=== PATIENT | male | born 1945 | race Caucasian/White ===

== ENCOUNTER → 2020-03-28 10:08 | Outpatient (BNVA) | payer MEDICARE, BC, SELFPAY | PROVIDERS: Family Provider Family Medicine; PCP Family Medicine; Visit Provider Registered Nurse | DX: E11.9 Type 2 diabetes mellitus without complications (principal); Z79.4 Long term (current) use of insulin | CPT/HCPCS: 80053; 80061; 83036; 85025 ==

== ENCOUNTER 2020-03-29 09:39 | Outpatient (CLI) | payer MEDICARE, BC, SELFPAY ==
--- NOTE | 2020-03-29 10:15 | USCV_ITS ---
Ashvin Hickey Age: 74 Gender: M : 1945 Exam Date: 03/29/2020 10:34 Ordering Phys: Luis Mast MD ([email or web address]) Technologist: Sedrick Irving Exam Location: [facility] [place] Indication: CHECK AO STENT HISTORY: check stent Diameter (cm) AP x Transverse x Length Velocity (cm/s) Waveform Prox Aorta: x x 33.70 Mid Aorta: x x Distal Aorta: x x Right Iliac Prox: x x Left Iliac Prox: x x Stent Prox Landing 1.71 x 1.35 x 69.00 Aneurysmal Sac Max 3.64 x 2.99 x 63.60 Lt Lat Sac Dim 1.36 Rt Lat Sac Dim 1.38 Stent Dist Landing 2.56 2.88 x 59.30 x Right Iliac Stent 1.53 x 1.61 x 44.70 Left Iliac Stent 1.49 x 1.68 x 51.00 Right Renal Art 125.70 Left Renal Art 132.90 FINDINGS: normal aortic stent Technically difficult study. Aneurysmal sac measuring 3.64 x 2.99 cm The proximal stent landing zone measured 1.71 x 1.35 cm. The distal stent landing zone measured 2.56 x 2.88 cm? Normal Doppler flow velocities CONCLUSIONS 1. Patent aortic stent graft 2. Aneurysm sac measured 3.64 x 2.99 cm. 3. Patent landing zones 4. Patent iliac stent grafts measuring 1.53 x 1.61on the right side and 1. 49 x 1. 68 on the left side 5. No evidence of endoleak Technically difficult study because of the poor ultrasonic window. Comparison with the previous study is difficult because of the difference in the technical quality Dr Gloria Lucas MD [facility] (Electronically Signed) Final Date: 29 March 2020 18:43 S
--- NOTE | 2020-03-29 11:00 | USCV_ITS ---
Ashvin Hickey Age: 74 Gender: M : 1945 Exam Date: 03/29/2020 10:40 Ordering Phys: Luis Mast MD ([email or web address]) Technologist: Lamonte Guadarrama Exam Location: [facility] [place] Indication: CHECK STENT Risk Factors: Previous Vascular Surgery: Right Brachial BP: / Left Brachial BP: / Right Left Velocity (cm/s) Spectral Plaque Velocity (cm/s) Spectral Plaque Syst/Diast Broadening Syst/Diast Broadening 63.70/ 16.30 Prox CCA 39.30 / 10.10 94.00/ 21.80 Mid CCA 93.20 / 20.20 93.20/ 11.70 Distal CCA 67.60 / 21.00 66.70/ 14.80 Prox ICA 174.10/ 60.70 105.10/35.00 Mid ICA 151.70/ 44.80 84.10/ 25.40 Distal ICA 64.40 / 21.10 174.40 ECA 143.30 1.12 ICA/CCA 1.63 Antegrade Vertebral Antegrade 87.10/ 20.90 cm/s 70.70/ 17.10 cm/s Bi Subclavian Bi 169.6 133.4 0 0 CONCLUSIONS Right ICA stenosis <50%. Moderate atheromatous plaque right carotid bulb/ICA. Left ICA stenosis 50-69%. Moderate atheromatous plaque left carotid bulb/ICA. Normal antegrade Doppler flow noted in the right vertebral artery. Normal antegrade Doppler flow noted in the left vertebral artery. Ayan Calabrese MD (Electronically Signed) Final Date: 30 March 2020 11:12 S
== END 2020-03-29 09:40 | disposition home or self-care (01) ==
LOC: RAD 09:45
PROVIDERS: PCP Family Medicine; Visit Provider Internal Medicine Cardiovascular Disease
DX: I65.23 Occlusion and stenosis of bilateral carotid arteries (principal); I71.4 Abdominal aortic aneurysm, without rupture
CPT/HCPCS: 93880; 93978

== ENCOUNTER → 2020-09-24 10:08 | Outpatient (BNVA) | payer MEDICARE, BC, SELFPAY | PROVIDERS: PCP Family Medicine; Visit Provider Internal Medicine | DX: R06.02 Shortness of breath (principal); R07.9 Chest pain, unspecified; R55 Syncope and collapse | CPT/HCPCS: 87635 ==

== ENCOUNTER 2020-09-26 10:25 | Outpatient (CLI) | payer MEDICARE, BC, SELFPAY ==
[2020-09-26 10:58] LABS: Basophils # 0.1 10^3/uL (0.0-0.1); Basophils % 0.8 %; Eosinophils # 0.4 10^3/uL (0.0-0.8); Eosinophils % 3.2 %; Hematocrit 40.6 % (42.0-52.0); Hemoglobin 13.2 g/dL (11.7-16.6); Lymphocytes # 3.1 10^3/uL (0.8-4.8); Lymphocytes % 25.2 %; Mean Corpuscular HGB Conc 32.5 g/dL (30.0-36.0); Mean Corpuscular Hemoglobin 28.6 pg (28.0-34.0); Mean Corpuscular Volume 87.9 fL (80-94); Mean Platelet Volume 9.3 fL (7.4-10.4); Monocytes # 1.2 10^3/uL (0.2-0.9); Monocytes % 9.5 %; Neutrophils # 7.54 10^3/uL (1.8-7.7); Neutrophils % 61.1 %; Nucleated Red Blood Cells % 0 %; Platelet Count 354 10^3/cmm (130-400); Red Blood Count 4.62 10^6/uL (4.1-5.3); Red Cell Distribution Width 14.3 % (12.1-15.1); White Blood Count 12.4 10^3/uL (4.0-10.0)
[2020-09-26 11:13] LABS: INR 1.02 (0.8-1.2)
[2020-09-26 11:19] LABS: Anion Gap 13.1 (5-19); Blood Urea Nitrogen 11 mg/dL (8-23); Calcium 8.8 mg/dL (8.5-10.5); Carbon Dioxide 28 mmol/L (22-29); Chloride 101 mmol/L (98-107); Glucose 145 mg/dL (65-115); Osmolality Calculated 288 mOsm/kg (285-295); Potassium 4.1 mmol/L (3.5-5.1); Sodium 138 mmol/L (136-145)
== END 2020-09-26 10:26 | disposition home or self-care (01) ==
PROVIDERS: PCP Family Medicine; Visit Provider Internal Medicine
DX: R06.02 Shortness of breath (principal); R07.9 Chest pain, unspecified; R55 Syncope and collapse
CPT/HCPCS: 36415; 80048; 85025; 85610

== ENCOUNTER 2020-09-28 07:26 | Day surgery (SDC) | payer MEDICARE, BC, SELFPAY ==
[2020-09-28] VITALS (23 sets, daily range): BP systolic 137–170; BP diastolic 54–76; PULSE 56–68; RESP 8–23; TEMP 36.8; O2SAT 91–99; BMI 26.9
[2020-09-28] MEDS: diphenhydrAMINE 50 mg Capsule PO (07:30)
--- NOTE | 2020-09-28 07:30 | XACV_ITS ---
Exam Room: 1 Ht: 173 cm Wt: 80 kg BSA: 1.98 m2 Gender: Male : 1945 Any Known Allergies: No known allergies Exam Priority: Routine Procedure(s): Procedure Description: Diagnostic procedure Procedure Description: PCI procedure Procedure Description: Left Heart Catheterization Procedure Description: Right Heart Catheterization Procedure Description: O2 saturation Procedure Description: Drug Eluting Coronary Stent Procedure Description: PTCA Procedure Description: Coronary Angiography Procedure Description: Percutaneous coronary intervention Diagnostic Cath Status: Elective Diagnostic Findings * LAD has no significant stenosis. It gives rise to a medium sized diagonal branch which does not have severe stenosis.. * CX is a medium sized vessel. It has diffuse moderate disease. It gives rise to OM branch that also has diffuse disease.. * RCA arises from right coronary cusp. * It has a long stent from proximal to distal vessel. * In the distal portion of the stent there is severe 95% in-stent restenosis. Proximally there is 20 to 30% in-stent restenosis. * D * istal Right Coronary Artery: Severe 95% stenosis, LANCE: 3 flow. * Right heart cath findings: RA pressure: 14/11(9) mmHg RV pressure: 41/6(13) millimeters of mercury PA pressure: 38/17(24) mmHg PCW: 17/24(17) mmHg PA sat: 59.2% Ao sat 94.1% Cardiac output by Aaron 3.5 L/min. * LM has 0% stenosis. * Coronary angiography shows right dominance. PCI Status: Elective PCI Indication: New Onset Angina <= 2 months Interventional Findings * We engaged the right coronary artery with a JR4 guide catheter. A 0.014 run-through guidewire was used to cross the distal RCA in-stent restenosis and was put in the large PLV branch. We used a 2.5 x 15 mm semicompliant balloon to predilate the stenosis. This was followed by placement of a 3.0x15 mm resolute Tyson drug-eluting stent. We used the stent balloon to dilate the proximal end of the prior stent as well. At this time final angiogram was performed that showed excellent stent expansion, LANCE-3 flow and no residual stenosis. Guidewire and guide catheter were removed. TR band was applied to achieve hemostasis. Patient left the Honing Machine Set Up Operator in a stable condition.. * Distal Right Coronary Artery: 95% stenosis treated with AB TREK 2.50X15 RX BALLOON and MDT R TYSON 3.0X15 JAMSHID. 0% residual stenosis, LANCE: 3 flow. Conclusions 1. Mildly elevated left-sided pressures. 2. There is severe coronary artery disease with one vessel disease. 3. Distal Right Coronary Artery was treated with Balloon and Drug Eluting Stent. Recommendations * Continue aspirin, Plavix and Xarelto for * 2 weeks. After 2 weeks * we will stop aspirin and continue on Plavix and Xarelto.. * High intensity statin therapy. * Aggressive risk factor control. * Follow-up with cardiology clinic. Interventional RX Recommendation: PCI w/o planned CABG Diagnostic RX Recommendation: PCI w/o planned CABG Anticoagulation: Heparin Pressures Phase:Rest AO : 139 / 40 ( 74 ) @ 3:06:00 AM 140 / 38 ( 76 ) @ 3:07:00 AM 131 / 42 ( 73 ) @ 3:08:00 AM 149 / 47 ( 84 ) @ 3:16:00 AM 125 / 42 ( 73 ) @ 3:22:00 AM 146 / 48 ( 83 ) @ 3:23:00 AM 163 / 50 ( 88 ) @ 3:26:00 AM 131 / 37 ( 58 ) @ 3:26:00 AM LV : 167 / -6 / @ 3:26:00 AM 166 / -5 / @ 3:26:00 AM RV : 41 / 6 / @ 2:51:00 AM PA : 38 / 17 ( 24 ) @ 2:52:00 AM RA : a wave = v wave = mean = 9 @ 2:50:00 AM O2 Content Phase:Rest PA : O2 Content O2: 59.2 @ 3:06:00 AM Saturations Phase:Rest AO : 94 @ 3:07:00 AM PA : 59 @ 3:06:00 AM Cardiac Output Phase:Rest Aaron : 3 @ 3:06:00 AM Aaron Cardiac Index: 2 @ 3:06:00 AM Valves Phase:DefaultPhase AV : 2.0 @ 9:32:58 AM 2.0 @ 9:32:58 AM AV Mean Gradient: 11.0 @ 9:32:58 AM Clinical Evaluation EBL: 5mL-10mL Procedural Details Procedure Consent Obtained. Pre-Procedure Time Out. Identified patient by full name and date of as verbalized by the patient/guarantor. Does the consent match the physician's order: Yes. Accurate & Complete Informed Consent: Yes. Inpatient/Outpatient History & Physical on Chart: Yes. If H&P is completed, is and addenduem needed: Yes; If yes, is the addendum complete: N/A. Visualize and Verify Site with Patient/Guarantor: N/A. Relevant Radiology Images available: Yes. Pre-op teaching completed and patient verbalized understanding. The risks, benefits, and alternatives of sedation and/or procedure were discussed by physician. The patient agrees to continue. Procedure started. [facility] Clinical Fraility Score: 3: Managing Well. Honing Machine Set Up Operator Indications: Suspected CAD. Chest Pain Symptom Assessment: Typical Angina Symptoms. Correct patient, site and procedure confirmed by cath team. Current diagnosis: Chest Pain. PERRLA. Strong, equal hand flotation tender bilaterally. Lungs clear x 5 lobes. IV Site on Arrival: 22 gauge in the left anticubital. IV Fluids: 0.9% NaCl at KVO. 0 mL infused prior to systems testing laboratory technician. Pre Procedural Pulses: bilateral dorsalis pedis was Doppled. Pre Procedural Pulses: bilateral posterior tibial was Doppled. Pre Procedural Pulses: bilateral radial was 2+. right radial was prepped with chloroprep then draped in the usual sterile fashion. right brachial was prepped with chloroprep then draped in the usual sterile fashion. Physician notified. Baseline sample Acquired. HR: 53 BPM. Physician arrived. Patient's family unavailable. Physician scrubbed in. Immediate Pre-Procedure Time Out. Correct Patient: Yes; Correct Procedure: Yes; Correct Site: Yes; Correct Patient Position: Yes; Correct Supplies: Yes; Dried Flammable Prep: Yes; Blood Products Available: N/A;. Lidocaine 1% infiltrated to the right brachial. sheath wire inserted through the IV catheter. IV catheter removed OTW. [place]Sand[place] MON catheter inserted. Oximetry samples were obtained. Normal venous range: 60-85%. Normal arterial range: 95-100%. Pressure measurements obtained. [place]Sandie out. Lidocaine 1% infiltrated to the right radial. Oxygen started at 2liters/min via nasal canula. Arterial access obtained. A 5 thai TIG catheter in over wire. wire out. contrast hand injected through the catheter. glidewire inserted through the catheter. Inventory is TR Glidewire Angled .038 260cm. Multiple views taken of left coronary artery. Catheter redirected to the RCA. Multiple views taken of right coronary artery. Catheter removed over the exchange wire. 6 thai JR 4 guide catheter was inserted over the wire. Runthrough guidewire was advanced through the guide catheter to lesion in the distal RCA. Inflation number : 1 A AB TREK 2.50X15 RX BALLOON was prepped and advanced across the Dist RCA , then inflated to 12 [place] for 0:33 seconds. Balloon out. Results checked. Inflation Number : 2 A YUE Garcia TYSON 3.0X15 JAMSHID -Lot Number# [id number] EXP: 06/15/2022 was prepped and advanced across the Dist RCA. The stent was deployed at 14 [place]IN[place]O for 0:31 seconds. Inflation number: 3 The stent balloon was then re-inflated across the Dist RCA to 14 [place]O for 0:15 seconds. Inflation number: 4 The stent balloon was then re-inflated across the Dist RCA to 18 [place]IN[place]O for 0:23 seconds. Stent balloon out over wire. Wire out. EDP Sample taken: LV 167/-7,21; HR: 61 BPM; SpO2: 94%. Pullback taken: LV 166/-6,21; AO 163/50(88); Mean: 11mmHg, Peak to Peak: 2mmHg, SEP: 19sec/min; HR: 62 BPM; SpO2: 92%. Guide catheter out. A Manual Compression was successful obtaining hemostatsis at the Right Brachial Vein insertion site. A TR Band was successful obtaining hemostatsis at the Right Radial artery insertion site. Post Procedure: Pulses reassessed and unchanged. PERRLA. Strong, equal hand flotation tender bilaterally. No VTE prophylaxis required. Contrast type used: Omnipaque 300 mgI/mL, 500 mL bottle. Post-op diagnosis: CAD. Complications: None. Estimated blood loss: 5mL-10mL. Procedure completed. Total IV fluids: 75 mL. Medication's Wasted: Lidocaine 1% = 15 mL. Medication's Wasted: Heparin = 2000 units. Medication's Wasted: Nitro = 49.8 mcg. Patient transferred by wheelchair to ICU. Vital chart was stopped. Access Site Site: Right Brachial Vein Sheath Size: 6 Fr Hemostasis Method: Manual Compression Hemostasis Success: Successful Site: Right Radial artery Sheath Size: 6 Fr Hemostasis Method: TR Band Hemostasis Success: Successful Procedure Medications Start: 8:46 AM Stop: 8:46 AM Medication: Versed Amount: 1 mg Route: I.V. Start: 8:46 AM Stop: 8:46 AM Medication: Fentanyl Amount: 50 mcg Route: I.V. Start: 8:59 AM Stop: 8:59 AM Medication: Nitrogylcerin Amount: 200 mcg Route: I.A. Start: 9:02 AM Stop: 9:02 AM Medication: Heparin Amount: 5000 units Route: I.V. Start: 9:13 AM Stop: 9:13 AM Medication: Heparin Amount: 4000 units Route: I.V. Start: 9:20 AM Stop: 9:20 AM Medication: Versed Amount: 1 mg Route: I.V. Start: 9:20 AM Stop: 9:20 AM Medication: Fentanyl Amount: 50 mcg Route: I.V. Start: 9:24 AM Stop: 9:24 AM Medication: Aspirin Amount: 325 mg Route: P.O. Start: 9:24 AM Stop: 9:24 AM Medication: Plavix Amount: 300 mg Route: P.O. I, the attending physician, have reviewed and verified all procedure medications. Yes, all medications given per verbal order History/Risk Factors Hypertension: Yes Dyslipidemia: Yes Peripheral Arterial Disease (PAD): Yes Myocardial Infarction (NH): No Obesity: No Renal Disease: No Prior 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 PCI: Yes CABG: No Valve Surgery: No Date of PCI: 11/04/2017 Report Signatures Finalized by Art Mays MD on 10/09/2020 06:45 PM
--- NOTE | 2020-09-28 08:25 | W.PM.OPSUD ---
Surgery/Procedure H&P Update DATE OF PROCEDURE: September 28, 2020 DATE H&P PERFORMED: 09/05/20 H&P UPDATE INFORMATION: I have reviewed H&P completed within last 30 days, I have examined patient prior to procedure and No changes to prior documentation PREOP DIAGNOSIS: Worsening angina PRIMARY INDICATION FOR PROCEDURE: Worsening angina PLANNED PROCEDURE: Operation Date: 09/28/20 08:30 Proposed Procedures p left and right Cardiac Catheterization 70588 R06.02(Bilateral) - Art Mays M.D Possible percutaneous coronary intervention PATIENT REASSESSED PRIOR TO SEDATION, WITH NO CHANGE NOTED: Yes PHYSICAL EXAM: alert, oriented x 3 and clear to auscultation bilaterally AIRWAY EVAL/ANESTHESIA PLAN: ASA III, Risks, benefits & alternatives of sedation and/or procedure discussed and Patient agrees to continue as planned
--- NOTE | 2020-09-28 09:37 | PC.CHAP ---
Pastoral Care Encounter/Spiritual Assessment Type of Contact [] Declined dock boss visit [] Patient/Family/Request visit [] Outpatient visit [] Follow-up visit [] Physician referral [] Code/Alert [] Routine visit [] Staff referral [] Actively dying [] Patient sleeping [] Family support [] [] Out of room [] Palliative care [] [] Receiving care in room [] Pre-surgical visit [] Trauma [] Long length of stay [x] ICU visit [] Other: Relational/Emotional Strength [] Patient feels connected with others/family/visitors/staff [] Distress [] Loneliness/isolation [] Abandonment Spirituality of Patient [] Person of Jewell [] Attends Nondenominational of their Jewell [] Believes in Prayer [] Reads Bible or Baptism materials [] There are Spiritual issues to be addressed 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 [x] Prayer [] Active listening [] Non-anxious presence [] Spiritual/emotional support [] Crisis/trauma care [] Spiritual counseling [] Bereavement support [] Provided bereavement packet [] Provided Bible/devotional materials [] Provided toy/stuffed animal, coloring book to patient or family member [] Provided Communion [] Anointing/Dahlgren [] Salvation [x] Completed spiritual assessment [] Other: Impact on Illness or Injury [] Angry [] Fearful [] Anxious [] Often cries [] Exhaustion [] Unable to work [] Unable to attend baptist [] Unable to walk/stand [] Unable to read [] Unable to drive [] Unable to eat/drink [] Unable to sleep [] Unable to be with family [] Patient intubated [] Other: Summary Time spent with patient
--- NOTE | 2020-09-28 09:40 | PC.NURSE ---
Pt to ICU from [facility]. Pressure dressing on right elbow and TR band on right wrist. Radial pulse faint, hand and lower arm dusky in color. Pt denies any pain. Sinus bradycardia noted on monitor.
--- NOTE | 2020-09-28 11:30 | PC.NURSE ---
Release of TR band started
--- NOTE | 2020-09-28 11:47 | PC.NURSE ---
1145: 2ML RELEASED FROM TR BAND. CAP REFIL ABT 4 SEC.
--- NOTE | 2020-09-28 12:00 | PC.NURSE ---
Pressure dressing right elbow removed Bioclusive and gauze dressing applied. Pt tolerated well.
[2020-09-28 12:19] LABS: Glucose Point of Care 121 mg/dL (70-110)
--- NOTE | 2020-09-28 14:15 | PC.NURSE ---
TR band removed. NO bleeding noted. NO hematoma noted. Pt tolerated well. Bioccluisve dressing applied.
[2020-09-28 17:25] LABS: Glucose Point of Care 179 mg/dL (70-110)
[2020-09-28] MEDS: ferrous sulfate EC 325 mg Tablet PO (17:36)
--- NOTE | 2020-09-28 19:00 | PC.NURSE ---
Report given to Sophia Roque
--- NOTE | 2020-09-28 19:18 | PC.NURSE ---
Shift summary: VSS. no hematoma or bleeding noted form left or right heart cath sites : RIght AC and right wrist. Pt's heart rhythm stable no ectopy sinus bradycardia to sinus rhythm. No pain per pt. Pt able to get out of bed this evening without difficulty. Pt uses urinal, clear pale yellow urine. IV fluids remain infusing into left AC. Pt received 10 unit Aspart insulin at lunch and again at dinner. Dosage discussed with Dr Mays, as not pt's usual home dose, pt's on consistent carb diet. He stated he normally eats about 60 carbs each meal.
[2020-09-28] MEDS: insulin glargine 100 units/1 mL 40 UNIT SUBCUT (20:17)
[2020-09-28] MEDS: sotalol 80 mg Tablet 120 MG PO (20:18)
[2020-09-28 20:24] LABS: Glucose Point of Care 316 mg/dL (70-110)
[2020-09-29] VITALS (9 sets, daily range): BP systolic 163–176; BP diastolic 68–76; PULSE 60–62; RESP 12–22; TEMP 36.6; O2SAT 92–94
[2020-09-29 05:26] LABS: Basophils # 0.1 10^3/uL (0.0-0.1); Basophils % 0.6 %; Eosinophils # 0.4 10^3/uL (0.0-0.8); Eosinophils % 3.1 %; Hematocrit 38.4 % (42.0-52.0); Hemoglobin 12.6 g/dL (11.7-16.6); Lymphocytes % 23.7 %; Mean Corpuscular HGB Conc 32.8 g/dL (30.0-36.0); Mean Corpuscular Volume 88.3 fL (80-94); Mean Platelet Volume 9.6 fL (7.4-10.4); Monocytes # 1.2 10^3/uL (0.2-0.9); Neutrophils # 7.76 10^3/uL (1.8-7.7); Neutrophils % 62.3 %; Nucleated Red Blood Cells % 0 %; Platelet Count 339 10^3/cmm (130-400); Red Blood Count 4.35 10^6/uL (4.1-5.3); Red Cell Distribution Width 14.3 % (12.1-15.1); White Blood Count 12.5 10^3/uL (4.0-10.0)
[2020-09-29 05:44] LABS: Blood Urea Nitrogen 13 mg/dL (8-23); Calcium 8.8 mg/dL (8.5-10.5); Carbon Dioxide 23 mmol/L (22-29); Chloride 104 mmol/L (98-107); Glucose 145 mg/dL (65-115); Osmolality Calculated 289 mOsm/kg (285-295); Sodium 138 mmol/L (136-145)
[2020-09-29 05:57] LABS: Anion Gap 14.7 (5-19); Potassium 3.7 mmol/L (3.5-5.1)
[2020-09-29 07:40] LABS: Glucose Point of Care 139 mg/dL (70-110)
[2020-09-29] MEDS: sotalol 80 mg Tablet 120 MG PO (08:06)
--- NOTE | 2020-09-29 08:38 | PC.NURSE ---
at bedside talking with patient.
[2020-09-29] MEDS: amlodipine 10 mg Tablet PO (09:19)
[2020-09-29] MEDS: atorvastatin 40 mg Tablet 20 MG PO (09:19)
[2020-09-29] MEDS: hydroCHLOROthiazide 25 mg Tablet 12.5 MG PO (09:19)
[2020-09-29] MEDS: clopidogrel 75 mg Tablet PO (09:19)
[2020-09-29] MEDS: rivaroxaban 10 mg Tablet 20 MG PO (09:19)
[2020-09-29] MEDS: pantoprazole DR 40 mg Tablet PO (09:20)
[2020-09-29] MEDS: ferrous sulfate EC 325 mg Tablet PO (09:20)
[2020-09-29] MEDS: losartan 50 mg Tablet 100 MG PO (09:20)
--- NOTE | 2020-09-29 10:17 | P.SS_ITS ---
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 He was experiencing these symptoms with minimal exertion. Plan was for right and left heart cath with possible percutaneous coronary intervention. Review of Systems 2 General: Reports: 10 or more systems reviewed and unremarkable except in HPI and below Const: Reports: fatigue; Denies: fever(s), chills or body aches Eyes: Denies: change in vision ENMT: Denies: throat pain or odynophagia Card: Reports: chest pain, palpitations, swelling of feet/ankles, pre-syncope, dyspnea on exertion and orthopnea; Denies: lightheadedness Resp: Reports: dyspnea and productive cough; Denies: non-productive cough or wheezing GI: Denies: nausea, vomiting or heartburn : Reports: difficulty urinating Musc: Denies: back pain Skin/Breast: Denies: rash or pruritus Neuro: Denies: headache(s), numbness in extremities, weakness in extremities or dizziness Psych: Denies: anxiety or depression Stanislav/Lymph: Reports: easy bruising and easy bleeding Home Meds/Allergies Home Medications and Allergies Home Medications Medication Instructions Recorded Confirmed Type ferrous sulfate 325 mg (65 mg 325 mg PO BID 02/10/20 09/27/20 History iron) tablet pantoprazole 40 mg tablet,delayed 40 mg PO DAILY 07/05/20 09/28/20 History release Allergies Allergy/AdvReac Type Severity Reaction Status Date / Time No Known Allergies Allergy Verified 09/27/20 13:03 PFSH Acute PFSH: Medical History Abdominal aortic aneurysm (AAA) Afib Anticoagulation adequate with anticoagulant therapy Carotid stenosis COPD (chronic obstructive pulmonary disease) Diabetes mellitus Diabetic neuropathy Erectile dysfunction HTN (hypertension), benign Hypertriglyceridemia Peripheral arterial disease Tobacco abuse Surgical History H/O heart artery stent S/P femoral-popliteal bypass surgery S/P right coronary artery (RCA) stent placement hx of Distal RCA and Prox RCA Social History Smoking and tobacco status: current every day smoker cigarettes Packs smoked per day: 1 Household members: spouse Marital status: service: Yes branch: [employer] Current occupational status: retired Vitals/I&O/Wt Last Vital Signs Temp 98.2 F 09/28/20 10:15 Pulse 62 09/29/20 06:00 Resp 16 09/29/20 06:00 BP 176/76 09/29/20 09:20 Pulse Ox 92 09/29/20 06:00 09/28/20 09/29/20 09/29/20 22:59 06:59 14:59 Intake Total 2000 / 2000 100 / 2100 240 / 240 Output Total 500 / 1000 1200 / 2200 400 / 400 Balance 1500 / 1000 -1100 / -100 -160 / -160 Weight last 48 hrs Weight 177 lb Weight 172 lb Physical Exam Narrative: EXAM NARRATIVE: GENERAL: Patient is alert, awake and oriented x3. [] NECK: No jugular vein distension. [] HEENT: No cyanosis. No icterus. No pallor. [] HEART: Regular S1 and S2. No murmur, rub or gallop. [] LUNGS: Clear to auscultate bilaterally. [] ABDOMEN: Soft, nontender and nondistended. Positive bowel sounds. No guarding, rebound or tenderness. [] CENTRAL NERVOUS SYSTEM: Grossly nonfocal. [] EXTREMITIES: Lower extremities with no edema bilaterally. Pulses palpable in the lower extremities, both dorsalis pedis and posterior tibial. [] Hospital Course Admission Diagnoses Unstable angina/worsening angina Hospital Course We proceeded with right and left heart cath. This demonstrated severe 95% instent restenosis of the distal RCA stent. He underwent successful revascularization with JAMSHID x 1. Patient is on Xarelto and Plavix at home. We will add aspirin. Patient will need to be on triple therapy for 2 weeks and then can continue with plavix and Xarelto, discontinuing the aspirin. He did well overnight. His radial artery access site is normal without evidence of hematoma. Labs remained stable. SSS Data Data Completed and Pending: Pending at discharge Category Date Time Status LUMBER SALVAGER request for service Routin e Exams 09/28/20 07:30 Taken Discharge Plan Discharge Patient Disposition: Home Condition: Stable Prescriptions: New aspirin 81 mg tablet,delayed release (DR/EC) 81 mg PO DAILY Qty: 14 RF: 0 Continued ferrous sulfate 325 mg (65 mg iron) tablet 325 mg PO BID RF: 0 pantoprazole 40 mg tablet,delayed release (DR/EC) 40 mg PO DAILY RF: 0 Xarelto 20 mg tablet 20 mg PO DAILY Qty: 90 RF: 1 clopidogrel 75 mg tablet 75 mg PO DAILY Qty: 90 RF: 1 losartan 100 mg tablet 100 mg PO DAILY Qty: 90 RF: 1 sucralfate 1 gram tablet See Rx Instructions .ROUTE .COMPLEX Qty: 360 RF: 0 insulin glargine [Lantus Solostar U-100 Insulin] 100 unit/mL (3 mL) insulin pen See Rx Instructions .ROUTE .COMPLEX Qty: 15 RF: 0 simvastatin 20 mg tablet See Rx Instructions .ROUTE .COMPLEX Qty: 90 RF: 0 hydrochlorothiazide 12.5 mg tablet See Rx Instructions .ROUTE .COMPLEX Qty: 90 RF: 0 amlodipine 10 mg tablet See Rx Instructions .ROUTE .COMPLEX Qty: 90 RF: 0 insulin aspart U-100 [Novolog Flexpen U-100 Insulin] 100 unit/mL (3 mL) insulin pen 20 unit SUBCUT TID 90 Days Qty: 54 RF: 1 sotalol 80 mg tablet See Rx Instructions .ROUTE .COMPLEX Qty: 60 RF: 0 Held metformin 500 mg tablet 500 mg PO BID Qty: 180 RF: 0 Hold Instructions: Resume on 10/02/20. Discharge Orders: Discharge Order (Routine); Ordered 09/29/20 Ordered By: Art Mays Referrals: Art Mays M.D [Physician] - 1 month Ginna Barnes FNP [Nurse Practitioner] - 7-10 days Discharge Diet: Cardiac and Diabetic Discharge Activity: Increase activity as tolerated Patient Instructions: Left Heart Catheterization (DC), Coronary Angioplasty (DC) Activity Restrictions/Additional Instructions: Please do not lift more than 5 pounds of weight for the next 5 days. Continue aspirin, plavix and Xarelto for 14 days and then continue on Xarelto an d Plavix. Can stop aspirin after 14 days. Attestations Medical Necessity Statement*: Care not expected to cross 2 midnights. Time Spent in Patient Care*: greater than 30 min Quality Metrics Clinical Quality Measures: During this hospital stay, did patient experience: None Coding Level of Care Code Acute Cash Accountant for Sarah Terrazas
[2020-09-29] MEDS: aspirin 81 mg EC Tablet PO (11:05)
--- NOTE | 2020-09-29 12:04 | PC.NURSE ---
Patient IV removed and patient tolerated well. Reviewed patient discharge with patient and spouse. Patient and educated to continue on all home medications including his Plavix and Xarelto add aspirin for 14 days 81 mg then stop aspirin but continue his the Plavix and Xarelto. No lifting more than 5 pounds in the right arm for 5 days. Patient is A&Ox4. Respirations even and non-labored on room air. Patient wheel chaired to private car.
== END 2020-09-29 11:30 | disposition home or self-care (01) ==
LOC: CCL 07:28 → ICU 09-29 07:42
PROVIDERS: PCP Family Medicine; Visit Provider Internal Medicine
DX: I25.10 Atherosclerotic heart disease of native coronary artery without angina pectoris (principal); F17.210 Nicotine dependence, cigarettes, uncomplicated; Z95.5 Presence of coronary angioplasty implant and graft; J44.9 Chronic obstructive pulmonary disease, unspecified; E11.40 Type 2 diabetes mellitus with diabetic neuropathy, unspecified; I10 Essential (primary) hypertension; I48.91 Unspecified atrial fibrillation
CPT/HCPCS: 12345; 36415; 36416; 80048; 82962; 85025; 93460; 96372; C1725; C1751; C1769; C1874; C1887; C1894; C9600; J1644; J1815 ×2; J2250; J3010; J3490; J7030; Q0163; Q9967

== ENCOUNTER → 2020-10-07 09:46 | Outpatient (BNVA) | payer MEDICARE, BC, SELFPAY | PROVIDERS: PCP Family Medicine; Visit Provider Nurse Practitioner Family | DX: I25.119 Atherosclerotic heart disease of native coronary artery with unspecified angina pectoris (principal) | CPT/HCPCS: 80048 ==

== ENCOUNTER 2020-11-25 11:28 | Outpatient (CLI) | payer MEDICARE, BC, SELFPAY ==
--- NOTE | 2020-11-25 11:49 | CT_ITS ---
WS: [id number] CT ABDOMEN AND PELVIS NONCONTRAST HISTORY: CHRONIC KIDNEY DISEASE TECHNIQUE: Imaging performed through the abdomen and pelvis. Coronal and sagittal reformats are submi tted. All CT scans at [facility] use at least one of these dose optimization techniques: automated exposure control; mA and/or kV adjustment per patient size (includes targeted exams where d ose is matched to clinical indication); or iterative reconstruction. DLP: 990.1 mGycm COMPARISON: 12/17/2016 and 11/23/2016 Lower thorax: Chronic emphysematous changes with mild mosaic attenuation at the lung bases. No mass o r pulmonary nodule. Heart size is slightly enlarged. Small hiatal hernia. Liver: Normal size liver with granulomata. No bile duct dilatation. Low-attenuation 5 mm cyst in the posterior RIGHT lobe. Gallbladder: Normal gallbladder. Pancreas: Normal size and attenuation. Normal pancreatic duct. No pancreatitis or mass. Spleen: Normal size spleen with granulomata. Adrenal glands: Nodular hyperplastic LEFT adrenal gland is similar to the prior study from 2017. Smal l adenomas are likely. RIGHT adrenal gland is negative. Right kidney: Normal size RIGHT kidney. There are numerous calcifications within the renal pelvis whi ch are nonobstructing. Vascular calcifications are also present. Low-attenuation cortical mass upper pole measures 11 mm. Noted to be a cyst on a prior CT. Left kidney: Multiple cysts associated with the LEFT kidney. The largest is lobulated and extends fro m the cortex into the pelvis measuring 3.6 x 5.7 cm. The cyst were present on the prior study. There are additional vascular calcifications and nonobstructing calcifications. No solid mass identified. Aorta: Extensive atherosclerosis aorta. Prior endovascular grafting. Maximum diameter of 2.9 cm with no increase in size since the prestenting. Graft extends into the iliac arteries. No free fluid, intraperitoneal air or significant lymphadenopathy. GI tract: Prior appendectomy. There are numerous diverticula throughout the colon. Greatest distribut ion in the descending and sigmoid colon. No obstruction or free air. No acute diverticulitis or absce ss. Abdominal wall: Negative. No hernia. Pelvis: Well-distended urinary bladder. Lobulated soft tissue mass along the RIGHT posterior lateral urinary bladder measures 2.7 x 2.7 cm. There is additional mild lobulation posteriorly which is proba adalgisa the prostate gland. Osseous structures: Degenerative disc disease at L4-5. Otherwise mild changes of spondylosis. Bilater al foraminal central stenosis is significant at L4-5 and L5-S1. CT/CT abdomen pelvis wo con [id number] IMPRESSION: 1. Solid lobulated mass in the posterior lateral RIGHT urinary bladder suspici ous for transitional neoplasm until proven otherwise. Recommend urologic consul t. 2. Bilateral low-attenuation renal masses noted to be be cysts on a prior CT f rom 2017. Nonobstructing calcifications. 3. Splenic and hepatic granulomata. 4. Status post endovascular grafting of abdominal aortic aneurysm. 5. Very heavy calcification at the origin of the SMA which could very well be occluded. Also similar to the prior study from 2017. 6. Moderate diffuse diverticulosis without diverticulitis.
== END 2020-11-25 11:29 | disposition home or self-care (01) ==
LOC: RADWPI 11:30
PROVIDERS: PCP Family Medicine; Visit Provider Nurse Practitioner
DX: N18.9 Chronic kidney disease, unspecified (principal); K57.90 Diverticulosis of intestine, part unspecified, without perforation or abscess without bleeding; I70.8 Atherosclerosis of other arteries; I71.4 Abdominal aortic aneurysm, without rupture; K75.3 Granulomatous hepatitis, not elsewhere classified; N28.89 Other specified disorders of kidney and ureter; N32.9 Bladder disorder, unspecified
CPT/HCPCS: 74176

== ENCOUNTER → 2020-11-29 10:20 | Outpatient (BNVA) | payer MEDICARE, BC, SELFPAY | PROVIDERS: PCP Family Medicine; Visit Provider Urology | DX: R31.9 Hematuria, unspecified (principal); N39.9 Disorder of urinary system, unspecified; Z95.5 Presence of coronary angioplasty implant and graft; C67.9 Malignant neoplasm of bladder, unspecified; N32.89 Other specified disorders of bladder; R31.0 Gross hematuria | CPT/HCPCS: 81003 ==

== ENCOUNTER → 2020-12-06 06:00 | Day surgery (SDC) | payer MEDICARE, BC, SELFPAY ==
[2020-12-06 11:09] VITALS: BMI 25.8
--- NOTE | 2020-12-06 11:47 | ANES.PREANE2 ---
Pre-Anesthetic Assessment Pre-Anesthetic Assessment: Height/Weight: Height 1.73 m Weight 77.111 kg Preop Diagnosis: Newly diagnosed bladder cancer Proposed Procedure: Operation Date: 12/12/20 15:15 Proposed Procedures p Cystoscopy 18679 C67.9(Not Applicable) - Alli Corral MD s Transurethral Resection Bladder Tumor(Not Applicable) - Alli Corral MD Familial anesthetic complications: None Social: Social History: Tobacco and No alcohol Exam: Pre-Anes Outpt Exam: alert, oriented x 3, clear to auscultation bilaterally and regular rate & rhythm Airway: Cervical ROM: WNL Dentition: Partials Pulmonary: Pulmonary: COPD CV/HEM: CV/HEM: Afib, CAD (stents (one placed in october) - Ellis and Davon have consulted - he will stay on plavix for surgery), HTN and PVD Metabolic: Metabolic: DM and Hyperlipidemia Neuropsych: Comments: carotid stenosis Anesthetic Plan: ASA status: 4 Anesthesia: General Risk of > 500 ml blood loss (7ml/kg in children): No PFSH Anesthesia PFSH: Medical History Abdominal aortic aneurysm (AAA) Afib Anticoagulation adequate with anticoagulant therapy Bladder cancer Papillary lesion appears well differentiated diagnosed 11/29/2020 Carotid stenosis COPD (chronic obstructive pulmonary disease) Coronary artery disease Diabetes mellitus Diabetic neuropathy Erectile dysfunction HTN (hypertension), benign Hypertriglyceridemia Peripheral arterial disease Proteinuria Tobacco abuse Surgical History H/O heart artery stent History of abdominal aortic aneurysm (AAA) repair History of carotid endarterectomy Hx of appendectomy Previous back surgery S/P femoral-popliteal bypass surgery S/P right coronary artery (RCA) stent placement hx of Distal RCA and Prox RCA Social History Smoking and tobacco status: current every day smoker cigarettes Packs smoked per day: 1 Household members: spouse Marital status: service: Yes branch: [employer] Current occupational status: retired Data Anesthesia Cardiac Studies: No Data to Display
[2020-12-06 12:12] LABS: Basophils # 0.1 10^3/uL (0.0-0.1); Basophils % 0.9 %; Eosinophils # 0.8 10^3/uL (0.0-0.8); Eosinophils % 6.6 %; Hemoglobin 11.4 g/dL (11.7-16.6); Lymphocytes # 2.5 10^3/uL (0.8-4.8); Lymphocytes % 20.7 %; Mean Corpuscular HGB Conc 32.6 g/dL (30.0-36.0); Mean Corpuscular Volume 89.1 fL (80-94); Mean Platelet Volume 9.3 fL (7.4-10.4); Monocytes # 1.2 10^3/uL (0.2-0.9); Monocytes % 9.7 %; Neutrophils # 7.48 10^3/uL (1.8-7.7); Neutrophils % 61.8 %; Nucleated Red Blood Cells % 0 %; Platelet Count 405 10^3/cmm (130-400); Red Blood Count 3.93 10^6/uL (4.1-5.3); White Blood Count 12.1 10^3/uL (4.0-10.0)
[2020-12-06 12:40] LABS: Alanine Aminotransferase 10 U/L (0-41); Albumin Level 3.4 g/dL (3.5-5.2); Alkaline Phosphatase 71 IU/L (40-130); Aspartate Amino Transferase 13 U/L (0-40); Blood Urea Nitrogen 18 mg/dL (8-23); Calcium 8.4 mg/dL (8.5-10.5); Carbon Dioxide 24 mmol/L (22-29); Chloride 99 mmol/L (98-107); Globulin 3.6 g/dL (1.3-4.6); Glucose 223 mg/dL (65-115); Osmolality Calculated 283 mOsm/kg (285-295); Sodium 132 mmol/L (136-145); Total Bilirubin 0.3 mg/dL (0.15-1.2)
== END ==
PROVIDERS: PCP Family Medicine; Visit Provider Urology
DX: Z01.818 Encounter for other preprocedural examination (principal); J44.9 Chronic obstructive pulmonary disease, unspecified; I48.91 Unspecified atrial fibrillation; I25.10 Atherosclerotic heart disease of native coronary artery without angina pectoris; Z95.5 Presence of coronary angioplasty implant and graft; Z79.02 Long term (current) use of antithrombotics/antiplatelets; I10 Essential (primary) hypertension; F17.210 Nicotine dependence, cigarettes, uncomplicated
CPT/HCPCS: 36415; 80053; 85025

== ENCOUNTER → 2020-12-06 10:22 | Outpatient (BNVA) | payer MEDICARE, BC, SELFPAY | PROVIDERS: PCP Family Medicine; Visit Provider Urology | DX: C67.9 Malignant neoplasm of bladder, unspecified (principal); Z20.822 Contact with and (suspected) exposure to COVID-19 | CPT/HCPCS: 87635 ==

== ENCOUNTER → 2020-12-23 09:29 | Outpatient (BNVA) | payer MEDICARE, BC, SELFPAY | PROVIDERS: PCP Family Medicine; Visit Provider Urology | DX: C67.4 Malignant neoplasm of posterior wall of bladder (principal); R31.0 Gross hematuria | CPT/HCPCS: 81003 ==

== ENCOUNTER → 2020-12-29 09:18 | Outpatient (BNVA) | payer MEDICARE, BC, SELFPAY | PROVIDERS: PCP Family Medicine; Visit Provider Urology | DX: Z20.822 Contact with and (suspected) exposure to COVID-19 (principal); C67.9 Malignant neoplasm of bladder, unspecified | CPT/HCPCS: 87635 ==

== ENCOUNTER 2021-01-02 15:46 | Observation (INO) | payer MEDICARE, BC, SELFPAY ==
[2020-12-30 10:48] VITALS: BMI 25.8
--- NOTE | 2020-12-30 10:56 | ECG_ITS ---
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 Measurements Intervals [place] Rate: 56 P: 60 MI: 176 QRS: -35 QRSD: 101 T: 121 QT: 445 QTc: 433 Interpretive Statements SINUS BRADYCARDIA INFERIOR MYOCARDIAL INFARCTION [40+ ms Q WAVE AND/OR ST/T ABNORMALITY IN II/aVF], OF INDETERMINATE AGE MODERATE T-WAVE ABNORMALITY, CONSIDER LATERAL ISCHEMIA [-0.1+ mV T WAVE IN I/aVL/V5/V6] Compared to ECG 09/20/2018 09:53:15 Myocardial infarct finding now present T-wave abnormality now present Possible ischemia now present Sinus rhythm no longer present Ventricular premature complex(es) no longer present Left ventricular hypertrophy no longer present ST (T wave) deviation no longer present Electronically Signed On 12-30-2020 21:10:00 CDT by Gloria Lucas M.D. [id number]
[2020-12-30 11:22] LABS: Basophils # 0.1 10^3/uL (0.0-0.1); Basophils % 0.9 %; Eosinophils # 0.5 10^3/uL (0.0-0.8); Eosinophils % 4.6 %; Hematocrit 35.2 % (42.0-52.0); Hemoglobin 11.3 g/dL (11.7-16.6); Lymphocytes # 2.8 10^3/uL (0.8-4.8); Lymphocytes % 26.8 %; Mean Corpuscular HGB Conc 32.1 g/dL (30.0-36.0); Mean Corpuscular Volume 90.3 fL (80-94); Mean Platelet Volume 9.1 fL (7.4-10.4); Monocytes # 1.2 10^3/uL (0.2-0.9); Monocytes % 11.2 %; Neutrophils # 5.84 10^3/uL (1.8-7.7); Neutrophils % 56.1 %; Nucleated Red Blood Cells % 0 %; Platelet Count 338 10^3/cmm (130-400); Red Cell Distribution Width 14.4 % (12.1-15.1); White Blood Count 10.4 10^3/uL (4.0-10.0)
--- NOTE | 2020-12-30 11:32 | ANES.PREANE2 ---
Pre-Anesthetic Assessment Pre-Anesthetic Assessment: Height/Weight: Height 1.73 m Weight 77.111 kg Preop Diagnosis: Newly diagnosed bladder cancer Proposed Procedure: Operation Date: 01/02/21 16:25 Proposed Procedures p Cystoscopy 05781 C67.9(Not Applicable) - Alli Corral MD s Transurethral Resection Bladder Tumor(Not Applicable) - Alli Corral MD Was Beta Alissa taken within 24 hours: Yes Was Clonidine taken within 24 hours: N/A Social: Social History: Tobacco and No alcohol Exam: Pre-Anes Outpt Exam: alert, oriented x 3 and regular rate & rhythm Airway: Submandibular: WNL Cervical ROM: Other (Poor extension) MP: 3 Dentition: Full Pulmonary: Pulmonary: COPD CV/HEM: CV/HEM: Afib (h/o afib), Anemia, CAD (Stents), HTN and PVD (AAA) Comments: EKG sinus ranulfo Metabolic: Metabolic: DM (Poorly controlled) Anesthetic Plan: ASA status: 3 Anesthesia: General Risk of > 500 ml blood loss (7ml/kg in children): No PFSH Anesthesia PFSH: Medical History Abdominal aortic aneurysm (AAA) Afib Anticoagulation adequate with anticoagulant therapy Bladder cancer Papillary lesion appears well differentiated diagnosed 11/29/2020 Carotid stenosis COPD (chronic obstructive pulmonary disease) Coronary artery disease Diabetes mellitus Diabetic neuropathy Erectile dysfunction HTN (hypertension), benign Hypertriglyceridemia Peripheral arterial disease Proteinuria Tobacco abuse Surgical History H/O heart artery stent History of abdominal aortic aneurysm (AAA) repair History of carotid endarterectomy Hx of appendectomy Previous back surgery S/P femoral-popliteal bypass surgery S/P right coronary artery (RCA) stent placement hx of Distal RCA and Prox RCA Social History Smoking and tobacco status: current every day smoker cigarettes Packs smoked per day: 1 Household members: spouse Marital status: service: Yes branch: [employer] Current occupational status: retired Data Anesthesia CBC & Chem 7: 12/30/20 11:14 12/30/20 11:14 Other Labs: Laboratory Results - last 48 hr 12/30/20 11:14 WBC 10.4 H RBC 3.90 L Hgb 11.3 L Hct 35.2 L MCV 90.3 MCH 29.0 MCHC 32.1 RDW 14.4 Plt Count 338 MPV 9.1 Neut % (Auto) 56.1 Lymph % (Auto) 26.8 [place] % (Auto) 11.2 Eos % (Auto) 4.6 Baso % (Auto) 0.9 Neut # (Auto) 5.84 Lymph # (Auto) 2.8 [place] # (Auto) 1.2 H Eos # (Auto) 0.5 Baso # (Auto) 0.1 Nucleated RBC % (auto) 0 Nucleated RBCs # 0.0 Cardiac Studies: No Data to Display
[2020-12-30 11:40] LABS: Alanine Aminotransferase 9 U/L (0-41); Albumin Level 3.9 g/dL (3.5-5.2); Alkaline Phosphatase 71 IU/L (40-130); Anion Gap 14.1 (5-19); Aspartate Amino Transferase 13 U/L (0-40); Blood Urea Nitrogen 20 mg/dL (8-23); Calcium 8.3 mg/dL (8.5-10.5); Carbon Dioxide 25 mmol/L (22-29); Chloride 103 mmol/L (98-107); Globulin 3.2 g/dL (1.3-4.6); Glucose 118 mg/dL (65-115); Osmolality Calculated 290 mOsm/kg (285-295); Potassium 4.1 mmol/L (3.5-5.1); Sodium 138 mmol/L (136-145); Total Bilirubin 0.3 mg/dL (0.15-1.2); Total Protein 7.1 g/dL (6.6-8.7)
[2021-01-02] VITALS (13 sets, daily range): BP systolic 133–163; BP diastolic 53–88; PULSE 61–70; RESP 12–19; TEMP 36.4–36.9; O2SAT 92–100
--- NOTE | 2021-01-02 14:09 | P.ANESUD_ITS ---
Pre-Anesthetic Update Pre-Anesthetic Assessment: Date of Surgery/Procedure: 01/02/21 Preop Svetlana gnosis: Newly diagnosed bladder cancer Proposed Procedure: Operation Date: 01/02/21 16:25 Proposed Procedures p Cystoscopy 48113 C67.9(Not Applicable) - Alli Corral MD s Transurethral Resection Bladder Tumor(Not Applicable) - Alli Corral MD Any changes to Pre-Anesthetic Assessment?: No Exam: Pre-Anes Outpt Exam: alert, oriented x 3, clear to auscultation bilaterally and regular rate & rhythm Cardiac Studies: No Data to Display
[2021-01-02] MEDS: levofloxacin-dextrose 5 % 500 MG/100 ML PREMIX 100 MG IV (14:35)
[2021-01-02] MEDS: sodium chloride 0.9% 1,000 ML 30 ML IV (14:36)
--- NOTE | 2021-01-02 14:42 | W.PM.OPSUD ---
Surgery/Procedure H&P Update DATE OF PROCEDURE: January 02, 2021 DATE H&P PERFORMED: 12/23/20 H&P UPDATE INFORMATION: I have reviewed H&P completed within last 30 days, I have examined patient prior to procedure, No changes to prior documentation and H&P is in [facility] on date indicated CHANGES TO PREVIOUS DOCUMENTATION: Stable hemoglobin hematocrit. No severe bleeding since office visit. PREOP DIAGNOSIS: Newly diagnosed bladder cancer PLANNED PROCEDURE: Operation Date: 01/02/21 16:25 Proposed Procedures p Cystoscopy 84218 C67.9(Not Applicable) - Alli Corral MD s Transurethral Resection Bladder Tumor(Not Applicable) - Alli Corral MD
[2021-01-02 14:46] LABS: Glucose Point of Care 132 mg/dL (70-110)
--- NOTE | 2021-01-02 15:21 | P.OP_ITS ---
Operative Report Date of procedure: January 02, 2021 Pre-op Diagnosis: Newly diagnosed bladder cancer Post-op diagnosis: same Procedure Done: Cystoscopy, transurethral section of bladder tumor medium Specimens removed/disposition: Bladder tumor specimens Pathology: Bladder tumor chips Surgeon: Ellis Anesthesia: General Estimated blood loss: <10 cc Urine output: Not measured Complications: None Findings: Papillary tumor involving the right lateral wall completely resected with deep sampling of the base. Muscle visualized at the base of the resection. Tumor was approximately 3 to 3.5 cm in diameter. Disposition: PACU Brief History: Mr. 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 He had recently undergone coronary artery stenting and was on a minimum of 3 months of multiple anticoagulants which required a delay in the surgical procedure. He had no severe bleeding during that time. He was able to make it to the full 3 months timeframe required for safety regarding the stenting. Has been off of his Plavix now for about 5 days. Continues aspirin. Procedure: After routine preoperative evaluation examination and obtaining of informed consent he was taken to the operating suite on 01/02/2021 where general anesthesia was administered without difficulty after appropriate timeout was performed, SCDs confirmed to be functioning, preoperative antibiotics administered, beta-reji protocol confirmed. Prepped and draped in the usual sterile fashion in dorsolithotomy position paying careful attention to avoiding pressure points. 21 Haitian cystoscope with 30 degree lens was introduced into the urethral meatus and advanced into the bladder under videoscopy. The bladder neck was high and somewhat difficult to traverse but it was doable without trauma. The bladder was systematically examined. The papillary lesion on the right lateral wall was the only lesion identified. It was oozing somewhat. The urethra was then calibrated with Woodward sounds and easily accommodated 28 Haitian. 2% lidocaine jelly was instilled into the urethra and then a 25 Haitian continuous-flow resectoscope sheath with visual obturator in place was advanced into the bladder. Again the bladder neck was high and somewhat obstructive the passage of the scope but it was manipulated into the bladder without extreme difficulty or trauma. The gyrus bipolar system was utilized for resection. The super loop was the initial probe the tumor was resected down to the base were deep sampling was conducted down to visualize muscle fiber. All visible tumor was resected with no obvious residual grossly identified. The button probe was then utilized for fulguration of the base with meticulous hemostasis. The bladder was watched for couple minutes to make sure that there was no active bleeding given his higher risk of complications related to bleeding because of continued ASPIRIN. The bladder was then drained with a 20 Haitian three-way Meléndez catheter with 30 cc placed in the balloon. E flux was clear. Light CBI was initiated for prophylaxis against clot formation. He tolerated the procedure well without complications and was awakened in the operating room and returned to the recovery in stable condition. PLANS: 1. Admit to observation status. Continue home medications. 2. Can wean off CBI overnight if capable. 3. Mitomycin instillation in the morning before consideration for catheter removal.
--- NOTE | 2021-01-02 15:41 | P.PCN_ITS ---
PACU note PACU note: VSS, Good respiratory effort, report to GAS OPERATIONS ANALYST Post-Anesthesia Exam: awake
--- NOTE | 2021-01-02 15:41 | PM.PACU ---
PACU note PACU note: VSS, Good respiratory effort, report to EMERGENCY MEDICAL DISPATCHER Post-Anesthesia Exam: awake
[2021-01-02 15:57] LABS: Glucose Point of Care 133 mg/dL (70-110)
--- NOTE | 2021-01-02 16:27 | ANE.PACU2 ---
Inpatient post-anesthesia follow up: Airway intact: Yes Vital signs: Temperature 97.6 F Pulse Rate 61 Respiratory Rate 19 Blood Pressure 134/53 Pulse Oximetry 96 Oxygen Delivery Me thod Room Air Oxygen Flow Rate Fraction of Inspir ed Oxygen Hydration adequate: Yes Nausea and vomiting: No Pain level: 2 Mental status: Baseline
--- NOTE | 2021-01-02 16:55 | SUR.PHASEI ---
1556 REPORT CALLED TO FLOOR PT AWAKE ALERT, CBI INFUSING TO OGLESBY AT MOD RATE, YELLOW URINE NOTED, IV PATENT GENE STRAP TO THIGH TO SECURE OGLESBY. PT TO FLOOR WITH RN.
[2021-01-02] MEDS: sotalol 80 mg Tablet PO (17:36)
[2021-01-02] MEDS: ferrous sulfate EC 325 mg Tablet PO (17:36)
[2021-01-02] MEDS: metformin 500 mg Tablet PO (17:36)
--- NOTE | 2021-01-02 18:53 | PC.NURSE ---
SHIFT SUMMARY Patient received from PACU with approximately 1300ml of CBI fluid in one bag and 1400ml in the other. There has been a total of 2700mL irrigated into pt's 3 way herr with a total of 3300 out. equalling 600 in urine output. urine is clear and yellow, no clots noted. CBI was turned off around 1700, no discomfort noted from patient. no manual irrigation needed. report given to Vielka JOHNSTON
[2021-01-02 20:23] LABS: Glucose Point of Care 247 mg/dL (70-110)
[2021-01-02] MEDS: hyDRALAzine 50 mg Tablet PO (21:17)
[2021-01-02] MEDS: insulin glargine 100 units/1 mL 40 UNIT SUBCUT (21:18)
--- NOTE | 2021-01-03 01:25 | PC.NURSE ---
CBI Upon assessment of patient's urine output this nurse noted patient's urine output has changed from yellow straw to pink, and has now changed to a darker pink. Patient's CBI was restarted at a slow continuous drip.
[2021-01-03 04:13] VITALS: BP 165/63; PULSE 71; RESP 18; TEMP 36.7; O2SAT 92
--- NOTE | 2021-01-03 05:43 | PC.NURSE ---
CBI CBI stopped at 0540. Total output was 850mL; with 700mL being the irrigant and 150mL being urine output.
[2021-01-03 06:39] LABS: Glucose Point of Care 113 mg/dL (70-110)
--- NOTE | 2021-01-03 07:21 | P.DS_ITS ---
Discharge Providers Date of Admission: 01/02/21 15:46 Date of Discharge: January 03, 2021 Attending Provider at Admission: Alli Corral MD Attending Provider at Discharge: Alli Corral MD Primary Care Provider: Bree Perkins MD Diagnoses at Discharge Discharge Diagnosis (1) Bladder cancer: Status: Acute Permanent problem details: Papillary lesion appears well differentiated diagnosed 11/29/2020 Qualifiers: Bladder location: posterior wall Qualified Code(s): 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 (2) Coronary artery disease: Status: Acute Qualifiers: Associated angina: with unspecified angina Coronary Disease-Associated Artery/Lesion type: [place] artery [place] vs. transplanted heart: [place] heart Qualified Code(s): I25.119 - Atherosclerotic heart disease of [place] coronary artery with unspecified angina pectoris Reason for Visit Reason for Visit: Newly diagnosed bladder cancer Hospital Course Hospital Course He was admitted on the day of the procedure (01/02/2021) which went very well. Findings intraoperatively showed a roughly 3-3.5 centimeter papillary tumor right lateral bladder wall which was completely resected and deep bladder wall base sampling was conducted. He tolerated the procedure well without complications. He was observed overnight and on the morning of postoperative day #1 mitomycin was instilled into the bladder which she held for 1 hour per protocol. Informed consent was obtained. The mitomycin was drained, the catheter removed, and a 6 bottle void was conducted. It was confirmed that he was emptying well with no severe bleeding. He was discharged on postoperative day #1 in stable condition. We reviewed holding the Plavix for 3 more days to reduce the risk of postoperative bleeding. The benefits and risks of this were thoroughly discussed. We had reviewed this preoperatively as well. PLANS: 1. We will speak early next week regarding the pathology report 2. We will schedule the first surveillance in approximately 2 months. 3. He has been encouraged to call if he has recurrent significant bleeding. Is to stop the Plavix first if that occurs. Physical Exam Const: COMMON NORMALS: no acute distress, alert and well nourished GENERAL APPEARANCE: well kempt and well developed ORIENTATION/CONSCIOUSNESS: not confused Neck/C-Spine: COMMON NORMALS: full ROM Resp: COMMON NORMALS: normal respiratory effort EFFORT & INSPECTION: No labored and No Actively coughing GI: COMMON NORMALS: Soft to palpation, non-tender and no masses PALPATION: Yes Soft to palpation : OTHER: Urine is clear. He does have a small amount of old blood around the catheter at the meatus. Expected given the procedure. Not actively bleeding. Mitomycin instillation went well. Neuro: SENSORIUM/ORIENTATION: Yes alert Psych: COMMON NORMALS: mental status grossly normal APPEARANCE: Yes grossly normal and Yes well kempt ATTITUDE: Yes calm and Yes engaged Skin: COMMON NORMALS: no rashes or lesions noted and no jaundice GENERAL SKIN EXAM: no rashes or lesions noted Urinary Catheter Management^: 3-way Urethral CBI: Cath Placed During This Visit: yes Reason for Continuing Indwelling Catheter: Perioperative Use in Selected Surgeries Urinary Catheter Date of Insertion: 01/02/21 Urinary Catheter Time of Insertion: 16:06 Discharge Data Data Completed and Pending: Pending at discharge Category Date Time Status Pathology: Surgic al [PTH] Routine Pth 01/02/21 15:44 Ordered Labs from last 24 hours 01/03/21 01/02/21 01/02/21 06:30 20:04 15:53 POC Glucose 113 H 247 H 133 H 01/02/21 14:41 POC Glucose 132 H Vitals: Last Vital Signs Temp 98.0 F 01/03/21 04:13 Pulse 71 01/03/21 04:13 Resp 18 01/03/21 04:13 BP 165/63 01/03/21 04:13 Pulse Ox 92 01/03/21 04:13 Discharge Plan Discharge Patient Disposition: Home Condition: Stable Prescriptions: Continued duloxetine [Cymbalta] 20 mg capsule,delayed release(DR/EC) 20 mg PO DAILY RF: 0 sucralfate 1 gram tablet 1 g PO DAILY PRN (Reason: constapation) RF: 0 amlodipine 10 mg tablet 20 mg PO DAILY RF: 0 ferrous sulfate 325 mg (65 mg iron) tablet 325 mg PO BID RF: 0 pantoprazole 40 mg tablet,delayed release (DR/EC) 40 mg PO DAILY RF: 0 metformin 500 mg tablet 500 mg PO BID Qty: 180 RF: 0 Hold Instructions: Resume on 10/02/20. simvastatin 20 mg tablet See Rx Instructions .ROUTE .COMPLEX Qty: 90 RF: 0 insulin aspart U-100 [Novolog Flexpen U-100 Insulin] 100 unit/mL (3 mL) insulin pen 20 unit SUBCUT TID 90 Days Qty: 54 RF: 1 aspirin [Adult Low Dose Aspirin] 81 mg tablet,delayed release (DR/EC) 81 mg PO DAILY Qty: 90 RF: 0 hydralazine 50 mg tablet 50 mg PO TID Qty: 90 RF: 5 losartan 100 mg tablet 100 mg PO DAILY Qty: 90 RF: 0 hydrochlorothiazide 25 mg tablet 25 mg PO BID RF: 0 Lantus Solostar U-100 Insulin 100 unit/mL (3 mL) insulin pen 40 unit SUBCUT QPM RF: 0 sotalol 80 mg tablet 80 mg PO BID RF: 0 Held clopidogrel 75 mg tablet 75 mg PO DAILY Qty: 90 RF: 1 Hold Instructions: Resume on 01/08/21. Discontinued Xarelto 20 mg tablet 20 mg PO DAILY Qty: 30 RF: 0 Discharge Orders: Discharge Order (Routine); Ordered 01/03/21 Ordered By: Alli Corral Referrals: Alli Corral MD [Physician] - 03/07/21 9:00 am (1. Phone call early next week to confirm pathology report 2. Surveillance cystoscopy, first 1, approximately 2 months) Discharge Diet: Usual diet Discharge Activity: Limit activity as instructed Patient Instructions: Meléndez Catheter Care, Transurethral Resection of Bladder Tumors (DC), Urinary Leg Bag (GEN), Opioid Safety Activity Restrictions/Additional Instructions: 1. Restart Plavix on 01/08/2021. 2. Continue holding XARELTO. Will need to follow-up with cardiology to confirm plans for this medication. 3. Avoid lifting anything >10 pounds for the next month. This is especially important due to the resumption of blood thinners which will make your risk of bleeding much higher. 4. Please call if you have any concerns or questions regarding bleeding or other symptoms. 5. If you have not heard from my office by early next week please call so we can review your pathology report together. 6. The first surveillance cystoscopy will be planned for approximately 2 months and we will do this in my office. Discharge Attestations Time Spent in Discharge Care*: greater than 30 min Time Spent in Smoking Cessation: 3 to 10 minutes Quality Metrics Clinical Quality Measures During this hospital stay, did patient experience: None Coding Level of Care Code Acute Chg FW DC note Exam Detailed Diagnoses Bladder cancer C67.4 Bladder location: posterior wall Coronary artery disease I25.119 Associated angina: with unspecified angina Coronary Disease-Associated Artery/Lesion type: [place] artery [place] vs. transplanted heart: [place] heart
[2021-01-03 07:43] VITALS: BP 159/63; PULSE 77; RESP 17; TEMP 37.2; O2SAT 91
[2021-01-03] MEDS: ferrous sulfate EC 325 mg Tablet PO (08:53)
[2021-01-03] MEDS: duloxetine 20 mg Capsule PO (08:53)
[2021-01-03] MEDS: metformin 500 mg Tablet PO (08:54)
[2021-01-03] MEDS: sotalol 80 mg Tablet PO (08:54)
[2021-01-03 08:55] VITALS: BP 159/63
[2021-01-03] MEDS: atorvastatin 40 mg Tablet 20 MG PO (08:55)
[2021-01-03] MEDS: aspirin 81 mg EC Tablet PO (08:55)
[2021-01-03] MEDS: sucralfate 1 gm Tablet PO (08:55)
[2021-01-03] MEDS: hydroCHLOROthiazide 25 mg Tablet PO (08:55)
[2021-01-03] MEDS: hyDRALAzine 50 mg Tablet PO (08:55)
[2021-01-03] MEDS: pantoprazole DR 40 mg Tablet PO (08:55)
[2021-01-03] MEDS: losartan 50 mg Tablet 100 MG PO (08:55)
[2021-01-03] MEDS: amlodipine 10 mg Tablet 20 MG PO (08:56)
--- NOTE | 2021-01-03 10:14 | PC.CHAP ---
Pastoral Care Encounter/Spiritual Assessment Type of Contact [] Declined strategic alliances manager visit [] Patient/Family/Request visit [] Outpatient visit [] Follow-up visit [] Physician referral [] Code/Alert [x] Routine visit [] Staff referral [] Actively dying [] Patient sleeping [] Family support [] [] Out of room [] Palliative care [] [] Receiving care in room [] Pre-surgical visit [] Trauma [] Long length of stay [] ICU visit [] Other: Relational/Emotional Strength [x] Patient feels connected with others/family/visitors/staff [] Distress [] Loneliness/isolation [] Abandonment Spirituality of Patient [x] Person of Jewell [x] Attends Pres[employer]beterian of their Jewell [x] Believes in Prayer [] Reads Bible or Restoration materials [] There are Spiritual issues to be addressed [employer] 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 [x] Prayer [x]x Active listening [x] Non-anxious presence [x] Spiritual/emotional support [] Crisis/trauma care [] Spiritual counseling [] Bereavement support [] Provided bereavement packet [] Provided Bible/devotional materials [] Provided toy/stuffed animal, coloring book to patient or family member [] Provided Communion [] Anointing/[place] [] Salvation [] Completed spiritual assessment [] Other: Impact on Illness or Injury [] Angry [] Fearful [] Anxious [] Often cries [] Exhaustion [] Unable to work [] Unable to attend yazidism [] Unable to walk/stand [] Unable to read [] Unable to drive [] Unable to eat/drink [] Unable to sleep [] Unable to be with family [] Patient intubated [] Other: Summary doing very well Time spent with patient 15 min
[2021-01-03 11:26] VITALS: BP 160/68; PULSE 69; RESP 17; TEMP 36.7; O2SAT 95
[2021-01-03 11:27] LABS: Glucose Point of Care 256 mg/dL (70-110)
--- NOTE | 2021-01-03 12:46 | PM.MISC ---
Miscellaneous Note Note: MITOMYCIN INTRAVESICAL INSTILLATION: 40 mg of mitomycin instilled into the bladder this morning. Patient held for 1 hour without difficulty. Drained completely. Catheter removed. Tolerated well.
[2021-01-03 13:17] VITALS: BP 160/68; PULSE 69; RESP 17; TEMP 36.7; O2SAT 95
--- NOTE | 2021-01-03 13:19 | PC.NURSE ---
pt discharge instructions explained and questions answered. pt iv taken out and intact. pt taken to exit via wheelchair.
--- NOTE | 2021-01-06 18:00 | PC.RESP ---
Smoking Cessation and Pulmonary Rehab information sent to patient.
== END 2021-01-03 13:22 | disposition home or self-care (01) ==
LOC: MEDSURG 15:46
PROVIDERS: Admitting Provider Urology; PCP Family Medicine; Visit Provider Urology
PROC: 0TJB8ZZ Inspection of Bladder, Via Natural or Artificial Opening Endoscopic (ICD-10-PCS; CPT 52000; principal; 2021-01-02 16:15)
PROC: 0TBB8ZZ Excision of Bladder, Via Natural or Artificial Opening Endoscopic (ICD-10-PCS; CPT 52235; 2021-01-02 16:15)
DX: C67.4 Malignant neoplasm of posterior wall of bladder (principal); I25.119 Atherosclerotic heart disease of native coronary artery with unspecified angina pectoris; J44.9 Chronic obstructive pulmonary disease, unspecified; I48.91 Unspecified atrial fibrillation; I25.10 Atherosclerotic heart disease of native coronary artery without angina pectoris; Z95.5 Presence of coronary angioplasty implant and graft; I10 Essential (primary) hypertension; E11.40 Type 2 diabetes mellitus with diabetic neuropathy, unspecified; F17.210 Nicotine dependence, cigarettes, uncomplicated
CPT/HCPCS: 52235; 36416; 80053; 82962; 85025; 88305; 93005; 96372; G0378; J0330; J1815 ×2; J1956; J2405; J2704; J2710; J3010; J3490; J7030; J9280

== ENCOUNTER 2021-02-02 12:47 | Outpatient (CLI) | payer MEDICARE, BC, SELFPAY ==
--- NOTE | 2021-02-02 13:11 | XR_ITS ---
WS: [id number] Right hip, AP and frog leg views, 02/02/2021 Clinical Data: PAIN IN RIGHT HIP Comparison: None. Findings: No fractures or dislocations are seen. The right hip joint is intact. The soft tissues are not remark able. The adjacent pelvis is normal. There is a right common iliac artery stent. There are surgical clips in the right inguinal area and a lso overlying the scrotum. XR/XR hip RT 2-3V wo/w pel* [id number] Impression: Negative right hip. Tonnis classification: grade 0: normal radiographs
== END 2021-02-02 12:48 | disposition home or self-care (01) ==
LOC: RADWPI 13:09
PROVIDERS: PCP Family Medicine; Visit Provider Nurse Practitioner Family
DX: M25.551 Pain in right hip (principal)
CPT/HCPCS: 73502

== ENCOUNTER 2021-02-16 13:03 | Outpatient (CLI) | payer MEDICARE, BC, SELFPAY ==
--- NOTE | 2021-02-16 | XR_ITS ---
WS: [id number] LUMBAR SPINE: 3 VIEWS TECHNIQUE: AP, lateral and L5-S1 spot. HISTORY: SCIATICA, LOW BACK PAIN COMPARISON: None available. Lumbar vertebra are normally aligned. Severe degenerative disc disease at L4-5 and L5-S1 with corresponding facet joint arthritis. There do es appear to be significant foraminal stenosis at the L5-S1 level. No fractures. Moderate-sized bridg ing osteophytes bilaterally but greatest on the LEFT. SI joints are symmetric bilaterally. No soft tissue abnormalities. Aorta iliac arterial stent is noted. There is been a additional arterial stent extending into the RIG HT external iliac artery. XR/XR lumbar spine 2-3V* [id number] IMPRESSION: 1. Advanced degenerative disc disease and facet arthritis at L4-5 and L5-S1. 2. No acute fractures. 3. Mild to moderate diffuse spondylosis at the remaining levels.
== END 2021-02-16 13:04 | disposition home or self-care (01) ==
PROVIDERS: PCP Registered Nurse; Visit Provider Nurse Practitioner Family
DX: M54.5 Low back pain (principal); M54.30 Sciatica, unspecified side; M51.36 Other intervertebral disc degeneration, lumbar region; M47.816 Spondylosis without myelopathy or radiculopathy, lumbar region; M47.817 Spondylosis without myelopathy or radiculopathy, lumbosacral region
CPT/HCPCS: 72100

== ENCOUNTER 2021-03-02 10:19 | Outpatient (CLI) | payer MEDICARE, BC, SELFPAY ==
--- NOTE | 2021-03-02 10:26 | CT_ITS ---
WS: [id number] CT LUMBAR SPINE, noncontrast. HISTORY: SCIATICA, OTHER INTERVERTEBRAL DISC DEGENERATION, LUMBAR region. TECHNIQUE: Contiguous 2.5 mm axial imaging are performed. Sagittal and coronal reformats are submitte d and reviewed. All CT scans at [facility] use at least one of these dose optimization te chniques: automated exposure control; mA and/or kV adjustment per patient size (includes targeted exa ms where dose is matched to clinical indication); or iterative reconstruction. IV contrast: None DLP: 1898.0 mGycm COMPARISON: None available. Posterior lumbar alignment is normal. Moderate to severe disc space narrowing at L4-5 and L5-S1. No f ractures. L1-2: Normal. L2-3: Mild annular disc bulging with osteophytic ridging. Bony foraminal narrowing is mild bilaterall y. L3-4: Mild annular disc bulging with osteophytic ridging. Broad-based focal disc protrusion in the RI GHT foramen does abut and slightly displace the RIGHT L3 nerve root. There is also mild encroachment into the lateral recess and subarticular foramen encroaching upon the L4 nerve root. Mild LEFT forami nal narrowing with mild central stenosis. L4-5: Moderate annular disc bulging with osteophytic ridging. Osteophytes encroach upon the ventral t hecal sac and into the lateral recesses and subarticular foramina. Largest osteophyte encroaches into the RIGHT lateral recess. Moderate to severe bilateral lateral recess, subarticular recess and [place] inal stenosis. Predominantly due to osteophyte disease. Mild central canal narrowing. Laminectomy def ect posteriorly posterior bone fusion at the laminectomy site. L5-S1: Mild osteophytic ridging. There is significant bony foraminal stenosis involving the subarticu lar recesses and foramina. There is also an osteophyte encroaching upon the ventral thecal sac. There is disc and osteophyte encroachment upon S1 and L5 nerve roots bilaterally. Extensive calcification within the [place] abdominal aorta. There is heavy calcification in the SMA or igin. Prior endovascular stent grafting of the infrarenal aorta extending into the iliac arteries. Ma ximum diameter of the [place] aneurysm is 3.0 cm with no change. Partially visualized cystic masses in the LEFT kidney. These have been previously described. CT/CT lumbar spine wo con* [id number] IMPRESSION: 1. Moderate to severe bilateral lateral recess, subarticular recess and forami nal stenosis at L4-5 with mild central stenosis. Stenosis predominantly due to osteophyte disease but there is also disc disease. Encroachment upon the L4 and L5 nerve roots. Most significant encroachment on the RIGHT due to an osteophyt e contacting the L5 nerve root. 2. Significant bony foraminal stenosis involving the subarticular recesses and foramina bilaterally with encroachment upon the L5 and S1 nerve roots in the c entral thecal sac. 3. RIGHT foraminal disc protrusion encroaching upon the RIGHT L3 and also the L4 nerve root. 4. Mild LEFT foraminal stenosis at L3-4 and mild central stenosis.
== END 2021-03-02 10:20 | disposition home or self-care (01) ==
PROVIDERS: PCP Family Medicine; Visit Provider Family Medicine
DX: M51.36 Other intervertebral disc degeneration, lumbar region (principal); M54.30 Sciatica, unspecified side; M48.061 Spinal stenosis, lumbar region without neurogenic claudication; M51.26 Other intervertebral disc displacement, lumbar region; M25.78 Osteophyte, vertebrae
CPT/HCPCS: 72131

== ENCOUNTER 2021-03-09 12:30 | Outpatient (CLI) | payer MEDICARE, BC, SELFPAY ==
--- NOTE | 2021-03-09 12:22 | ECG_ITS ---
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 Measurements Intervals [place] Rate: 126 P: [place]: QRS: -24 QRSD: 102 T: 82 QT: 320 QTc: 465 Interpretive Statements POSSIBLE ATRIAL FLUTTER WITH RAPID VENTRICULAR RESPONSE BORDERLINE LEFT AXIS DEVIATION [QRS AXIS < -20] NONSPECIFIC ST & T-WAVE ABNORMALITY ABNORMAL RHYTHM ECG Compared to ECG 12/30/2020 11:19:17 Sinus bradycardia no longer present Myocardial infarct finding no longer present Possible ischemia no longer present T-wave abnormality still present Electronically Signed On 03-11-2021 7:34:55 CDT by Inge Dacosta M.D. [id number]
[2021-03-09 12:23] VITALS: BMI 25.8
--- NOTE | 2021-03-09 12:52 | ANES.PREANE2 ---
Pre-Anesthetic Assessment Pre-Anesthetic Assessment: Height/Weight: Height 1.73 m Weight 77.111 kg Preop Diagnosis: Recurrent bladder cancer Proposed Procedure: Operation Date: 03/13/21 14:05 Proposed Procedures p Transurethral Resection Bladder Tumor 49383 c67.9(Not Applicable) - Alli Corral MD s Cystoscopy(Not Applicable) - Alli Corral MD Familial anesthetic complications: None Social: Social History: Tobacco and No alcohol Exam: Pre-Anes Outpt Exam: alert, oriented x 3 and clear to auscultation bilaterally Airway: Cervical ROM: WNL MP: 3 Dentition: Partials Pulmonary: Pulmonary: COPD CV/HEM: CV/HEM: Afib, CAD (stent placed in september 2020 on plavix), HTN and PVD Comments: AAA Metabolic: Metabolic: DM and Hyperlipidemia Anesthetic Plan: ASA status: 4 Anesthesia: General Risk of > 500 ml blood loss (7ml/kg in children): No Other Pertinent Information: Patient's EKG has changed now showing A fib w/ RVR at rate of 126 and patient is stating he woke up this morning with chest pain despite taking sotalol and he is still having some chest pain at present. Told patient he will need to go to ER. Patient and elected to drive over to ER rather than be taken from pre-op. PFSH Anesthesia PFSH: Medical History Abdominal aortic aneurysm (AAA) Afib Anticoagulation adequate with anticoagulant therapy Bladder cancer Papillary lesion appears well differentiated diagnosed 11/29/2020 Carotid stenosis COPD (chronic obstructive pulmonary disease) Coronary artery disease Diabetes mellitus Diabetic neuropathy Erectile dysfunction HTN (hypertension), benign Hypertriglyceridemia Peripheral arterial disease Proteinuria Tobacco abuse Surgical History H/O heart artery stent History of abdominal aortic aneurysm (AAA) repair History of carotid endarterectomy Hx of appendectomy Previous back surgery S/P femoral-popliteal bypass surgery S/P right coronary artery (RCA) stent placement hx of Distal RCA and Prox RCA Social History Smoking and tobacco status: current every day smoker cigarettes Packs smoked per day: 1 Household members: spouse Marital status: service: Yes branch: [employer] Current occupational status: retired Data Anesthesia CBC & Chem 7: 03/09/21 12:37 03/09/21 12:37 Cardiac Studies: No Data to Display
[2021-03-09 12:59] LABS: Basophils # 0.1 10^3/uL (0.0-0.1); Basophils % 0.8 %; Eosinophils # 0.3 10^3/uL (0.0-0.8); Hematocrit 34.1 % (42.0-52.0); Hemoglobin 10.6 g/dL (11.7-16.6); Lymphocytes # 2.7 10^3/uL (0.8-4.8); Lymphocytes % 18.9 %; Mean Corpuscular HGB Conc 31.1 g/dL (30.0-36.0); Mean Corpuscular Hemoglobin 27.4 pg (28.0-34.0); Mean Corpuscular Volume 88.1 fL (80-94); Mean Platelet Volume 9.3 fL (7.4-10.4); Monocytes # 1.1 10^3/uL (0.2-0.9); Monocytes % 7.8 %; Neutrophils # 9.86 10^3/uL (1.8-7.7); Neutrophils % 69.7 %; Nucleated Red Blood Cells % 0 %; Platelet Count 516 10^3/cmm (130-400); Red Blood Count 3.87 10^6/uL (4.1-5.3); Red Cell Distribution Width 15.5 % (12.1-15.1); White Blood Count 14.2 10^3/uL (4.0-10.0)
--- NOTE | 2021-03-09 13:02 | SUR.PREOP ---
patient came in today for pre op for surgery scheduled on 03/13. patient had ekg done per anesthesia protocol due to recent chest pain. ekg showed a-fib with rvr and still has current chest pain. anesthesia advised him to go to the ER to be checked out. patient stated he wanted to go get his scheduled covid test done first then would be going to the ER, per . patient left ambulatory to Urgent Care clinic for Covid test.
[2021-03-09 13:22] LABS: Alanine Aminotransferase 11 U/L (0-41); Albumin Level 3.6 g/dL (3.5-5.2); Alkaline Phosphatase 82 IU/L (40-130); Anion Gap 14.2 (5-19); Aspartate Amino Transferase 12 U/L (0-40); Blood Urea Nitrogen 17 mg/dL (8-23); Calcium 9.4 mg/dL (8.5-10.5); Carbon Dioxide 25 mmol/L (22-29); Chloride 100 mmol/L (98-107); Creatinine Clr Calc Pharmacy 59.9037; Globulin 3.2 g/dL (1.3-4.6); Glucose 319 mg/dL (65-115); Osmolality Calculated 294 mOsm/kg (285-295); Potassium 4.2 mmol/L (3.5-5.1); Sodium 135 mmol/L (136-145); Total Bilirubin 0.2 mg/dL (0.15-1.2); Total Protein 6.8 g/dL (6.6-8.7)
== END 2021-03-09 16:00 | disposition home or self-care (01) ==
LOC: OPS 07-17 15:54
PROVIDERS: Anesthesiology; PCP Family Medicine; Visit Provider Urology
DX: R94.31 Abnormal electrocardiogram [ECG] [EKG] (principal); C67.9 Malignant neoplasm of bladder, unspecified; I48.91 Unspecified atrial fibrillation; R07.9 Chest pain, unspecified; Z20.822 Contact with and (suspected) exposure to COVID-19
CPT/HCPCS: 80053; 85025; 87635; 93005

== ENCOUNTER 2021-03-09 13:31 | Inpatient (IN) | payer MEDICARE, BC, SELFPAY ==
--- NOTE | 2021-03-09 13:35 | XR_ITS ---
WS: [id number] Portable AP upright chest, 03/09/2021 Clinical Data: cp Comparison: Portable chest 09/16/2018. Findings: No nodules, masses or effusions are seen. There is bibasilar interstitial infiltrate which is probably chronic fibrosis. No acute pneumonia is noted. There is no pneumothorax. The heart is nor mal. The pulmonary vascularity is not increased. The aortic arch shows minimal calcification. Monitor leads are on the chest wall. XR/XR chest 1V portable [id number] Impression: Bibasilar interstitial infiltrate unchanged.
--- NOTE | 2021-03-09 13:38 | ECG_ITS ---
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 Measurements Intervals [place] Rate: 113 P: [place]: QRS: -32 QRSD: 99 T: 91 QT: 345 QTc: 473 Interpretive Statements ATRIAL FIBRILLATION WITH RAPID VENTRICULAR RESPONSE MINIMAL VOLTAGE CRITERIA FOR LVH, CONSIDER NORMAL VARIANT INFERIOR MYOCARDIAL INFARCTION,PROBABLY OLD ST DEPRESSION, CONSIDER SUBENDOCARDIAL INJURY [0.1+ mV ST DEPRESSION] Compared to ECG 03/09/2021 12:27:05 Myocardial infarct finding now present ST (T wave) deviation now present T-wave abnormality no longer present Electronically Signed On 03-10-2021 14:17:00 CDT by Inge Dacosta M.D. [id number]
[2021-03-09 13:41] VITALS: BP 128/68; PULSE 134; RESP 16; TEMP 36.6; O2SAT 99; BMI 25.8
--- NOTE | 2021-03-09 14:20 | W.ED.ARRPALP ---
HPI - Arrhythmia/Palpitations General: Chief Complaint: Arrhythmia/Palpitations Stated Complaint: Chest pain, AFIB Time Seen by Provider: 03/09/21 13:34 History of Present Illness: HPI narrative: The patient is a 75-year-old male who comes to the ER complaining of left-sided chest pain. He went to an outpatient anesthesia appointment related to a bladder cancer that he has scheduled surgery on and they did an EKG and noted him to be in A. fib RVR. He has chronic A. fib and has had episodes of RVR before. He has been off of his Plavix and Xarelto preparing for the procedure. He comes to the ER complaining of left-sided chest pain. He has coronary artery disease with multiple stents placed as early as earlier this year. MD complaint: rapid heart beat, irregular heart beat and atrial fibrillation Duration: constant Severity: moderate Context: occurred during rest Arrhythmia history: atrial fibrillation Associated symptoms: Reports no associated symptoms; Deny anxiety Review of Systems General: Reports: 10 or more systems reviewed and unremarkable except in HPI and below Const: Denies: fatigue Eyes: Denies: change in vision, blurry vision or eye redness ENMT: Denies: throat pain, swelling of lips/tongue, ear or mastoid pain or nasal congestion Card: Reports: chest pain and palpitations; Denies: irregular heart rhythm, edema, dyspnea on exertion or orthopnea Resp: Denies: dyspnea, productive cough or non-productive cough GI: Denies: abdominal pain, diarrhea or GI cramping : Denies: flank pain, urinary frequency or urinary urgency Musc: Denies: neck pain, back pain, extremity pain, joint pain, joint redness, limited range of motion or muscle weakness Skin/Breast: Denies: rash, pruritus, erythema, skin pain or skin tenderness Neuro: Denies: headache(s), numbness in extremities, weakness in extremities, sensory changes, difficulty walking, dizziness, confusion or Slurred speech present Psych: Denies: anxiety or depression Endo: Denies: polyuria All/Imm: Denies: urticaria, throat swelling or tongue swelling PFSH ED PFSH: Medical History Abdominal aortic aneurysm (AAA) Afib Anticoagulation adequate with anticoagulant therapy Bladder cancer Papillary lesion appears well differentiated diagnosed 11/29/2020 Carotid stenosis COPD (chronic obstructive pulmonary disease) Coronary artery disease Diabetes mellitus Diabetic neuropathy Erectile dysfunction HTN (hypertension), benign Hypertriglyceridemia Peripheral arterial disease Proteinuria Tobacco abuse Surgical History H/O heart artery stent History of abdominal aortic aneurysm (AAA) repair History of carotid endarterectomy Hx of appendectomy Previous back surgery S/P femoral-popliteal bypass surgery S/P right coronary artery (RCA) stent placement hx of Distal RCA and Prox RCA Social History Smoking and tobacco status: current every day smoker cigarettes Packs smoked per day: 1 Household members: spouse Marital status: service: Yes branch: [employer] Current occupational status: retired Physical Exam Const: COMMON NORMALS: no acute distress, average body habitus, patient oriented x3, no limitations, healthy appearing, alert and well nourished GENERAL APPEARANCE: cooperative, comfortable, well kempt and well developed ORIENTATION/CONSCIOUSNESS: Yes awake, Yes oriented to person, Yes oriented to place and Yes oriented to time HENMT: COMMON NORMALS: normocephalic, external ears normal and Normal external nose present HEAD & SCALP: normal to inspection and normocephalic NOSE: Normal external nose present EXTERNAL EAR: Yes external ears normal MOUTH: Normal oral and palatal mucosa present THROAT: posterior oropharynx normal Eye: COMMON NORMALS: Equal, round and reactive pupils present and EOMs intact bilaterally GENERAL EYE: appearance normal, both eyes and all related structures PUPIL: Yes Equal, round and reactive pupils present Neck/C-Spine: COMMON NORMALS: full ROM, no lymphadenopathy, no meningeal signs and no JVD GENERAL: Yes normal visual inspection Lymph: LYMPHATIC: no lymphadenopathy noted Chest: COMMONS NORMALS: normal inspection of the chest and normal palpation of entire chest wall Resp: COMMON NORMALS: normal respiratory effort, No retractions, No use of accessory muscles, clear to auscultation bilaterally and percussion normal EFFORT & INSPECTION: Yes able to speak in complete sentences AUSCULTATION: clear to auscultation bilaterally PERCUSSION: percussion normal Cardio: COMMON NORMALS: no JVD, S1 normal heart sound present, S2 normal heart sound present and Peripheral pulses 2+ throughout RATE: tachycardic RHYTHM: abnormal rhythm (a fib rvr rate 125) irregularly irregular HEART SOUNDS: S1 normal heart sound present and S2 normal heart sound present PERIPHERAL PULSES: Peripheral pulses 2+ throughout GI: COMMON NORMALS: Normal to inspection, nondistended, normoactive bowel sounds present, Soft to palpation, non-tender and no masses INSPECTION: Yes normal to inspection PALPATION: Yes Soft to palpation : COMMON NORMALS: Yes no CVA tenderness BLADDER/KIDNEY EXAM: Yes no CVA tenderness Back/Pelvis: COMMON NORMALS: no CVA tenderness, thoracic and lumbar spine normal to inspection, no thoracic nor lumbar tenderness and thoraco-lumbar ROM normal Extremity: COMMON NORMALS: normal to inspection, full ROM, capillary refill normal, no joint enlargement and no pedal edema GENERAL: Yes normal exam except as noted Neuro: COMMON NORMALS: patient oriented x3, CN's II-XII intact bilaterally, moves all extremities, no focal motor deficits, no sensory deficits noted and gait normal SENSORIUM/ORIENTATION: Yes alert, Yes oriented to person, Yes oriented to place and Yes oriented to time MENINGEAL SIGNS: Yes no meningeal signs Psych: COMMON NORMALS: mental status grossly normal, Normal thought process present, cooperative, normal affect and speech normal APPEARANCE: Yes well kempt ATTITUDE: Yes calm SPEECH: Yes normal speech THOUGHT PROCESS: Normal thought process present Skin: COMMON NORMALS: no rashes or lesions noted GENERAL SKIN EXAM: no rashes or lesions noted Course Vital Signs: Vital signs: Vital Signs Temperature 98 F 03/09/21 13:41 Pulse Rate 104 H 03/09/21 14:57 Respiratory Rate 16 03/09/21 14:57 Blood Pressure 117/74 03/09/21 14:57 Pulse Oximetry 97 03/09/21 14:57 MDM - Arrhythmia/Palpitations MDM Narrative: Medical decision making narrative: The patient came to the ER complaining of palpitations and left-sided chest pain. He arrived from anesthesia appointment and he was sent to the ER because EKG showed A. fib with RVR rate in the upper 120s. He arrives in the same condition and takes sotalol for his A. fib. He has been off his Plavix and Xarelto related to a procedure on 8 but tumor in his bladder that he is about to undergo. He was given aspirin, and Cardizem with improvement of his heart rate some and started on a drip. Discussed with Dr. Patel who accepts for observation to [facility]. Lab Data: Labs: Lab Results 03/09/21 03/09/21 03/09/21 Range/Units 14:20 14:20 14:20 WBC 13.2 H (4.0-10.0) 10^3/ uL RBC 3.86 L (4.1-5.3) 10^6/u L Hgb 10.8 L (11.7-16.6) g/dL Hct 34.2 L (42.0-52.0) % MCV 88.6 (80-94) fL MCH 28.0 (28.0-34.0) pg MCHC 31.6 (30.0-36.0) g/dL RDW 15.4 H (12.1-15.1) % Plt Count 472 H (130-400) 10^3/c mm MPV 9.1 (7.4-10.4) fL Neut % (Auto) 65.1 % Lymph % (Auto) 22.4 % [place] % (Auto) 8.9 % Eos % (Auto) 1.9 % Baso % (Auto) 0.8 % Neut # (Auto) 8.59 H (1.8-7.7) 10^3/u L Lymph # (Auto) 3.0 (0.8-4.8) 10^3/u L [place] # (Auto) 1.2 H (0.2-0.9) 10^3/u L Eos # (Auto) 0.3 (0.0-0.8) 10^3/u L Baso # (Auto) 0.1 (0.0-0.1) 10^3/u L Nucleated RBC % (a uto) 0 % Nucleated RBCs # 0.0 /100WBC Sodium 134 L (136-145) mmol/L Potassium 4.2 (3.5-5.1) mmol/L Chloride 98 (98-107) mmol/L Carbon Dioxide 23 (22-29) mmol/L Anion Gap 17.2 (5-19) BUN 18 (8-23) mg/dL Creatinine 1.3 H (0.7-1.2) mg/dL GFR Calculation Not Reportable Glucose 305 H (65-115) mg/dL Calculated Osmolal ity 291 (285-295) mOsm/k g Lactate 2.2 (0.5-2.2) mmol/L Calcium 9.8 (8.5-10.5) mg/dL Total Bilirubin 0.2 (0.15-1.2) mg/dL AST 11 (0-40) U/L ALT 11 (0-41) U/L Alkaline Phosphata se 83 (40-130) IU/L Troponin T Baselin e (0-15) ng/L NT-Pro-B Natriuret Pep 2860 H (0-125) pg/mL Total Protein 6.6 (6.6-8.7) g/dL Albumin 3.8 (3.5-5.2) g/dL Globulin 2.8 (1.3-4.6) g/dL TSH 2.26 (0.27-4.20) uIU/ mL Urine Color (Yellow) Urine Appearance (CLEAR) Urine pH (5-7) Ur Specific Gravit y (1.005-1.030) Urine Protein (Negative) Urine Glucose (UA) (Normal) Urine Ketones (Negative) Urine Blood (Negative) Urine Nitrate (Negative) Urine Bilirubin (Negative) Urine Urobilinogen (Negative) mg/dL Ur Leukocyte Gabby ase (Negative) Urine RBC (0-2) /hpf Urine WBC (0-5) /hpf Ur Squamous Epith Cells (0-5) /hpf Amorphous Sediment Urine Bacteria (NONE) /hpf 03/09/21 03/09/21 Range/Units 14:20 14:27 WBC (4.0-10.0) 10^3/ uL RBC (4.1-5.3) 10^6/u L Hgb (11.7-16.6) g/dL Hct (42.0-52.0) % MCV (80-94) fL MCH (28.0-34.0) pg MCHC (30.0-36.0) g/dL RDW (12.1-15.1) % Plt Count (130-400) 10^3/c mm MPV (7.4-10.4) fL Neut % (Auto) % Lymph % (Auto) % [place] % (Auto) % Eos % (Auto) % Baso % (Auto) % Neut # (Auto) (1.8-7.7) 10^3/u L Lymph # (Auto) (0.8-4.8) 10^3/u L [place] # (Auto) (0.2-0.9) 10^3/u L Eos # (Auto) (0.0-0.8) 10^3/u L Baso # (Auto) (0.0-0.1) 10^3/u L Nucleated RBC % (a uto) % Nucleated RBCs # /100WBC Sodium (136-145) mmol/L Potassium (3.5-5.1) mmol/L Chloride (98-107) mmol/L Carbon Dioxide (22-29) mmol/L Anion Gap (5-19) BUN (8-23) mg/dL Creatinine (0.7-1.2) mg/dL GFR Calculation Glucose (65-115) mg/dL Calculated Osmolal ity (285-295) mOsm/k g Lactate (0.5-2.2) mmol/L Calcium (8.5-10.5) mg/dL Total Bilirubin (0.15-1.2) mg/dL AST (0-40) U/L ALT (0-41) U/L Alkaline Phosphata se (40-130) IU/L Troponin T Baselin e 31 H (0-15) ng/L NT-Pro-B Natriuret Pep (0-125) pg/mL Total Protein (6.6-8.7) g/dL Albumin (3.5-5.2) g/dL Globulin (1.3-4.6) g/dL TSH (0.27-4.20) uIU/ mL Urine Color Yellow (Yellow) Urine Appearance Hazy A (CLEAR) Urine pH 6 (5-7) Ur Specific Gravit y 1.020 (1.005-1.030) Urine Protein 3+ H (Negative) Urine Glucose (UA) Trace H (Normal) Urine Ketones Negative (Negative) Urine Blood Neg (Negative) Urine Nitrate Negative (Negative) Urine Bilirubin Neg (Negative) Urine Urobilinogen Norm (Negative) mg/dL Ur Leukocyte Gabby ase Negative (Negative) Urine RBC Rare (0-2) /hpf Urine WBC Rare (0-5) /hpf Ur Squamous Epith Cells None (0-5) /hpf Amorphous Sediment Not Reportable Urine Bacteria None (NONE) /hpf Discharge Plan Discharge Patient Disposition: Placed in Observation Clinical Impression: Atrial fibrillation with RVR Coding Level of Care Code ED [employer] Practitioner for Chg Fwd Exam Comprehensive
[2021-03-09 14:31] LABS: Basophils # 0.1 10^3/uL (0.0-0.1); Basophils % 0.8 %; Eosinophils # 0.3 10^3/uL (0.0-0.8); Eosinophils % 1.9 %; Hematocrit 34.2 % (42.0-52.0); Hemoglobin 10.8 g/dL (11.7-16.6); Lymphocytes % 22.4 %; Mean Corpuscular HGB Conc 31.6 g/dL (30.0-36.0); Mean Corpuscular Volume 88.6 fL (80-94); Mean Platelet Volume 9.1 fL (7.4-10.4); Monocytes # 1.2 10^3/uL (0.2-0.9); Monocytes % 8.9 %; Neutrophils # 8.59 10^3/uL (1.8-7.7); Neutrophils % 65.1 %; Nucleated Red Blood Cells % 0 %; Platelet Count 472 10^3/cmm (130-400); Red Blood Count 3.86 10^6/uL (4.1-5.3); Red Cell Distribution Width 15.4 % (12.1-15.1); White Blood Count 13.2 10^3/uL (4.0-10.0)
[2021-03-09 14:39] LABS: Bilirubin Urine Neg (Negative); Blood Urine Neg (Negative); Glucose Urine UA Trace (Normal); Ketones Urine Negative (Negative); Nitrate Urine Negative (Negative); Protein Urine 3+ (Negative); Urine Appearance Hazy (CLEAR); Urine Color Yellow (Yellow); pH Urine 6 (5-7)
[2021-03-09 14:40] LABS: Add Urine Microscopic? YES; Leukocyte Esterase Urine Negative (Negative); Urobilinogen Urine Norm (Negative)
[2021-03-09 14:45] LABS: RBC Urine RARE /hpf (0-2); WBC Urine RARE /hpf (0-5)
[2021-03-09] MEDS: aspirin 81 mg Chew Tablet 324 MG PO (14:47)
[2021-03-09 14:53] LABS: Lactate (Lactic Acid level) 2.2 mmol/L (0.5-2.2)
[2021-03-09 14:57] VITALS: BP 117/74; PULSE 104; RESP 16; O2SAT 97
[2021-03-09 15:02] LABS: Troponin(5th) Baseline 31 ng/L (0-15)
[2021-03-09 15:13] LABS: Alanine Aminotransferase 11 U/L (0-41); Albumin Level 3.8 g/dL (3.5-5.2); Alkaline Phosphatase 83 IU/L (40-130); Anion Gap 17.2 (5-19); Aspartate Amino Transferase 11 U/L (0-40); Blood Urea Nitrogen 18 mg/dL (8-23); Calcium 9.8 mg/dL (8.5-10.5); Carbon Dioxide 23 mmol/L (22-29); Chloride 98 mmol/L (98-107); Globulin 2.8 g/dL (1.3-4.6); Glucose 305 mg/dL (65-115); NT Pro B Type Natriuretic Pept 2860 pg/mL (0-125); Osmolality Calculated 291 mOsm/kg (285-295); Potassium 4.2 mmol/L (3.5-5.1); Sodium 134 mmol/L (136-145); Thyroid Stimulating Hormone 2.26 uIU/mL (0.27-4.20); Total Bilirubin 0.2 mg/dL (0.15-1.2); Total Protein 6.6 g/dL (6.6-8.7)
--- NOTE | 2021-03-09 15:38 | ECG_ITS ---
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 Measurements Intervals [place] Rate: 102 P: [place]: QRS: -32 QRSD: 105 T: 93 QT: 306 QTc: 399 Interpretive Statements ATRIAL FIBRILLATION WITH RAPID VENTRICULAR RESPONSE INFERIOR MYOCARDIAL INFARCTION [40+ ms Q WAVE AND/OR ST/T ABNORMALITY IN II/aVF], PROBABLY OLD ST DEPRESSION, CONSIDER SUBENDOCARDIAL INJURY [0.1+ mV ST DEPRESSION] Compared to ECG 03/09/2021 14:00:55 No significant changes Electronically Signed On 03-10-2021 14:26:11 CDT by Inge Dacosta M.D. [id number]
--- NOTE | 2021-03-09 16:05 | PC.PHAR ---
PT STATES HIS TAKES CARE OF HIS MEDICATIONS-PTS STATES THE PTS PLAVIX LAST FILLED ON 12/30/20 90D/S IS ON HOLD AND XARELTO 20MG LAST FILLED 10/04/20 90D/S IS ON HOLD STATES HE IS HAVING SURGERY ON Saturday03/13/21-PTS STATES THE PT HAD A BUILD UP OF THE XARELTO AND THATS WHY IT HASNT BEEN FILLED IN A WHILE
[2021-03-09 16:57] LABS: Troponin 5 2HR 30.71 ng/L (0-15); Troponin 5 2HR Delta -0.29 ABS# (0-10)
--- NOTE | 2021-03-09 17:05 | PM.HP ---
Providers/Chief Complaint Admitting Physician: Jason Patel MD Primary Care Provider: Bree Perkins MD Chief Complaint: Chest pain, AFIB History of Present Illness Ashvin Hickey is a 75 year old male with past medical history of coronary artery disease status post (distal and proximal RCA , 10/06) PAD S/P femoral-popliteal bypass surgery, status post abdominal aortic aneurysm repair, History of carotid endarterectomy, Afib on Xarelto, COPD (chronic obstructive pulmonary disease), HTN, diabetes. Was here today for preop clearance.He went to an outpatient anesthesia appointment related to a bladder cancer that he has scheduled surgery on coming Saturday and they did an EKG and noted him to be in A. fib RVR. He was sent to the ER, upon arrival in the ER he was worked up for above complaint.Patient did report that he had left-sided chest pain along with some sweating this morning, he had similar chest pain in the past also. Troponin trend; failed to show any significant delta. X-ray chest showed bilateral interstitial infiltrate. Patient was started on Cardizem drip, in the ER, he also received aspirin 325 mg po in the ER. Review of Systems Const: Denies: fever(s), chills, body aches, change in appetite or diaphoresis Card: Denies: edema, swelling of feet/ankles, orthopnea or leg pain with exertion Resp: Denies: productive cough, wheezing or pain on inspiration GI: Denies: abdominal pain, nausea, vomiting, diarrhea or constipation : Denies: flank pain or difficulty urinating Musc: Denies: back pain, extremity pain or extremity swelling Neuro: Denies: headache(s), difficulty walking or confusion Medications/Allergies Home Medications Medication Instructions Recorded Confirmed Last Taken Type ferrous sulfate 325 mg (65 mg 325 mg PO QAM 02/10/20 03/09/21 03/09/21 10:30 History iron) tablet pantoprazole 40 mg tablet,delayed 40 mg PO BID 07/05/20 03/09/21 03/09/21 10:30 History release metformin 500 mg tablet 500 mg PO BID #180 tab 08/08/20 03/09/21 03/09/21 10:30 Rx duloxetine 20 mg capsule,delayed 20 mg PO QAM cap 11/29/20 03/09/21 03/09/21 10:30 History release sucralfate 1 gram tablet 1 g PO QID PRN tab 11/29/20 03/09/21 03/09/21 10:30 History sotalol 120 mg PO BID 12/06/20 03/09/21 03/09/21 10:30 History amlodipine 10 mg tablet 10 mg PO QAM tab 12/23/20 03/09/21 03/09/21 10:30 History chlorthalidone 25 mg tablet 25 mg PO QAM 02/09/21 03/09/21 03/09/21 10:30 History insulin aspart U-100 100 unit/mL See Rx Instructions SUBCUT TID 90 02/09/21 03/09/21 03/09/21 10:30 Rx (3 mL) subcutaneous pen Days #15 ml 10 UNITS insulin glargine 100 unit/mL (3 40 unit SUBCUT QPM #15 ml 02/09/21 03/09/21 03/08/21 Rx mL) subcutaneous pen rivaroxaban 20 mg tablet 20 mg PO DAILY 02/09/21 03/09/21 03/06/21 History clopidogrel 75 mg PO DAILY 03/09/21 03/09/21 03/06/21 History hydralazine 50 mg PO TID 03/09/21 03/09/21 03/09/21 10:30 History losartan 100 mg PO QAM 03/09/21 03/09/21 03/09/21 10:30 History simvastatin 20 mg PO QPM 03/09/21 03/09/21 03/08/21 History tizanidine 4 mg PO Q8H PRN 03/09/21 03/09/21 03/08/21 History tramadol 50 mg PO QID PRN 03/09/21 03/09/21 Unknown History Allergies Allergy/AdvReac Type Severity Reaction Status Date / Time No Known Allergies Allergy Verified 03/09/21 16:08 PFSH Acute PFSH: Medical History Abdominal aortic aneurysm (AAA) Afib Anticoagulation adequate with anticoagulant therapy Bladder cancer Papillary lesion appears well differentiated diagnosed 11/29/2020 Carotid stenosis COPD (chronic obstructive pulmonary disease) Coronary artery disease Diabetes mellitus Diabetic neuropathy Erectile dysfunction HTN (hypertension), benign Hypertriglyceridemia Peripheral arterial disease Proteinuria Tobacco abuse Surgical History H/O heart artery stent History of abdominal aortic aneurysm (AAA) repair History of carotid endarterectomy Hx of appendectomy Previous back surgery S/P femoral-popliteal bypass surgery S/P right coronary artery (RCA) stent placement hx of Distal RCA and Prox RCA Social History Smoking and tobacco status: current every day smoker cigarettes Packs smoked per day: 1 Household members: spouse Marital status: service: Yes branch: [employer] Current occupational status: retired Vitals/I&O/Wt Last Vital Signs Temp 98 F 03/09/21 13:41 Pulse 104 H 03/09/21 14:57 Resp 16 03/09/21 14:57 BP 117/74 03/09/21 14:57 Pulse Ox 97 03/09/21 14:57 Weight last 48 hrs Weight 77.111 kg Physical Exam Const: COMMON NORMALS: patient oriented x3 HENMT: COMMON NORMALS: normocephalic and atraumatic HEAD & SCALP: normocephalic and atraumatic Chest: CHEST: Yes Symmetrical chest wall rise Resp: COMMON NORMALS: clear to auscultation bilaterally AUSCULTATION: clear to auscultation bilaterally Cardio: OTHER: Irregularly irregular rhythm, S1-S2 variable intensity GI: COMMON NORMALS: Soft to palpation, non-tender, No hepatosplenomegaly present and no masses AUSCULTATION: Yes normoactive bowel sounds RECTAL EXAM: Yes deferred Extremity: COMMON NORMALS: no clubbing, cyanosis or edema and no pedal edema Neuro: COMMON NORMALS: patient oriented x3 Data : 03/10/21 03:47 03/10/21 03:47 A&P Assessment and plan (1) Atrial fibrillation with RVR: Transient chest pain is likely secondary to A. fib with RVR. Continue on Cardizem drip. Continue sotalol 125 mg p.o. twice daily. Telemetry monitoring 2D echo TSH Status: Acute (2) Coronary artery disease: History of coronary artery disease status post stent: Currently Xarelto and Plavix on hold for urological procedure. Status: Acute Qualifiers: Associated angina: with unspecified angina Coronary Disease-Associated Artery/Lesion type: [place] artery [place] vs. transplanted heart: [place] heart Qualified Code(s): I25.119 - Atherosclerotic heart disease of [place] coronary artery with unspecified angina pectoris (3) Bladder cancer: Status: Acute Qualifiers: Bladder location: posterior wall Qualified Code(s): 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 (4) Diabetes mellitus: Status: Acute Qualifiers: Diabetes mellitus complication status: with hyperglycemia Diabetes mellitus nursing home insulin use: with bed bug exterminator use Diabetes mellitus type: type 2 Qualified Code(s): E11.65 - Type 2 diabetes mellitus with hyperglycemia; Z79.4 - custodial (current) use of insulin (5) COPD (chronic obstructive pulmonary disease): Status: Acute (6) Abdominal aortic aneurysm (AAA): Status: Acute (7) S/P femoral-popliteal bypass surgery: Status: Acute (8) Peripheral arterial disease: Status: Acute (9) HTN (hypertension), benign: Status: Acute Additional A&P Information CODE STATUS: Full code DVT prophylaxis: Lovenox 40 subcu daily Attestations Medical Necessity Statement*: Patient needs to be in hospital for management of A. fib with RVR. Anticipated length of stay greater than 2 midnights. Coding Level of Care Code Acute Sheet Metal Insulator for Chg Fwd Exam Detailed Diagnoses Atrial fibrillation with RVR I48.91 Coronary artery disease I25.119 Associated angina: with unspecified angina Coronary Disease-Associated Artery/Lesion type: [place] artery [place] vs. transplanted heart: [place] heart Bladder cancer C67.4 Bladder location: posterior wall Diabetes mellitus E11.65; Z79.4 Diabetes mellitus complication status: with hyperglycemia Diabetes mellitus nursing home insulin use: with nursing home use Diabetes mellitus type: type 2 COPD (chronic obstructive pulmonary disease) J44.9 Abdominal aortic aneurysm (AAA) I71.4 S/P femoral-popliteal bypass surgery Z95.828 Peripheral arterial disease I73.9 HTN (hypertension), benign I10
[2021-03-09 19:16] VITALS: BP 129/78; PULSE 111; RESP 21; TEMP 37; O2SAT 96
--- NOTE | 2021-03-09 19:38 | ECG_ITS ---
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 Measurements Intervals [place] Rate: 70 P: 50 [place]: 187 QRS: -16 QRSD: 105 T: 134 QT: 389 QTc: 422 Interpretive Statements SINUS RHYTHM LEFT VENTRICULAR HYPERTROPHY AND ST-T CHANGE [VOLTAGE CRITERIA PLUS ST/T ABNORMALITY] INTERPRETATION BASED ON A DEFAULT AGE OF 40 YEARS Compared to ECG 03/09/2021 22:11:04 Atrial fibrillation no longer present Myocardial infarct finding no longer present ST (T wave) deviation still present Electronically Signed On 03-11-2021 7:32:13 CDT by Inge Dacosta M.D. [email or web address] [id number]
[2021-03-09 20:18] LABS: Glucose Point of Care 326 mg/dL (70-110)
[2021-03-09] MEDS: pantoprazole DR 40 mg Tablet PO (20:42)
[2021-03-09] MEDS: atorvastatin 40 mg Tablet 20 MG PO (20:42)
[2021-03-09] MEDS: insulin glargine 100 units/1 mL 40 UNIT SUBCUT (20:42)
[2021-03-09 20:51] LABS: Troponin 5 6HR 35.94 ng/L (0-15); Troponin 5 6HR Delta 4.94 ng/L (0-12)
--- NOTE | 2021-03-09 21:54 | PC.NURSE ---
Shift report received from Kala GALAN. Patient is sitting on the side of bed eating dinner. He voices no C/O of pain or needs at this time. Nurse will continue to monitor.
--- NOTE | 2021-03-09 22:05 | ECG_ITS ---
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 Measurements Intervals [place] Rate: 97 P: [place]: QRS: -27 QRSD: 103 T: 79 QT: 358 QTc: 456 Interpretive Statements ATRIAL FIBRILLATION MINIMAL VOLTAGE CRITERIA FOR LVH, CONSIDER NORMAL VARIANT [MEETS CRITERIA IN ONE OF: R(aVL), S(V1), R(V5), R(V5/V6)+S(V1)] INFERIOR MYOCARDIAL INFARCTION [40+ ms Q WAVE AND/OR ST/T ABNORMALITY IN II/aVF], PROBABLY OLD ST DEPRESSION, CONSIDER SUBENDOCARDIAL INJURY [0.1+ mV ST DEPRESSION] Compared to ECG 03/09/2021 15:24:47 No significant changes Electronically Signed On 03-11-2021 7:32:28 CDT by Inge Dacosta M.D. [id number]
[2021-03-09] MEDS: sotalol 80 mg Tablet 120 MG PO (22:28)
[2021-03-09 23:38] VITALS: BP 148/58; PULSE 70; RESP 22; O2SAT 91
--- NOTE | 2021-03-09 23:39 | PC.NURSE ---
Around 2330 patient had 5 second pause. EKG performed per protocol, vital signs stable. Notified Dr. Locke.
--- NOTE | 2021-03-10 01:30 | ECG_ITS ---
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 Measurements Intervals [place] Rate: 61 P: 63 [place]: 190 QRS: -17 QRSD: 100 T: 141 QT: 438 QTc: 442 Interpretive Statements SINUS RHYTHM INFERIOR MYOCARDIAL INFARCTION [40+ ms Q WAVE AND/OR ST/T ABNORMALITY IN II/aVF], PROBABLY OLD ST DEVIATION AND MODERATE T-WAVE ABNORMALITY, CONSIDER ANTEROLATERAL ISCHEMIA [-0.1+ mV T WAVE IN V3-V6] Compared to ECG 03/09/2021 23:29:25 Myocardial infarct finding now present T-wave abnormality now present Possible ischemia now present Left ventricular hypertrophy no longer present ST (T wave) deviation no longer present Electronically Signed On 03-10-2021 14:24:36 CDT by Inge Dacosta M.D. [id number]
[2021-03-10 03:42] VITALS: BP 139/57; PULSE 69; RESP 20; TEMP 36.7; O2SAT 96
[2021-03-10 04:07] LABS: Basophils # 0.1 10^3/uL (0.0-0.1); Eosinophils # 0.4 10^3/uL (0.0-0.8); Eosinophils % 3.2 %; Hematocrit 28.5 % (42.0-52.0); Lymphocytes # 3.1 10^3/uL (0.8-4.8); Lymphocytes % 28.2 %; Mean Corpuscular HGB Conc 31.6 g/dL (30.0-36.0); Mean Corpuscular Hemoglobin 28.4 pg (28.0-34.0); Mean Corpuscular Volume 89.9 fL (80-94); Mean Platelet Volume 9.2 fL (7.4-10.4); Monocytes # 1.2 10^3/uL (0.2-0.9); Neutrophils # 6.23 10^3/uL (1.8-7.7); Neutrophils % 56.1 %; Nucleated Red Blood Cells % 0 %; Platelet Count 400 10^3/cmm (130-400); Red Blood Count 3.17 10^6/uL (4.1-5.3); Red Cell Distribution Width 15.5 % (12.1-15.1); White Blood Count 11.1 10^3/uL (4.0-10.0)
[2021-03-10 04:27] LABS: Alanine Aminotransferase 9 U/L (0-41); Alkaline Phosphatase 68 IU/L (40-130); Anion Gap 16.8 (5-19); Aspartate Amino Transferase 14 U/L (0-40); Blood Urea Nitrogen 23 mg/dL (8-23); Calcium 8.7 mg/dL (8.5-10.5); Carbon Dioxide 23 mmol/L (22-29); Chloride 103 mmol/L (98-107); Globulin 2.7 g/dL (1.3-4.6); Glucose 191 mg/dL (65-115); Magnesium 1.8 mg/dL (1.7-2.3); Osmolality Calculated 297 mOsm/kg (285-295); Potassium 3.8 mmol/L (3.5-5.1); Sodium 139 mmol/L (136-145); Total Bilirubin 0.2 mg/dL (0.15-1.2); Total Protein 5.7 g/dL (6.6-8.7)
[2021-03-10 04:29] LABS: Slide Review Slide Review Perform
[2021-03-10] MEDS: duloxetine 20 mg Capsule PO (06:02)
[2021-03-10] MEDS: ferrous sulfate EC 325 mg Tablet PO (06:02)
[2021-03-10 06:03] VITALS: BP 134/73
[2021-03-10] MEDS: chlorthalidone 25 mg Tablet PO (06:03)
[2021-03-10] MEDS: losartan 50 mg Tablet 100 MG PO (06:03)
[2021-03-10] MEDS: amlodipine 10 mg Tablet PO (06:03)
[2021-03-10] MEDS: hyDRALAzine 50 mg Tablet PO ×2 (06:05→09:28)
[2021-03-10 06:42] LABS: Glucose Point of Care 163 mg/dL (70-110)
[2021-03-10 08:00] VITALS: BP 153/55; PULSE 71; RESP 14; TEMP 36.7; O2SAT 94
--- NOTE | 2021-03-10 08:32 | PM.MISC ---
Miscellaneous Note Purpose of Documentation: Change of UROLOGIC surgical plans for 03/13/2021 Note: Patient was admitted to the hospital since last outpatient visit with atrial fibrillation with rapid ventricular response. Has been placed on aspirin I recommended holding on his surgery scheduled for 03/13/2021 with rescheduling as able to do when safe to stop ASA. Explained to him the rationale for that and also to give him an opportunity to be optimized from a cardiac perspective.
[2021-03-10] MEDS: pantoprazole DR 40 mg Tablet PO (09:28)
[2021-03-10] MEDS: sotalol 80 mg Tablet 120 MG PO (09:29)
[2021-03-10 09:30] VITALS: BP 132/73
[2021-03-10 11:08] LABS: Glucose Point of Care 317 mg/dL (70-110)
--- NOTE | 2021-03-10 11:43 | PC.CHAP ---
Pastoral Care Encounter/Spiritual Assessment Type of Contact [] Declined quality technician visit [] Patient/Family/Request visit [] Outpatient visit [] Follow-up visit [] Physician referral [] Code/Alert xx] Routine visit [] Staff referral [] Actively dying [] Patient sleeping [] Family support [] [] Out of room [] Palliative care [] [] Receiving care in room [] Pre-surgical visit [] Trauma [] Long length of stay [] ICU visit [] Other: Relational/Emotional Strength [xx] Patient feels connected with others/family/visitors/staff [] Distress [] Loneliness/isolation [] Abandonment Spirituality of Patient [xx] Person of Jewell [] Attends Congregational of their Jewell [xx] Believes in Prayer [] Reads Bible or Amish materials [] There are Spiritual issues to be addressed Roller Printing Supervisor 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 [xx] Prayer [xx] Active listening [xx] Non-anxious presence [] Spiritual/emotional support [] Crisis/trauma care [] Spiritual counseling [] Bereavement support [] Provided bereavement packet [] Provided Bible/devotional materials [] Provided toy/stuffed animal, coloring book to patient or family member [] Provided Communion [] Anointing/[place] [] Salvation [xx] Completed spiritual assessment [] Other: Impact on Illness or Injury [] Angry [] Fearful [] Anxious [] Often cries [] Exhaustion [] Unable to work [] Unable to attend jehovah's witness [] Unable to walk/stand [] Unable to read [] Unable to drive [] Unable to eat/drink [] Unable to sleep [] Unable to be with family [] Patient intubated [] Other: Summary Patient not too talkative but wanted prayer. Time spent with patient 5 minutes
[2021-03-10 12:00] VITALS: BP 129/57; PULSE 62; RESP 14; TEMP 36.6; O2SAT 96
--- NOTE | 2021-03-10 12:43 | PM.PN ---
Vitals/I&O/Wt Last Vital Signs Temp 98.1 F 03/10/21 08:00 Pulse 71 03/10/21 08:00 Resp 14 03/10/21 08:00 BP 132/73 03/10/21 09:30 Pulse Ox 94 03/10/21 08:00 03/09/21 03/10/21 03/10/21 22:59 06:59 14:59 Intake Total 120 / 120 Output Total 200 / 200 400 / 600 620 / 620 Balance -200 / -200 -400 / -600 -500 / -500 Weight last 48 hrs Weight 77.111 kg Data : 03/10/21 03:47 03/10/21 03:47 Coding Level of Care Code Acute Bottle Capping Machine Operator for Maryg Nini
--- NOTE | 2021-03-10 15:07 | P.DS_ITS ---
Discharge Providers Date of Admission: 03/09/21 15:29 Date of Discharge: March 10, 2021 Attending Provider at Admission: Jason Patel MD Attending Provider at Discharge: Jason Patel MD Primary Care Provider: Bree Perkins MD Diagnoses at Discharge Discharge Diagnosis (1) Atrial fibrillation with RVR: Status: Resolved Permanent problem details: Patient converted to normal sinus rhythm with home dose of sotalol. (2) Coronary artery disease: Status: Acute Qualifiers: Associated angina: with unspecified angina Coronary Disease-Associated Artery/Lesion type: [place] artery [place] vs. 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: with petroleum terminal plant operator use Diabetes mellitus type: type 2 Qualified Code(s): E11.65 - Type 2 diabetes mellitus with hyperglycemia; Z79.4 - intermediate project manager (current) use of insulin (5) COPD (chronic obstructive pulmonary disease): Status: Acute (6) Abdominal aortic aneurysm (AAA): Status: Acute (7) S/P femoral-popliteal bypass surgery: Status: Acute (8) Peripheral arterial disease: Status: Acute (9) HTN (hypertension), benign: Status: Acute Reason for Visit Reason for Visit: Chest pain, AFIB Hospital Course Hospital Course Ashvin Hickey is a 75 year old male with past medical history of coronary artery disease status post (distal and proximal RCA , 10/06) PAD S/P femoral-popliteal bypass surgery, status post abdominal aortic aneurysm repair, History of carotid endarterectomy, Afib on Xarelto, COPD (chronic obstructive pulmonary disease), HTN, diabetes. Was here today for preop clearance.He went to an outpatient anesthesia appointment related to a bladder cancer that he has scheduled surgery on coming Saturday and they did an EKG and noted him to be in A. fib RVR. He was sent to the ER, upon arrival in the ER he was worked up for above complaint.Patient did report that he had left-sided chest pain along with some sweating this morning, he had similar chest pain in the past also. Troponin trend; failed to show any significant delta. X-ray chest showed bilateral interstitial infiltrate. Patient was started on Cardizem drip, in the ER, he also received aspirin 325 mg po in the ER. Patient's home sotalol dose was continued he converted back to normal sinus rhythm.Diltiazem drip was stopped. 2D echo done during the hospital stay: Showed: Normal left ventricular size and systolic function, EF 55 %. Mild left ventricular hypertrophy. Grade 2 left ventricular diastolic dysfunction.Mild hypokinesia of the basal inferior wall segment.No gross valvular abnormality.No Pericardial effusion, no intracardiac mass. Chest pain is possibly related to A. fib with RVR. Patient was also briefly seen by Dr. Corral, he recommended holding the surgery scheduled for 03/13 as the patient has received aspirin in the ER, and he will wait for optimization of the patient from cardiac perspective.Patient was offered in house cardiology consult, to have their input, family as of now wants to, follow-up with Dr. Corral and cardiology as an outpatient. His Plavix and Xarelto was on hold prior to the admission, since Saturday, Patient wants to continue to hold both in preparation for possible upcoming surgery. Patient responded well to the above medical management and was discharged in stable condition to home. Physical Exam Const: COMMON NORMALS: patient oriented x3 HENMT: COMMON NORMALS: normocephalic and atraumatic HEAD & SCALP: normocephalic and atraumatic Chest: CHEST: Yes Symmetrical chest wall rise Resp: COMMON NORMALS: clear to auscultation bilaterally AUSCULTATION: clear to auscultation bilaterally Cardio: COMMON NORMALS: regular rate, regular rhythm, S1 normal heart sound present, S2 normal heart sound present, No gallops present (Cardio) and No murmurs present (Cardio) RATE: regular rate RHYTHM: regular rhythm HEART SOUNDS: S1 normal heart sound present and S2 normal heart sound present GI: COMMON NORMALS: Soft to palpation, non-tender, No hepatosplenomegaly present and no masses AUSCULTATION: Yes normoactive bowel sounds PALPATION: Yes Soft to palpation and Yes No hepatosplenomegaly present RECTAL EXAM: Yes deferred Extremity: COMMON NORMALS: no clubbing, cyanosis or edema and no pedal edema Neuro: COMMON NORMALS: patient oriented x3 Discharge Data Data Completed and Pending: Completed Studies During Hospitalization Category Date Time Status XR chest 1V kristal ble 24068 Urgent Exams 03/09/21 13:35 Completed CV echo complete* [id number] Routine Ultrasound 03/10/21 17:09 Completed Pending at discharge Category Date Time Status Complete Blood Co unt w/Auto AM LABS Lab 03/11/21 04:00 Ordered Complete Blood Co unt w/Auto AM LABS Lab 03/12/21 04:00 Ordered Comprehensive Met abolic Panel AM LA BS Lab 03/11/21 04:00 Ordered Comprehensive Met abolic Panel AM LA BS Lab 03/12/21 04:00 Ordered Magnesium AM LABS Lab 03/11/21 04:00 Ordered Magnesium AM LABS Lab 03/12/21 04:00 Ordered Labs from last 24 hours 03/10/21 03/10/21 03/10/21 11:03 06:37 03:47 WBC RBC Hgb Hct MCV MCH MCHC RDW Plt Count MPV Neut % (Auto) Lymph % (Auto) [place] % (Auto) Eos % (Auto) Baso % (Auto) Neut # (Auto) Lymph # (Auto) [place] # (Auto) Eos # (Auto) Baso # (Auto) Nucleated RBC % (a uto) Nucleated RBCs # Sodium 139 Potassium 3.8 Chloride 103 Carbon Dioxide 23 Anion Gap 16.8 BUN 23 Creatinine 1.2 GFR Calculation Not Reportable Glucose 191 H POC Glucose 317 H 163 H Calculated Osmolal ity 297 H Calcium 8.7 Magnesium 1.8 Total Bilirubin 0.2 AST 14 ALT 9 Alkaline Phosphata se 68 Troponin T 120 Min [place] Delta Troponin T Troponin T Hi Sens 6Hr Troponin T Hi Sens 6Hr Delta NT-Pro-B Natriuret Pep Total Protein 5.7 L Albumin 3.0 L Globulin 2.7 TSH 03/10/21 03/09/21 03/09/21 03:47 20:27 20:14 WBC 11.1 H RBC 3.17 L Hgb 9.0 L Hct 28.5 L MCV 89.9 MCH 28.4 MCHC 31.6 RDW 15.5 H Plt Count 400 MPV 9.2 Neut % (Auto) 56.1 Lymph % (Auto) 28.2 [place] % (Auto) 11.0 Eos % (Auto) 3.2 Baso % (Auto) 1.0 Neut # (Auto) 6.23 Lymph # (Auto) 3.1 [place] # (Auto) 1.2 H Eos # (Auto) 0.4 Baso # (Auto) 0.1 Nucleated RBC % (a uto) 0 Nucleated RBCs # 0.0 Sodium Potassium Chloride Carbon Dioxide Anion Gap BUN Creatinine GFR Calculation Glucose POC Glucose 326 H Calculated Osmolal ity Calcium Magnesium Total Bilirubin AST ALT Alkaline Phosphata se Troponin T 120 Min [place] Delta Troponin T Troponin T Hi Sens 6Hr 35.94 H Troponin T Hi Sens 6Hr Delta 4.94 NT-Pro-B Natriuret Pep Total Protein Albumin Globulin TSH 03/09/21 03/09/21 16:25 14:20 WBC RBC Hgb Hct MCV MCH MCHC RDW Plt Count MPV Neut % (Auto) Lymph % (Auto) [place] % (Auto) Eos % (Auto) Baso % (Auto) Neut # (Auto) Lymph # (Auto) [place] # (Auto) Eos # (Auto) Baso # (Auto) Nucleated RBC % (a uto) Nucleated RBCs # Sodium 134 L Potassium 4.2 Chloride 98 Carbon Dioxide 23 Anion Gap 17.2 BUN 18 Creatinine 1.3 H GFR Calculation Not Reportable Glucose 305 H POC Glucose Calculated Osmolal ity 291 Calcium 9.8 Magnesium Total Bilirubin 0.2 AST 11 ALT 11 Alkaline Phosphata se 83 Troponin T 120 Min [place] 30.71 H Delta Troponin T -0.29 L Troponin T Hi Sens 6Hr Troponin T Hi Sens 6Hr Delta NT-Pro-B Natriuret Pep 2860 H Total Protein 6.6 Albumin 3.8 Globulin 2.8 TSH 2.26 Vitals: Last Vital Signs Temp 98.1 F 03/10/21 08:00 Pulse 71 03/10/21 08:00 Resp 14 03/10/21 08:00 BP 132/73 03/10/21 09:30 Pulse Ox 94 03/10/21 08:00 Discharge Plan Discharge Patient Disposition: Home Condition: Stable Prescriptions: Continued duloxetine [Cymbalta] 20 mg capsule,delayed release(DR/EC) 20 mg PO QAM RF: 0 sucralfate 1 gram tablet 1 g PO QID PRN (Reason: UNKNOWN) RF: 0 amlodipine 10 mg tablet 10 mg PO QAM RF: 0 ferrous sulfate 325 mg (65 mg iron) tablet 325 mg PO QAM RF: 0 pantoprazole 40 mg tablet,delayed release (DR/EC) 40 mg PO BID RF: 0 chlorthalidone 25 mg tablet 25 mg PO QAM RF: 0 insulin aspart U-100 [Novolog Flexpen U-100 Insulin] 100 unit/mL (3 mL) insulin pen See Rx Instructions SUBCUT TID 90 Days Qty: 15 RF: 2 Lantus Solostar U-100 Insulin 100 unit/mL (3 mL) insulin pen 40 unit SUBCUT QPM Qty: 15 RF: 1 metformin 500 mg tablet 500 mg PO BID Qty: 180 RF: 0 Hold Instructions: Resume on 10/02/20. hydralazine 50 mg tablet 50 mg PO TID RF: 0 tizanidine 4 mg tablet 4 mg PO Q8H PRN (Reason: Muscle Spasm) RF: 0 tramadol 50 mg tablet 50 mg PO QID PRN (Reason: Pain) RF: 0 simvastatin 20 mg tablet 20 mg PO QPM RF: 0 losartan 100 mg tablet 100 mg PO QAM RF: 0 sotalol 80 mg tablet 120 mg PO BID RF: 0 Held Xarelto 20 mg tablet 20 mg PO DAILY RF: 0 Hold Instructions: Resume on 03/16/21. clopidogrel 75 mg tablet 75 mg PO DAILY RF: 0 Hold Instructions: Resume on 03/16/21. Discharge Orders: Discharge Order (Routine); Ordered 03/10/21 Ordered By: Jason Patel Referrals: Bree Perkins MD [Primary Care Provider] - 03/17/21 10:00 am (You have a hospital followup with Dr. Perkins at [facility] on March 17 at 10:00am) Discharge Diet: Diabetic Discharge Activity: Resume usual activity Patient Instructions: Atrial Fibrillation (DC), Chest Pain Stoplight, Opioid Safety Discharge Attestations Time Spent in Discharge Care*: less than 30 min Specific Discharge Activities: educating patient, educating and/or supporting family/caregiver, discussing with pcp/other providers, discussing with case finishing machine adjuster/social workers/dc planners, documenting/other paperwork and evaluating patient/reviewing data Status at Discharge: Cognitive status at discharge: cognitively intact , Behavioral status at discharge: cooperative , Functional status at discharge: independent ambulation Overall status at discharge: patient is back to baseline Quality Metrics Clinical Quality Measures During this hospital stay, did patient experience: None Coding Level of Care Code Acute Chg FW DC note Exam Detailed Diagnoses Atrial fibrillation with RVR I48.91 Coronary artery disease I25.119 Associated angina: with unspecified angina Coronary Disease-Associated Artery/Lesion type: [place] artery [place] vs. 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
[2021-03-10 15:13] VITALS: BP 148/57; PULSE 64; RESP 14; TEMP 36.6; O2SAT 96
--- NOTE | 2021-03-10 17:09 | USCV_ITS ---
Ashvin Hickey Age: 75 Gender: M : 1945 Exam Date: 03/10/2021 08:01 Ordering Phys: Jason Patel MD Technologist: Nikole Domingo [place] [facility] [place]ication: CHEST PAIN BP: 139 / 57 HR: 66 Rhythm: Sinus Technical Quality: Adequate MEASUREMENTS (Male / Female) Normal Values 2D ECHO LV Diastolic Diameter PLAX 3.6 cm 4.2 - 5.9 / 3.9 - 5.3 cm LV Systolic Diameter PLAX 2.4 cm LV Chamber Size 4.7 cm IVS Diastolic Thickness 2.1 cm 0.6 - 1.0 / 0.6 - 0.9 cm IVS Systolic Thickness 2.0 cm LVPW Diastolic Thickness 1.8 cm 0.6 - 1.0 / 0.6 - 0.9 cm LVPW Systolic Thickness 2.1 cm RV Chamber Size 3.0 cm LVOT Diameter 2.1 cm LV Ejection Fraction 2D Teich 63.6 % LV Ejection Fraction MOD 2C 3.5 % LV Ejection Fraction 2C AL 7.2 % LA Diameter 3.5 cm LA Width 4.0 cm LA Height 4.3 cm RA Width 3.0 cm RA Height 3.2 cm Aorta at Sinotubular Diameter 3.0 cm M-MODE LV Diastolic Diameter MM 5.0 cm 4.2 - 5.9 / 3.9 - 5.3 cm LV Systolic Diameter MM 3.1 cm LV Ejection Fraction MM Teich 68.8 % IVS Diastolic Thickness MM 1.2 cm 0.6 - 1.0 / 0.6 - 0.9 cm IVS Systolic Thickness MM 1.8 cm LVPW Diastolic Thickness MM 1.3 cm 0.6 - 1.0 / 0.6 - 0.9 cm LVPW Systolic Thickness MM 2.1 cm Aortic Annulus Diameter 3.6 cm LA Ao Ratio MM 1.1 MV E Point Septal Separation 0.8 cm DOPPLER AV Peak Velocity 153.0 cm/s LVOT Peak Velocity 123.0 cm/s AV Area Cont Eq vti 3.2 cm squared AV Area Cont Eq pk 2.7 cm squared MV Area PHT 3.5 cm squared Mitral E to A Ratio 1.1 MV E' Velocity 62.5 cm/s Mitral E to MV E' Ratio 16.8 Mitral E to LV E' Lateral Ratio 13.3 Mitral E to LV E' Septal Ratio 23.2 TR Peak Velocity 114.2 cm/s TR Peak Gradient 5.2 mmHg TR Mean Velocity 79.3 cm/s TR Mean Gradient 2.8 mmHg TR Velocity Time Integral 27.0 cm TV Peak E Velocity 61.0 cm/s Right Atrial Pressure 3.0 mmHg Pulmonary Artery Systolic Pressu 8.2 mmHg PV Peak Velocity 91.0 cm/s RV Acceleration Time 0.2 s RV Ejection Time 0.3 s RV AcT/ET 0.4 FINDINGS Left Ventricle Normal left ventricular size and systolic function, EF 55 %. Mild left ventricular hypertrophy. Mild hypokinesia of the basal inferior wall segment.Grade II/IV diastolic dysfunction, moderately elevated filling pressures. Right Ventricle The right ventricle is normal in size and function. Right Atrium The right atrium is normal in size. Left Atrium Mildly increased left atrial size. Mitral Valve No gross abnormalities noted Aortic Valve Thickened aortic valve. Tricuspid Valve No gross abnormalities noted Pulmonic Valve Pulmonic valve not well visualized. Pericardium Normal pericardium without effusion. Aorta Normal ascending aorta dimension. CONCLUSIONS Normal left ventricular size and systolic function, EF 55 %. Mild left ventricular hypertrophy. Grade 2 left ventricular diastolic dysfunction Wall motion abnormality as mentioned above Thickened aortic valve. No significant stenotic or regurgitant lesions There is no pericardial effusion. There are no intracardiac masses. Compared to the study from 02/08/2018, there may not be a significant change Dr Gloria Lucas MD [facility] (Electronically Signed) Final Date: 10 March 2021 10:59 S
== END 2021-03-10 15:40 | disposition home or self-care (01) | DRG 310 ==
LOC: ER 15:33 → CSU 16:18
PROVIDERS: Admitting Provider Internal Medicine; Emergency Provider Family Medicine; PCP Family Medicine; Visit Provider Internal Medicine
DX: I48.20 Chronic atrial fibrillation, unspecified (principal); I25.119 Atherosclerotic heart disease of native coronary artery with unspecified angina pectoris; C67.4 Malignant neoplasm of posterior wall of bladder; E11.51 Type 2 diabetes mellitus with diabetic peripheral angiopathy without gangrene; E11.65 Type 2 diabetes mellitus with hyperglycemia; E11.40 Type 2 diabetes mellitus with diabetic neuropathy, unspecified; I71.4 Abdominal aortic aneurysm, without rupture; J44.9 Chronic obstructive pulmonary disease, unspecified; I10 Essential (primary) hypertension; F17.210 Nicotine dependence, cigarettes, uncomplicated; E78.1 Pure hyperglyceridemia; Z79.4 Long term (current) use of insulin; Z95.828 Presence of other vascular implants and grafts; Z79.02 Long term (current) use of antithrombotics/antiplatelets; Z79.01 Long term (current) use of anticoagulants; Z95.5 Presence of coronary angioplasty implant and graft
CPT/HCPCS: 36415; 36416; 71045; 80053; 81001; 82962; 83605; 83735; 83880; 84443; 84484; 85025; 87635; 93005; 93306; 96365; 96372; 96375; 99285; J1815 ×2; J3490

== ENCOUNTER 2021-03-16 13:40 | Observation (INO) | payer MEDICARE, BC, SELFPAY ==
--- NOTE | 2021-03-13 15:33 | PC.RESP ---
SMOKING CESSATION AND PULMONARY REHAB INFORMATION SENT TO PATIENT.
[2021-03-15 08:50] VITALS: BMI 25.8
[2021-03-16] VITALS (9 sets, daily range): BP systolic 129–180; BP diastolic 52–70; PULSE 52–64; RESP 17–20; TEMP 36.2–36.8; O2SAT 92–100
--- NOTE | 2021-03-16 11:03 | ECG_ITS ---
[facility] Test Date: 2021-03-16 Pat Name: Ashvin Hickey Department: Room: Gender: Male Online Editor: TALHA : 1945 Requested By: Faisal Briceno Order Number: [id number] Arvind MD: Art Mays M.D. Measurements Intervals [place] Rate: 58 P: 38 [place]: 191 QRS: -28 QRSD: 100 T: 124 QT: 431 QTc: 424 Interpretive Statements SINUS BRADYCARDIA LEFT VENTRICULAR HYPERTROPHY AND ST-T CHANGE [VOLTAGE CRITERIA PLUS ST/T ABNORMALITY] INFERIOR MYOCARDIAL INFARCTION [40+ ms Q WAVE AND/OR ST/T ABNORMALITY IN II/aVF], OF INDETERMINATE AGE Compared to ECG 03/10/2021 02:26:01 Left ventricular hypertrophy now present ST (T wave) deviation now present Sinus rhythm no longer present T-wave abnormality no longer present Possible ischemia no longer present Myocardial infarct finding still present Electronically Signed On 03-16-2021 20:38:03 CDT by Art Mays M.D. [id number]
--- NOTE | 2021-03-16 11:34 | ANES.PREANE2 ---
Pre-Anesthetic Assessment Pre-Anesthetic Assessment: Height/Weight: Height 1.73 m Weight 77.111 kg Temp Pulse Resp BP Pulse Ox 97.1 F L 64 18 180/62 99 03/16/21 10:49 03/16/21 10:49 03/16/21 10:49 03/16/21 10:49 03/16/21 10:49 Preop Diagnosis: Recurrent bladder cancer Proposed Procedure: Operation Date: 03/16/21 12:00 Proposed Procedures p Cystoscopy 85114 c67.9(Not Applicable) - Alli Corral MD s Transurethral Resection Bladder Tumor(Not Applicable) - Alli Corral MD Was Beta Alissa taken within 24 hours: Yes Was Clonidine taken within 24 hours: N/A Last intake: Intake Last Liquid Date 03/16/21 Last Liquid Time 07:30 Last Solid Date 03/15/21 Last Solid Time 19:00 Social: Social History: Tobacco and No alcohol Exam: Pre-Anes Outpt Exam: alert, oriented x 3 and regular rate & rhythm Additional Exam Findings (including area of procedure): EKG improved rate Airway: Submandibular: WNL Cervical ROM: WNL MP: 2 Dentition: Partials Pulmonary: Pulmonary: COPD CV/HEM: CV/HEM: Afib, CAD (stents) and PVD Comments: stable angina GI: GI: GERD Metabolic: Metabolic: DM Anesthetic Plan: ASA status: 3 Anesthesia: General Risk of > 500 ml blood loss (7ml/kg in children): No PFSH Anesthesia PFSH: Medical History Abdominal aortic aneurysm (AAA) Afib Anticoagulation adequate with anticoagulant therapy Bladder cancer Papillary lesion appears well differentiated diagnosed 11/29/2020 Carotid stenosis COPD (chronic obstructive pulmonary disease) Coronary artery disease Diabetes mellitus Diabetic neuropathy Erectile dysfunction HTN (hypertension), benign Hypertriglyceridemia Peripheral arterial disease Proteinuria Tobacco abuse Surgical History H/O heart artery stent History of abdominal aortic aneurysm (AAA) repair History of carotid endarterectomy Hx of appendectomy Previous back surgery S/P femoral-popliteal bypass surgery S/P right coronary artery (RCA) stent placement hx of Distal RCA and Prox RCA Social History Smoking and tobacco status: current every day smoker cigarettes Packs smoked per day: 1 Household members: spouse Marital status: service: Yes branch: [employer] Current occupational status: retired Data Anesthesia Cardiac Studies: No Data to Display
[2021-03-16 11:37] LABS: Glucose Point of Care 148 mg/dL (70-110)
[2021-03-16] MEDS: sodium chloride 0.9% 1,000 ML 30 ML IV ×2 (11:43→15:28)
--- NOTE | 2021-03-16 12:13 | W.PM.OPSUD ---
Surgery/Procedure H&P Update DATE OF PROCEDURE: March 16, 2021 DATE H&P PERFORMED: 03/07/21 H&P UPDATE INFORMATION: I have reviewed H&P completed within last 30 days, Changes to prior documentation as noted here and H&P is in [facility] on date indicated CHANGES TO PREVIOUS DOCUMENTATION: He was hospitalized for transient atrial fibrillation that resolved back to sinus. He has been off of his blood thinners. No contraindications to proceeding with TURBT. PREOP DIAGNOSIS: Recurrent bladder cancer PLANNED PROCEDURE: Operation Date: 03/16/21 12:00 Proposed Procedures p Cystoscopy 29495 c67.9(Not Applicable) - Alli Corral MD s Transurethral Resection Bladder Tumor(Not Applicable) - Alli Corral MD
[2021-03-16] MEDS: levofloxacin-dextrose 5 % 500 MG/100 ML PREMIX 100 MG IV (12:18)
[2021-03-16] MEDS: lidocaine 2% Urojet 20 mL (12:48)
--- NOTE | 2021-03-16 13:31 | P.OP_ITS ---
Operative Report Date of procedure: March 16, 2021 Pre-op Diagnosis: Recurrent TCCA bladder neck Post-op diagnosis: same Procedure Done: 1. Transurethral resection/fulguration bladder tumor medium Pathology: Sampled multiple areas on the bladder neck. The remainder of the lesions were fulgurated Surgeon: Ellis Anesthesia: General Estimated blood loss: <10 cc. 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 These were adequately sampled and then the area areas involved were completely fulgurated with the button probe. There was also a small papillary tumor on the posterior floor near the bladder neck that was completely fulgurated. No other lesions were seen. Total area fulgurated approximately 3.5 cm. Condition: stable Disposition: PACU Brief History: Mr. Hickey is a very pleasant 75-year-old white male with history of TCC of the bladder and on surveillance cystoscopy recently discovered to have multiple papillary changes at the bladder neck posteriorly anteriorly suspicious for recurrent TCCA. Possible CIS consideration. Admitted now for TURBT. Procedure: After routine preoperative evaluation examination and obtaining of informed consent he was taken to the operating suite on 03/16/21 where general anesthesia was administered without difficulty after appropriate timeout was performed, SCDs confirmed to be functioning, preoperative antibiotics administered, beta- reji protocol confirmed. Prepped and draped in usual sterile fashion in dorsolithotomy position paying careful attention to avoiding pressure points. 21 [place] cystoscope with 30 degree lens was introduced into the urethra meatus and advanced into the bladder under videoscopy. The bladder was examined with both 30 and 70 degree lenses. The clinic findings were confirmed. His bladder neck was rather stiff which made visualization of the anterior bladder neck somewhat difficult with a 30 degree lens. Urethra was then calibrated with Waterproof sounds and easily accommodated 30 Mosotho. 30 [place] scope with the visual obturator and a 25 [place] continuous-flow resectoscope sheath was advanced into the bladder without difficulty after 2% lidocaine jelly was instilled into the urethra. The super loop with the gyrus bipolar system was utilized to sample the areas at the bladder neck anteriorly and posteriorly. These small segments were sent for pathologic evaluation. The button probe was then utilized for fulguration of all of these areas completely. This involved area >3.5 cm. A small papillary lesion was noted just inside the bladder neck well away from the orifice more to the left than the right and it was completely fulgurated as well. No other lesions were identified on careful evaluation. Flexible cystoscope was then utilized to retroflex the scope and no residual lesions were identified. Final inspection with the resectoscope sheath and button probe was performed with some fulguration for meticulous hemostasis. All chips were confirmed to be out of the bladder. Hemostasis was confirmed. Scope was removed and a 20 [place] three-way Meléndez catheter with 30 cc in the balloon was left indwelling. Light continuous bladder irrigation was initiated. He tolerated procedure well without complication. Awakened in the operating room and returned to PACU in stable condition. PLANS: 1. Placed on observation status overnight. 2. Mitomycin bladder instillation prior to discharge 3. Anticipate discharge tomorrow morning
--- NOTE | 2021-03-16 14:05 | ANE.PACU2 ---
Inpatient post-anesthesia follow up: Airway intact: Yes Vital signs: Temperature 97.7 F Pulse Rate 54 Respiratory Rate 18 Blood Pressure 137/60 Pulse Oximetry 94 Oxygen Delivery Me thod Room Air Oxygen Flow Rate 8 Fraction of Inspir ed Oxygen Hydration adequate: Yes Nausea and vomiting: No Pain level: 1 Mental status: Baseline
[2021-03-16 17:13] LABS: Glucose Point of Care 129 mg/dL (70-110)
[2021-03-16] MEDS: atorvastatin 40 mg Tablet 20 MG PO (17:51)
[2021-03-16] MEDS: pantoprazole DR 40 mg Tablet PO (17:52)
[2021-03-16] MEDS: sotalol 80 mg Tablet 120 MG PO (17:52)
[2021-03-16] MEDS: metformin 500 mg Tablet PO (17:52)
[2021-03-16 20:54] LABS: Glucose Point of Care 253 mg/dL (70-110)
[2021-03-16] MEDS: insulin glargine 100 units/1 mL 40 UNIT SUBCUT (21:24)
[2021-03-17 00:45] VITALS: BP 121/61; PULSE 65; RESP 20; TEMP 36.9; O2SAT 92
--- NOTE | 2021-03-17 02:54 | PC.NURSE ---
HAND OFF PATIENT RESTING QUIETLY - PT HANDED OFF TO Carla MTZ RN
[2021-03-17 04:25] VITALS: BP 140/60; PULSE 67; RESP 18; TEMP 37.1; O2SAT 95
[2021-03-17] MEDS: chlorthalidone 25 mg Tablet PO (05:32)
[2021-03-17] MEDS: amlodipine 10 mg Tablet PO (05:33)
[2021-03-17] MEDS: ferrous sulfate EC 325 mg Tablet PO (05:33)
[2021-03-17] MEDS: duloxetine 20 mg Capsule PO (05:33)
[2021-03-17 05:34] VITALS: BP 140/60
[2021-03-17] MEDS: losartan 50 mg Tablet 100 MG PO (05:34)
[2021-03-17 06:45] LABS: Glucose Point of Care 134 mg/dL (70-110)
--- NOTE | 2021-03-17 07:38 | PM.MISC ---
Miscellaneous Note Note: Intravesical chemotherapy instillation (03/16/2024: Delayed entry) On afternoon of transurethral section of bladder tumor he underwent mitomycin instillation into the bladder for 1 hour. Instilled atraumatically Tolerated the medication well. Drained at 1 hour. Catheter placed to dependent drainage.
--- NOTE | 2021-03-17 07:39 | P.DS_ITS ---
Discharge Providers Date of Admission: 03/16/21 13:40 Date of Discharge: March 17, 2021 Attending Provider at Admission: Alli Corral MD Attending Provider at Discharge: Alli Corral MD Primary Care Provider: Bree Perkins MD Reason for Visit Reason for Visit: Recurrent transitional cell carcinoma bladder Hospital Course Hospital Course He was admitted on 03/16/2021 on the day of the procedure which went well. He had multiple small areas of recurrent transitional cell looking lesions at the bladder neck anterior and posteriorly and a small area just cephalad to the trigone. Adequate sampling was obtained and then fulguration of all identified lesions was conducted. Total of about 3.5 to 4 cm complete fulgurated area. On the afternoon of the surgery he underwent mitomycin instillation without complication. Held for 1 hour without difficulty. It was drained and the catheter was placed back to dependent drainage until postop day #1 where it was removed and he underwent a voiding trial. While he did void he only voided very small amounts with incomplete emptying. For that reason a catheter was replaced. He was discharged with catheter in place. He did have a history of somewhat progressive lower urinary tract symptoms likely consistent with BPH/obstruction. He had never been treated for that previously. Because of the postop urinary retention, preceding symptoms including decreased force of stream, nocturia, occasional urgency and near urgency incontinence it was decided to place him on TAMSULOSIN 0.4 mg p.o. nightly at discharge. Discharged on postop day #1 in stable condition with Meléndez catheter in place and plan for voiding trial early next week. Physical Exam Const: COMMON NORMALS: no acute distress, alert and well nourished GENERAL APPEARANCE: well kempt and well developed ORIENTATION/CONSCIOUSNESS: not confused HENMT: COMMON NORMALS: normocephalic and atraumatic HEAD & SCALP: normocephalic and atraumatic Resp: COMMON NORMALS: normal respiratory effort EFFORT & INSPECTION: No labored and No Actively coughing : OTHER: Urine clear with no CBI Neuro: SENSORIUM/ORIENTATION: Yes alert Psych: COMMON NORMALS: mental status grossly normal APPEARANCE: Yes grossly normal and Yes well kempt ATTITUDE: Yes calm and Yes engaged Urinary Catheter Management^: Meléndez: Cath Placed During This Visit: yes Reason for Continuing Indwelling Catheter: Perioperative Use in Selected Surgeries Urinary Catheter Date of Insertion: 03/16/21 Urinary Catheter Time of Insertion: 13:15 3-way Urethral CBI: Cath Placed During This Visit: no Reason for Continuing Indwelling Catheter: Perioperative Use in Selected Surgeries Discharge Data Data Completed and Pending: Pending at discharge Category Date Time Status Pathology: Surgic al [PTH] Routine Pth 03/16/21 13:38 Ordered Labs from last 24 hours 03/17/21 03/16/21 03/16/21 06:34 20:24 17:00 POC Glucose 134 H 253 H 129 H 03/16/21 11:32 POC Glucose 148 H Vitals: Last Vital Signs Temp 98.7 F 03/17/21 04:25 Pulse 67 03/17/21 04:25 Resp 18 03/17/21 04:25 BP 140/60 03/17/21 05:34 Pulse Ox 95 03/17/21 04:25 Discharge Plan Discharge Patient Disposition: Home Condition: Stable Prescriptions: New tamsulosin 0.4 mg capsule 0.4 mg PO DAILY Qty: 90 RF: 3 Continued duloxetine [Cymbalta] 20 mg capsule,delayed release(DR/EC) 20 mg PO QAM RF: 0 sucralfate 1 gram tablet 1 g PO QID PRN (Reason: UNKNOWN) RF: 0 amlodipine 10 mg tablet 10 mg PO QAM RF: 0 ferrous sulfate 325 mg (65 mg iron) tablet 325 mg PO QAM RF: 0 pantoprazole 40 mg tablet,delayed release (DR/EC) 40 mg PO BID RF: 0 chlorthalidone 25 mg tablet 25 mg PO QAM RF: 0 insulin aspart U-100 [Novolog Flexpen U-100 Insulin] 100 unit/mL (3 mL) insulin pen See Rx Instructions SUBCUT TID 90 Days Qty: 15 RF: 2 Lantus Solostar U-100 Insulin 100 unit/mL (3 mL) insulin pen 40 unit SUBCUT QPM Qty: 15 RF: 1 metformin 500 mg tablet 500 mg PO BID Qty: 180 RF: 0 Hold Instructions: Resume on 10/02/20. hydralazine 50 mg tablet 50 mg PO TID Qty: 270 RF: 3 tizanidine 4 mg tablet 4 mg PO Q8H PRN (Reason: Muscle Spasm) RF: 0 tramadol 50 mg tablet 50 mg PO QID PRN (Reason: Pain) RF: 0 simvastatin 20 mg tablet 20 mg PO QPM RF: 0 losartan 100 mg tablet 100 mg PO QAM RF: 0 sotalol 80 mg tablet 120 mg PO BID RF: 0 Held Xarelto 20 mg tablet 20 mg PO DAILY RF: 0 Hold Instructions: Resume on 03/27/21. clopidogrel 75 mg tablet 75 mg PO DAILY RF: 0 Hold Instructions: Resume on 03/27/21. Discharge Orders: Discharge Order (Routine); Ordered 03/17/21 Ordered By: Alli Corral Referrals: Alli Corral MD [Physician] - 05/18/21 8:15 am (You have an appointment with Dr. Corral on May 18 at 8:15 for a cystoscopy with possible fulguration.) Discharge Diet: Usual diet Discharge Activity: Increase activity as tolerated Patient Instructions: Transurethral Resection of Bladder Tumors (DC), Opioid Safety Activity Restrictions/Additional Instructions: 1. Please avoid any lifting >10 pounds. 2. Hold Xarelto and Plavix until 03/27/2021. Can start aspirin it next week 3. We will repeat cystoscopy in the office in about 2 months. 4. Please call my office in 1 week to check pathology report. Discharge Attestations Time Spent in Discharge Care*: greater than 30 min Status at Discharge: Cognitive status at discharge: cognitively intact , Behavioral status at discharge: cooperative , Quality Metrics Clinical Quality Measures During this hospital stay, did patient experience: None Coding Level of Care Code Acute Chg FW DC note Exam Expanded Problem Focused
[2021-03-17 08:06] VITALS: BP 150/62; PULSE 66; RESP 14; TEMP 36.8; O2SAT 92
[2021-03-17] MEDS: pantoprazole DR 40 mg Tablet PO (08:28)
[2021-03-17] MEDS: metformin 500 mg Tablet PO (08:28)
[2021-03-17] MEDS: sotalol 80 mg Tablet 120 MG PO (08:29)
[2021-03-17 12:07] VITALS: BP 150/52; PULSE 43; RESP 16; TEMP 36.8; O2SAT 100
--- NOTE | 2021-03-17 12:26 | PC.CHAP ---
Pastoral Care Encounter/Spiritual Assessment Type of Contact [] Declined sanitor visit [] Patient/Family/Request visit [] Outpatient visit [] Follow-up visit [] Physician referral [] Code/Alert [xx] Routine visit [] Staff referral [] Actively dying [] Patient sleeping [] Family support [] [] Out of room [] Palliative care [] [] Receiving care in room [] Pre-surgical visit [] Trauma [] Long length of stay [] ICU visit [] Other: Relational/Emotional Strength [xx] Patient feels connected with others/family/visitors/staff [] Distress [] Loneliness/isolation [] Abandonment Spirituality of Patient [xx] Person of Jewell [xx] Attends Mandaeism of their Jewell [xx] Believes in Prayer [xx] Reads Bible or Methodist materials [] There are Spiritual issues to be addressed Respite Care Provider 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 [xx] Prayer [xx] Active listening [xx] Non-anxious presence [] Spiritual/emotional support [] Crisis/trauma care [] Spiritual counseling [] Bereavement support [] Provided bereavement packet [] Provided Bible/devotional materials [] Provided toy/stuffed animal, coloring book to patient or family member [] Provided Communion [] Anointing/Sparks [] Salvation [xx] Completed spiritual assessment [] Other: Impact on Illness or Injury [] Angry [] Fearful [] Anxious [] Often cries [] Exhaustion [] Unable to work [] Unable to attend jewish [] Unable to walk/stand [] Unable to read [] Unable to drive [] Unable to eat/drink [] Unable to sleep [] Unable to be with family [] Patient intubated [] Other: Summary Patient pleasant and wanted to talk. This sanitor was on duty last time he was patient at [facility] so he wanted to reminisce and bring me up to date on his health issues. Time spent with patient 10 minutes
[2021-03-17 12:45] LABS: Glucose Point of Care 246 mg/dL (70-110)
--- NOTE | 2021-03-17 13:38 | PC.NURSE ---
Herr cath removed at 7:30. At 9am pt voided 60mls, bladder scan 30ml in bladder. At 1045 pt voided 30ml, bladder scan 80ml in the bladder. at 1330 pt voided 15mls with balder scan of 70ml in the bladder. pt states he feels like the tip of his penis is blocked encouraged oral fluids. editorial writer called Dr. Corral with orders to place an 18F herr cath.
[2021-03-17 17:40] VITALS: BP 150/52; PULSE 43; RESP 16; TEMP 36.8; O2SAT 100
== END 2021-03-17 17:00 | disposition home or self-care (01) ==
LOC: MEDSURG 13:41
PROVIDERS: Admitting Provider Urology; PCP Family Medicine; Visit Provider Urology
PROC: 0TJB8ZZ Inspection of Bladder, Via Natural or Artificial Opening Endoscopic (ICD-10-PCS; CPT 52000; principal; 2021-03-16 12:00)
PROC: 0TBB8ZZ Excision of Bladder, Via Natural or Artificial Opening Endoscopic (ICD-10-PCS; CPT 51720; 2021-03-16 12:00)
DX: D30.3 Benign neoplasm of bladder (principal); J44.9 Chronic obstructive pulmonary disease, unspecified; I48.91 Unspecified atrial fibrillation; I25.10 Atherosclerotic heart disease of native coronary artery without angina pectoris; Z95.5 Presence of coronary angioplasty implant and graft; K21.9 Gastro-esophageal reflux disease without esophagitis; Z85.51 Personal history of malignant neoplasm of bladder; E11.40 Type 2 diabetes mellitus with diabetic neuropathy, unspecified; F17.210 Nicotine dependence, cigarettes, uncomplicated
CPT/HCPCS: 51720; 52235; 36416; 82962; 88305; 93005; 96372; G0378; J1815; J1956; J2704; J3010; J7030; J9280

== ENCOUNTER 2021-03-26 11:02 | Inpatient (IN) | payer MEDICARE, BC, SELFPAY ==
[2021-03-26] VITALS (10 sets, daily range): BP systolic 108–142; BP diastolic 53–60; PULSE 66–110; RESP 18–24; TEMP 36.6–36.8; O2SAT 90–96; BMI 25.8
--- NOTE | 2021-03-26 11:35 | ECG_ITS ---
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 Measurements Intervals Walker Rate: 104 P: ME: QRS: -35 QRSD: 104 T: 87 QT: 371 QTc: 489 Interpretive Statements ATRIAL FIBRILLATION WITH RAPID VENTRICULAR RESPONSE MINIMAL VOLTAGE CRITERIA FOR LVH, CONSIDER NORMAL VARIANT [MEETS CRITERIA IN ONE OF: R(aVL), S(V1), R(V5), R(V5/V6)+S(V1)] INFERIOR MYOCARDIAL INFARCTION [40+ ms Q WAVE AND/OR ST/T ABNORMALITY IN II/aVF], PROBABLY OLD Compared to ECG 03/16/2021 11:15:58 Sinus bradycardia no longer present ST (T wave) deviation no longer present Myocardial infarct finding still present Electronically Signed On 03-26-2021 17:04:24 CDT by Art Mays M.D. [id number]
--- NOTE | 2021-03-26 11:39 | XRR_ITS ---
PROCEDURE INFORMATION: Exam: XR Chest Exam date and time: 03/26/2021 11:39 AM Age: 75 years old Clinical indication: Shortness of breath; Additional info: MELODY Watson TECHNIQUE: Imaging protocol: XR of the chest. Views: 1 view. COMPARISON: CR XR chest 1V portable [id number] 03/09/2021 1:38 PM FINDINGS: Lungs: There are pulmonary parenchymal calcifications consistent with remote granulomatous organism exposure. Pleural spaces: Unremarkable. No pleural effusion. No pneumothorax. Heart/Mediastinum: Unremarkable. No cardiomegaly. Vasculature: There is calcified plaque in the aortic knob. Bones/joints: There are degenerative changes in the thoracic spine and across the acromioclavicular joints. XR/XR chest 1V portable [id number] IMPRESSION: No evidence for acute cardiopulmonary disease.
--- NOTE | 2021-03-26 11:55 | W.ED.CHESTPA ---
HPI - Chest Pain General: Chief Complaint: Chest Pain Stated Complaint: CP SOB Time Seen by Provider: 03/26/21 11:33 Source: patient Mode of arrival: ambulatory Limitations: no limitations History of Present Illness: HPI narrative: Patient is a 75-year-old male with a history of atrial fibrillation, coronary artery disease status post stent placement x3, peripheral artery disease status post aortofemoral bypass. He recently had bladder tumor surgery and has been off his anticoagulants for about 2 weeks. He is due to resume his anticoagulants tomorrow. Patient has been having intermittent chest pain for about a month but this current episode started last night. He took 2 sublingual nitroglycerin tablets yesterday and one this morning. Nitroglycerin seemed to help the pain. He still has some residual pain now. Pain radiates to his left and left side of his neck. He did have some dizziness but no nausea and no diaphoresis. 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 Onset (ago): day(s) (1) Timing of current episode: constant Prior episodes: Yes Onset: during rest Pain location: left chest Pain radiation: left arm and neck Severity: moderate Quality: heaviness Relieving factors: nitroglycerin Exacerbating factors: exertion Context: recent surgery Associated symptoms: Deny abdominal pain, diaphoresis, dyspnea, fever(s), leg edema, nausea, palpitations, sense of impending doom, syncope or vomiting Treatment prior to arrival: aspirin and nitroglycerin Review of Systems General: Reports: 10 or more systems reviewed and unremarkable except in HPI and below Const: Denies: fever(s) or diaphoresis Card: Denies: palpitations or syncope Resp: Denies: dyspnea GI: Denies: abdominal pain, nausea or vomiting PFSH ED PFSH: Medical History Abdominal aortic aneurysm (AAA) Afib Anticoagulation adequate with anticoagulant therapy Atrial fibrillation with RVR Patient converted to normal sinus rhythm with home dose of sotalol. Bladder cancer Papillary lesion appears well differentiated diagnosed 11/29/2020. Recurrence February 2021 BPH loc w urin obs/LUTS Started on TAMSULOSIN March 2021 for chronic BPH symptoms Carotid stenosis COPD (chronic obstructive pulmonary disease) Coronary artery disease Diabetes mellitus Diabetic neuropathy Erectile dysfunction HTN (hypertension), benign Hypertriglyceridemia Peripheral arterial disease Proteinuria Tobacco abuse Surgical History H/O heart artery stent History of abdominal aortic aneurysm (AAA) repair History of carotid endarterectomy Hx of appendectomy Previous back surgery S/P femoral-popliteal bypass surgery S/P right coronary artery (RCA) stent placement hx of Distal RCA and Prox RCA Social History Household members: spouse Marital status: service: Yes branch: [employer] Current occupational status: retired Physical Exam Const: COMMON NORMALS: no acute distress, average body habitus, patient oriented x3, no limitations, healthy appearing, alert and well nourished HENMT: COMMON NORMALS: normocephalic, atraumatic and moist oral mucous membranes HEAD & SCALP: normocephalic and atraumatic Neck/C-Spine: COMMON NORMALS: no meningeal signs and no JVD Chest: COMMONS NORMALS: normal inspection of the chest and normal palpation of entire chest wall Resp: COMMON NORMALS: normal respiratory effort, No retractions, No use of accessory muscles, clear to auscultation bilaterally and percussion normal AUSCULTATION: clear to auscultation bilaterally PERCUSSION: percussion normal Cardio: COMMON NORMALS: no JVD, S1 normal heart sound present, S2 normal heart sound present, No gallops present (Cardio), No clicks present (Cardio), No murmurs present (Cardio), No rub (Cardio) and Peripheral pulses 2+ throughout RATE: tachycardic RHYTHM: abnormal rhythm regularly irregular HEART SOUNDS: S1 normal heart sound present and S2 normal heart sound present PERIPHERAL PULSES: Peripheral pulses 2+ throughout GI: COMMON NORMALS: Normal to inspection, nondistended, normoactive bowel sounds present, Soft to palpation, non-tender, No hepatosplenomegaly present, no masses and no bruits PALPATION: Yes Soft to palpation and Yes No hepatosplenomegaly present Extremity: COMMON NORMALS: normal to inspection, full ROM, capillary refill normal and no calf tenderness GENERAL: Yes edema (3+ pitting bilateral) Neuro: COMMON NORMALS: patient oriented x3 SENSORIUM/ORIENTATION: Yes alert MENINGEAL SIGNS: Yes no meningeal signs Course Consultations: Consultation #1: Discussed the patient with Dr. Mays. Since he has a significant cardiac history and is still with chest pain, it will be prudent to admit him for a stress test Time: 15:55 Consultation #2: Discussed the patient with Dr. Marin, hospitalist and he kindly accepted the patient to his service. Time: 15:58 Vital Signs: Vital signs: Vital Signs Temperature 97.9 F 03/28/21 08:55 Pulse Rate 74 03/28/21 08:55 Respiratory Rate 15 03/28/21 08:55 Blood Pressure 140/60 03/28/21 08:55 Pulse Oximetry 95 03/28/21 08:55 MDM - Chest Pain MDM Narrative: Medical decision making narrative: This 75 year old male who presents to the ED with chest pain. He has a significant cardiac history with CAD s/p stent x 3. His baseline troponin was elevated at 49, but his 2 hour delta is flat. However because of his risk factors and since he is still having some chest pain, he is being admitted to the [facility] for further evaluation and management. Medical Records: Attestation: I reviewed the patient's medical records. Lab Data: Attestation: I reviewed the patient's lab results. Labs: Lab Results 03/26/21 03/26/21 03/26/21 Range/Units 11:50 11:50 11:50 WBC 11.0 H (4.0-10.0) 10^3/ uL RBC 3.68 L (4.1-5.3) 10^6/u L Hgb 10.1 L (11.7-16.6) g/dL Hct 32.2 L (42.0-52.0) % MCV 87.5 (80-94) fL MCH 27.4 L (28.0-34.0) pg MCHC 31.4 (30.0-36.0) g/dL RDW 15.5 H (12.1-15.1) % Plt Count 387 (130-400) 10^3/c mm MPV 9.4 (7.4-10.4) fL Neut % (Auto) 70.8 % Lymph % (Auto) 15.8 % [place] % (Auto) 10.1 % Eos % (Auto) 2.2 % Baso % (Auto) 0.6 % Neut # (Auto) 7.82 H (1.8-7.7) 10^3/u L Lymph # (Auto) 1.7 (0.8-4.8) 10^3/u L [place] # (Auto) 1.1 H (0.2-0.9) 10^3/u L Eos # (Auto) 0.2 (0.0-0.8) 10^3/u L Baso # (Auto) 0.1 (0.0-0.1) 10^3/u L Nucleated RBC % (a uto) 0 % Nucleated RBCs # 0.0 /100WBC PT 14.40 (12.1-14.9) SECO NDS INR 1.08 (0.8-1.2) D-Dimer 1.68 H (0-0.59) ug/mIFE U Sodium 137 (136-145) mmol/L Potassium 3.5 (3.5-5.1) mmol/L Chloride 104 (98-107) mmol/L Carbon Dioxide 22 (22-29) mmol/L Anion Gap 14.5 (5-19) BUN 19 (8-23) mg/dL Creatinine 1.0 (0.7-1.2) mg/dL GFR Calculation Not Reportable Glucose 271 H (65-115) mg/dL Calculated Osmolal ity 296 H (285-295) mOsm/k g Calcium 6.9 L (8.5-10.5) mg/dL Total Bilirubin 0.2 (0.15-1.2) mg/dL AST 8 (0-40) U/L ALT 6 (0-41) U/L Alkaline Phosphata se 63 (40-130) IU/L Troponin T Baselin e (0-15) ng/L Troponin T 120 Min marianne (0-15) ng/L Delta Troponin T (0-10) ABS# NT-Pro-B Natriuret Pep 2138 H (0-125) pg/mL Total Protein 5.7 L (6.6-8.7) g/dL Albumin 3.1 L (3.5-5.2) g/dL Globulin 2.6 (1.3-4.6) g/dL Lipase 15 (13-60) U/L 03/26/21 03/26/21 Range/Units 11:50 14:02 WBC (4.0-10.0) 10^3/ uL RBC (4.1-5.3) 10^6/u L Hgb (11.7-16.6) g/dL Hct (42.0-52.0) % MCV (80-94) fL MCH (28.0-34.0) pg MCHC (30.0-36.0) g/dL RDW (12.1-15.1) % Plt Count (130-400) 10^3/c mm MPV (7.4-10.4) fL Neut % (Auto) % Lymph % (Auto) % [place] % (Auto) % Eos % (Auto) % Baso % (Auto) % Neut # (Auto) (1.8-7.7) 10^3/u L Lymph # (Auto) (0.8-4.8) 10^3/u L [place] # (Auto) (0.2-0.9) 10^3/u L Eos # (Auto) (0.0-0.8) 10^3/u L Baso # (Auto) (0.0-0.1) 10^3/u L Nucleated RBC % (a uto) % Nucleated RBCs # /100WBC PT (12.1-14.9) SECO NDS INR (0.8-1.2) D-Dimer (0-0.59) ug/mIFE U Sodium (136-145) mmol/L Potassium (3.5-5.1) mmol/L Chloride (98-107) mmol/L Carbon Dioxide (22-29) mmol/L Anion Gap (5-19) BUN (8-23) mg/dL Creatinine (0.7-1.2) mg/dL GFR Calculation Glucose (65-115) mg/dL Calculated Osmolal ity (285-295) mOsm/k g Calcium (8.5-10.5) mg/dL Total Bilirubin (0.15-1.2) mg/dL AST (0-40) U/L ALT (0-41) U/L Alkaline Phosphata se (40-130) IU/L Troponin T Baselin e 49 H (0-15) ng/L Troponin T 120 Min marianne 54.50 H (0-15) ng/L Delta Troponin T 5.50 (0-10) ABS# NT-Pro-B Natriuret Pep (0-125) pg/mL Total Protein (6.6-8.7) g/dL Albumin (3.5-5.2) g/dL Globulin (1.3-4.6) g/dL Lipase (13-60) U/L Imaging Data^: CXR: Attestation: I personally reviewed and interpreted this imaging study as follows: Radiologist's impression: [facility] [place], [place] [address]FLoi ReportSigned Patient: Memo Hickey #: [id number]: [id number]#:[id number]/Sex: 75 / MADM Date: 03/26/21Loc: ERRoom/Bed:Attending Dr: Ordering Provider/Ordering MD: Alex Huitron [place] [facility] [place] of Service: 03/26/21 Procedure(s): XR chest 1V portable [id number] Accession Number(s): [id number] Report Number: [id number] PROCEDURE INFORMATION: Exam: XR Chest Exam date and time: 03/26/2021 11:39 AM Age: 75 years old Clinical indication: Shortness of breath; Additional info: Walter, MELODY TECHNIQUE: Imaging protocol: XR of the chest. Views: 1 view. COMPARISON: CR XR chest 1V portable [id number] 03/09/2021 1:38 PM FINDINGS: Lungs: There are pulmonary parenchymal calcifications consistent with remote granulomatous organism exposure. Pleural spaces: Unremarkable. No pleural effusion. No pneumothorax. Heart/Mediastinum: Unremarkable. No cardiomegaly. Vasculature: There is calcified plaque in the aortic knob. Bones/joints: There are degenerative changes in the thoracic spine and across the acromioclavicular joints. XR/XR chest 1V portable [id number] IMPRESSION: No evidence for acute cardiopulmonary disease. Dictated By:Sultana Cornell MDSigned By:Sultana Cornell MDSigned Date/Time:03/26/21 1528DD/ 1527 CTA Chest: Attestation: I personally reviewed and interpreted this imaging study as follows: Radiologist's impression: [facility], [place] [address]JZ Scan ReportSigned Patient: Memo Hickey #: [id number]: [id number]#:[id number]/Sex: 75 / MADM Date: 03/26/21Loc: ERRoom/Bed:Attending Dr: Ordering Provider/Ordering MD: Alex Huitron [place] [facility] [place] of Service: 03/26/21 Procedure(s): CT angio chest PE protcl [id number] Accession Number(s): [id number] Report Number: [id number] PROCEDURE INFORMATION: Exam: CTA Chest With Contrast Exam date and time: 03/26/2021 1:56 PM Age: 75 years old Clinical indication: Shortness of breath; Prior surgery; Surgery date: 6+ months; Surgery type: Stents; Patient HX: Recent bladder surgery of blood thinners now w SOB and elev d-dimer; Additional info: Cp, MELODY TECHNIQUE: Imaging protocol: Computed tomographic angiography of the chest with contrast. 3D rendering (Not supervised by radiologist): MIP and/or 3D reconstructed images were created by the technologist. Radiation optimization: All CT scans at this facility use at least one of these dose optimization techniques: automated exposure control; mA and/or kV adjustment per patient size (includes targeted exams where dose is matched to clinical indication); or iterative reconstruction. Contrast material: OMNI 350; Contrast volume: 72 ml; Contrast route: INTRAVENOUS (IV); COMPARISON: CR (CHEST, ) 03/26/2021 12:26 PM RADIATION DOSE METRICS: Total DLP (mGy-cm): 595.76 FINDINGS: Pulmonary arteries: Normal. No pulmonary emboli. Aorta: Unremarkable. No aortic aneurysm. No aortic dissection. Lungs: There are emphysematous changes in the lungs. There are pulmonary parenchymal calcifications consistent with remote granulomatous organism exposure. There is scarring and/or atelectasis at the lung bases. Pleural spaces: Unremarkable. No pneumothorax. No pleural effusion. Heart: Multivessel atherosclerotic disease which involves the coronary arteries. Lymph nodes: There are calcified mediastinal and perihilar lymph nodes consistent with prior granulomatous exposure. There are multiple perihilar and mediastinal lymph nodes some of which appear enlarged and or rounded. There is a conglomeration of lymph nodes in the subcarinal space measuring 3.0 x 2.0 cm. There is a 2.0 x 2.2 cm right perihilar lymph node. Kidneys and ureters: Partially visualized left renal cysts. Bones/joints: There are degenerative changes in the visualized spine. Soft tissues: Unremarkable. CT/CT angio chest PE protcl [id number] IMPRESSION: 1. There are emphysematous changes in the lungs as described above. 2. No evidence for pulmonary embolus. 3. Multivessel atherosclerotic disease which involves the coronary arteries. COMMENTS: Consistent with the [employer] [employer]'s Incidental Findings Committee white paper (J Am Evelyne Radiol 2018): Any incidental renal lesion less than 1 cm or classified as too small to characterize, or any incidental cystic renal lesion characterized as simple-appearing, is likely benign. No follow-up imaging is recommended for these lesions per consensus recommendations based on imaging criteria. Radiation Dose CTDIVOL = (mGy): DLP = 595.76 (mGy-cm) Dictated By:Sultana Cornell MDSigned By:Sultana Cornell MDSigned Date/Time:03/26/21 1538DD/ 1537 EKG Data^: EKG 1: Attestation: I personally reviewed and interpreted this EKG as follows: EKG interpretation date: 03/26/21 EKG interpretation time: 11:40 Prior EKG tracings: available for review Interpretation: Atrial fibrillation with rapid ventricular response. Heart rate [address] changes. EKG 2: Attestation: I personally reviewed and interpreted this EKG as follows: EKG interpretation date: 03/26/21 EKG interpretation time: 13:29 Prior EKG tracings: available for review Interpretation: atrial fibrillation. HR [address] changes Discharge Plan Discharge Patient Disposition: Admitted As Inpatient Admit Provider: Casey Marin Clinical Impression: Chest pain, H/O heart artery stent Condition: Stable Discharge Diet: Cardiac Discharge Activity: Increase activity as tolerated Coding Level of Care Code ED Laboratory Scientist for Chg Fwd Exam Comprehensive
[2021-03-26 11:56] LABS: Basophils # 0.1 10^3/uL (0.0-0.1); Basophils % 0.6 %; Eosinophils # 0.2 10^3/uL (0.0-0.8); Eosinophils % 2.2 %; Hematocrit 32.2 % (42.0-52.0); Hemoglobin 10.1 g/dL (11.7-16.6); Lymphocytes # 1.7 10^3/uL (0.8-4.8); Lymphocytes % 15.8 %; Mean Corpuscular HGB Conc 31.4 g/dL (30.0-36.0); Mean Corpuscular Hemoglobin 27.4 pg (28.0-34.0); Mean Corpuscular Volume 87.5 fL (80-94); Mean Platelet Volume 9.4 fL (7.4-10.4); Monocytes # 1.1 10^3/uL (0.2-0.9); Monocytes % 10.1 %; Neutrophils # 7.82 10^3/uL (1.8-7.7); Neutrophils % 70.8 %; Nucleated Red Blood Cells % 0 %; Platelet Count 387 10^3/cmm (130-400); Red Blood Count 3.68 10^6/uL (4.1-5.3); Red Cell Distribution Width 15.5 % (12.1-15.1)
[2021-03-26 12:14] LABS: INR 1.08 (0.8-1.2)
[2021-03-26 12:17] LABS: D Dimer 1.68 ug/mIFEU (0-0.59)
[2021-03-26 12:27] LABS: Troponin(5th) Baseline 49 ng/L (0-15)
[2021-03-26 12:34] LABS: Alanine Aminotransferase 6 U/L (0-41); Albumin Level 3.1 g/dL (3.5-5.2); Alkaline Phosphatase 63 IU/L (40-130); Anion Gap 14.5 (5-19); Aspartate Amino Transferase 8 U/L (0-40); Blood Urea Nitrogen 19 mg/dL (8-23); Calcium 6.9 mg/dL (8.5-10.5); Carbon Dioxide 22 mmol/L (22-29); Chloride 104 mmol/L (98-107); Globulin 2.6 g/dL (1.3-4.6); Glucose 271 mg/dL (65-115); Lipase 15 U/L (13-60); NT Pro B Type Natriuretic Pept 2138 pg/mL (0-125); Osmolality Calculated 296 mOsm/kg (285-295); Potassium 3.5 mmol/L (3.5-5.1); Sodium 137 mmol/L (136-145); Total Bilirubin 0.2 mg/dL (0.15-1.2); Total Protein 5.7 g/dL (6.6-8.7)
[2021-03-26] MEDS: morphine 4 mg/mL SDV 1 mL IVP (13:25)
[2021-03-26] MEDS: ondansetron 2 mg/ML SDV 2 mL 4 MG IVP (13:26)
[2021-03-26] MEDS: nitroglycerin 1 gm/inch oint Pkt 0.5 INCH TOPICAL (13:27)
--- NOTE | 2021-03-26 13:39 | ECG_ITS ---
[facility] Test Date: 2021-03-26 Pat Name: Ashvin Hickey Department: Room: Gender: Male Epic Cupid Analyst: : 1945 Requested By: Alex Huitron I Order Number: [id number] Arvind MD: Art Mays M.D. Measurements Intervals [place] Rate: 99 P: NV: QRS: -37 QRSD: 106 T: 127 QT: 381 QTc: 489 Interpretive Statements ATRIAL FIBRILLATION MARKED LEFT AXIS DEVIATION [QRS AXIS < -30] MINIMAL VOLTAGE CRITERIA FOR LVH, CONSIDER NORMAL VARIANT [MEETS CRITERIA IN ONE OF: R(aVL), S(V1), R(V5), R(V5/V6)+S(V1)] ST DEVIATION AND MODERATE T-WAVE ABNORMALITY, CONSIDER LATERAL ISCHEMIA [-0.1+ mV T WAVE IN I/aVL/V5/V6] Compared to ECG 03/26/2021 11:40:08 Left-axis deviation now present T-wave abnormality now present Possible ischemia now present Myocardial infarct finding no longer present Electronically Signed On 03-26-2021 17:18:01 CDT by Art Mays M.D. [id number]
--- NOTE | 2021-03-26 13:56 | CTR_ITS ---
PROCEDURE INFORMATION: Exam: CTA Chest With Contrast Exam date and time: 03/26/2021 1:56 PM Age: 75 years old Clinical indication: Shortness of breath; Prior surgery; Surgery date: 6+ months; Surgery type: Stents; Patient HX: Recent bladder surgery of blood thinners now w SOB and elev d-dimer; Additional info: Cp, SOB TECHNIQUE: Imaging protocol: Computed tomographic angiography of the chest with contrast. 3D rendering (Not supervised by radiologist): MIP and/or 3D reconstructed images were created by the technologist. Radiation optimization: All CT scans at this facility use at least one of these dose optimization techniques: automated exposure control; mA and/or kV adjustment per patient size (includes targeted exams where dose is matched to clinical indication); or iterative reconstruction. Contrast material: OMNI 350; Contrast volume: 72 ml; Contrast route: INTRAVENOUS (IV); COMPARISON: CR (CHEST, ) 03/26/2021 12:26 PM RADIATION DOSE METRICS: Total DLP (mGy-cm): 595.76 FINDINGS: Pulmonary arteries: Normal. No pulmonary emboli. Aorta: Unremarkable. No aortic aneurysm. No aortic dissection. Lungs: There are emphysematous changes in the lungs. There are pulmonary parenchymal calcifications consistent with remote granulomatous organism exposure. There is scarring and/or atelectasis at the lung bases. Pleural spaces: Unremarkable. No pneumothorax. No pleural effusion. Heart: Multivessel atherosclerotic disease which involves the coronary arteries. Lymph nodes: There are calcified mediastinal and perihilar lymph nodes consistent with prior granulomatous exposure. There are multiple perihilar and mediastinal lymph nodes some of which appear enlarged and or rounded. There is a conglomeration of lymph nodes in the subcarinal space measuring 3.0 x 2.0 cm. There is a 2.0 x 2.2 cm right perihilar lymph node. Kidneys and ureters: Partially visualized left renal cysts. Bones/joints: There are degenerative changes in the visualized spine. Soft tissues: Unremarkable. CT/CT angio chest PE protcl [id number] IMPRESSION: 1. There are emphysematous changes in the lungs as described above. 2. No evidence for pulmonary embolus. 3. Multivessel atherosclerotic disease which involves the coronary arteries. COMMENTS: Consistent with the [employer]'s Incidental Findings Committee white paper (J Am Evelyne Radiol 2018): Any incidental renal lesion less than 1 cm or classified as too small to characterize, or any incidental cystic renal lesion characterized as simple-appearing, is likely benign. No follow-up imaging is recommended for these lesions per consensus recommendations based on imaging criteria. Radiation Dose CTDIVOL = (mGy): DLP = 595.76 (mGy-cm)
[2021-03-26] MEDS: iohexol 350 mg/mL 100 mL Btl IV (15:00)
--- NOTE | 2021-03-26 17:29 | P.HP_ITS ---
Providers/Chief Complaint Admitting Physician: Casey Marin Primary Care Provider: Bree Perkins MD Chief Complaint: CP, SOB History of Present Illness 75-year-old gentleman with history of CAD, status post banding x3, PAD, status post femoropopliteal bypass, abdominal aortic aneurysm, carotid stenosis, current smoker of 1 pack/day, atrial fibrillation previously on chronic anticoagulation with Xarelto, but Xarelto and Plavix both recently on hold for urologic procedure of bladder tumor removal as per discussion of urologist with cardiology due to most recent stent being placed in September, with other history including COPD noted in the chart, although he denied having COPD when asked, also with history of diabetes, HTN, HLD, is brought in for evaluation to ER by his due to on and off episodes of chest pressure, and most recently episode which started yesterday which persists in the left side of his chest, radiating to his left shoulder. Currently it is almost resolved, with decreased to 2/10 intensity with treatment in ER. He and his state that previously due to 2 similar presentations he had always ended up with a stent after work-up. In ER he is not hypoxic, 89-90% on room air, not tachycardic, afebrile, with mild leukocytosis 11,000, denies any significant cough. No phlegm production. Denies hemoptysis. Has had bilateral lower extremity swelling ever since his bypass surgery. Has had quite significant orthopnea for about a month. Denies formal diagnosis of CHF. In ER noted positive D-dimer 1.68. Additionally assessed by CT angiogram of the chest which did not show PE, no evidence of pneumonia. Noted multivessel atherosclerotic disease. First troponin 49, 2-hour troponin 54.5. EKG with known atrial fibrillation. NT proBNP 2138. Creatinine 1. 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 He has not thought about quitting smoking. Review of Systems Const: Denies: fever(s), chills, body aches or malaise Eyes: Denies: change in vision or eye redness ENMT: Denies: throat pain, oral sores or ear or mastoid pain Card: Reports: chest pain (pressure), edema, dyspnea on exertion and orthopnea; Denies: pre-syncope Resp: Denies: dyspnea, productive cough, change in phlegm color or hemoptysis GI: Denies: abdominal pain, nausea, vomiting, diarrhea, constipation, hematochezia or melena : Denies: flank pain, difficulty urinating, urinary frequency or hematuria Musc: Denies: back pain, joint swelling or joint redness Skin/Breast: Denies: rash, sores or new lesions Neuro: Denies: headache(s), numbness in extremities, weakness in extremities, dizziness, confusion or seizure-like activity Endo: Denies: polyuria or polydipsia Stanislav/Lymph: Denies: easy bleeding or purpura All/Imm: Denies: urticaria, throat swelling or tongue swelling Medications/Allergies Home Medications Medication Instructions Recorded Confirmed Last Taken Type ferrous sulfate 325 mg (65 mg 325 mg PO QAM 02/10/20 03/26/21 03/26/21 09:00 History iron) tablet pantoprazole 40 mg tablet,delayed 40 mg PO BID 07/05/20 03/26/21 03/26/21 09:00 History release metformin 500 mg tablet 500 mg PO BID #180 tab 08/08/20 03/26/21 03/26/21 09:00 Rx duloxetine 20 mg capsule,delayed 20 mg PO QAM cap 11/29/20 03/26/21 03/26/21 09:00 History release sucralfate 1 gram tablet 1 g PO QID PRN tab 11/29/20 03/26/21 03/26/21 09:00 History sotalol 120 mg PO BID 12/06/20 03/26/21 03/26/21 09:00 History amlodipine 10 mg tablet 10 mg PO QAM tab 12/23/20 03/26/21 03/26/21 09:00 History chlorthalidone 25 mg tablet 25 mg PO QAM 02/09/21 03/26/21 03/26/21 09:00 History insulin aspart U-100 100 unit/mL See Rx Instructions SUBCUT TID 90 02/09/21 03/26/21 03/25/21 Rx (3 mL) subcutaneous pen Days #15 ml insulin glargine 100 unit/mL (3 40 unit SUBCUT QPM #15 ml 02/09/21 03/26/21 03/25/21 Rx mL) subcutaneous pen rivaroxaban 20 mg tablet 20 mg PO DAILY 02/09/21 03/26/21 03/06/21 History clopidogrel 75 mg PO DAILY 03/09/21 03/26/21 03/06/21 History losartan 100 mg PO QPM 03/09/21 03/26/21 03/25/21 History simvastatin 20 mg PO QPM 03/09/21 03/26/21 03/25/21 History tizanidine 4 mg PO Q8H PRN 03/09/21 03/26/21 03/15/21 History tramadol 50 mg PO QID PRN 03/09/21 03/26/21 03/15/21 History hydralazine 50 mg tablet 50 mg PO TID #270 tab 03/15/21 03/26/21 03/26/21 09:00 Rx aspirin [Aspir-81] 81 mg PO QPM 03/26/21 03/26/21 03/25/21 History nitroglycerin [Nitrostat] 0.4 mg SUBLINGUAL Q5M PRN 03/26/21 03/26/21 03/26/21 10:00 History tamsulosin 0.4 mg PO QPM 03/26/21 03/26/21 03/25/21 History Allergies Allergy/AdvReac Type Severity Reaction Status Date / Time No Known Allergies Allergy Verified 03/26/21 13:36 PFSH Acute PFSH: Medical History (Updated 03/26/21 @ 17:39 by Casey Marin MD) Abdominal aortic aneurysm (AAA) Afib Anticoagulation adequate with anticoagulant therapy Atrial fibrillation with RVR Patient converted to normal sinus rhythm with home dose of sotalol. Bladder cancer Papillary lesion appears well differentiated diagnosed 11/29/2020. Recurrence February 2021 BPH loc w urin obs/LUTS Started on TAMSULOSIN March 2021 for chronic BPH symptoms Carotid stenosis COPD (chronic obstructive pulmonary disease) Coronary artery disease Diabetes mellitus Diabetic neuropathy Erectile dysfunction HTN (hypertension), benign Hypertriglyceridemia Peripheral arterial disease Proteinuria Tobacco abuse Surgical History H/O heart artery stent History of abdominal aortic aneurysm (AAA) repair History of carotid endarterectomy Hx of appendectomy Previous back surgery S/P femoral-popliteal bypass surgery S/P right coronary artery (RCA) stent placement hx of Distal RCA and Prox RCA Social History Household members: spouse Marital status: service: Yes branch: [employer] Current occupational status: retired Vitals/I&O/Wt Last Vital Signs Temp 98.2 F 03/26/21 11:24 Pulse 71 03/26/21 16:34 Resp 21 H 03/26/21 16:34 BP 142/58 03/26/21 16:34 Pulse Ox 90 03/26/21 16:34 Weight last 48 hrs Weight 77.111 kg Physical Exam Narrative: EXAM NARRATIVE: at bedside Const: COMMON NORMALS: no acute distress and patient oriented x3 GENERAL APPEARANCE: frail appearing NUTRITIONAL APPEARANCE: overweight HENMT: COMMON NORMALS: oropharynx normal Neck/C-Spine: OTHER: Cannot appreciate JVD but short, thick neck Resp: COMMON NORMALS: normal respiratory effort AUSCULTATION: crackles Laterality: bilateral (bases) Cardio: COMMON NORMALS: no JVD, S1 normal heart sound present, S2 normal heart sound present and No murmurs present (Cardio) RHYTHM: abnormal rhythm irregularly irregular HEART SOUNDS: S1 normal heart sound present and S2 normal heart sound present GI: COMMON NORMALS: Normal to inspection, nondistended, normoactive bowel sounds present, Soft to palpation and non-tender PALPATION: Yes Soft to palpation Extremity: COMMON NORMALS: no joint enlargement GENERAL: Yes edema (2+ below knees) Neuro: COMMON NORMALS: patient oriented x3 and moves all extremities Skin: COMMON NORMALS: no rashes or lesions noted GENERAL SKIN EXAM: no rashes or lesions noted Data : 03/26/21 11:50 03/26/21 11:50 A&P Assessment and plan (1) Chest pain: Complete troponin EKG series. Continue aspirin. Plavix has been on hold alongside anticoagulation due to risk of bleeding with removal of bladder cancer tumors. It was deemed safe to resume Plavix tomorrow, however, please confirm with cardiology prior to resuming the medication. Telemetry monitoring. Assess TTE due to acute CHF. Appreciate cardiology recommendations. Tentative plan for additional assessment starting with stress testing tomorrow morning. Discussed with patient and his , they are agreeable with plan. Status: Acute (2) Acute diastolic CHF (congestive heart failure): He reports severe orthopnea, dyspnea on exertion. Lower extremity edema. Start Lasix 40 mg IV twice daily for treatment of acute diastolic CHF exacerbation. Last echo grade 2 diastolic dysfunction. Normal EF. Assess TTE. Complete assessment additionally with troponin and EKG series as above. Stress testing tomorrow. Status: Acute (3) Bladder cancer: Status post tumor removal for bladder cancer, following with urology. Status: Acute Qualifiers: Bladder location: posterior wall Qualified Code(s): 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 (4) Coronary artery disease: Please note Plavix has been on hold as per urology discussion with cardiology due to risk of bleeding from removal of recent bladder cancer tumors. He is due to resume Plavix tomorrow. Please discuss with cardiology prior to resumption as multivessel coronary artery atherosclerosis is seen on CT angiogram chest. Please continue to revisit and encourage him to quit smoking. Status: Acute Qualifiers: Coronary Disease-Associated Artery/Lesion type: [place] artery [place] vs. transplanted heart: [place] heart Associated angina: with unspecified angina Qualified Code(s): I25.119 - Atherosclerotic heart disease of [place] coronary artery with unspecified angina pectoris (5) Afib: Anticoagulation has been on hold for removal of bladder cancer tumors. As per urology recommendations he is to resume anticoagulation tomorrow. Please resume if there are no issues with bleeding. Status: Acute Qualifiers: Atrial fibrillation type: unspecified chronic Qualified Code(s): I48.20 - Chronic atrial fibrillation, unspecified (6) Tobacco abuse: We discussed smoking cessation for just about 4 minutes. With history of CAD, stenting x3, peripheral arterial disease, status post femoropopliteal bypass, carotid artery stenosis, aortic aneurysm, urinary bladder cancer, possible COPD, he states he has not thought of quitting smoking. Encouraged him to quit smoking as smoking might contribute to these conditions and will lead to continued progression. Please revisit with him again. Continue to encourage cessation although it does not sound like he is ready to quit at this time just yet. Status: Acute (7) Elevated d-dimer: Lower extremity edema, abnormal D-dimer. CT angiogram chest negative for PE. Assess lower extremity duplex ultrasound. Status: Acute Additional A&P Information DM2 HTN HLD PAD, history of femoropopliteal bypass Carotid stenosis AAA Other chronic problems noted Attestations Medical Necessity Statement*: Admission of over 2 midnights is anticipated in a gentleman with acute diastolic congestive heart failure, additional assessment of chest pain, progression of coronary disease, with prior stenting, currently with antiplatelet agent and anticoagulation on hold due to removal of bladder cancer, monitoring for any bleeding, additional assessment for DVT in the setting of metabolic syndrome, active smoking and multiple other comorbidities. Coding Level of Care Code Acute Crime Analyst for Sarah Terrazas Diagnoses Chest pain R07.9 Acute diastolic CHF (congestive heart failure) I50.31 Bladder cancer C67.4 Bladder location: posterior wall Coronary artery disease I25.119 Coronary Disease-Associated Artery/Lesion type: [place] artery [place] vs. transplanted heart: [place] heart Associated angina: with unspecified angina Afib I48.20 Atrial fibrillation type: unspecified chronic Tobacco abuse Z72.0 Elevated d-dimer R79.89
[2021-03-26 18:02] LABS: Troponin 5 6HR 93.68 ng/L (0-15)
[2021-03-26 18:04] LABS: Troponin 5 6HR Delta 44.68 ng/L (0-12)
[2021-03-26] MEDS: FUROsemide 10 mg/mL SDV 4mL 40 MG IVP (18:53)
--- NOTE | 2021-03-26 18:57 | PM.CONSULT ---
Providers/Reason For Consult Consulting Physician/Specialty*: Art Mays MD/ Cardiology Reason for Consult*: Chest pain Requesting Physician: Dr Huitron Attending Physician: Casey Marin Primary Care Provider: Bree Perkins MD History of Present Illness History of Present Illness Ashvin Hickey is a 75 year old male with history of CAD,s/p multiple PCIs, PAD, status post femoropopliteal bypass, abdominal aortic aneurysm, carotid stenosis, current smoker of 1 pack/day, atrial fibrillation previously on chronic anticoagulation with Xarelto, but Xarelto and Plavix both recently held for urologic procedure of bladder tumor removal, diabetes, HTN, HLD, presented to the ER with on and off chest discomfort episodes for 1 day. According to patient's , he was complaining of chest discomfort since being off of Plavix over the last month. Describes substernal chest pain that radiates to the left arm. This morning the chest pain got worse and he came to the ER. EKG did not show significant ischemic changes. Initial troponin was 49 with a 2-hour delta of 5. Review of Systems General: Reports: 10 or more systems reviewed and unremarkable except in HPI and below Narrative: Const Denies: fever(s), chills, body aches, change in appetite or diaphoresis Card Has chest pain and shortness of breath Resp Denies: productive cough, wheezing or pain on inspiration GI Denies: abdominal pain, nausea, vomiting, diarrhea or constipation Denies: flank pain or difficulty urinating Musc Denies: back pain, extremity pain or extremity swelling Neuro Denies: headache(s), difficulty walking or confusion Meds/Allergies Home Medications and Allergies Home Medications Medication Instructions Recorded Confirmed Last Taken Type ferrous sulfate 325 mg (65 mg 325 mg PO QAM 02/10/20 03/26/21 03/26/21 09:00 History iron) tablet pantoprazole 40 mg tablet,delayed 40 mg PO BID 07/05/20 03/26/21 03/26/21 09:00 History release metformin 500 mg tablet 500 mg PO BID #180 tab 08/08/20 03/26/21 03/26/21 09:00 Rx duloxetine 20 mg capsule,delayed 20 mg PO QAM cap 11/29/20 03/26/21 03/26/21 09:00 History release sucralfate 1 gram tablet 1 g PO QID PRN tab 11/29/20 03/26/21 03/26/21 09:00 History sotalol 120 mg PO BID 12/06/20 03/26/21 03/26/21 09:00 History amlodipine 10 mg tablet 10 mg PO QAM tab 12/23/20 03/26/21 03/26/21 09:00 History chlorthalidone 25 mg tablet 25 mg PO QAM 02/09/21 03/26/21 03/26/21 09:00 History insulin aspart U-100 100 unit/mL See Rx Instructions SUBCUT TID 90 02/09/21 03/26/21 03/25/21 Rx (3 mL) subcutaneous pen Days #15 ml insulin glargine 100 unit/mL (3 40 unit SUBCUT QPM #15 ml 02/09/21 03/26/21 03/25/21 Rx mL) subcutaneous pen rivaroxaban 20 mg tablet 20 mg PO DAILY 02/09/21 03/26/21 03/06/21 History clopidogrel 75 mg PO DAILY 03/09/21 03/26/21 03/06/21 History losartan 100 mg PO QPM 03/09/21 03/26/21 03/25/21 History simvastatin 20 mg PO QPM 03/09/21 03/26/21 03/25/21 History tizanidine 4 mg PO Q8H PRN 03/09/21 03/26/21 03/15/21 History tramadol 50 mg PO QID PRN 03/09/21 03/26/21 03/15/21 History hydralazine 50 mg tablet 50 mg PO TID #270 tab 03/15/21 03/26/21 03/26/21 09:00 Rx aspirin [Aspir-81] 81 mg PO QPM 03/26/21 03/26/21 03/25/21 History nitroglycerin [Nitrostat] 0.4 mg SUBLINGUAL Q5M PRN 03/26/21 03/26/21 03/26/21 10:00 History tamsulosin 0.4 mg PO QPM 03/26/21 03/26/21 03/25/21 History Allergies Allergy/AdvReac Type Severity Reaction Status Date / Time No Known Allergies Allergy Verified 03/26/21 13:36 Current Medications Current Medications Generic Name Dose Route Start Last Admin Trade Name Freq PRN Reason Stop Dose Admin Furosemide 40 mg 03/26/21 17:45 03/26/21 18:53 Furosemide 10 Mg/Ml Sdv 4ml IVP 40 mg Q12H LISSA Administration PFSH Acute PFSH: Medical History Abdominal aortic aneurysm (AAA) Afib Anticoagulation adequate with anticoagulant therapy Atrial fibrillation with RVR Patient converted to normal sinus rhythm with home dose of sotalol. Bladder cancer Papillary lesion appears well differentiated diagnosed 11/29/2020. Recurrence February 2021 BPH loc w urin obs/LUTS Started on TAMSULOSIN March 2021 for chronic BPH symptoms Carotid stenosis COPD (chronic obstructive pulmonary disease) Coronary artery disease Diabetes mellitus Diabetic neuropathy Erectile dysfunction HTN (hypertension), benign Hypertriglyceridemia Peripheral arterial disease Proteinuria Tobacco abuse Surgical History H/O heart artery stent History of abdominal aortic aneurysm (AAA) repair History of carotid endarterectomy Hx of appendectomy Previous back surgery S/P femoral-popliteal bypass surgery S/P right coronary artery (RCA) stent placement hx of Distal RCA and Prox RCA Social History Household members: spouse Marital status: service: Yes branch: [employer] Current occupational status: retired Vitals/I&O/Wt Last Vital Signs Temp 98.2 F 03/26/21 11:24 Pulse 71 03/26/21 18:14 Resp 21 H 03/26/21 18:14 BP 142/58 03/26/21 18:14 Pulse Ox 90 03/26/21 18:14 Weight last 48 hrs Weight 170 lb Physical Exam Narrative: EXAM NARRATIVE: GENERAL: Patient is alert, awake and oriented x3. [] NECK: No jugular vein distension. [] HEENT: No cyanosis. No icterus. No pallor. [] HEART: Regular S1 and S2. No murmur, rub or gallop. [] LUNGS: Clear to auscultate bilaterally. [] ABDOMEN: Soft, nontender and nondistended. Positive bowel sounds. No guarding, rebound or tenderness. [] CENTRAL NERVOUS SYSTEM: Grossly nonfocal. [] EXTREMITIES: Lower extremities with 1+ edema bilaterally. Pulses palpable in the lower extremities, both dorsalis pedis and posterior tibial. [] A&P Assessment and plan (1) Coronary artery disease: Status: Acute Qualifiers: Coronary Disease-Associated Artery/Lesion type: [place] artery [place] vs. transplanted heart: [place] heart Associated angina: with unspecified angina Qualified Code(s): I25.119 - Atherosclerotic heart disease of [place] coronary artery with unspecified angina pectoris (2) Chest pain: Status: Acute (3) Carotid stenosis: Status: Acute (4) Tobacco abuse: Status: Acute (5) Unstable angina: Status: Acute Patient has presented with chest pain symptoms consistent with unstable angina. 2-hour delta is borderline. If troponins go up significantly at 6 hours, initiate heparin drip. Continue aspirin. Urology was okay to restart Plavix tomorrow according to patient and his 's history. If he needs a stent, we will reload him with Plavix 600. We will keep him off of Eliquis for now. Risks associated with no anticoagulation in setting of A. fib discussed with the patient. He is in agreement with the plan. Given patient's history of multiple coronary stents and him being off of antiplatelet and anticoagulation for urologic procedure, the likelihood of in-stent restenosis/stent thrombosis is high. We will proceed with coronary angiogram with possible percutaneous coronary intervention in the morning. N.p.o. after midnight. Smoking cessation strongly recommended. Patient says he is considering it. Order echocardiogram. Thank you for involving us with the care of this patient. We will continue to follow. Please call with questions. Coding Level of Care Code Acute Cooperative Education Director for Sarah Terrazas Diagnoses Coronary artery disease I25.119 Coronary Disease-Associated Artery/Lesion type: [place] artery [place] vs. transplanted heart: [place] heart Associated angina: with unspecified angina Chest pain R07.9 Carotid stenosis I65.29 Tobacco abuse Z72.0 Unstable angina I20.0
--- NOTE | 2021-03-26 19:01 | PC.NURSE ---
received from er via w/c at 1994.report received.pt is alert and awake and oriented x 4.sr on monitor.vss.denies any chest pain at present.oriented to room environment.instructed to notify staff for any cp,sob,or for any concerns at all.pt verb understanding of instructions.
[2021-03-26] MEDS: sotalol 80 mg Tablet 120 MG PO (20:09)
[2021-03-26] MEDS: hyDRALAzine 50 mg Tablet PO (20:09)
[2021-03-26] MEDS: pantoprazole DR 40 mg Tablet PO (20:10)
[2021-03-26] MEDS: aspirin 81 mg EC Tablet PO (20:10)
[2021-03-26] MEDS: losartan 50 mg Tablet 100 MG PO (20:10)
[2021-03-26] MEDS: atorvastatin 40 mg Tablet 20 MG PO (20:10)
[2021-03-26] MEDS: tamsulosin 0.4 mg Capsule PO (20:11)
[2021-03-26] MEDS: insulin glargine 100 units/1 mL 20 UNIT SUBCUT (21:18)
[2021-03-26 22:22] LABS: Glucose Point of Care 322 mg/dL (70-110)
[2021-03-27] VITALS (19 sets, daily range): BP systolic 117–149; BP diastolic 52–65; PULSE 60–73; RESP 12–40; TEMP 36.5–36.8; O2SAT 91–98
[2021-03-27 04:21] LABS: Basophils # 0.1 10^3/uL (0.0-0.1); Basophils % 0.8 %; Eosinophils # 0.4 10^3/uL (0.0-0.8); Eosinophils % 3.4 %; Hematocrit 28.4 % (42.0-52.0); Hemoglobin 8.7 g/dL (11.7-16.6); Lymphocytes % 19.9 %; Mean Corpuscular HGB Conc 30.6 g/dL (30.0-36.0); Mean Corpuscular Hemoglobin 27.3 pg (28.0-34.0); Mean Platelet Volume 9.7 fL (7.4-10.4); Monocytes # 1.3 10^3/uL (0.2-0.9); Monocytes % 12.7 %; Neutrophils # 6.41 10^3/uL (1.8-7.7); Neutrophils % 62.9 %; Nucleated Red Blood Cells % 0 %; Platelet Count 354 10^3/cmm (130-400); Red Blood Count 3.19 10^6/uL (4.1-5.3); Red Cell Distribution Width 15.6 % (12.1-15.1); White Blood Count 10.2 10^3/uL (4.0-10.0)
[2021-03-27 04:38] LABS: Alanine Aminotransferase 6 U/L (0-41); Alkaline Phosphatase 65 IU/L (40-130); Anion Gap 14.7 (5-19); Aspartate Amino Transferase 18 U/L (0-40); Blood Urea Nitrogen 20 mg/dL (8-23); Calcium 7.6 mg/dL (8.5-10.5); Carbon Dioxide 24 mmol/L (22-29); Chloride 104 mmol/L (98-107); Creatinine Clr Calc Pharmacy 59.9037; Globulin 3.1 g/dL (1.3-4.6); Glucose 100 mg/dL (65-115); Osmolality Calculated 291 mOsm/kg (285-295); Potassium 3.7 mmol/L (3.5-5.1); Sodium 139 mmol/L (136-145); Total Bilirubin 0.2 mg/dL (0.15-1.2); Total Protein 6.1 g/dL (6.6-8.7)
[2021-03-27] MEDS: ferrous sulfate EC 325 mg Tablet PO (05:12)
[2021-03-27] MEDS: duloxetine 20 mg Capsule PO (05:12)
[2021-03-27] MEDS: diphenhydrAMINE 50 mg Capsule PO (05:12)
[2021-03-27] MEDS: amlodipine 10 mg Tablet PO (05:12)
[2021-03-27] MEDS: FUROsemide 10 mg/mL SDV 4mL 40 MG IVP (05:12)
[2021-03-27 06:55] LABS: Glucose Point of Care 117 mg/dL (70-110)
--- NOTE | 2021-03-27 07:18 | XACV_ITS ---
Exam Room: [facility] Ht: 173 cm Wt: 77 kg BSA: 1.94 m2 Gender: Male : 1945 Any Known Allergies: No known allergies Exam Priority: Routine Procedure(s): Procedure Description: Diagnostic procedure Procedure Description: PCI procedure Procedure Description: Left Heart Catheterization Procedure Description: Left ventriculography Procedure Description: Drug Eluting Coronary Stent Procedure Description: PTCA Diagnostic Cath Status: Urgent Diagnostic Findings * Mid left circumflex artery has * 50-60% stenosis. * OM branch has diffuse severe disease.. * Left Main has minor luminal irregularities. * Left Anterior Descending has mild luminal irregularities. * Proximal to Mid Right Coronary Artery: critical 95% instent restenosis, LANCE: 3 flow. * Coronary angiography shows right dominance. PCI Status: Urgent PCI Indication: NSTE - ACS Interventional Findings * Procedure details: We engaged RCA with a JR4 guide catheter. IV heparin was administered to maintain an ACT above 250 seconds. A 0.014 run-through guidewire was used to cross the stenosis and was placed in PLV branch. Using a guide liner we predilated the proximal to mid severe in-stent restenosis with a 3.5 x 8 mm NC balloon. This was followed by placement of 3.5 x 22 mm resolute Tyson drug-eluting stent. Postdilated the stent with a 3.75 x 8 mm NC balloon. At this time final angiogram was performed that showed excellent stent expansion, LANCE-3 flow and no residual stenosis. Guidewire and guide catheter were removed and TR band applied to achieve hemostasis.. * Mid Right Coronary Artery: 95% stenosis treated with a MDT NC EUPHORA RX [id number] BALLOON, MDT R TYSON 3.5X22 JAMSHID, and MDT NC EUPHORA RX [id number] BALLOON. 0% residual stenosis, LANCE: 3 flow. Conclusions 1. Critical instent restenosis of the proximal to mid RCA s/p successful revascularization with JAMSHID x 1. 2. Mid Right Coronary Artery was treated with a Balloon, Drug Eluting Stent, and Balloon. Recommendations * Transfer to [facility]. * Aspirin and Plavix for atleast 1 year. * High intensity statin therapy. * Smoking cessation strongly recommended. * Outpatient cardiology follow up in 4 weeks. Interventional RX Recommendation: PCI w/o planned CABG Diagnostic RX Recommendation: PCI w/o planned CABG Anticoagulation: Heparin Pressures Phase:Rest AO : 156 / 32 ( 63 ) @ 7:11:00 AM 151 / 50 ( 91 ) @ 7:11:00 AM LV : 155 / -5 / 26 @ 7:11:00 AM Clinical Evaluation EBL: 5mL-10mL Procedural Details Procedure Consent Obtained. Admit Source: In Patient. Pre-Procedure Time Out. Identified patient by full name and date of as verbalized by the patient/guarantor. Does the consent match the physician's order: Yes. Accurate & Complete Informed Consent: Yes. Inpatient/Outpatient History & Physical on Chart: Yes. If H&P is completed, is and addenduem needed: Yes; If yes, is the addendum complete: N/A. Visualize and Verify Site with Patient/Guarantor: N/A. Relevant Radiology Images available: N/A. Pre-op teaching completed and patient verbalized understanding. The risks, benefits, and alternatives of sedation and/or procedure were discussed by physician. The patient agrees to continue. Procedure started. [facility] Clinical Fraility Score: 4: Vulnerable. Grit Blaster Indications: ACS <= 24 hours. Chest Pain Symptom Assessment: NSTEMI. Cardiovascular Instability: No. Correct patient, site and procedure confirmed by cath team. PERRLA. Strong, equal hand talent associate bilaterally. Lungs clear x 5 lobes. IV Site on Arrival: 18 gauge in the right anticubital. Oxygen started at 2liters/min via nasal canula. bilateral groins was prepped with chloroprep then draped in the usual sterile fashion. right radial was prepped with chloroprep then draped in the usual sterile fashion. Baseline sample Acquired. HR: 76 BPM. Physician notified. Physician arrived. Physician scrubbed in. Immediate Pre-Procedure Time Out. Correct Patient: Yes; Correct Procedure: Yes; Correct Site: Yes; Correct Patient Position: Yes; Correct Supplies: Yes; Dried Flammable Prep: Yes; Blood Products Available: N/A;. Lidocaine 1% infiltrated to the right radial. Arterial access obtained. A 5 romanian TIG catheter in over wire. wire out. handinjection performed. wire out. handinjection performed. runthrough wire inserted. advancing TIG. Multiple views taken of left coronary artery. Catheter redirected to the RCA. Multiple views taken of right coronary artery. Catheter out. 6 romanian JR 4 guide catheter was inserted over the wire. EDP Sample taken: LV 155/-6,26; HR: 70 BPM; SpO2: 92%. Runthrough guidewire was advanced through the guide catheter to lesion in the mid RCA. Inflation number : 1 A MDT NC EUPHORA RX [id number] BALLOON was prepped and advanced across the Mid RCA , then inflated to 12 [place] for 0:09 seconds. Inflation number: 2 The MDT NC EUPHORA RX [id number] BALLOON was reinflated across the Mid RCA, to 12 [place] for 0:07 seconds. Inflation number: 3 The MDT NC EUPHORA RX [id number] BALLOON was reinflated across the Mid RCA, to 16 [place] for 0:32 seconds. Inflation number: 4 The MDT NC EUPHORA RX [id number] BALLOON was reinflated across the Mid RCA, to 12 [place] for 0:09 seconds. Balloon out. 6F guideliner inserted. Inflation number: 5 The MDT NC EUPHORA RX [id number] BALLOON was reinflated across the Mid RCA, to 16 [place] for 0:21 seconds. Inflation number: 6 The MDT NC EUPHORA RX [id number] BALLOON was reinflated across the Mid RCA, to 12 [place] for 0:11 seconds. Balloon out. Inflation Number : 7 A YUE R TYSON 3.5X22 JAMSHID -Lot Number# [id number] exp date: 08-30-2022 was prepped and advanced across the Mid RCA. The stent was deployed at 12 [place] for 0:31 seconds. Stent balloon out over wire. Inflation number : 8 A MDT NC EUPHORA RX [id number] BALLOON was prepped and advanced across the Mid RCA , then inflated to 16 [place] for 0:22 seconds. Inflation number: 9 The MDT NC EUPHORA RX [id number] BALLOON was reinflated across the Mid RCA, to 16 [place] for 0:20 seconds. Inflation number: 10 The MDT NC EUPHORA RX [id number] BALLOON was reinflated across the Mid RCA, to 18 [place] for 0:25 seconds. Inflation number: 11 The MDT NC EUPHORA RX [id number] BALLOON was reinflated across the Mid RCA, to 18 [place] for 0:23 seconds. Balloon out. 6F guidliner out. checking results. wire out. Guide catheter out. Wire out. TR band placed. Hemostasis obtained. Post Procedure: Pulses reassessed and unchanged. PERRLA. Strong, equal hand talent associate bilaterally. No VTE prophylaxis required. Medication's Wasted: Lidocaine 1% = 18 mL. Medication's Wasted: Heparin = 2000 units. Medication's Wasted: Nitro = 49.6 mg. Medication's Wasted: Other = fentanyl 50 mg. Total IV fluids: 90 mL. Contrast type used: Omnipaque 300 mgI/mL, 500 mL bottle. Contrast Material : Omnipaque 175 ml. A TR Band was successful obtaining hemostatsis at the Right Radial artery insertion site. Complications: none. Estimated blood loss: 5mL-10mL. Procedure completed. Post-op diagnosis: severe mid RCA stenosis. PCI Indication: NSTE. Patient transferred by wheelchair to 1st floor. Vital chart was stopped. Access Site Site: Right Radial artery Sheath Size: 6 Fr Hemostasis Method: TR Band Hemostasis Success: Successful Procedure Medications Start: 7:27 AM Stop: 7:27 AM Medication: Versed Amount: 1 mg Route: I.V. Start: 7:34 AM Stop: 7:34 AM Medication: Fentanyl Amount: 25 mcg Route: I.V. Start: 7:49 AM Stop: 7:49 AM Medication: Verapamil Amount: 2.5 mg Route: I.A. Start: 7:59 AM Stop: 7:59 AM Medication: Heparin Amount: 5000 units Route: I.V. Start: 8:06 AM Stop: 8:06 AM Medication: Versed Amount: 0.5 mg Route: I.V. Start: 8:08 AM Stop: 8:08 AM Medication: Heparin Amount: 4000 units Route: I.V. Start: 8:10 AM Stop: 8:10 AM Medication: Fentanyl Amount: 25 mcg Route: I.V. Start: 8:25 AM Stop: 8:25 AM Medication: Versed Amount: 0.5 mg Route: I.V. Start: 8:35 AM Stop: 8:35 AM Medication: Nitrogylcerin Amount: 200 mcg Route: I.C. Start: 8:41 AM Stop: 8:41 AM Medication: Plavix Amount: 600 mg Route: P.O. Start: 8:41 AM Stop: 8:41 AM Medication: Aspirin Amount: 325 mg Route: P.O. I, the attending physician, have reviewed and verified all procedure medications. Yes, all medications given per verbal order History/Risk Factors Hypertension: Yes Dyslipidemia: Yes Tobacco Use: Current/Recent(w/in 1 year) Prior 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 PCI: Yes Date of PCI: 09/18/2018 Report Signatures Finalized by Art Mays MD on 04/10/2021 06:23 PM
--- NOTE | 2021-03-27 07:23 | P.HPUD_ITS ---
Surgery/Procedure H&P Update DATE OF PROCEDURE: March 27, 2021 DATE H&P PERFORMED: 03/26/21 H&P UPDATE INFORMATION: I have reviewed H&P completed within last 30 days, I have examined patient prior to procedure and Changes to prior documentation as noted here CHANGES TO PREVIOUS DOCUMENTATION: Patient's troponin levels went up significantly overnight consistent with NSTEMI PREOP DIAGNOSIS: NSTEMI PRIMARY INDICATION FOR PROCEDURE: NSTEMI PLANNED PROCEDURE: Left heart cath with possible percutaneous coronary intervention PATIENT REASSESSED PRIOR TO SEDATION, WITH NO CHANGE NOTED: Yes PHYSICAL EXAM: alert, oriented x 3, clear to auscultation bilaterally and r egular rate & rhythm AIRWAY EVAL/ANESTHESIA PLAN: ASA III, Monitored Anesthesia, Local Anesthesia, Risks, benefits & alternatives of sedation and/or procedure discussed and Pat ient agrees to continue as planned
--- NOTE | 2021-03-27 09:13 | PM.PN ---
Subjective Subjective: Interval history: Patient underwent coronary angiogram this AM. He had severe proximal to mid RCA instent restenosis. Underwent successful revascularization with JAMSHID x1 to proximal to mid RCA. Vitals/I&O/Wt Last Vital Signs Temp 98 F 03/27/21 03:10 Pulse 71 03/27/21 06:00 Resp 24 H 03/27/21 03:10 BP 135/56 03/27/21 03:10 Pulse Ox 92 03/27/21 03:10 03/26/21 03/27/21 03/27/21 22:59 06:59 14:59 Intake Total 200 / 200 Output Total 450 / 450 400 / 850 Balance -450 / -450 -200 / -650 Weight last 48 hrs Weight 170 lb Physical Exam Narrative: EXAM NARRATIVE: GENERAL: Patient is alert, awake and oriented x3. [] NECK: No jugular vein distension. [] HEENT: No cyanosis. No icterus. No pallor. [] HEART: Regular S1 and S2. No murmur, rub or gallop. [] LUNGS: Clear to auscultate bilaterally. [] ABDOMEN: Soft, nontender and nondistended. Positive bowel sounds. No guarding, rebound or tenderness. [] CENTRAL NERVOUS SYSTEM: Grossly nonfocal. [] EXTREMITIES: Lower extremities with 1+ edema bilaterally. Pulses palpable in the lower extremities, both dorsalis pedis and posterior tibial. [] Data : 03/27/21 03:49 03/27/21 03:49 A&P Assessment and plan (1) Coronary artery disease: Status: Acute Qualifiers: Coronary Disease-Associated Artery/Lesion type: [place] artery [place] vs. transplanted heart: [place] heart Associated angina: with unspecified angina Qualified Code(s): I25.119 - Atherosclerotic heart disease of [place] coronary artery with unspecified angina pectoris (2) Chest pain: Status: Acute (3) Carotid stenosis: Status: Acute (4) Tobacco abuse: Status: Acute (5) Unstable angina: Status: Acute (6) NSTEMI (non-ST elevated myocardial infarction): Status: Acute Patient's her troponin went up significantly last night consistent with NSTEMI. Underwent angiogram this morning that showed severe proximal to mid RCA in-stent restenosis. He underwent successful revascularization with JAMSHID x1 through right radial access. Loaded with Plavix 600 mg. Continue aspirin and Plavix for now. We will hold anticoagulation at this time Echocardiogram shows normal LV systolic function with hypokinesis of inferior wall. Smoking cessation strongly recommended. Patient says he is considering it. Thank you for involving us with the care of this patient. We will continue to follow. Please call with questions. Attestations Medical Necessity Statement*: Care expected to cross 2 midnights. Coding Level of Care Code Acute Automotive Electrician for Sarah Terrazas Diagnoses Coronary artery disease I25.119 Coronary Disease-Associated Artery/Lesion type: [place] artery [place] vs. transplanted heart: [place] heart Associated angina: with unspecified angina Chest pain R07.9 Carotid stenosis I65.29 Tobacco abuse Z72.0 Unstable angina I20.0 NSTEMI (non-ST elevated myocardial infarction) I21.4
[2021-03-27] MEDS: sotalol 80 mg Tablet 120 MG PO ×2 (09:35→18:41)
[2021-03-27] MEDS: pantoprazole DR 40 mg Tablet PO ×2 (09:35→18:38)
[2021-03-27] MEDS: hyDRALAzine 50 mg Tablet PO ×3 (09:35→21:31)
[2021-03-27 10:58] LABS: Glucose Point of Care 113 mg/dL (70-110)
[2021-03-27] MEDS: TRAMadol 50 mg Tablet PO (13:03)
--- NOTE | 2021-03-27 13:05 | PC.CHAP ---
Pastoral Care Encounter/Spiritual Assessment Type of Contact [] Declined senior applications analyst visit [] Patient/Family/Request visit [] Outpatient visit [] Follow-up visit [] Physician referral [] Code/Alert [] Routine visit [] Staff referral [] Actively dying [] Patient sleeping [] Family support [] [] Out of room [] Palliative care [] [] Receiving care in room [] Pre-surgical visit [] Trauma [] Long length of stay [] ICU visit [] Other: Relational/Emotional Strength [] Patient feels connected with others/family/visitors/staff [] Distress [] Loneliness/isolation [] Abandonment Spirituality of Patient [x] Person of Jewell [x] Attends Anabaptism of their Jewell [x] Believes in Prayer [] Reads Bible or Yazdanism materials [] There are Spiritual issues to be addressed Psychologist Private Practice 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 [x] Prayer [] Active listening [] Non-anxious presence [] Spiritual/emotional support [] Crisis/trauma care [] Spiritual counseling [] Bereavement support [] Provided bereavement packet [] Provided Bible/devotional materials [] Provided toy/stuffed animal, coloring book to patient or family member [] Provided Communion [] Anointing/[place] [] Salvation [] Completed spiritual assessment [] Other: Impact on Illness or Injury [] Angry [] Fearful [] Anxious [] Often cries [] Exhaustion [] Unable to work [] Unable to attend evangelical [] Unable to walk/stand [] Unable to read [] Unable to drive [] Unable to eat/drink [] Unable to sleep [] Unable to be with family [] Patient intubated [] Other: Summary Time spent with patient
--- NOTE | 2021-03-27 14:49 | PM.PN ---
Subjective Subjective: Interval history: Reports some mild chest pain Status post coronary angiogram this morning had drug-eluting stent placed to proximal and mid RCA Right wrist incision site stable no active sites of bleeding Vitals/I&O/Wt Last Vital Signs Temp 97.7 F 03/27/21 14:36 Pulse 67 03/27/21 14:36 Resp 26 H 03/27/21 14:36 BP 135/54 03/27/21 14:36 Pulse Ox 96 03/27/21 14:36 03/26/21 03/27/21 03/27/21 22:59 06:59 14:59 Intake Total 200 / 200 Output Total 450 / 450 400 / 850 Balance -450 / -450 -200 / -650 Weight last 48 hrs Weight 170 lb Physical Exam Const: COMMON NORMALS: no acute distress and no limitations Eye: COMMON NORMALS: Equal, round and reactive pupils present PUPIL: Yes Equal, round and reactive pupils present Neck/C-Spine: COMMON NORMALS: no JVD Resp: COMMON NORMALS: normal respiratory effort and No retractions Cardio: COMMON NORMALS: no JVD and regular rate RATE: regular rate GI: COMMON NORMALS: Soft to palpation and non-tender PALPATION: Yes Soft to palpation Extremity: COMMON NORMALS: normal to inspection and full ROM OTHER: right wrist no bleeding Data : 03/27/21 03:49 03/27/21 03:49 A&P Assessment and plan (1) NSTEMI (non-ST elevated myocardial infarction): Status: Acute (2) Afib: Status: Acute Qualifiers: Atrial fibrillation type: unspecified chronic Qualified Code(s): I48.20 - Chronic atrial fibrillation, unspecified (3) Bladder cancer: Status: Acute Qualifiers: Bladder location: posterior wall Qualified Code(s): 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 (4) Tobacco abuse: Status: Acute Additional A&P Information #NSTEMI --s/p cardiac cath with JAMSHID to RCA --continue lipitor, plavix, asa #tobacco abuse --counseled #AFIB --rate controlled --sotalol #HTN -stable -norvasc, sotalol Attestations Medical Necessity Statement*: Ashvin Hickey's hospital stay will require greater than 2 midnights for chest pain Coding Level of Care Code Acute Training Assistant for [facility] Fwd Diagnoses NSTEMI (non-ST elevated myocardial infarction) I21.4 Afib I48.20 Atrial fibrillation type: unspecified chronic Bladder cancer C67.4 Bladder location: posterior wall Tobacco abuse Z72.0
[2021-03-27 17:08] LABS: Glucose Point of Care 216 mg/dL (70-110)
--- NOTE | 2021-03-27 18:34 | USCV_ITS ---
Edelmira Ashvin Age: 75 Gender: M : 1945 Exam Date: 03/27/2021 06:23 Ordering Phys: Casey Marin MD Technologist: Nikole Domingo Exam Location: [facility] [place] Indication: SWELLING OF LEGS HISTORY: Swelling of legs PROCEDURES: The venous duplex Doppler examination of both lower extremities was performed in the standard fashion. The following venous structures were evaluated: common femoral vein, profunda vein, proximal portion of the greater saphenous vein, superficial femoral vein, and the popliteal vein. In addition, the posterior tibial and peroneal trunk were evaluated. Serial compression, augmentation maneuvers, and spectral Doppler flow evaluation were performed. FINDINGS: Normal 2-D Doppler and augmentation and compressibility throughout the lower extremity venous structures. Additional imaging through the proximal calf veins also reveals no thrombus. Limited evaluation of the greater saphenous vein is patent with no thrombus.. CONCLUSIONS No evidence of DVT in the above-mentioned identifiable veins. Dr Gloria Lucas MD [facility] (Electronically Signed) Final Date: 27 March 2021 09:32 S
--- NOTE | 2021-03-27 18:34 | USCV_ITS ---
Ashvin Hickey Age: 75 Gender: M : 1945 Exam Date: 03/27/2021 06:08 Ordering Phys: Casey Marin MD Technologist: Nikole Domingo [place] [facility] [place]: CHEST PAIN WITH RECENT STENT PLACEMENT BP: 135 / 56 HR: 72 Rhythm: Sinus Technical Quality: Adequate MEASUREMENTS (Male / Female) Normal Values 2D ECHO LV Diastolic Diameter PLAX 4.5 cm 4.2 - 5.9 / 3.9 - 5.3 cm LV Systolic Diameter PLAX 2.8 cm LV Chamber Size 4.2 cm IVS Diastolic Thickness 1.3 cm 0.6 - 1.0 / 0.6 - 0.9 cm IVS Systolic Thickness 1.9 cm LVPW Diastolic Thickness 1.8 cm 0.6 - 1.0 / 0.6 - 0.9 cm LVPW Systolic Thickness 2.4 cm RV Chamber Size 3.8 cm LVOT Diameter 2.0 cm LV Ejection Fraction 2D Teich 67.1 % LV Ejection Fraction MOD 2C 58.6 % LV Ejection Fraction 2C AL 59.8 % LA Diameter 3.9 cm LA Width 3.2 cm LA Height 4.4 cm RA Width 4.1 cm RA Height 4.8 cm Aorta at Sinotubular Diameter 3.1 cm M-MODE LV Diastolic Diameter MM 5.3 cm 4.2 - 5.9 / 3.9 - 5.3 cm LV Systolic Diameter MM 3.4 cm LV Ejection Fraction MM Teich 63.9 % IVS Diastolic Thickness MM 1.0 cm 0.6 - 1.0 / 0.6 - 0.9 cm IVS Systolic Thickness MM 1.4 cm LVPW Diastolic Thickness MM 1.0 cm 0.6 - 1.0 / 0.6 - 0.9 cm LVPW Systolic Thickness MM 1.6 cm Aortic Annulus Diameter 4.2 cm LA Ao Ratio MM 1.1 MV E Point Septal Separation 0.4 cm FINDINGS Left Ventricle Normal left ventricular size and systolic function, EF 60 %. Moderate left ventricular hypertrophy. Hypokinetic basal inferior wall segment Right Ventricle The right ventricle is normal in size and function. Right Atrium The right atrium is normal in size. Left Atrium Mildly increased left atrial size. Mitral Valve No gross abnormalities noted Aortic Valve Thickened aortic valve. Tricuspid Valve No gross abnormalities noted Pulmonic Valve Pulmonic valve not well visualized. Pericardium Normal pericardium without effusion. Aorta Normal ascending aorta dimension. CONCLUSIONS Limited 2D echo Normal left ventricular size and systolic function, EF 60 %. Mild to Moderate left ventricular hypertrophy. Hypokinetic basal inferior wall segment. Mildly increased left atrial size. Thickened aortic valve. There is no pericardial effusion. There are no intracardiac masses. Compared to the study from 02/08/2018, the wall motion abnormality appears to be new Dr Gloria Lucas MD [facility] (Electronically Signed) Final Date: 27 March 2021 09:29 S
[2021-03-27] MEDS: atorvastatin 40 mg Tablet 20 MG PO (18:38)
[2021-03-27] MEDS: tamsulosin 0.4 mg Capsule PO (18:38)
[2021-03-27] MEDS: losartan 50 mg Tablet 100 MG PO (18:39)
[2021-03-27] MEDS: aspirin 81 mg EC Tablet PO (18:39)
[2021-03-27] MEDS: insulin glargine 100 units/1 mL 20 UNIT SUBCUT (18:53)
[2021-03-27 20:58] LABS: Glucose Point of Care 264 mg/dL (70-110)
[2021-03-28 03:31] VITALS: BP 126/51; PULSE 66; RESP 14; TEMP 36.6; O2SAT 92
[2021-03-28] MEDS: alum-mag-hydroxide-sime 30 mL UDC PO (03:41)
[2021-03-28] MEDS: amlodipine 10 mg Tablet PO (05:15)
[2021-03-28] MEDS: ferrous sulfate EC 325 mg Tablet PO (05:15)
[2021-03-28] MEDS: duloxetine 20 mg Capsule PO (05:15)
[2021-03-28 05:18] LABS: Basophils # 0.1 10^3/uL (0.0-0.1); Basophils % 0.6 %; Eosinophils # 0.4 10^3/uL (0.0-0.8); Eosinophils % 3.4 %; Hemoglobin 8.4 g/dL (11.7-16.6); Lymphocytes # 1.7 10^3/uL (0.8-4.8); Lymphocytes % 13.7 %; Mean Corpuscular HGB Conc 31.1 g/dL (30.0-36.0); Mean Corpuscular Hemoglobin 27.2 pg (28.0-34.0); Mean Corpuscular Volume 87.4 fL (80-94); Mean Platelet Volume 9.5 fL (7.4-10.4); Monocytes # 1.3 10^3/uL (0.2-0.9); Neutrophils # 8.61 10^3/uL (1.8-7.7); Neutrophils % 70.9 %; Nucleated Red Blood Cells % 0 %; Platelet Count 384 10^3/cmm (130-400); Red Blood Count 3.09 10^6/uL (4.1-5.3); Red Cell Distribution Width 15.6 % (12.1-15.1); White Blood Count 12.2 10^3/uL (4.0-10.0)
[2021-03-28 05:37] LABS: Alanine Aminotransferase < 5 U/L (0-41); Alkaline Phosphatase 63 IU/L (40-130); Anion Gap 13.2 (5-19); Aspartate Amino Transferase 8 U/L (0-40); Blood Urea Nitrogen 22 mg/dL (8-23); Calcium 7.9 mg/dL (8.5-10.5); Carbon Dioxide 24 mmol/L (22-29); Chloride 106 mmol/L (98-107); Globulin 2.9 g/dL (1.3-4.6); Glucose 69 mg/dL (65-115); Osmolality Calculated 292 mOsm/kg (285-295); Potassium 3.2 mmol/L (3.5-5.1); Sodium 140 mmol/L (136-145); Total Bilirubin 0.3 mg/dL (0.15-1.2); Total Protein 5.9 g/dL (6.6-8.7)
[2021-03-28 05:56] VITALS: PULSE 61
[2021-03-28 06:34] LABS: Glucose Point of Care 103 mg/dL (70-110)
[2021-03-28 07:16] VITALS: BP 140/60; PULSE 71; RESP 15; TEMP 36.6; O2SAT 95
[2021-03-28 08:55] VITALS: BP 140/60; PULSE 74; RESP 15; TEMP 36.6; O2SAT 95
--- NOTE | 2021-03-28 09:38 | P.PN_ITS ---
Subjective Subjective: Interval history: Patient is doing well. Underwent successful revascularization of the RCA yesterday. No chest pain, shortness of breath or palpitations. Vitals/I&O/Wt Last Vital Signs Temp 97.9 F 03/28/21 08:55 Pulse 74 03/28/21 08:55 Resp 15 03/28/21 08:55 BP 140/60 03/28/21 08:55 Pulse Ox 95 03/28/21 08:55 03/27/21 03/28/21 03/28/21 22:59 06:59 14:59 Intake Total 977 / 1217 220 / 1437 240 / 240 Output Total 420 / 420 250 / 670 200 / 200 Balance 557 / 797 -30 / 767 40 / 40 Weight last 48 hrs Weight 186 lb Weight 187 lb 6.4 oz Weight 170 lb Physical Exam Narrative: EXAM NARRATIVE: GENERAL: Patient is alert, awake and oriented x3. [] NECK: No jugular vein distension. [] HEENT: No cyanosis. No icterus. No pallor. [] HEART: Regular S1 and S2. No murmur, rub or gallop. [] LUNGS: Clear to auscultate bilaterally. [] ABDOMEN: Soft, nontender and nondistended. Positive bowel sounds. No guarding, rebound or tenderness. [] CENTRAL NERVOUS SYSTEM: Grossly nonfocal. [] EXTREMITIES: Lower extremities with 1+ edema bilaterally. Pulses palpable in the lower extremities, both dorsalis pedis and posterior tibial. [] Data : 03/28/21 04:12 03/28/21 04:12 A&P Assessment and plan (1) Coronary artery disease: Status: Acute Qualifiers: Coronary Disease-Associated Artery/Lesion type: [place] artery [place] vs. transplanted heart: [place] heart Associated angina: with unspecified angina Qualified Code(s): I25.119 - Atherosclerotic heart disease of [place] coronary artery with unspecified angina pectoris (2) Chest pain: Status: Resolved (3) Carotid stenosis: (4) Tobacco abuse: (5) Unstable angina: Status: Resolved (6) NSTEMI (non-ST elevated myocardial infarction): Status: Resolved Patient underwent angiogram yesterday that showed severe proximal to mid RCA in-stent restenosis. He underwent successful revascularization with JAMSHID x1 through right radial access. Continue aspirin and Plavix for now. We will hold anticoagulation at this time. May restart as outpatient. Echocardiogram shows normal LV systolic function with hypokinesis of inferior wall. Smoking cessation strongly recommended. Patient says he is considering it. Thank you for involving us with the care of this patient. Patient is stable to be discharged from cardiology standpoint. Can follow-up with us in 7 to 10 days. Please call with questions. Attestations Medical Necessity Statement*: Care expected to cross 2 midnights. Coding Level of Care Code Acute Sales Expert Home Theater for Sarah Terrazas Diagnoses Coronary artery disease I25.119 Coronary Disease-Associated Artery/Lesion type: [place] artery [place] vs. transplanted heart: [place] heart Associated angina: with unspecified angina Chest pain R07.9 Carotid stenosis I65.29 Tobacco abuse Z72.0 Unstable angina I20.0 NSTEMI (non-ST elevated myocardial infarction) I21.4
[2021-03-28] MEDS: clopidogrel 75 mg Tablet PO (09:44)
[2021-03-28] MEDS: hyDRALAzine 50 mg Tablet PO (09:44)
[2021-03-28] MEDS: sotalol 80 mg Tablet 120 MG PO (09:44)
[2021-03-28] MEDS: pantoprazole DR 40 mg Tablet PO (09:44)
--- NOTE | 2021-03-28 10:00 | PC.NURSE ---
Patient waiting on to arrive for transport home.
--- NOTE | 2021-03-28 11:15 | PM.DCS ---
Discharge Providers Date of Admission: 03/26/21 16:21 Date of Discharge: 03/28/21 Attending Provider at Admission: Casey Marin Attending Provider at Discharge: Arash Espinoza MD Primary Care Provider: Bree Perkins MD Diagnoses at Discharge Discharge Diagnosis (1) Coronary artery disease: Status: Acute Qualifiers: Coronary Disease-Associated Artery/Lesion type: [place] artery [place] vs. transplanted heart: [place] heart Associated angina: with unspecified angina Qualified Code(s): I25.119 - Atherosclerotic heart disease of [place] coronary artery with unspecified angina pectoris (2) Chest pain: Status: Resolved (3) Carotid stenosis: (4) Tobacco abuse: (5) Unstable angina: Status: Resolved (6) NSTEMI (non-ST elevated myocardial infarction): Status: Resolved Reason for Visit Reason for Visit: MELODY HANEY Hospital Course Hospital Course Is a 75-year-old male with history of coronary disease, status post banding x3, peripheral arterial disease status post femoral-popliteal bypass, abdominal aortic aneurysm, cardiac stenosis, tobacco use, atrial fibrillation, who presented with chest discomfort. He was noted to have elevated troponins. He was admitted for chest pain rule out. Also concern for acute diastolic heart failure and is noted also he had history of bladder cancer following with urology. Patient underwent coronary angiogram this AM. He had severe proximal to mid RCA instent restenosis. Underwent successful revascularization with JAMSHID x1 to proximal to mid RCA. He was observed in the hospital. Chronic conditions including A. fib, hypertension were treated. He was discharged stable condition see discharge med rec. recommend follow-up with PCP and cardiology Physical Exam Const: COMMON NORMALS: no acute distress and patient oriented x3 GENERAL APPEARANCE: well kempt Neck/C-Spine: COMMON NORMALS: no JVD Resp: COMMON NORMALS: normal respiratory effort and No retractions Cardio: COMMON NORMALS: no JVD and regular rate RATE: regular rate GI: COMMON NORMALS: Normal to inspection, nondistended, normoactive bowel sounds present and Soft to palpation PALPATION: Yes Soft to palpation Neuro: COMMON NORMALS: patient oriented x3 and CN's II-XII intact bilaterally Psych: APPEARANCE: Yes grossly normal and Yes well kempt Discharge Data Data Completed and Pending: Completed Studies During Hospitalization Category Date Time Status CT angio chest PE protcl [id number] Stat Cat Scan 03/26/21 13:56 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 echo limited [id number] Routine Ultrasound 03/27/21 18:34 Completed Vitals: Last Vital Signs Temp 97.9 F 03/28/21 08:55 Pulse 74 03/28/21 08:55 Resp 15 03/28/21 08:55 BP 140/60 03/28/21 08:55 Pulse Ox 95 03/28/21 08:55 Discharge Plan Discharge Patient Disposition: Home Condition: Stable Prescriptions: Continued duloxetine [Cymbalta] 20 mg capsule,delayed release(DR/EC) 20 mg PO QAM RF: 0 sucralfate 1 gram tablet 1 g PO QID PRN (Reason: UNKNOWN) RF: 0 amlodipine 10 mg tablet 10 mg PO QAM RF: 0 ferrous sulfate 325 mg (65 mg iron) tablet 325 mg PO QAM RF: 0 pantoprazole 40 mg tablet,delayed release (DR/EC) 40 mg PO BID RF: 0 chlorthalidone 25 mg tablet 25 mg PO QAM RF: 0 insulin aspart U-100 [Novolog Flexpen U-100 Insulin] 100 unit/mL (3 mL) insulin pen See Rx Instructions SUBCUT TID 90 Days Qty: 15 RF: 2 Lantus Solostar U-100 Insulin 100 unit/mL (3 mL) insulin pen 40 unit SUBCUT QPM Qty: 15 RF: 1 hydralazine 50 mg tablet 50 mg PO TID Qty: 270 RF: 3 tizanidine 4 mg tablet 4 mg PO Q8H PRN (Reason: Muscle Spasm) RF: 0 tramadol 50 mg tablet 50 mg PO QID PRN (Reason: Pain) RF: 0 clopidogrel 75 mg tablet 75 mg PO DAILY RF: 0 Hold Instructions: Resume on 03/16/21. simvastatin 20 mg tablet 20 mg PO QPM RF: 0 losartan 100 mg tablet 100 mg PO QPM RF: 0 aspirin 81 mg Tablet,Delayed Release (Dr/Ec) 81 mg PO QPM RF: 0 tamsulosin 0.4 mg capsule 0.4 mg PO QPM RF: 0 Nitrostat 0.4 mg Tablet, Sublingual 0.4 mg SUBLINGUAL Q5M PRN (Reason: Chest Pain) RF: 0 sotalol 80 mg tablet 120 mg PO BID RF: 0 Held Xarelto 20 mg tablet 20 mg PO DAILY RF: 0 Hold Instructions: Resume on 03/16/21. metformin 500 mg tablet 500 mg PO BID Qty: 180 RF: 0 Hold Instructions: Resume on 03/30/21. Discharge Orders: Discharge Order (Routine); Ordered 03/28/21 Ordered By: Arash Espinoza Referrals: Art Mays M.D [Physician] - 2 weeks (You have an appointment with Dr. Mays on April 24, 2021 at 12:30pm.) Ginna Barnes FNP [Nurse Practitioner] - 1 week (You have an appointment with Ginna NICOLAS on April 03 at 11:00 am.) Discharge Diet: Cardiac Discharge Activity: Increase activity as tolerated Patient Instructions: Left Heart Catheterization (DC), Coronary Intravascular Stent Placement (DC), Opioid Safety Discharge Attestations Time Spent in Discharge Care*: less than 30 min Status at Discharge: Cognitive status at discharge: cognitively intact, Behavioral status at discharge: cooperative, Quality Metrics Clinical Quality Measures During this hospital stay, did patient experience: AMI Clinical Trial Participant: No Contraindication to aspirin (AMI): Other Contraindication to statin: Other Coding Level of Care Code Acute g FW DC note Diagnoses Coronary artery disease I25.119 Coronary Disease-Associated Artery/Lesion type: [place] artery [place] vs. transplanted heart: [place] heart Associated angina: with unspecified angina Chest pain R07.9 Carotid stenosis I65.29 Tobacco abuse Z72.0 Unstable angina I20.0 NSTEMI (non-ST elevated myocardial infarction) I21.4
== END 2021-03-28 10:00 | disposition home or self-care (01) | DRG 246 ==
LOC: ER 16:37 → CSU 16:51
PROVIDERS: Internal Medicine; Admitting Provider Internal Medicine; Emergency Provider Family Medicine; PCP Family Medicine; Visit Provider Internal Medicine
PROC: 027034Z Dilation of Coronary Artery, One Artery with Drug-eluting Intraluminal Device, Percutaneous Approach (ICD-10-PCS; principal; 2021-03-27 07:00)
PROC: 027034Z Dilation of Coronary Artery, One Artery with Drug-eluting Intraluminal Device, Percutaneous Approach (ICD-10-PCS; 2021-03-27 07:00)
DX: T82.855A Stenosis of coronary artery stent, initial encounter (principal); I21.4 Non-ST elevation (NSTEMI) myocardial infarction; I50.31 Acute diastolic (congestive) heart failure; I48.20 Chronic atrial fibrillation, unspecified; I25.110 Atherosclerotic heart disease of native coronary artery with unstable angina pectoris; Y71.1 Therapeutic (nonsurgical) and rehabilitative cardiovascular devices associated with adverse incidents; Z98.890 Other specified postprocedural states; F17.210 Nicotine dependence, cigarettes, uncomplicated; J44.9 Chronic obstructive pulmonary disease, unspecified; E11.42 Type 2 diabetes mellitus with diabetic polyneuropathy; E11.51 Type 2 diabetes mellitus with diabetic peripheral angiopathy without gangrene; I11.0 Hypertensive heart disease with heart failure; E78.5 Hyperlipidemia, unspecified; C67.4 Malignant neoplasm of posterior wall of bladder; N52.9 Male erectile dysfunction, unspecified; E78.1 Pure hyperglyceridemia; E88.81 Metabolic syndrome and other insulin resistance
CPT/HCPCS: 36415; 36416; 71045; 71275; 80053; 82962; 83690; 83880; 84484; 85025; 85378; 85610; 93005; 93308; 93452; 93970; 94664; 96372; 96374; 96375; 99285; C1725; C1769; C1874; C1887; C1894; C9600; J1644; J1815 ×2; J1940; J2250; J2270; J2405; J3010; J3490; J7030; Q0163; Q9967

== ENCOUNTER → 2021-04-03 11:57 | Outpatient (BNVA) | payer MEDICARE, SELFPAY | PROVIDERS: PCP Family Medicine; Visit Provider Nurse Practitioner Family | DX: I25.119 Atherosclerotic heart disease of native coronary artery with unspecified angina pectoris (principal) | CPT/HCPCS: 80048 ==

== ENCOUNTER → 2021-06-19 09:21 | Outpatient (BNVA) | payer MEDICARE, BC, SELFPAY | PROVIDERS: PCP Family Medicine; Visit Provider Urology | DX: N40.1 Benign prostatic hyperplasia with lower urinary tract symptoms (principal); C67.9 Malignant neoplasm of bladder, unspecified; C67.4 Malignant neoplasm of posterior wall of bladder; Z79.01 Long term (current) use of anticoagulants; Z98.890 Other specified postprocedural states | CPT/HCPCS: 81003 ==

== ENCOUNTER → 2021-07-12 15:26 | Outpatient (BNVA) | payer MEDICARE, BC, SELFPAY | PROVIDERS: PCP Family Medicine; Visit Provider Urology | DX: N40.1 Benign prostatic hyperplasia with lower urinary tract symptoms (principal); C67.4 Malignant neoplasm of posterior wall of bladder; Z20.822 Contact with and (suspected) exposure to COVID-19 | CPT/HCPCS: 81003; 87635 ==

== ENCOUNTER 2021-07-17 16:30 | Observation (INO) | payer MEDICARE, BC, SELFPAY ==
[2021-07-14 13:17] VITALS: BMI 27.0
[2021-07-17] VITALS (18 sets, daily range): BP systolic 82–138; BP diastolic 36–74; PULSE 50–67; RESP 13–23; TEMP 36.1–36.5; O2SAT 90–100
--- NOTE | 2021-07-17 12:00 | ANES.PREANE2 ---
Pre-Anesthetic Assessment Pre-Anesthetic Assessment: Height/Weight: Height 1.73 m Weight 80.739 kg Temp Pulse Resp BP Pulse Ox 97.7 F 62 18 138/74 99 07/17/21 11:35 07/17/21 11:35 07/17/21 11:35 07/17/21 11:35 07/17/21 11:35 Preop Diagnosis: Recurrent bladder cancer Proposed Procedure: Operation Date: 07/17/21 12:00 Proposed Procedures p Transurethral Resection Bladder Tumor 42193 C67.9(Not Applicable) - Alli Corral MD s Cystoscopy(Not Applicable) - Alli Corral MD Was Beta Alissa taken within 24 hours: N/A Was Clonidine taken within 24 hours: N/A Last intake: Intake Last Liquid Date 07/17/21 Last Liquid Time 08:00 Last Solid Date 07/16/21 Last Solid Time 17:00 Social: Social History: Tobacco and No alcohol Packs per day: 1 Exam: Pre-Anes Outpt Exam: alert and oriented x 3 Airway: Submandibular: WNL Cervical ROM: WNL MP: 3 Dentition: Partials History/ROS: No significant history except as noted CV/HEM: CV/HEM: Arrythmia (afib) and HTN : : None reported Hepatic: Hepatic: None reported GI: GI: GERD (controlled) Metabolic: Metabolic: DM Musc/skel: Musc/skel: None reported Neuropsych: Neuropsych: None reported Anesthetic Plan: ASA status: 3 Anesthesia: Anesthesia Evaluation and General Risk of > 500 ml blood loss (7ml/kg in children): No PFSH Anesthesia PFSH: Medical History (Updated 07/16/21 @ 07:44 by Alli Corral MD) Abdominal aortic aneurysm (AAA) Afib Anticoagulation adequate with anticoagulant therapy Atrial fibrillation with RVR Patient converted to normal sinus rhythm with home dose of sotalol. Bladder cancer Papillary lesion appears well differentiated diagnosed 11/29/2020. Recurrence , BPH loc w urin obs/LUTS Started on TAMSULOSIN March 2021 for chronic BPH symptoms Carotid stenosis COPD (chronic obstructive pulmonary disease) Coronary artery disease Diabetes mellitus Diabetic neuropathy Erectile dysfunction HTN (hypertension), benign Hypertriglyceridemia Peripheral arterial disease Proteinuria Tobacco abuse Surgical History H/O heart artery stent History of abdominal aortic aneurysm (AAA) repair History of bladder surgery History of carotid endarterectomy Hx of appendectomy Previous back surgery S/P femoral-popliteal bypass surgery S/P right coronary artery (RCA) stent placement hx of Distal RCA and Prox RCA Family History (Updated 07/12/21 @ 14:26 by Ginna Flores LPN) Father , in his 80's Stroke Mother , at age 83 Diabetes Social History (Updated 07/12/21 @ 14:27 by Ginna Flores LPN) Alcohol intake: never Household members: spouse Marital status: service: Yes branch: [employer] Current occupational status: retired History of recent travel: No Data Anesthesia Cardiac Studies: No Data to Display
--- NOTE | 2021-07-17 12:02 | P.HPUD_ITS ---
Surgery/Procedure H&P Update DATE OF PROCEDURE: July 17, 2021 DATE H&P PERFORMED: 07/12/21 H&P UPDATE INFORMATION: I have reviewed H&P completed within last 30 days, I have examined patient prior to procedure, No changes to prior documentation and H&P is in [facility] EMR on date indicated PREOP DIAGNOSIS: Recurrent bladder cancer PLANNED PROCEDURE: Operation Date: 07/17/21 12:00 Proposed Procedures p Transurethral Resection Bladder Tumor 02246 C67.9(Not Applicable) - Alli Corral MD s Cystoscopy(Not Applicable) - Alli Corral MD
[2021-07-17 12:27] LABS: Glucose Point of Care 141 mg/dL (70-110)
[2021-07-17] MEDS: sodium chloride 0.9% 1,000 ML 30 ML IV ×2 (12:30→19:07)
[2021-07-17] MEDS: levofloxacin-dextrose 5 % 500 MG/100 ML PREMIX 100 MG IV (12:35)
[2021-07-17] MEDS: lidocaine 2% Urojet 20 mL TOPICAL (13:05)
--- NOTE | 2021-07-17 13:45 | P.OP_ITS ---
Operative Report Date of procedure: July 17, 2021 Pre-op Diagnosis: Recurrent bladder cancer Post-op Diagnosis: Recurrent bladder cancer Post-op Findings: Multiple papillary tumors that appear to be well differentiated on all surfaces of the bladder wall lateral bilaterally, posterior floor, anterior bladder wall and dome. One by one these were resected/fulgurated and at completion of the procedure no residual tumors were identified. Procedure Done: Cystoscopy, transurethral resection/fulguration of bladder tumor large Specimens removed/disposition: Posterior floor and left lateral wall bladder tumors Pathology: Posterior floor left lateral wall bladder tumor Surgeon: Ellis Anesthesia: General Estimated blood loss: Less than 10 cc Urine output: None not measured Complications: None Findings: See above Condition: stable Disposition: PACU Brief History: Mr. Hickey is a very pleasant 76-year-old white male with a history of bladder cancer, papillary noninvasive with prolific recurrence. Recent surveillance cystoscopy showed Multiple small recurrences in the bladder 2 months after his cystoscopy transurethral resection of bladder tumor in March 2021 Procedure: After routine preoperative evaluation examination and obtaining of informed consent he was taken to the operating suite on 07/17/2021 where general anesthesia was administered without difficulty after appropriate timeout was performed, SCDs confirmed to be functioning, preoperative notes administered, beta-reji protocol confirmed. Prepped and draped in usual sterile fashion in dorsolithotomy position paying careful attention to avoiding pressure points. 21 [place] cystoscope with 30 degree lens was introduced to the well-lubricated urethra advanced into the bladder to videoscopy. The bladder was systematically examined in both 70 and 30 degree lenses. There were multiple areas of small papillary tumors involving essentially all the surface locations of the bladder including anterior bilateral lateral posterior floor and bladder neck. The cold cup biopsy forceps were used to resect multiple of these areas probably greater than 15 and then the Bugbee cautery probe was utilized to fulgurate the remaining of them. Multiple exchange of 30 and 70 degree lens scopes were utilized to carefully identify all of the tumors. On the final inspection with the 30 and 70 degree lens no residual tumors were identified. Both orifices were uninvolved in the resection/fulguration. The bladder was flushed with several rounds of sterile water and the procedure was completed with drainage of the bladder via a 20 [place] catheter, three-way with plug placed in the irrigation port. Tolerated the procedure well without complications and was awakened in the operating room and returned to the recovery room in stable condition. PLANS: 1. Anticipate discharge tomorrow after observation status tonight. 2. We will plan on restarting his anticoagulation very soon given his high risk coronary artery disease.
--- NOTE | 2021-07-17 14:11 | PC.NURSE ---
3 way catheter flushed with 100 mL of sterile saline. Return after flushing catheter was clear in color and 100 mLs returned.
--- NOTE | 2021-07-17 14:17 | PC.NURSE ---
Patient came out of the OR with [address] at the right hand. IV was not documented by OR staff. IV patent.
[2021-07-17 15:36] LABS: Glucose Point of Care 175 mg/dL (70-110)
--- NOTE | 2021-07-17 15:46 | PC.NURSE ---
Catheter had no drainage after being emptied at 1450. Catheter flushed with 100 mL of sterile saline solution. Catheter then emptied and a total of 150 mL of urine output.
[2021-07-17 18:02] LABS: Glucose Point of Care 354 mg/dL (70-110)
[2021-07-17] MEDS: metformin 500 mg Tablet PO (18:34)
[2021-07-17] MEDS: hyDRALAzine 50 mg Tablet PO (18:35)
[2021-07-17] MEDS: losartan 50 mg Tablet 100 MG PO (18:35)
[2021-07-17] MEDS: pantoprazole DR 40 mg Tablet PO (18:36)
[2021-07-17] MEDS: atorvastatin 40 mg Tablet 20 MG PO (18:36)
[2021-07-17] MEDS: insulin glargine 100 units/1 mL 40 UNIT SUBCUT (19:45)
--- NOTE | 2021-07-17 20:17 | PC.NURSE ---
i reported low temp 97.5 to nurse
[2021-07-17 20:34] LABS: Glucose Point of Care 382 mg/dL (70-110)
--- NOTE | 2021-07-18 05:08 | PC.NURSE ---
SHIFT SUMMARY Has had a good night without c/ pain. Denies any lower abd/suprapubic tenderness. Meléndez has drained clear urine with occ very light pink tinge. Has not required any manual irrigation. IV fluids infusing at 30ml/hr rate and is taking po fluids well. Did not sleep much. Awake until late watching TV
[2021-07-18] MEDS: chlorthalidone 25 mg Tablet PO (05:39)
[2021-07-18] MEDS: amlodipine 10 mg Tablet PO (05:39)
[2021-07-18] MEDS: ferrous sulfate EC 325 mg Tablet PO (05:39)
[2021-07-18] MEDS: duloxetine 20 mg Capsule PO (05:39)
[2021-07-18 06:35] LABS: Glucose Point of Care 321 mg/dL (70-110)
--- NOTE | 2021-07-18 07:49 | PC.NURSE ---
DR RACHNA BRISCOE AT SIDE INJECTING MITOMYCIN INTO CATHETER - TIFFANY WELL - CLAMPED PER
--- NOTE | 2021-07-18 07:54 | P.DS_ITS ---
Discharge Providers Date of Admission: 07/17/21 16:30 Date of Discharge: July 18, 2021 Attending Provider at Admission: Alli Corral MD Attending Provider at Discharge: Alli Corral MD Primary Care Provider: Bree Perkins MD Diagnoses at Discharge Discharge Diagnosis (1) Bladder cancer: Status: Acute Permanent problem details: Low-grade noninvasive TCCA with prolific recurrence. Qualifiers: Bladder location: overlapping sites Qualified Code(s): C67.8 - Malignant neoplasm of overlapping sites of bladder (2) Coronary artery disease: Status: Acute Qualifiers: Coronary Disease-Associated Artery/Lesion type: [place] artery [place] vs. 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 Was found to have greater than 30 recurrences within the bladder. About half were resected and the other half fulgurated. All of them appear to be well differentiated and noninvasive. At the completion of the procedure hemostasis was excellent and no remaining tumors were identified. Postoperatively he did well. Had some indigestion and was treated with Carafate which he uses at home. Underwent mitomycin installation without difficulty. It was held for an hour and then drained. After confirmation of maintenance of clear urine he was discharged with Meléndez catheter in place for plan of voiding trial on 07/21/2021. We will review reinitiation of his anticoagulants at that visit. He is at high risk of bleeding on anticoagulants given that multiple sites resected. He also has a fairly brittle history of coronary artery disease. Discharged in stable condition. PROCEDURE NOTE MITOMYCIN intravesical instillation. 40 mg of mitomycin instilled atraumatically into the bladder without difficulty. Catheter was occluded for 1 hour and then drained. Urine remained clear. Tolerated the procedure well. Physical Exam Const: COMMON NORMALS: no acute distress, alert and well nourished GENERAL APPEARANCE: well kempt and well developed ORIENTATION/CONSCIOUSNESS: not confused Eye: COMMON NORMALS: conjunctivae normal and no scleral icterus CONJUNCTIVA: Yes conjunctivae normal Neck/C-Spine: COMMON NORMALS: full ROM Resp: COMMON NORMALS: normal respiratory effort EFFORT & INSPECTION: No labored and No Actively coughing GI: COMMON NORMALS: Soft to palpation PALPATION: Yes Soft to palpation and No Tenderness to palpation present (GI) : MALE GROIN/PERINEUM EXAM: No ecchymosis PENIS: normal penis MEATUS: meatus normal, no meatla discharge and No Blood at meatus present SCROTUM: Yes testes descended bilaterally, No edematous and No scrotal swelling Neuro: COMMON NORMALS: no focal motor deficits SENSORIUM/ORIENTATION: Yes alert Psych: COMMON NORMALS: mental status grossly normal APPEARANCE: Yes grossly normal and Yes well kempt ATTITUDE: Yes calm and Yes engaged Skin: COMMON NORMALS: no rashes or lesions noted and no jaundice GENERAL SKIN EXAM: no rashes or lesions noted Urinary Catheter Management^: 3-way Urethral CBI: Cath Placed During This Visit: yes Reason for Continuing Indwelling Catheter: Other Urinary Catheter Date of Insertion: 07/17/21 Urinary Catheter Time of Insertion: 13:43 Discharge Data Data Completed and Pending: Pending at discharge Category Date Time Status Pathology: Surgic al [PTH] Routine Pth 07/17/21 13:47 Received Labs from last 24 hours 07/18/21 07/17/21 07/17/21 06:33 20:28 17:58 POC Glucose 321 H 382 H 354 H 07/17/21 07/17/21 15:31 12:12 POC Glucose 175 H 141 H Vitals: Last Vital Signs Temp 97.5 F L 07/17/21 20:17 Pulse 67 07/17/21 20:17 Resp 16 07/17/21 20:17 BP 130/51 07/17/21 20:17 Pulse Ox 90 07/17/21 20:17 Discharge Plan Discharge Patient Disposition: Home Condition: Stable Prescriptions: Continued duloxetine [Cymbalta] 20 mg capsule,delayed release(DR/EC) 20 mg PO QAM RF: 0 sucralfate 1 gram tablet 1 g PO QID PRN (Reason: UNKNOWN) RF: 0 amlodipine 10 mg tablet 10 mg PO QAM RF: 0 ferrous sulfate 325 mg (65 mg iron) tablet 325 mg PO QAM RF: 0 pantoprazole 40 mg tablet,delayed release (DR/EC) 40 mg PO BID RF: 0 chlorthalidone 25 mg tablet 25 mg PO QAM RF: 0 insulin aspart U-100 [Novolog Flexpen U-100 Insulin] 100 unit/mL (3 mL) insulin pen See Rx Instructions SUBCUT TID 90 Days Qty: 15 RF: 2 Lantus Solostar U-100 Insulin 100 unit/mL (3 mL) insulin pen 40 unit SUBCUT QPM Qty: 15 RF: 1 metformin 500 mg tablet 500 mg PO BID Qty: 180 RF: 0 Hold Instructions: Resume on 03/30/21. hydralazine 50 mg tablet 50 mg PO TID Qty: 270 RF: 3 (DME) pen needle, diabetic [TechLITE Pen Needle] 32 gauge x 5/32 needle See Rx Instructions .Route Qty: 400 RF: 0 tizanidine 4 mg tablet 4 mg PO Q8H PRN (Reason: Muscle Spasm) RF: 0 tramadol 50 mg tablet 50 mg PO QID PRN (Reason: Pain) RF: 0 simvastatin 20 mg tablet 20 mg PO QPM RF: 0 losartan 100 mg tablet 100 mg PO QPM RF: 0 tamsulosin 0.4 mg capsule 0.4 mg PO QPM RF: 0 nitroglycerin [Nitrostat] 0.4 mg Tablet, Sublingual 0.4 mg SUBLINGUAL Q5M PRN (Reason: Chest Pain) RF: 0 sotalol 80 mg tablet 120 mg PO BID RF: 0 Held Xarelto 20 mg tablet See Rx Instructions .ROUTE .COMPLEX Qty: 30 RF: 0 Hold Instructions: Resume on 07/28/21. clopidogrel 75 mg tablet 75 mg PO DAILY RF: 0 Hold Instructions: Resume on 07/22/21. Discharge Orders: Discharge Order (Routine); Ordered 07/18/21 Ordered By: Alli Corral Referrals: Alli Corral MD [Physician] - 07/21/21 (Voiding trial) Discharge Diet: Usual diet Discharge Activity: Limit activity as instructed Patient Instructions: Opioid Safety Activity Restrictions/Additional Instructions: 1. We will conduct a voiding trial in my office this Saturday. 2. Hold Plavix and Xarelto until then. We will review those medications at that visit. 3. You can use a leg bag or night bag per preference. 4. Avoid lifting anything >10 pounds for 3 to 4 weeks. 5. Consuming water and increasing urine output should help avoid clot formation. Discharge Attestations Time Spent in Discharge Care*: greater than 30 min Status at Discharge: Cognitive status at discharge: cognitively intact , Behavioral status at discharge: cooperative , Quality Metrics Clinical Quality Measures During this hospital stay, did patient experience: None Coding Level of Care Code Acute Chg FW DC note Diagnoses Bladder cancer C67.8 Bladder location: overlapping sites Coronary artery disease I25.119 Coronary Disease-Associated Artery/Lesion type: [place] artery [place] vs. 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
[2021-07-18 08:00] VITALS: BP 150/55; PULSE 85; RESP 16; TEMP 36.7; O2SAT 90
[2021-07-18] MEDS: pantoprazole DR 40 mg Tablet PO (08:48)
[2021-07-18] MEDS: hyDRALAzine 50 mg Tablet PO (08:48)
--- NOTE | 2021-07-18 08:52 | PC.NURSE ---
MITOMYCIN MITOMYCIN DRAINED FROM BLADDER WITH DIFFICULTY - FLUSHED TWICE CHEMO PRECAUTIONS FOLLOWED
[2021-07-18] MEDS: sucralfate 1 gm Tablet PO (09:48)
--- NOTE | 2021-07-18 10:34 | PC.NURSE ---
OGLESBY OGLESBY CATHETER CARE, LEG BAG, DRAINAGE BAG AND DISCHARGE EDUCATION GIVEN PER THIS NURSE TO PATIENT AND SPOUSE - BOTH VERBALIZES UNDERSTANDING
[2021-07-18 10:35] VITALS: BP 150/55; PULSE 85; RESP 16; TEMP 36.7; O2SAT 90
== END 2021-07-18 11:08 | disposition home or self-care (01) ==
LOC: MEDSURG 16:31
PROVIDERS: Admitting Provider Urology; PCP Family Medicine; Visit Provider Urology
PROC: 0TBB8ZZ Excision of Bladder, Via Natural or Artificial Opening Endoscopic (ICD-10-PCS; CPT 52240; principal; 2021-07-17 12:00)
PROC: 0TJB8ZZ Inspection of Bladder, Via Natural or Artificial Opening Endoscopic (ICD-10-PCS; CPT 52000; 2021-07-17 12:00)
DX: C67.4 Malignant neoplasm of posterior wall of bladder (principal); C67.2 Malignant neoplasm of lateral wall of bladder; I48.91 Unspecified atrial fibrillation; I10 Essential (primary) hypertension; K21.9 Gastro-esophageal reflux disease without esophagitis; J44.9 Chronic obstructive pulmonary disease, unspecified; I25.110 Atherosclerotic heart disease of native coronary artery with unstable angina pectoris; E11.40 Type 2 diabetes mellitus with diabetic neuropathy, unspecified; E11.65 Type 2 diabetes mellitus with hyperglycemia; E78.1 Pure hyperglyceridemia; N40.1 Benign prostatic hyperplasia with lower urinary tract symptoms; F17.210 Nicotine dependence, cigarettes, uncomplicated; Z79.01 Long term (current) use of anticoagulants; Z79.4 Long term (current) use of insulin; Z79.84 Long term (current) use of oral hypoglycemic drugs
CPT/HCPCS: 52240; 36416; 51720; 82962; 88305; 96372; G0378; J1100; J1815; J1956; J2405; J2704; J2710; J3010; J3490; J7030; J9280

== ENCOUNTER → 2021-08-18 10:59 | Outpatient (BNVA) | payer MEDICARE, BC, SELFPAY | PROVIDERS: PCP Family Medicine; Visit Provider Urology | DX: N40.1 Benign prostatic hyperplasia with lower urinary tract symptoms (principal); C67.8 Malignant neoplasm of overlapping sites of bladder | CPT/HCPCS: 81003 ==

== ENCOUNTER → 2021-08-25 11:02 | Outpatient (BNVA) | payer MEDICARE, BC, SELFPAY | PROVIDERS: PCP Family Medicine; Visit Provider Urology | DX: C67.8 Malignant neoplasm of overlapping sites of bladder (principal); D09.0 Carcinoma in situ of bladder; N40.1 Benign prostatic hyperplasia with lower urinary tract symptoms | CPT/HCPCS: 81003 ==

== ENCOUNTER → 2021-09-01 10:19 | Outpatient (BNVA) | payer MEDICARE, BC, SELFPAY | PROVIDERS: PCP Family Medicine; Visit Provider Urology | DX: N40.1 Benign prostatic hyperplasia with lower urinary tract symptoms (principal) | CPT/HCPCS: 81003 ==

== ENCOUNTER → 2021-09-06 15:28 | Outpatient (BNVA) | payer MEDICARE, BC, SELFPAY | PROVIDERS: PCP Family Medicine; Visit Provider Urology | DX: C67.8 Malignant neoplasm of overlapping sites of bladder (principal) | CPT/HCPCS: 81003 ==

== ENCOUNTER → 2021-09-13 16:01 | Outpatient (BNVA) | payer MEDICARE, BC, SELFPAY | PROVIDERS: PCP Family Medicine; Visit Provider Urology | DX: C67.8 Malignant neoplasm of overlapping sites of bladder (principal) | CPT/HCPCS: 81003 ==

== ENCOUNTER → 2021-09-22 10:23 | Outpatient (BNVA) | payer MEDICARE, BC, SELFPAY | PROVIDERS: PCP Family Medicine; Visit Provider Urology | DX: C67.8 Malignant neoplasm of overlapping sites of bladder (principal) | CPT/HCPCS: 81003 ==

== ENCOUNTER → 2021-11-03 10:16 | Outpatient (BNVA) | payer MEDICARE, BC, SELFPAY | PROVIDERS: PCP Family Medicine; Visit Provider Urology | DX: C67.8 Malignant neoplasm of overlapping sites of bladder (principal); N40.1 Benign prostatic hyperplasia with lower urinary tract symptoms | CPT/HCPCS: 81003 ==

== ENCOUNTER → 2021-11-08 10:29 | Outpatient (BNVA) | payer MEDICARE, BC, SELFPAY | PROVIDERS: PCP Family Medicine; Visit Provider Nurse Practitioner Family | DX: N40.1 Benign prostatic hyperplasia with lower urinary tract symptoms (principal) | CPT/HCPCS: 87635 ==

== ENCOUNTER 2021-11-13 10:24 | Observation (INO) | payer MEDICARE, BC, SELFPAY ==
[2021-11-10 13:16] VITALS: BMI 26.1
[2021-11-13] VITALS (17 sets, daily range): BP systolic 100–164; BP diastolic 42–71; PULSE 52–69; RESP 17–20; TEMP 36.4–37.1; O2SAT 91–100
--- NOTE | 2021-11-13 07:10 | ECG_ITS ---
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 Measurements Intervals [place] Rate: 52 P: 53 OR: 188 QRS: -31 QRSD: 99 T: 100 QT: 436 QTc: 409 Interpretive Statements SINUS BRADYCARDIA INFERIOR MYOCARDIAL INFARCTION , OF INDETERMINATE AGE [40+ ms Q WAVE AND/OR ST/T ABNORMALITY IN II/aVF] MODERATE T-WAVE ABNORMALITY, CONSIDER LATERAL ISCHEMIA [-0.1+ mV T-WAVE IN I/aVL/V5/V6] Compared to ECG 03/26/2021 13:29:10 Myocardial infarct finding now present Atrial fibrillation no longer present Left-axis deviation no longer present T-wave abnormality still present Possible ischemia still present Electronically Signed On 11-13-2021 17:19:40 IT SYSTEMS ANALYST by Gloria Lucas M.D. [email or web address]
[2021-11-13 07:51] LABS: Glucose Point of Care 144 mg/dL (70-110)
[2021-11-13] MEDS: sodium chloride 0.9% 1,000 ML 30 ML IV ×2 (07:52→10:53)
--- NOTE | 2021-11-13 08:03 | W.PM.OPSUD ---
Surgery/Procedure H&P Update DATE OF PROCEDURE: November 13, 2021 DATE H&P PERFORMED: 11/03/21 H&P UPDATE INFORMATION: I have reviewed H&P completed within last 30 days, I have examined patient prior to procedure, No changes to prior documentation and H&P is in [facility] EMR on date indicated CHANGES TO PREVIOUS DOCUMENTATION: Xarelto and Plavix held appropriate times. Still on aspirin PREOP DIAGNOSIS: Recurrent bladder cancer PLANNED PROCEDURE: Operation Date: 11/13/21 08:00 Proposed Procedures p Cystoscopy 14588/c67.9(Not Applicable) - Alli Corral MD s Transurethral Resection Bladder Tumor(Not Applicable) - Alli Corral MD
[2021-11-13] MEDS: levofloxacin-dextrose 5 % 500 MG/100 ML PREMIX 100 MG IV (08:15)
--- NOTE | 2021-11-13 08:23 | ANES.PREANE2 ---
Pre-Anesthetic Assessment Height/Weight: Height 1.73 m Weight 78.018 kg Temp Pulse Resp BP Pulse Ox 98.5 F 57 L 18 154/51 100 11/13/21 07:30 11/13/21 07:30 11/13/21 07:30 11/13/21 07:30 11/13/21 07:30 Preop Diagnosis: Recurrent bladder cancer Operation Date: 11/13/21 08:00 Proposed Procedures p Cystoscopy 13240/c67.9(Not Applicable) - Alli Corral MD s Transurethral Resection Bladder Tumor(Not Applicable) - Alli Corral MD Familial anesthetic complications: None Was Beta Alissa taken within 24 hours: Yes Was Clonidine taken within 24 hours: N/A Last intake: Intake Last Liquid Date 11/12/21 Last Liquid Time 18:00 Last Solid Date 11/12/21 Last Solid Time 18:00 Social No alcohol and No tobacco Exam alert, oriented x 3, clear to auscultation bilaterally and regular rate & rhythm Airway Submandibular: within normal limits Cervical ROM: within normal limits Mallampati: Class III Dentition: chipped CV/HEM Atrial Fibrillation, Coronary Artery Disease (stents) and Hypertension GI Gastroesophageal Reflux Disease Metabolic Diabetes Mellitus and Hyperlipidemia Neuropsych Neuropathy Anesthetic Plan ASA status: 3 Anesthesia: General Medications/Allergies Home Medications Medication Instructions Recorded Confirmed Last Taken Type ferrous sulfate 325 mg (65 mg 325 mg PO QAM 02/10/20 11/13/21 11/13/21 History iron) tablet pantoprazole 40 mg tablet,delayed 40 mg PO BID 07/05/20 11/13/21 11/13/21 History release duloxetine 20 mg capsule,delayed 20 mg PO QAM cap 11/29/20 11/13/21 11/13/21 History release (Cymbalta) sucralfate 1 gram tablet 1 g PO QID PRN tab 11/29/20 11/13/21 11/13/21 History sotalol 80 mg tablet 120 mg PO BID 12/06/20 11/13/21 11/13/21 06:15 History amlodipine 10 mg tablet 10 mg PO QAM tab 12/23/20 11/13/21 11/13/21 History chlorthalidone 25 mg tablet 25 mg PO QAM 02/09/21 11/13/21 11/13/21 History insulin glargine 100 unit/mL (3 40 unit (0.4 mL) SUBCUT QPM #15 ml 02/09/21 11/13/21 11/12/21 Rx mL) subcutaneous pen (Lantus Solostar U-100 Insulin) clopidogrel 75 mg tablet (Plavix) 75 mg PO DAILY 03/09/21 11/10/21 11/06/21 History losartan 100 mg tablet 100 mg PO QPM 03/09/21 11/10/21 07/16/21 History simvastatin 20 mg tablet 20 mg PO QPM 03/09/21 11/10/21 07/16/21 History tramadol 50 mg tablet 50 mg PO QID PRN 03/09/21 11/13/21 11/12/21 History nitroglycerin 0.4 mg sublingual 0.4 mg SUBLINGUAL Q5M PRN 03/26/21 11/10/21 03/26/21 10:00 History tablet (Nitrostat) tamsulosin 0.4 mg capsule 0.4 mg PO QPM 03/26/21 11/13/21 11/12/21 History pen needle, diabetic 32 gauge x #400 ea 05/24/21 11/03/21 Unknown Rx (TechLITE Pen Needle) hydralazine 50 mg tablet 50 mg PO TID #270 tab 07/26/21 11/13/21 11/13/21 Rx insulin aspart U-100 100 unit/mL See Rx Instructions .ROUTE 10/17/21 11/13/21 11/12/21 Rx (3 mL) subcutaneous pen (Novolog .COMPLEX #54 ml Flexpen U-100 Insulin aspart) rivaroxaban 20 mg tablet (Xarelto) See Rx Instructions .ROUTE 10/26/21 11/10/21 11/09/21 Rx .COMPLEX #90 tab Allergies Allergy/AdvReac Type Severity Reaction Status Date / Time No Known Allergies Allergy Verified 11/10/21 13:08 Current Medications Generic Name Dose Route Start Last Admin Trade Name Freq PRN Reason Stop Dose Admin Sodium Chloride 1,000 mls @ 30 mls/hr 11/13/21 07:15 11/13/21 07:52 Sodium Chloride 0.9% IV 11/14/21 07:14 30 mls/hr .Q24H LISSA Administration PFSH Anesthesia Medical History Abdominal aortic aneurysm (AAA) Afib Anticoagulation adequate with anticoagulant therapy Atrial fibrillation with RVR Patient converted to normal sinus rhythm with home dose of sotalol. Bladder cancer Low-grade noninvasive TCCA with prolific recurrence. BPH loc w urin obs/LUTS Started on TAMSULOSIN March 2021 for chronic BPH symptoms Carotid stenosis COPD (chronic obstructive pulmonary disease) Coronary artery disease Diabetes mellitus Diabetic neuropathy Erectile dysfunction HTN (hypertension), benign Hypertriglyceridemia Peripheral arterial disease Proteinuria Tobacco abuse Surgical History H/O heart artery stent History of abdominal aortic aneurysm (AAA) repair History of bladder surgery History of carotid endarterectomy Hx of appendectomy Previous back surgery S/P femoral-popliteal bypass surgery S/P right coronary artery (RCA) stent placement hx of Distal RCA and Prox RCA Family History Father , in his 80's Stroke Mother , at age 83 Diabetes Social History Smoking and tobacco status: current every day smoker cigarettes Packs smoked per day: 1 Alcohol intake: never Household members: spouse Marital status: service: Yes branch: [employer] Current occupational status: retired History of recent travel: No Data Anesthesia Cardiac Studies: Echocardiogram Limited Views 03/27/21 Echocardiogram Ultrasound 03/10/21
[2021-11-13] MEDS: lidocaine 2% Urojet 20 mL TOPICAL (08:59)
--- NOTE | 2021-11-13 09:32 | PM.OP ---
Operative Report Date of procedure: November 13, 2021 Pre-op diagnosis: Preop Diagnosis Recurrent bladder cancer Post-op diagnosis: Recurrent bladder cancer Post-op findings: Procedure done: Transurethral resection/fulguration of bladder tumor large Pathology: Sample of bladder neck tumor Surgeon: Ellis Estimated blood loss: Minimal Urine output: Not measured Complications: None Findings: Approximately 15 bladder tumors located on the dome, anterior bladder wall, posterior bladder wall, and bladder neck. A small asset protection representative sample of the bladder neck tumor was sent remaining of the tumors were fulgurated Brief History: Mr. Hickey is a very pleasant 76-year-old white male with a prolific history of bladder tumor recurrence. Tumors have been low-grade. He has been on BCG which has not really affected the prolific recurrence rate. Recent cystoscopy revealed multiple recurrences with the largest at the bladder neck. All bulk volume was felt to be too large to fulgurate in the clinic. Procedure: After routine preoperative evaluation examination and obtaining of informed consent he was taken to the operating suite on 11/13/2021 where general anesthesia was administered without difficulty after appropriate timeout was performed, SCDs confirmed to be functioning, preoperative antibiotics administered, beta-reji protocol confirmed. Prepped and draped in the usual sterile fashion in dorsolithotomy position. 21 [place] cystoscope with 30 degree lens was introduced into the urethra meatus and advanced into the bladder under videoscopy. The urethra did show some large bypassable caliber strictures. The bladder was carefully inspected with 30 and 70 degree lenses. The bladder had multiple recurrences as described above. The urethra was then calibrated [place] sounds and easily accommodated 30 [place]. The first passage of the 22 created a small false passage but this was easily bypassed with manipulating the tip of the [place] sounds for the remainder of the dilation. 2% lidocaine jelly was instilled into the urethra then a 25 [place] continuous-flow resectoscope sheath with visual obturator in place was advanced into the bladder without difficulty. The bladder neck was noted to be very tight. This prevented good visualization of the anterior bladder wall and anterior bladder neck. The remainder of the tumors along the dome and the posterior bladder wall were easily identified and accessible and therefore the button probe was utilized in the working element for complete fulguration of this multiple tumors. The super loop was utilized to resect the anterior bladder neck tumor in its entirety. Hemostasis was visually confirmed. There was a small sample that had not been destroyed in the resection of the anterior bladder neck tumor. In order to completely evaluate the bladder wall it was decided to use a digital flexible cystoscope. It was passed without difficulty into the bladder. Irrigation was changed to water which helped to facilitate visualization and there were several anterior bladder wall tumors that had not been visualized with the resectoscope. These were then completely fulgurated with a [place] cautery pros. The all had is all the other tumors a very well differentiated appearance consistent with his previous noninvasive well-differentiated bladder cancer. Final inspection revealed no residual tumors. A flexible tip guidewire was passed through the scope to help facilitate catheter passage through the area where there was a small false passage. A 20 [place] three-way Meléndez catheter was converted to a [place] tip catheter passed easily over the guidewire into the bladder with clear efflux. CBI was initiated at a very low rate. He tolerated procedure well without complications and was awakened in the operating room and returned to PACU in stable condition. PLANS: 1. Admit to observation status with anticipated discharge tomorrow with Meléndez catheter 2. Mitomycin instillation tomorrow a.m.
[2021-11-13] MEDS: famotidine 20 mg/2 mL INJ IVP ×2 (10:51→22:33)
[2021-11-13] MEDS: cetylpyridinium Lozenge 1 EACH MUCOUS MEM (10:52)
[2021-11-13 13:01] LABS: Glucose Point of Care 149 mg/dL (70-110)
--- NOTE | 2021-11-13 14:34 | ANE.PACU2 ---
Inpatient post-anesthesia follow up: Airway intact: Yes Vital signs: Temperature 98.7 F Pulse Rate 54 Respiratory Rate 18 Blood Pressure 148/67 Pulse Oximetry 92 Oxygen Delivery Me thod [ Room Air Current Rate & Del agrth] Oxygen Delivery Me thod Room Air Oxygen Flow Rate 6 Fraction of Inspir ed Oxygen Hydration adequate: Yes Nausea and vomiting: No Pain level: 2 Mental status: Baseline
[2021-11-13] MEDS: hyDRALAzine 50 mg Tablet PO ×2 (15:35→20:56)
[2021-11-13] MEDS: atorvastatin 40 mg Tablet 20 MG PO (17:29)
[2021-11-13] MEDS: insulin glargine 100 units/1 mL 40 UNIT SUBCUT (17:30)
[2021-11-13] MEDS: docusate sodium 100 mg Capsule PO (17:30)
[2021-11-13] MEDS: losartan 50 mg Tablet 100 MG PO (17:30)
[2021-11-13] MEDS: pantoprazole DR 40 mg Tablet PO (17:31)
[2021-11-13] MEDS: sotalol 80 mg Tablet 120 MG PO (17:31)
[2021-11-13] MEDS: tamsulosin 0.4 mg Capsule PO (17:32)
[2021-11-13] MEDS: insulin lispro 100 unit/1 mL SUBCUT (17:42)
[2021-11-13 20:35] LABS: Glucose Point of Care 327 mg/dL (70-110)
[2021-11-13 20:35] LABS: Glucose Point of Care 432 mg/dL (70-110)
[2021-11-14] MEDS: insulin lispro 100 unit/1 mL SUBCUT (00:43)
[2021-11-14 04:00] VITALS: BP 152/58; PULSE 75; RESP 18; TEMP 36.9; O2SAT 92
[2021-11-14 06:00] VITALS: PULSE 68
[2021-11-14] MEDS: ferrous sulfate EC 325 mg Tablet PO (06:31)
[2021-11-14] MEDS: chlorthalidone 25 mg Tablet PO (06:31)
[2021-11-14] MEDS: amlodipine 10 mg Tablet PO (06:32)
[2021-11-14] MEDS: duloxetine 20 mg Capsule PO (06:32)
[2021-11-14 07:19] VITALS: BP 155/58; PULSE 76; RESP 18; TEMP 36.7; O2SAT 91
--- NOTE | 2021-11-14 07:40 | PM.MISC ---
Miscellaneous Note Note: MITOMYCIN intravesical instillation Irrigation port was plugged. 40 mg of mitomycin was instilled into the drainage port under low pressure. Tolerated well. Drainage port plugged. Post installation instructions: Hold fluid intake, drain in no greater than 1 hour (8 AM), and if doing well discharged shortly thereafter with Meléndez catheter in place.
--- NOTE | 2021-11-14 07:45 | P.DS_ITS ---
Discharge Providers Date of Admission: 11/13/21 10:24 Date of Discharge: November 14, 2021 Attending Provider at Admission: Alli Corral MD Attending Provider at Discharge: Alli Corral MD Primary Care Provider: Bree Perkins MD Reason for Visit Reason for Visit: bladder tumor Brief History: Recurrent bladder cancer Prolific low-grade noninvasive bladder cancer former. Still smoking. Recent surveillance cystoscopy revealed multiple recurrences and is admitted this hospital stay for TURBT/fulguration. Hospital Course Hospital Course He was admitted on 11/13/2021 and the procedure of TURBT was performed without difficulty. All tumors were either completely fulgurated or resected. Postoperative course was unremarkable. On postop day #1 mitomycin was instilled in the bladder for 1 hour. Catheter was left indwelling at discharge due to dilation of the urethra required due to some multiple levels of urethral narrowing/stricture. These were not severe but did require dilation based on the size of the resectoscope sheath. He did well and was discharged on postop day #1 after mitomycin instillation was left indwelling for 1 hour and then completely drained. Physical Exam Narrative: Alert and oriented no acute distress No labored respiration no wheezes Abdomen is soft nontender No change in genitourinary exam Urine is clear. Meléndez catheter functioning well. Urinary Catheter Management: 3-way Urethral CBI: Cath Placed During This Visit: yes Reason for Continuing Indwelling Catheter: Other Urinary Catheter Date of Insertion: 11/13/21 Urinary Catheter Time of Insertion: 09:22 Discharge Data Studies Completed and Pending Pending at discharge Category Date Time Status Pathology: Surgical [PTH] Routine Pth 11/13/21 09:37 Received Laboratory Results POC Glucose 432 mg/dL (70-110) H 11/13/21 20:31 Procedures Performed 1. Cystoscopy, TURBT large 2. MITOMYCIN bladder instillation on postop day #1, held for 1 hour Vitals Last Vital Signs Temp 98.0 F 11/14/21 07:19 Pulse 76 11/14/21 07:19 Resp 18 11/14/21 07:19 BP 155/58 11/14/21 07:19 Pulse Ox 91 11/14/21 07:19 Discharge Plan Discharge Patient Disposition: Home Condition: Stable Prescriptions: Continued duloxetine [Cymbalta] 20 mg capsule,delayed release(DR/EC) 20 mg PO QAM 0RF sucralfate 1 gram tablet 1 g PO QID PRN (Reason: UNKNOWN) 0RF amlodipine 10 mg tablet 10 mg PO QAM 0RF ferrous sulfate 325 mg (65 mg iron) tablet 325 mg PO QAM 0RF pantoprazole 40 mg tablet,delayed release (DR/EC) 40 mg PO BID 0RF chlorthalidone 25 mg tablet 25 mg PO QAM 0RF Lantus Solostar U-100 Insulin 100 unit/mL (3 mL) insulin pen 40 unit SUBCUT QPM Qty: 15 1RF (DME) pen needle, diabetic [TechLITE Pen Needle] 32 gauge x 5/32 needle See Rx Instructions .Route Qty: 400 0RF Rx Instructions: test 4 times daily hydralazine 50 mg tablet 50 mg PO TID Qty: 270 3RF insulin aspart U-100 [Novolog Flexpen U-100 Insulin] 100 unit/mL (3 mL) insulin pen See Rx Instructions .ROUTE .COMPLEX Qty: 54 0RF Dose Instruction: INJECT UP TO 20 UNITS UNDER THE SKIN THREE TIMES DAILY BEFORE MEALS. Rx Instructions: INJECT UP TO 20 UNITS UNDER THE SKIN THREE TIMES DAILY BEFORE MEALS. tramadol 50 mg tablet 50 mg PO QID PRN (Reason: Pain) 0RF simvastatin 20 mg tablet 20 mg PO QPM 0RF losartan 100 mg tablet 100 mg PO QPM 0RF tamsulosin 0.4 mg capsule 0.4 mg PO QPM 0RF nitroglycerin [Nitrostat] 0.4 mg Tablet, Sublingual 0.4 mg SUBLINGUAL Q5M PRN (Reason: Chest Pain) 0RF sotalol 80 mg tablet 120 mg PO BID 0RF Held Xarelto 20 mg tablet See Rx Instructions .ROUTE .COMPLEX Qty: 90 3RF Hold Instructions: Resume on 03/16/21. Dose Instruction: TAKE 1 TABLET BY MOUTH DAILY Rx Instructions: TAKE 1 TABLET BY MOUTH DAILY clopidogrel [Plavix] 75 mg tablet 75 mg PO DAILY 0RF Hold Instructions: Resume on 03/16/21. Discharge Orders: Discharge Order (Routine); Ordered 11/14/21 Ordered By: Alli Corral Referrals: Alli Corral MD [Physician] - 11/21/21 10:15 am Discharge Diet: Usual diet Discharge Activity: Limit activity as instructed Patient Instructions: Meléndez Catheter Care, Urinary Leg Bag (GEN), Transurethral Resection of Bladder Tumors (GEN), How to Change a Catheter Drainage Bag (GEN), Opioid Safety Activity Restrictions/Additional Instructions: 1. We will remove the catheter in about a week with voiding trial and self cath reconstruction. 2. We will review the pathology report on the follow-up visit. 3. Regarding the recurrent bladder cancer we will plan on doing a cystoscopy in about 1 month. This will represent acceleration of reevaluation given your prolific recurrence rate. We will discuss BCG continuation at that time. Can restart the Xarelto on 11/17/2021. Continue holding the Plavix until 11/20/2021. If you notice increasing bloody urine increase her fluid intake to avoid clotting in the bladder Discharge Attestations Time Spent in Discharge Care*: less than 30 min Status at Discharge: Cognitive status at discharge: cognitively intact , Behavioral status at discharge: cooperative , Quality Metrics Clinical Quality Measures [ No reported AMI, CVA or VTE this stay] Coding Level of Care Code Acute Chg ZE LEONG note
[2021-11-14] MEDS: docusate sodium 100 mg Capsule PO (07:57)
[2021-11-14] MEDS: hyDRALAzine 50 mg Tablet PO (07:57)
[2021-11-14] MEDS: pantoprazole DR 40 mg Tablet PO (07:58)
[2021-11-14] MEDS: sotalol 80 mg Tablet 120 MG PO (08:00)
--- NOTE | 2021-11-14 08:00 | PC.NURSE ---
Bladder drained at this time. Patient tolerated medication well.
[2021-11-14 08:02] VITALS: PULSE 70; RESP 16; O2SAT 92
[2021-11-14 10:53] VITALS: BP 150/60; PULSE 70; RESP 16; TEMP 36.7; O2SAT 94
--- NOTE | 2021-11-14 10:59 | PC.NURSE ---
IV removed intact at this time. Patient tolerated well. Leg bag placed on patient at this time. Patient is A&Ox3. Respirations even and non-labored on room air. Reviewed discharge instructions with patient and . Patient and verbalized understanding of discharge including holding his Xarelto until 11/17/21 and Plavix until 11/20/21 and follow up appointments. Patient assisted into the wheel chair and pushed to private car.
[2021-11-14 12:14] LABS: Glucose Point of Care 217 mg/dL (70-110)
== END 2021-11-14 10:54 | disposition home or self-care (01) ==
LOC: MEDSURG 10:24
PROVIDERS: Admitting Provider Urology; PCP Family Medicine; Visit Provider Urology
PROC: 0TJB8ZZ Inspection of Bladder, Via Natural or Artificial Opening Endoscopic (ICD-10-PCS; CPT 52000; principal; 2021-11-13 08:00)
PROC: 0TBB8ZZ Excision of Bladder, Via Natural or Artificial Opening Endoscopic (ICD-10-PCS; CPT 52240; 2021-11-13 08:00)
DX: C67.8 Malignant neoplasm of overlapping sites of bladder (principal); F17.210 Nicotine dependence, cigarettes, uncomplicated; I48.91 Unspecified atrial fibrillation; I25.10 Atherosclerotic heart disease of native coronary artery without angina pectoris; Z95.5 Presence of coronary angioplasty implant and graft; I10 Essential (primary) hypertension; K21.9 Gastro-esophageal reflux disease without esophagitis; E78.5 Hyperlipidemia, unspecified; E11.40 Type 2 diabetes mellitus with diabetic neuropathy, unspecified; Z79.4 Long term (current) use of insulin; N40.1 Benign prostatic hyperplasia with lower urinary tract symptoms; N13.8 Other obstructive and reflux uropathy; J44.9 Chronic obstructive pulmonary disease, unspecified
CPT/HCPCS: 52240; 36416; 82962; 88305; 93005; 96372; G0378; J1100; J1815 ×2; J1956; J2405; J2704; J3010; J3490; J7030; J9280

== ENCOUNTER 2021-11-27 13:28 | Outpatient (CLI) | payer MEDICARE, BC, SELFPAY ==
[2021-11-27 14:07] LABS: Basophils % 0.3 %; Eosinophils # 0.2 10^3/uL (0.0-0.8); Eosinophils % 1.9 %; Hematocrit 33.6 % (42.0-52.0); Hemoglobin 10.4 g/dL (11.7-16.6); Lymphocytes # 2.2 10^3/uL (0.8-4.8); Lymphocytes % 22.2 %; Mean Corpuscular Hemoglobin 27.2 pg (28.0-34.0); Mean Platelet Volume 8.9 fL (7.4-10.4); Monocytes # 0.8 10^3/uL (0.2-0.9); Monocytes % 8.3 %; Neutrophils # 6.71 10^3/uL (1.8-7.7); Neutrophils % 66.9 %; Nucleated Red Blood Cells % 0 %; Platelet Count 439 10^3/cmm (130-400); Red Blood Count 3.82 10^6/uL (4.1-5.3); Red Cell Distribution Width 14.6 % (12.1-15.1)
[2021-11-27 14:28] LABS: Alanine Aminotransferase 13 U/L (0-41); Albumin Level 3.2 g/dL (3.5-5.2); Alkaline Phosphatase 79 IU/L (40-130); Anion Gap 15.3 (5-19); Aspartate Amino Transferase 14 U/L (0-40); Blood Urea Nitrogen 32 mg/dL (8-23); Carbon Dioxide 22 mmol/L (22-29); Chloride 104 mmol/L (98-107); Globulin 3.8 g/dL (1.3-4.6); Glucose 133 mg/dL (65-115); Osmolality Calculated 293 mOsm/kg (285-295); Potassium 4.3 mmol/L (3.5-5.1); Sodium 137 mmol/L (136-145); Total Bilirubin 0.2 mg/dL (0.15-1.2)
== END 2021-11-27 13:29 | disposition home or self-care (01) ==
LOC: LAB 13:31
PROVIDERS: PCP Family Medicine; Visit Provider Nurse Practitioner
DX: L30.9 Dermatitis, unspecified (principal)
CPT/HCPCS: 36415; 80053; 85025

== ENCOUNTER 2021-12-12 11:02 | Emergency (ER) | payer MEDICARE, BC, SELFPAY ==
--- NOTE | 2021-12-12 11:16 | ECG_ITS ---
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 Measurements Intervals [place] Rate: 105 P: AR: QRS: -51 QRSD: 98 T: 72 QT: 378 QTc: 501 Interpretive Statements ATRIAL FIBRILLATION WITH RAPID VENTRICULAR RESPONSE INFERIOR MYOCARDIAL INFARCTION , PROBABLY OLD [40+ ms Q WAVE AND/OR ST/T ABNORMALITY IN II/aVF] Compared to ECG 11/13/2021 07:47:55 Sinus bradycardia no longer present T-wave abnormality no longer present Possible ischemia no longer present Myocardial infarct finding still present Electronically Signed On 12-13-2021 16:59:00 CDT by Luis Mast M.D. [id number]
[2021-12-12 11:21] VITALS: BP 96/67; PULSE 109; RESP 18; TEMP 36.7; O2SAT 99; BMI 25.7
--- NOTE | 2021-12-12 11:38 | CT_ITS ---
WS: [id number] CT ANGIOGRAPHY abdomen and pelvis. HISTORY: mesenteric artery stenosis, s/p angioplasty w stent TECHNIQUE: CT angiogram is performed during IV injection. Reformation images reviewed. All CT scans a [employer] use at least one of these dose optimization techniques: automated exposure contro l; mA and/or kV adjustment per patient size (includes targeted exams where dose is matched to clinica l indication); or iterative reconstruction. CONTRAST: Visipaque 320; 95 mL IV. DLP: 685.15 mGy.cm COMPARISON: 11/25/2020 Severe emphysematous changes at the lung bases. Benign granuloma at the RIGHT lung base. Heart size i s normal. No pericardial effusion. Small hiatal hernia. Abdominal aorta: Scattered calcified plaque and intimal thickening throughout the abdominal aorta. Pl aque increases below the level of the renal arteries. There is an infrarenal endovascular stent graft with bilateral iliac extensions. Calcified plaque and intimal thickening. No endovascular leak is ap preciated. The maximum diameter of the [place] aneurysm is 3.1 cm. No periaortic extravasation. Contra st extends into the common iliac arteries. Just distal to the LEFT common iliac stent graft is a foca l aneurysmal dilatation to 1.8 cm and intimal thrombus. No high-grade stenosis. External iliac artery is patent. 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 There is a focal stenosis of 50-60% involving the RIGH T common iliac artery just distal to the graft. 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 Dense calcification at the origin of the SMA extends over length of 1.8 cm. There is also a short cintia nt in the proximal SMA. Contrast enhancement is noted just distal to the stent. Heavy calcified plaqu e at the origin of the celiac axis. High-grade stenosis suspected at the origin of the celiac axis. Renal arteries are both patent with plaque. Stenosis approaching 50%. MILENA appears to be occluded. Normal size liver. There are a few scattered too small to characterize low-attenuation lesions. Gallb ladder is negative. No spleen or pancreas abnormality. Pancreas is atrophic. Normal RIGHT adrenal gla nd. Nodularity and hyperplasia LEFT adrenal gland stable since 2017. RIGHT kidney is negative. No corey id mass. Numerous cysts within the LEFT kidney with no solid mass or obstruction. No adenopathy, free fluid or free air. No GI tract obstruction. Numerous diverticula in the distal co kole. Prostate gland is slightly enlarged encroaching into the urinary bladder. No osseous abnormality . CT/CT angio abdomen pelvis 53346 IMPRESSION: 1. Status post endovascular stent grafting of aorta with biiliac extension. No periaortic hematoma and no increase in size of the [place] aortic aneurysm. 2. Short stent in the proximal SMA with adjacent calcified plaque. Difficult t o visualize contrast within the stent due to the plaque. There is contrast enha ncement noted just distal to the stent therefore there is no complete occlusion . 3. Heavy calcification at the origin of the celiac axis with stenosis. 4. Just distal to the RIGHT iliac stent is a 50-60% stenosis. 5. Occluded bilateral internal iliac arteries. 6. Prostate enlargement. 7. At this time there is no evidence for ischemic bowel.
--- NOTE | 2021-12-12 11:39 | ED_ITS ---
HPI - Abdominal Pain General: Chief Complaint: Abdominal Pain Stated Complaint: abd pain; afib Time Seen by Provider: 12/12/21 11:34 Source: patient Mode of arrival: ambulatory Limitations: no limitations History of Present Illness: 76-year-old male presents emergency room with complaints of abdominal pain and cramping for the last week with nausea had couple episodes of vomiting. Patient was seen by his primary care doctor today and was found to be in atrial fibrillation directed here. Patient has known history of coronary artery disease previously has had angiography and stenting. 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 He is an insulin-dependent diabetic. He is not on anything for any sort of rate control. He has had some dark stools but is taking Pepto-Bismol for the stomach discomfort which has not helped much. MD elicited complaint: abdominal pain Pertinent past history: other (Mesenteric artery stenosis) Onset (ago): week(s) (1) Pain Consistency: constant Location: Periumbilical Severity: moderate Quality: cramping Radiation: none Migration to: no migration Exacerbating factors: nothing Relieving factors: nothing Associated Symptoms: Reports bloating, GI cramping, nausea, poor appetite and vomiting; Denies anorexia, belching, change in bowel habits, change in stool character, chills, coffee ground emesis, constipation, diarrhea, dyspepsia, dysuria, excessive flatus, fever(s), heartburn, hematochezia, hematuria, hematemesis, fecal incontinence, loose stools, melena and syncope Review of Systems Const: Denies: fever(s) or chills ENMT: Denies: throat pain, ear or mastoid pain, nasal discharge or nasal congestion Card: Reports: palpitations and irregular heart rhythm; Denies: chest pain, edema, swelling of feet/ankles or syncope Resp: Denies: dyspnea, productive cough or non-productive cough GI: Reports: abdominal pain, nausea, vomiting, bloating and GI cramping; Denies: hematemesis, coffee ground emesis, heartburn, diarrhea, constipation, belching, excessive flatus, fecal incontinence, change in bowel habits, change in stool character, hematochezia or melena : Denies: dysuria or hematuria Skin/Breast: Denies: rash or pruritus PFSH ED PFSH: Medical History Abdominal aortic aneurysm (AAA) Afib Anticoagulation adequate with anticoagulant therapy Atrial fibrillation with RVR Patient converted to normal sinus rhythm with home dose of sotalol. Bladder cancer Low-grade noninvasive TCCA with prolific recurrence. BPH loc w urin obs/LUTS Started on TAMSULOSIN March 2021 for chronic BPH symptoms Carotid stenosis COPD (chronic obstructive pulmonary disease) Coronary artery disease Diabetes mellitus Diabetic neuropathy Erectile dysfunction HTN (hypertension), benign Hypertriglyceridemia Peripheral arterial disease Proteinuria Tobacco abuse Surgical History H/O heart artery stent History of abdominal aortic aneurysm (AAA) repair History of bladder surgery History of carotid endarterectomy Hx of appendectomy Previous back surgery S/P femoral-popliteal bypass surgery S/P right coronary artery (RCA) stent placement hx of Distal RCA and Prox RCA Family History Father , in his 80's Stroke Mother , at age 83 Diabetes Social History Smoking and tobacco status: current every day smoker cigarettes Packs smoked per day: 1 Alcohol intake: never Household members: spouse Marital status: service: Yes branch: [employer] Current occupational status: retired History of recent travel: No Physical Exam Const: COMMON NORMALS: average body habitus, patient oriented x3 and alert GENERAL APPEARANCE: cooperative, comfortable, well kempt and well developed NUTRITIONAL APPEARANCE: obese ORIENTATION/CONSCIOUSNESS: Yes awake, Yes oriented to person and Yes oriented to place HENMT: COMMON NORMALS: normocephalic, atraumatic and EAC's normal HEAD & S CALP: normocephalic and atraumatic EXTERNAL AUDITORY CANAL: EAC's normal Neck/C-Spine: COMMON NORMALS: no meningeal signs Resp: COMMON NORMALS: normal respiratory effort, No retractions, No use of accessory muscles and clear to auscultation bilaterally AUSCULTATION: clear to auscultation bilaterally Cardio: COMMON NORMALS: regular rate and regular rhythm RATE: regular rate RHYTHM: regular rhythm HEART SOUNDS: no murmurs GI: COMMON NORMALS: Normal to inspection, nondistended, normoactive bowel sounds present and No hepatosplenomegaly present PALPATION: Yes Tenderness to palpation present (GI) (diffuse), No Guarding due to palpation present (GI) and Yes No hepatosplenomegaly present : COMMON NORMALS: Yes no CVA tenderness BLADDER/KIDNEY EXAM: Yes no CVA tenderness Back/Pelvis: COMMON NORMALS: no CVA tenderness LUMBAR SPINE/LOWER BACK: Yes normal to inspection Extremity: COMMON NORMALS: no clubbing, cyanosis or edema, no calf tenderness and no pedal edema Neuro: COMMON NORMALS: patient oriented x3 SENSORIUM/ORIENTATION: Yes alert, Yes oriented to person and Yes oriented to place MENINGEAL SIGNS: Yes no meningeal signs Psych: APPEARANCE: Yes well kempt Skin: COMMON NORMALS: no rashes or lesions noted and turgor normal GENERAL SKIN EXAM: no rashes or lesions noted and turgor normal Course 2 Vital Signs: Vital signs: Vital Signs Temperature 98.1 F 12/12/21 11:21 Pulse Rate 89 12/12/21 15:19 Respiratory Rate 22 H 12/12/21 15:19 Blood Pressure 121/93 12/12/21 15:19 Pulse Oximetry 92 12/12/21 15:19 MDM - Abdominal Pain Medical Decision Making CT negative. Does have a mild bladder infection is also getting treated for bladder cancer we will culture urine and start on Macrobid. Blood pressure low initially but then improved. We will go ahead and discharge patient home. Follow-up with his primary care doctor within the week. Reviewed with him the CT and lab findings no sign of Significant intra-abdominal pathology symptoms worsen return. Medical Records I reviewed the patient's medical records. Lab Data I reviewed the patient's lab results. : 12/12/21 11:57 12/12/21 11:57 Labs/Radiology: Radiology Impressions Abdomen/Pelvis CTA 12/12/21 11:38 IMPRESSION: 1. Status post endovascular stent grafting of aorta with biiliac extension. No periaortic hematoma and no increase in size of the lower [place] aortic aneurysm. 2. Short stent in the proximal SMA with adjacent calcified plaque. Difficult to visualize contrast within the stent due to the plaque. There is contrast enhancement noted just distal to the stent therefore there is no complete occlusion. 3. Heavy calcification at the origin of the celiac axis with stenosis. 4. Just distal to the RIGHT iliac stent is a 50-60% stenosis. 5. Occluded bilateral internal iliac arteries. 6. Prostate enlargement. 7. At this time there is no evidence for ischemic bowel. Laboratory Results WBC 11.6 10^3/uL (4.0-10.0) H 12/12/21 11:57 RBC 3.65 10^6/uL (4.1-5.3) L 12/12/21 11:57 Hgb 9.6 g/dL (11.7-16.6) L 12/12/21 11:57 Hct 31.3 % (42.0-52.0) L 12/12/21 11:57 MCV 85.8 fl (80-94) 12/12/21 11:57 MCH 26.3 pg (28.0-34.0) L 12/12/21 11:57 MCHC 30.7 g/dL (30.0-36.0) 12/12/21 11:57 RDW 14.9 % (12.1-15.1) 12/12/21 11:57 Plt Count 477 10^3/cmm (130-400) H 12/12/21 11:57 MPV 9.0 fL (7.4-10.4) 12/12/21 11:57 Neut % (Auto) 72.4 % 12/12/21 11:57 Lymph % (Auto) 15.5 % 12/12/21 11:57 [place] % (Auto) 9.1 % 12/12/21 11:57 Eos % (Auto) 2.1 % 12/12/21 11:57 Baso % (Auto) 0.6 % 12/12/21 11:57 Neut # (Auto) 8.41 10^3/uL (1.8-7.7) H 12/12/21 11:57 Lymph # (Auto) 1.8 10^3/uL (0.8-4.8) 12/12/21 11:57 [place] # (Auto) 1.1 10^3/uL (0.2-0.9) H 12/12/21 11:57 Eos # (Auto) 0.2 10^3/uL (0.0-0.8) 12/12/21 11:57 Baso # (Auto) 0.1 10^3/uL (0.0-0.1) 12/12/21 11:57 Nucleated RBC % (auto) 0 % 12/12/21 11:57 Nucleated RBCs # 0.0 /100WBC 12/12/21 11:57 Sodium 132 mmol/L (136-145) L 12/12/21 11:57 Potassium 3.7 mmol/L (3.5-5.1) 12/12/21 11:57 Chloride 98 mmol/L (98-107) 12/12/21 11:57 Carbon Dioxide 21 mmol/L (22-29) L 12/12/21 11:57 Anion Gap 16.7 (5-19) 12/12/21 11:57 BUN 27 mg/dL (8-23) H 12/12/21 11:57 Creatinine 1.2 mg/dL (0.7-1.2) 12/12/21 11:57 GFR Calculation Not Reportable 12/12/21 11:57 Glucose 163 mg/dL (65-115) H 12/12/21 11:57 POC Glucose 138 mg/dL (70-110) H 12/12/21 14:16 Calculated Osmolality 283 mOsm/kg (285-295) L 12/12/21 11:57 Lactic Acid 1.2 mmol/L (0.5-2.2) 12/12/21 11:57 Calcium 8.8 mg/dL (8.5-10.5) 12/12/21 11:57 Total Bilirubin 0.2 mg/dL (0.15-1.2) 12/12/21 11:57 AST 11 U/L (0-40) 12/12/21 11:57 ALT 11 U/L (0-41) 12/12/21 11:57 Alkaline Phosphatase 91 IU/L (40-130) 12/12/21 11:57 Troponin T Gen 5 ng/L Cancelled 12/12/21 11:57 Troponin T Baseline 34 ng/L (0-15) H 12/12/21 11:57 Troponin T 120 Minute 32.48 ng/L (0-15) H 12/12/21 14:35 Delta Troponin T -1.52 ABS# (0-10) L 12/12/21 14:35 Total Protein 6.9 g/dL (6.6-8.7) 12/12/21 11:57 Albumin 2.8 g/dL (3.5-5.2) L 12/12/21 11:57 Globulin 4.1 g/dL (1.3-4.6) 12/12/21 11:57 Lipase 19 U/L (13-60) 12/12/21 11:57 Urine Color Yellow (Yellow) 12/12/21 13:25 Urine Appearance Clear (CLEAR) 12/12/21 13:25 Urine pH 6 (5-7) 12/12/21 13:25 Ur Specific [place] 1.010 (1.005-1.030) 12/12/21 13:25 Urine Protein 1+ (Negative) H 12/12/21 13:25 Urine Glucose (UA) Norm (Normal) 12/12/21 13:25 Urine Ketones Negative (Negative) 12/12/21 13:25 Urine Blood Neg (Negative) 12/12/21 13:25 Urine Nitrate Negative (Negative) 12/12/21 13:25 Urine Bilirubin Neg (Negative) 12/12/21 13:25 Urine Urobilinogen Neg mg/dL (Negative) 12/12/21 13:25 Ur Leukocyte Esterase Trace (Negative) H 12/12/21 13:25 Urine RBC Rare /hpf (0-2) 12/12/21 13:25 Urine WBC 5-10 /hpf (0-5) H 12/12/21 13:25 Ur Squamous Epith Cells Rare /hpf (0-5) 12/12/21 13:25 Amorphous Sediment Not Reportable 12/12/21 13:25 Urine Bacteria Trace /hpf (NONE) 12/12/21 13:25 Discharge Plan Discharge Patient Disposition: Home Clinical Impression: Abdominal pain, Cystitis, Atrial fibrillation Condition: Stable Prescriptions: New Macrobid 100 mg capsule 100 mg PO BID 7 Days Qty: 14 0RF Rx Instructions: must administer with a meal/food simvastatin 20 mg tablet 20 mg PO QPM Qty: 30 0RF Discontinued simvastatin 20 mg tablet 20 mg PO QPM 0RF No Action duloxetine [Cymbalta] 20 mg capsule,delayed release(DR/EC) 20 mg PO QAM 0RF sucralfate 1 gram tablet 1 g PO QID PRN (Reason: UNKNOWN) 0RF amlodipine 10 mg tablet 10 mg PO QAM 0RF ferrous sulfate 325 mg (65 mg iron) tablet 325 mg PO QAM 0RF pantoprazole 40 mg tablet,delayed release (DR/EC) 40 mg PO BID 0RF chlorthalidone 25 mg tablet 25 mg PO QAM 0RF Lantus Solostar U-100 Insulin 100 unit/mL (3 mL) insulin pen 40 unit SUBCUT QPM Qty: 15 1RF (DME) pen needle, diabetic [TechLITE Pen Needle] 32 gauge x 5/32 needle See Rx Instructions .Route Qty: 400 0RF Rx Instructions: test 4 times daily insulin aspart U-100 [Novolog Flexpen U-100 Insulin] 100 unit/mL (3 mL) insulin pen See Rx Instructions .ROUTE .COMPLEX Qty: 54 0RF Dose Instruction: INJECT UP TO 20 UNITS UNDER THE SKIN THREE TIMES DAILY BEFORE MEALS. Rx Instructions: INJECT UP TO 20 UNITS UNDER THE SKIN THREE TIMES DAILY BEFORE MEALS. clopidogrel [Plavix] 75 mg tablet 75 mg PO QAM 0RF Hold Instructions: Resume on 03/16/21. losartan 100 mg tablet 100 mg PO QPM 0RF tamsulosin 0.4 mg capsule 0.4 mg PO QPM 0RF nitroglycerin [Nitrostat] 0.4 mg Tablet, Sublingual 0.4 mg SUBLINGUAL Q5M PRN (Reason: Chest Pain) 0RF sotalol 80 mg tablet 120 mg PO BID 0RF triamcinolone acetonide 0.1 % cream 1 applic TOPICAL TID PRN (Reason: Rash) 0RF hydroxyzine HCl 10 mg tablet 10 mg PO QID PRN (Reason: Itching) 0RF hydralazine 50 mg tablet 50 mg PO BID 0RF Xarelto 20 mg tablet 20 mg PO BEDTIME 0RF Discharge Orders: Discharge ED (Routine); Ordered 12/12/21 Ordered By: Neno Ibanez Referrals: Bree Perkins MD [Primary Care Provider] - Discharge Diet: Clear Liquid Discharge Activity: Increase activity as tolerated Activity Restrictions/Additional Instructions: Follow-up with your primary care doctor if not improving. Coding Level of Care Code ED Measurement Technician for Chg Fwd Exam Comprehensive
[2021-12-12 12:06] LABS: Basophils # 0.1 10^3/uL (0.0-0.1); Basophils % 0.6 %; Eosinophils # 0.2 10^3/uL (0.0-0.8); Eosinophils % 2.1 %; Hematocrit 31.3 % (42.0-52.0); Hemoglobin 9.6 g/dL (11.7-16.6); Lymphocytes # 1.8 10^3/uL (0.8-4.8); Lymphocytes % 15.5 %; Mean Corpuscular HGB Conc 30.7 g/dL (30.0-36.0); Mean Corpuscular Hemoglobin 26.3 pg (28.0-34.0); Mean Corpuscular Volume 85.8 fl (80-94); Monocytes # 1.1 10^3/uL (0.2-0.9); Monocytes % 9.1 %; Neutrophils # 8.41 10^3/uL (1.8-7.7); Neutrophils % 72.4 %; Nucleated Red Blood Cells % 0 %; Platelet Count 477 10^3/cmm (130-400); Red Blood Count 3.65 10^6/uL (4.1-5.3); Red Cell Distribution Width 14.9 % (12.1-15.1); White Blood Count 11.6 10^3/uL (4.0-10.0)
[2021-12-12 12:24] LABS: Lactic Sepsis W/Reflex 1.2 mmol/L (0.5-2.2)
[2021-12-12 12:25] LABS: Alanine Aminotransferase 11 U/L (0-41); Albumin Level 2.8 g/dL (3.5-5.2); Alkaline Phosphatase 91 IU/L (40-130); Anion Gap 16.7 (5-19); Aspartate Amino Transferase 11 U/L (0-40); Blood Urea Nitrogen 27 mg/dL (8-23); Calcium 8.8 mg/dL (8.5-10.5); Carbon Dioxide 21 mmol/L (22-29); Chloride 98 mmol/L (98-107); Globulin 4.1 g/dL (1.3-4.6); Glucose 163 mg/dL (65-115); Lipase 19 U/L (13-60); Osmolality Calculated 283 mOsm/kg (285-295); Potassium 3.7 mmol/L (3.5-5.1); Sodium 132 mmol/L (136-145); Total Bilirubin 0.2 mg/dL (0.15-1.2); Total Protein 6.9 g/dL (6.6-8.7)
[2021-12-12 13:02] LABS: Troponin(5th) Baseline 34 ng/L (0-15)
[2021-12-12] MEDS: iodixanol 320 mg/mL 100mL Btl IV (13:04)
[2021-12-12 14:19] LABS: Glucose Point of Care 138 mg/dL (70-110)
[2021-12-12 14:30] LABS: Bilirubin Urine Neg (Negative); Blood Urine Neg (Negative); Glucose Urine UA Norm (Normal); Ketones Urine Negative (Negative); Leukocyte Esterase Urine Trace (Negative); Nitrate Urine Negative (Negative); Protein Urine 1+ (Negative); Urine Appearance Clear (CLEAR); Urine Color Yellow (Yellow); Urobilinogen Urine Neg (Negative); pH Urine 6 (5-7)
[2021-12-12 14:31] LABS: Add Urine Culture? No; Add Urine Microscopic? YES; Bacteria Urine TRACE /hpf; RBC Urine RARE /hpf (0-2); Squamous Epithelial Cell Urine RARE /hpf (0-5)
--- NOTE | 2021-12-12 14:39 | ECG_ITS ---
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 Measurements Intervals [place] Rate: 99 P: [place]: QRS: -46 QRSD: 101 T: 85 QT: 378 QTc: 487 Interpretive Statements ATRIAL FIBRILLATION LEFT AXIS DEVIATION [QRS AXIS < -30] NONSPECIFIC ST & T-WAVE ABNORMALITY Compared to ECG 12/12/2021 12:24:09 Left-axis deviation now present T-wave abnormality now present Myocardial infarct finding no longer present Electronically Signed On 12-13-2021 17:14:06 CDT by Luis Mast M.D. [email or web address] health [facility].[employer]/store/[id number]
[2021-12-12 15:19] VITALS: BP 121/93; PULSE 89; RESP 22; O2SAT 92
[2021-12-12 15:20] LABS: Troponin 5 2HR 32.48 ng/L (0-15)
[2021-12-12 15:27] LABS: Troponin 5 2HR Delta -1.52 ABS# (0-10)
== END 2021-12-12 15:55 | disposition home or self-care (01) ==
PROVIDERS: Emergency Medicine; Emergency Provider Family Medicine; PCP Family Medicine
DX: N30.90 Cystitis, unspecified without hematuria (principal); I48.91 Unspecified atrial fibrillation; C67.9 Malignant neoplasm of bladder, unspecified; N40.1 Benign prostatic hyperplasia with lower urinary tract symptoms; F17.210 Nicotine dependence, cigarettes, uncomplicated; I25.10 Atherosclerotic heart disease of native coronary artery without angina pectoris; E11.40 Type 2 diabetes mellitus with diabetic neuropathy, unspecified; I10 Essential (primary) hypertension; E11.51 Type 2 diabetes mellitus with diabetic peripheral angiopathy without gangrene; J44.9 Chronic obstructive pulmonary disease, unspecified; Z79.01 Long term (current) use of anticoagulants; Z95.5 Presence of coronary angioplasty implant and graft; Z79.4 Long term (current) use of insulin; Z79.02 Long term (current) use of antithrombotics/antiplatelets
CPT/HCPCS: 36416; 74174; 80053; 81001; 82962; 83605; 83690; 84484; 85025; 93005; 99284; Q9967

== ENCOUNTER → 2021-12-15 14:05 | Outpatient (BNVA) | payer MEDICARE, BC, SELFPAY | PROVIDERS: PCP Family Medicine; Visit Provider Urology | DX: N30.90 Cystitis, unspecified without hematuria (principal); N40.1 Benign prostatic hyperplasia with lower urinary tract symptoms; C67.8 Malignant neoplasm of overlapping sites of bladder | CPT/HCPCS: 81003; 87077; 87086; 87184 ==

== ENCOUNTER → 2021-12-28 14:52 | Outpatient (BNVA) | payer MEDICARE, BC, SELFPAY | PROVIDERS: PCP Family Medicine; Visit Provider Internal Medicine | DX: Z09 Encounter for follow-up examination after completed treatment for conditions other than malignant neoplasm (principal); I25.10 Atherosclerotic heart disease of native coronary artery without angina pectoris; E11.65 Type 2 diabetes mellitus with hyperglycemia; I71.4 Abdominal aortic aneurysm, without rupture; I65.29 Occlusion and stenosis of unspecified carotid artery; I73.9 Peripheral vascular disease, unspecified; E78.1 Pure hyperglyceridemia; I10 Essential (primary) hypertension; I48.20 Chronic atrial fibrillation, unspecified; F17.210 Nicotine dependence, cigarettes, uncomplicated; Z79.4 Long term (current) use of insulin; Z95.5 Presence of coronary angioplasty implant and graft; Z95.828 Presence of other vascular implants and grafts; Z79.01 Long term (current) use of anticoagulants | CPT/HCPCS: 99213 ==

== ENCOUNTER → 2022-01-08 15:24 | Outpatient (BNVA) | payer MEDICARE, BC, SELFPAY | PROVIDERS: PCP Family Medicine; Visit Provider Urology | DX: N40.1 Benign prostatic hyperplasia with lower urinary tract symptoms (principal); C67.9 Malignant neoplasm of bladder, unspecified; C67.8 Malignant neoplasm of overlapping sites of bladder | CPT/HCPCS: 81003 ==

== ENCOUNTER → 2022-01-16 15:42 | Outpatient (BNVA) | payer MEDICARE, BC, SELFPAY | PROVIDERS: PCP Family Medicine; Visit Provider Urology | DX: C67.8 Malignant neoplasm of overlapping sites of bladder (principal); C67.9 Malignant neoplasm of bladder, unspecified | CPT/HCPCS: 52224; 81003 ==

== ENCOUNTER 2022-01-31 14:03 | Oncology outpatient (recurring) (ONCR) | payer MEDICARE, BC, SELFPAY | END 2022-02-13 23:59 | disposition home or self-care (01) | PROVIDERS: PCP Family Medicine; Visit Provider Internal Medicine Hematology & Oncology | DX: C67.8 Malignant neoplasm of overlapping sites of bladder (principal); N40.1 Benign prostatic hyperplasia with lower urinary tract symptoms; R32 Unspecified urinary incontinence; E11.40 Type 2 diabetes mellitus with diabetic neuropathy, unspecified; I48.0 Paroxysmal atrial fibrillation; I25.119 Atherosclerotic heart disease of native coronary artery with unspecified angina pectoris; E11.65 Type 2 diabetes mellitus with hyperglycemia; Z79.4 Long term (current) use of insulin; F17.210 Nicotine dependence, cigarettes, uncomplicated | CPT/HCPCS: 99204; 99999 ==

== ENCOUNTER → 2022-02-22 09:12 | Outpatient (BNVA) | payer MEDICARE, BC, SELFPAY | PROVIDERS: PCP Family Medicine; Visit Provider Urology | DX: C67.9 Malignant neoplasm of bladder, unspecified (principal); C67.8 Malignant neoplasm of overlapping sites of bladder | CPT/HCPCS: 52000; 81003 ==

== ENCOUNTER → 2022-03-02 09:05 | Outpatient (BNVA) | payer MEDICARE, BC, SELFPAY | PROVIDERS: PCP Family Medicine; Visit Provider Urology | DX: C67.8 Malignant neoplasm of overlapping sites of bladder (principal) | CPT/HCPCS: 52224; 81003 ==

== ENCOUNTER 2022-03-07 09:00 | Oncology outpatient (recurring) (ONCR) | payer MEDICARE, BC, SELFPAY | END 2022-03-07 23:59 | disposition home or self-care (01) | PROVIDERS: PCP Family Medicine; Visit Provider Internal Medicine Hematology & Oncology | DX: C67.8 Malignant neoplasm of overlapping sites of bladder (principal); N40.1 Benign prostatic hyperplasia with lower urinary tract symptoms; R39.9 Unspecified symptoms and signs involving the genitourinary system; E11.40 Type 2 diabetes mellitus with diabetic neuropathy, unspecified; I48.0 Paroxysmal atrial fibrillation; I25.119 Atherosclerotic heart disease of native coronary artery with unspecified angina pectoris; F17.210 Nicotine dependence, cigarettes, uncomplicated; E11.65 Type 2 diabetes mellitus with hyperglycemia; Z79.4 Long term (current) use of insulin | CPT/HCPCS: 99214 ==

== ENCOUNTER → 2022-03-30 11:14 | Outpatient (BNVA) | payer MEDICARE, BC, SELFPAY | PROVIDERS: PCP Family Medicine; Visit Provider Urology | DX: C67.8 Malignant neoplasm of overlapping sites of bladder (principal) | CPT/HCPCS: 52224; 81003 ==

== ENCOUNTER 2022-04-11 14:42 | Emergency (ER) | payer MEDICARE, BC, SELFPAY ==
--- NOTE | 2022-04-11 14:46 | XRR_ITS ---
PROCEDURE INFORMATION: Exam: XR Chest Exam date and time: 04/11/2022 4:49 PM Age: 76 years old Clinical indication: Cough TECHNIQUE: Imaging protocol: Radiologic exam of the chest. Views: 1 view. COMPARISON: CR XR chest 1V portable [id number] 03/26/2021 12:26 PM FINDINGS: Lungs: Mild chronic interstitial changes in both lungs. No consolidation. Pleural spaces: Unremarkable. No pleural effusion. No pneumothorax. Heart/Mediastinum: Unremarkable. No cardiomegaly. Bones/joints: Degenerative changes of the thoracic spine. No visible fracture. XR/XR chest 1V portable [id number] IMPRESSION: No acute findings.
[2022-04-11 15:32] VITALS: BP 144/64; PULSE 68; RESP 18; TEMP 36.4; O2SAT 98; BMI 27.3
--- NOTE | 2022-04-11 15:45 | ECG_ITS ---
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 Measurements Intervals [place] Rate: 68 P: 55 AL: 165 QRS: -36 QRSD: 98 T: 93 QT: 401 QTc: 428 Interpretive Statements SINUS RHYTHM POSSIBLE LEFT ATRIAL ENLARGEMENT [-0.1mV P-WAVE IN V1/V2] INFERIOR MYOCARDIAL INFARCTION , OF INDETERMINATE AGE [40+ ms Q WAVE AND/OR ST/T ABNORMALITY IN II/aVF] MODERATE T-WAVE ABNORMALITY, CONSIDER LATERAL ISCHEMIA [-0.1+ mV T-WAVE IN I/aVL/V5/V6] INTERPRETATION BASED ON A DEFAULT AGE OF 40 YEARS Compared to ECG 12/12/2021 15:20:57 Myocardial infarct finding now present Possible ischemia now present Atrial fibrillation no longer present Electronically Signed On 04-11-2022 16:31:21 CDT by Luis Mast M.D. [email or web address] Semiconductortallahatchie general hospitaleFuneralst. charles hospital.[employer]/store/NU/[id number] f
[2022-04-11 16:19] LABS: Basophils % 0.1 %; Eosinophils % 0.1 %; Hematocrit 37.9 % (42.0-52.0); Hemoglobin 12.3 g/dL (11.7-16.6); Lymphocytes # 1.3 10^3/uL (0.8-4.8); Lymphocytes % 11.9 %; Mean Corpuscular HGB Conc 32.5 g/dL (30.0-36.0); Mean Corpuscular Hemoglobin 27.1 pg (28.0-34.0); Mean Corpuscular Volume 83.5 fl (80-94); Mean Platelet Volume 9.2 fL (7.4-10.4); Monocytes # 0.5 10^3/uL (0.2-0.9); Monocytes % 4.7 %; Neutrophils # 9.08 10^3/uL (1.8-7.7); Neutrophils % 82.8 %; Nucleated Red Blood Cells % 0 %; Platelet Count 299 10^3/cmm (130-400); Red Blood Count 4.54 10^6/uL (4.1-5.3); Red Cell Distribution Width 18.4 % (12.1-15.1)
--- NOTE | 2022-04-11 16:46 | ECG_ITS ---
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 Measurements Intervals [place] Rate: 67 P: 68 IN: 181 QRS: -43 QRSD: 100 T: 91 QT: 403 QTc: 428 Interpretive Statements SINUS RHYTHM POSSIBLE LEFT ATRIAL ENLARGEMENT [-0.1mV P-WAVE IN V1/V2] INFERIOR MYOCARDIAL INFARCTION , OF INDETERMINATE AGE [40+ ms Q WAVE AND/OR ST/T ABNORMALITY IN II/aVF] MODERATE T-WAVE ABNORMALITY, CONSIDER LATERAL ISCHEMIA [-0.1+ mV T-WAVE IN I/aVL/V5/V6] Compared to ECG 04/11/2022 15:45:15 No significant changes Electronically Signed On 04-12-2022 21:33:03 CDT by Gloria Lucas M.D. [email or web address] [facility].[employer]/store/Ov/[id number]
--- NOTE | 2022-04-11 16:46 | W.ED.SOB ---
HPI - SOB/Dyspnea General: Chief Complaint: Shortness of Breath/Dyspnea Stated Complaint: dizziness, cough, and swelling of the legs Time Seen by Provider: 04/11/22 16:45 History of Present Illness: HPI Narrative: 76-year-old male patient comes in today for complaints of cough at night. His spouse reports that the cough is really harsh and seems to be worse at night than during the day. Patient does have a history of CHF, diabetes mellitus, chronic sinus issues, atrial fibs, CAD, BPH, and anticoagulation. Patient appears nontoxic. Patient reports no chest pain at this time. Patient reports no increase in shortness of breath. Associated symptoms: Deny chest pain, nausea or vomiting Review of Systems General: Reports: 10 or more systems reviewed and unremarkable except in HPI and below ENMT: Reports: nasal discharge Card: Denies: chest pain Resp: Reports: non-productive cough; Denies: dyspnea GI: Denies: nausea or vomiting : Denies: difficulty urinating PFSH ED PFSH: Medical History Abdominal aortic aneurysm (AAA) Afib Anticoagulation adequate with anticoagulant therapy Atrial fibrillation with RVR Patient converted to normal sinus rhythm with home dose of sotalol. Bladder cancer Low-grade noninvasive papillary urothelial carcinoma plan cystoscopy done in December 2020, status post intravesical mitomycin after each cystoscopy and status post induction therapy with weekly BCG intravesically from August 18, 2021 through September 22, 2021 Follow-up cystoscopy done on January 16, 2022 showed persistent/recurrence low-grade urothelial carcinoma status post fulguration followed by postop intravesical mitomycin. BPH loc w urin obs/LUTS Started on TAMSULOSIN March 2021 for chronic BPH symptoms Carotid stenosis COPD (chronic obstructive pulmonary disease) Coronary artery disease Diabetes mellitus Diabetic neuropathy Erectile dysfunction HTN (hypertension), benign Hypertriglyceridemia Peripheral arterial disease Proteinuria Tobacco abuse Adamantly refuses to quit after multiple sessions of counseling Surgical History H/O heart artery stent History of abdominal aortic aneurysm (AAA) repair History of bladder surgery History of carotid endarterectomy Hx of appendectomy Previous back surgery S/P femoral-popliteal bypass surgery S/P right coronary artery (RCA) stent placement hx of Distal RCA and Prox RCA Family History Father , in his 80's Stroke Mother , at age 83 Diabetes Social History Smoking and tobacco status: current every day smoker cigarettes Packs smoked per day: 1 Alcohol intake: never Household members: spouse Marital status: service: Yes branch: [employer] Current occupational status: retired History of recent travel: No Physical Exam Const: COMMON NORMALS: alert HENMT: COMMON NORMALS: normocephalic and TM's normal bilaterally HEAD & SCALP: normocephalic NOSE: Normal nares present TYMPANIC MEMBRANE: TM's normal bilaterally THROAT: posterior oropharynx normal Neck/C-Spine: COMMON NORMALS: full ROM Resp: COMMON NORMALS: normal respiratory effort AUSCULTATION: diminished lung sounds Cardio: COMMON NORMALS: regular rate and regular rhythm RATE: regular rate RHYTHM: regular rhythm GI: COMMON NORMALS: Soft to palpation and non-tender PALPATION: Yes Soft to palpation Extremity: NARRATIVE EXTREMITY EXAM: Patient has mild edema to bilateral lower extremities with worse being on the right. Patient reports no calf pain or significant changes in his swelling. RIGHT LOWER EXTREMITY: Yes lower leg (Mild edema) Neuro: SENSORIUM/ORIENTATION: Yes alert Skin: COMMON NORMALS: no rashes or lesions noted GENERAL SKIN EXAM: no rashes or lesions noted Course Vital Signs: Vital signs: Vital Signs Temperature 97.6 F 04/11/22 15:32 Pulse Rate 68 04/11/22 15:32 Respiratory Rate 18 04/11/22 15:32 Blood Pressure 144/64 04/11/22 15:32 Pulse Oximetry 98 04/11/22 15:32 Oxygen Delivery Me thod 04/11/22 15:32 MDM - SOB/Dyspnea Medical Decision Making 76-year-old male patient comes in today for complaints of nasal drainage and a cough at night. On exam patient appears nontoxic. Lungs are decreased in the bases. Heart rates regular. Patient does have some mild edema to bilateral lower extremities with worse being on the right. Patient is on antibiotics at this time for his sinus infection and cellulitis of the leg. Spouse states that she had talked to the office yesterday and they had changed his antibiotic. But patient continues to have a persistent cough at night and a lot of nasal drainage. Differential diagnosis includes but not limited to CHF, pneumonia, rhinosinusitis, postnasal drip. Laboratory values were at patient's baseline for his troponin and his BNP. CBC and CMP were also at patient's baseline. I believe patient probably just has some postnasal drip I talked with him about using some cetirizine but they report already using Benadryl and hydroxyzine occasionally. I feel that patient probably benefit more from cetirizine and recommended using that at bedtime. Patient was also given a dose of dexamethasone and given 1 dose of Bicillin per patient's request. Recommend otherwise continue with routine care and follow-up with primary care. Lab Data : 04/11/22 16:00 04/11/22 16:00 Labs/Radiology: Radiology Impressions Chest X-Ray 04/11/22 14:46 IMPRESSION: No acute findings. Laboratory Results WBC 11.0 10^3/uL (4.0-10.0) H 04/11/22 16:00 RBC 4.54 10^6/uL (4.1-5.3) 04/11/22 16:00 Hgb 12.3 g/dL (11.7-16.6) 04/11/22 16:00 Hct 37.9 % (42.0-52.0) L 04/11/22 16:00 MCV 83.5 fl (80-94) 04/11/22 16:00 MCH 27.1 pg (28.0-34.0) L 04/11/22 16:00 MCHC 32.5 g/dL (30.0-36.0) 04/11/22 16:00 RDW 18.4 % (12.1-15.1) H 04/11/22 16:00 Plt Count 299 10^3/cmm (130-400) 04/11/22 16:00 MPV 9.2 fL (7.4-10.4) 04/11/22 16:00 Neut % (Auto) 82.8 % 04/11/22 16:00 Lymph % (Auto) 11.9 % 04/11/22 16:00 [place] % (Auto) 4.7 % 04/11/22 16:00 Eos % (Auto) 0.1 % 04/11/22 16:00 Baso % (Auto) 0.1 % 04/11/22 16:00 Neut # (Auto) 9.08 10^3/uL (1.8-7.7) H 04/11/22 16:00 Lymph # (Auto) 1.3 10^3/uL (0.8-4.8) 04/11/22 16:00 [place] # (Auto) 0.5 10^3/uL (0.2-0.9) 04/11/22 16:00 Eos # (Auto) 0.0 10^3/uL (0.0-0.8) 04/11/22 16:00 Baso # (Auto) 0.0 10^3/uL (0.0-0.1) 04/11/22 16:00 Nucleated RBC % (auto) 0 % 04/11/22 16:00 Nucleated RBCs # 0.0 /100WBC 04/11/22 16:00 Sodium 139 mmol/L (136-145) 04/11/22 16:00 Potassium 4.1 mmol/L (3.5-5.1) 04/11/22 16:00 Chloride 101 mmol/L (98-107) 04/11/22 16:00 Carbon Dioxide 27 mmol/L (22-29) 04/11/22 16:00 Anion Gap 15.1 (5-19) 04/11/22 16:00 BUN 39 mg/dL (8-23) H 04/11/22 16:00 Creatinine 1.3 mg/dL (0.7-1.2) H 04/11/22 16:00 GFR Calculation Not Reportable 04/11/22 16:00 Glucose 147 mg/dL (65-115) H 04/11/22 16:00 Calculated Osmolality 300 mOsm/kg (285-295) H 04/11/22 16:00 Calcium 8.9 mg/dL (8.5-10.5) 04/11/22 16:00 Total Bilirubin 0.2 mg/dL (0.15-1.2) 04/11/22 16:00 AST 10 U/L (0-40) 04/11/22 16:00 ALT 13 U/L (0-41) 04/11/22 16:00 Alkaline Phosphatase 62 IU/L (40-130) 04/11/22 16:00 Troponin T Baseline 24 ng/L (0-15) H 04/11/22 16:00 NT-Pro-B Natriuret Pep 2363 pg/mL (0-450) H 04/11/22 16:00 Total Protein 6.0 g/dL (6.6-8.7) L 04/11/22 16:00 Albumin 3.7 g/dL (3.5-5.2) 04/11/22 16:00 Globulin 2.3 g/dL (1.3-4.6) 04/11/22 16:00 Discharge Plan Discharge Patient Disposition: Home Clinical Impression: PND (post-nasal drip), Rhinosinusitis Condition: Stable Prescriptions: New cetirizine 10 mg tablet 10 mg PO .hs Qty: 30 2RF No Action duloxetine [Cymbalta] 20 mg capsule,delayed release(DR/EC) 20 mg PO QAM sucralfate 1 gram tablet 1 g PO QID PRN (Reason: UNKNOWN) amlodipine 10 mg tablet 10 mg PO QAM ferrous sulfate 325 mg (65 mg iron) tablet 325 mg PO QAM pantoprazole 40 mg tablet,delayed release (DR/EC) 40 mg PO BID chlorthalidone 25 mg tablet 25 mg PO QAM tamsulosin 0.4 mg capsule 0.4 mg PO QPM Qty: 90 3RF prednisone 10 mg tablet 10 mg PO DAILY metformin 500 mg tablet 500 mg PO BID insulin aspart U-100 [Novolog Flexpen U-100 Insulin] 100 unit/mL (3 mL) insulin pen See Rx Instructions .ROUTE .COMPLEX Qty: 54 6RF Dose Instruction: INJECT UP TO 20 UNITS UNDER THE SKIN THREE TIMES DAILY BEFORE MEALS. Rx Instructions: INJECT UP TO 20 UNITS UNDER THE SKIN THREE TIMES DAILY BEFORE MEALS. Lantus Solostar U-100 Insulin 100 unit/mL (3 mL) insulin pen 40 unit SUBCUT QPM Qty: 15 3RF furosemide [Lasix] 20 mg tablet 20 mg PO DAILY potassium chloride 10 mEq capsule, extended release 10 meq PO DAILY (DME) pen needle, diabetic [TechLITE Pen Needle] 32 gauge x 5/32 needle See Rx Instructions .Route Qty: 400 0RF Rx Instructions: test 4 times daily clopidogrel [Plavix] 75 mg tablet 75 mg PO QAM Hold Instructions: Resume on 11/20/21. losartan 100 mg tablet 100 mg PO QPM nitroglycerin [Nitrostat] 0.4 mg Tablet, Sublingual 0.4 mg SUBLINGUAL Q5M PRN (Reason: Chest Pain) sotalol 80 mg tablet 120 mg PO BID triamcinolone acetonide 0.1 % cream 1 applic TOPICAL TID PRN (Reason: Rash) hydroxyzine HCl 10 mg tablet 10 mg PO QID PRN (Reason: Itching) hydralazine 50 mg tablet 50 mg PO BID Xarelto 20 mg tablet 20 mg PO BEDTIME simvastatin 20 mg tablet 20 mg PO QPM Qty: 30 0RF Discharge Orders: Discharge ED (Routine); Ordered 04/11/22 Ordered By: Alexy Reagan Referrals: Bree Perkins MD [Primary Care Provider] - Discharge Diet: Usual diet Discharge Activity: Increase activity as tolerated Patient Instructions: Postnasal Drip (DC) Activity Restrictions/Additional Instructions: Take cetirizine 1 hour before bedtime. Drink plenty water with medication. Continue with routine medication otherwise as prescribed. Follow-up with primary care in 1 week, return to ER for worsening symptoms such as fever greater than 100.4, or new concerns. Coding Level of Care Code ED Redevelopment Manager for Sarah Fwd Exam Comprehensive
[2022-04-11 16:59] LABS: Troponin(5th) Baseline 24 ng/L (0-15)
[2022-04-11 17:03] LABS: Alanine Aminotransferase 13 U/L (0-41); Albumin Level 3.7 g/dL (3.5-5.2); Alkaline Phosphatase 62 IU/L (40-130); Anion Gap 15.1 (5-19); Aspartate Amino Transferase 10 U/L (0-40); Blood Urea Nitrogen 39 mg/dL (8-23); Calcium 8.9 mg/dL (8.5-10.5); Carbon Dioxide 27 mmol/L (22-29); Chloride 101 mmol/L (98-107); Globulin 2.3 g/dL (1.3-4.6); Glucose 147 mg/dL (65-115); NT Pro B Type Natriuretic Pept 2363 pg/mL (0-450); Osmolality Calculated 300 mOsm/kg (285-295); Potassium 4.1 mmol/L (3.5-5.1); Sodium 139 mmol/L (136-145); Total Bilirubin 0.2 mg/dL (0.15-1.2)
[2022-04-11 17:06] LABS: Creatinine Clr Calc Pharmacy 49.5914
[2022-04-11] MEDS: dexamethasone 10 mg/mL INJ IM (17:35)
[2022-04-11 17:50] VITALS: BP 178/75; PULSE 68; TEMP 36.8; O2SAT 99
--- NOTE | 2022-04-11 17:52 | PC.NURSE ---
Cardiac monitoring on hold per Imtiaz Reagan.
[2022-04-11 18:01] VITALS: BP 178/75; PULSE 68; TEMP 36.8; O2SAT 99
== END 2022-04-11 17:58 | disposition home or self-care (01) ==
PROVIDERS: Emergency Provider Nurse Practitioner Family; PCP Family Medicine
DX: J32.9 Chronic sinusitis, unspecified (principal); Z79.4 Long term (current) use of insulin; Z79.02 Long term (current) use of antithrombotics/antiplatelets; Z85.51 Personal history of malignant neoplasm of bladder; J44.9 Chronic obstructive pulmonary disease, unspecified; I25.10 Atherosclerotic heart disease of native coronary artery without angina pectoris; E11.40 Type 2 diabetes mellitus with diabetic neuropathy, unspecified; I10 Essential (primary) hypertension; F17.210 Nicotine dependence, cigarettes, uncomplicated
CPT/HCPCS: 36415; 71045; 80053; 83880; 84484; 85025; 93005; 96372; 99285; J0561; J1100

== ENCOUNTER → 2022-05-02 14:41 | Outpatient (BNVA) | payer MEDICARE, BC, SELFPAY | PROVIDERS: PCP Family Medicine; Visit Provider Nurse Practitioner Family | DX: I48.91 Unspecified atrial fibrillation (principal); I10 Essential (primary) hypertension; R60.0 Localized edema; F17.210 Nicotine dependence, cigarettes, uncomplicated | CPT/HCPCS: 99214 ==

== ENCOUNTER → 2022-05-04 11:45 | Outpatient (BNVA) | payer MEDICARE, BC, SELFPAY | PROVIDERS: PCP Family Medicine; Visit Provider Urology | DX: C67.8 Malignant neoplasm of overlapping sites of bladder (principal) | CPT/HCPCS: 52224; 81003; J9280 ==

== ENCOUNTER 2022-05-07 11:45 | Outpatient (CLI) | payer MEDICARE, BC, SELFPAY ==
[2022-05-07 13:12] LABS: Anion Gap 16.1 (5-19); Blood Urea Nitrogen 26 mg/dL (8-23); Calcium 8.6 mg/dL (8.5-10.5); Carbon Dioxide 28 mmol/L (22-29); Chloride 96 mmol/L (98-107); Glucose 230 mg/dL (65-115); NT Pro B Type Natriuretic Pept 1579 pg/mL (0-450); Osmolality Calculated 296 mOsm/kg (285-295); Potassium 3.1 mmol/L (3.5-5.1); Sodium 137 mmol/L (136-145)
== END 2022-05-07 11:46 | disposition home or self-care (01) ==
LOC: LAB 11:49
PROVIDERS: PCP Family Medicine; Visit Provider Nurse Practitioner Family
DX: R60.0 Localized edema (principal)
CPT/HCPCS: 36415; 80048; 83880

== ENCOUNTER 2022-05-08 15:58 | Outpatient (CLI) | payer MEDICARE, BC, SELFPAY ==
--- NOTE | 2022-05-08 16:04 | CT_ITS ---
WS: [id number] CT CHEST TECHNIQUE: Contrast enhanced CT of the chest with coronal and sagittal reformatted images. CLINICAL INFORMATION: CHRONIC COUGH, TOBACCO USE COMPARISON: March 26, 2021 DLP: 690.[address] scans at [facility] use at least one of these dose optimization techniques: automated e xposure control; mA and/or kV adjustment per patient size (includes targeted exams where dose is matc hed to clinical indication); or iterative reconstruction. FINDINGS: Moderate chronic emphysematous changes. No acute pulmonary infiltrates. Fibrosis in the RIGHT greater than LEFT lung apices. Calcified granuloma RIGHT lower lobe. Mild thickening LEFT adrenal gland. Diffuse fatty infiltration liver. A few calcified hepatic and sp lenic granulomas. Small esophageal hiatal hernia. LEFT renal cyst measuring 4.2 CM. Aortic calcification. Coronary calcification. No axillary lymphadenopathy. Bronchovascular thickening of the RIGHT hilum with calcified RIGHT hilar and subcarinal lymph nodes. Prominent noncalcified RIG HT hilar lymph nodes measuring 11 mm with bronchovascular thickening along the RIGHT hilum. These walter ear unchanged since March 26, 2021 and may be reactive. Normal sized anterior mediastinal and peribron chial lymph nodes. Moderate thoracic kyphosis with ankylosis. Subcutaneous nodule in the RIGHT upper abdominal soft tis sues measuring 12 mm unchanged since March 26, [address]/CT chest w con* [id number] IMPRESSION: 1. Moderate chronic emphysematous changes. No acute pulmonary infiltrates. 2. No suspicious pulmonary parenchymal opacities. 3. Prominent RIGHT hilar and subcarinal lymph nodes. RIGHT hilar lymph node me asuring 11 mm unchanged since 2020. These are nonspecific but may be reactive. Bronchovascular thickening along the RIGHT hilum. Some of these are calcified. Recommend 6 month follow-up contrast enhanced chest CT. 4. Small esophageal hiatal hernia. 5. LEFT renal cyst measuring 4.2 cm partially visualized.
[2022-05-08] MEDS: iohexol 350 mg/mL 100 mL Btl IV (16:28)
== END 2022-05-08 15:59 | disposition home or self-care (01) ==
PROVIDERS: PCP Family Medicine; Visit Provider Family Medicine
DX: R05.3 Chronic cough (principal); Z72.0 Tobacco use; N28.1 Cyst of kidney, acquired; K44.9 Diaphragmatic hernia without obstruction or gangrene; I11.0 Hypertensive heart disease with heart failure; I50.9 Heart failure, unspecified; R49.0 Dysphonia; I65.29 Occlusion and stenosis of unspecified carotid artery; G93.89 Other specified disorders of brain; I63.9 Cerebral infarction, unspecified
CPT/HCPCS: 70491; 71260; 99213

== ENCOUNTER 2022-05-08 15:59 | Outpatient (CLI) | payer MEDICARE, BC, SELFPAY ==
--- NOTE | 2022-05-08 16:02 | CT_ITS ---
WS: [id number] CT NECK TECHNIQUE: Contrast-enhanced CT of the neck with coronal and sagittal reformatted images. CLINICAL INFORMATION: CHRONIC COUGH, DYSPHONIA COMPARISON: None. DLP: 290.[address] scans at [facility] use at least one of these dose optimization techniques: automated e xposure control; mA and/or kV adjustment per patient size (includes targeted exams where dose is matc hed to clinical indication); or iterative reconstruction. FINDINGS:No cervical lymphadenopathy. Dense cavernous carotid ICA calcification. Severe LEFT and mode rate RIGHT ICA narrowing. This can be further evaluated with CTA. Parotid glands are normal. Submandibular glands are normal. No evidence of supraglottic or glottic mass. Normal piriform sinuses. Normal epiglottis. Subglottic a irway is patent. 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 Dense cavernous caroti d calcification. Mastoid air cells are well aerated. Paranasal sinuses are well aerated. Dental artif act degrades images at the skull base. Moderate spondylitic changes with slight retrolisthesis C5 on C6. Anterior hypertrophic changes C5-C6. Vascular calcification involving the great vessels. CT/CT neck w con* [id number] IMPRESSION: 1. No evidence of supraglottic or glottic mass. Subglottic airway is patent. 2. Normal posterior nasopharynx. Normal parapharyngeal fat. 3. No cervical lymphadenopathy. 4. Dense cavernous carotid ICA calcification. Recommend Further evaluation wit h CTA neck. 5. Normal salivary glands. 6. 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
[2022-05-08] MEDS: iohexol 350 mg/mL 100 mL Btl IV (16:26)
== END 2022-05-08 16:00 | disposition home or self-care (01) ==
PROVIDERS: PCP Family Medicine; Visit Provider Otolaryngology
DX: R05.3 Chronic cough (principal); R49.0 Dysphonia; I65.29 Occlusion and stenosis of unspecified carotid artery; G93.89 Other specified disorders of brain; I63.9 Cerebral infarction, unspecified
CPT/HCPCS: 70491

== ENCOUNTER 2022-05-14 15:08 | Outpatient (CLI) | payer MEDICARE, BC, SELFPAY ==
[2022-05-14 16:00] LABS: Anion Gap 13.3 (5-19); Blood Urea Nitrogen 32 mg/dL (8-23); Calcium 8.8 mg/dL (8.5-10.5); Carbon Dioxide 32 mmol/L (22-29); Chloride 94 mmol/L (98-107); Glucose 218 mg/dL (65-115); NT Pro B Type Natriuretic Pept 1036 pg/mL (0-450); Osmolality Calculated 296 mOsm/kg (285-295); Potassium 3.3 mmol/L (3.5-5.1); Sodium 136 mmol/L (136-145)
== END 2022-05-14 15:09 | disposition home or self-care (01) ==
LOC: LAB 15:10
PROVIDERS: PCP Family Medicine; Visit Provider Nurse Practitioner Family
DX: I50.9 Heart failure, unspecified (principal)
CPT/HCPCS: 36415; 80048; 83880

== ENCOUNTER 2022-05-29 05:59 | Outpatient (CLI) | payer MEDICARE, BC, SELFPAY ==
--- NOTE | 2022-05-29 06:15 | USCV_ITS ---
Ashvin Hickey Age: 77 Gender: M : 1945 Exam Date: 05/29/2022 06:14 Ordering Phys: Ginna Barnes Technologist: Exam Location: [facility] [place] Indication: RT LEG SWELLING PROCEDURES: Venous duplex imaging was performed in only the right lower extremity. The following venous structures were evaluated: common femoral vein, profunda vein, proximal portion of the greater saphenous vein, superficial femoral vein, and the popliteal vein. In addition, the posterior tibial and peroneal trunk were evaluated. FINDINGS: Normal 2-D Doppler and augmentation and compressibility throughout the lower extremity venous structures. Additional imaging through the proximal calf veins also reveals no thrombus. Limited evaluation of the greater saphenous vein is patent with no thrombus. CONCLUSIONS No DVT right lower extremity. Dr. Richelle Birmingham DO (Electronically Signed) Final Date: 29 May 2022 10:18 S
== END 2022-05-29 06:00 | disposition home or self-care (01) ==
LOC: RAD 06:02
PROVIDERS: PCP Family Medicine; Visit Provider Nurse Practitioner Family
DX: M79.89 Other specified soft tissue disorders (principal)
CPT/HCPCS: 93971

== ENCOUNTER → 2022-05-30 08:21 | Outpatient (BNVA) | payer MEDICARE, BC, SELFPAY | PROVIDERS: PCP Family Medicine; Visit Provider Nurse Practitioner Family | DX: I96 Gangrene, not elsewhere classified (principal); L97.822 Non-pressure chronic ulcer of other part of left lower leg with fat layer exposed | CPT/HCPCS: 11042; 99203; 99213; A6021 ==

== ENCOUNTER → 2022-06-01 11:22 | Outpatient (BNVA) | payer MEDICARE, BC, SELFPAY | PROVIDERS: PCP Family Medicine; Visit Provider Urology | DX: C67.8 Malignant neoplasm of overlapping sites of bladder (principal); N40.1 Benign prostatic hyperplasia with lower urinary tract symptoms; D09.0 Carcinoma in situ of bladder | CPT/HCPCS: 52224; J9280 ==

== ENCOUNTER → 2022-06-06 09:39 | Outpatient (BNVA) | payer MEDICARE, BC, SELFPAY | PROVIDERS: PCP Family Medicine; Visit Provider Thoracic Surgery (Cardiothoracic Vascular Surgery) | DX: I73.9 Peripheral vascular disease, unspecified (principal); L97.822 Non-pressure chronic ulcer of other part of left lower leg with fat layer exposed | CPT/HCPCS: 97597; A6021 ==

== ENCOUNTER 2022-06-07 11:37 | Outpatient (CLI) | payer MEDICARE, BC, SELFPAY ==
--- NOTE | 2022-06-07 11:46 | CT_ITS ---
WS: [id number] CTA NECK TECHNIQUE: Contrast enhanced CTA of the neck with coronal and sagittal reformatted images and maximum intensity projection (MIP) images. NASCET criteria utilized. CLINICAL INFORMATION: OCCLUSION STENOSIS OF BILATERAL CAROTID ARTERIES COMPARISON: None. DLP: 299.[address] scans at [facility] use at least one of these dose optimization techniques: automated e xposure control; mA and/or kV adjustment per patient size (includes targeted exams where dose is matc hed to clinical indication); or iterative reconstruction. FINDINGS: RIGHT: RIGHT common carotid artery is patent. Moderate calcified atheromatous plaque RIGHT carotid bu lb extending into the ICA. RIGHT ICA stenosis measures 51%. RIGHT ICA is patent to the skull base. De nsely calcified cavernous carotid calcification. LEFT: LEFT common carotid artery is patent. Mild stenosis of the LEFT common carotid artery origin. M oderate calcified atheromatous plaque LEFT bulb extending into the ICA. LEFT ICA stenosis measures 60 %. LEFT ICA remains patent to the skull base. Dense cavernous carotid calcification. Severe LEFT ECA origin stenosis RIGHT vertebral artery is dominant and patent. Severe stenosis of the LEFT vertebral artery origin wi th segmental flow in the mid and distal LEFT vertebral artery. LEFT vertebral artery is patent distal ly to the vertebrobasilar junction. Proximal basilar artery is patent. Mastoid air cells are well aerated. Paranasal sinuses are well aerated. Carotid glands are normal. No rmal submandibular glands. Normal posterior nasopharynx. Normal parapharyngeal fat. Fibrosis in the l anne-marie apices. Moderate spondylitic changes cervical spine. Slight retrolisthesis C5 on C6. Partially vi sualized low-attenuation change in the LEFT occipital lobe likely due to chronic LEFT occipital infar ct. This is only partially visualized. IMPRESSION: 1. RIGHT ICA stenosis measures 51% 2. LEFT ICA stenosis measures 60% 3. Mild stenosis of the LEFT common carotid artery origin. 4. RIGHT vertebral artery is dominant and patent. Severe stenosis of the LEFT vertebral artery origi n with segmental flow in the mid and distal LEFT vertebral artery. 5. Low-attenuation change LEFT occipital lobe likely due to chronic infarct but only partially visua lized. This can be further evaluated with head CT or MRI. 6. Mild mucosal thickening LEFT maxillary sinus. 7. Moderate spondylitic changes cervical spine.
== END 2022-06-07 11:38 | disposition home or self-care (01) ==
LOC: RAD 11:38
PROVIDERS: PCP Family Medicine; Visit Provider Family Medicine
DX: I65.23 Occlusion and stenosis of bilateral carotid arteries (principal)
CPT/HCPCS: 70498; Q9967

== ENCOUNTER → 2022-06-13 09:37 | Outpatient (BNVA) | payer MEDICARE, BC, SELFPAY | PROVIDERS: PCP Family Medicine; Visit Provider Thoracic Surgery (Cardiothoracic Vascular Surgery) | DX: I73.9 Peripheral vascular disease, unspecified (principal); L97.822 Non-pressure chronic ulcer of other part of left lower leg with fat layer exposed; N40.1 Benign prostatic hyperplasia with lower urinary tract symptoms | CPT/HCPCS: 81003; 97597 ==

== ENCOUNTER 2022-06-20 14:21 | Outpatient (CLI) | payer MEDICARE, BC, SELFPAY ==
--- NOTE | 2022-06-20 14:30 | CT_ITS ---
WS: [id number] CTA ABDOMINAL AORTA WITH RUNOFF TECHNIQUE: Contrast enhanced CTA of the abdominal aorta with bilateral lower extremity runoff. Multip lanar reformatted images were obtained. MIP reformats were also reviewed. CLINICAL INFORMATION: abnormal NATALY- 0.29 COMPARISON: December 12 2021 DLP: 920.[address] scans at [facility] use at least one of these dose optimization techniques: automated e xposure control; mA and/or kV adjustment per patient size (includes targeted exams where dose is matc hed to clinical indication); or iterative reconstruction. FINDINGS: Diffuse fatty infiltration liver. Normal portal vein and splenic vein. Normal spleen. Small esophageal hiatal hernia. Fibrosis in the lung bases. Adrenal glands are normal. Fatty atrophy of the pancreas. Simple LEFT renal cysts. Aortic endograft b iiliac extension. 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 Mild stenosis at the c eliac origin with dense calcification. SMA stent is patent. LEFT renal artery is patent. Mild stenosis RIGHT renal artery ostia with dense calcification appears unchanged. Diffuse bladder wall thickening. Enlarged prostate measuring 3.5 x 3.7 CM. Recommend correlation PSA. Mild bladder outlet obstruction. Sigmoid diverticulosis. No evidence of acute diverticulitis. Modera te central canal stenosis L4-L5 with laminectomy defects. RIGHT: RIGHT common iliac stent. External iliac stent is patent. Densely calcified occluded internal iliac artery. RIGHT common femoral artery is patent. Femoropopliteal bypass graft is patent. Segmenta l areas of moderate narrowing involving the proximal, mid and distal aspects of the graft which remai n patent. Deep femoral artery is patent. Femoropopliteal bypass graft patent to the popliteal anastom osis. Popliteal stent is patent. Mild narrowing of the popliteal artery [id number] with dominant two-vessel runoff to the ankle. Poor flow in the distal peroneal artery. LEFT: LEFT common iliac stent is patent. LEFT external iliac artery is patent. Occluded internal nettie c artery. LEFT common femoral artery is patent. Occluded femoral popliteal bypass graft. Deep femoral artery is patent. Femoropopliteal bypass graft is occluded at the origin. [place] SFA with prior sten t is occluded. Small amount of flow above the knee in a tiny reconstituted popliteal artery. Tiny pop liteal artery is patent to the trifurcation with diminutive three-vessel runoff to the ankle. Poor fl ow in the anterior tibial artery. CT/CT angio abd aorta runof [id number] IMPRESSION: 1. RIGHT: Common iliac and external iliac stents are patent. . RIGHT common fe moral artery is patent. Femoropopliteal bypass graft is patent. Popliteal stent s are patent. Mild narrowing of the popliteal artery [id number] with domina nt two-vessel runoff to the ankle. Poor flow in the distal peroneal artery. 2. RIGHT: Segmental areas of moderate in graft stenosis involving the femoral popliteal bypass graft which remains patent. 3. LEFT:LEFT common iliac stent is patent. LEFT external iliac artery is paten t. LEFT common femoral artery is patent. Occluded Femoropopliteal bypass graft. [place] SFA with prior stent is occluded. Femoropopliteal bypass graft is occlu ded to the distal anastomosis. Small amount of reconstituted flow above the kne e in the popliteal artery. Tiny popliteal artery is patent to the trifurcation with diminutive three-vessel runoff to the ankle. Poor flow in the anterior tib ial artery. 4. Aortic endograft with biiliac extension. Excluded aneurysm sac measures 3.0 x 3.1 cm AP by transverse is unchanged. 5. Mild stenosis at the celiac origin. SMA stent is patent. 6. Both renal arteries are patent. Mild stenosis RIGHT renal artery origin. 7. Additional nonvascular findings
[2022-06-20] MEDS: iohexol 350 mg/mL 100 mL Btl IV (15:02)
== END 2022-06-20 14:22 | disposition home or self-care (01) ==
LOC: RAD 14:21
PROVIDERS: PCP Family Medicine; Visit Provider Nurse Practitioner Family
DX: R78.89 Finding of other specified substances, not normally found in blood (principal); I70.1 Atherosclerosis of renal artery; I73.9 Peripheral vascular disease, unspecified; L97.822 Non-pressure chronic ulcer of other part of left lower leg with fat layer exposed
CPT/HCPCS: 75635; 97597; A6021

== ENCOUNTER → 2022-06-27 08:48 | Outpatient (BNVA) | payer MEDICARE, BC, SELFPAY | PROVIDERS: PCP Family Medicine; Visit Provider Thoracic Surgery (Cardiothoracic Vascular Surgery) | DX: I73.9 Peripheral vascular disease, unspecified (principal); L97.812 Non-pressure chronic ulcer of other part of right lower leg with fat layer exposed | CPT/HCPCS: 99212 ==

== ENCOUNTER → 2022-06-28 13:40 | Outpatient (BNVA) | payer MEDICARE, BC, SELFPAY | PROVIDERS: PCP Family Medicine; Visit Provider Internal Medicine | DX: I73.9 Peripheral vascular disease, unspecified (principal); E11.65 Type 2 diabetes mellitus with hyperglycemia; Z79.4 Long term (current) use of insulin; I25.119 Atherosclerotic heart disease of native coronary artery with unspecified angina pectoris; I10 Essential (primary) hypertension; F17.210 Nicotine dependence, cigarettes, uncomplicated; I48.91 Unspecified atrial fibrillation | CPT/HCPCS: 99214 ==

== ENCOUNTER → 2022-07-06 11:30 | Outpatient (BNVA) | payer MEDICARE, BC, SELFPAY | PROVIDERS: PCP Family Medicine; Visit Provider Urology | DX: C67.8 Malignant neoplasm of overlapping sites of bladder (principal); F17.290 Nicotine dependence, other tobacco product, uncomplicated; Z79.01 Long term (current) use of anticoagulants | CPT/HCPCS: 52224; 81003; J9280 ==

== ENCOUNTER → 2022-07-12 14:40 | Outpatient (BNVA) | payer MEDICARE, BC, SELFPAY | PROVIDERS: PCP Family Medicine; Visit Provider Thoracic Surgery (Cardiothoracic Vascular Surgery) | DX: I65.23 Occlusion and stenosis of bilateral carotid arteries (principal); F17.210 Nicotine dependence, cigarettes, uncomplicated | CPT/HCPCS: 99203 ==

== ENCOUNTER → 2022-08-24 11:00 | Outpatient (BNVA) | payer MEDICARE, BC, SELFPAY | PROVIDERS: PCP Family Medicine; Visit Provider Urology | DX: N40.1 Benign prostatic hyperplasia with lower urinary tract symptoms (principal); C67.8 Malignant neoplasm of overlapping sites of bladder | CPT/HCPCS: 52224; J9280 ==

== ENCOUNTER → 2022-08-30 14:08 | Outpatient (BNVA) | payer MEDICARE, BC, SELFPAY | PROVIDERS: PCP Family Medicine; Visit Provider Nurse Practitioner Family | DX: I73.9 Peripheral vascular disease, unspecified (principal) | CPT/HCPCS: 99213 ==

== ENCOUNTER → 2022-09-11 13:50 | Outpatient (BNVA) | payer MEDICARE, BC, SELFPAY | PROVIDERS: PCP Family Medicine; Visit Provider Internal Medicine | DX: I73.9 Peripheral vascular disease, unspecified (principal); E11.65 Type 2 diabetes mellitus with hyperglycemia; Z79.4 Long term (current) use of insulin; I10 Essential (primary) hypertension; I25.119 Atherosclerotic heart disease of native coronary artery with unspecified angina pectoris; I48.91 Unspecified atrial fibrillation; F17.210 Nicotine dependence, cigarettes, uncomplicated | CPT/HCPCS: 99214 ==

== ENCOUNTER 2022-09-13 11:43 | Inpatient (IN) | payer MEDICARE, BC, SELFPAY ==
[2022-09-13] VITALS (28 sets, daily range): BP systolic 97–146; BP diastolic 56–85; PULSE 81–122; RESP 16–27; TEMP 36.7; O2SAT 90–98; BMI 29.2
[2022-09-13] MEDS: diphenhydrAMINE 50 mg Capsule PO (09:30)
--- NOTE | 2022-09-13 10:00 | XACV_ITS ---
Ht: 170 cm Wt: 83 kg BSA: 2.00 m2 Any Known Allergies: No known allergies Gender: Male : 1945 Exam Type: Invasive Peripheral Vascular Procedure(s): Procedure Description: Peripheral Cath Diagnostic Procedure Procedure Description: Abdominal aortic angiography Exam Priority: Routine Abdominal Diagnostic Findings Distal abdominal aorta: Has endovascular graft with limbs extending into bilateral iliac arteries. Patent. Lower Extremity Diagnostic Findings INDICATION: Severe lifestyle limiting claudication/ occasional resting left leg pain. Left lower extremity findings: Left common iliac artery: Has endograft limb extending into it. Patent. Left external iliac artery: Patent.. Left common femoral artery: Patent. Left SFA: Occluded. Has multiple occluded stents. Left femoropopliteal bypass graft: Occluded. Left profunda artery: Patent. Supplies collaterals to distal SFA/popliteal artery. Left popliteal artery: Patent. Left TP segment: Patent. Left anterior tibial artery: Occluded. Left peroneal artery: Patent Left posterior tibial artery: Patent however has diffuse disease.. Right lower extremity findings: Right common iliac artery: Has endograft limb extending into it. Patent Right external iliac artery: Patent Right common femoral artery: Patent Right profunda artery: Patent. Supplies collateral blood supply to popliteal artery. Right SFA: Occluded. Right popliteal artery: Patent. Right TP segment: Patent. Patient has three-vessel runoff to the foot however diffusely diseased vessels.. Conclusions Severe bilateral lower extremity peripheral artery disease. Left lower extremity has occluded bypass graft and SFA. SFA has mulitple occluded stents. Reconstitution of popliteal artery via collaterals from profunda. Right lower extremity has occluded SFA and possibly occluded bypass graft. Reconstitution of popliteal artery via collaterals from profunda. Recommendations Given complexity of disease with left leg multiple occluded prior SFA stents, we will refer him to vascular surgery regarding evaluation for possible redo bypass surgery vs possible percutaneous options. Continue current medications including Xarelto. Outpatient follow up in 7-10 days. Access Site Site: Right Femoral artery Sheath Size: 6 Fr Hemost... Method: Manual Compression Hemost... Success: Successful Site: Right Femoral vein Sheath Size: 4 Fr Hemost... Method: Suture Hemost... Success: Successful Procedure Details Findings Procedure Consent Obtained. Admit Source: Out Patient. Pre-Procedure Time Out. Identified patient by full name and date of as verbalized by the patient/guarantor. Does the consent match the physician's order: Yes. Accurate & Complete Informed Consent: Yes. Inpatient/Outpatient History & Physical on Chart: Yes. If H&P is completed, is and addenduem needed: No; If yes, is the addendum complete: N/A. Visualize and Verify Site with Patient/Guarantor: N/A. Relevant Radiology Images available: Yes. The risks, benefits, and alternatives of sedation and/or procedure were discussed by physician. The patient agrees to continue. Procedure started. Correct patient, site and procedure confirmed by cath team. PERRLA. Strong, equal hand personal care service provider bilaterally. Lungs clear x 5 lobes. IV Site on Arrival: 20 gauge in the right anticubital. IV Fluids: 0.9% NaCl at KVO. 0 mL infused prior to director of cath lab. Pre Procedural Pulses: right radial was 1+. Pre Procedural Pulses: left radial was 3+. Pre Procedural Pulses: bilateral posterior tibial was Doppled. Pre Procedural Pulses: bilateral dorsalis pedis was Doppled. Oxygen started at 0liters/min via nasal canula. bilateral groins was prepped with chloroprep then draped in the usual sterile fashion. Physician notified. Baseline sample Acquired. HR: 116 BPM. Physician arrived. Physician scrubbed in. Time out performed with cath team. Lidocaine 1% infiltrated to the right groin. Ultrasound being used to assist in access. Arterial access obtained with micropuncture set. Wire and needle out. Iv out on arrival, Venous access being attempted. Arterial access obtained with micropuncture set. Venous access obtained with micropuncture set. Right femoral vein being used as primary access for fluids and meds. A 5FrFr UF catheter in over wire. Abdominal aortogram performed in AP @ 10 mL/sec for a total of 30 mL. Glidwire inserted. Left leg runoff performed in AP @ 10ml/sc for a total of 30ml. DSA 6f/s performed of left leg below the knee. Right leg runoff performed in AP@ 10 mL/sec for a total of 30 mL. Post Procedure: Pulses reassessed and unchanged. PERRLA. Strong, equal hand personal care service provider bilaterally. No VTE prophylaxis required. Post-op diagnosis: Severe bilateral PAD. Complications: none. Estimated blood loss: 5mL-10mL. Responsiveness - Normal response to verbal stimuli; alert and oriented, PERRLA. A Manual Compression was successful obtaining hemostatsis at the Right Femoral artery insertion site. A Suture was successful obtaining hemostatsis at the Right Femoral vein insertion site. Medication's Wasted: Other = versed 2 mg. Medication's Wasted: Other = fentanyl 100 mc. Medication's Wasted: Heparin = 1000 units. Total IV fluids: 24 mL. Airway - Unaffected, no intervention required; spontaneous ventilation. Circulation: W/N/L, pulses unchanged. Nausea/Vomiting: No. Procedure completed. Patient transferred by bed to 1st floor. Vital chart was stopped. Procedure Medications Start: 10:55 AM Stop: 10:55 AM Medication: Versed Amount: 1 mg Route: I.V. Start: 10:55 AM Stop: 10:55 AM Medication: Fentanyl Amount: 50 mcg Route: I.V. Start: 11:09 AM Stop: 11:09 AM Medication: Versed Amount: 1 mg Route: I.V. Start: 11:09 AM Stop: 11:09 AM Medication: Fentanyl Amount: 50 mcg Route: I.V. I, the attending physician, have reviewed and verified all procedure medications. Yes, all medications given per verbal order History/Risk Factors Hypertension: Yes Dyslipidemia: Yes Peripheral Arterial Disease (PAD): Yes Myocardial Infarction (ME): Yes Obesity: No Tobacco Use: Current/Recent(w/in 1 year) Prior 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 PCI: Yes CABG: No Valve Surgery: No Date of PCI: 03/27/2021 Report Signatures Finalized by Art Mays MD on 09/14/2022 09:13 AM
[2022-09-13 10:14] LABS: Basophils % 0.3 %; Eosinophils # 0.3 10^3/uL (0.0-0.8); Eosinophils % 2.6 %; Hematocrit 35.2 % (42.0-52.0); Hemoglobin 11.6 g/dL (11.7-16.6); Lymphocytes # 1.4 10^3/uL (0.8-4.8); Lymphocytes % 13.8 %; Mean Corpuscular Hemoglobin 31.2 pg (28.0-34.0); Mean Corpuscular Volume 94.6 fl (80-94); Mean Platelet Volume 9.7 fL (7.4-10.4); Monocytes # 0.2 10^3/uL (0.2-0.9); Monocytes % 2.4 %; Neutrophils # 8.21 10^3/uL (1.8-7.7); Neutrophils % 80.6 %; Nucleated Red Blood Cells % 0 %; Platelet Count 231 10^3/cmm (130-400); Red Blood Count 3.72 10^6/uL (4.1-5.3); White Blood Count 10.2 10^3/uL (4.0-10.0)
[2022-09-13 10:26] LABS: Anion Gap 13.6 (5-19); Blood Urea Nitrogen 23 mg/dL (8-23); Carbon Dioxide 25 mmol/L (22-29); Chloride 101 mmol/L (98-107); Glucose 207 mg/dL (65-115); Osmolality Calculated 292 mOsm/kg (285-295); Potassium 3.6 mmol/L (3.5-5.1); Sodium 136 mmol/L (136-145)
--- NOTE | 2022-09-13 11:36 | P.HPUD_ITS ---
Surgery/Procedure H&P Update DATE OF PROCEDURE: September 13, 2022 DATE H&P PERFORMED: 09/11/22 H&P UPDATE INFORMATION: I have reviewed H&P completed within last 30 days, I have examined patient prior to procedure and No changes to prior documentation PREOP DIAGNOSIS: Severe lifestyle limiting claudication PLANNED PROCEDURE: Operation Date: 09/13/22 10:00 Proposed Procedures p Peripheral Diagnostic 48446 I73.9 I50.9 I65.23 I48.91 I25.119(Not Applicable) - Art Mays M.D Possible percutaneous coronary intervention PATIENT REASSESSED PRIOR TO SEDATION, WITH NO CHANGE NOTED: Yes PHYSICAL EXAM: alert and oriented x 3 OTHER PERTINENT EXAM FINDINGS: irregularly irregular heart rhythm AIRWAY EVAL/ANESTHESIA PLAN: normal airway, ASA IV, Risks, benefits & alternatives of sedation and/or procedure discussed and Patient agrees to cont inue as planned ADDITIONAL INFORMATION: Moderate sedation
[2022-09-13 12:03] LABS: Glucose Point of Care 227 mg/dL (70-110)
--- NOTE | 2022-09-13 12:25 | PC.NURSE ---
received from cardiac environmental laboratory technician at 1135 via bed,into room 112-1.report received.pt is drowsy but easily awakened.afib at controlled rate on monitor.right arterial sheath was pulled by environmental laboratory technician staff at 1130.right femoral drsg is dry and intact.no hematoma noted.bilat dp and pt pulses are dopplerable.right femoral venous sheath in for iv access.drsg is dry and intact and no hematoma noted.bp stable.pt instructed in activity restrictions s/p femoral arterial sheath pull...and instructed to notify staff for any bleeding,pain,numbness...or for any concerns at all.pt verb understanding of instructions.
--- NOTE | 2022-09-13 19:18 | PC.NURSE ---
discharge instructions given and explained.pt and spouse verb understanding .discharged via w/c to exit at this time.
== END 2022-09-13 19:20 | disposition home or self-care (01) | DRG 300 ==
LOC: CSU 11:44
PROVIDERS: Admitting Provider Internal Medicine; PCP Family Medicine; Visit Provider Internal Medicine
PROC: B41DYZZ Fluoroscopy of Aorta and Bilateral Lower Extremity Arteries using Other Contrast (ICD-10-PCS; principal; 2022-09-13 10:00)
DX: E11.51 Type 2 diabetes mellitus with diabetic peripheral angiopathy without gangrene (principal); N13.8 Other obstructive and reflux uropathy; E11.40 Type 2 diabetes mellitus with diabetic neuropathy, unspecified; E11.65 Type 2 diabetes mellitus with hyperglycemia; Z79.4 Long term (current) use of insulin; Z79.84 Long term (current) use of oral hypoglycemic drugs; I71.40 Abdominal aortic aneurysm, without rupture, unspecified; I48.91 Unspecified atrial fibrillation; C67.9 Malignant neoplasm of bladder, unspecified; N40.1 Benign prostatic hyperplasia with lower urinary tract symptoms; J44.9 Chronic obstructive pulmonary disease, unspecified; I25.10 Atherosclerotic heart disease of native coronary artery without angina pectoris; Z95.5 Presence of coronary angioplasty implant and graft; I10 Essential (primary) hypertension; F17.210 Nicotine dependence, cigarettes, uncomplicated; Z98.890 Other specified postprocedural states; Z95.820 Peripheral vascular angioplasty status with implants and grafts
CPT/HCPCS: 36415; 36416; 75625; 75716; 80048; 82962; 85025; 96365; 96367; 99152; 99153; 99214; C1769; C1887; C1894; J1644; J2250; J3010; J7030; Q0163; Q9967

== ENCOUNTER → 2022-09-25 14:40 | Outpatient (BNVA) | payer MEDICARE, BC, SELFPAY | PROVIDERS: PCP Family Medicine; Visit Provider Nurse Practitioner Family | DX: I73.9 Peripheral vascular disease, unspecified (principal) | CPT/HCPCS: 99214 ==

== ENCOUNTER 2022-09-28 13:13 | Outpatient (CLI) | payer MEDICARE, BC, SELFPAY ==
[2022-09-28 14:08] LABS: Anion Gap 15.4 (5-19); Blood Urea Nitrogen 27 mg/dL (8-23); Calcium 8.9 mg/dL (8.5-10.5); Carbon Dioxide 24 mmol/L (22-29); Chloride 101 mmol/L (98-107); Glucose 215 mg/dL (65-115); Osmolality Calculated 296 mOsm/kg (285-295); Potassium 3.4 mmol/L (3.5-5.1); Sodium 137 mmol/L (136-145)
== END 2022-09-28 13:14 | disposition home or self-care (01) ==
LOC: LAB 13:18
PROVIDERS: PCP Family Medicine; Visit Provider Nurse Practitioner Family
DX: I73.9 Peripheral vascular disease, unspecified (principal)
CPT/HCPCS: 80048

== ENCOUNTER → 2022-10-04 16:45 | Outpatient (BNVA) | payer MEDICARE, BC, SELFPAY | PROVIDERS: PCP Family Medicine; Visit Provider Urology | DX: C67.8 Malignant neoplasm of overlapping sites of bladder (principal); N30.90 Cystitis, unspecified without hematuria | CPT/HCPCS: 51720; J9280 ==

== ENCOUNTER → 2022-11-26 14:50 | Outpatient (BNVA) | payer MEDICARE, BC, SELFPAY | PROVIDERS: PCP Family Medicine; Visit Provider Nurse Practitioner Family | DX: I96 Gangrene, not elsewhere classified (principal); E11.622 Type 2 diabetes mellitus with other skin ulcer; L97.822 Non-pressure chronic ulcer of other part of left lower leg with fat layer exposed; E11.621 Type 2 diabetes mellitus with foot ulcer; L89.622 Pressure ulcer of left heel, stage 2 | CPT/HCPCS: 97597; 99213; A6220 ==

== ENCOUNTER → 2022-12-03 15:57 | Outpatient (BNVA) | payer MEDICARE, BC, SELFPAY | PROVIDERS: PCP Family Medicine; Visit Provider Thoracic Surgery (Cardiothoracic Vascular Surgery) | DX: I96 Gangrene, not elsewhere classified (principal); E11.622 Type 2 diabetes mellitus with other skin ulcer; L97.822 Non-pressure chronic ulcer of other part of left lower leg with fat layer exposed; Z09 Encounter for follow-up examination after completed treatment for conditions other than malignant neoplasm | CPT/HCPCS: 11042 ==

== ENCOUNTER → 2022-12-13 10:52 | Outpatient (BNVA) | payer MEDICARE, BC, SELFPAY | PROVIDERS: PCP Family Medicine; Visit Provider Nurse Practitioner Family | DX: I96 Gangrene, not elsewhere classified (principal); E11.621 Type 2 diabetes mellitus with foot ulcer; L97.822 Non-pressure chronic ulcer of other part of left lower leg with fat layer exposed | CPT/HCPCS: 11042; A6253 ==

== ENCOUNTER → 2022-12-27 15:03 | Outpatient (BNVA) | payer MEDICARE, BC, SELFPAY | PROVIDERS: PCP Family Medicine; Visit Provider Internal Medicine | DX: I73.9 Peripheral vascular disease, unspecified (principal); E11.65 Type 2 diabetes mellitus with hyperglycemia; Z79.4 Long term (current) use of insulin; I10 Essential (primary) hypertension; I25.119 Atherosclerotic heart disease of native coronary artery with unspecified angina pectoris; I48.91 Unspecified atrial fibrillation; Z79.01 Long term (current) use of anticoagulants; F17.210 Nicotine dependence, cigarettes, uncomplicated | CPT/HCPCS: 99214 ==

== ENCOUNTER → 2023-02-20 15:21 | Outpatient (BNVA) | payer MEDICARE, BC, SELFPAY | PROVIDERS: PCP Family Medicine; Visit Provider Urology | DX: C67.9 Malignant neoplasm of bladder, unspecified (principal) | CPT/HCPCS: 51720; 52224; 81003; J9280 ==

== ENCOUNTER → 2023-04-05 13:05 | Outpatient (BNVA) | payer MEDICARE, BC, SELFPAY | PROVIDERS: PCP Family Medicine; Visit Provider Thoracic Surgery (Cardiothoracic Vascular Surgery) | DX: E11.52 Type 2 diabetes mellitus with diabetic peripheral angiopathy with gangrene (principal); L97.811 Non-pressure chronic ulcer of other part of right lower leg limited to breakdown of skin | CPT/HCPCS: 97597; 99213; A6021 ==

== ENCOUNTER → 2023-04-12 13:47 | Outpatient (BNVA) | payer MEDICARE, BC, SELFPAY | PROVIDERS: PCP Family Medicine; Visit Provider Thoracic Surgery (Cardiothoracic Vascular Surgery) | DX: E11.52 Type 2 diabetes mellitus with diabetic peripheral angiopathy with gangrene (principal); L97.811 Non-pressure chronic ulcer of other part of right lower leg limited to breakdown of skin | CPT/HCPCS: 97597; A6021; A6212 ==

== ENCOUNTER → 2023-04-19 10:09 | Outpatient (BNVA) | payer MEDICARE, BC, SELFPAY | PROVIDERS: PCP Family Medicine; Visit Provider Thoracic Surgery (Cardiothoracic Vascular Surgery) | DX: E11.52 Type 2 diabetes mellitus with diabetic peripheral angiopathy with gangrene (principal); L97.812 Non-pressure chronic ulcer of other part of right lower leg with fat layer exposed | CPT/HCPCS: 97597; A6021 ==

== ENCOUNTER 2023-04-29 06:00 | Outpatient (RCR) | payer MEDICARE, BC, SELFPAY | END 2023-05-16 23:59 | disposition home or self-care (01) | LOC: SPT 06:00 | PROVIDERS: PCP Family Medicine; Visit Provider Physical Medicine & Rehabilitation | DX: Z89.612 Acquired absence of left leg above knee (principal) | CPT/HCPCS: 97110; 97112; 97162 ==

== ENCOUNTER → 2023-05-03 09:46 | Outpatient (BNVA) | payer MEDICARE, BC, SELFPAY | PROVIDERS: PCP Family Medicine; Visit Provider Thoracic Surgery (Cardiothoracic Vascular Surgery) | DX: E11.52 Type 2 diabetes mellitus with diabetic peripheral angiopathy with gangrene (principal); L97.811 Non-pressure chronic ulcer of other part of right lower leg limited to breakdown of skin | CPT/HCPCS: 97597 ==

== ENCOUNTER → 2023-05-10 10:05 | Outpatient (BNVA) | payer MEDICARE, BC, SELFPAY | PROVIDERS: PCP Family Medicine; Visit Provider Thoracic Surgery (Cardiothoracic Vascular Surgery) | DX: E11.52 Type 2 diabetes mellitus with diabetic peripheral angiopathy with gangrene (principal); L97.811 Non-pressure chronic ulcer of other part of right lower leg limited to breakdown of skin; L97.812 Non-pressure chronic ulcer of other part of right lower leg with fat layer exposed | CPT/HCPCS: 97597; A6021; A6212; A6251 ==

== ENCOUNTER 2023-05-17 06:00 | Outpatient (RCR) | payer MEDICARE, BC, SELFPAY | END 2023-06-15 23:59 | disposition home or self-care (01) | LOC: SPT 06:00 | PROVIDERS: PCP Family Medicine; Visit Provider Physical Medicine & Rehabilitation | DX: Z89.612 Acquired absence of left leg above knee (principal); E11.622 Type 2 diabetes mellitus with other skin ulcer; L97.811 Non-pressure chronic ulcer of other part of right lower leg limited to breakdown of skin | CPT/HCPCS: 97110; 97112; 97597; A6021; A6212 ==

== ENCOUNTER → 2023-05-24 10:32 | Outpatient (BNVA) | payer MEDICARE, BC, SELFPAY | PROVIDERS: PCP Family Medicine; Visit Provider Thoracic Surgery (Cardiothoracic Vascular Surgery) | DX: E11.52 Type 2 diabetes mellitus with diabetic peripheral angiopathy with gangrene (principal); L97.811 Non-pressure chronic ulcer of other part of right lower leg limited to breakdown of skin | CPT/HCPCS: 97597; A6210 ==

== ENCOUNTER → 2023-05-31 13:13 | Outpatient (BNVA) | payer MEDICARE, BC, SELFPAY | PROVIDERS: PCP Family Medicine; Visit Provider Nurse Practitioner Family | DX: E11.52 Type 2 diabetes mellitus with diabetic peripheral angiopathy with gangrene (principal); L97.812 Non-pressure chronic ulcer of other part of right lower leg with fat layer exposed | CPT/HCPCS: 97597; 97598; A6210 ==

== ENCOUNTER → 2023-06-14 13:07 | Outpatient (BNVA) | payer MEDICARE, BC, SELFPAY | PROVIDERS: PCP Family Medicine; Visit Provider Thoracic Surgery (Cardiothoracic Vascular Surgery) | DX: E11.52 Type 2 diabetes mellitus with diabetic peripheral angiopathy with gangrene (principal); L97.811 Non-pressure chronic ulcer of other part of right lower leg limited to breakdown of skin; Z09 Encounter for follow-up examination after completed treatment for conditions other than malignant neoplasm | CPT/HCPCS: 97597; A6212 ==

== ENCOUNTER 2023-06-16 06:00 | Outpatient (RCR) | payer MEDICARE, BC, SELFPAY | END 2023-07-16 23:59 | disposition home or self-care (01) | LOC: SPT 06:00 | PROVIDERS: PCP Family Medicine; Visit Provider Physical Medicine & Rehabilitation | DX: Z89.612 Acquired absence of left leg above knee (principal); G54.7 Phantom limb syndrome without pain | CPT/HCPCS: 97110 ==

== ENCOUNTER → 2023-06-28 13:01 | Outpatient (BNVA) | payer MEDICARE, BC, SELFPAY | PROVIDERS: PCP Family Medicine; Visit Provider Thoracic Surgery (Cardiothoracic Vascular Surgery) | DX: E11.52 Type 2 diabetes mellitus with diabetic peripheral angiopathy with gangrene (principal); E11.622 Type 2 diabetes mellitus with other skin ulcer; L97.811 Non-pressure chronic ulcer of other part of right lower leg limited to breakdown of skin | CPT/HCPCS: 97597; A6212 ==

== ENCOUNTER → 2023-07-12 12:58 | Outpatient (BNVA) | payer MEDICARE, BC, SELFPAY | PROVIDERS: PCP Family Medicine; Visit Provider Nurse Practitioner Family | DX: E11.52 Type 2 diabetes mellitus with diabetic peripheral angiopathy with gangrene (principal); E11.622 Type 2 diabetes mellitus with other skin ulcer; L97.811 Non-pressure chronic ulcer of other part of right lower leg limited to breakdown of skin | CPT/HCPCS: 97597; A6212 ==

== ENCOUNTER → 2023-07-19 13:01 | Outpatient (BNVA) | payer MEDICARE, BC, SELFPAY | PROVIDERS: PCP Family Medicine; Visit Provider Thoracic Surgery (Cardiothoracic Vascular Surgery) | DX: Z09 Encounter for follow-up examination after completed treatment for conditions other than malignant neoplasm (principal); Z87.2 Personal history of diseases of the skin and subcutaneous tissue | CPT/HCPCS: 99212 ==

== ENCOUNTER → 2023-08-21 11:38 | Outpatient (BNVA) | payer MEDICARE, BC, SELFPAY | PROVIDERS: PCP Family Medicine; Visit Provider Internal Medicine Cardiovascular Disease | DX: E11.65 Type 2 diabetes mellitus with hyperglycemia (principal); Z79.4 Long term (current) use of insulin; E11.40 Type 2 diabetes mellitus with diabetic neuropathy, unspecified; I10 Essential (primary) hypertension; E78.1 Pure hyperglyceridemia; N52.9 Male erectile dysfunction, unspecified; I73.9 Peripheral vascular disease, unspecified; Z72.0 Tobacco use; Z79.01 Long term (current) use of anticoagulants; I25.119 Atherosclerotic heart disease of native coronary artery with unspecified angina pectoris; C67.8 Malignant neoplasm of overlapping sites of bladder; I48.91 Unspecified atrial fibrillation; I65.23 Occlusion and stenosis of bilateral carotid arteries; Z98.890 Other specified postprocedural states; Z95.828 Presence of other vascular implants and grafts; Z95.5 Presence of coronary angioplasty implant and graft; Z89.612 Acquired absence of left leg above knee | CPT/HCPCS: 99214 ==

== ENCOUNTER 2023-10-18 11:38 | Emergency (ER) | payer MEDICARE, BC, SELFPAY ==
[2023-10-18] VITALS (10 sets, daily range): BP systolic 96–175; BP diastolic 69–90; PULSE 84–105; RESP 16–23; TEMP 36.7; O2SAT 96–99
--- NOTE | 2023-10-18 11:50 | ECG_ITS ---
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 Measurements Intervals [place] Rate: 105 P: 0 MI: 0 QRS: -30 QRSD: 103 T: 76 QT: 358 QTc: 473 Interpretive Statements ATRIAL FIBRILLATION WITH RAPID VENTRICULAR RESPONSE BORDERLINE LEFT AXIS DEVIATION [QRS AXIS < -20] NONSPECIFIC ST & T-WAVE ABNORMALITY Compared to ECG 04/11/2022 17:07:36 Sinus rhythm no longer present Myocardial infarct finding no longer present Possible ischemia no longer present T-wave abnormality still present Electronically Signed On 10-19-2023 23:14:33 WHEEL PRESS OPERATOR by Art Mays M.D. [id number] daryl
--- NOTE | 2023-10-18 11:50 | XR_ITS ---
WS: [id number] Portable AP upright chest, 10/18/2023 Clinical Data: chest pain Comparison: Portable chest, 04/11/2022 Findings: No nodules or masses are seen. There is a small right pleural effusion the heart is slight ly enlarged. The pulmonary vascularity is not increased. No pneumonia or pneumothorax is seen. The di aphragms are flattened. The aortic arch and descending thoracic aorta show mild calcification and to rtuosity. There are monitor leads on the chest wall. Impression: 1. Cardiomegaly and atherosclerosis. 2. Hyperinflation. 3. Small right pleural effusion.
--- NOTE | 2023-10-18 12:34 | ED_ITS ---
HPI - Chest Pain 2 General: Chief Complaint: Chest Pain Stated Complaint: chest pains Time Seen by Provider: 10/18/23 12:34 History of Present Illness: 78-year-old male presents emergency depa rtment with complaints of left upper chest pain. He is accompanied by his and states that he has had intermittent left upper chest pain for the previous 1 week. He states he does have a history of atrial fibrillation and is on anticoagulation and has had multiple cardiac stents. He states that he is not short of breath that his atrial fibrillation is rate controlled and has no nausea or vomiting dizziness or lightheaded feeling with this chest discomfort. He states it is not exertional in nature. Pushing on the left upper chest does elicit his chest discomfort. Review of Systems 2 General: Reports: 10 or more systems reviewed and unremarkable except in HPI and below Card: Reports: chest pain and irregular heart rhythm PFSH ED 2 PFSH: Medical History (Updated 10/18/23 @ 16:17 by Dionisio Ricci MD) History of left above knee amputation BPH loc w urin obs/LUTS Started on TAMSULOSIN March 2021 for chronic BPH symptoms Atrial fibrillation with RVR Patient converted to normal sinus rhythm with home dose of sotalol. Bladder cancer Low-grade noninvasive papillary urothelial carcinoma plan cystoscopy done in December 2020, status post intravesical mitomycin after each cystoscopy and status post induction therapy with weekly BCG intravesically from August 18, 2021 through September 22, 2021 Follow-up cystoscopy done on January 16, 2022 showed persistent/recurrence low- grade urothelial carcinoma status post fulguration followed by postop intravesical mitomycin. Proteinuria Coronary artery disease Anticoagulation adequate with anticoagulant therapy Carotid stenosis Abdominal aortic aneurysm (AAA) COPD (chronic obstructive pulmonary disease) Tobacco abuse Adamantly refuses to quit after multiple sessions of counseling Peripheral arterial disease Erectile dysfunction Hypertriglyceridemia HTN (hypertension), benign Diabetic neuropathy Afib Diabetes mellitus Surgical History (Updated 08/21/23 @ 12:13 by Luis Mast MD) History of bladder surgery Previous back surgery Hx of appendectomy History of carotid endarterectomy History of abdominal aortic aneurysm (AAA) repair S/P femoral-popliteal bypass surgery S/P right coronary artery (RCA) stent placement hx of Distal RCA and Prox RCA H/O heart artery stent Family History Father , in his 80's Stroke Mother , at age 83 Diabetes Social History Smoking and tobacco/nicotine status: current every day tobacco/nicotine user cigarettes Packs smoked per day: 1 Alcohol intake: never Substance/Drug Use: never Household members: spouse Marital status: service: Yes branch: [employer] Current occupational status: retired Physical Exam 2 Narrative: EXAM NARRATIVE: Constitutional: the patient appears well nourished and with normal development. Vital signs reviewed as documented. HENMT: Normocephalic, atraumatic. External ears normal appearance without drainage. Nose without drainage, normal appearance. Mucus membranes moist. Neck is supple, No jugular venous distension, trachea is midline, no appreciable carotid bruits. No lymphadenopathy. No meningeal signs. Flexion, extension and lateral rotation is without pain. Eyes: Pupils are equal, round, reactive to light and accommodation. No scleral icterus. Extra-ocular movement are intact. Thorax is symmetrical and with equal rise and fall with respirations. Left upper chest wall is tender to palpation and reproduces the patient's complaint of chest pain. Resp: Lungs are clear to auscultation. No wheezes, rales, crackles or ronchi at present. Cardio: Irregular rate and rhythm consistent with atrial fibrillation rate controlled. Positive S1, S2. No appreciable murmurs, rubs or gallops. GI: Abdominal exam reveals normal bowel sounds to all quadrants. No organomegaly. No obvious palpable masses noted. No hepatomegally appreciated. Soft, non-tender to palpation. Extremity: Extremities are non-edematous and both femoral and pedal pulses are 2+ and equal bilaterally. Moves all extremities well, sensation in all extremities. Neuro: Alert and oriented x4, person, place, time and situation. Cranial nerves II through XII are grossly intact, there is no focal neurological deficits that I can appreciate at present. Motor strength in the upper and lower extremities are equal and bilateral 5/5. Psych: Cooperative, calm, normal thought process, appropriate judgment. Skin: No lesions, rashes. No gross abnormalities noted. Back: Symmetrical, no obvious deformity, No CVA tenderness Course 2 Vital Signs: Vital signs: Vital Signs Temperature 98.0 F 10/18/23 11:40 Pulse Rate 98 10/18/23 16:07 Respiratory Rate 21 H 10/18/23 16:07 Blood Pressure 146/77 10/18/23 16:07 Pulse Oximetry 97 10/18/23 16:07 Oxygen Delivery Me thod Room Air 10/18/23 16:07 MDM - Chest Pain Medical Decision Making Physical exam completed and documented, I will obtain serial cardiac enzymes, serial twelve-lead EKGs, chest x-ray, CBC, CMP, urinalysis, B-type natriuretic peptide, PT/PTT/INR, and a chest x-ray. I have reviewed previous and pertinent medical records for assist in obtaining beneficial medical information to improved the care and treatment of the patient. Medical Records I reviewed the patient's medical records. Lab Data I reviewed the patient's lab results. 10/18/23 13:01 10/18/23 13:46 Laboratory Results WBC 7.95 10^3/uL (3.29-11.43) 10/18/23 13:01 RBC 3.67 10^6/uL (3.85-5.65) L 10/18/23 13:01 Hgb 12.20 g/dL (11.27-16.99) 10/18/23 13:01 Hct 36.2 % (37-53) L 10/18/23 13:01 MCV 98.6 fl (82-101) 10/18/23 13:01 MCH 33.2 pg (27-33) H 10/18/23 13:01 MCHC 33.7 g/dL (30-55) 10/18/23 13:01 RDW 16.5 % (12.1-15.1) H 10/18/23 13:01 Plt Count 258 10^3/cmm (157-399) 10/18/23 13:01 MPV 10.2 fL (7.4-10.4) 10/18/23 13:01 Neut % (Auto) 63.7 % 10/18/23 13:01 Lymph % (Auto) 25.4 % 10/18/23 13:01 [place] % (Auto) 6.2 % 10/18/23 13:01 Eos % (Auto) 3.9 % 10/18/23 13:01 Baso % (Auto) 0.5 % 10/18/23 13:01 Neut # (Auto) 5.07 10^3/uL (1.8-7.7) 10/18/23 13:01 Lymph # (Auto) 2.0 10^3/uL (0.8-4.8) 10/18/23 13:01 [place] # (Auto) 0.5 10^3/uL (0.2-0.9) 10/18/23 13:01 Eos # (Auto) 0.3 10^3/uL (0.0-0.8) 10/18/23 13:01 Baso # (Auto) 0.0 10^3/uL (0.0-0.1) 10/18/23 13:01 Nucleated RBC % (auto) 0 % 10/18/23 13:01 Nucleated RBCs # 0.0 /100WBC 10/18/23 13:01 PT 16.90 SECONDS (12.1-14.9) H 10/18/23 13:01 INR 1.33 (0.8-1.2) H 10/18/23 13:01 APTT 35.1 SECONDS (23.9-36.7) 10/18/23 13:01 Sodium 140 mmol/L (136-145) 10/18/23 13:46 Potassium 3.5 mmol/L (3.5-5.1) 10/18/23 13:46 Chloride 105 mmol/L (98-107) 10/18/23 13:46 Carbon Dioxide 24 mmol/L (22-29) 10/18/23 13:46 Anion Gap 14.5 (5-19) 10/18/23 13:46 BUN 21 mg/dL (8-23) 10/18/23 13:46 Creatinine 1.0 mg/dL (0.7-1.2) 10/18/23 13:46 GFR Calculation Not Reportable 10/18/23 13:46 Glucose 132 mg/dL (65-115) H 10/18/23 13:46 Calculated Osmolality 295 mOsm/kg (285-295) 10/18/23 13:46 Calcium 8.6 mg/dL (8.5-10.5) 10/18/23 13:46 Total Bilirubin 0.2 mg/dL (0.15-1.2) 10/18/23 13:46 AST 16 U/L (0-40) 10/18/23 13:46 ALT 15 U/L (0-41) 10/18/23 13:46 Alkaline Phosphatase 60 U/L (40-130) 10/18/23 13:46 Creatine Kinase 41 U/L (39-308) 10/18/23 13:46 Troponin T Baseline 27 ng/L (0-15) H 10/18/23 13:01 Troponin T 120 Minute 26.34 ng/L (0-15) H 10/18/23 15:10 Delta Troponin T -0.66 ABS# (0-10) L 10/18/23 15:10 NT-Pro-B Natriuret Pep 2389 pg/mL (0-450) H 10/18/23 13:46 Total Protein 6.7 g/dL (6.6-8.7) 10/18/23 13:46 Albumin 3.4 g/dL (3.5-5.2) L 10/18/23 13:46 Globulin 3.3 g/dL (1.3-4.6) 10/18/23 13:46 Lipase 15 U/L (13-60) 10/18/23 13:46 Urine Color Yellow (Yellow) 10/18/23 13:22 Urine Appearance Clear (CLEAR) 10/18/23 13:22 Urine pH 6 (5-7) 10/18/23 13:22 Ur Specific Jessie 1.015 (1.005-1.030) 10/18/23 13:22 Urine Protein 2+ (Negative) H 10/18/23 13:22 Urine Glucose (UA) Norm (Normal) 10/18/23 13:22 Urine Ketones Negative (Negative) 10/18/23 13:22 Urine Blood 2+ (Negative) H 10/18/23 13:22 Urine Nitrate Negative (Negative) 10/18/23 13:22 Urine Bilirubin Neg (Negative) 10/18/23 13:22 Urine Urobilinogen Norm mg/dL (Negative) 10/18/23 13:22 Ur Leukocyte Esterase Negative (Negative) 10/18/23 13:22 Urine RBC 15-25 /hpf (0-2) H 10/18/23 13:22 Urine WBC 0-4 /hpf (0-5) H 10/18/23 13:22 Ur Squamous Epith Cells 0-4 /hpf (0-5) H 10/18/23 13:22 Amorphous Sediment Not Reportable 10/18/23 13:22 Urine Bacteria Trace /hpf (NONE) 10/18/23 13:22 Urine Sperm 1+ /hpf 10/18/23 13:22 All radiology interpretation(s) finalized by discharge EKG Data EKG 1: Interpretation: Twelve-lead EKG obtained at 1146 and reviewed 1148 demonstrates atrial fibrillation with a ventricular rate of 105 bpm, QRS duration 103, QT 358, QTc 419 at present there is no ST elevation or depression to demonstrate acute ischemia or infarction. Discharge Plan Discharge Patient Disposition: Home Clinical Impression: Atypical chest pain Atrial fibrillation Qualifiers: Atrial fibrillation type: permanent Qualified Code(s): I48.21 - Permanent atrial fibrillation Condition: Stable Prescriptions: No Action duloxetine [Cymbalta] 20 mg capsule,delayed release(DR/EC) 20 mg PO QAM ferrous sulfate 325 mg (65 mg iron) tablet 325 mg PO QAM pantoprazole 40 mg tablet,delayed release (DR/EC) 40 mg PO BID tamsulosin 0.4 mg capsule 0.4 mg PO QPM Qty: 90 3RF folic acid 1 mg tablet 1 mg PO QAM furosemide [Lasix] 20 mg tablet 20 mg PO BID methotrexate sodium 2.5 mg tablet 20 mg PO Q7D Rx Instructions: 8 TABS WEEKLY ON SATURDAY sucralfate 1 gram tablet 1 g PO QID PRN (Reason: UNKNOWN) gabapentin 100 mg capsule 200 mg PO TID Enbrel SureClick 50 mg/mL (1 mL) pen injector 50 mg SUBCUT Q7D Rx Instructions: ON SAT lisinopril 40 mg tablet 40 mg PO QAM Lantus Solostar U-100 Insulin 100 unit/mL (3 mL) insulin pen 20 unit SUBCUT BID Dose Instruction: inject 40 units SUBCUTANEOUSLY IN THE EVENING metformin 500 mg tablet 500 mg PO BID Hold Instructions: Resume on 09/15/22. (DME) pen needle, diabetic [TechLITE Pen Needle] 32 gauge x 5/32 needle See Rx Instructions .Route Qty: 400 0RF Rx Instructions: test 4 times daily hydralazine 50 mg tablet 50 mg PO BID Qty: 180 3RF Xarelto 20 mg tablet 20 mg PO BEDTIME Qty: 90 3RF Hold Instructions: Resume on 09/15/22. sotalol 80 mg tablet 120 mg PO BID Qty: 180 3RF clopidogrel [Plavix] 75 mg tablet 75 mg PO QAM Hold Instructions: Resume on 03/16/21. triamcinolone acetonide 0.1 % cream 1 applic TOPICAL TID PRN (Reason: Rash) simvastatin 20 mg tablet 20 mg PO QPM Qty: 30 0RF Tylenol Ex Str Rapid Release 500 mg Tablet 500 mg PO Q6H PRN (Reason: Pain) Nitrostat 0.4 mg Tablet, Sublingual 0.4 mg SUBLINGUAL Q5M PRN (Reason: Chest Pain) Rx Instructions: do not exceed 3 doses per episode potassium chloride 10 mEq capsule, extended release 10 meq PO QAM cetirizine 10 mg tablet 10 mg PO BEDTIME Novolog FlexPen U-100 Insulin 100 unit/mL (3 mL) insulin pen See Rx Instructions .ROUTE .COMPLEX Rx Instructions: sliding scale tid Discharge Orders: Discharge ED (Routine); Ordered 10/18/23 Ordered By: Dionisio Ricci Referrals: Bree Perkins MD [Primary Care Provider] - Discharge Diet: Low Salt Discharge Activity: Resume usual activity Patient Instructions: Opioid Safety, Pain Management Activity Restrictions/Additional Instructions: Activity Restrictions/Additional Instructions: Thank you for choosing [facility] for your healthcare needs today. Please realize that you were seen in the Emergency Department and that we are providing you with an emergency medical screening exam and this may not be a complete and all inclusive of all the testing and or medical work-up that you may need to determine your ailment or severity of your illness. It is very important that you follow-up as instructed with your Primary care provider or Specialist for additional evaluation and to discuss your medical treatment plan. You may return to the Emergency Department should you have concerns or if your condition changes or worsens in any way. Coding Level of Care Code ED [employer] General Supervisor for Sarah Terrazas
--- NOTE | 2023-10-18 13:02 | PC.PHAR ---
PT STATES HIS TAKES CARE OF HIS MEDICATIONS-PTS STATES THE PT TAKES THE MEDICATIONS ENTERED-PTS STATES THE PT TAKES LASIX 20MG BID -PTS STATES THE PT USES NOVOLOG FLEXPEN SS TID RX FILLED FOR 20 UNITS TID-PTS STATE THE PT TAKES KCL 10MEQ QAM RX FILLED FOR TAKE 2 CAPSULES BY MOUTH DAILY WHILE TAKING FUROSEMIDE 60/40 MG. WHEN DOSE IS 40 MG TAKE 20 MEQ.-NOTES ARE MADE IN THE PHARMACY COMMENTS
[2023-10-18 13:09] LABS: Basophils % 0.5 %; Eosinophils # 0.3 10^3/uL (0.0-0.8); Eosinophils % 3.9 %; Hematocrit 36.2 % (37-53); Lymphocytes % 25.4 %; Mean Corpuscular HGB Conc 33.7 g/dL (30-55); Mean Corpuscular Hemoglobin 33.2 pg (27-33); Mean Corpuscular Volume 98.6 fl (82-101); Mean Platelet Volume 10.2 fL (7.4-10.4); Monocytes # 0.5 10^3/uL (0.2-0.9); Monocytes % 6.2 %; Neutrophils # 5.07 10^3/uL (1.8-7.7); Neutrophils % 63.7 %; Nucleated Red Blood Cells % 0 %; Platelet Count 258 10^3/cmm (157-399); Red Blood Count 3.67 10^6/uL (3.85-5.65); Red Cell Distribution Width 16.5 % (12.1-15.1); White Blood Count 7.95 10^3/uL (3.29-11.43)
[2023-10-18 13:28] LABS: INR 1.33 (0.8-1.2)
[2023-10-18 13:29] LABS: Partial Thromboplastin Time 35.1 SECONDS (23.9-36.7)
[2023-10-18 13:35] LABS: Troponin(5th) Baseline 27 ng/L (0-15)
[2023-10-18 13:43] LABS: Add Urine Culture? Yes; Add Urine Microscopic? YES; Bacteria Urine TRACE /hpf; Bilirubin Urine Neg (Negative); Blood Urine 2+ (Negative); Glucose Urine UA Norm (Normal); Ketones Urine Negative (Negative); Leukocyte Esterase Urine Negative (Negative); Nitrate Urine Negative (Negative); Protein Urine 2+ (Negative); RBC Urine 15-25 /hpf (0-2); Specific Gravity, Urine 1.015 (1.005-1.030); Sperm Urine 1+ /hpf; Squamous Epithelial Cell Urine 0-4 /hpf (0-5); Urine Appearance Clear (CLEAR); Urine Color Yellow (Yellow); Urobilinogen Urine Norm (Negative); WBC Urine 0-4 /hpf (0-5); pH Urine 6 (5-7)
[2023-10-18 14:57] LABS: Alanine Aminotransferase 15 U/L (0-41); Albumin Level 3.4 g/dL (3.5-5.2); Alkaline Phosphatase 60 U/L (40-130); Anion Gap 14.5 (5-19); Aspartate Amino Transferase 16 U/L (0-40); Blood Urea Nitrogen 21 mg/dL (8-23); Calcium 8.6 mg/dL (8.5-10.5); Carbon Dioxide 24 mmol/L (22-29); Chloride 105 mmol/L (98-107); Creatine Phosphokinase 41 U/L (39-308); Globulin 3.3 g/dL (1.3-4.6); Glucose 132 mg/dL (65-115); Lipase 15 U/L (13-60); NT Pro B Type Natriuretic Pept 2389 pg/mL (0-450); Osmolality Calculated 295 mOsm/kg (285-295); Potassium 3.5 mmol/L (3.5-5.1); Sodium 140 mmol/L (136-145); Total Bilirubin 0.2 mg/dL (0.15-1.2); Total Protein 6.7 g/dL (6.6-8.7)
[2023-10-18 15:45] LABS: Troponin 5 2HR 26.34 ng/L (0-15)
[2023-10-18 15:48] LABS: Troponin 5 2HR Delta -0.66 ABS# (0-10)
== END 2023-10-18 16:57 | disposition home or self-care (01) ==
PROVIDERS: Physician Assistant; Emergency Provider Internal Medicine; PCP Family Medicine
DX: R07.89 Other chest pain (principal); I48.21 Permanent atrial fibrillation; Z79.4 Long term (current) use of insulin; Z79.84 Long term (current) use of oral hypoglycemic drugs; Z79.02 Long term (current) use of antithrombotics/antiplatelets; F17.210 Nicotine dependence, cigarettes, uncomplicated; Z85.51 Personal history of malignant neoplasm of bladder; I25.10 Atherosclerotic heart disease of native coronary artery without angina pectoris; J44.9 Chronic obstructive pulmonary disease, unspecified; I10 Essential (primary) hypertension; E11.40 Type 2 diabetes mellitus with diabetic neuropathy, unspecified
CPT/HCPCS: 36415; 71045; 80053; 81001; 82550; 83690; 83880; 84484; 85025; 85610; 85730; 87086; 93005; 99285

== ENCOUNTER → 2023-10-21 12:00 | Outpatient (BNVA) | payer MEDICARE, BC, SELFPAY | PROVIDERS: PCP Family Medicine; Visit Provider Internal Medicine | DX: I25.118 Atherosclerotic heart disease of native coronary artery with other forms of angina pectoris (principal); I73.9 Peripheral vascular disease, unspecified; E11.65 Type 2 diabetes mellitus with hyperglycemia; Z79.4 Long term (current) use of insulin; I10 Essential (primary) hypertension; I48.91 Unspecified atrial fibrillation; F17.210 Nicotine dependence, cigarettes, uncomplicated | CPT/HCPCS: 99215 ==

== ENCOUNTER 2023-10-21 15:23 | Outpatient (CLI) | payer MEDICARE, BC, SELFPAY ==
[2023-10-21] VITALS (8 sets, daily range): BP systolic 139–155; BP diastolic 82–88; PULSE 90–111; RESP 16–23; TEMP 36.5; O2SAT 90–97; BMI 26.6
--- OUTSIDE RECORDS SUMMARY | 2023-10-21 15:28 | XMS_ITS | Continuity of Care Document ---
Author Name Unknown Organization [facility] Address [address] 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 Two common types of pain medicine are: ? ? Non-opioid pain medicine. This includes NSAIDs. ? ? Opioid pain medicine. These may be called opioids. Pain medicine may not make all of your pain go away. It should make you comfortable enough to move, breathe, and do normal activities. How can pain medicines affect me? Pain medicines can cause side effects such as: ? ? Vomiting or feeling like you may vomit. ? ? Belly pain. Opioids can cause other side effects, such as: ? ? Trouble pooping (constipation). ? ? Feeling very sleepy. ? ? Confusion. ? ? Trouble breathing. ? ? Addiction to opioids. This means that you will take the medicine even though it hurts your health. Taking opioids for longer than 3 days raises your risk of these side effects. Taking opioids for a long time can affect how well you can do daily tasks. It also puts you at risk for: ? ? Car crashes. ? ? Depression. ? ? Suicide. ? ? Heart attack. If you do not take pain medicines correctly, you may be at risk for: ? ? Liver problems. ? ? Kidney problems. ? ? Taking too much of the medicine (overdose). This can lead to . What actions can I take to lower my risk of problems? Know your treatment plan Talk about your treatment plan with your doctor. Both you and your doctor should agree on how you should be treated. ? ? Talk about the goals of your treatment, including: ? ? How much pain you might expect to have. ? ? How you will manage the pain. ? ? Ask your doctor if you can see other doctors who can treat your pain without using medicine. This can include physical therapy and counseling. ? ? Talk about the risks and benefits of taking these medicines for your condition. ? ? Tell your doctor about the amount of medicines you take and about any use of drugs or alcohol. ? ? Get your pain medicine prescriptions from only one doctor. ? ? Keep all follow-up visits. Take your medicine as told ? ? Take pain medicine exactly as told by your doctor. Take it only when you need it. ? ? If your pain is not too bad, you may take less medicine if your doctor allows. ? ? If you have no pain, do not take the medicine unless your doctor tells you to take it. ? ? If your pain is very bad, do not take more medicine than your doctor tells you to take. Call your doctor to know what to do. ? ? If your pain medicine has acetaminophen in it, do not take any other acetaminophen while you are taking this medicine. Too much can damage the liver. ? ? Write down the times when you take your pain medicine. Look at the times before you take your next dose. ? ? Take other fcdk-ygs-bbkugtq or prescription medicines only as told by your doctor. Avoid certain activities While you are taking prescription pain medicine, and for 8 hours after your last dose: ? ? Do not drive. ? ? Do not use machinery. ? ? Do not use power tools. ? ? Do not sign legal documents. ? ? Do not drink alcohol. ? ? Do not take sleeping pills. ? ? Do not take care of children by yourself. ? ? Do not do any activities that involve climbing or being in high places. ? ? Do not go to a serrano, river, ocean, spa, or swimming pool unless an adult is nearby who can monitor and help you. Keep pets and people safe ? ? Store your medicine as told by your doctor. Keep it where children and pets cannot reach it. ? ? Do not share your pain medicine with anyone. ? ? Do not save unused pills. If you have unused pills, you can: ? ? Bring them to a take-back program. ? ? Bring them to a pharmacy that takes back unused pills. ? ? Throw them in the trash. Check the medicine label or package insert to see if it is safe to throw it out. If it is safe, take the medicine out of the container. Mix it with something that makes it unusable, such as pet waste. Then put the medicine in the trash. ? ? Flush them down the toilet only if this is safe to do. To find out: ? ? Check the label or package insert of your medicine. ? ? Read information given by the Food and Drug Administration website: fda.gov Treat or prevent constipation You may need to take these actions to prevent or treat constipation: ? ? Drink enough fluid to keep your pee (urine) pale yellow. ? ? Take hdel-hih-tvlsutv or prescription medicines. ? ? Eat foods that are high in fiber. These include beans, whole grains, and fresh fruits and vegetables. ? ? Limit foods that are high in fat and sugar. These include fried or sweet foods. Contact a doctor if: ? ? Your medicine is not helping with your pain. ? ? You have a rash. ? ? You feel sick to your stomach. ? ? You throw up. ? ? You feel depressed. Get help right away if: ? ? You have trouble breathing. This means: ? ? Breathing that is slower than normal. ? ? Breathing that is more shallow than normal. ? ? You are confused. ? ? You are sleeping a lot, or you have trouble staying awake. ? ? Your skin or lips turn pale or bluish in color. ? ? You tongue swells. ? ? You have thoughts of harming yourself or harming others. These symptoms may be an emergency. Get help right away. Call your local emergency services (911 in the [place] ? ? Do not wait to see if the symptoms will go away. ? ? Do not drive yourself to the hospital. Get help right away if you feel like you may hurt yourself or others, or have thoughts about taking your own life. Go to your nearest emergency room or: ? ? Call your local emergency services (911 in the [place] ? ? Call the National Suicide Prevention Lifeline at or 291 in the [place] This is open 24 hours a day. ? ? Text the Crisis Text Line at 133444. Summary ? ? Pain medicine can help lower your pain. It may also cause side effects. ? ? Take your pain medicine exactly as told by your doctor. ? ? Talk with your doctor about other ways to manage your pain. ? ? Ask what activities you should avoid while taking pain medicine. This information is not intended to replace advice given to you by your health care provider. Make sure you discuss any questions you have with your health care provider. Document Revised: 03/28/2022 Document Reviewed: 01/10/2022 [employer] Patient Education ?? 2021 [employer] Peripheral Vascular Disease Peripheral vascular disease (PVD) is a disease of the blood vessels that carry blood from the heart to the rest of the body. PVD is also called peripheral artery disease (PAD) or poor circulation. PVD affects most of the body. But it affects the legs and feet the most. PVD can lead to acute limb ischemia. This happens when there is a sudden stop of blood flow to an arm or leg. This is a medical emergency. What are the causes? The most common cause of PVD is a buildup of a fatty substance (plaque) inside your arteries. This decreases blood flow. Plaque can break off and block blood in a smaller artery. This can lead to acute limb ischemia. Other common causes of PVD include: ? ? Blood clots inside the blood vessels. ? ? Injuries to blood vessels. ? ? Irritation and swelling of blood vessels. ? ? Sudden tightening of the blood vessel (spasms). What increases the risk? ? ? A family history of PVD. ? ? Medical conditions, including: ??? High cholesterol. ??? Diabetes. ??? High blood pressure. ??? Heart disease. ??? Past problems with blood clots. ??? Past injury, such as martin or a broken bone. ? ? Other conditions, such as: ??? Buerger's disease. This is caused by swollen or irritated blood vessels in your hands and feet. ??? Arthritis. ??? defects that affect the arteries in your legs. ??? Kidney disease. ? ? Using tobacco or nicotine products. ? ? Not getting enough exercise. ? ? Being very overweight (obese). ? ? Being 50 years old or older. What are the signs or symptoms? ? ? Cramps in your butt, legs, and feet. ? ? Pain and weakness in your legs when you are active that goes away when you rest. ? ? Leg pain when at rest. ? ? Leg numbness, tingling, or weakness. ? ? Coldness in a leg or foot, especially when compared with the other leg or foot. ? ? Skin or hair changes. These can include: ??? Hair loss. ??? Shiny skin. ??? Pale or bluish skin. ??? Thick toenails. ? ? Being unable to get or keep an erection. ? ? Tiredness (fatigue). ? ? Weak pulse or no pulse in the feet. ? ? Wounds and sores on the toes, feet, or legs. These take longer to heal. How is this treated? Underlying causes are treated first. Other conditions, like diabetes, high cholesterol, and blood pressure, are also treated. Treatment may include: ? ? Lifestyle changes, such as: ??? Quitting smoking. ??? Getting regular exercise. ??? Having a diet low in fat and cholesterol. ??? Not drinking alcohol. ? ? Taking medicines, such as: ??? Blood thinners. ??? Medicines to improve blood flow. ??? Medicines to improve your blood cholesterol. ? ? Procedures to: ??? Open the arteries and restore blood flow. ??? Insert a small mesh tube (stent) to keep a blocked vessel open. ??? Create a new path for blood to flow to the body (peripheral bypass). ??? Remove tissue from a wound. ??? Remove an affected leg or arm. Follow these instructions at home: Medicines ? ? Take xilm-spq-rhngere and prescription medicines only as told by your doctor. ? ? If you are taking blood thinners: ??? Talk with your doctor before you take any medicines that have aspirin, or NSAIDs, such as ibuprofen. ??? Take medicines exactly as told. Take them at the same time each day. ??? Avoid doing things that could hurt or bruise you. Take action to prevent falls. ??? Wear an alert bracelet or carry a card that shows you are taking blood thinners. Lifestyle ? ? Get regular exercise. Ask your doctor about how to stay active. ? ? Talk with your doctor about keeping a healthy weight. If needed, ask about losing weight. ? ? Eat a diet that is low in fat and cholesterol. If you need help, talk with your doctor. ? ? Do not drink alcohol. ? ? Do not smoke or use any products that contain nicotine or tobacco. If you need help quitting, ask your doctor. General instructions ? ? Take good care of your feet. To do this: ??? Wear shoes that fit well and feel good. ??? Check your feet often for any cuts or sores. ? ? Get a flu shot (influenza vaccine) each year. ? ? Keep all follow-up visits. Where to find more information ? ? Society for Vascular Surgery: vascular.org ? ? [place] Heart Association: heart.org ? ? National Heart, Lung, and Blood [place]: nhlbi.nih.gov Contact a doctor if: ? ? You have cramps in your legs when you walk. ? ? You have leg pain when you rest. ? ? Your leg or foot feels cold. ? ? Your skin changes. ? ? You cannot get or keep an erection. ? ? You have cuts or sores on your legs or feet that do not heal. Get help right away if: ? ? You have sudden changes in the color and feeling of your arms or legs, such as: ??? Your arm or leg turns cold, numb, and blue. ??? Your arm or leg becomes red, warm, swollen, painful, or numb. ? ? You have any signs of a stroke. BE FAST is an easy way to remember the main warning signs: B - Balance. Dizziness, sudden trouble walking, or loss of balance. E - Eyes. Trouble seeing or a change in how you see. F - Face. Sudden weakness or loss of feeling of the face. The face or eyelid may droop on one side. A - Arms. Weakness or loss of feeling in an arm. This happens all of a sudden and most often on one side of the body. S - Speech. Sudden trouble speaking, slurred speech, or trouble understanding what people say. T - Time. Time to call emergency services. Write down what time symptoms started. ? ? You have other signs of a stroke, such as: ??? A sudden, very bad headache with no known cause. ??? Feeling like you may vomit (nausea). ??? Vomiting. ??? A seizure. ? ? You have chest pain or trouble breathing. These symptoms may be an emergency. Get help right away. Call your local emergency services (911 in the [place] ? ? Do not wait to see if the symptoms will go away. ? ? Do not drive yourself to the hospital. Summary ? ? Peripheral vascular disease (PVD) is a disease of the blood vessels. ? ? PVD affects the legs and feet the most. ? ? Symptoms may include leg pain or leg numbness, tingling, and weakness. ? ? Treatment may include lifestyle changes, medicines, and procedures. Document Revised: 03/06/2021 Document Reviewed: 03/06/2021 [employer] Patient Education ?? 2021 [employer]. Femoropopliteal Bypass A femoropopliteal bypass is a surgery to allow blood to go around (bypass) a blocked artery in the leg. The artery may become blocked with plaque, which is a buildup of fat. Arteries carry blood that brings oxygen and nutrients to the body. The femoral artery is in the upper part of the leg. It is the main artery that carries blood to the leg. Popliteal arteries are in the back of the knee. These arteries take blood to the lower part of the leg. In this procedure, a graft is put in to bypass the blocked artery. The graft can be one of your own veins that has been taken from another part of your leg, or it can be made of a manufactured material, such as plastic or fabric. Tell a health care provider about: ? ? Any allergies you have. ? ? All medicines you are taking, including vitamins, herbs, eye drops, creams, and kdfd-bac-aiowvsd medicines. ? ? Any problems you or family members have had with anesthetic medicines. ? ? Any blood disorders you have. ? ? Any surgeries you have had. ? ? Any medical conditions you have. ? ? Whether you are or may be . What are the risks? Generally, this is a safe procedure. However, problems may occur, including: ? ? Bleeding. ? ? Blood clots that form in the graft or the leg and block blood flow. ? ? Blood clots that form and break loose. These can travel to the lungs or the brain and cause breathing difficulty or a stroke. ? ? Failure of the procedure. ? ? Infection. ? ? Damage to other structures or organs, such as nerve damage. ? ? Heart attack. ? ? Pneumonia. ? ? Allergic reactions to medicines or dyes. What happens before the procedure? Medicines Ask your health care provider about: ? ? Changing or stopping your regular medicines. This is especially important if you are taking diabetes medicines or blood thinners. ? ? Taking medicines such as aspirin and ibuprofen. These medicines can thin your blood. Do not take these medicines unless your health care provider tells you to take them. ? ? Taking xayg-eww-gqkvuku medicines, vitamins, herbs, and supplements. Eating and drinking Follow instructions from your health care provider about eating and drinking, which may include: ? ? 8 hours before the procedure ? stop eating heavy meals or foods, such as meat, fried foods, or fatty foods. ? ? 6 hours before the procedure ? stop eating light meals or foods, such as toast or cereal. ? ? 6 hours before the procedure ? stop drinking milk or drinks that contain milk. ? ? 2 hours before the procedure ? stop drinking clear liquids. Staying hydrated Follow instructions from your health care provider about hydration, which may include: ? ? Up to 2 hours before the procedure ? you may continue to drink clear liquids, such as water, clear fruit juice, black coffee, and plain tea. General instructions ? ? Plan to have someone take you home from the hospital or clinic. ? ? Ask your health care provider: ??? How your surgery site will be marked. ??? What steps will be taken to help prevent infection. These may include: ? ? Removing hair at the surgery site. ? ? Washing skin with a germ-killing soap. ? ? Receiving antibiotic medicine. ? ? You may have tests, including: ??? Blood tests. ??? A test to check your heart's rhythm (electrocardiogram). ??? A test to look inside your arteries to see how the blood is flowing (angiogram). ? ? Do not use any products that contain nicotine or tobacco for at least 4 weeks before the procedure. These products include cigarettes, e-cigarettes, and chewing tobacco. If you need help quitting, ask your health care provider. What happens during the procedure? ? ? An IV will be inserted into one of your veins. ? ? You will be given one or more of the following: ??? A medicine to help you relax (sedative). ??? A medicine to make you fall asleep (general anesthetic). ??? A medicine that is injected into your spine to numb the area below and slightly above the injection site (spinal anesthetic). ??? A medicine that is injected into an area of your body to numb everything below the injection site (regional anesthetic). ? ? A small, thin tube (catheter) will be placed into your bladder to drain urine during and after the procedure. ? ? If the graft will come from one of your own veins (autograft): ??? An incision will be made in your leg near the portion of the autograft vein that will be used. ??? After the autograft is removed, this incision will be closed. ? ? To insert the graft, the surgeon will: ??? Make an incision in your groin area so he or she can locate your femoral artery. ??? Place a clamp above the area where the femoral artery is blocked. ??? Sew the graft into the artery above the blocked area. ??? Make another incision lower in the leg over the popliteal artery. This is usually behind the knee. ??? Place a clamp on the popliteal artery and then bring the other end of the graft down under the skin between the two incisions. ??? Sew the free end of the graft into the popliteal artery. ? ? The clamps will be removed, and the attachments will be checked for leaking. ? ? You may have an X-ray done after a dye is injected (arteriogram). This is to check the blood flow through the graft. ? ? The incisions will be closed with stitches (sutures) or sailaja. ? ? Bandages (dressings) will be applied to the area. The procedure may vary among health care providers and hospitals. What happens after the procedure? ? ? Your blood pressure, heart rate, breathing rate, and blood oxygen level will be monitored until you leave the hospital or clinic. ? ? You may be given medicine for pain. ? ? You may be given medicine for your blood pressure. ? ? Your IV and catheter may be removed when you are taking fluids well and passing urine. ? ? You may be given blood thinner medicine to prevent blood clots. ? ? You may have to wear compression stockings. These help to prevent blood clots and reduce swelling in your legs. ? ? Your surgical site will be checked often to make sure that you have good blood flow in your leg. Health care providers will: Feel for a pulse on your foot. Check your leg for changes in color and temperature and for decreased feeling (sensation) and movement. ? ? You will be encouraged to get up and walk as soon as you are able. This helps to prevent blood clots. ? ? Do not drive for 24 hours if you were given a sedative during your procedure. Summary ? ? A femoropopliteal bypass is a surgery to treat a blocked artery in the leg. ? ? In this procedure, a graft is put in that will allow blood to go around (bypass) the blocked artery. ? ? Follow instructions from your health care provider about taking medicines and about eating and drinking before the procedure. Document Revised: 08/17/2019 Document Reviewed: 08/17/2019 [employer] Patient Education ?? 2021 [employer] Care after Femoropopliteal Bypass What can I expect after the procedure? After the procedure, it is common to have: ? ? Discomfort or pain near the incisions. ? ? Swelling in your leg or foot. ? ? Numbness in your groin, lower leg, or foot. Follow these instructions at home: Incision care ? ? Follow instructions from your health care provider about how to take care of your incisions. Make sure you: ??? Wash your hands with soap and water before and after you change your bandages (dressings). If soap and water are not available, use hand talent engineer. ??? Change your dressings as told by your health care provider. ??? Leave stitches (sutures), skin glue, or adhesive strips in place. These skin closures may need to stay in place for 2 weeks or longer. If adhesive strip edges start to loosen and curl up, you may trim the loose edges. Do not remove adhesive strips completely unless your health care provider tells you to do that. ? ? Check your incision areas every day for signs of infection. Check for: ??? More redness, swelling, or pain. ??? Fluid or blood. ??? Warmth. ??? Pus or a bad smell. Medicines ? ? Take nunh-mui-ohxuwzg and prescription medicines only as told by your health care provider. ? ? If you were prescribed an antibiotic medicine, take it as told by your health care provider. Do not stop taking the antibiotic even if you start to feel better. ? ? Ask your health care provider if the medicine prescribed to you requires you to avoid driving or using heavy machinery. Activity ? ? Do not lift anything that is heavier than 10 lb (4.5 kg), or the limit that you are told, until your health care provider says that it is safe. ? ? Until your health care provider approves: ??? Do not take long car trips. ??? Do not travel by air. ? ? Avoid sitting for long periods of time. Change positions every 30 minutes. ? ? Do any exercises that your health care providers have given you. These may include deep breathing, coughing, and walking exercises. ? ? Raise (elevate) your legs above the level of your heart while you are sitting or lying down. ? ? Return to your normal activities as told by your health care provider. Ask your health care provider what activities are safe for you. General instructions ? ? Do not drive for 24 hours if you were given a sedative during your procedure. ? ? Do not use any products that contain nicotine or tobacco, such as cigarettes, e-cigarettes, and chewing tobacco. These can delay healing after surgery. If you need help quitting, ask your health care provider. ? ? Do not take baths, swim, or use a hot tub until your health care provider approves. Ask your health care provider if you may take showers. You may only be allowed to take sponge baths. ? ? Wear compression stockings as told by your health care provider. These stockings help to prevent blood clots and reduce swelling in your legs. ? ? Keep all follow-up visits as told by your health care provider. This is important. Contact a health care provider if: ? ? Medicine does not help your pain. ? ? You feel nauseous or you vomit. ? ? You feel weak and tired for more than a week after your procedure. ? ? You have a fever or chills. ? ? You have more redness, swelling, or pain around an incision. ? ? You have fluid or blood coming from an incision. ? ? An incision feels warm to the touch. ? ? You have pus or a bad smell coming from an incision. Get help right away if: ? ? You have bleeding from an incision that does not stop after heavy pressure has been applied for 30 minutes. ? ? You have chest pain. ? ? You faint. ? ? You have dizziness. ? ? Your pain is severe. ? ? You are short of breath or you have trouble breathing. ? ? Your leg or foot becomes cold, pale, or numb. ? ? You have red streaks coming from an incision. Summary ? ? Change your dressings as told by your health care provider. Check your incision areas every day for signs of infection. ? ? Do not lift anything that is heavier than 10 lb (4.5 kg), or the limit that you are told, until your health care provider says that it is safe. ? ? Do any exercises that your health care providers have given you. These may include deep breathing, coughing, and walking exercises. ? ? Keep all follow-up visits as told by your health care provider. This is important. Document Revised: 08/17/2019 Document Reviewed: 08/17/2019 [employer] Patient Education ?? 2021 [employer] Incision Care An incision is a cut that a doctor makes in your skin for surgery. Most times, these cuts are closed after surgery. Your cut from surgery may be closed with: ? ? Stitches (sutures). ? ? Sailaja. ? ? Skin glue. ? ? Skin tape (adhesive) strips. You may need to go back to your doctor to have stitches or sailaja taken out. This may happen many days or many weeks after your surgery. You need to take good care of your cut so it does not get infected. Follow instructions from your doctor about how to care for your cut. Supplies needed: ? ? Soap and water. ? ? A clean hand towel. ? ? Wound cleanser. ? ? A clean bandage (dressing), if needed. ? ? Cream or ointment, if told by your doctor. ? ? Clean gauze. How to care for your cut from surgery Cleaning your cut Ask your doctor how to clean your cut. You may need to: ? ? Wear medical gloves. ? ? Use mild soap and water, or a wound cleanser. ? ? Use a clean gauze to pat your cut dry after you clean it. Changing your bandage ? ? Wash your hands with soap and water for at least 20 seconds before and after you change your bandage. If you cannot use soap and water, use hand talent engineer. ? ? Do not use disinfectants or antiseptics, such as rubbing alcohol, to clean your wound unless told by your doctor. ? ? Change your bandage as told by your doctor. ? ? Leave stitches or skin glue in place for at least 2 weeks. ? ? Leave tape strips alone unless you are told to take them off. You may trim the edges of the tape strips if they curl up. ? ? Put a cream or ointment on your cut. Do this only as told. ? ? Cover your cut with a clean bandage. ? ? Ask your doctor when you can leave your cut uncovered. Checking for infection Check your cut area every day for signs of infection. Check for: ? ? More redness, swelling, or pain. ? ? More fluid or blood. ? ? New warmth. ? ? Hardness or a new rash around the incision. ? ? Pus or a bad smell. Follow these instructions at home Medicines ? ? Take tzhb-fyv-zhhycoa and prescription medicines only as told by your doctor. ? ? If you were prescribed an antibiotic medicine, cream, or ointment, use it as told by your doctor. Do not stop using the antibiotic even if you start to feel better. Eating and drinking ? ? Eat foods that have a lot of certain nutrients, such as protein, vitamin A, and vitamin C. These foods help your cut heal. ??? Foods rich in protein include meat, fish, eggs, dairy, beans, nuts, and protein drinks. ??? Foods rich in vitamin A include carrots and dark green, leafy vegetables. ??? Foods rich in vitamin C include citrus fruits, tomatoes, broccoli, and peppers. ? ? Drink enough fluid to keep your pee (urine) pale yellow. General instructions ? ? Do not take baths, swim, or use a hot tub. Ask your doctor about taking showers or sponge baths. ? ? Limit movement around your cut. This helps with healing. ??? Try not to strain, lift, or exercise for the first 2 weeks, or for as long as told by your doctor. ??? Return to your normal activities as told by your doctor. Ask your doctor what activities are safe for you. ? ? Do not scratch, scrub, or pick at your cut. Keep it covered as told by your doctor. ? ? Protect your cut from the sun when you are outside for the first 6 months, or for as long as told by your doctor. Cover up the scar area or put on sunscreen that has an SPF of at least 30. ? ? Do not use any products that contain nicotine or tobacco, such as cigarettes, e-cigarettes, and chewing tobacco. These can delay cut healing. If you need help quitting, ask your doctor. ? ? Keep all follow-up visits. Contact a doctor if: ? ? You have any of these signs of infection around your cut: ??? More redness, swelling, or pain. ??? More fluid or blood. ??? New warmth or hardness. ??? Pus or a bad smell. ??? A new rash. ? ? You have a fever. ? ? You feel like you may vomit (nauseous). ? ? You vomit. ? ? You are dizzy. ? ? Your stitches, sailaja, skin glue, or tape strips come undone. ? ? Your cut gets bigger. ? ? You have a fever. Get help right away if: ? ? Your cut bleeds through your bandage, and bleeding does not stop with gentle pressure. ? ? Your cut opens up and comes apart. Summary ? ? Follow instructions from your doctor about how to care for your cut. ? ? Wash your hands with soap and water for at least 20 seconds before and after you change your bandage. If you cannot use soap and water, use hand talent engineer. ? ? Check your cut area every day for signs of infection. ? ? Keep all follow-up visits. Document Revised: 12/04/2021 Document Reviewed: 12/04/2021 [employer] Patient Education ?? 2021 [employer] How to Prevent Constipation After Surgery Constipation is a common problem after surgery. Many things can make constipation more likely after a surgery, including: ? ? Certain medicines, especially numbing medicines (anesthetics) and very strong pain medicines called opioids. ? ? Feeling stressed because of the surgery. ? ? Eating different foods than normal. ? ? Being less active. Symptoms of constipation include: ? ? Having fewer than three bowel movements a week. ? ? Straining to have a bowel movement. ? ? Having hard, dry, or szrfqm-nypn-oayyjh stools (feces). ? ? Discomfort in the lower abdomen, such as cramps or bloating. ? ? Not feeling relief after having a bowel movement. ? ? Nausea and vomiting. You can take steps to help prevent constipation after surgery. Follow these instructions at home: Eating and drinking ? ? Eat foods that have a lot of fiber in them, such as beans, bran, whole grains, and fresh fruits and vegetables. ? ? Limit foods that are high in fat and processed sugars, such as fried or sweet foods. These include qatari fries, hamburgers, cookies, and candy. ? ? Take a fiber supplement as told by your health care provider. If you are not taking a fiber supplement and you think you are not getting enough fiber from foods, talk to your health care provider about adding a fiber supplement to your diet. ? ? Drink enough fluid to keep your urine pale yellow. ? ? Drink clear fluids, especially water. Avoid drinking alcohol, caffeine, and soda. These can make constipation worse. Activity ? ? After surgery, return to your normal activities slowly, or when your health care provider says it is okay. ? ? Start walking as soon as you can. Try to go a little farther each day. ? ? Once your health care provider approves, do some sort of regular exercise. This helps prevent constipation. Bowel movements ? ? Go to the restroom when you have the urge to go. Do not hold it in. ? ? Try drinking something hot to get a bowel movement started. ? ? Keep track of how often you use the restroom. Medicines ? ? Take mqhx-oqi-ovetutb and prescription medicines only as told by your health care provider. ? ? Talk to your health care provider about medicines that may help prevent constipation, particularly if you have a history of constipation. Your health care provider may suggest a stool softener, laxative, or fiber supplement. ? ? Do not take any medicines without talking to your health care provider first. Contact a health care provider if: ? ? You used stool softeners or laxatives and still have not had a bowel movement within 24? 48 hours after using them. ? ? You have not had a bowel movement in 3 days. ? ? You have a fever. Get help right away if you have: ? ? Constipation that lasts for more than 4 days or if your symptoms get worse. ? ? Bright red blood in your stool. ? ? Pain in the abdomen or rectum. ? ? Very bad cramping. ? ? Thin, pencil-like stools. ? ? Unexplained weight loss. Summary ? ? Constipation is a common problem after surgery. Many things can make constipation more likely after a surgery, including certain medicines, eating different foods than normal, and being less active. ? ? Symptoms of constipation include having fewer than three bowel movements a week, straining to have a bowel movement, and cramps or bloating in the lower abdomen. ? ? To help prevent constipation, you should eat foods that are high in fiber, drink plenty of fluids, and get regular physical activity. ? ? Your health care provider may suggest medicines, such as stool softeners or laxatives, to help prevent constipation. Document Revised: 07/20/2020 Document Reviewed: 07/20/2020 [employer] Patient Education ?? 2021 [employer]. Basics of Medicine Management Taking your medicines correctly is an important part of managing or preventing medical problems. Make sure you know what disease or condition your medicine is treating, and how and when to take it. If you do not take your medicine correctly, it may not work well and may cause unpleasant side effects, including serious health problems. What should I do when I am taking medicines? ? ? Read all the labels and inserts that come with your medicines. Review the information often and with each refill. ? ? Talk with your pharmacist if you get a refill and notice a change in the size, color, or shape of your medicines. ? ? Know the potential side effects for each medicine that you take. ? ? Try to get all your medicines from the same pharmacy. The pharmacist will have all your information and will understand how your medicines will affect each other (interact). ? ? Always carry an updated list of your medicines with you. If there is an emergency, a nurse first aid can quickly see what medicines you are taking. ? ? Tell your health care provider about all your medicines, including vdvg-pzh-exipenl medicines, vitamins, and herbal or dietary supplements. Your health care provider will make sure that nothing will interact with any of your prescribed medicines. How can I take my medicines safely? ? ? Take medicines only as told by your health care provider. ??? Do not take more of your medicine than instructed. ??? Do not take anyone else's medicines. ??? Do not share your medicines with others. ??? Do not stop taking your medicines unless your health care provider tells you to do so. ??? You may need to avoid alcohol or certain foods or liquids when taking certain medicines. Follow your health care provider's instructions. ? ? Do not split, cut, crush, or chew your medicines unless your health care provider tells you to do so. Tell your health care provider if you have trouble swallowing your medicines. ? ? For liquid medicine, use the dosing container that was provided. Household spoons are not accurate. How should I organize my medicines? Know your medicines ? ? Know what each of your medicines looks like. This includes size, color, and shape. Tell your health care provider if you are having trouble recognizing all the medicines that you are taking. ? ? If you cannot tell your medicines apart because they look similar, keep them in the original bottles. ? ? If you cannot read the labels on the bottles, tell your pharmacist to put your medicines in containers with large print. ? ? Review your medicines and your schedule with family members, a friend, or a caregiver. Use a pill organizer ? ? Use a tool to organize your medicine schedule. Tools include a weekly pillbox, a written chart, a notebook, or a calendar. ? ? Your tool should help you remember the following things about each medicine: ??? The name of the medicine. ??? The amount (dose) to take. ??? The schedule. This is the day and time the medicine should be taken. ??? The appearance. This includes color, shape, size, and stamp. ??? How to take your medicines. This includes instructions to take them with food, without food, with fluids, or with other medicines. ? ? Create reminders for taking your medicines. Use sticky notes, or use alarms on your watch, mobile device, or phone calendar. ? ? You may choose to use a more advanced management system. These systems have storage, alarms, and visual and audio prompts. ? ? Some medicines can be taken on an as-needed basis. These may include medicines for nausea, constipation, pain, cough and cold, allergies, and anxiety. If you take an as-needed medicine, write down the name and dose, as well as the date and time that you took it. How should I plan for travel? ? ? Take your pillbox, medicines, and organization system with you when traveling. ? ? Have your medicines refilled before you travel. This will ensure that you do not run out of your medicines while you are away from home. ? ? Always carry an updated list of your medicines with you. If there is an emergency, a nurse first aid can quickly see what medicines you are taking. ? ? Do not pack your medicines in checked luggage in case your luggage is lost or delayed. Keep your medicines in your carry-on bag. ? ? If any of your medicines is considered a controlled substance, make sure you bring a letter from your health care provider with you. How should I store and discard my medicines? For safe storage: ? ? Store medicines in a cool, dry area away from light, or as directed by your health care provider. Do not store medicines in the bathroom. Heat and humidity will affect them. ? ? Do not store your medicines with other chemicals or with medicines for pets or other household members. ? ? Keep medicines away from children and pets. Do not leave them on counters or bedside tables. Store them in high cabinets or on high shelves. For safe disposal: ? ? Check expiration dates regularly. Do not take medicines. Discard medicines that are older than the expiration date. ? ? Learn a safe way to dispose of your medicines. You may: ??? Use a local government, hospital, or pharmacy ocfeapte-slem-okds program. ??? If you cannot return the medicine, check the label or package insert to see if the medicine should be thrown out in the garbage or flushed down the toilet. If you are not sure, ask your health care team. ??? If it is safe to put the medicine in the trash, empty the medicine out of the container. Mix the medicine with cat litter, dirt, coffee grounds, or another unwanted substance. Seal the mixture in a bag or container. Put it in the trash. What should I remember? ? ? Tell your health care provider if you: ??? Experience side effects. ??? Have new symptoms. ??? Feel that your medicine is no longer working. ??? Have other concerns about taking your medicines. ? ? Review your medicines regularly with your health care provider. Other medicines, diet, medical conditions, weight changes, and daily habits can all affect how medicines work. Ask if you need to continue taking each medicine, and discuss how well each one is working. ? ? Refill your medicines early to avoid running out of them. ? ? In case of an accidental overdose, call your local poison control center at or go to your local emergency department right away. Summary ? ? Taking your medicines correctly is an important part of managing or preventing medical problems. ? ? You need to make sure that you understand what you are taking a medicine for, as well as how and when you need to take it. ? ? Use a tool to organize your medicine schedule. Tools include a weekly pillbox, a written chart, a notebook, or a calendar. ? ? In case of an accidental overdose, call your local Poison Control Center at or go to your local emergency department right away. Document Revised: 04/10/2022 Document Reviewed: 04/10/2022 [employer] Patient Education ?? 2021 [employer]. Fall Prevention in the Home, Adult Falls can cause injuries and can happen to people of all ages. There are many things you can do to make your home safe and to help prevent falls. Ask for help when making these changes. What actions can I take to prevent falls? General Instructions ? ? Use good lighting in all rooms. Replace any light bulbs that burn out. ? ? Turn on the lights in dark areas. Use night-lights. ? ? Keep items that you use often in mzte-pe-inlpf places. Lower the shelves around your home if needed. ? ? Set up your furniture so you have a clear path. Avoid moving your furniture around. ? ? Do not have throw rugs or other things on the floor that can make you trip. ? ? Avoid walking on wet floors. ? ? If any of your floors are uneven, fix them. ? ? Add color or contrast paint or tape to clearly emesron and help you see: ??? Grab bars or handrails. ??? First and last steps of staircases. ??? Where the edge of each step is. ? ? If you use a stepladder: ??? Make sure that it is fully opened. Do not climb a closed stepladder. ??? Make sure the sides of the stepladder are locked in place. ??? Ask someone to hold the stepladder while you use it. ? ? Know where your pets are when moving through your home. What can I do in the bathroom? ? ? Keep the floor dry. Clean up any water on the floor right away. ? ? Remove soap buildup in the tub or shower. ? ? Use nonskid mats or decals on the floor of the tub or shower. ? ? Attach bath mats securely with double-sided, nonslip rug tape. ? ? If you need to sit down in the shower, use a plastic, nonslip stool. ? ? Install grab bars by the toilet and in the tub and shower. Do not use towel bars as grab bars. What can I do in the bedroom? ? ? Make sure that you have a light by your bed that is easy to reach. ? ? Do not use any sheets or blankets for your bed that hang to the floor. ? ? Have a firm chair with side arms that you can use for support when you get dressed. What can I do in the kitchen? ? ? Clean up any spills right away. ? ? If you need to reach something above you, use a step stool with a grab bar. ? ? Keep electrical cords out of the way. ? ? Do not use floor danish or wax that makes floors slippery. What can I do with my stairs? ? ? Do not leave any items on the stairs. ? ? Make sure that you have a light switch at the top and the bottom of the stairs. ? ? Make sure that there are handrails on both sides of the stairs. Fix handrails that are broken or loose. ? ? Install nonslip stair treads on all your stairs. ? ? Avoid having throw rugs at the top or bottom of the stairs. ? ? Choose a carpet that does not hide the edge of the steps on the stairs. ? ? Check carpeting to make sure that it is firmly attached to the stairs. Fix carpet that is loose or worn. What can I do on the outside of my home? ? ? Use bright outdoor lighting. ? ? Fix the edges of walkways and driveways and fix any cracks. ? ? Remove anything that might make you trip as you walk through a door, such as a raised step or threshold. ? ? Trim any bushes or trees on paths to your home. ? ? Check to see if handrails are loose or broken and that both sides of all steps have handrails. ? ? Install guardrails along the edges of any raised decks and porches. ? ? Clear paths of anything that can make you trip, such as tools or rocks. ? ? Have leaves, snow, or ice cleared regularly. ? ? Use sand or salt on paths during winter. ? ? Clean up any spills in your garage right away. This includes grease or oil spills. What other actions can I take? ? ? Wear shoes that: ??? Have a low heel. Do not wear high heels. ??? Have rubber bottoms. ??? Feel good on your feet and fit well. ??? Are closed at the toe. Do not wear open-toe sandals. ? ? Use tools that help you move around if needed. These include: ??? Canes. ??? Walkers. ??? Scooters. ??? Crutches. ? ? Review your medicines with your doctor. Some medicines can make you feel dizzy. This can increase your chance of falling. Ask your doctor what else you can do to help prevent falls. Where to find more information ? ? Centers for Disease Control and Prevention, [place]: www.cdc.gov ? ? National [place] on Aging: www.luh.nih.gov Contact a doctor if: ? ? You are afraid of falling at home. ? ? You feel weak, drowsy, or dizzy at home. ? ? You fall at home. Summary ? ? There are many simple things that you can do to make your home safe and to help prevent falls. ? ? Ways to make your home safe include removing things that can make you trip and installing grab bars in the bathroom. ? ? Ask for help when making these changes in your home. This information is not intended to replace advice given to you by your health care provider. Make sure you discuss any questions you have with your health care provider. Document Revised: 04/05/2021 Document Reviewed: 04/05/2021 [employer] Patient Education ?? 2021 [employer]. October 2022 Peripheral Vascular Disease Peripheral vascular disease (PVD) is a disease of the blood vessels that carry blood from the heart to the rest of the body. PVD is also called peripheral artery disease (PAD) or poor circulation. PVD affects most of the body. But it affects the legs and feet the most. PVD can lead to acute limb ischemia. This happens when there is a sudden stop of blood flow to an arm or leg. This is a medical emergency. What are the causes? The most common cause of PVD is a buildup of a fatty substance (plaque) inside your arteries. This decreases blood flow. Plaque can break off and block blood in a smaller artery. This can lead to acute limb ischemia. Other common causes of PVD include: ? ? Blood clots inside the blood vessels. ? ? Injuries to blood vessels. ? ? Irritation and swelling of blood vessels. ? ? Sudden tightening of the blood vessel (spasms). What increases the risk? ? ? A family history of PVD. ? ? Medical conditions, including: ? ? High cholesterol. ? ? Diabetes. ? ? High blood pressure. ? ? Heart disease. ? ? Past problems with blood clots. ? ? Past injury, such as martin or a broken bone. ? ? Other conditions, such as: ? ? Buerger's disease. This is caused by swollen or irritated blood vessels in your hands and feet. ? ? Arthritis. ? ? defects that affect the arteries in your legs. ? ? Kidney disease. ? ? Using tobacco or nicotine products. ? ? Not getting enough exercise. ? ? Being very overweight (obese). ? ? Being 50 years old or older. What are the signs or symptoms? ? ? Cramps in your butt, legs, and feet. ? ? Pain and weakness in your legs when you are active that goes away when you rest. ? ? Leg pain when at rest. ? ? Leg numbness, tingling, or weakness. ? ? Coldness in a leg or foot, especially when compared with the other leg or foot. ? ? Skin or hair changes. These can include: ? ? Hair loss. ? ? Shiny skin. ? ? Pale or bluish skin. ? ? Thick toenails. ? ? Being unable to get or keep an erection. ? ? Tiredness (fatigue). ? ? Weak pulse or no pulse in the feet. ? ? Wounds and sores on the toes, feet, or legs. These take longer to heal. How is this treated? Underlying causes are treated first. Other conditions, like diabetes, high cholesterol, and blood pressure, are also treated. Treatment may include: ? ? Lifestyle changes, such as: ? ? Quitting smoking. ? ? Getting regular exercise. ? ? Having a diet low in fat and cholesterol. ? ? Not drinking alcohol. ? ? Taking medicines, such as: ? ? Blood thinners. ? ? Medicines to improve blood flow. ? ? Medicines to improve your blood cholesterol. ? ? Procedures to: ? ? Open the arteries and restore blood flow. ? ? Insert a small mesh tube (stent) to keep a blocked vessel open. ? ? Create a new path for blood to flow to the body (peripheral bypass). ? ? Remove tissue from a wound. ? ? Remove an affected leg or arm. Follow these instructions at home: Medicines ? ? Take zsbl-tgm-kxzzhew and prescription medicines only as told by your doctor. ? ? If you are taking blood thinners: ? ? Talk with your doctor before you take any medicines that have aspirin, or NSAIDs, such as ibuprofen. ? ? Take medicines exactly as told. Take them at the same time each day. ? ? Avoid doing things that could hurt or bruise you. Take action to prevent falls. ? ? Wear an alert bracelet or carry a card that shows you are taking blood thinners. Lifestyle ? ? Get regular exercise. Ask your doctor about how to stay active. ? ? Talk with your doctor about keeping a healthy weight. If needed, ask about losing weight. ? ? Eat a diet that is low in fat and cholesterol. If you need help, talk with your doctor. ? ? Do not drink alcohol. ? ? Do not smoke or use any products that contain nicotine or tobacco. If you need help quitting, ask your doctor. General instructions ? ? Take good care of your feet. To do this: ? ? Wear shoes that fit well and feel good. ? ? Check your feet often for any cuts or sores. ? ? Get a flu shot (influenza vaccine) each year. ? ? Keep all follow-up visits. Where to find more information ? ? Society for Vascular Surgery: vascular.org ? ? [place] [employer] Association: heart.org ? ? National Heart, Lung, and Blood [place]: nhlbi.nih.gov Contact a doctor if: ? ? You have cramps in your legs when you walk. ? ? You have leg pain when you rest. ? ? Your leg or foot feels cold. ? ? Your skin changes. ? ? You cannot get or keep an erection. ? ? You have cuts or sores on your legs or feet that do not heal. Get help right away if: ? ? You have sudden changes in the color and feeling of your arms or legs, such as: ? ? Your arm or leg turns cold, numb, and blue. ? ? Your arm or leg becomes red, warm, swollen, painful, or numb. ? ? You have any signs of a stroke. BE FAST is an easy way to remember the main warning signs: ? ? B - Balance. Dizziness, sudden trouble walking, or loss of balance. ? ? E - Eyes. Trouble seeing or a change in how you see. ? ? F - Face. Sudden weakness or loss of feeling of the face. The face or eyelid may droop on one side. ? ? A - Arms. Weakness or loss of feeling in an arm. This happens all of a sudden and most often on one side of the body. ? ? S - Speech. Sudden trouble speaking, slurred speech, or trouble understanding what people say. ? ? T - Time. Time to call emergency services. Write down what time symptoms started. ? ? You have other signs of a stroke, such as: ? ? A sudden, very bad headache with no known cause. ? ? Feeling like you may vomit (nausea). ? ? Vomiting. ? ? A seizure. ? ? You have chest pain or trouble breathing. These symptoms may be an emergency. Get help right away. Call your local emergency services (911 in the [place] ? ? Do not wait to see if the symptoms will go away. ? ? Do not drive yourself to the hospital. Summary ? ? Peripheral vascular disease (PVD) is a disease of the blood vessels. ? ? PVD affects the legs and feet the most. ? ? Symptoms may include leg pain or leg numbness, tingling, and weakness. ? ? Treatment may include lifestyle changes, medicines, and procedures. This information is not intended to replace advice given to you by your health care provider. Make sure you discuss any questions you have with your health care provider. Document Revised: 03/06/2021 Document Reviewed: 03/06/2021 [employer] Patient Education ?? 2021 [employer]. Medication Leaflets: oxycodone (ox i KOE done) Oxaydo, OxyCONTIN, Roxicodone, RoxyBond, Xtampza ER What is the most important information I should know about oxycodone? MISUSE OF OPIOID MEDICINE CAN CAUSE ADDICTION, OVERDOSE, OR . Keep the medication in a place where others cannot get to it. Taking opioid medicine during may cause life-threatening withdrawal symptoms in the . Fatal side effects can occur if you use opioid medicine with alcohol, or with other drugs that cause drowsiness or slow your breathing. What is oxycodone? Oxycodone is an opioid pain medication used to treat moderate to severe pain. The extended-release form of oxycodone is for qirptc-nuj-rtndu treatment of pain and should not be used on an as-needed basis for pain. Oxycodone may also be used for purposes not listed in this medication guide. What should I discuss with my healthcare provider before using oxycodone? You should not use oxycodone if you are allergic to it, or if you have: ? severe asthma or breathing problems; or ? ? a blockage in your stomach or intestines. You should not use oxycodone unless you are already using a similar opioid medicine and are tolerant to it. Most brands of oxycodone are not approved for use in people under 18. OxyContin should not be given to a child younger than 11 years old. Tell your doctor if you have ever had: ? breathing problems, sleep apnea; ? ? a head injury, or seizures; ? ? drug or alcohol addiction, or mental illness; ? ? liver or kidney disease; ? ? urination problems; or ? ? problems with your gallbladder, pancreas, or thyroid. If you use opioid medicine while you are , your baby could become dependent on the drug. This can cause life-threatening withdrawal symptoms in the baby after it is born. Babies born dependent on opioids may need medical treatment for several weeks. Ask a doctor before using opioid medicine if you are . Tell your doctor if you notice severe drowsiness or slow breathing in the nursing baby. How should I use oxycodone? Follow the directions on your prescription label and read all medication guides. Never use oxycodone in larger amounts, or for longer than prescribed. Tell your doctor if you feel an increased urge to take more of this medicine. Never share opioid medicine with another person, especially someone with a history of drug abuse or addiction. MISUSE CAN CAUSE ADDICTION, OVERDOSE, OR . Keep the medication in a place where others cannot get to it. Selling or giving away opioid medicine is against the law. Stop taking all other vliwdg-sma-wicqa opioid pain medicines when you start taking extended-release oxycodone. Take oxycodone with food. Swallow the capsule or tablet whole to avoid exposure to a potentially fatal overdose. Do not crush, chew, break, open, or dissolve. If you cannot swallow a capsule whole, open it and sprinkle the medicine into a spoonful of pudding or applesauce. Swallow the mixture right away without chewing. Do not save it for later use. Never crush or break an oxycodone pill to inhale the powder or mix it into a liquid to inject the drug into your vein. This can cause in . Measure liquid medicine carefully. Use the dosing syringe provided, or use a medicine dose-measuring device (not a kitchen spoon). You should not stop using oxycodone suddenly. Follow your doctor's instructions about tapering your dose. Store at room temperature, away from heat, moisture, and light. Keep track of your medicine. Oxycodone is a drug of abuse and you should be aware if anyone is using your medicine improperly or without a prescription. Do not keep leftover opioid medication. Just one dose can cause in someone using this medicine accidentally or improperly. Ask your pharmacist where to locate a drug take-back disposal program. If there is no take-back program, flush the unused medicine down the toilet. What happens if I miss a dose? Since oxycodone is used for pain, you are not likely to miss a dose. Skip any missed dose if it is almost time for your next dose. Do not use two doses at one time. What happens if I overdose? Seek emergency medical attention or call the Poison Help line at . An opioid overdose can be fatal, especially in a child or other person using the medicine without a prescription. Overdose symptoms may include severe drowsiness, pinpoint pupils, slow breathing, or no breathing. Your doctor may recommend you get naloxone (a medicine to reverse an opioid overdose) and keep it with you at all times. A person caring for you can give the naloxone if you stop breathing or don't wake up. Your caregiver must still get emergency medical help and may need to perform CPR (cardiopulmonary resuscitation) on you while waiting for help to arrive. Anyone can buy naloxone from a pharmacy or local health department. Make sure any person caring for you knows where you keep naloxone and how to use it. What should I avoid while using oxycodone? Do not drink alcohol. Dangerous side effects or could occur. Avoid driving or operating machinery until you know how oxycodone will affect you. Dizziness or severe drowsiness can cause falls or other accidents. Avoid medication errors. Always check the brand and strength of oxycodone you get from the pharmacy. What are the possible side effects of oxycodone? Get emergency medical help if you have signs of an allergic reaction: hives; difficult breathing; swelling of your face, lips, tongue, or throat. Opioid medicine can slow or stop your breathing, and may occur. A person caring for you should give naloxone and/or seek emergency medical attention if you have slow breathing with long pauses, blue colored lips, or if you are hard to wake up. Call your doctor at once if you have: ? noisy breathing, sighing, shallow breathing, breathing that stops during sleep; ? ? a slow heart rate or weak pulse; ? ? a light-headed feeling, like you might pass out; ? ? confusion, unusual thoughts or behavior; ? ? seizure (convulsions); ? ? low cortisol levels-- nausea, vomiting, loss of appetite, dizziness, worsening tiredness or weakness; or ? ? high levels of serotonin in the body--agitation, hallucinations, fever, sweating, shivering, fast heart rate, muscle stiffness, twitching, loss of coordination, nausea, vomiting, diarrhea. Serious breathing problems may be more likely in older adults and in those who are debilitated or have wasting syndrome or chronic breathing disorders. Common side effects may include: ? drowsiness, headache, dizziness, tiredness; or ? ? constipation, stomach pain, nausea, vomiting. This is not a complete list of side effects and others may occur. Call your doctor for medical advice about side effects. You may report side effects to FDA at 1-410-ZSN-7531. What other drugs will affect oxycodone? You may have breathing problems or withdrawal symptoms if you start or stop taking certain other medicines. Tell your doctor if you also use an antibiotic, antifungal medication, heart or blood pressure medication, seizure medication, or medicine to treat HIV or hepatitis C. Opioid medication can interact with many other drugs and cause dangerous side effects or . Be sure your doctor knows if you also use: ? cold or allergy medicines, bronchodilator asthma/COPD medication, or a diuretic ('water pill'); ? ? medicines for motion sickness, irritable bowel syndrome, or overactive bladder; ? ? other opioids--opioid pain medicine or prescription cough medicine; ? ? a sedative like Valium--diazepam, alprazolam, lorazepam, Xanax, Klonopin, Versed, and others; ? ? drugs that make you sleepy or slow your breathing--a sleeping pill, muscle relaxer, medicine to treat mood disorders or mental illness; or ? ? drugs that affect serotonin levels in your body--a stimulant, or medicine for depression, Parkinson's disease, migraine headaches, serious infections, or nausea and vomiting. This list is not complete and many other drugs may affect oxycodone. This includes prescription and traj-gsl-fscgsis medicines, vitamins, and herbal products. Not all possible drug interactions are listed here. Where can I get more information? Your pharmacist can provide more information about oxycodone. Remember, keep this and all other medicines out of the reach of children, never share your medicines with others, and use this medication only for the indication prescribed. Every effort has been made to ensure that the information provided by [employer]') is accurate, up-to-date, and complete, but no guarantee is made to that effect. Drug information contained herein may be time sensitive. [employer] information has been compiled for use by healthcare practitioners and consumers in the [place] and therefore [employer] does not warrant that uses outside of the [place] are appropriate, unless specifically indicated otherwise. [employer]s drug information does not endorse drugs, diagnose patients or recommend therapy. [employer] drug information is an informational resource designed to assist licensed healthcare practitioners in caring for their patients and/or to serve consumers viewing this service as a supplement to, and not a substitute for, the expertise, skill, knowledge and judgment of healthcare practitioners. The absence of a warning for a given drug or drug combination in no way should be construed to indicate that the drug or drug combination is safe, effective or appropriate for any given patient. [facility] does not assume any responsibility for any aspect of healthcare administered with the aid of information [facility] provides. The information contained herein is not intended to cover all possible uses, directions, precautions, warnings, drug interactions, allergic reactions, or adverse effects. If you have questions about the drugs you are taking, check with your doctor, nurse or pharmacist. Copyright 4936-[address] [employer] [employer]. Version: 16.. Revision Date: 04/19/2023. Accessing??[facility]??Express??Patient??Portal Access medications, test results, radiology reports, and more through [employer] secure patient portal. Please be patient if waiting on lab results, as these can take several days to process. [employer] online at??[email or web address]??Use your community medical record number (CMRN) located below to verify your identity on the Self-Enrollment form.We also offer the ability for you to securely connect other health management apps to your health record. See the [facility] Connection link on the website above for more details. Watch [facility] Patient Education Videos and Access Resources anytime online! Visit [email or web address]. Extracted from: Title:Clinical Document Author:Trino FRANKS, Brigette Soriano Date:07/09/23 Patient seen and examined th is morning Sitting up in bed, minimal pain Working with therapies, tolerating diet Ready to go home, in agreement VSS AF Extremities: DP pulse noted Prevena dressings removed, wounds intact Discharge home Home Health Care consultation Follow-up in my office next week Extracted from: Title:GMS SOAP Note Author:Emy Robb NP Date:07/08/23 1.??Diabetes mellitus with h yperglycemia(Type 2 diabetes mellitus with hyperglycemia: E11.65) - While inpatient - Increase Lantus to 28 units QAM +?? Humalog to 1:6 tidwm + continue MDCS ACHS with ACHS BG monitoring - For discharge - Can resume NovoLog 6 units tidwm + Lantus??10 units qHS & 20 units qAM ?? HgbA1c: 6.2 % (06/03/23) Patient educated he can take Lantus 30 units once daily in the AM instead of splitting his Lantus dose between morning and night. - Med rec updated; possible d/c tomorrow Will continue to follow and modify regimen as needed? 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, Disp Location: [facility] Extracted from: Title:Jessee Author:Bonita Krishnan Date: 1.??Diabetes mellitus with h yperglycemia(Type 2 diabetes mellitus with hyperglycemia: E11.65) 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 Addendum by Yosef Jameson MD on July 08, 2023 12:10:18 CDT Agree with above Patient seen and examined Continue current care and therapies Hopefully home tomorrrow Extracted from: Title:GMS SOAP Note Author:Emy Robb NP Date:07/07/23 1.??Diabetes mellitus with h yperglycemia(Type 2 diabetes mellitus with hyperglycemia: E11.65) - having some post meal elevations - Increase Humalog slightly to 1:8 tidwm - Continue Humalog MDCS ACHS + Lantus 24 units QAM ?? Will continue to follow and modify regimen as needed? 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, right leg: I70.221) Orders: insulin lispro (Humalog), 1 Unit per 8g carbs consumed, INJ, SubQ, TIDWM (three times a day with meals), Start Date: 07/05/23 17:05:00 CDT, Duration: 90 Days, Stop date 10/03/23 11:35:00 SLEEVE WHEEL MAKER, Routine, Disp Location: [facility] Extracted from: Title:Clinical Document Author:Trino FRANKS, Brigette Soriano Date:07/07/23 Patient seen and examined th is morning Sitting up in bed, adequate pain control Did get out of bed with therapy yesterday Would like a nicotine patch VSS AF Extremities; DP pulse noted Wounds with Prevena dressings H/H has improved to 10.3/ and creatinine has returned to normal POD #3 from redo bypass grafting Continue therapies, Rehabilitation consult Stop fluids, remove Meléndez catheter Extracted from: Title:GMS SOAP Note Author:Emy Robb NP Date:07/06/23 1.??Diabetes mellitus with h yperglycemia(Type 2 diabetes mellitus with hyperglycemia: E11.65) - Increase Lantus to 24 units QAM - Increase Humalog to 1:10 tidwm - Continue MDCS ACHS with ACHS BG monitoring Will continue to follow and modify regimen as needed? 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, right leg: I70.221) Orders: insulin glargine, 24 Units = 0.24 mL, NADEEM, SubQ, QAM, Start Date: 07/05/23 10:00:00 CDT, Duration: 90 Days, Stop date 10/02/23 10:00:00 SLEEVE WHEEL MAKER, Routine, Disp Location: [facility] insulin lispro (Humalog), 1 Unit per 10g carbs consumed, INJ, SubQ, TIDWM (three times a day with meals), Start Date: 07/05/23 17:05:00 CDT, Duration: 90 Days, Stop date 10/03/23 11:35:00 SLEEVE WHEEL MAKER, Routine, Disp Location: [facility] Extracted from: Title:Vascular Author:Bonita Krishnan Date: 1.??Diabetes mellitus with h yperglycemia(Type 2 diabetes mellitus with hyperglycemia: E11.65) 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 Orders: Sodium Chloride 0.9% intravenous solution 1,000 mL, Route: IV, Routine, Start Date: 07/06/23 9:23:00 CDT, 90 Days, Stop date 10/04/23 9:22:00 SLEEVE WHEEL MAKER, Rate= 100 ml/hr, hr, Total Vol ml = 1,000, Disp Location: [facility] IV, Populate Charting Weight From Order, GEN DISP, 1.94, m2 CBC-d Addendum by Yosef Jameson MD on July 06, 2023 18:07:14 CDT Agree with above Patient seen and examined Transfuse 2 units pRBCs Recheck labs tomorrow Continue current therapies and care Extracted from: Title:Clinical Document Author:Brigette Jameson MD Date:07/05/23 Patient seen and examined th is morning Sitting up in bed, at bedside Pain controlled, states his rest pain is resolved Has not eaten breakfast yest VSS AF Extremities: DP pulse noted Prevena in place POD #1 from right redo femoral to popliteal bypass Start activity, PT and OT to see Potassium a little high today (5.7) recheck tomorrow and hold replacement Restart Xarelto this evening Future Appointments Appointment Date:07/17/2023 01:40:00 PM Scheduled Provider:[facility] Type:Established Patient Appointment Date:09/24/2023 02:20:00 PM Scheduled Provider:Du Moreno MD [facility] Type:Procedure 10 Appointment Date:02/27/2024 10:15:00 AM Scheduled Provider:Bree Perkins MD Location:[facility] Appointment Type:Established Patient Future Scheduled Tests Radiology* US VL Duplex Arterial LE Left 11/19/22 Referral* Referral Miscellaneous External 05/03/23 Immunizations Given and Recorded Vaccine Date Status Refusal Reason influenza virus vaccine 1 06/20/23 Given influenza virus vaccine 2 07/10/19 Recorded influenza virus vaccine 07/19/16 Given influenza virus vaccine 06/27/12 Given influenza virus vaccine 07/04/10 Given tetanus-diphth toxoids (Td) adult/adol 05/17/22 Gi jose tetanus-diphth toxoids (Td) adult/adol 01/11/15 Gi jose tetanus-diphth toxoids (Td) adult/adol 06/02/03 Gi jose COVID-19 SARS-CoV-2 mRNA-1273 Moderna 3 08/15/21 R ecorded COVID-19 SARS-CoV-2 mRNA Pfizer (adult) 12/16/20 R ecorded COVID-19 SARS-CoV-2 mRNA Pfizer (adult) 11/18/20 R ecorded Prevnar 13 pneumococcal 13-valent 03/03/18 Recorde d Pneumovax 23 pneumococcal 23-valent 09/14/11 Given Pneumovax 23 pneumococcal 23-valent 06/02/03 Given 1Early/Late Reason: Early/Late Reason: Med Not Available 2Location History: [facility] 3Location History: [facility] [place],PATEL Medications B-D PEN NDL OZZY [id number]() GRN See Instructions, USE WITH LANTUS AND NOVOLOG., # 100 Unknown Unit, Refill(s) 5, Pharmacy: [facility], Powered by [facility], [id number], Instructions Replace Required Details, USE WITH LANTUS AND NOVOLOG. Start Date: 02/06/18 Status: Ordered Centrum Ultra Men's oral tablet By mouth, Daily, Refill(s) 0 Start Date: 02/20/23 Status: Ordered cetirizine 10 mg oral tablet 10 mg = 1 tab, By mouth, Daily, # 90 tab, Refill(s) 2, Pharmacy: [facility], [id number], 1 tab By mouth Daily, 75, 06/20/23 12:48:00 CDT, kg, Weight (kg) (Clinical) Start Date: 06/24/23 Status: Ordered DULoxetine 20 mg oral delayed release capsule = 1 cap, By mouth, Daily, # 90 cap, Refill(s) 3, Pharmacy: [facility], [id number], 1 cap By mouth Daily, 75, 06/20/23 12:48:00 CDT, kg, Weight (kg) (Clinical) Start Date: 06/24/23 Status: Ordered Enbrel 25 mg subcutaneous kit 25 mg = 1 EA, SubQ, QW (once a week), # 12 EA, Refill(s) 0 Start Date: 02/22/23 Status: Ordered ferrous sulfate By mouth, Daily, Refill(s) 0 Start Date: 05/29/23 Status: Ordered folic acid 1 mg oral tablet 1 mg = 1 tab, By mouth, Daily, # 90 tab, Refill(s) 2, Pharmacy: [facility], [id number], TAB, 1 tab By mouth Daily, 69.09, 02/22/23 10:40:00 CDT, kg, Weight (kg) (Clinical) Start Date: 03/22/23 Status: Ordered FREESTYLE SUNNY 2 SENSOR FREESTYLE SUNNY 2 SENSOR, See Instructions, USE DIRECTED., # 1 EA, Refills(s) 5, Route to Pharmacy Electronically, Pharmacy: [id number], USE DIRECTED., 78.64, 05/17/22 9:13:00 CDT, kg, Weight Start Date: 10/01/22 Status: Ordered Freestyle Sunny monitor/sensors Freestyle Sunny monitor/sensors, See Instructions, E 11.9 Insulin dependent diabetes, # 1 EA, Refills(s) 0, Route to Pharmacy Electronically, [facility]: [facility][id number], E 11.9; Insulin dependent diabetes, Supply, 78.64, 05/17/22 9:13:... Start Date: 08/27/22 Status: Ordered gabapentin 100 mg oral capsule 200 mg = 2 cap, By mouth, TID, # 540 cap, Refill(s) 6, Pharmacy: [facility], [id number], CAP, 2 cap By mouth TID, 75, 06/03/23 10:32:00 CDT, kg, Weight (kg) (Clinical) Start Date: 06/03/23 Status: Ordered hydrALAZINE 50 mg oral tablet 50 mg = 1 tab, By mouth, BID Start Date: 04/18/21 Status: Ordered LanTUS 100 units/mL subcutaneous solution See Instructions, Take 40 units daily., # 15 mL, Refill(s) 11, Diabetes, other, Instructions Replace Required Details, NADEEM Start Date: 06/03/23 Status: Ordered Lasix 40 mg oral tablet 40 mg = 1 tab, By mouth, Daily, # 30 tab, Refill(s) 0, TAB Start Date: 02/07/23 Status: Ordered lisinopril 40 mg oral tablet 40 mg = 1 tab, By mouth, Daily, # 30 tab, Refill(s) 4, Pharmacy: [facility], [id number], TAB, 1 tab By mouth Daily, 69.09, 02/22/23 10:40:00 CDT, kg, Weight (kg) (Clinical) Start Date: 03/08/23 Status: Ordered Medical scooter Medical scooter, See Instructions, LLE pain; Post-operative status; Being scheduled for BKA, # 1 EA, Refills(s) 0, Print Requisition, Supply Start Date: 01/11/23 Status: Ordered methotrexate 2.5 mg oral tablet TAKE 8 TABLETS BY MOUTH ONCE A WEEK, Mondays Start Date: 02/22/23 Status: Ordered nitroglycerin 0.4 mg sublingual tablet 0.4 mg = 1 tab, SL, Q5Min, PRN for chest pain, # 100 tab, Refill(s) 0 Start Date: 05/29/23 Status: Ordered NovoLOG FlexPen 100 units/mL injectable solution See Instructions, ADMINISTER 6 UNITS UNDER THE SKIN BEFORE MEALS rotate injection sites, # 15 mL, Refill(s) 6, Instructions Replace Required Details Start Date: 02/07/23 Status: Ordered oxyCODONE 5 mg oral tablet 10 mg, = 2 tab, By mouth, Q6H, PRN Pain Severe (7-10), 50 tab, 0, 0, Substitution Permitted, [facility], 68, Height (inches) (Clinical), 07/09/23 0:59:00 CDT, in, 79.7, Weight (kg) (Clinical), 07/09/23 1:46:00 CDT, kg Start Date: 07/09/23 Status: Ordered pantoprazole 40 mg oral delayed release tablet 40 mg = 1 tab, By mouth, at bedtime, # 30 tab, Refill(s) 0 Start Date: 05/29/23 Status: Ordered Plavix 75 mg oral tablet 75 mg = 1 tab, By mouth, Daily, # 30 tab, Refill(s) 0 Start Date: 07/02/23 Status: Ordered potassium chloride 10 mEq oral capsule, extended release 20 mEq = 2 cap, By mouth, BID, with lasix Start Date: 10/12/22 Status: Ordered rivaroxaban 20 mg oral tablet 20 mg = 1 tab, By mouth, QPM (every evening), # 30 tab, Refill(s) 0 Start Date: 07/09/23 Status: Ordered senna (sennosides) 8.6 mg oral tablet 17.2 mg = 2 tab, By mouth, at bedtime, PRN for constipation, # 100 tab, Refill(s) 0 Start Date: 02/14/23 Status: Ordered simvastatin 20 mg oral tablet = 1 tab, By mouth, at bedtime, # 90 tab, Refill(s) 0, Pharmacy: [facility], [id number], TAKE 1 TABLET BY MOUTH AT BEDTIME, 75, 06/03/23 10:32:00 CDT, kg, Weight (kg) (Clinical) Start Date: 06/10/23 Status: Ordered sotalol 120 mg oral tablet 120 mg = 1 tab, By mouth, BID, # 60 tab, Refill(s) 3, other, TAB Start Date: 06/03/23 Status: Ordered sotalol 120 mg oral tablet 120 mg = 1 tab, By mouth, BID, # 60 tab, Refill(s) 6, Pharmacy: [facility], [id number], 1 tab By mouth BID, 75, 06/20/23 12:48:00 CDT, kg, Weight (kg) (Clinical) Start Date: 06/24/23 Status: Ordered sucralfate 1 g oral tablet = 1 tab, By mouth, QID, # 360 tab, Refill(s) 0, [id number], [id number], TAKE 1 TABLET BY MOUTH FOUR TIMES DAILY, 78.64, 05/17/22 9:13:00 CDT, kg, Weight Start Date: 06/01/22 Status: Ordered tamsulosin 0.4 mg oral capsule 0.4 mg = 1 cap, By mouth, Daily, # 90 cap, Refill(s) 3, Pharmacy: [facility], [id number], CAP, 1 cap By mouth Daily, 69.09, 04/02/23 13:57:00 CDT, kg, Weight (kg) (Clinical) Start Date: 05/28/23 Status: Ordered Problem List Condition Confirmation Course Effective Dates Status Health Status Informant Abdominal pain Confirmed Active Abrasion of knee, left Confirmed Active Non-ST elevation [place] (NSTEMI) Confirmed Active Allergic dermatitis Confirmed Active Anemia Confirmed Active Atherosclerosis of superior mesenteric artery Confirmed Active Atherosclerosis of ruby artery of left lower extremity with intermittent claudication Confirmed Active Peripheral vascular disease Confirmed Active A-fib Confirmed Active Back pain Confirmed Active BPH with urinary obstruction Confirmed Active Carotid stenosis, bilateral Confirmed Active Chronic ulcer of left leg with fat layer exposed Confirmed Active CAD (coronary artery disease) Confirmed Active Cough Confirmed Active Diabetes mellitus Confirmed Active Diabetic neuropathy Confirmed Active Diabetic nephropathy Confirmed Active Edema Confirmed Active Arm edema Confirmed Active Epigastric pain Confirmed Active Rash Confirmed Active S/P AKA (above knee amputation) unilateral Confirmed Active HTN (hypertension) Confirmed Active Hypertriglyceridemia Confirmed Active Infected sebaceous cyst of skin Confirmed Active Arthralgia Confirmed Active Infected wound Confirmed Active Chronic anticoagulation Confirmed Active Bladder cancer Confirmed Active Actinic keratoses Confirmed Active Open wound of leg Confirmed Active Vaccine for streptococcus pneumoniae and influenza Confirmed Active Screening for AAA (abdominal aortic aneurysm) Confirmed Active Sinusitis Confirmed Active Tobacco use Confirmed Active patient Vitamin D deficiency Confirmed Active Procedures Procedure Date Related Diagnosis Body Site Status BYP OTH/THN VEIN FEMORAL-POPLITEAL 07/05/23 Completed ROPRTJ > 1 MO AFTER ORIGINAL OPRATION 07/05/23 Completed Left above-knee amputation. 01/18/23 Completed Left fem-pop bypass 10/11/22 Compl eted CTA of the neck 1 06/07/[address] chest 2 05/08/[address] neck 3 05/08/22 Completed left heart cath with PCI 4 03/27/[address] lumbar spine 5 03/02/21 Complet ed Stent RCA 09/29/20 Completed Femoral endarterectomy 6 05/06/19 Completed NSTEMI, Cath, Stent 2018 Com pleted Stent placed RCA 8 10/26/17 Comple binu Arterial bypass of lower ext remity artery 08/15/17 Completed Carotid endarterectomy 08/15/17 Co mpleted EGD 9 12/24/16 Completed Angiogram LE with stenting o f Left Superior Mesenteric Artery 12/10/16 Compl eted Bypass surgery 08/2014 Complet ed bilateral stents 2013 Compl eted back surgery 08/2001 Completed appendectomy 1955 Completed 1Right internal carotid stenosis 51%, left internal carotid stenosis 60%, mild stenosis of the left common carotid artery origin. Right vertebral artery is dominant and patent. Severe stenosis of the left vertebral artery origin with segmental flow in the mid and distal left vertebral artery. Low-attenuation change left occipital lobe likely due to chronic infarct but only partially visualized. Can be further evaluated with head CT or MRI. Mild mucosal thickening left maxillary sinus. Moderate spondylitic changes cervical spine. 2Moderate chronic emphysematous changes. No acute pulmonary infiltrates. No suspicious pulmonary parenchymal opacities. Prominent right hilar and subcarinal lymph nodes. Right hilar lymph node measuring 11 mm unchanged since 2020. These are nonspecific but may be reactive. Bronchovascular thickeningalong the right hilum. Some of these are calcified. Recommend six-month follow-up contrast-enhancedchest CT. Small esophageal hiatal hernia. Left renal cyst measuring 4.2 cm partially visualized. 3No evidence of supraglottic or glottic mass. Subglottic airway is patent. Normal posterior nasopharynx. Normal parapharyngeal fat. No cervical lymphadenopathy. Dense cavernous carotid ICA calcifications recommend further eval with CT a neck. Severe left and moderate right internal carotid artery geno rowing. This can be further evaluated with CT a. Normal salivary glands. 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 4[facility] Dr. Mays 5Moderate to severe bilateral lateral recess subarticular recess and foraminal stenosis at L4-L5 with mild central stenosis. Stenosis primarily due to osteophyte disease but there is also disc disease. Encroachment upon the L4-L5 nerve roots. Most significant encroachment on the right due to osteophyte contacting L5 nerve root. Significant bony foraminal stenosis involving the subarticular recesses and foramina bilaterally with encroachment upon the L5 and S1 nerve roots in the central thecal sac Right foraminal disc protrusion encroaching upon the right L3 and also L4 nerve root. Mild left foraminal stenosis at L3-L4 with mild central stenosis 6Femoral endarterectomy, abdominal aortic stent, iliac stent graft, femoral stent graft, explanted FSA stent, intravenous ultrasound of the right iliac/aorta at [facility]. 7Stent x 2 RCA, angioplasty of prior stent 8[facility] [place] Stent 3mmx38 mm 9Dr. Ben 10Right leg12 11Legs 12Disk repair Results Laboratory List Name Date CBC-d 07/09/23 zCBC Automated Diff 07/09/23 BMP 07/07/23 CBC-d 07/07/23 zCBC Automated Diff 07/07/23 H&H 07/06/23 BMP 07/06/23 CBC-d 07/06/23 zCBC Automated Diff 07/06/23 BMP 07/05/23 Magnesium Serum (Mg Serum) 07/05/23 PT/INR 07/04/23 PTT 07/04/23 TSABS auto 07/04/23 TSType 07/04/23 Most recent to oldest [Reference Range]: 1 2 3 Type and RH Interp O Positive *Unknown* (07/04/23 2:14 PM) Bedside Glucose 254 mg/dL 1 (07/09/23 11:34 AM) 187 mg/dL 2 (07/09/23 8:19 AM) 158 mg/dL 3 (07/09/23 2:21 AM) iBase Excess -3 mEq/L 4 (07/04/23 6:43 PM) iBicarbonate 23.4 mEq/L 5 (07/04/23 6:43 PM) iGlucose 129 mg/dL 6 (07/04/23 6:43 PM) iHematocrit 29.0 % 7 (07/04/23 6:43 PM) iHemoglobin 9.9 g/dL 8 (07/04/23 6:43 PM) iO2 Saturation 100 % 9 (07/04/23 6:43 PM) iPCO2 44 mmHg 10 (07/04/23 6:43 PM) ipH 7.33 11 (07/04/23 6:43 PM) iPO2 351 mmHg 12 (07/04/23 6:43 PM) iPotassium 4.4 mEq/L 13 (07/04/23 6:43 PM) iSodium 140 mEq/L 14 (07/04/23 6:43 PM) Antibody Screen Interp a Negative (07/04/23 2:14 PM) Anion Gap [2-15 mEq/L] 7 mEq/L (07/07/23 5:32 AM) 6 mEq/L (07/06/23 1:54 AM) 3 mEq/L (07/05/23 3:31 AM) eGFR CKD-EPI [>=61 mL/min/1.73 m2] 69 mL/min/1.73 m2 (07/07/23 5:32 AM) 53 mL/min/1.73 m2 *LOW* (07/06/23 1:54 AM) 60 mL/min/1.73 m2 *LOW* (07/05/23 3:31 AM) BBID # [id number] (07/06/23 1:42 PM) [id number] (07/06/23 10:43 AM) Glucose, Serum/Plasma [70-10 0 mg/dL] 141 mg/dL *HI* (07/07/23 5:32 AM) 196 mg/dL *HI* (07/06/23 1:54 AM) 204 mg/dL *HI* (07/05/23 3:31 AM) WBC [4.8-10.8 Thous/mm3] 21.0 Thous/mm3 *HI* (07/09/23 8:46 AM) 11.8 Thous/mm3 *HI* (07/07/23 5:32 AM) 11.3 Thous/mm3 *HI* (07/06/23 1:54 AM) Hct [42.0-52.0 %] 34.0 % *LOW* (07/09/23 8:46 AM) 30.9 % *LOW* (07/07/23 5:32 AM) 31.5 % *LOW* (07/06/23 7:50 PM) Hgb [14.0-18.0 g/dL] 11.4 g/dL *LOW* (07/09/23 8:46 AM) 10.3 g/dL *LOW* (07/07/23 5:32 AM) 10.2 g/dL *LOW* (07/06/23 7:50 PM) RBC [4.60-6.20 Million/mm3] 3.75 Million /mm3 *LOW* (07/09/23 8:46 AM) 3.38 Million/mm3 *LOW* (07/07/23 5:32 AM) 2.45 Million/mm3 *LOW* (07/06/23 1:54 AM) MCV [80.0-100.0 fl] 90.7 fl (07/09/23 8:46 AM) 91.4 fl (07/07/23 5:32 AM) 93.1 fl (07/06/23 1:54 AM) MCH [26.0-34.0 pg] 30.4 pg (07/09/23 8:46 AM) 30.5 pg (07/07/23 5:32 AM) 29.8 pg (07/06/23 1:54 AM) MCHC [31.0-36.5 g/dL] 33.5 g/dL (07/09/23 8:46 AM) 33.3 g/dL (07/07/23 5:32 AM) 32.0 g/dL (07/06/23 1:54 AM) RDW [10.4-14.4 %] 17.2 % *HI* (07/09/23 8:46 AM) 17.3 % *HI* (07/07/23 5:32 AM) 17.5 % *HI* (07/06/23 1:54 AM) Platelets [130-440 Thous/mm3] 291 Thous/ mm3 (07/09/23 8:46 AM) 256 Thous/mm3 (07/07/23 5:32 AM) 265 Thous/mm3 (07/06/23 1:54 AM) MPV [9.4-12.4 fl] 9.5 fl (07/09/23 8:46 AM) 9.4 fl (07/07/23 5:32 AM) 9.4 fl (07/06/23 1:54 AM) AutoNeutrophil [43.0-78.0 %] 74.0 % (07/09/23 8:46 AM) 58.5 % (07/07/23 5:32 AM) 62.2 % (07/06/23 1:54 AM) AutoLymphs [20.0-40.0 %] 12.3 % *LOW* (07/09/23 8:46 AM) 23.9 % (07/07/23 5:32 AM) 27.4 % (07/06/23 1:54 AM) AutoMono [2.0-10.0 %] 8.2 % (07/09/23 8:46 AM) 12.4 % *HI* (07/07/23 5:32 AM) 7.5 % (07/06/23 1:54 AM) AutoEo [0.0-7.0 %] 4.5 % (07/09/23 8:46 AM) 3.8 % (07/07/23 5:32 AM) 2.0 % (07/06/23 1:54 AM) Sodium [136-145 mEq/L] 141 mEq/L (07/07/23 5:32 AM) 137 mEq/L (07/06/23 1:54 AM) 134 mEq/L *LOW* (07/05/23 3:31 AM) Potassium [3.5-5.1 mEq/L] 4.1 mEq/L (07/07/23 5:32 AM) 4.3 mEq/L (07/06/23 1:54 AM) 5.7 mEq/L *HI* (07/05/23 3:31 AM) Chloride [98-107 mEq/L] 111 mEq/L *HI* (07/07/23 5:32 AM) 109 mEq/L *HI* (07/06/23 1:54 AM) 110 mEq/L *HI* (07/05/23 3:31 AM) AbsNeut [2.0-8.0 Thous/mm3] 15.5 Thous/m m3 *HI* (07/09/23 8:46 AM) 6.9 Thous/mm3 (07/07/23 5:32 AM) 7.0 Thous/mm3 (07/06/23 1:54 AM) CO2 [21-32 mEq/L] 23 mEq/L (07/07/23 5:32 AM) 22 mEq/L (07/06/23 1:54 AM) 21 mEq/L (07/05/23 3:31 AM) BUN [7-18 mg/dL] 29 mg/dL *HI* (07/07/23 5:32 AM) 34 mg/dL *HI* (07/06/23 1:54 AM) 27 mg/dL *HI* (07/05/23 3:31 AM) Creatinine [0.73-1.18 mg/dL] 1.10 mg/dL (07/07/23 5:32 AM) 1.38 mg/dL *HI* (07/06/23 1:54 AM) 1.23 mg/dL *HI* (07/05/23 3:31 AM) AbsLymph [1.0-4.0 Thous/mm3] 2.6 Thous/m m3 (07/09/23 8:46 AM) 2.8 Thous/mm3 (07/07/23 5:32 AM) 3.1 Thous/mm3 (07/06/23 1:54 AM) AbsMono [0.1-1.0 Thous/mm3] 1.7 Thous/mm 3 *HI* (07/09/23 8:46 AM) 1.5 Thous/mm3 *HI* (07/07/23 5:32 AM) 0.8 Thous/mm3 (07/06/23 1:54 AM) AbsEo [0.0-0.5 Thous/mm3] 0.9 Thous/mm3 *HI* (07/09/23 8:46 AM) 0.4 Thous/mm3 (07/07/23 5:32 AM) 0.2 Thous/mm3 (07/06/23 1:54 AM) AbsBaso [0.0-0.2 Thous/mm3] 0.1 Thous/mm 3 (07/09/23 8:46 AM) 0.1 Thous/mm3 (07/07/23 5:32 AM) 0.1 Thous/mm3 (07/06/23 1:54 AM) AutoBaso [0.0-2.5 %] 0.4 % (07/09/23 8:46 AM) 0.6 % (07/07/23 5:32 AM) 0.5 % (07/06/23 1:54 AM) Calcium [8.3-10.6 mg/dL] 7.9 mg/dL *LOW* (07/07/23 5:32 AM) 7.3 mg/dL *LOW* (07/06/23 1:54 AM) 7.2 mg/dL *LOW* (07/05/23 3:31 AM) Magnesium [1.8-2.4 mg/dL] 1.9 mg/dL (07/05/23 3:31 AM) PTT [22-33 sec] 26 sec (07/04/23 2:14 PM) PT [9.0-13.5 sec] 10.8 sec (07/04/23 2:14 PM) INR [0.80-1.30] 1.01 (07/04/23 2:14 PM) Imm. Grans % [0-5 %] <5 % (07/09/23 8:46 AM) <5 % (07/07/23 5:32 AM) <5 % (07/06/23 1:54 AM) Imm. Grans # [0.0-0.5 Thous/mm3] <0.5 Thous/mm3 (07/09/23 8:46 AM) <0.5 Thous/mm3 (07/07/23 5:32 AM) <0.5 Thous/mm3 (07/06/23 1:54 AM) ANC-AbsNeutCount 15.5 Thous/mm3 *NA* (07/09/23 8:46 AM) 6.9 Thous/mm3 *NA* (07/07/23 5:32 AM) 7.0 Thous/mm3 *NA* (07/06/23 1:54 AM) 1Result Comment: Notify RN/ Performed at:[address], [address] Reference Ranges: Age 0 - 24 hours: 45 - 115 mg/dL Age 24 hours - 30 days: 55 - 115 mg/dL Age > 30 days: 70 - 100 mg/dL Critical Results Requiring Immediate Notification: Age <72 Hours: <40 or >350 mg/dL Age >72 Hours: <50 or >400 mg/dL 2Result Comment: Notifkim JOHNSTON/ Performed at:[address], [address] Reference Ranges: Age 0 - 24 hours: 45 - 115 mg/dL Age 24 hours - 30 days: 55 - 115 mg/dL Age > 30 days: 70 - 100 mg/dL Critical Results Requiring Immediate Notification: Age <72 Hours: <40 or >350 mg/dL Age >72 Hours: <50 or >400 mg/dL 3Result Comment: Notifkim JOHNSTON/ Performed at:[address], [address] Reference Ranges: Age 0 - 24 hours: 45 - 115 mg/dL Age 24 hours - 30 days: 55 - 115 mg/dL Age > 30 days: 70 - 100 mg/dL Critical Results Requiring Immediate Notification: Age <72 Hours: <40 or >350 mg/dL Age >72 Hours: <50 or >400 mg/dL 4Result Comment: Performed at:[address], [address] Arterial Blood Gas Reference Ranges: -2 ??? 3+ mEq/L Cord Blood Gas Reference Ranges: -0.9 to -6.3 mEq/L The above reference ranges are suggested as a guide for evaluating acid-base status. All umbilical cord blood values should be evaluated in relation to the specific clinical findings and situation for a given patient. 5Result Comment: Performed at:[place] [address] [place], [address] Arterial Blood Gas Reference Ranges: 22 ??? 26 mEq/L Cord Blood Gas Reference Ranges: 21.9 ??? 26.3 mEq/L The above reference ranges are suggested as a guide for evaluating acid-base status. All umbilical cord blood values should be evaluated in relation to the specific clinical findings and situation for a given patient. 6Result Comment: Performed at:[place] [address] [place], [address] Reference Ranges: Age 0 - 24 hours: 45 - 115 mg/dL Age 24 hours - 30 days: 55 - 115 mg/dL Age > 30 days: 70 - 100 mg/dL Critical Results Requiring Immediate Notification: Age <72 Hours: <40 or >350 mg/dL Age >72 Hours: <50 or >400 mg/dL 7Result Comment: Performed at:[place] [address] [place], [address] Reference Ranges: 38 - 51 % 8Result Comment: Performed at:[place] [address] [address] [address] Reference Ranges: 12 - 17 g/dL 9Result Comment: Performed at:[place] [address] [address] [facility] [address] iO2 Saturation Reference Range: 95 - 98 % 10Result Comment: Performed at:[place] [address] [address] [facility] [address] Adult/Ped: 32 - 45 mmHg NICU/L and D: 40 - 60 mmHg The above reference ranges are suggested as a guide for evaluating acid-base status. All umbilical cord blood values should be evaluated in relation to the specific clinical findings and situation for a given patient. 11Result Comment: Performed at:[place] [address] [address] [facility] [address] Adult/Ped: 7.36 - 7.46 NICU/L and D: 7.25 - 7.45 The above reference ranges are suggested as a guide for evaluating acid-base status. All umbilical cord blood values should be evaluated in relation to the specific clinical findings and situation for a given patient. 12Result Comment: Performed at:[facility], [facility] [place], [address] Adult/Ped: 75 - 95 mmHg NICU/L and D: 40 - 80 mmHg The above reference ranges are suggested as a guide for evaluating acid-base status. All umbilical cord blood values should be evaluated in relation to the specific clinical findings and situation for a given patient. 13Result Comment: Performed at:[facility], [facility] [place], [address] Reference Ranges: 3.5 - 5.1 mEq/L 14Result Comment: Performed at:[facility], [facility] [place], [address] Reference Ranges: 136 - 145 mEq/L Vital Signs Most recent to oldest [Reference Range]: 1 2 3 Blood Pressure 132/57mmHg (07/09/23 11:34 AM) 137/77mmHg (07/09/23 10:41 AM) 155/91mmHg (07/09/23 7:16 AM) Height (inches) (Clinical) 68 in (07/09/23 2:00 PM) 68 in (07/09/23 2:00 AM) 68 in (07/08/23 2:00 PM) Weight (kg) (Clinical) 79.7 kg (07/09/23 1:46 AM) 79.4 kg (07/08/23 2:17 AM) 79.4 kg (07/07/23 4:20 AM) BMI (Clinical) 25.1 kg/m2 (07/04/23 10:44 PM) 25.1 kg/m2 (07/04/23 1:50 PM) Scale Type Bed (07/04/23 1:50 PM) Social History Social History Type Response Smoking Status Current every day sm oker; Smokeless tobacco use: Never; Has the patient smoked in the last 365 days, even once? Yes; Type: Cigarettes; Tobacco use per day: 1 Pack; Number of years: 62; Started at age: 16; entered on: 06/11/23 Sex Male Implantable Device List Procedure Provider Procedure Date Device Type Site Bypass Graft Femoral to Popliteal Artery Unknown 07/04/23 Unknown Fermoral Artery , Right Device Identifier Serial Number Lot or Batch Number Manufacturing Date Expiration Date Distinct Identification Code MRI Safety Implantable Status Assigning Authority Unknown [id number] Unknown Unknown 04/06/28 Unknown Unknown Active Unknown Procedure Provider Procedure Date Device Type Site Bypass Graft Femoral to Popliteal Artery Unknown 10/11/22 Unknown Popliteal Arter y, Left Device Identifier Serial Number Lot or Batch Number Manufacturing Date Expiration Date Distinct Identification Code MRI Safety Implantable Status Assigning Authority Unknown [id number] Unknown Unknown 01/08/26 Unknown Unknown Active Unknown Hospital Discharge Instructions Patient Education 07/09/2023 09:26:10 Pain Medicine Instructions, Ijjr-ok-Fiqf Pain Medicine Instructions You may need pain medicine after an injury or illness. Two common types of pain medicine are: ??? Non-opioid pain medicine. This includes NSAIDs. ??? Opioid pain medicine. These may be called opioids. Pain medicine may not make all of your pain go away. It should make you comfortable enough to move,breathe, and do normal activities. How can pain medicines affect me? Pain medicines can cause side effects such as: ??? Vomiting or feeling like you may vomit. ??? Belly pain. Opioids can cause other side effects, such as: ??? Trouble pooping (constipation). ??? Feeling very sleepy. ??? Confusion. ??? Trouble breathing. ??? Addiction to opioids. This means that you will take the medicine even though it hurts your health. Taking opioids for longer than 3 days raises your risk of these side effects. Taking opioids for a long time can affect how well you can do daily tasks. It also puts you at riskfor: ??? Car crashes. ??? Depression. ??? Suicide. ??? Heart attack. If you do not take pain medicines correctly, you may be at risk for: ??? Liver problems. ??? Kidney problems. ??? Taking too much of the medicine (overdose). This can lead to . What actions can I take to lower my risk of problems? Know your treatment plan Talk about your treatment plan with your doctor. Both you and your doctor should agree on how you should be treated. ??? Talk about the goals of your treatment, including: ??? How much pain you might expect to have. ??? How you will manage the pain. ??? Ask your doctor if you can see other doctors who can treat your pain without using medicine. This can include physical therapy and counseling. ??? Talk about the risks and benefits of taking these medicines for your condition. ??? Tell your doctor about the amount of medicines you take and about any use of drugs or alcohol. ??? Get your pain medicine prescriptions from only one doctor. ??? Keep all follow-up visits. Take your medicine as told ??? Take pain medicine exactly as told by your doctor. Take it only when you need it. ??? If your pain is not too bad, you may take less medicine if your doctor allows. ??? If you have no pain, do not take the medicine unless your doctor tells you to take it. ??? If your pain is very bad, do not take more medicine than your doctor tells you to take. Call your doctor to know what to do. ??? If your pain medicine has acetaminophen in it, do not take any other acetaminophen while you are taking this medicine. Too much can damage the liver. ??? Write down the times when you take your pain medicine. Look at the times before you take your next dose. ??? Take other clvl-gwg-zeyaxow or prescription medicines only as told by your doctor. Avoid certain activities While you are taking prescription pain medicine, and for 8 hours after your last dose: ??? Do not drive. ??? Do not use machinery. ??? Do not use power tools. ??? Do not sign legal documents. ??? Do not drink alcohol. ??? Do not take sleeping pills. ??? Do not take care of children by yourself. ??? Do not do any activities that involve climbing or being in high places. ??? Do not go to a serrano, river, ocean, spa, or swimming pool unless an adult is nearby who can monitor and help you. Keep pets and people safe ??? Store your medicine as told by your doctor. Keep it where children and pets cannot reach it. ??? Do not share your pain medicine with anyone. ??? Do not save unused pills. If you have unused pills, you can: ??? Bring them to a take-back program. ??? Bring them to a pharmacy that takes back unused pills. ??? Throw them in the trash. Check the medicine label or package insert to see if it is safe to throw it out. If it is safe, take the medicine out of the container. Mix it with something that makes it unusable, such as pet waste. Then put the medicine in the trash. ??? Flush them down the toilet only if this is safe to do. To find out: ??? Check the label or package insert of your medicine. ??? Read information given by the Food and Drug Administration website: fda.gov Treat or prevent constipation You may need to take these actions to prevent or treat constipation: ??? Drink enough fluid to keep your pee (urine) pale yellow. ??? Take zxjw-hgg-uplgxxc or prescription medicines. ??? Eat foods that are high in fiber. These include beans, whole grains, and fresh fruits and vegetables. ??? Limit foods that are high in fat and sugar. These include fried or sweet foods. Contact a doctor if: ??? Your medicine is not helping with your pain. ??? You have a rash. ??? You feel sick to your stomach. ??? You throw up. ??? You feel depressed. Get help right away if: ??? You have trouble breathing. This means: ??? Breathing that is slower than normal. ??? Breathing that is more shallow than normal. ??? You are confused. ??? You are sleeping a lot, or you have trouble staying awake. ??? Your skin or lips turn pale or bluish in color. ??? You tongue swells. ??? You have thoughts of harming yourself or harming others. These symptoms may be an emergency. Get help right away. Call your local emergency services ([address] [place] ??? Do not wait to see if the symptoms will go away. ??? Do not drive yourself to the hospital. Get help right away if you feel like you may hurt yourself or others, or have thoughts about takingyour own life. Go to your nearest emergency room or: ??? Call your local emergency services (159 in the [place] ??? Call the National Suicide Prevention Lifeline at or 481 in the [place] This is open24 hours a day. ??? Text the Crisis Text Line at 854265. Summary ??? Pain medicine can help lower your pain. It may also cause side effects. ??? Take your pain medicine exactly as told by your doctor. ??? Talk with your doctor about other ways to manage your pain. ??? Ask what activities you should avoid while taking pain medicine. This information is not intended to replace advice given to you by your health care provider. Make sure you discuss any questions you have with your health care provider. Document Revised: 03/28/2022 Document Reviewed: 01/10/2022 Elsevier Patient Education ?? 2021 [employer]. 07/09/2023 09:26:10 3WT Femoropoplilteal Bypass Discharge 2022 (Custom) Peripheral Vascular Disease Peripheral vascular disease (PVD) is a disease of the blood vessels that carry blood from the heartto the rest of the body. PVD is also called peripheral artery disease (PAD) or poor circulation. PVD affects most of the body. But it affects the legs and feet the most. PVD can lead to acute limb ischemia. This happens when there is a sudden stop of blood flow to an arm or leg. This is a medical emergency. What are the causes? The most common cause of PVD is a buildup of a fatty substance (plaque) inside your arteries. This decreases blood flow. Plaque can break off and block blood in a smaller artery. This can lead to acute limb ischemia. Other common causes of PVD include: ??? Blood clots inside the blood vessels. ??? Injuries to blood vessels. ??? Irritation and swelling of blood vessels. ??? Sudden tightening of the blood vessel (spasms). What increases the risk? A family history of PVD. ??? Medical conditions, including: ??? High cholesterol. ??? Diabetes. ??? High blood pressure. ??? Heart disease. ??? Past problems with blood clots. ??? Past injury, such as martin or a broken bone. ??? Other conditions, such as: ??? Buerger's disease. This is caused by swollen or irritated blood vessels in your hands and feet. ??? Arthritis. ??? defects that affect the arteries in your legs. ??? Kidney disease. ??? Using tobacco or nicotine products. ??? Not getting enough exercise. ??? Being very overweight (obese). ??? Being 50 years old or older. What are the signs or symptoms? Cramps in your butt, legs, and feet. ??? Pain and weakness in your legs when you are active that goes away when you rest. ??? Leg pain when at rest. ??? Leg numbness, tingling, or weakness. ??? Coldness in a leg or foot, especially when compared with the other leg or foot. ??? Skin or hair changes. These can include: ??? Hair loss. ??? Shiny skin. ??? Pale or bluish skin. ??? Thick toenails. ??? Being unable to get or keep an erection. ??? Tiredness (fatigue). ??? Weak pulse or no pulse in the feet. ??? Wounds and sores on the toes, feet, or legs. These take longer to heal. How is this treated? Underlying causes are treated first. Other conditions, like diabetes, high cholesterol, and blood pressure, are also treated. Treatment may include: ??? Lifestyle changes, such as: ??? Quitting smoking. ??? Getting regular exercise. ??? Having a diet low in fat and cholesterol. ??? Not drinking alcohol. ??? Taking medicines, such as: ??? Blood thinners. ??? Medicines to improve blood flow. ??? Medicines to improve your blood cholesterol. ??? Procedures to: ??? Open the arteries and restore blood flow. ??? Insert a small mesh tube (stent) to keep a blocked vessel open. ??? Create a new path for blood to flow to the body (peripheral bypass). ??? Remove tissue from a wound. ??? Remove an affected leg or arm. Follow these instructions at home: Medicines ??? Take zqlu-ltg-vhqlyxp and prescription medicines only as told by your doctor. ??? If you are taking blood thinners: ??? Talk with your doctor before you take any medicines that have aspirin, or NSAIDs, such as ibuprofen. ??? Take medicines exactly as told. Take them at the same time each day. ??? Avoid doing things that could hurt or bruise you. Take action to prevent falls. ??? Wear an alert bracelet or carry a card that shows you are taking blood thinners. Lifestyle ??? Get regular exercise. Ask your doctor about how to stay active. ??? Talk with your doctor about keeping a healthy weight. If needed, ask about losing weight. ??? Eat a diet that is low in fat and cholesterol. If you need help, talk with your doctor. ??? Do not drink alcohol. ??? Do not smoke or use any products that contain nicotine or tobacco. If you need help quitting, ask your doctor. General instructions ??? Take good care of your feet. To do this: ??? Wear shoes that fit well and feel good. ??? Check your feet often for any cuts or sores. ??? Get a flu shot (influenza vaccine) each year. ??? Keep all follow-up visits. Where to find more information ??? Society for Vascular Surgery: vascular.org ??? [place] [employer]: heart.org ??? National Heart, Lung, and Blood [place]: nhlbi.nih.gov Contact a doctor if: ??? You have cramps in your legs when you walk. ??? You have leg pain when you rest. ??? Your leg or foot feels cold. ??? Your skin changes. ??? You cannot get or keep an erection. ??? You have cuts or sores on your legs or feet that do not heal. Get help right away if: ??? You have sudden changes in the color and feeling of your arms or legs, such as: ??? Your arm or leg turns cold, numb, and blue. ??? Your arm or leg becomes red, warm, swollen, painful, or numb. ??? You have any signs of a stroke. BE FAST is an easy way to remember the main warning signs: B - Balance. Dizziness, sudden trouble walking, or loss of balance. E - Eyes. Trouble seeing or a change in how you see. F - Face. Sudden weakness or loss of feeling of the face. The face or eyelid may droop on one side. A - Arms. Weakness or loss of feeling in an arm. This happens all of a sudden and most often on oneside of the body. S - Speech. Sudden trouble speaking, slurred speech, or trouble understanding what people say. T - Time. Time to call emergency services. Write down what time symptoms started. ??? You have other signs of a stroke, such as: ??? A sudden, very bad headache with no known cause. ??? Feeling like you may vomit (nausea). ??? Vomiting. ??? A seizure. ??? You have chest pain or trouble breathing. These symptoms may be an emergency. Get help right away. Call your local emergency services ([address] [facility] [place] ??? Do not wait to see if the symptoms will go away. ??? Do not drive yourself to the hospital. Summary ??? Peripheral vascular disease (PVD) is a disease of the blood vessels. ??? PVD affects the legs and feet the most. ??? Symptoms may include leg pain or leg numbness, tingling, and weakness. ??? Treatment may include lifestyle changes, medicines, and procedures. Document Revised: 03/06/2021 Document Reviewed: 03/06/2021 [employer] Patient Education ?? 2021 [employer]. Femoropopliteal Bypass A femoropopliteal bypass is a surgery to allow blood to go around (bypass) a blocked artery in the leg. The artery may become blocked with plaque, which is a buildup of fat. Arteries carry blood thatbrings oxygen and nutrients to the body. The femoral artery is in the upper part of the leg. It is the main artery that carries blood to the leg. Popliteal arteries are in the back of the knee. Thesearteries take blood to the lower part of the leg. In this procedure, a graft is put in to bypass the blocked artery. The graft can be one of your ownveins that has been taken from another part of your leg, or it can be made of a manufactured material, such as plastic or fabric. Tell a health care provider about: ??? Any allergies you have. ??? All medicines you are taking, including vitamins, herbs, eye drops, creams, and lxyc-yov-ndeuqat medicines. ??? Any problems you or family members have had with anesthetic medicines. ??? Any blood disorders you have. ??? Any surgeries you have had. ??? Any medical conditions you have. ??? Whether you are or may be . What are the risks? Generally, this is a safe procedure. However, problems may occur, including: ??? Bleeding. ??? Blood clots that form in the graft or the leg and block blood flow. ??? Blood clots that form and break loose. These can travel to the lungs or the brain and cause breathing difficulty or a stroke. ??? Failure of the procedure. ??? Infection. ??? Damage to other structures or organs, such as nerve damage. ??? Heart attack. ??? Pneumonia. ??? Allergic reactions to medicines or dyes. What happens before the procedure? Medicines Ask your health care provider about: ??? Changing or stopping your regular medicines. This is especially important if you are taking diabetes medicines or blood thinners. ??? Taking medicines such as aspirin and ibuprofen. These medicines can thin your blood. Do not take these medicines unless your health care provider tells you to take them. ??? Taking fenq-bog-plmmsvf medicines, vitamins, herbs, and supplements. Eating and drinking Follow instructions from your health care provider about eating and drinking, which may include: ??? 8 hours before the procedure ??? stop eating heavy meals or foods, such as meat, fried foods, or fatty foods. ??? 6 hours before the procedure ??? stop eating light meals or foods, such as toast or cereal. ??? 6 hours before the procedure ??? stop drinking milk or drinks that contain milk. ??? 2 hours before the procedure ??? stop drinking clear liquids. Staying hydrated Follow instructions from your health care provider about hydration, which may include: ??? Up to 2 hours before the procedure ??? you may continue to drink clear liquids, such as water, clear fruit juice, black coffee, and plain tea. General instructions ??? Plan to have someone take you home from the hospital or clinic. ??? Ask your health care provider: ??? How your surgery site will be marked. ??? What steps will be taken to help prevent infection. These may include: ??? Removing hair at the surgery site. ??? Washing skin with a germ-killing soap. ??? Receiving antibiotic medicine. ??? You may have tests, including: ??? Blood tests. ??? A test to check your heart's rhythm (electrocardiogram). ??? A test to look inside your arteries to see how the blood is flowing (angiogram). ??? Do not use any products that contain nicotine or tobacco for at least 4 weeks before the procedure. These products include cigarettes, e-cigarettes, and chewing tobacco. If you need help quitting, ask your health care provider. What happens during the procedure? An IV will be inserted into one of your veins. ??? You will be given one or more of the following: ??? A medicine to help you relax (sedative). ??? A medicine to make you fall asleep (general anesthetic). ??? A medicine that is injected into your spine to numb the area below and slightly above the injection site (spinal anesthetic). ??? A medicine that is injected into an area of your body to numb everything below the injection site (regional anesthetic). ??? A small, thin tube (catheter) will be placed into your bladder to drain urine during and after the procedure. ??? If the graft will come from one of your own veins (autograft): ??? An incision will be made in your leg near the portion of the autograft vein that will be used. ??? After the autograft is removed, this incision will be closed. ??? To insert the graft, the surgeon will: ??? Make an incision in your groin area so he or she can locate your femoral artery. ??? Place a clamp above the area where the femoral artery is blocked. ??? Sew the graft into the artery above the blocked area. ??? Make another incision lower in the leg over the popliteal artery. This is usually behind the knee. ??? Place a clamp on the popliteal artery and then bring the other end of the graft down under the skin between the two incisions. ??? Sew the free end of the graft into the popliteal artery. ??? The clamps will be removed, and the attachments will be checked for leaking. ??? You may have an X-ray done after a dye is injected (arteriogram). This is to check the blood flow through the graft. ??? The incisions will be closed with stitches (sutures) or sailaja. ??? Bandages (dressings) will be applied to the area. The procedure may vary among health care providers and hospitals. What happens after the procedure? Your blood pressure, heart rate, breathing rate, and blood oxygen level will be monitored untilyou leave the hospital or clinic. ??? You may be given medicine for pain. ??? You may be given medicine for your blood pressure. ??? Your IV and catheter may be removed when you are taking fluids well and passing urine. ??? You may be given blood thinner medicine to prevent blood clots. ??? You may have to wear compression stockings. These help to prevent blood clots and reduce swelling in your legs. ??? Your surgical site will be checked often to make sure that you have good blood flow in your leg. Health care providers will: Feel for a pulse on your foot. Check your leg for changes in color and temperature and for decreased feeling (sensation) and movement. ??? You will be encouraged to get up and walk as soon as you are able. This helps to prevent blood clots. ??? Do not drive for 24 hours if you were given a sedative during your procedure. Summary ??? A femoropopliteal bypass is a surgery to treat a blocked artery in the leg. ??? In this procedure, a graft is put in that will allow blood to go around (bypass) the blocked artery. ??? Follow instructions from your health care provider about taking medicines and about eating and drinking before the procedure. Document Revised: 08/17/2019 Document Reviewed: 08/17/2019 [employer] Patient Education ?? 2021 [employer]. Care after Femoropopliteal Bypass What can I expect after the procedure? After the procedure, it is common to have: ??? Discomfort or pain near the incisions. ??? Swelling in your leg or foot. ??? Numbness in your groin, lower leg, or foot. Follow these instructions at home: Incision care ??? Follow instructions from your health care provider about how to take care of your incisions. Make sure you: ??? Wash your hands with soap and water before and after you change your bandages (dressings). If soap and water are not available, use hand talent engineer. ??? Change your dressings as told by your health care provider. ??? Leave stitches (sutures), skin glue, or adhesive strips in place. These skin closures may need to stay in place for 2 weeks or longer. If adhesive strip edges start to loosen and curl up, you maytrim the loose edges. Do not remove adhesive strips completely unless your health care provider tells you to do that. ??? Check your incision areas every day for signs of infection. Check for: ??? More redness, swelling, or pain. ??? Fluid or blood. ??? Warmth. ??? Pus or a bad smell. Medicines ??? Take lqhd-yea-ezlrnci and prescription medicines only as told by your health care provider. ??? If you were prescribed an antibiotic medicine, take it as told by your health care provider. Donot stop taking the antibiotic even if you start to feel better. ??? Ask your health care provider if the medicine prescribed to you requires you to avoid driving or using heavy machinery. Activity ??? Do not lift anything that is heavier than 10 lb (4.5 kg), or the limit that you are told, untilyour health care provider says that it is safe. ??? Until your health care provider approves: ??? Do not take long car trips. ??? Do not travel by air. ??? Avoid sitting for long periods of time. Change positions every 30 minutes. ??? Do any exercises that your health care providers have given you. These may include deep breathing, coughing, and walking exercises. ??? Raise (elevate) your legs above the level of your heart while you are sitting or lying down. ??? Return to your normal activities as told by your health care provider. Ask your health care provider what activities are safe for you. General instructions ??? Do not drive for 24 hours if you were given a sedative during your procedure. ??? Do not use any products that contain nicotine or tobacco, such as cigarettes, e-cigarettes, andchewing tobacco. These can delay healing after surgery. If you need help quitting, ask your health care provider. ??? Do not take baths, swim, or use a hot tub until your health care provider approves. Ask your health care provider if you may take showers. You may only be allowed to take sponge baths. ??? Wear compression stockings as told by your health care provider. These stockings help to prevent blood clots and reduce swelling in your legs. ??? Keep all follow-up visits as told by your health care provider. This is important. Contact a health care provider if: ??? Medicine does not help your pain. ??? You feel nauseous or you vomit. ??? You feel weak and tired for more than a week after your procedure. ??? You have a fever or chills. ??? You have more redness, swelling, or pain around an incision. ??? You have fluid or blood coming from an incision. ??? An incision feels warm to the touch. ??? You have pus or a bad smell coming from an incision. Get help right away if: ??? You have bleeding from an incision that does not stop after heavy pressure has been applied for30 minutes. ??? You have chest pain. ??? You faint. ??? You have dizziness. ??? Your pain is severe. ??? You are short of breath or you have trouble breathing. ??? Your leg or foot becomes cold, pale, or numb. ??? You have red streaks coming from an incision. Summary ??? Change your dressings as told by your health care provider. Check your incision areas every dayfor signs of infection. ??? Do not lift anything that is heavier than 10 lb (4.5 kg), or the limit that you are told, untilyour health care provider says that it is safe. ??? Do any exercises that your health care providers have given you. These may include deep breathing, coughing, and walking exercises. ??? Keep all follow-up visits as told by your health care provider. This is important. Document Revised: 08/17/2019 Document Reviewed: 08/17/2019 [employer] Patient Education ?? 2021 [employer] Incision Care An incision is a cut that a doctor makes in your skin for surgery. Most times, these cuts are closed after surgery. Your cut from surgery may be closed with: ??? Stitches (sutures). ??? Sailaja. ??? Skin glue. ??? Skin tape (adhesive) strips. You may need to go back to your doctor to have stitches or sailaja taken out. This may happen many days or many weeks after your surgery. You need to take good care of your cut so it does not get infected. Follow instructions from your doctor about how to care for your cut. Supplies needed: ??? Soap and water. ??? A clean hand towel. ??? Wound cleanser. ??? A clean bandage (dressing), if needed. ??? Cream or ointment, if told by your doctor. ??? Clean gauze. How to care for your cut from surgery Cleaning your cut Ask your doctor how to clean your cut. You may need to: ??? Wear medical gloves. ??? Use mild soap and water, or a wound cleanser. ??? Use a clean gauze to pat your cut dry after you clean it. Changing your bandage ??? Wash your hands with soap and water for at least 20 seconds before and after you change your bandage. If you cannot use soap and water, use hand talent engineer. ??? Do not use disinfectants or antiseptics, such as rubbing alcohol, to clean your wound unless told by your doctor. ??? Change your bandage as told by your doctor. ??? Leave stitches or skin glue in place for at least 2 weeks. ??? Leave tape strips alone unless you are told to take them off. You may trim the edges of the tape strips if they curl up. ??? Put a cream or ointment on your cut. Do this only as told. ??? Cover your cut with a clean bandage. ??? Ask your doctor when you can leave your cut uncovered. Checking for infection Check your cut area every day for signs of infection. Check for: ??? More redness, swelling, or pain. ??? More fluid or blood. ??? New warmth. ??? Hardness or a new rash around the incision. ??? Pus or a bad smell. Follow these instructions at home Medicines ??? Take qjpr-xci-xrbzlds and prescription medicines only as told by your doctor. ??? If you were prescribed an antibiotic medicine, cream, or ointment, use it as told by your doctor. Do not stop using the antibiotic even if you start to feel better. Eating and drinking ??? Eat foods that have a lot of certain nutrients, such as protein, vitamin A, and vitamin C. These foods help your cut heal. ??? Foods rich in protein include meat, fish, eggs, dairy, beans, nuts, and protein drinks. ??? Foods rich in vitamin A include carrots and dark green, leafy vegetables. ??? Foods rich in vitamin C include citrus fruits, tomatoes, broccoli, and peppers. ??? Drink enough fluid to keep your pee (urine) pale yellow. General instructions ??? Do not take baths, swim, or use a hot tub. Ask your doctor about taking showers or sponge baths. ??? Limit movement around your cut. This helps with healing. ??? Try not to strain, lift, or exercise for the first 2 weeks, or for as long as told by your doctor. ??? Return to your normal activities as told by your doctor. Ask your doctor what activities are safe for you. ??? Do not scratch, scrub, or pick at your cut. Keep it covered as told by your doctor. ??? Protect your cut from the sun when you are outside for the first 6 months, or for as long as told by your doctor. Cover up the scar area or put on sunscreen that has an SPF of at least 30. ??? Do not use any products that contain nicotine or tobacco, such as cigarettes, e-cigarettes, andchewing tobacco. These can delay cut healing. If you need help quitting, ask your doctor. ??? Keep all follow-up visits. Contact a doctor if: ??? You have any of these signs of infection around your cut: ??? More redness, swelling, or pain. ??? More fluid or blood. ??? New warmth or hardness. ??? Pus or a bad smell. ??? A new rash. ??? You have a fever. ??? You feel like you may vomit (nauseous). ??? You vomit. ??? You are dizzy. ??? Your stitches, sailaja, skin glue, or tape strips come undone. ??? Your cut gets bigger. ??? You have a fever. Get help right away if: ??? Your cut bleeds through your bandage, and bleeding does not stop with gentle pressure. ??? Your cut opens up and comes apart. Summary ??? Follow instructions from your doctor about how to care for your cut. ??? Wash your hands with soap and water for at least 20 seconds before and after you change your bandage. If you cannot use soap and water, use hand talent engineer. ??? Check your cut area every day for signs of infection. ??? Keep all follow-up visits. Document Revised: 12/04/2021 Document Reviewed: 12/04/2021 [employer] Patient Education ?? 2021 [employer] How to Prevent Constipation After Surgery Constipation is a common problem after surgery. Many things can make constipation more likely aftera surgery, including: ??? Certain medicines, especially numbing medicines (anesthetics) and very strong pain medicines called opioids. ??? Feeling stressed because of the surgery. ??? Eating different foods than normal. ??? Being less active. Symptoms of constipation include: ??? Having fewer than three bowel movements a week. ??? Straining to have a bowel movement. ??? Having hard, dry, or rrxxol-qway-aeejmk stools (feces). ??? Discomfort in the lower abdomen, such as cramps or bloating. ??? Not feeling relief after having a bowel movement. ??? Nausea and vomiting. You can take steps to help prevent constipation after surgery. Follow these instructions at home: Eating and drinking ??? Eat foods that have a lot of fiber in them, such as beans, bran, whole grains, and fresh fruitsand vegetables. ??? Limit foods that are high in fat and processed sugars, such as fried or sweet foods. These include qatari fries, hamburgers, cookies, and candy. ??? Take a fiber supplement as told by your health care provider. If you are not taking a fiber supplement and you think you are not getting enough fiber from foods, talk to your health care providerabout adding a fiber supplement to your diet. ??? Drink enough fluid to keep your urine pale yellow. ??? Drink clear fluids, especially water. Avoid drinking alcohol, caffeine, and soda. These can make constipation worse. Activity ??? After surgery, return to your normal activities slowly, or when your health care provider says it is okay. ??? Start walking as soon as you can. Try to go a little farther each day. ??? Once your health care provider approves, do some sort of regular exercise. This helps prevent constipation. Bowel movements ??? Go to the restroom when you have the urge to go. Do not hold it in. ??? Try drinking something hot to get a bowel movement started. ??? Keep track of how often you use the restroom. Medicines ??? Take ahsq-ngh-mclgmfb and prescription medicines only as told by your health care provider. ??? Talk to your health care provider about medicines that may help prevent constipation, particularly if you have a history of constipation. Your health care provider may suggest a stool softener, laxative, or fiber supplement. ??? Do not take any medicines without talking to your health care provider first. Contact a health care provider if: ??? You used stool softeners or laxatives and still have not had a bowel movement within 24???48 hours after using them. ??? You have not had a bowel movement in 3 days. ??? You have a fever. Get help right away if you have: ??? Constipation that lasts for more than 4 days or if your symptoms get worse. ??? Bright red blood in your stool. ??? Pain in the abdomen or rectum. ??? Very bad cramping. ??? Thin, pencil-like stools. ??? Unexplained weight loss. Summary ??? Constipation is a common problem after surgery. Many things can make constipation more likely after a surgery, including certain medicines, eating different foods than normal, and being less active. ??? Symptoms of constipation include having fewer than three bowel movements a week, straining to have a bowel movement, and cramps or bloating in the lower abdomen. ??? To help prevent constipation, you should eat foods that are high in fiber, drink plenty of fluids, and get regular physical activity. ??? Your health care provider may suggest medicines, such as stool softeners or laxatives, to help prevent constipation. Document Revised: 07/20/2020 Document Reviewed: 07/20/2020 [employer] Patient Education ?? 2021 [employer] Basics of Medicine Management Taking your medicines correctly is an important part of managing or preventing medical problems. Make sure you know what disease or condition your medicine is treating, and how and when to take it. If you do not take your medicine correctly, it may not work well and may cause unpleasant side effects, including serious health problems. What should I do when I am taking medicines? Read all the labels and inserts that come with your medicines. Review the information often andwith each refill. ??? Talk with your pharmacist if you get a refill and notice a change in the size, color, or shape of your medicines. ??? Know the potential side effects for each medicine that you take. ??? Try to get all your medicines from the same pharmacy. The pharmacist will have all your information and will understand how your medicines will affect each other (interact). ??? Always carry an updated list of your medicines with you. If there is an emergency, a nurse first aid can quickly see what medicines you are taking. ??? Tell your health care provider about all your medicines, including tewz-uwe-vwbkuhx medicines, vitamins, and herbal or dietary supplements. Your health care provider will make sure that nothing will interact with any of your prescribed medicines. How can I take my medicines safely? Take medicines only as told by your health care provider. ??? Do not take more of your medicine than instructed. ??? Do not take anyone else's medicines. ??? Do not share your medicines with others. ??? Do not stop taking your medicines unless your health care provider tells you to do so. ??? You may need to avoid alcohol or certain foods or liquids when taking certain medicines. Followyour health care provider's instructions. ??? Do not split, cut, crush, or chew your medicines unless your health care provider tells you to do so. Tell your health care provider if you have trouble swallowing your medicines. ??? For liquid medicine, use the dosing container that was provided. Household spoons are not accurate. How should I organize my medicines? Know your medicines ??? Know what each of your medicines looks like. This includes size, color, and shape. Tell your health care provider if you are having trouble recognizing all the medicines that you are taking. ??? If you cannot tell your medicines apart because they look similar, keep them in the original bottles. ??? If you cannot read the labels on the bottles, tell your pharmacist to put your medicines in containers with large print. ??? Review your medicines and your schedule with family members, a friend, or a caregiver. Use a pill organizer ??? Use a tool to organize your medicine schedule. Tools include a weekly pillbox, a written chart,a notebook, or a calendar. ??? Your tool should help you remember the following things about each medicine: ??? The name of the medicine. ??? The amount (dose) to take. ??? The schedule. This is the day and time the medicine should be taken. ??? The appearance. This includes color, shape, size, and stamp. ??? How to take your medicines. This includes instructions to take them with food, without food, with fluids, or with other medicines. ??? Create reminders for taking your medicines. Use sticky notes, or use alarms on your watch, mobile device, or phone calendar. ??? You may choose to use a more advanced management system. These systems have storage, alarms, and visual and audio prompts. ??? Some medicines can be taken on an as-needed basis. These may include medicines for nausea, constipation, pain, cough and cold, allergies, and anxiety. If you take an as-needed medicine, write down the name and dose, as well as the date and time that you took it. How should I plan for travel? Take your pillbox, medicines, and organization system with you when traveling. ??? Have your medicines refilled before you travel. This will ensure that you do not run out of your medicines while you are away from home. ??? Always carry an updated list of your medicines with you. If there is an emergency, a nurse first aid can quickly see what medicines you are taking. ??? Do not pack your medicines in checked luggage in case your luggage is lost or delayed. Keep your medicines in your carry-on bag. ??? If any of your medicines is considered a controlled substance, make sure you bring a letter from your health care provider with you. How should I store and discard my medicines? For safe storage: ??? Store medicines in a cool, dry area away from light, or as directed by your health care provider. Do not store medicines in the bathroom. Heat and humidity will affect them. ??? Do not store your medicines with other chemicals or with medicines for pets or other household members. ??? Keep medicines away from children and pets. Do not leave them on counters or bedside tables. Store them in high cabinets or on high shelves. For safe disposal: ??? Check expiration dates regularly. Do not take medicines. Discard medicines that are older than the expiration date. ??? Learn a safe way to dispose of your medicines. You may: ??? Use a local government, hospital, or pharmacy udgsbtsp-mpvr-dxyt program. ??? If you cannot return the medicine, check the label or package insert to see if the medicine should be thrown out in the garbage or flushed down the toilet. If you are not sure, ask your health care team. ??? If it is safe to put the medicine in the trash, empty the medicine out of the container. Mix the medicine with cat litter, dirt, coffee grounds, or another unwanted substance. Seal the mixture erin bag or container. Put it in the trash. What should I remember? Tell your health care provider if you: ??? Experience side effects. ??? Have new symptoms. ??? Feel that your medicine is no longer working. ??? Have other concerns about taking your medicines. ??? Review your medicines regularly with your health care provider. Other medicines, diet, medical conditions, weight changes, and daily habits can all affect how medicines work. Ask if you need to continue taking each medicine, and discuss how well each one is working. ??? Refill your medicines early to avoid running out of them. ??? In case of an accidental overdose, call your local poison control center at or go to your local emergency department right away. Summary ??? Taking your medicines correctly is an important part of managing or preventing medical problems. ??? You need to make sure that you understand what you are taking a medicine for, as well as how and when you need to take it. ??? Use a tool to organize your medicine schedule. Tools include a weekly pillbox, a written chart,a notebook, or a calendar. ??? In case of an accidental overdose, call your local Poison Control Center at or go to your local emergency department right away. Document Revised: 04/10/2022 Document Reviewed: 04/10/2022 [employer] Patient Education ?? 2021 [employer] Fall Prevention in the Home, Adult Falls can cause injuries and can happen to people of all ages. There are many things you can do to make your home safe and to help prevent falls. Ask for help when making these changes. What actions can I take to prevent falls? General Instructions ??? Use good lighting in all rooms. Replace any light bulbs that burn out. ??? Turn on the lights in dark areas. Use night-lights. ??? Keep items that you use often in bxwi-pv-obyqy places. Lower the shelves around your home if needed. ??? Set up your furniture so you have a clear path. Avoid moving your furniture around. ??? Do not have throw rugs or other things on the floor that can make you trip. ??? Avoid walking on wet floors. ??? If any of your floors are uneven, fix them. ??? Add color or contrast paint or tape to clearly emerson and help you see: ??? Grab bars or handrails. ??? First and last steps of staircases. ??? Where the edge of each step is. ??? If you use a stepladder: ??? Make sure that it is fully opened. Do not climb a closed stepladder. ??? Make sure the sides of the stepladder are locked in place. ??? Ask someone to hold the stepladder while you use it. ??? Know where your pets are when moving through your home. What can I do in the bathroom? Keep the floor dry. Clean up any water on the floor right away. ??? Remove soap buildup in the tub or shower. ??? Use nonskid mats or decals on the floor of the tub or shower. ??? Attach bath mats securely with double-sided, nonslip rug tape. ??? If you need to sit down in the shower, use a plastic, nonslip stool. ??? Install grab bars by the toilet and in the tub and shower. Do not use towel bars as grab bars. What can I do in the bedroom? Make sure that you have a light by your bed that is easy to reach. ??? Do not use any sheets or blankets for your bed that hang to the floor. ??? Have a firm chair with side arms that you can use for support when you get dressed. What can I do in the kitchen? Clean up any spills right away. ??? If you need to reach something above you, use a step stool with a grab bar. ??? Keep electrical cords out of the way. ??? Do not use floor danish or wax that makes floors slippery. What can I do with my stairs? Do not leave any items on the stairs. ??? Make sure that you have a light switch at the top and the bottom of the stairs. ??? Make sure that there are handrails on both sides of the stairs. Fix handrails that are broken or loose. ??? Install nonslip stair treads on all your stairs. ??? Avoid having throw rugs at the top or bottom of the stairs. ??? Choose a carpet that does not hide the edge of the steps on the stairs. ??? Check carpeting to make sure that it is firmly attached to the stairs. Fix carpet that is looseor worn. What can I do on the outside of my home? Use bright outdoor lighting. ??? Fix the edges of walkways and driveways and fix any cracks. ??? Remove anything that might make you trip as you walk through a door, such as a raised step or threshold. ??? Trim any bushes or trees on paths to your home. ??? Check to see if handrails are loose or broken and that both sides of all steps have handrails. ??? Install guardrails along the edges of any raised decks and porches. ??? Clear paths of anything that can make you trip, such as tools or rocks. ??? Have leaves, snow, or ice cleared regularly. ??? Use sand or salt on paths during winter. ??? Clean up any spills in your garage right away. This includes grease or oil spills. What other actions can I take? Wear shoes that: ??? Have a low heel. Do not wear high heels. ??? Have rubber bottoms. ??? Feel good on your feet and fit well. ??? Are closed at the toe. Do not wear open-toe sandals. ??? Use tools that help you move around if needed. These include: ??? Canes. ??? Walkers. ??? Scooters. ??? Crutches. ??? Review your medicines with your doctor. Some medicines can make you feel dizzy. This can increase your chance of falling. Ask your doctor what else you can do to help prevent falls. Where to find more information ??? Centers for Disease Control and Prevention, [place]: www.cdc.gov ??? National [place] on Aging: www.luh.nih.gov Contact a doctor if: ??? You are afraid of falling at home. ??? You feel weak, drowsy, or dizzy at home. ??? You fall at home. Summary ??? There are many simple things that you can do to make your home safe and to help prevent falls. ??? Ways to make your home safe include removing things that can make you trip and installing grab bars in the bathroom. ??? Ask for help when making these changes in your home. This information is not intended to replace advice given to you by your health care provider. Make sure you discuss any questions you have with your health care provider. Document Revised: 04/05/2021 Document Reviewed: 04/05/2021 [employer] Patient Education ?? 2021 [employer]. October 2022 07/09/2023 09:26:10 Peripheral Vascular Disease, Opoc-su-Jcld Peripheral Vascular Disease Peripheral vascular disease (PVD) is a disease of the blood vessels that carry blood from the heartto the rest of the body. PVD is also called peripheral artery disease (PAD) or poor circulation. PVD affects most of the body. But it affects the legs and feet the most. PVD can lead to acute limb ischemia. This happens when there is a sudden stop of blood flow to an arm or leg. This is a medical emergency. What are the causes? The most common cause of PVD is a buildup of a fatty substance (plaque) inside your arteries. This decreases blood flow. Plaque can break off and block blood in a smaller artery. This can lead to acute limb ischemia. Other common causes of PVD include: ??? Blood clots inside the blood vessels. ??? Injuries to blood vessels. ??? Irritation and swelling of blood vessels. ??? Sudden tightening of the blood vessel (spasms). What increases the risk? A family history of PVD. ??? Medical conditions, including: ??? High cholesterol. ??? Diabetes. ??? High blood pressure. ??? Heart disease. ??? Past problems with blood clots. ??? Past injury, such as martin or a broken bone. ??? Other conditions, such as: ??? Buerger's disease. This is caused by swollen or irritated blood vessels in your hands and feet. ??? Arthritis. ??? defects that affect the arteries in your legs. ??? Kidney disease. ??? Using tobacco or nicotine products. ??? Not getting enough exercise. ??? Being very overweight (obese). ??? Being 50 years old or older. What are the signs or symptoms? Cramps in your butt, legs, and feet. ??? Pain and weakness in your legs when you are active that goes away when you rest. ??? Leg pain when at rest. ??? Leg numbness, tingling, or weakness. ??? Coldness in a leg or foot, especially when compared with the other leg or foot. ??? Skin or hair changes. These can include: ??? Hair loss. ??? Shiny skin. ??? Pale or bluish skin. ??? Thick toenails. ??? Being unable to get or keep an erection. ??? Tiredness (fatigue). ??? Weak pulse or no pulse in the feet. ??? Wounds and sores on the toes, feet, or legs. These take longer to heal. How is this treated? Underlying causes are treated first. Other conditions, like diabetes, high cholesterol, and blood pressure, are also treated. Treatment may include: ??? Lifestyle changes, such as: ??? Quitting smoking. ??? Getting regular exercise. ??? Having a diet low in fat and cholesterol. ??? Not drinking alcohol. ??? Taking medicines, such as: ??? Blood thinners. ??? Medicines to improve blood flow. ??? Medicines to improve your blood cholesterol. ??? Procedures to: ??? Open the arteries and restore blood flow. ??? Insert a small mesh tube (stent) to keep a blocked vessel open. ??? Create a new path for blood to flow to the body (peripheral bypass). ??? Remove tissue from a wound. ??? Remove an affected leg or arm. Follow these instructions at home: Medicines ??? Take bggl-dsn-lcierya and prescription medicines only as told by your doctor. ??? If you are taking blood thinners: ??? Talk with your doctor before you take any medicines that have aspirin, or NSAIDs, such as ibuprofen. ??? Take medicines exactly as told. Take them at the same time each day. ??? Avoid doing things that could hurt or bruise you. Take action to prevent falls. ??? Wear an alert bracelet or carry a card that shows you are taking blood thinners. Lifestyle ??? Get regular exercise. Ask your doctor about how to stay active. ??? Talk with your doctor about keeping a healthy weight. If needed, ask about losing weight. ??? Eat a diet that is low in fat and cholesterol. If you need help, talk with your doctor. ??? Do not drink alcohol. ??? Do not smoke or use any products that contain nicotine or tobacco. If you need help quitting, ask your doctor. General instructions ??? Take good care of your feet. To do this: ??? Wear shoes that fit well and feel good. ??? Check your feet often for any cuts or sores. ??? Get a flu shot (influenza vaccine) each year. ??? Keep all follow-up visits. Where to find more information ??? Society for Vascular Surgery: vascular.org ??? [place] Heart Association: heart.org ??? National Heart, Lung, and Blood [place]: nhlbi.nih.gov Contact a doctor if: ??? You have cramps in your legs when you walk. ??? You have leg pain when you rest. ??? Your leg or foot feels cold. ??? Your skin changes. ??? You cannot get or keep an erection. ??? You have cuts or sores on your legs or feet that do not heal. Get help right away if: ??? You have sudden changes in the color and feeling of your arms or legs, such as: ??? Your arm or leg turns cold, numb, and blue. ??? Your arm or leg becomes red, warm, swollen, painful, or numb. ??? You have any signs of a stroke. BE FAST is an easy way to remember the main warning signs: ??? B - Balance. Dizziness, sudden trouble walking, or loss of balance. ??? E - Eyes. Trouble seeing or a change in how you see. ??? F - Face. Sudden weakness or loss of feeling of the face. The face or eyelid may droop on one side. ??? A - Arms. Weakness or loss of feeling in an arm. This happens all of a sudden and most often onone side of the body. ??? S - Speech. Sudden trouble speaking, slurred speech, or trouble understanding what people say. ??? T - Time. Time to call emergency services. Write down what time symptoms started. ??? You have other signs of a stroke, such as: ??? A sudden, very bad headache with no known cause. ??? Feeling like you may vomit (nausea). ??? Vomiting. ??? A seizure. ??? You have chest pain or trouble breathing. These symptoms may be an emergency. Get help right away. Call your local emergency services (911 int [place] ??? Do not wait to see if the symptoms will go away. ??? Do not drive yourself to the hospital. Summary ??? Peripheral vascular disease (PVD) is a disease of the blood vessels. ??? PVD affects the legs and feet the most. ??? Symptoms may include leg pain or leg numbness, tingling, and weakness. ??? Treatment may include lifestyle changes, medicines, and procedures. This information is not intended to replace advice given to you by your health care provider. Make sure you discuss any questions you have with your health care provider. Document Revised: 03/06/2021 Document Reviewed: 03/06/2021 [employer] Patient Education ?? 2021 [employer]. Follow Up Care 07/03/2023 10:14:19 With:[facility] Address:Unknown When: Unknown Comments:[facility] care phone [phone] please fax final discharge paperwork to [phone]! With:Yosef Jameson Address: [address] [place] [address], [address] [place] [address]- Business (1) When:07/17/2023 13:40:00 Comments:As scheduled. Reason for Referral , referred to: [facility] Referred by: Karan Mohr DO Progress note * Yosef Jameson MD: PERFORM Event Display: Progress Notes Authored Date: Patient seen and examined this morning Sitting up in bed, minimal pain Working with therapies, tolerating diet Ready to go home, in agreement VSS AF Extremities: DP pulse noted Prevena dressings removed, wounds intact Discharge home Home Health Care consultation Follow-up in my office next week Electronically signed by:Yosef Jameson MD 07/09/23 08:06 * Clarisse LARA, Emy Mcgowan: PERFORM Event Display: Progress Notes Authored Date: Subjective GMS consulted for??DM2 with hyperglycemia.by Dr. Jameson._ ?? HgbA1c: 6.2 % (06/03/23) Weight (kg) (Clinical): 75 kg (07/04/23 22:44:00) ?? HPI: Hx PVD and left AKA 4 months ago. 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 Has had DM for about 30 years. Reports BLE neuropathy. Denies vision changes. Positive family hx in mother for DM2. Has decreased his Lantus from 40 units at bedtime to a split dose of 20 units in the morning and10 units at bedtime to prevent hypoglycemia. He also has started having peanut butter and bread or crackers at bedtime to prevent hypoglycemia. Uses a CGM. ?? Home Regimen: NovoLog 6 units tidwm + Lantus??10 units qHS & 20 units qAM ?? Hospital Regimen: Humalog MDCS ACHS + Lantus 24 units QAM + Humalog 1:8 tidwm ?? Diet:??soft diet; eating??25-100% per documentation ?? BG's reviewed ?? Labs - Diabetes - GMS Bedside Glucose: 181 mg/dL (07/08/23 12:50:26) Bedside Glucose: 163 mg/dL (07/08/23 08:26:02) Bedside Glucose: 143 mg/dL (07/08/23 03:03:53) Bedside Glucose: 188 mg/dL (07/07/23 20:50:00) Bedside Glucose: 215 mg/dL (07/07/23 17:31:37) Review of Systems Denies N/V Objective Vitals & Measurements ??Vital Signs (last 24 hrs)?Last Charted?Minimum?Maximum?Temp?98.4 (JUL 08 13:08)?97.5 (JUL 07 19:09)?98.5 (JUL 08 03:06)?Heart Rate?54 (OCT 13:28)?54 (OCT 13:28)?119 (OCT 22:31)?Resp Rate?16 (JUL 08 13:08)?14 (OCT 22:31)?18 (JUL 08 03:06)?SBP?127 (JUL 08 13:28)?97 (OCT 13:08)?134 (OCT 17:32)?DBP?74 (OCT 13:28)?55 (OCT 13:08)?91 (JUL 08 08:33)?SpO2?98 (JUL 08 13:08)?94 (OCT 22:31)?98 (JUL 07 17:32)?O2?Room a (JUL 08 13:08)?Room a (JUL 07 18:52)?Room a (JUL 07 18:52)?Weight?79.4 (JUL 08 02:17)?79.4 (JUL 08 02:17)?79.4 (JUL 08 02:17)?? Physical Exam General: In no acute distress. Alert & oriented. Behavior and affect appropriate to situation Skin: Warm and dry with no rash or suspicious lesions noted. Chest: Respirations even and unlabored.?? Assessment/Plan 1.??Diabetes mellitus with hyperglycemia(Type 2 diabetes mellitus with hyperglycemia: E11.65) - While inpatient - Increase Lantus to 28 units QAM +?? Humalog to 1:6 tidwm + continue MDCS ACHS with ACHS BG monitoring - For discharge - Can resume NovoLog 6 units tidwm + Lantus??10 units qHS & 20 units qAM HgbA1c: 6.2 % (06/03/23) Patient educated he can take Lantus 30 units once daily in the AM instead of splitting his Lantus dose between morning and night. - Med rec updated; possible d/c tomorrow Will continue to follow and modify regimen as needed? 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, Disp Location: [facility] Other Medications Medications (32) Active Scheduled: (32) aaMAR Note ??Use Sodium Phosphate unless.., UNSPECIFIED-See comments, Unscheduled aaMAR Note ??DC if...., UNSPECIFIED-See comments, Unscheduled cefOXitin 2000 mg SDV ??2,000 mg, IVPB, Unscheduled cetirizine 10 mg TAB ??10 mg 1 tab, By mouth, Daily clopidogrel 75 mg TAB ??75 mg 1 tab, By mouth, Daily docusate sod 100 mg CAP ??100 mg 1 cap, PO/per tube, BID DULoxetine 20 mg CAP ??20 mg 1 cap, By mouth, Daily ferrous sulfate 325 mg TAB ??325 mg 1 tab, By mouth, Daily folic acid 1 mg TAB ??1 mg 1 tab, By mouth, Daily furosemide 40 mg TAB ??40 mg 1 tab, By mouth, Daily gabapentin 100 mg CAP ??200 mg 2 cap, By mouth, TID guar gum (BeneFIBer/Nutrisource) 0.14 oz ??PACKET ??4 g 1 pkt, By mouth, Daily hydrALAZINE 50 mg TAB ??50 mg 1 tab, By mouth, BID insulin GLARgine (LanTUS) 100 units/mL 3ml Pen ??28 Units 0.28 mL, SubQ, QAM Insulin Lispro (HumaLOG) 100 units/mL 3 ml Pen ??Medium dose scale, SUBQ, With Meals & Bedtime Insulin Lispro (HumaLOG) 100 units/mL 3 ml Pen ??1 Unit per 6g carbs consumed, SubQ, TIDWM (three times a day with meals) lisinopril 40 mg TAB ??40 mg 1 tab, By mouth, Daily methotrexate *ANTINEO* 2.5 mg TAB ??20 mg 8 tab, By mouth, QMonday milk of magnesia 8% UD CUP 30 mL ??15 mL, By mouth, Daily multivitamin + minerals TAB ??1 tab, By mouth, Daily nicotine 21 mg PATCH ??21 mg 1 patch, TD, Daily nicotine 21 mg PATCH ??21 mg 1 patch, TD, Daily Nicotine Patch Removal Task ??1 EA, TD, QAM Nicotine Patch Removal Task ??1 EA, TD, QAM pantoprazole 40 mg TAB ??40 mg 1 tab, By mouth, at bedtime rivaroxaban 20 mg TAB ??20 mg 1 tab, By mouth, with supper senna 8.8 mg/5 mL syrup UD ORAL SYR/CUP 10 mL ??17.6 mg 10 mL, By mouth, at bedtime simvastatin 20 mg TAB ??20 mg 1 tab, By mouth, at bedtime sodium chloride 0.9% INJ SYR 5 mL ??5 mL, IVP, Q12H sotalol 120 mg TAB ??120 mg 1 tab, By mouth, Daily Sucralfate 1g Tab ??1 g 1 tab, By mouth, ACHS (before meals and at bedtime) tamsulosin 0.4 mg CAP ??0.4 mg 1 cap, By mouth, Daily Continuous: (0) Lab Results Labs??(Last two charted values on this encounter) WBC 11.8 ??(JUL 07) 11.3 ??(JUL 06) Hgb 10.3 ??(JUL 07) 10.2 ??(JUL 06) Hct 30.9 ??(JUL 07) 31.5 ??(JUL 06) Platelets 256 ??(JUL 07) 265 ??(JUL 06) Na 141 ??(JUL 07) 137 ??(JUL 06) K 4.1 ??(JUL 07) 4.3 ??(JUL 06) Cl 111 ??(JUL 07) 109 ??(JUL 06) CO2 23 ??(JUL 07) 22 ??(JUL 06) BUN 29 ??(JUL 07) 34 ??(JUL 06) Cr 1.10 ??(JUL 07) 1.38 ??(JUL 06) Ca ?7.9 ??(JUL 07) ?7.3 ??(JUL 06) Mag ?1.9 ??(JUL 05) ?? PT ?10.8 ??(JUL 04) ?? INR ?1.01 ??(JUL 04) ?? PTT 26 ??(JUL 04) ?? Bedside Glucose 181 ??(JUL 08) 163 ??(JUL 08) Glucose,Plasma 141 ??(JUL 07) 196 ??(JUL 06) Electronically signed by:Clarisse LARA, Emy Mcgowan 07/08/23 13:44 * Kuldeep DE LA GARZA, Bonita Soriano: PERFORM Event Display: Progress Notes Authored Date: [id number] Subjective Patient seen while sitting in chair. Per aid, he required only minimal assistance transferring to the chair today. No new concerns today. Objective Vitals & Measurements ??Vital Signs (last 24 hrs)?Last Charted?Minimum?Maximum?Temp?97.8 (JUL 08 08:33)?97.5 (JUL 07 19:09)?98.5 (JUL 08 03:06)?Heart Rate?102 (JUL 08 08:33)?100 (JUL 07 11:30)?119 (JUL 07 22:31)?Resp Rate?16 (JUL 08 08:33)?14 (JUL 07 22:31)?18 (JUL 08 03:06)?SBP?125 (JUL 08 08:33)?104 (JUL 08 03:06)?134 (JUL 07 17:32)?DBP?91 (JUL 08 08:33)?65 (JUL 07 11:30)?91 (JUL 08 08:33)?SpO2?96 (JUL 08 08:33)?93 (JUL 07 10:23)?98 (JUL 07 17:32)?O2?Room a (JUL 08 08:33)?Room a (JUL 07 10:23)?Room a (JUL 07 10:23)?Weight?79.4 (JUL 08 02:17)?79.4 (JUL 08 02:17)?79.4 (JUL 08 02:17)?? 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 Other Medications Medications (32) Active Scheduled: (32) aaMAR Note ??Use Sodium Phosphate unless.., UNSPECIFIED-See comments, Unscheduled aaMAR Note ??DC if...., UNSPECIFIED-See comments, Unscheduled cefOXitin 2000 mg SDV ??2,000 mg, IVPB, Unscheduled cetirizine 10 mg TAB ??10 mg 1 tab, By mouth, Daily clopidogrel 75 mg TAB ??75 mg 1 tab, By mouth, Daily docusate sod 100 mg CAP ??100 mg 1 cap, PO/per tube, BID DULoxetine 20 mg CAP ??20 mg 1 cap, By mouth, Daily ferrous sulfate 325 mg TAB ??325 mg 1 tab, By mouth, Daily folic acid 1 mg TAB ??1 mg 1 tab, By mouth, Daily furosemide 40 mg TAB ??40 mg 1 tab, By mouth, Daily gabapentin 100 mg CAP ??200 mg 2 cap, By mouth, TID guar gum (BeneFIBer/Nutrisource) 0.14 oz ??PACKET ??4 g 1 pkt, By mouth, Daily hydrALAZINE 50 mg TAB ??50 mg 1 tab, By mouth, BID insulin GLARgine (LanTUS) 100 units/mL 3ml Pen ??24 Units 0.24 mL, SubQ, QAM Insulin Lispro (HumaLOG) 100 units/mL 3 ml Pen ??Medium dose scale, SUBQ, With Meals & Bedtime Insulin Lispro (HumaLOG) 100 units/mL 3 ml Pen ??1 Unit per 8g carbs consumed, SubQ, TIDWM (three times a day with meals) lisinopril 40 mg TAB ??40 mg 1 tab, By mouth, Daily methotrexate *ANTINEO* 2.5 mg TAB ??20 mg 8 tab, By mouth, QMonday milk of magnesia 8% UD CUP 30 mL ??15 mL, By mouth, Daily multivitamin + minerals TAB ??1 tab, By mouth, Daily nicotine 21 mg PATCH ??21 mg 1 patch, TD, Daily nicotine 21 mg PATCH ??21 mg 1 patch, TD, Daily Nicotine Patch Removal Task ??1 EA, TD, QAM Nicotine Patch Removal Task ??1 EA, TD, QAM pantoprazole 40 mg TAB ??40 mg 1 tab, By mouth, at bedtime rivaroxaban 20 mg TAB ??20 mg 1 tab, By mouth, with supper senna 8.8 mg/5 mL syrup UD ORAL SYR/CUP 10 mL ??17.6 mg 10 mL, By mouth, at bedtime simvastatin 20 mg TAB ??20 mg 1 tab, By mouth, at bedtime sodium chloride 0.9% INJ SYR 5 mL ??5 mL, IVP, Q12H sotalol 120 mg TAB ??120 mg 1 tab, By mouth, Daily Sucralfate 1g Tab ??1 g 1 tab, By mouth, ACHS (before meals and at bedtime) tamsulosin 0.4 mg CAP ??0.4 mg 1 cap, By mouth, Daily Continuous: (0) Lab Results Labs??(Last two charted values on this encounter) WBC 11.8 ??(JUL 07) 11.3 ??(JUL 06) Hgb 10.3 ??(JUL 07) 10.2 ??(JUL 06) Hct 30.9 ??(JUL 07) 31.5 ??(JUL 06) Platelets 256 ??(JUL 07) 265 ??(JUL 06) Na 141 ??(JUL 07) 137 ??(JUL 06) K 4.1 ??(JUL 07) 4.3 ??(JUL 06) Cl 111 ??(JUL 07) 109 ??(JUL 06) CO2 23 ??(JUL 07) 22 ??(JUL 06) BUN 29 ??(JUL 07) 34 ??(JUL 06) Cr 1.10 ??(JUL 07) 1.38 ??(JUL 06) Ca ?7.9 ??(JUL 07) ?7.3 ??(JUL 06) Mag ?1.9 ??(JUL 05) ?? PT ?10.8 ??(JUL 04) ?? INR ?1.01 ??(JUL 04) ?? PTT 26 ??(JUL 04) ?? Bedside Glucose 163 ??(JUL 08) 143 ??(JUL 08) Glucose,Plasma 141 ??(JUL 07) 196 ??(JUL 06) Electronically signed by:Bonita Krishnan 07/08/23 08:49 * Yosef Jameson MD: PERFORM Event Display: Progress Notes Authored Date: Agree with above Patient seen and examined Continue current care and therapies Hopefully home tomorrrow Electronically signed by:Yosef Jameson MD 07/08/23 12:12 Surgical operation note * Event Display: Operative Report Authored Date: [id number] [facility] Name: YOLIS SU Admitted: 07/04/2023 : 1945 Provider: Yosef Jameson MD No: [id number] Unit: [id number] SURGEON: Yosef Jameson MD PREOPERATIVE DIAGNOSIS: Rest pain and nonhealing ulcerations of the right lower extremity. POSTOPERATIVE DIAGNOSIS: Rest pain and nonhealing ulcerations of the right lower extremity. PROCEDURE PERFORMED: 1. Re-do right groin dissection. 2. Right common femoral to below-knee popliteal bypass grafting with ring reinforced 6 mm polytetrafluoroethylene. CONSULTING MANAGER: Bonita Light PA-C. COMPLICATIONS: None. ANESTHESIA: General endotracheal anesthesia. ESTIMATED BLOOD LOSS: 800 cc. FLUIDS: 2400 cc crystalloid. URINE OUTPUT: 350 cc. INDICATION FOR PROCEDURE: This patient presents with rest pain and nonhealing ulceration of the right lower extremity. We are proceeding with bypass operation. He has undergone multiple operations. He has left above-knee amputation. We have had multiple discussions, and he was just starting to ambul ate with his prosthetic and become independent when he started to develop rest pain and ulcerationsof the right lower extremity. This is why we are proceeding with revascularization in this high-risk patient who has had multiple operations. All risks have been discussed as noted in his history andphysical, including bleeding and infection, along with and limb loss and failure, which is high. PROCEDURE IN DETAIL: The patient was taken the operating room, placed supine on the table. General anesthesia was induced, and we prepped and draped the right lower extremity in standard fashion. Bonita Light PA-C, was present and scrubbed and helped with all aspects of the procedure. We made a right groin incision. A significant amount of scar tissue was noted making this a difficult dissection. It was difficult to dissect out the profunda. Bleeding was noted. At the femoral vein, there was bleeding noted from the femoral vein, which was repaired with interrupted 5-0 Prolene. After much dissection, we were able to dissect out one of the old femoral-popliteal bypass grafts, obtained control of the femoral artery here, and performed a thrombectomy of the theodore of the graft, and then extendedup onto the common femoral artery. This was clamped. The patient was heparinized. We performed a running [id number] anastomosis with 6-0 Prolene. The graft was then tunneled after we made a popliteal incision. This was done below the knee. We dissected out the popliteal artery. A careful anastomosis was performed after tunneling the graft anatomically and performed an arteriotomy in the popliteal artery. We then performed our anastomosis with 6-0 Prolene. Distal sutures were placed. Biphasic signals were noted in the dorsalis pedis distribution. Protamine was given. Hemostasis was noted to be adequate. The wounds were then closed meticulously with 2-0 Vicryl and 3-0 Vicryl in interrupted fashion and 3-0 nylon in mattress fashion. A Duo Prevena dressing was placed. Sponge and needle counts were correct at the end of the case. There were no immediate complications. Yosef Jameson MD Voice Job ID#: [id number] AQuity Electronically signed by:Yosef Jameson MD 07/05/23 08:42 * Yosef Jameson MD: VERIFY, PERFORM, SIGN Event Display: Operative Report Authored Date: Patient: YOLIS SU Age: 78 years Sex: Male : 1945 Associated Diagnoses: None Author: Yosef Jameson MD Postoperative Information Preoperative Diagnosis: Preop Dx (ST) SN - GCD - Preop Diagnosis: Peripheral vascular disease (07/04/23 18:23:35). Postoperative Diagnosis: Postop Dx (ST) SN - GCD - Post Op Diagnosis: Peripheral vascular disease (07/04/23 18:23:35). Procedure: Procedure (ST) SN - SgP - Procedure: Bypass Graft Femoral to Popliteal Artery (07/04/23) SN - SgP - Modifiers: Right (07/04/23). Performed by: Primary Surgeon (ST) Surgeon - Primary: Yosef Jameson MD Stencil Sprayer: Physician's Stencil Sprayer (ST) Physician's Stencil Sprayer: Ross PA, Bonita C . Anesthetic Used: Anesthesia Type (ST) SN - SgP - Anesthesia Type: 3-General (07/04/23). Findings: biphasic signals in DP . Specimens Removed: Specimens (ST) No Specimens Taken. Estimated Blood Loss: 800 ml. Complications: None. Description of Techniques: Standard. Implants/Grafts: Implant (ST) SN - IL - Implant Description: GRFT STRETCH VASC TW [id number] (07/04/23). Final Count Verification: SN - FCV (ST) SN - FCV - Instruments (Count Correct): n/a (07/04/23 20:00:22) SN - FCV - Sharps/Wilson (Count Corre: Yes (07/04/23 20:00:22) SN - FCV - Sponges (Count Correct): Yes (07/04/23 20:00:22). Electronically signed by:Yosef Jameson MD 07/04/23 20:15 Cardiology * Brandon FRANKS, Emerson D: SIGN, VERIFY Event Display: EKG 12-Lead Authored Date: Patient Care team information Care Team Personnel Name: Bree Perkins MD Position: PX Physician - Family Practice Member Role: Primary Care Physician Address: Address: [address] Name: Robb Brewer MD Position: PX Physician - Oncologist Member Role: Oncologist Address: Address: [address] [place], [place] [id number] [place] [address] Name: Cintia Yung Position: Inpatient-Midlevel Member Role: Nurse Practitioner Address: Address: [address] [place] [address]- Name: Zuri Salas RN Position: Nurse ([facility]) Member Role: Nurse Practitioner Address: Address: [address] Name: Marisol Guzman Position: Inpatient-Midlevel Member Role: Nurse Practitioner Address: Address: [address] Care Team Related Persons Name: EVELIO SU Name: EVELIO SU Name: TEE SU Name: TEE SU Name: FORTUNATO SU Name: FORTUNATO SU
--- OUTSIDE RECORDS SUMMARY | 2023-10-21 15:28 | XMS_ITS | Continuity of Care Document ---
Author Name Unknown Organization [facility] Address [address] [place] [address]- Care Team Providers Care Manager Clinic Name Role Phone Bree Perkins MD Primary Care Physician [phone] [facility] [place] Number [id number] Date(s): 06/20/23 - 06/21/23 [facility] [address], [place] [address] [phone] Encounter Diagnosis Bladder cancer(Discharge Diagnosis) - 06/20/23 BPH with urinary obstruction(Discharge Diagnosis) - 06/20/23 Other obstructive and reflux uropathy(Discharge Diagnosis) - 06/20/23 Discharge Disposition: .Discharge to Home (Routine) Attending Physician: Du Moreno MD Admitting Physician: Du Moreno MD Allergies, Adverse Reactions, Alerts No Known Allergies Assessment and Plan Extracted from: Title:Instructions to Patients Author:Carol Farris RN Date:06/21/23 [facility] How to Prevent Constipation After Surgery Constipation [...] movement. ? ? Having hard, dry, or dfapnk-dhin-abfckm stools (feces). ? ? Discomfort in the [...] as fried or sweet foods. These include surinamese fries, hamburgers, cookies, and candy. ? ? [...] use the restroom. Medicines ? ? Take oihq-uub-zbsfnkt and prescription medicines only as told by [...] softeners or laxatives, to help prevent constipation. This information is not intended to replace advice given to you by your health care provider. Make sure you discuss any questions you have with your health care provider. Document Revised: 07/20/2020 Document Reviewed: 07/20/2020 [employer] Patient Education ?? 2021 [employer]. General Anesthesia, Adult, Care After This sheet gives you information about how to care for yourself after your procedure. Your health care provider may also give you more specific instructions. If you have problems or questions, contact your health care provider. What can I expect after the procedure? After the procedure, the following side effects are common: ? ? Pain or discomfort at the IV site. ? ? Nausea. ? ? Vomiting. ? ? Sore throat. ? ? Trouble concentrating. ? ? Feeling cold or chills. ? ? Feeling weak or tired. ? ? Sleepiness and fatigue. ? ? Soreness and body aches. These side effects can affect parts of the body that were not involved in surgery. Follow these instructions at home: For the time period you were told by your health care provider: ? ? Rest. ? ? Do not participate in activities where you could fall or become injured. ? ? Do not drive or use machinery. ? ? Do not drink alcohol. ? ? Do not take sleeping pills or medicines that cause drowsiness. ? ? Do not make important decisions or sign legal documents. ? ? Do not take care of children on your own. Eating and drinking ? ? Follow any instructions from your health care provider about eating or drinking restrictions. ? ? When you feel hungry, start by eating small amounts of foods that are soft and easy to digest (bland), such as toast. Gradually return to your regular diet. ? ? Drink enough fluid to keep your urine pale yellow. ? ? If you vomit, rehydrate by drinking water, juice, or clear broth. General instructions ? ? If you have sleep apnea, surgery and certain medicines can increase your risk for breathing problems. Follow instructions from your health care provider about wearing your sleep device: ? ? Anytime you are sleeping, including during daytime naps. ? ? While taking prescription pain medicines, sleeping medicines, or medicines that make you drowsy. ? ? Have a responsible adult stay with you for the time you are told. It is important to have someone help care for you until you are awake and alert. ? ? Return to your normal activities as told by your health care provider. Ask your health care provider what activities are safe for you. ? ? Take bjhe-mst-wnxvxxt and prescription medicines only as told by your health care provider. ? ? If you smoke, do not smoke without supervision. ? ? Keep all follow-up visits as told by your health care provider. This is important. Contact a health care provider if: ? ? You have nausea or vomiting that does not get better with medicine. ? ? You cannot eat or drink without vomiting. ? ? You have pain that does not get better with medicine. ? ? You are unable to pass urine. ? ? You develop a skin rash. ? ? You have a fever. ? ? You have redness around your IV site that gets worse. Get help right away if: ? ? You have difficulty breathing. ? ? You have chest pain. ? ? You have blood in your urine or stool, or you vomit blood. Summary ? ? After the procedure, it is common to have a sore throat or nausea. It is also common to feel tired. ? ? Have a responsible adult stay with you for the time you are told. It is important to have someone help care for you until you are awake and alert. ? ? When you feel hungry, start by eating small amounts of foods that are soft and easy to digest (bland), such as toast. Gradually return to your regular diet. ? ? Drink enough fluid to keep your urine pale yellow. ? ? Return to your normal activities as told by your health care provider. Ask your health care provider what activities are safe for you. This information is not intended to replace advice given to you by your health care provider. Make sure you discuss any questions you have with your health care provider. Document Revised: 05/18/2021 Document Reviewed: 12/15/2020 [employer] Online [employer] Patient Education ?? 2021 [employer] Transurethral Resection of Bladder Tumor, Care After This sheet gives you information about how to care for yourself after your procedure. Your health care provider may also give you more specific instructions. If you have problems or questions, contact your health care provider. What can I expect after the procedure? After the procedure, it is common to have: ? ? A small amount of blood in your urine for up to 2 weeks. ? ? Soreness or mild pain from your catheter. After your catheter is removed, you may have mild soreness, especially when urinating. ? ? Pain in your lower abdomen. Follow these instructions at home: Medicines ? ? Take wzky-glf-gcholpl and prescription medicines only as told by your health care provider. ? ? If you were prescribed an antibiotic medicine, take it as told by your health care provider. Do not stop taking the antibiotic even if you start to feel better. ? ? Do not drive for 24 hours if you were given a sedative during your procedure. ? ? Ask your health care provider if the medicine prescribed to you: ? ? Requires you to avoid driving or using heavy machinery. ? ? Can cause constipation. You may need to take these actions to prevent or treat constipation: ? ? Take fnpw-qok-dfjbuxw or prescription medicines. ? ? Eat foods that are high in fiber, such as beans, whole grains, and fresh fruits and vegetables. ? ? Limit foods that are high in fat and processed sugars, such as fried or sweet foods. Activity ? ? Return to your normal activities as told by your health care provider. Ask your health care provider what activities are safe for you. ? ? Do not lift anything that is heavier than 10 lb (4.5 kg), or the limit that you are told, until your health care provider says that it is safe. ? ? Avoid intense physical activity for as long as told by your health care provider. ? ? Rest as told by your health care provider. ? ? Avoid sitting for a long time without moving. Get up to take short walks every 1? 2 hours. This is important to improve blood flow and breathing. Ask for help if you feel weak or unsteady. General instructions ? ? Do not drink alcohol for as long as told by your health care provider. This is especially important if you are taking prescription pain medicines. ? ? Do not take baths, swim, or use a hot tub until your health care provider approves. Ask your health care provider if you may take showers. You may only be allowed to take sponge baths. ? ? If you have a catheter, follow instructions from your health care provider about caring for your catheter and your drainage bag. ? ? Drink enough fluid to keep your urine pale yellow. ? ? Wear compression stockings as told by your health care provider. These stockings help to prevent blood clots and reduce swelling in your legs. ? ? Keep all follow-up visits as told by your health care provider. This is important. ? ? You will need to be followed closely with regular checks of your bladder and urethra (cystoscopies) to make sure that the cancer does not come back. Contact a health care provider if: ? ? You have pain that gets worse or does not improve with medicine. ? ? You have blood in your urine for more than 2 weeks. ? ? You have cloudy or bad-smelling urine. ? ? You become constipated. Signs of constipation may include having: ? ? Fewer than three bowel movements in a week. ? ? Difficulty having a bowel movement. ? ? Stools that are dry, hard, or larger than normal. ? ? You have a fever. Get help right away if: ? ? You have: ? ? Severe pain. ? ? Bright red blood in your urine. ? ? Blood clots in your urine. ? ? A lot of blood in your urine. ? ? Your catheter has been removed and you are not able to urinate. ? ? You have a catheter in place and the catheter is not draining urine. Summary ? ? After your procedure, it is common to have a small amount of blood in your urine, soreness or mild pain from your catheter, and pain in your lower abdomen. ? ? Take pjbc-egc-vvzhngy and prescription medicines only as told by your health care provider. ? ? Rest as told by your health care provider. Follow your health care provider's instructions about returning to normal activities. Ask what activities are safe for you. ? ? If you have a catheter, follow instructions from your health care provider about caring for your catheter and your drainage bag. ? ? Get help right away if you cannot urinate, you have severe pain, or you have bright red blood or blood clots in your urine. This information is not intended to replace advice given to you by your health care provider. Make sure you discuss any questions you have with your health care provider. Document Revised: 04/02/2019 Document Reviewed: 04/02/2019 Elsevier Patient Education ?? 2021 [employer]. Medication Leaflets: Accessing??[employer]??Express??Patient??Portal Access medications, test results, radiology reports, and more through [employer] secure patient portal. Please be patient if waiting on lab results, as these can take several days to process. [place] online at??[email or web address]??Use your community medical record number (CMRN) located below to verify your identity on the Self-Enrollment form.We also offer the ability for you to securely connect other health management apps to your health record. See the [facility] Connection link on the website above for more details. Watch [employer] Patient Education Videos and Access Resources anytime online! Visit [email or web address] [email or web address] Appointment Date:02/27/2024 10:15:00 AM Scheduled Provider:Bree Perkins MD Location:[facility] Appointment Type:Established Patient Future Scheduled Tests Radiology* CT Angio Aorto Iliofemoral w Run off 06/25/23 * US VL Duplex Arterial LE Left 11/19/22 [...] Not Available 2Location History: [facility] 3Location History: [place], [place] Medications amLODIPine 10 mg oral tablet 10 mg = 1 tab, By mouth, Daily, # 30 tab, Refill(s) 0 Start Date: 05/29/23 Status: Ordered B-D PEN NDL OZZY [id number]() GRN See Instructions, USE WITH LANTUS AND NOVOLOG., # 100 Unknown Unit, Refill(s) 5, Pharmacy: [facility], Powered by [facility], [id number], Instructions Replace Required Details, USE WITH LANTUS AND NOVOLOG. Start Date: 02/06/18 Status: Ordered Centrum Ultra Men's oral tablet By mouth, Daily, Last dose 06-12-23, Refill(s) 0 Start Date: 02/20/23 Status: Ordered cetirizine 10 mg oral tablet See Instructions, TAKE 1 TABLET BY MOUTH AT BEDTIME, # 30 tab, Refill(s) 2, Pharmacy: [facility], [id number], Instructions Replace Required Details, TAKE 1 TABLET BY MOUTH AT BEDTIME, 69.09, 02/22/23 10:40:00 CDT, kg... Start Date: 04/02/23 Status: Ordered DULoxetine 20 mg oral delayed release capsule = 1 cap, By mouth, Daily, # 90 cap, Refill(s) 0, Pharmacy: [facility], [id number], Take 1 capsule by mouth once daily, 75, 06/03/23 10:32:00 CDT, kg, Weight (kg) (Clinical) Start Date: 06/03/23 Status: Ordered Enbrel 25 mg subcutaneous kit 25 mg = 1 EA, SubQ, QW (once a week), # 12 EA, Refill(s) 0 Start Date: 02/22/23 Status: Ordered ferrous sulfate By mouth, Refill(s) 0 Start Date: 05/29/23 Status: Ordered folic acid 1 mg oral tablet 1 mg = 1 tab, By mouth, Daily, # 90 tab, Refill(s) 2, Pharmacy: [facility], [id number], TAB, 1 tab By mouth Daily, 69.09, 02/22/23 10:40:00 CDT, kg, Weight (kg) (Clinical) Start Date: 03/22/23 Status: Ordered FREESTYLE SUNNY 2 SENSOR FREESTYLE SUNNY 2 SENSOR, See Instructions, USE DIRECTED., # 1 EA, Refills(s) 5, Route to Pharmacy Electronically, [facility]acy: [id number], USE DIRECTED., 78.64, 05/17/22 9:13:00 CDT, kg, Weight Start Date: 10/01/22 Status: Ordered Freestyle Sunny monitor/sensors Freestyle Sunny monitor/sensors, See Instructions, E 11.9 Insulin dependent diabetes, # 1 EA, Refills(s) 0, Route to Pharmacy Electronically, Pharmacy: [facility][id number], E 11.9; Insulin dependent diabetes, Supply, 78.64, 05/17/22 9:13:... Start Date: 08/27/22 Status: Ordered gabapentin 100 mg oral capsule 200 mg = 2 cap, By mouth, TID, # 540 cap, Refill(s) 6, Pharmacy: [facility], [id number], CAP, 2 cap By mouth TID, 75, 06/03/23 10:32:00 CDT, kg, Weight (kg) (Clinical) Start Date: 06/03/23 Status: Ordered hydrALAZINE 50 mg oral tablet 50 mg = 1 tab, By mouth, TID Start Date: 04/18/21 Status: Ordered LanTUS 100 [...] Daily, # 30 tab, Refill(s) 4, Pharmacy: [facility], [id number], TAB, 1 tab By mouth Daily, 69.09, 02/22/23 10:40:00 CDT, kg, Weight (kg) (Clinical) Start Date: 03/08/23 Status: Ordered Medical scooter Medical scooter, See Instructions, LLE pain; Post-operative status; Being scheduled for BKA, # 1 EA, Refills(s) 0, Print Requisition, Supply Start Date: 01/11/23 Status: Ordered metformin 500 mg oral tablet = 1 tab, By mouth, BID, # 180 tab, Refill(s) 0, Pharmacy: [facility], [id number], 1 tab By mouth BID, 69.09, 02/22/23 10:40:00 CDT, kg, Weight (kg) (Clinical) Start Date: 04/02/23 Status: Ordered methotrexate 2.5 mg oral tablet TAKE 8 TABLETS BY MOUTH ONCE A WEEK Start Date: 02/22/23 Status: Ordered nitroglycerin 0.4 [...] Required Details Start Date: 02/07/23 Status: Ordered pantoprazole 40 mg oral delayed release tablet 40 mg = 1 tab, By mouth, at bedtime, # 30 tab, Refill(s) 0 Start Date: 05/29/23 Status: Ordered potassium chloride 10 mEq oral capsule, extended release 20 mEq = 2 cap, By mouth, BID, with lasix Start Date: 10/12/22 Status: Ordered senna (sennosides) 8.6 mg oral tablet 17.2 mg = 2 tab, By mouth, at bedtime, PRN for constipation, # 100 tab, Refill(s) 0 Start Date: 02/14/23 Status: Ordered simvastatin 20 mg oral tablet = 1 tab, By mouth, at bedtime, # 90 tab, Refill(s) 0, Pharmacy: [facility], [id number], TAKE 1 TABLET BY MOUTH AT BEDTIME, 75, 06/03/23 10:32:00 CDT, kg, Weight (kg) (Clinical) Start Date: 06/10/23 Status: Ordered sotalol 120 mg oral tablet 120 mg = 1 tab, By mouth, BID, # 60 tab, Refill(s) 3, other, TAB Start Date: 06/03/23 Status: Ordered sucralfate 1 g oral tablet = 1 tab, By mouth, QID, # 360 tab, Refill(s) 0, Pharmacy: [facility] #[id number], [id number], TAKE 1 TABLET BY MOUTH FOUR TIMES DAILY, 78.64, 05/17/22 9:13:00 CDT, kg, Weight Start Date: 06/01/22 Status: Ordered tamsulosin 0.4 mg oral capsule 0.4 mg = 1 cap, By mouth, Daily, # 90 cap, Refill(s) 3, Pharmacy: [facility], [id number], CAP, 1 cap By mouth Daily, 69.09, 04/02/23 13:57:00 CDT, kg, Weight (kg) (Clinical) Start Date: 05/28/23 Status: Ordered Problem List Condition Confirmation Course Effective Dates Status Health Status Informant Abdominal pain Confirmed Active Abrasion of knee, left Confirmed Active Non-ST elevation [place] (NSTEMI) Confirmed Active Allergic dermatitis Confirmed Active Anemia Confirmed Active 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 4[facility] [place] 5Moderate to severe bilateral lateral recess [...] intravenous ultrasound of the right iliac/aorta at [facility]. 7Stent x 2 RCA, angioplasty of prior stent 8Resolute [place] Stent 3mmx38 mm 9Dr. Contreras 10Right leg12 11Legs 12Disk repair Results Laboratory List Name Date PT/INR 06/20/23 PTT 06/20/23 Most recent to oldest [Reference Range]: 1 2 3 Bedside Glucose 398 mg/dL 1 (06/21/23 11:00 AM) 194 mg/dL 2 (06/21/23 7:27 AM) 333 mg/dL 3 (06/20/23 9:06 PM) PTT [22-33 sec] 26 sec (06/20/23 7:49 AM) PT [9.0-13.5 sec] 10.9 sec (06/20/23 7:49 AM) INR [0.80-1.30] 1.02 (06/20/23 7:49 AM) 1Result Comment: Notify RN/DR Performed at:[address], [id number] Reference Ranges: Age 0 - 24 hours: 45 - 115 mg/dL Age 24 hours - 30 days: 55 - 115 mg/dL Age > 30 days: 70 - 100 mg/dL Critical Results Requiring Immediate Notification: Age <72 Hours: <40 or >350 mg/dL Age >72 Hours: <50 or >400 mg/dL 2Result Comment: Notify RN/ Performed at:[address], [address] Reference Ranges: Age 0 - 24 hours: 45 - 115 mg/dL Age 24 hours - 30 days: 55 - 115 mg/dL Age > 30 days: 70 - 100 mg/dL Critical Results Requiring Immediate Notification: Age <72 Hours: <40 or >350 mg/dL Age >72 Hours: <50 or >400 mg/dL 3Result Comment: Notify RN/ Performed at:[address], [address] Reference Ranges: Age 0 - 24 hours: 45 - 115 mg/dL Age 24 hours - 30 days: 55 - 115 mg/dL Age > 30 days: 70 - 100 mg/dL Critical Results Requiring Immediate Notification: Age <72 Hours: <40 or >350 mg/dL Age >72 Hours: <50 or >400 mg/dL Vital Signs Most recent to oldest [Reference Range]: 1 2 3 Blood Pressure 163/64 (06/21/23 11:02 AM) Blood Pressure 155/83mmHg (06/21/23 7:24 AM) 135/70mmHg (06/21/23 4:36 AM) Height (inches) (Clinical) 68 in (06/21/23 2:00 AM) 68 in (06/20/23 12:48 PM) 68 in (06/20/23 8:18 AM) Weight (kg) (Clinical) 75 kg (06/20/23 12:48 PM) 75 kg (06/20/23 7:39 AM) BMI (Clinical) 25.1 kg/m2 (06/20/23 12:48 PM) 0 kg/m2 (06/20/23 8:18 AM) 25.1 kg/m2 (06/20/23 7:39 AM) Scale Type Bed (06/20/23 7:39 AM) Social History Social History Type Response Smoking [...] MRI Safety Implantable Status Assigning Authority Unknown [id number] Unknown Unknown 01/08/26 Unknown Unknown Active Unknown Hospital Discharge Instructions Patient Education 06/21/2023 10:41:38 How to Prevent Constipation After Surgery How to Prevent Constipation After Surgery Constipation [...] bowel movement. ??? Having hard, dry, or prfqpz-itqr-qmbyeu stools (feces). ??? Discomfort in the lower [...] as fried or sweet foods. These include surinamese fries, hamburgers, cookies, and candy. ??? Take [...] you use the restroom. Medicines ??? Take kfum-vvy-fahozzy and prescription medicines only as told by [...] softeners or laxatives, to help prevent constipation. This information is not intended to replace advice given to you by your health care provider. Make sure you discuss any questions you have with your health care provider. Document Revised: 07/20/2020 Document Reviewed: 07/20/2020 [employer] Patient Education ?? 2021 [employer]. 06/21/2023 10:41:38 General Anesthesia, Adult, Care After General Anesthesia, Adult, Care After This sheet gives you information about how to care for yourself after your procedure. Your health care provider may also give you more specific instructions. If you have problems or questions, contact your health care provider. What can I expect after the procedure? After the procedure, the following side effects are common: ??? Pain or discomfort at the IV site. ??? Nausea. ??? Vomiting. ??? Sore throat. ??? Trouble concentrating. ??? Feeling cold or chills. ??? Feeling weak or tired. ??? Sleepiness and fatigue. ??? Soreness and body aches. These side effects can affect parts of the body that were not involvedin surgery. Follow these instructions at home: For the time period you were told by your health care provider: ??? Rest. ??? Do not participate in activities where you could fall or become injured. ??? Do not drive or use machinery. ??? Do not drink alcohol. ??? Do not take sleeping pills or medicines that cause drowsiness. ??? Do not make important decisions or sign legal documents. ??? Do not take care of children on your own. Eating and drinking ??? Follow any instructions from your health care provider about eating or drinking restrictions. ??? When you feel hungry, start by eating small amounts of foods that are soft and easy to digest (bland), such as toast. Gradually return to your regular diet. ??? Drink enough fluid to keep your urine pale yellow. ??? If you vomit, rehydrate by drinking water, juice, or clear broth. General instructions ??? If you have sleep apnea, surgery and certain medicines can increase your risk for breathing problems. Follow instructions from your health care provider about wearing your sleep device: ??? Anytime you are sleeping, including during daytime naps. ??? While taking prescription pain medicines, sleeping medicines, or medicines that make you drowsy. ??? Have a responsible adult stay with you for the time you are told. It is important to have someone help care for you until you are awake and alert. ??? Return to your normal activities as told by your health care provider. Ask your health care provider what activities are safe for you. ??? Take iaiq-psz-sqpmlil and prescription medicines only as told by your health care provider. ??? If you smoke, do not smoke without supervision. ??? Keep all follow-up visits as told by your health care provider. This is important. Contact a health care provider if: ??? You have nausea or vomiting that does not get better with medicine. ??? You cannot eat or drink without vomiting. ??? You have pain that does not get better with medicine. ??? You are unable to pass urine. ??? You develop a skin rash. ??? You have a fever. ??? You have redness around your IV site that gets worse. Get help right away if: ??? You have difficulty breathing. ??? You have chest pain. ??? You have blood in your urine or stool, or you vomit blood. Summary ??? After the procedure, it is common to have a sore throat or nausea. It is also common to feel tired. ??? Have a responsible adult stay with you for the time you are told. It is important to have someone help care for you until you are awake and alert. ??? When you feel hungry, start by eating small amounts of foods that are soft and easy to digest (bland), such as toast. Gradually return to your regular diet. ??? Drink enough fluid to keep your urine pale yellow. ??? Return to your normal activities as told by your health care provider. Ask your health care provider what activities are safe for you. This information is not intended to replace advice given to you by your health care provider. Make sure you discuss any questions you have with your health care provider. Document Revised: 05/18/2021 Document Reviewed: 12/15/2020 T.H.E. Medical Patient Education ?? 2021 [employer]. [employer] 06/21/2023 10:41:38 Transurethral Resection of Bladder Tumor, Care After Transurethral Resection of Bladder Tumor, Care After This sheet gives you information about how to care for yourself after your procedure. Your health care provider may also give you more specific instructions. If you have problems or questions, contact your health care provider. What can I expect after the procedure? After the procedure, it is common to have: ??? A small amount of blood in your urine for up to 2 weeks. ??? Soreness or mild pain from your catheter. After your catheter is removed, you may have mild soreness, especially when urinating. ??? Pain in your lower abdomen. Follow these instructions at home: Medicines ??? Take kepz-iol-hqquwnx and prescription medicines only as told by your health care provider. ??? If you were prescribed an antibiotic medicine, take it as told by your health care provider. Donot stop taking the antibiotic even if you start to feel better. ??? Do not drive for 24 hours if you were given a sedative during your procedure. ??? Ask your health care provider if the medicine prescribed to you: ??? Requires you to avoid driving or using heavy machinery. ??? Can cause constipation. You may need to take these actions to prevent or treat constipation: ??? Take kwte-khf-euzvrnd or prescription medicines. ??? Eat foods that are high in fiber, such as beans, whole grains, and fresh fruits and vegetables. ??? Limit foods that are high in fat and processed sugars, such as fried or sweet foods. Activity ??? Return to your normal activities as told by your health care provider. Ask your health care provider what activities are safe for you. ??? Do not lift anything that is heavier than 10 lb (4.5 kg), or the limit that you are told, untilyour health care provider says that it is safe. ??? Avoid intense physical activity for as long as told by your health care provider. ??? Rest as told by your health care provider. ??? Avoid sitting for a long time without moving. Get up to take short walks every 1???2 hours. This is important to improve blood flow and breathing. Ask for help if you feel weak or unsteady. General instructions ??? Do not drink alcohol for as long as told by your health care provider. This is especially important if you are taking prescription pain medicines. ??? Do not take baths, swim, or use a hot tub until your health care provider approves. Ask your health care provider if you may take showers. You may only be allowed to take sponge baths. ??? If you have a catheter, follow instructions from your health care provider about caring for your catheter and your drainage bag. ??? Drink enough fluid to keep your urine pale yellow. ??? Wear compression stockings as told by your health care provider. These stockings help to prevent blood clots and reduce swelling in your legs. ??? Keep all follow-up visits as told by your health care provider. This is important. ??? You will need to be followed closely with regular checks of your bladder and urethra (cystoscopies) to make sure that the cancer does not come back. Contact a health care provider if: ??? You have pain that gets worse or does not improve with medicine. ??? You have blood in your urine for more than 2 weeks. ??? You have cloudy or bad-smelling urine. ??? You become constipated. Signs of constipation may include having: ??? Fewer than three bowel movements in a week. ??? Difficulty having a bowel movement. ??? Stools that are dry, hard, or larger than normal. ??? You have a fever. Get help right away if: ??? You have: ??? Severe pain. ??? Bright red blood in your urine. ??? Blood clots in your urine. ??? A lot of blood in your urine. ??? Your catheter has been removed and you are not able to urinate. ??? You have a catheter in place and the catheter is not draining urine. Summary ??? After your procedure, it is common to have a small amount of blood in your urine, soreness or mild pain from your catheter, and pain in your lower abdomen. ??? Take fuhw-ywm-zlsmpne and prescription medicines only as told by your health care provider. ??? Rest as told by your health care provider. Follow your health care provider's instructions about returning to normal activities. Ask what activities are safe for you. ??? If you have a catheter, follow instructions from your health care provider about caring for your catheter and your drainage bag. ??? Get help right away if you cannot urinate, you have severe pain, or you have bright red blood or blood clots in your urine. This information is not intended to replace advice given to you by your health care provider. Make sure you discuss any questions you have with your health care provider. Document Revised: 04/02/2019 Document Reviewed: 04/02/2019 [employer] Patient Education ?? 2021 [employer]. Follow Up Care 06/10/2023 12:45:16 With:Du Moreno Address: [address] [place] [id number] [facility] (1 When:3 to 5 days Comments:Office will pt about follow up appointment. Reason for Referral , [facility] Referred by: Karan Mohr DO Surgical operation note * Du Moreno MD: MODIFY, SIGN, MODIFY, SIGN, PERFORM, SIGN, VERIFY Event Display: Operative Report Authored Date: Patient: YOLIS SU Age: 78 years Sex: Male : 1945 Associated Diagnoses: None Author: Du Moreno MD Postoperative Information Preoperative Diagnosis: Multiple bladder tumors, medium and small, history of recurrent bladder cancer treated elsewhere. 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 Procedure: Cystoscopy, bilateral retrograde pyelograms, trans urethral incision of prostate, TURBT of multiple medium and small bladder tumors , Largest bladder tumor 3 cm. Performed by: Primary Surgeon (ST) No Primary Surgeon Found . Anesthetic Used: General. Findings: Multiple bladder tumors. Specimens Removed: Specimens (ST) No Specimens Taken, Bladder tumors. Estimated Blood Loss: 20 ml. Complications: None. Description of Techniques: Cystoscopy was performed with a 21 Surinamese scope with 30 degree lens, revealing a normal urethra and sphincter, prostate revealed relatively small lateral lobes but a very high bladder neck making access to the bladder very difficult with the rigid scope, such that there was significant fixation of the scope upon entering the bladder such that I could not reach all of the evident bladder tumors. Bilateral retrograde pyelograms were performed with radiopaque contrast instilled through a Boyers catheter inserted into each ureter revealing J hooking of the distal ureters but no intrinsic abnormalities otherwise. There approximately 12 small to medium-sized mostly relatively flat bladder tumor scattered throughout the bladder including the trigone. The ureters however were not involved. A 26 Surinamese resectoscope sheath with visual obturator inserted per urethra up to the bladder neck but could not be advanced all the way into the bladder because the very high bladder neck and ablation. Used a TURIS button vaporization device to perform trans urethral incision of the prostate from around the 5-7 o'clock positions through the bladder neck and distally to the verumontanum a with excellent hemostasis associated with that portion of the procedure Thereafter the TURIS resectoscope loop was used to resect all of the aforementioned bladder tumors, some of the smaller lesions were vaporized, the others resected, resecting as deeply as possible while avoiding perforation of the bladder. Hemostasis was gained with cautery and was excellent. There was no significant bleeding from the bladder neck resection area. After reinspection revealed no additional findings the scope was removed after the tissue pieces had been removed and forwarded to pathology. A [address] Meléndez catheter was placed per urethra into the bladder which was drained, then the irrigation port was plugged and the mitomycin 40 cc solution was instilled into the bladder and the catheter was plugged with planned drainage 1 hour later and with initiation of continuous bladder irrigation thereafter. The procedure was ended. Implants/Grafts: Implant (ST) No Implants/Grafts Used. Final Count Verification: SN - FCV (ST) No final counts done. Electronically signed by:Du Moreno MD 06/20/23 07:32 Electronically cosigned by: Du Moreno MD 06/20/23 14:06 Electronically cosigned by: Du Moreno MD 06/20/23 14:10 Cardiology * Emerson Taylor MD D: SIGN, VERIFY Event Display: EKG 12-Lead Authored Date: Laboratory * Katerin Sanchez: PERFORM Katerin Sanchez: PERFORM Yosef Maldonado MD: VERIFY Event Display: Clinical Information Authored Date: Bladder cancer * Katerin Sanchez: PERFORM Katerin Sanchez: PERFORM Yosef Maldonado MD: VERIFY Event Display: Source of Tissue Authored Date: Bladder tumor * Yosef Maldonado MD: TRANSCRIBE, PERFORM, VERIFY Event Display: Diagnosis Authored Date: Bladder, biopsy: - Papillary urothelial carcinoma, low-grade (expander) - Lamina propria invasion not present - Muscularis propria present Code3 Verified by: Yosef Maldonado M.D. Pathologist (Electronic Signature) 06/21/23 13:59 * Katerin Sanchez: PERFORM Katerin Sanchez: PERFORM Yosef Maldonado MD: VERIFY Event Display: Gross Description Authored Date: Received in formalin labeled Sheets, bladder tumor and consists of multiple pale [place] irregular fragments of soft tissue consistent with transurethral resection of the bladder aggregating 1.3 x 0.8 x 0.3 cm. Filtered and submitted in toto in cassette A1. KG/tpm Patient Care team information Care Team Personnel Name: Bree Perkins MD Position: PX Physician - Family Practice Member Role: Primary Care Physician Address: Address: [address] Name: Robb Brewer MD Position: PX Physician - Oncologist Member Role: Oncologist Address: Address: [address] [place] [address]- Name: Cintia Yung Position: Inpatient-Midlevel Member Role: Nurse Practitioner Address: Address: [address] [place] [address]- Name: Zuri Salas Position: Nurse ([facility]) Member Role: Nurse Practitioner Address: Address: [address] [place] [address]- [place] Name: Marisol Guzman Position: Inpatient-Midlevel Member Role: Nurse Practitioner Address: Address: [address] [place] [address]- Name: Afshan Deleon RN Position: Nurse ([facility]) Member Role: Nurse Name: Nanette Gibson RN Position: Nurse ([facility]) Member Role: Nurse Care Team Related Persons Name: EVELIO SU Name: SHARLENE EVELIO Name: SHEETSTEE Name: TEE SU Name: SHEETS, FORTUNATO Name: SHEETS, FORTUNATO
--- NOTE | 2023-10-21 15:32 | P.HP_ITS ---
Providers/Chief Complaint 2 Admitting Physician: Art Mays M.D Primary Care Provider: Bree Perkins MD Chief Complaint: Heart cath History of Present Illness Ashvin Hickey is a 78 year old male with past medical history of CAD, atrial fibrillation on Xarelto held yesterday, PAD s/p BKA who made urgent appointment to office secondary to worsening chest pain symptoms. According to patient and family has been taking multiple nitros since last week. Get substernal severe chest pain radiating to the arm and the jaw. He was seen in the ER as well. ACS was ruled out and he was discharged to have outpatient cardiology follow-up. Continues having worsening symptoms. EKG shows atrial fibrillation with non- specific ST T wave changes. Review of Systems 2 Const: Denies: fever(s) or chills Card: Reports: chest pain (discomfort) and dyspnea on exertion; Denies: palpitations, irregular heart rhythm, edema, swelling of feet/ankles, lightheadedness, syncope, pre-syncope, orthopnea or leg pain with exertion Resp: Reports: dyspnea; Denies: productive cough or non-productive cough Musc: Denies: neck pain (right side) or back pain Neuro: Denies: headache(s) or dizziness Psych: Denies: anxiety, depression, suicidal ideation or homicidal ideation Stanislav/Lymph: Reports: easy bruising and easy bleeding Medications/Allergies Home Medications Medication Instructions Recorded Confirmed Last Taken Type ferrous sulfate 325 mg (65 mg 325 mg PO QAM 02/10/20 10/21/23 09/13/22 07:00 History iron) tablet pantoprazole 40 mg tablet,delayed 40 mg PO BID 07/05/20 10/21/23 10/18/23 History release duloxetine 20 mg capsule,delayed 20 mg PO QAM 11/29/20 10/21/23 10/18/23 History release (Cymbalta) clopidogrel 75 mg tablet (Plavix) 75 mg PO QAM 03/09/21 10/21/23 10/18/23 History pen needle, diabetic 32 gauge x #400 ea 05/24/21 10/21/23 Unknown Rx (TechLITE Pen Needle) simvastatin 20 mg tablet 20 mg PO QPM #30 tabs 12/12/21 10/21/23 10/17/23 Rx triamcinolone acetonide 0.1 % 1 applic topical TID PRN Rash 12/12/21 10/21/23 Unknown History topical cream tamsulosin 0.4 mg capsule 0.4 mg PO QPM #90 caps 12/15/21 10/21/23 10/17/23 Rx folic acid 1 mg tablet 1 mg PO QAM 06/28/22 10/21/23 10/18/23 History furosemide 20 mg tablet (Lasix) 20 mg PO BID 06/28/22 10/21/23 10/18/23 History sucralfate 1 gram tablet 1 g PO QID PRN UNKNOWN 07/12/22 10/21/23 09/12/22 20:00 History hydralazine 50 mg tablet 50 mg PO BID #180 tabs 10/12/22 10/21/23 10/18/23 Rx etanercept 50 mg/mL (1 mL) 50 mg SUBCUT Q7D 12/27/22 10/21/23 10/11/23 History subcutaneous pen injector (Enbrel SureClick) rivaroxaban 20 mg tablet (Xarelto) 20 mg PO BEDTIME #90 tabs 02/18/23 10/21/23 10/17/23 Rx lisinopril 40 mg tablet 40 mg PO QAM 02/20/23 10/21/23 10/18/23 History sotalol 80 mg tablet 120 mg (1.5 x 80 mg) PO BID #180 06/27/23 10/21/23 10/18/23 Rx tabs gabapentin 100 mg capsule 200 mg PO TID 08/21/23 10/21/23 10/18/23 History insulin glargine 100 unit/mL (3 20 unit SUBCUT BID 08/21/23 10/21/23 10/18/23 History mL) subcutaneous pen (Lantus 20 units Solostar U-100 Insulin) metformin 500 mg tablet 500 mg PO BID 08/21/23 10/21/23 10/18/23 History methotrexate sodium 2.5 mg tablet 20 mg PO Q7D 08/21/23 10/21/23 10/14/23 History acetaminophen 500 mg tablet 500 mg PO Q6H PRN Pain 10/18/23 10/21/23 Unknown History cetirizine 10 mg tablet 10 mg PO BEDTIME allergy symptoms 10/18/23 10/21/23 10/17/23 History insulin aspart U-100 100 unit/mL See Rx Instructions .Route .COMPLEX 10/18/23 10/21/23 10/18/23 History (3 mL) subcutaneous pen (Novolog 20 units FlexPen U-100 Insulin aspart) nitroglycerin 0.4 mg sublingual 0.4 mg sublingual Q5M PRN Chest 10/18/23 10/21/23 Unknown History tablet (Nitrostat) Pain potassium chloride 10 mEq 10 meq PO QAM 10/18/23 10/21/23 10/18/23 History capsule,extended release Allergies Allergy/AdvReac Type Severity Reaction Status Date / Time No Known Allergies Allergy Verified 10/21/23 12:21 PFSH Acute 2 PFSH: Medical History History of left above knee amputation BPH loc w urin obs/LUTS Started on TAMSULOSIN March 2021 for chronic BPH symptoms Atrial fibrillation with RVR Patient converted to normal sinus rhythm with home dose of sotalol. Bladder cancer Low-grade noninvasive papillary urothelial carcinoma plan cystoscopy done in December 2020, status post intravesical mitomycin after each cystoscopy and status post induction therapy with weekly BCG intravesically from August 18, 2021 through September 22, 2021 Follow-up cystoscopy done on January 16, 2022 showed persistent/recurrence low- grade urothelial carcinoma status post fulguration followed by postop intravesical mitomycin. Proteinuria Coronary artery disease Anticoagulation adequate with anticoagulant therapy Carotid stenosis Abdominal aortic aneurysm (AAA) COPD (chronic obstructive pulmonary disease) Tobacco abuse Adamantly refuses to quit after multiple sessions of counseling Peripheral arterial disease Erectile dysfunction Hypertriglyceridemia HTN (hypertension), benign Diabetic neuropathy Afib Diabetes mellitus Surgical History History of bladder surgery Previous back surgery Hx of appendectomy History of carotid endarterectomy History of abdominal aortic aneurysm (AAA) repair S/P femoral-popliteal bypass surgery S/P right coronary artery (RCA) stent placement hx of Distal RCA and Prox RCA H/O heart artery stent Family History Father , in his 80's Stroke Mother , at age 83 Diabetes Social History Smoking and tobacco/nicotine status: current every day tobacco/nicotine user cigarettes Packs smoked per day: 1 Alcohol intake: never Substance/Drug Use: never Household members: spouse Marital status: service: Yes branch: [employer] Current occupational status: retired Physical Exam 2 Narrative: GENERAL: Patient is alert, awake and oriented x3. [] NECK: No jugular vein distension. [] HEENT: No cyanosis. No icterus. No pallor. [] HEART: Regular S1 and S2. No murmur, rub or gallop. [] LUNGS: Clear to auscultate bilaterally. [] CENTRAL NERVOUS SYSTEM: Grossly nonfocal. [] EXTREMITIES: Lower extremities with 1+ edema . Has BKA Data 10/21/23 16:06 10/22/23 03:10 A&P Assessment and plan (1) Unstable angina: (2) Coronary artery disease: Qualifiers: Coronary Disease-Associated Artery/Lesion type: [place] artery [place] vs. transplanted heart: big sandy heart Associated angina: with unspecified angina Qualified Code(s): I25.119 - Atherosclerotic heart disease of [place] coronary artery with unspecified angina pectoris (3) Chest pain: (4) Carotid stenosis: (5) Tobacco abuse: Plan Patient has significant prior CAD history and has presented with worsening typical chest pain symptoms. Plan for coronary angiogram with possible PCI tomorrow morning. Risks and benefits of the procedure have been discussed. N.p.o. past midnight. Will be given Lovenox tonight. Keep holding Xarelto. Continue Plavix. We will order echocardiogram. Attestations 2 Medical Necessity Statement*: Care expected to cross 2 midnights. Patient will need urgent coronary angiogram in the AM. Coding Level of Care Code Acute Code for [facility] Fwd Diagnoses Unstable angina I20.0 Coronary artery disease involving big sandy coronary artery of big [place] heart with angina pectoris I25.119 Coronary Disease-Associated Artery/Lesion type: [place] artery [place] vs. transplanted heart: big [place] heart Associated angina: with unspecified angina Chest pain R07.9 Carotid stenosis I65.29 Tobacco abuse Z72.0
[2023-10-21 16:55] LABS: Basophils # 0.1 10^3/uL (0.0-0.1); Basophils % 0.9 %; Eosinophils # 0.5 10^3/uL (0.0-0.8); Eosinophils % 5.9 %; Lymphocytes % 33.7 %; Mean Corpuscular HGB Conc 31.8 g/dL (30-55); Mean Corpuscular Hemoglobin 32.7 pg (27-33); Mean Corpuscular Volume 102.7 fl (82-101); Mean Platelet Volume 9.8 fL (7.4-10.4); Monocytes # 1.4 10^3/uL (0.2-0.9); Monocytes % 15.6 %; Neutrophils # 3.83 10^3/uL (1.8-7.7); Neutrophils % 43.4 %; Nucleated Red Blood Cells % 0 %; Platelet Count 236 10^3/cmm (157-399); Red Cell Distribution Width 16.7 % (12.1-15.1); White Blood Count 8.82 10^3/uL (3.29-11.43)
[2023-10-21 17:18] LABS: Slide Review Slide Review Perform
[2023-10-21 17:19] LABS: Alanine Aminotransferase 15 U/L (0-41); Albumin Level 3.8 g/dL (3.5-5.2); Alkaline Phosphatase 61 U/L (40-130); Aspartate Amino Transferase 19 U/L (0-40); Blood Urea Nitrogen 20 mg/dL (8-23); Calcium 8.9 mg/dL (8.5-10.5); Carbon Dioxide 27 mmol/L (22-29); Chloride 101 mmol/L (98-107); Globulin 2.8 g/dL (1.3-4.6); Glucose 86 mg/dL (65-115); Osmolality Calculated 288 mOsm/kg (285-295); Sodium 138 mmol/L (136-145); Total Bilirubin 0.2 mg/dL (0.15-1.2); Total Protein 6.6 g/dL (6.6-8.7)
[2023-10-21 17:20] LABS: Troponin(5th) Baseline 23 ng/L (0-15)
[2023-10-21 17:35] LABS: Anion Gap 14.2 (5-19); Potassium 4.2 mmol/L (3.5-5.1)
[2023-10-21] MEDS: atorvastatin 40 mg Tablet PO (18:21)
[2023-10-21] MEDS: tamsulosin 0.4 mg Capsule PO (18:21)
[2023-10-21] MEDS: hyDRALAzine 50 mg Tablet PO (18:21)
[2023-10-21] MEDS: sotalol 80 mg Tablet 120 MG PO (18:22)
[2023-10-21 18:34] LABS: Glucose Point of Care 161 mg/dL (70-110)
[2023-10-21] MEDS: insulin lispro 100 unit/1 mL SUBCUT ×2 (18:49→22:03)
[2023-10-21] MEDS: enoxaparin 80 mg/0.8 mL Syringe SUBCUT (18:50)
[2023-10-21 19:24] LABS: Troponin 5 2HR 24.77 ng/L (0-15); Troponin 5 2HR Delta 1.77 ABS# (0-10)
--- NOTE | 2023-10-21 20:26 | ECG_ITS ---
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 Measurements Intervals [place] Rate: 107 P: 0 IN: 0 QRS: -52 QRSD: 98 T: 69 QT: 375 QTc: 502 Interpretive Statements ATRIAL FIBRILLATION WITH RAPID VENTRICULAR RESPONSE LEFT ANTERIOR FASCICULAR BLOCK [QRS AXIS <= -45, QR IN I, RS IN II] MINIMAL VOLTAGE CRITERIA FOR LVH, CONSIDER NORMAL VARIANT [MEETS CRITERIA IN ONE OF: R(aVL), S(V1), R(V5), R(V5/V6)+S(V1)] NONSPECIFIC ST & T-WAVE ABNORMALITY Compared to ECG 10/18/2023 11:46:09 Left anterior fascicular block now present T-wave abnormality still present Electronically Signed On 10-21-2023 23:08:20 CAREER AGENT by Art Mays M.D. [email or web address]
[2023-10-21 21:09] LABS: Glucose Point of Care 214 mg/dL (70-110)
[2023-10-21] MEDS: gabapentin 100 mg Capsule 200 MG PO (22:03)
[2023-10-21 22:46] LABS: Troponin 5 6HR 25.78 ng/L (0-15); Troponin 5 6HR Delta 2.78 ng/L (0-12)
[2023-10-22] VITALS (9 sets, daily range): BP systolic 127–161; BP diastolic 62–88; PULSE 90–108; RESP 12–23; TEMP 36.6–36.7; O2SAT 91–97
[2023-10-22 04:20] LABS: Anion Gap 14.5 (5-19); Blood Urea Nitrogen 22 mg/dL (8-23); Calcium 9.2 mg/dL (8.5-10.5); Carbon Dioxide 26 mmol/L (22-29); Chloride 103 mmol/L (98-107); Glucose 82 mg/dL (65-115); Osmolality Calculated 292 mOsm/kg (285-295); Potassium 3.5 mmol/L (3.5-5.1); Sodium 140 mmol/L (136-145)
--- NOTE | 2023-10-22 05:56 | XACV_ITS ---
Exam Room: [facility] Ht: 170 cm Wt: 77 kg BSA: 1.92 m2 Gender: Male : 1945 Any Known Allergies: No known allergies Exam Priority: Routine Procedure(s): Procedure Description: Diagnostic procedure Procedure Description: Left Heart Catheterization Procedure Description: Coronary Angiography Diagnostic Cath Status: Urgent Diagnostic Findings * INDICATION: 78 year old male with past medical history of CAD, atrial fibrillation on Xarelto held yesterday, PAD s/p BKA who made urgent appointment to office secondary to worsening chest pain symptoms. According to patient and family has been taking multiple nitros since last week. Get substernal severe chest pain radiating to the arm and the jaw. He was seen in the ER as well. ACS was ruled out and he was discharged to have outpatient cardiology follow-up. Continues having worsening symptoms. EKG shows atrial fibrillation with non-specific ST T wave changes. * Left Main has no significant disease. * Left Anterior Descending has mild to moderate luminal irregularities. * Right Coronary Artery has patent prior stents. * Left circumflex artery is small caliber and diffusely diseased. * In mid to distal segment * and has * a significant 70 to 80% stenosis.. * Coronary angiography shows right dominance. Conclusions 1. Significant, diffuse disease of the mid to distal small caliber left circumflex artery. We will manage it medically given size of the vessel. 2. Patent prior stents in RCA. Recommendations * Aggressive risk factor modification. * Order echocardiogram. * Outpatient cardiology follow up in 2 weeks. Interventional RX Recommendation: medical therapy and/or counseling Diagnostic RX Recommendation: medical therapy and/or counseling Anticoagulation: Heparin Pressures Phase:Rest AO : 123 / 60 ( 85 ) @ 8:33:00 AM 117 / 84 ( 97 ) @ 8:34:00 AM 141 / 66 ( 104 ) @ 8:36:00 AM 141 / 72 ( 100 ) @ 8:36:00 AM 121 / 78 ( 97 ) @ 8:41:00 AM 126 / 76 ( 100 ) @ 8:42:00 AM 127 / 80 ( 99 ) @ 8:43:00 AM LV : 138 / 2 / 9 @ 8:36:00 AM 147 / 1 / 11 @ 8:36:00 AM Valves Phase:DefaultPhase AV : 4.0 @ 10:06:18 AM AV Mean Gradient: 7.0 @ 10:06:18 AM 7.0 @ 10:06:18 AM Clinical Evaluation EBL: 5mL-10mL Procedural Details Pre-Procedure Time Out. Identified patient by full name and date of as verbalized by the patient/guarantor. Does the consent match the physician's order: Yes. Accurate & Complete Informed Consent: Yes. Inpatient/Outpatient History & Physical on Chart: Yes. If H&P is completed, is and addenduem needed: No; If yes, is the addendum complete: N/A. Visualize and Verify Site with Patient/Guarantor: N/A. Relevant Radiology Images available: Yes. Pre-op teaching completed and patient verbalized understanding. The risks, benefits, and alternatives of sedation and/or procedure were discussed by physician. The patient agrees to continue. Procedure started. [facility] Clinical Fraility Score: 4: Vulnerable. Insurance Claims Supervisor Indications: Worsening Angina. Chest Pain Symptom Assessment: Atypical Angina. Current diagnosis: Chest Pain. PERRLA. Strong, equal hand innovations paraprofessional bilaterally. Lungs clear x 5 lobes. IV Site on Arrival: 20 gauge in the right anticubital. IV Fluids: 0.9% NaCl at KVO. 0 mL infused prior to tree tapping laborer. Pre Procedural Pulses: right dorsalis pedis was Doppled. Pre Procedural Pulses: right posterior tibial was Doppled. Pre Procedural Pulses: right radial was 1+. Oxygen started at 2liters/min via nasal canula. right groin was prepped with chloroprep then draped in the usual sterile fashion. right radial was prepped with chloroprep then draped in the usual sterile fashion. Baseline sample Acquired. HR: 118 BPM. Physician arrived. Current Diagnosis : Chest Pain. Physician scrubbed in. Immediate Pre-Procedure Time Out. Correct Patient: Yes; Correct Procedure: Yes; Correct Site: Yes; Correct Patient Position: Yes; Correct Supplies: Yes; Dried Flammable Prep: Yes; Blood Products Available: N/A;. Lidocaine 1% infiltrated to the right radial. Arterial access obtained. A 5 turkmen JR4 catheter in over wire. Wire out. Contrast hand injected through the catheter. Glidewire inserted through the catheter. Multiple views taken of right coronary artery. EDP Sample taken: LV 138/2,9; HR: 114 BPM; SpO2: 97%. Pullback taken: LV 147/1,11; AO 141/66(104); Mean: 7mmHg, Peak to Peak: 4mmHg, SEP: 24sec/min; HR: 108 BPM; SpO2: 94%. Catheter removed over the exchange wire. A 5 turkmen JL3.5 catheter in over wire. Multiple views taken of left coronary artery. Catheter removed over the exchange wire. A TR Band was successful obtaining hemostatsis at the Right Radial artery insertion site. Post Procedure: Pulses reassessed and unchanged. PERRLA. Strong, equal hand innovations paraprofessional bilaterally. No VTE prophylaxis required. Medication's Wasted: Lidocaine 1% = 8 mL. Medication's Wasted: Nitro = 49.6 mg. Total IV fluids: 50 mL. Medication's Wasted: Other = Fentanyl 50mcg. Medication's Wasted: Heparin = 1000 units. Vital chart was stopped. Complications: None. Estimated blood loss: 5mL-10mL. Responsiveness - Normal response to verbal stimuli; alert and oriented, PERRLA. Airway - Unaffected, no intervention required; spontaneous ventilation. Circulation: W/N/L, pulses unchanged. Nausea/Vomiting: No. Procedure completed. Patient transferred by bed to CPRU. Access Site Site: Right Radial artery Sheath Size: 6 Fr Hemostasis Method: TR Band Hemostasis Success: Successful Procedure Medications Start: 8:22 AM Stop: 8:22 AM Medication: Versed 1 mg and Fentanyl 25 mcg Amount: 1 Route: I.V. Start: 8:26 AM Stop: 8:26 AM Medication: Nitrogylcerin Amount: 200 mcg Route: I.A. Start: 8:27 AM Stop: 8:27 AM Medication: Versed Amount: 1 mg Route: I.V. Start: 8:29 AM Stop: 8:29 AM Medication: Nitrogylcerin Amount: 200 mcg Route: I.A. Start: 8:32 AM Stop: 8:32 AM Medication: Fentanyl Amount: 25 mcg Route: I.V. Start: 8:32 AM Stop: 8:32 AM Medication: Heparin Amount: 5000 units Route: I.V. Start: 8:38 AM Stop: 8:38 AM Medication: Fentanyl Amount: 25 mcg Route: I.V. I, the attending physician, have reviewed and verified all procedure medications. Yes, all medications given per verbal order History/Risk Factors Hypertension: Yes Dyslipidemia: Yes Peripheral Arterial Disease (PAD): Yes Myocardial Infarction (WA): No Obesity: No Renal Disease: No Tobacco Use: Current/Recent(w/in 1 year) Prior 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 PCI: Yes CABG: No Valve Surgery: No Date of PCI: 03/27/2021 Report Signatures Finalized by Art Mays MD on 11/04/2023 02:23 PM
[2023-10-22 06:29] LABS: Glucose Point of Care 164 mg/dL (70-110)
[2023-10-22] MEDS: lisinopril 20 mg Tablet 40 MG PO (06:29)
[2023-10-22] MEDS: aspirin 325 mg Tablet PO (06:29)
[2023-10-22] MEDS: clopidogrel 75 mg Tablet PO (06:29)
[2023-10-22] MEDS: diphenhydrAMINE 50 mg Capsule PO (06:30)
[2023-10-22] MEDS: sodium chloride 0.9% 1,000 ML 50 ML IV (06:30)
[2023-10-22] MEDS: gabapentin 100 mg Capsule 200 MG PO (07:59)
[2023-10-22] MEDS: hyDRALAzine 50 mg Tablet PO (07:59)
[2023-10-22] MEDS: sotalol 80 mg Tablet 120 MG PO (08:00)
--- NOTE | 2023-10-22 08:06 | PC.NURSE ---
to chemical laboratory chief via bed at this time
--- NOTE | 2023-10-22 08:08 | W.PM.OPSUD ---
Surgery/Procedure H&P Update DATE OF PROCEDURE: October 22, 2023 DATE H&P PERFORMED: 10/21/23 H&P UPDATE INFORMATION: I have reviewed H&P completed within last 30 days, I have examined patient prior to procedure and No changes to prior documentation PREOP DIAGNOSIS: Unstable angina PRIMARY INDICATION FOR PROCEDURE: Unstable angina PLANNED PROCEDURE: Operation Date: 10/22/23 08:30 Proposed Procedures p [facility] w/ Poss PCI(Not Applicable) - Art Mays M.D PATIENT REASSESSED PRIOR TO SEDATION, WITH NO CHANGE NOTED: Yes PHYSICAL EXAM: alert, oriented x 3, clear to auscultation bilaterally and operative site marked OTHER PERTINENT EXAM FINDINGS: Irregularly irregular AIRWAY EVAL/ANESTHESIA PLAN: normal airway, ASA III, Local Anesthesia, Risks, benefits & alternatives of sedation and/or procedure discussed and Patient agrees to continue as planned ADDITIONAL INFORMATION: Moderate sedation
--- NOTE | 2023-10-22 08:52 | USCV_ITS ---
Ashvin Hickey Age: 78 Gender: M : 1945 Exam Date: 10/22/2023 10:54 Ordering Phys: Art Mays M.D ([email or web address]) Technologist: Sedrick Irving Exam Location: [facility] [place] Indication: post card cath BP: 125 / 71 HR: 100 Rhythm: Sinus Technical Quality: Adequate MEASUREMENTS (Male / Female) Normal Values 2D ECHO LV Diastolic Diameter PLAX 4.9 cm 4.2 - 5.9 / 3.9 - 5.3 cm LV Systolic Diameter PLAX 2.5 cm IVS Diastolic Thickness 1.4 cm 0.6 - 1.0 / 0.6 - 0.9 cm IVS Systolic Thickness 1.9 cm LVPW Diastolic Thickness 1.3 cm 0.6 - 1.0 / 0.6 - 0.9 cm LVPW Systolic Thickness 1.6 cm LVOT Diameter 2.0 cm LV Ejection Fraction 2D Teich 80.7 % LV Ejection Fraction MOD 2C 71.6 % LV Ejection Fraction 2C AL 71.9 % LA Diameter 4.6 cm IVC Diameter 1.2 cm M-MODE Aortic Annulus Diameter 3.7 cm LA Ao Ratio MM 1.4 MV E Point Septal Separation 1.0 cm DOPPLER AV Peak Velocity 119.0 cm/s LVOT Peak Velocity 76.0 cm/s AV Area Cont Eq vti 1.8 cm squared AV Area Cont Eq pk 2.1 cm squared MV Area PHT 5.9 cm squared Mitral E to A Ratio 4.0 MV E' Velocity 57.0 cm/s Mitral E to MV E' Ratio 16.5 Mitral E to LV E' Lateral Ratio 16.0 Mitral E to LV E' Septal Ratio 17.0 TR Peak Velocity 190.3 cm/s TR Peak Gradient 14.5 mmHg TV Peak E Velocity 94.0 cm/s Right Atrial Pressure 3.0 mmHg Pulmonary Artery Systolic Pressu 17.5 mmHg RV Acceleration Time 0.1 s FINDINGS Left Ventricle Left ventricle is normal in size. LV systolic function is normal with EF of 55 to 60%. No regional wall motion abnormalities are seen. Right Ventricle Normal in size and function Right Atrium Normal in size Left Atrium Dilated Mitral Valve Structurally normal mitral valve. Trace mitral regurgitation Aortic Valve Structurally normal aortic valve. No significant stenosis or regurgitation. Tricuspid Valve Mild tricuspid regurgitation. Pulmonary artery systolic pressure is normal. Pulmonic Valve Not well visualized Pericardium Normal Aorta Normal in size IVC Appears to be normal CONCLUSIONS LV systolic function is normal with EF of 55 to 60%. Left atrial dilation. Trace mitral regurgitation. Mild tricuspid regurgitation. Compared to prior echocardiogram from 2020, no significant changes are seen Art Mays MD (Electronically Signed) Final Date: 22 October 2023 13:33 S
--- NOTE | 2023-10-22 09:00 | SUR.PHASEI ---
POST CATH NOTE Patient brought to CPRU post cardiac catheterization via the right radial approach. TR BAND in place to right wrist and is hemostatic. Vitals and Assessments per flowsheet. Family brought in to bedside. Verbal post cath instructions went over with the patient/Family which they understood well. Call light at bedside. IV fluids is 0.9% NS at 100 ml/hr post cath. Informed to call for needs.
--- NOTE | 2023-10-22 10:46 | PC.NURSE ---
received from cardiac clinical laboratory scientist via bed at 0945.report received.pt is alert and awake.denies pain.afib at controlled rate on monitor.right wrist with tr band on and inflated.right hand is warm to touch and with brisk capillary refill.palpable radial pulse noted distal to tr band.no hematoma noted.pt instructed in activity restrictions s/p radial artery procedure...and instructed to notify staff for any bleeding,pain,numbness...or for any concerns at all.pt verb understanding of instructions
--- NOTE | 2023-10-22 13:10 | P.DS_ITS ---
Discharge Providers Date of Admission: 10/21/2023 Date of Discharge: October 22, 2023 Attending Provider at Admission: Art Mays MD Attending Provider at Discharge: Art Mays M.D Primary Care Provider: Bree Perkins MD Diagnoses at Discharge Discharge Diagnosis (1) Unstable angina: Status: Resolved (2) Coronary artery disease: Status: Acute Qualifiers: Associated angina: with unspecified angina Coronary Disease-Associated Artery/Lesion type: [place] artery [place] vs. transplanted heart: [place] heart Qualified Code(s): I25.119 - Atherosclerotic heart disease of [place] coronary artery with unspecified angina pectoris (3) Chest pain: Status: Resolved (4) Carotid stenosis: (5) Tobacco abuse: Status: Acute Reason for Visit Reason for Visit: Unstable angina Brief History: 78 year old male with past medical history of CAD, atrial fibrillation on Xarelto held yesterday, PAD s/p BKA who made urgent appointment to office secondary to worsening chest pain symptoms. According to patient and family has been taking multiple nitros since last week. Get substernal severe chest pain radiating to the arm and the jaw. He was seen in the ER as well. ACS was ruled out and he was discharged to have outpatient cardiology follow-up. Continues having worsening symptoms. EKG shows atrial fibrillation with non-specific ST T wave changes. Hospital Course Hospital Course Coronary angiogram demonstrated patent RCA stents. Patient did have significant disease in left circumflex artery however overall small caliber vessel with diffuse disease. Medical management decided. Patient was stable and was discharged home in a stable condition Physical Exam Narrative: GENERAL: Patient is alert, awake and oriented x3. [] NECK: No jugular vein distension. [] HEENT: No cyanosis. No icterus. No pallor. [] HEART: Regular S1 and S2. No murmur, rub or gallop. [] LUNGS: Clear to auscultate bilaterally. [] CENTRAL NERVOUS SYSTEM: Grossly nonfocal. [] EXTREMITIES: Lower extremities with 1+ edema . Has BKA Discharge Data Studies Completed and Pending Pending at discharge Category Date Time Status DRILLING FIELD PROFESSIONAL request for service Routine Exams 10/22/23 05:56 Ordered Basic Metabolic Panel AM LABS Lab 10/23/23 04:00 Ordered Basic Metabolic Panel AM LABS Lab 10/24/23 04:00 Ordered CV. echo complete* [id number] Routine Ultrasound 10/22/23 08:52 Taken Laboratory Results WBC 8.82 10^3/uL (3.29-11.43) 10/21/23 16:06 RBC 3.70 10^6/uL (3.85-5.65) L 10/21/23 16:06 Hgb 12.10 g/dL (11.27-16.99) 10/21/23 16:06 Hct 38.0 % (37-53) 10/21/23 16:06 MCV 102.7 fl (82-101) H 10/21/23 16:06 MCH 32.7 pg (27-33) 10/21/23 16:06 MCHC 31.8 g/dL (30-55) 10/21/23 16:06 RDW 16.7 % (12.1-15.1) H 10/21/23 16:06 Plt Count 236 10^3/cmm (157-399) 10/21/23 16:06 MPV 9.8 fL (7.4-10.4) 10/21/23 16:06 Neut % (Auto) 43.4 % 10/21/23 16:06 Lymph % (Auto) 33.7 % 10/21/23 16:06 [place] % (Auto) 15.6 % 10/21/23 16:06 Eos % (Auto) 5.9 % 10/21/23 16:06 Baso % (Auto) 0.9 % 10/21/23 16:06 Neut # (Auto) 3.83 10^3/uL (1.8-7.7) 10/21/23 16:06 Lymph # (Auto) 3.0 10^3/uL (0.8-4.8) 10/21/23 16:06 [place] # (Auto) 1.4 10^3/uL (0.2-0.9) H 10/21/23 16:06 Eos # (Auto) 0.5 10^3/uL (0.0-0.8) 10/21/23 16:06 Baso # (Auto) 0.1 10^3/uL (0.0-0.1) 10/21/23 16:06 Nucleated RBC % (auto) 0 % 10/21/23 16:06 Nucleated RBCs # 0.0 /100WBC 10/21/23 16:06 Sodium 140 mmol/L (136-145) 10/22/23 03:10 Potassium 3.5 mmol/L (3.5-5.1) 10/22/23 03:10 Chloride 103 mmol/L (98-107) 10/22/23 03:10 Carbon Dioxide 26 mmol/L (22-29) 10/22/23 03:10 Anion Gap 14.5 (5-19) 10/22/23 03:10 BUN 22 mg/dL (8-23) 10/22/23 03:10 Creatinine 0.9 mg/dL (0.7-1.2) 10/22/23 03:10 GFR Calculation Not Reportable 10/22/23 03:10 Glucose 82 mg/dL (65-115) 10/22/23 03:10 POC Glucose 164 mg/dL (70-110) H 10/22/23 06:19 Calculated Osmolality 292 mOsm/kg (285-295) 10/22/23 03:10 Calcium 9.2 mg/dL (8.5-10.5) 10/22/23 03:10 Total Bilirubin 0.2 mg/dL (0.15-1.2) 10/21/23 16:06 AST 19 U/L (0-40) 10/21/23 16:06 ALT 15 U/L (0-41) 10/21/23 16:06 Alkaline Phosphatase 61 U/L (40-130) 10/21/23 16:06 Troponin T Baseline 23 ng/L (0-15) H 10/21/23 16:06 Troponin T 120 Minute 24.77 ng/L (0-15) H 10/21/23 18:37 Delta Troponin T 1.77 ABS# (0-10) 10/21/23 18:37 Troponin T Hi Sens 6Hr 25.78 ng/L (0-15) H 10/21/23 22:18 Troponin T Hi Sens 6Hr Delta 2.78 ng/L (0-12) 10/21/23 22:18 Total Protein 6.6 g/dL (6.6-8.7) 10/21/23 16:06 Albumin 3.8 g/dL (3.5-5.2) 10/21/23 16:06 Globulin 2.8 g/dL (1.3-4.6) 10/21/23 16:06 Vitals Last Vital Signs Temp 97.8 F 10/22/23 11:43 Pulse 103 H 10/22/23 11:43 Resp 18 10/22/23 11:43 BP 128/62 10/22/23 11:43 Pulse Ox 97 10/22/23 11:43 O2 Del Method Room Air 10/22/23 11:43 Discharge Plan Discharge Patient Disposition: Home Prescriptions: New Cartia XT 180 mg capsule,extended release 24hr 180 mg PO DAILY Qty: 90 1RF isosorbide mononitrate 60 mg tablet extended release 24 hr 30 mg PO DAILY Qty: 60 0RF Continued duloxetine [Cymbalta] 20 mg capsule,delayed release(DR/EC) 20 mg PO QAM ferrous sulfate 325 mg (65 mg iron) tablet 325 mg PO QAM pantoprazole 40 mg tablet,delayed release (DR/EC) 40 mg PO BID tamsulosin 0.4 mg capsule 0.4 mg PO QPM Qty: 90 3RF folic acid 1 mg tablet 1 mg PO QAM furosemide [Lasix] 20 mg tablet 20 mg PO BID methotrexate sodium 2.5 mg tablet 20 mg PO Q7D Rx Instructions: 8 TABS WEEKLY ON SATURDAY sucralfate 1 gram tablet 1 g PO QID PRN (Reason: UNKNOWN) gabapentin 100 mg capsule 200 mg PO TID Enbrel SureClick 50 mg/mL (1 mL) pen injector 50 mg SUBCUT Q7D Rx Instructions: ON SAT lisinopril 40 mg tablet 40 mg PO QAM Lantus Solostar U-100 Insulin 100 unit/mL (3 mL) insulin pen 20 unit SUBCUT BID Dose Instruction: inject 40 units SUBCUTANEOUSLY IN THE EVENING (DME) pen needle, diabetic [TechLITE Pen Needle] 32 gauge x 5/32 needle See Rx Instructions .Route Qty: 400 0RF Rx Instructions: test 4 times daily hydralazine 50 mg tablet 50 mg PO BID Qty: 180 3RF Xarelto 20 mg tablet 20 mg PO BEDTIME Qty: 90 3RF Hold Instructions: Resume on 09/15/22. sotalol 80 mg tablet 120 mg PO BID Qty: 180 3RF clopidogrel [Plavix] 75 mg tablet 75 mg PO QAM Hold Instructions: Resume on 03/16/21. triamcinolone acetonide 0.1 % cream 1 applic TOPICAL TID PRN (Reason: Rash) acetaminophen 500 mg Tablet 500 mg PO Q6H PRN (Reason: Pain) nitroglycerin [Nitrostat] 0.4 mg Tablet, Sublingual 0.4 mg SUBLINGUAL Q5M PRN (Reason: Chest Pain) Rx Instructions: do not exceed 3 doses per episode potassium chloride 10 mEq capsule, extended release 10 meq PO QAM cetirizine 10 mg tablet 10 mg PO BEDTIME insulin aspart U-100 [Novolog FlexPen U-100 Insulin] 100 unit/mL (3 mL) insulin pen See Rx Instructions .ROUTE .COMPLEX Rx Instructions: sliding scale tid Held metformin 500 mg tablet 500 mg PO BID Hold Instructions: Resume on 10/24/23. No Action pravastatin 40 mg tablet 40 mg PO DAILY Qty: 90 3RF Discharge Orders: Discharge Order (Routine); Ordered 10/22/23 Ordered By: Art Mays Referrals: Bree Perkins MD [Primary Care Provider] - 10/29/23 8:30 am Ginna Barnes FNP [Nurse Practitioner] - 11/05/23 2:00 pm Diet: Cardiac and Diabetic Activity: Increase activity as tolerated Patient Instructions: Diltiazem (By mouth) (Cardizem, Cardizem CD, Cardizem LA, Cardizem SR), Isosorbide Mononitrate (By mouth) (Imdur, Imdur ER, Ismo), Angina (DC), Heart Catheterization (DC), CHF Stoplight, Post Angiogram Home Care Instructions Discharge Date/Time: 10/22/23 15:58 Discharge Attestations Time Spent in Discharge Care*: less than 30 min Status at Discharge: Cognitive status at discharge: cognitively intact , Behavioral status at discharge: cooperative , Quality Metrics Clinical Quality Measures [ No reported AMI, CVA or VTE this stay] Coding Level of Care Code Acute Code for g Fwd Diagnoses Unstable angina I20.0 Coronary artery disease involving miccosukee coronary artery of [place]e heart with angina pectoris I25.119 Associated angina: with unspecified angina Coronary Disease-Associated Artery/Lesion type: [place] artery [place] vs. transplanted heart: [place]e heart Chest pain R07.9 Carotid stenosis I65.29 Tobacco abuse Z72.0
[2023-10-22 13:34] LABS: Glucose Point of Care 195 mg/dL (70-110)
--- NOTE | 2023-10-22 15:52 | PC.NURSE ---
tr band slowly deflated and finally removed at 1500.no hematoma noted.post op instructions given and explainedpt and spouse verb understanding of instructions.discharged via w/c to exit at this time.spouse to drive pt home
== END 2023-10-22 15:58 | disposition home or self-care (01) ==
LOC: CSU 10-22 13:20 → CCL 10-30 05:16 → CSU 10-30 08:28
PROVIDERS: PCP Family Medicine; Visit Provider Internal Medicine
DX: I25.119 Atherosclerotic heart disease of native coronary artery with unspecified angina pectoris (principal); R07.9 Chest pain, unspecified; I65.29 Occlusion and stenosis of unspecified carotid artery; I48.91 Unspecified atrial fibrillation; Z79.01 Long term (current) use of anticoagulants; I10 Essential (primary) hypertension; E78.5 Hyperlipidemia, unspecified; N40.1 Benign prostatic hyperplasia with lower urinary tract symptoms; N13.8 Other obstructive and reflux uropathy; Z85.51 Personal history of malignant neoplasm of bladder; J44.9 Chronic obstructive pulmonary disease, unspecified; E11.40 Type 2 diabetes mellitus with diabetic neuropathy, unspecified; F17.210 Nicotine dependence, cigarettes, uncomplicated; I25.118 Atherosclerotic heart disease of native coronary artery with other forms of angina pectoris; I73.9 Peripheral vascular disease, unspecified; E11.65 Type 2 diabetes mellitus with hyperglycemia; Z79.4 Long term (current) use of insulin; R07.89 Other chest pain; I48.21 Permanent atrial fibrillation; Z79.84 Long term (current) use of oral hypoglycemic drugs; Z79.02 Long term (current) use of antithrombotics/antiplatelets; I25.10 Atherosclerotic heart disease of native coronary artery without angina pectoris
CPT/HCPCS: 36415; 36416; 80048; 80053; 82962; 84484; 85025; 93005; 93306; 93458; 96372; 99152; 99153; 99215; C1769; C1887; C1894; J1644; J1650; J1815; J2250; J3010; J3490; J7030; Q0163; Q9967

== ENCOUNTER → 2023-11-05 13:32 | Outpatient (BNVA) | payer MEDICARE, BC, SELFPAY | PROVIDERS: PCP Family Medicine; Visit Provider Nurse Practitioner Family | DX: I25.119 Atherosclerotic heart disease of native coronary artery with unspecified angina pectoris (principal) | CPT/HCPCS: 36415; 80048; 99214 ==

== ENCOUNTER 2024-02-03 11:47 | Outpatient (CLI) | payer MEDICARE, BC, SELFPAY ==
--- NOTE | 2024-02-03 11:56 | XRR_ITS ---
PROCEDURE INFORMATION: Exam: XR Chest Exam date and time: 02/03/2024 12:07 PM Age: 78 years old Clinical indication: Cough and shortness of breath; Prior surgery; Surgery date: 6+ months; Surgery type: Stent; Additional info: Shortness of breath/edema/copd TECHNIQUE: Imaging protocol: Radiologic exam of the chest. Views: 2 views. COMPARISON: CR XR chest 1V portable [id number] 10/18/2023 12:37 PM FINDINGS: Lungs: Mild bilateral pulmonary infiltrates and effusions probably due to CHF. Pleural spaces: Unremarkable. No pleural effusion. No pneumothorax. Heart/Mediastinum: The heart and mediastinum are normal. Bones/joints: Unremarkable. XR/XR chest 2V* [id number] IMPRESSION: Mild bilateral infiltrates and effusions.
== END 2024-02-03 11:48 | disposition home or self-care (01) ==
PROVIDERS: PCP Family Medicine; Visit Provider Nurse Practitioner Family
DX: J90 Pleural effusion, not elsewhere classified (principal); R05.9 Cough, unspecified; R06.02 Shortness of breath
CPT/HCPCS: 71046

== ENCOUNTER 2024-02-04 11:11 | Inpatient (IN) | payer MEDICARE, BC, SELFPAY ==
[2024-02-04] VITALS (65 sets, daily range): BP systolic 112–229; BP diastolic 43–145; PULSE 59–131; RESP 16–37; TEMP 36.5–38.1; O2SAT 85–99; BMI 26.1; BMI 26.6
--- NOTE | 2024-02-04 11:47 | XRR_ITS ---
PROCEDURE INFORMATION: Exam: XR Chest Exam date and time: 02/04/2024 11:56 AM Age: 78 years old Clinical indication: Shortness of breath; Prior surgery; Surgery date: 6+ months; Surgery type: Stent; Patient HX: PT presents with SOB. Patient states he had bladder surgery last week and has been struggling since. Patient states increased SOB. Patient states she went to pcp yesterday and they increased lasix and took chest XR. Patent airway, unlabored respirations, and appropriate color. TECHNIQUE: Imaging protocol: Radiologic exam of the chest. Views: 1 view. COMPARISON: CR XR chest 2V* [id number] 02/03/2024 12:07 PM FINDINGS: Lungs: Persistent bibasilar hazy airspace opacities. Pleural spaces: Mildly improved bilateral pleural effusions. Heart/Mediastinum: Cardiomediastinal silhouette is midline and stable in size. Bones/joints: Osseous structures are unchanged. XR/XR chest 1V portable [id number] IMPRESSION: 1. Mildly improved bilateral pleural effusions. 2. Persistent bibasilar hazy airspace opacities.
[2024-02-04 11:56] LABS: Basophils # 0.1 10^3/uL (0.0-0.1); Basophils % 0.5 %; Eosinophils # 0.3 10^3/uL (0.0-0.8); Eosinophils % 1.9 %; Hematocrit 35.2 % (37-53); Lymphocytes # 1.8 10^3/uL (0.8-4.8); Lymphocytes % 12.3 %; Mean Corpuscular HGB Conc 32.7 g/dL (30-55); Mean Corpuscular Hemoglobin 33.1 pg (27-33); Mean Corpuscular Volume 101.4 fl (82-101); Mean Platelet Volume 9.7 fL (7.4-10.4); Monocytes # 1.5 10^3/uL (0.2-0.9); Neutrophils # 11.02 10^3/uL (1.8-7.7); Neutrophils % 74.8 %; Nucleated Red Blood Cells % 0 %; Platelet Count 393 10^3/cmm (157-399); Red Blood Count 3.47 10^6/uL (3.85-5.65); Red Cell Distribution Width 17.2 % (12.1-15.1); White Blood Count 14.75 10^3/uL (3.29-11.43)
--- NOTE | 2024-02-04 11:58 | ED_ITS ---
HPI - SOB/Dyspnea 2 General: Chief Complaint: Shortness of Breath/Dyspnea Stated Complaint: sob Time Seen by Provider: 02/04/24 11:43 History of Present Illness: HPI Narrative: 78-year-old man with a history of atrial fibrillation, BPH status post bladder surgery recently bladder cancer, coronary artery disease COPD, peripheral arterial disease status post left AKA, hypertension and diabetes and diabetic nephropathy. He is on Plavix and Xarelto. He had a recent bladder surgery. He said since then (about 10 days ago) he has been having difficulty breathing. He has worse swelling in his right leg. It is quite swollen and tight. He is having orthopnea and has to get up at night and sleep in her recliner. He saw his primary yesterday and they say that there showed some fluid on his x-ray and they increased his Lasix to 60 mg in the morning and 20 mg at night. However he seemed more short of breath today so his brought him into the emergency room. On presentation his O2 sat is 91 on room air. He comes up to 95 with a nasal cannula. He has had some congestion. Some cough on occasion. No fevers. No chest pain. Review of Systems 2 Narrative: Constitutional symptoms: Negative except as documented in HPI. Skin symptoms: Negative except as documented in HPI. Eye symptoms: Negative except as documented in HPI. ENMT symptoms: Negative except as documented in HPI. Respiratory symptoms: Negative except as documented in HPI. Cardiovascular symptoms: Negative except as documented in HPI. Gastrointestinal symptoms: Negative except as documented in HPI. Genitourinary symptoms: Negative except as documented in HPI. Musculoskeletal symptoms: Negative except as documented in HPI. Neurologic symptoms: Negative except as documented in HPI. Psychiatric symptoms: Negative except as documented in HPI. Endocrine symptoms: Negative except as documented in HPI. PFSH ED 2 PFSH: Medical History (Updated 02/04/24 @ 14:54 by Maxine Donahue MD) Postprocedural urethral stricture History of echocardiogram CHF (congestive heart failure) EF 55-60% 10/2023 Rheumatoid arthritis BPH loc w urin obs/LUTS Started on TAMSULOSIN March 2021 for chronic BPH symptoms Atrial fibrillation with RVR Patient converted to normal sinus rhythm with home dose of sotalol. Bladder cancer Low-grade noninvasive papillary urothelial carcinoma cystoscopy done in December 2020, status post intravesical mitomycin after each cystoscopy and status post induction therapy with weekly BCG intravesically from August 18, 2021 through September 22, 2021 Follow-up cystoscopy done on January 16, 2022 showed persistent/recurrence low- grade urothelial carcinoma status post fulguration followed by postop intravesical mitomycin. Proteinuria Coronary artery disease Anticoagulation adequate with anticoagulant therapy xarelto Carotid stenosis Abdominal aortic aneurysm (AAA) s/p repair COPD (chronic obstructive pulmonary disease) Tobacco abuse Peripheral arterial disease Erectile dysfunction Hypertriglyceridemia HTN (hypertension), benign Diabetic neuropathy Diabetes mellitus Surgical History (Updated 02/04/24 @ 14:53 by Maxine Donahue MD) History of colonoscopy History of cardiac catheterization History of left above knee amputation History of bladder surgery transurethral resection/fulguration of bladder tumor (01/04, 04/05, 08/06, 11/07, 02/06 Previous back surgery Hx of appendectomy History of carotid endarterectomy History of abdominal aortic aneurysm (AAA) repair S/P femoral-popliteal bypass surgery LLE x 2 preceding eventual AKA RLE 09/2023 S/P right coronary artery (RCA) stent placement hx of Distal RCA and Prox RCA Family History Father , in his 80's Stroke Mother , at age 83 Diabetes Social History Smoking and tobacco/nicotine status: current every day tobacco/nicotine user cigarettes Packs smoked per day: 1 Alcohol intake: never Substance/Drug Use: never Household members: spouse Marital status: service: Yes branch: [employer] Current occupational status: retired Physical Exam 2 Narrative: EXAM NARRATIVE: General: Alert, no acute distress. Skin: Warm, dry. Head: Normocephalic, atraumatic. Neck: Supple, trachea midline. Eye: Extraocular movements are intact. Ears, nose, mouth and throat: mucosa moist. Cardiovascular: Regular, Normal peripheral perfusion. Brawny edema in his right leg. Respiratory: Lungs are clear to auscultation, respirations are non-labored, breath sounds are equal, Symmetrical chest wall expansion. Gastrointestinal: Soft, Nontender, Non distended, Normal bowel sounds. Musculoskeletal: Normal ROM, left AKA Neurological: Alert and oriented, No focal neurological deficit observed. Psychiatric: Cooperative, appropriate mood & affect. Course 2 Vital Signs: Vital signs: Vital Signs Temperature 97.7 F 02/04/24 11:14 Pulse Rate 71 02/04/24 14:00 Respiratory Rate 27 H 02/04/24 13:00 Blood Pressure 169/65 02/04/24 14:00 Pulse Oximetry 96 02/04/24 14:00 Oxygen Delivery Me thod Nasal Cannula 02/04/24 14:00 Oxygen Flow Rate 2 02/04/24 14:00 MDM - SOB/Dyspnea Medical Decision Making Differential diagnosis for patient with shortness of breath includes but is not limited to and based on the above HPI, review of systems and physical exam: Pneumonia. Bronchitis. Asthma or COPD with acute exacerbation. Acute coronary syndrome / ID. Pulmonary embolism. Anxiety. Congestive heart failure. Viral infections including influenza and Covid-19. Atrial fibrillation. Anxiety. Pleural effusion. Pneumothorax. Workup: Lab work, chest X-ray and EKG ordered to evaluate, rule in and rule out above pathologies Lab Review: Laboratory results were reviewed and interpreted by myself the emergency room physician. White count is 15. He is persistently leukocytotic. Hemoglobin is 11.5. Chest x-ray: Bilateral pleural effusions with persistent opacities. A CT was ordered to evaluate this further.. This was reviewed and interpreted by myself the ER physician. AB.4 4//58. 89% on 2 L nasal cannula. EKG: Time 1206 rate 60 normal sinus rhythm, nonspecific T wave abnormalities, no ectopy, normal AK & QRS intervals, This was reviewed and interpreted by myself the ER physician at 1210 CT of the chest without contrast: Large right pleural effusion. Pulmonary edema. No focal infiltrates. This was reviewed and interpreted by myself the emergency room physician. I also reviewed the radiology report. I reviewed the patient's medical record. Consultation: I spoke with Dr. Donahue who is admitting the patient to the hospitalist service. Reexamination: Patient appears slightly improved on oxygen. He is work of breathing is better. No altered mental status. No focal motor deficits. Assessment and plan: Congestive heart failure Pulmonary edema Pleural effusion Hypoxemia -Stable on 2 L nasal cannula. 40 mg IV Lasix in the emergency room. -I discussed the patient with the hospitalist on-call who is admitting the patient. - Discussed findings and plan with patient. Answered any questions. - All laboratory values were reviewed and interpreted personally by myself, the ER physician - All imaging was reviewed and interpreted personally by myself, the ER physician. - Evaluation and treatment of this problem were appropriate in the emergency setting Lab Data 02/04/24 11:45 02/04/24 12:14 Labs/Radiology: Radiology Impressions Chest X-Ray 02/04/24 11:47 IMPRESSION: 1. Mildly improved bilateral pleural effusions. 2. Persistent bibasilar hazy airspace opacities. Chest CT 02/04/24 12:35 IMPRESSION: 1. New small to moderate size layering RIGHT pleural effusion. Tiny LEFT pleural effusion. 2. Interstitial thickening. Probably related to pulmonary edema fluid overload, new since 05/08/2022. 3. Mildly enlarged and prominent lymph nodes. Probably reactive adenopathy. 4. Frothy secretions in the mid to distal esophagus. Concern for reflux disease. 5. Atherosclerosis aorta. 6. Cholelithiasis. 7. LEFT renal cysts. Laboratory Results WBC 14.75 10^3/uL (3.29-11.43) H 02/04/24 11:45 RBC 3.47 10^6/uL (3.85-5.65) L 02/04/24 11:45 Hgb 11.50 g/dL (11.27-16.99) 02/04/24 11:45 Hct 35.2 % (37-53) L 02/04/24 11:45 MCV 101.4 fl (82-101) H 02/04/24 11:45 MCH 33.1 pg (27-33) H 02/04/24 11:45 MCHC 32.7 g/dL (30-55) 02/04/24 11:45 RDW 17.2 % (12.1-15.1) H 02/04/24 11:45 Plt Count 393 10^3/cmm (157-399) 02/04/24 11:45 MPV 9.7 fL (7.4-10.4) 02/04/24 11:45 Neut % (Auto) 74.8 % 02/04/24 11:45 Lymph % (Auto) 12.3 % 02/04/24 11:45 [place] % (Auto) 10.0 % 02/04/24 11:45 Eos % (Auto) 1.9 % 02/04/24 11:45 Baso % (Auto) 0.5 % 02/04/24 11:45 Neut # (Auto) 11.02 10^3/uL (1.8-7.7) H 02/04/24 11:45 Lymph # (Auto) 1.8 10^3/uL (0.8-4.8) 02/04/24 11:45 [place] # (Auto) 1.5 10^3/uL (0.2-0.9) H 02/04/24 11:45 Eos # (Auto) 0.3 10^3/uL (0.0-0.8) 02/04/24 11:45 Baso # (Auto) 0.1 10^3/uL (0.0-0.1) 02/04/24 11:45 Nucleated RBC % (auto) 0 % 02/04/24 11:45 Nucleated RBCs # 0.0 /100WBC 02/04/24 11:45 Specimen Type Arterial 02/04/24 12:06 Sample Site Radial, right 02/04/24 12:06 ABG pH 7.44 (7.35-7.45) 02/04/24 12:06 ABG pCO2 33.4 mmHg (35-45) L 02/04/24 12:06 ABG pO2 58.5 mmHg (80.0-100.0) L 02/04/24 12:06 ABG HCO3 22.5 mmol/L (22-26) 02/04/24 12:06 ABG O2 Saturation 92.2 02/04/24 12:06 ABG Base Excess -1.2 mmol/L (-2.0-2.0) 02/04/24 12:06 Emigdio Test Pos 02/04/24 12:06 A-a O2 Gradient 6.3 mmHg (5-10) 02/04/24 12:06 Hematocrit 33.9 % (42-52) L 02/04/24 12:06 Hgb O2 Saturation 89.1 % (95-100) L 02/04/24 12:06 Carboxyhemoglobin 2.9 %THgb (0.4-20.1) 02/04/24 12:06 Methemoglobin 0.4 % (0.4-1.5) 02/04/24 12:06 Total Hemoglobin 11.1 g/dL (14-18) L 02/04/24 12:06 Sodium 141.0 mmol/L (131-143) 02/04/24 12:06 Potassium 3.4 mmol/L (3.5-5.0) L 02/04/24 12:06 Glucose 161.0 mg/dL (70-115) H 02/04/24 12:06 Ionized Calcium 1.2 mmol/L (1.1-1.4) 02/04/24 12:06 O2 Delivery Device Nc 02/04/24 12:06 O2 Liters/Min 2.0 % 02/04/24 12:06 Senior Accounting Specialist ID [place] 02/04/24 12:06 Sodium 139 mmol/L (136-145) 02/04/24 12:14 Potassium 3.7 mmol/L (3.5-5.1) 02/04/24 12:14 Chloride 104 mmol/L (98-107) 02/04/24 12:14 Carbon Dioxide 24 mmol/L (22-29) 02/04/24 12:14 Anion Gap 14.7 (5-19) 02/04/24 12:14 BUN 24 mg/dL (8-23) H 02/04/24 12:14 Creatinine 1.4 mg/dL (0.7-1.2) H 02/04/24 12:14 GFR Calculation Not Reportable 02/04/24 12:14 Glucose 171 mg/dL (65-115) H 02/04/24 12:14 Calculated Osmolality 296 mOsm/kg (285-295) H 02/04/24 12:14 Lactic Acid 1.7 mmol/L (0.5-2.2) 02/04/24 11:45 Calcium 8.5 mg/dL (8.5-10.5) 02/04/24 12:14 Total Bilirubin 0.5 mg/dL (0.15-1.2) 02/04/24 12:14 AST 12 U/L (0-40) 02/04/24 12:14 ALT 9 U/L (0-41) 02/04/24 12:14 Alkaline Phosphatase 69 U/L (40-130) 02/04/24 12:14 Troponin T Baseline 74 ng/L (0-15) H 02/04/24 11:45 Troponin T 120 Minute 66.38 ng/L (0-15) H 02/04/24 14:06 Delta Troponin T -7.62 ABS# (0-10) L 02/04/24 14:06 NT-Pro-B Natriuret Pep 8321 pg/mL (0-450) H 02/04/24 12:14 Total Protein 6.6 g/dL (6.6-8.7) 02/04/24 12:14 Albumin 3.0 g/dL (3.5-5.2) L 02/04/24 12:14 Globulin 3.6 g/dL (1.3-4.6) 02/04/24 12:14 All radiology interpretation(s) finalized by discharge Discharge Plan Discharge Patient Disposition: Admitted As Inpatient Clinical Impression: Congestive heart failure, Pulmonary edema, Pleural effusion, Hypoxemia, Edema Condition: Stable Coding Level of Care Code ED Line Construction Superintendent for Sarah Terrazas
[2024-02-04] MEDS: FUROsemide 10 mg/mL SDV 10mL 80 MG IVP (12:02)
--- NOTE | 2024-02-04 12:06 | ECG_ITS ---
[facility] Test Date: 2024-02-04 Pat Name: Ashvin Hickey Department: Room: Gender: Male Room Service Manager: : 1945 Requested By: Alicia Navarrete Order Number: [id number] Arvind MD: Gloria Lucas M.D. Measurements Intervals [place] Rate: 60 P: 27 WV: 197 QRS: -16 QRSD: 97 T: 123 QT: 432 QTc: 434 Interpretive Statements SINUS RHYTHM LEFT VENTRICULAR HYPERTROPHY AND ST-T CHANGE [VOLTAGE CRITERIA PLUS ST/T ABNORMALITY] Compared to ECG 10/21/2023 20:26:37 ST (T wave) deviation now present Atrial fibrillation no longer present Left anterior fascicular block no longer present T-wave abnormality no longer present Electronically Signed On 02-05-2024 0:23:10 CDT by Gloria Lucas M.D. [id number]
[2024-02-04 12:09] LABS: Lactic Sepsis W/Reflex 1.7 mmol/L (0.5-2.2)
[2024-02-04 12:11] LABS: Troponin(5th) Baseline 74 ng/L (0-15)
--- NOTE | 2024-02-04 12:18 | PC.PHAR ---
HAS GOOD MEDICATION LIST. VERIFIED
[2024-02-04 12:25] LABS: ABG PCO2 33.4 mmHg (35-45); ABG PH Result 7.44 (7.35-7.45); Alveolar-Arterial Oxygen Gradi 6.3 mmHg (5-10); Arterial Blood Gas Hematocrit 33.9 % (42-52); Base Excess ABG -1.2 mmol/L (-2.0-2.0); Blood Gas Allen Test Pos; Blood Gas Operator Identificat WALCI; Blood Gas Sample Site Radial, right; Blood Gas Sample Type Arterial; Carboxyhemoglobin 2.9 %THgb (0.4-20.1); HCO3 ABG 22.5 mmol/L (22-26); HGB O2 Sat 89.1 % (95-100); Ionized Calcium Level - ABG 1.2 mmol/L (1.1-1.4); Methemoglobin 0.4 % (0.4-1.5); Oxygen Device NC; Oxygen Saturation ABG 92.2; PO2 ABG 58.5 mmHg (80.0-100.0); Potassium Level - ABG 3.4 mmol/L (3.5-5.0); Total Hemoglobin 11.1 g/dL (14-18)
--- NOTE | 2024-02-04 12:35 | CT_ITS ---
WS: [id number] CT chest wo con [id number] HISTORY: further evaluation of lung abnormalities. TECHNIQUE: Axial imaging performed through the thorax. Coronal and sagittal reformats are submitted. All CT scans at [facility] use at least one of these dose optimization techniques: automated exposure control; mA and/or kV adjustment per patient size (includes targeted exams where dose is mat ched to clinical indication); or iterative reconstruction. CONTRAST: None DLP: 561.51 mGy.cm COMPARISON: 05/08/2022 Study compromised by breathing artifact. Lungs and central airway: Chronic interstitial changes throughout both lungs are similar to the prior studies. Peripheral interstitial prominence and reticulations. No mass. Pleura: Small to moderate layering RIGHT pleural effusion is new since 05/08/2022. Heart and pericardium: Mild cardiomegaly. Mediastinum and luci: Mediastinal and hilar lymph nodes have increased slightly since 05/08/2022. This may be reactive. Largest lymph node is subcarinal measuring 2.2 cm in diameter. Frothy secretions in the mid to distal esophagus. Vessels: Moderate atherosclerosis aorta. Normal size pulmonary artery. Chest wall and lower neck: Gynecomastia. Upper abdomen: Aortic endograft noted in the upper abdominal aorta. Heavy calcification and probable occlusion SMA. LEFT renal cysts. Cholelithiasis. Reidentified is an 11 mm soft tissue nodule in the a nterior RIGHT upper abdomen. Probably a sebaceous cyst. Osseous structures: Increase in thoracic kyphosis. CT/CT chest wo con [id number] IMPRESSION: 1. New small to moderate size layering RIGHT pleural effusion. Tiny LEFT pleur al effusion. 2. Interstitial thickening. Probably related to pulmonary edema fluid overload , new since 05/08/2022. 3. Mildly enlarged and prominent lymph nodes. Probably reactive adenopathy. 4. Frothy secretions in the mid to distal esophagus. Concern for reflux diseas e. 5. Atherosclerosis aorta. 6. Cholelithiasis. 7. LEFT renal cysts.
[2024-02-04 12:50] LABS: Alanine Aminotransferase 9 U/L (0-41); Alkaline Phosphatase 69 U/L (40-130); Anion Gap 14.7 (5-19); Aspartate Amino Transferase 12 U/L (0-40); Blood Urea Nitrogen 24 mg/dL (8-23); Calcium 8.5 mg/dL (8.5-10.5); Carbon Dioxide 24 mmol/L (22-29); Chloride 104 mmol/L (98-107); Globulin 3.6 g/dL (1.3-4.6); Glucose 171 mg/dL (65-115); NT Pro B Type Natriuretic Pept 8321 pg/mL (0-450); Osmolality Calculated 296 mOsm/kg (285-295); Potassium 3.7 mmol/L (3.5-5.1); Sodium 139 mmol/L (136-145); Total Bilirubin 0.5 mg/dL (0.15-1.2); Total Protein 6.6 g/dL (6.6-8.7)
[2024-02-04 13:07] LABS: Creatinine Clr Calc Pharmacy 45.1545
--- NOTE | 2024-02-04 13:50 | ECG_ITS ---
[facility] Test Date: 2024-02-04 Pat Name: Ashvin Hickey Department: Room: Gender: Male Shaker Screen Operator: : 1945 Requested By: Alicia Navarrete Order Number: [id number] Arvind MD: Gloria Lucas M.D. Measurements Intervals [place] Rate: 69 P: 55 WV: 185 QRS: -10 QRSD: 106 T: 126 QT: 401 QTc: 430 Interpretive Statements SINUS RHYTHM ST DEVIATION AND MODERATE T-WAVE ABNORMALITY, CONSIDER ANTEROLATERAL ISCHEMIA [-0.1+ mV T-WAVE IN V3-V6] Compared to ECG 02/04/2024 12:06:48 T-wave abnormality now present Possible ischemia now present Left ventricular hypertrophy no longer present ST (T wave) deviation no longer present Electronically Signed On 02-05-2024 0:32:40 CDT by Gloria Lucas M.D. [id number]
--- NOTE | 2024-02-04 13:54 | P.HP_ITS ---
Providers/Chief Complaint 2 Admitting Physician: Maxine Donahue MD Primary Care Provider: Bree Perkins MD Chief Complaint: sob History of Present Illness Ashvin Hickey is a 78 year old male who presented to the emergency room with chief complaint of increasing difficulty breathing. Mr. Hickey has a known history of CHF with a preserved ejection fraction. He was last here in September of this year when he had worsening anginal symptoms. He underwent a cardiac catheterization at that time that showed patent RCA stents but a diffusely diseased narrow caliber left circumflex. Recommendations were for medical management. At that time echocardiogram showed stable EF at 55 to 60% compared to prior studies. Adjustments were made to his home medications to include addition of isosorbide mononitrate and diltiazem. He had been doing fairly well on that regimen, along with his usual diuretic therapy, LISA inhibitor, hydralazine and sotalol along with other chronic medicines noted below, until recently. About 10 days ago he had cystoscopy with transurethral resection of a bladder tumor. 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 Since Dr. Corral retired he has been going to Dr. Moreno at [facility] in [place]. Postprocedure he had usual urinary symptoms that resolved but he began having increasing shortness of breath. According to his he has had progressively worsening nonproductive cough and a rattling sound. His work of breathing has been worsening. She took him to see his primary care provider yesterday and Dr. Perkins increased his Lasix from the usual 20 mg twice a day to 40 mg in the morning and 20 mg in the evening. Despite this his breathing worsened overnight. He was unable to sleep having to get up to get to the chair. He has had some significant coughing with an episode or 2 of posttussive emesis of what was really just frothy clear whitish fluid. No blood was noted. No real mucus. Mr. Hickey called Dr. Perkins's office again today and they recommended that he come to the emergency room for further evaluation. He does have a history of nicotine dependence with cigarettes and continues to smoke a pack per day. He does not carry a diagnosis of COPD and has not ever been on oxygen before. He has had a little bit of allergy symptoms at times but they have not been too bad recently. No increased runny nose postnasal drainage or sore throat. Just difficulty catching his breath with exertion. On arrival today oxygen saturations were noted to be as low as 85% on room air. He was given 2 L of oxygen by nasal cannula with improvement to the low 90s. He had notable edema and chest x-ray along with CT scan showing right pleural effusion. BNP was significantly elevated compared to prior values. He was given 80 mg of IV Lasix and request was made for admission. He has had some chest discomfort primarily during episodes of coughing. Does not really describe any pleuritic discomfort. No hemoptysis. He has had a low-grade fever a couple of times the last 2 days. His treated with ibuprofen in addition to Tylenol. No known sick contacts. Other than an episode of to a posttussive emesis no other GI symptoms to speak of. Again not having any ongoing dysuria or hematuria from recent procedure. No abdominal pain. He has had increasing swelling to his right lower extremity as well as increased abdominal girth lately. Today he noticed a sore to his right ankle area that is new. No other sores noted. No new aches and pains. Left stump without any lesions. He does not like being in the hospital and admits that if his had not made him come he probably would not of come in today but appreciates that he clinically needs to be here given the low oxygenation and difficulty breathing he is experiencing. He is being admitted to hospitalist service. Blood pressures have continued to escalate despite IV diuresis given today. He did take his usual home medicines this morning as scheduled including morning dose of sotalol, lisinopril, morning hydralazine, diltiazem and isosorbide. Review of Systems 2 General: Reports: Other (ROS as per HPI or as otherwise noted here) Stanislav/Lymph: Reports: easy bruising (On Xarelto) Medications/Allergies Home Medications Medication Instructions Recorded Confirmed Last Taken Type ferrous sulfate 325 mg (65 mg 325 mg PO QAM 02/10/20 02/04/24 02/03/24 History iron) tablet pantoprazole 40 mg tablet,delayed 40 mg PO BEDTIME 07/05/20 02/04/24 02/03/24 History release duloxetine 20 mg capsule,delayed 20 mg PO QAM 11/29/20 02/04/24 02/04/24 History release (Cymbalta) clopidogrel 75 mg tablet (Plavix) 75 mg PO QAM 03/09/21 02/04/24 02/04/24 History tamsulosin 0.4 mg capsule 0.4 mg PO QPM #90 caps 12/15/21 02/04/24 02/03/24 Rx folic acid 1 mg tablet 1 mg PO QAM 06/28/22 02/04/24 02/04/24 History sucralfate 1 gram tablet 1 g PO QID PRN UNKNOWN 07/12/22 02/04/24 09/12/22 20:00 History etanercept 50 mg/mL (1 mL) 50 mg SUBCUT Q7D 12/27/22 02/04/24 01/31/24 History subcutaneous pen injector (Enbrel Hariniick) rivaroxaban 20 mg tablet (Xarelto) 20 mg PO BEDTIME #90 tabs 02/18/23 02/04/24 02/03/24 Rx lisinopril 40 mg tablet 40 mg PO QAM 02/20/23 02/04/24 02/04/24 History sotalol 80 mg tablet 120 mg (1.5 x 80 mg) PO BID #180 06/27/23 02/04/24 02/04/24 Rx tabs gabapentin 100 mg capsule 200 mg PO TID 08/21/23 02/04/24 02/04/24 History insulin glargine 100 unit/mL (3 20 unit SUBCUT BID 08/21/23 02/04/24 02/04/24 History mL) subcutaneous pen (Lantus Solostar U-100 Insulin) metformin 500 mg tablet 500 mg PO BID 08/21/23 02/04/24 02/04/24 History methotrexate sodium 2.5 mg tablet 20 mg PO Q7D 08/21/23 02/04/24 02/03/24 History acetaminophen 500 mg tablet 500 mg PO Q6H PRN Pain 10/18/23 02/04/24 Unknown History cetirizine 10 mg tablet 10 mg PO BEDTIME allergy symptoms 10/18/23 02/04/24 02/03/24 History insulin aspart U-100 100 unit/mL See Rx Instructions .Route .COMPLEX 10/18/23 02/04/24 02/04/24 History (3 mL) subcutaneous pen (Novolog FlexPen U-100 Insulin aspart) nitroglycerin 0.4 mg sublingual 0.4 mg sublingual Q5M PRN Chest 10/18/23 02/04/24 Unknown History tablet (Nitrostat) Pain potassium chloride 10 mEq 20 meq PO QAM 10/18/23 02/04/24 02/04/24 History capsule,extended release diltiazem HCl 180 mg 180 mg PO DAILY #90 caps 10/22/23 02/04/24 02/04/24 Rx capsule,extended release 24 hr (Cartia XT) pravastatin 40 mg tablet 40 mg PO DAILY #90 tabs 10/22/23 02/04/24 02/04/24 Rx hydralazine 50 mg tablet 50 mg PO BID #180 tabs 12/17/23 02/04/24 02/04/24 Rx albuterol sulfate 90 mcg/actuation 1 puff inhalation Q4H PRN Wheezing 02/04/24 02/04/24 Unknown History aerosol inhaler furosemide 40 mg tablet 40 mg PO BID 02/04/24 02/04/24 02/04/24 History isosorbide mononitrate 60 mg 30 mg PO DAILY 02/04/24 02/04/24 02/04/24 History tablet,extended release 24 hr multivit,Ca,min-iron 8 mg-folic 1 tab PO QAM 02/04/24 02/04/24 02/04/24 History acid 200 mcg-lycopene 600 mcg tablet (Centrum Men) pen needle, diabetic 32 gauge x 02/04/24 02/04/24 Unknown History sennosides 8.6 mg tablet (Senokot) 17.2 mg PO BEDTIME PRN Constipation 02/04/24 02/04/24 Unknown History Allergies Allergy/AdvReac Type Severity Reaction Status Date / Time No Known Allergies Allergy Verified 11/05/23 12:57 PFSH Acute 2 PFSH: Medical History (Updated 02/04/24 @ 15:10 by Maxine Donahue MD) Depression Postprocedural urethral stricture History of echocardiogram CHF (congestive heart failure) EF 55-60% 10/2023 Rheumatoid arthritis BPH loc w urin obs/LUTS Started on TAMSULOSIN March 2021 for chronic BPH symptoms Atrial fibrillation with RVR Patient converted to normal sinus rhythm with home dose of sotalol. Bladder cancer Low-grade noninvasive papillary urothelial carcinoma cystoscopy done in December 2020, status post intravesical mitomycin after each cystoscopy and status post induction therapy with weekly BCG intravesically from August 18, 2021 through September 22, 2021 Follow-up cystoscopy done on January 16, 2022 showed persistent/recurrence low- grade urothelial carcinoma status post fulguration followed by postop intravesical mitomycin. Proteinuria Coronary artery disease Anticoagulation adequate with anticoagulant therapy xarelto Carotid stenosis Abdominal aortic aneurysm (AAA) s/p repair COPD (chronic obstructive pulmonary disease) Tobacco abuse Peripheral arterial disease Erectile dysfunction Hypertriglyceridemia HTN (hypertension), benign Diabetic neuropathy Diabetes mellitus Surgical History (Updated 02/04/24 @ 14:53 by Maxine Donahue MD) History of colonoscopy History of cardiac catheterization History of left above knee amputation History of bladder surgery transurethral resection/fulguration of bladder tumor (01/04, 04/05, 08/06, 11/07, 02/06 Previous back surgery Hx of appendectomy History of carotid endarterectomy History of abdominal aortic aneurysm (AAA) repair S/P femoral-popliteal bypass surgery LLE x 2 preceding eventual AKA RLE 09/2023 S/P right coronary artery (RCA) stent placement hx of Distal RCA and Prox RCA Family History Father , in his 80's Stroke Mother , at age 83 Diabetes Social History Smoking and tobacco/nicotine status: current every day tobacco/nicotine user cigarettes Packs smoked per day: 1 Alcohol intake: never Substance/Drug Use: never Household members: spouse Marital status: service: Yes branch: [employer] Current occupational status: retired Other PFS information: Supplemental [facility] Information: Has a wheelchair Vitals/I&O/Wt Last Vital Signs Temp 97.7 F 02/04/24 11:14 Pulse 65 02/04/24 12:55 Resp 32 H 02/04/24 12:55 BP 173/145 02/04/24 12:55 Pulse Ox 95 02/04/24 12:55 O2 Del Method Nasal Cannula 02/04/24 12:35 O2 Flow Rate 2 02/04/24 12:35 Selected Entries 02/04/24 14:20 02/04/24 15:10 02/04/24 15:25 Blood Pressure 221/107 Pulse Oximetry 93 Oxygen Flow Rate 2 Weight last 48 hrs Weight 78.018 kg Physical Exam 2 Narrative: Patient is awake and alert. Able to provide history himself when he is not coughing. He has a wet sounding cough frequently throughout examination. He is oriented to person place and situation. Normocephalic. Extraocular movements are intact. Arcus senilis is noted bilaterally. Nasopharynx clear. Oropharynx with moist mucous membranes. Fair dentition. No significant postnasal drainage noted. Neck is supple. JVD to the angle of the jaw. Lungs are remarkable for decreased breath sounds at the right base compared to the left base. Rales are noted bilaterally more prominent on the right than the left. Tachypnea with some pursed lip breathing appreciated. Every now and then demonstrates supraclavicular retractions during examination and has to pause for some time to catch his breath after leaning forward to allow me to adequately examine posterior lungs. Cardiovascular exam reveals a regular rate and rhythm. Heart sounds are distant. 1+ radial pulses bilaterally. Faint dorsalis pedis pulse on the right foot. Capillary refill is around 3 seconds. Pitting edema is noted to mid thigh on the right lower extremity. The left stump however is soft without the same degree of edema appreciated. There is an approximately 1 cm diameter superficial scabbed sore posteriorly to the right lower extremity at the ankle overlying the Achilles tendon region. No other sores noted to the right foot/ankle region. There is some serous oozing here but no surrounding erythema, odor or purulence. No desquamation. Speech is clear, face symmetric. Sensation intact to the right foot. Data 02/04/24 11:45 02/04/24 12:14 Other Labs: Radiology Impressions Chest X-Ray 02/04/24 11:47 IMPRESSION: 1. Mildly improved bilateral pleural effusions. 2. Persistent bibasilar hazy airspace opacities. Chest CT 02/04/24 12:35 IMPRESSION: 1. New small to moderate size layering RIGHT pleural effusion. Tiny LEFT pleural effusion. 2. Interstitial thickening. Probably related to pulmonary edema fluid overload, new since 05/08/2022. 3. Mildly enlarged and prominent lymph nodes. Probably reactive adenopathy. 4. Frothy secretions in the mid to distal esophagus. Concern for reflux disease. 5. Atherosclerosis aorta. 6. Cholelithiasis. 7. LEFT renal cysts. Laboratory Results WBC 14.75 10^3/uL (3.29-11.43) H 02/04/24 11:45 RBC 3.47 10^6/uL (3.85-5.65) L 02/04/24 11:45 Hgb 11.50 g/dL (11.27-16.99) 02/04/24 11:45 Hct 35.2 % (37-53) L 02/04/24 11:45 MCV 101.4 fl (82-101) H 02/04/24 11:45 MCH 33.1 pg (27-33) H 02/04/24 11:45 MCHC 32.7 g/dL (30-55) 02/04/24 11:45 RDW 17.2 % (12.1-15.1) H 02/04/24 11:45 Plt Count 393 10^3/cmm (157-399) 02/04/24 11:45 MPV 9.7 fL (7.4-10.4) 02/04/24 11:45 Neut % (Auto) 74.8 % 02/04/24 11:45 Lymph % (Auto) 12.3 % 02/04/24 11:45 [place] % (Auto) 10.0 % 02/04/24 11:45 Eos % (Auto) 1.9 % 02/04/24 11:45 Baso % (Auto) 0.5 % 02/04/24 11:45 Neut # (Auto) 11.02 10^3/uL (1.8-7.7) H 02/04/24 11:45 Lymph # (Auto) 1.8 10^3/uL (0.8-4.8) 02/04/24 11:45 [place] # (Auto) 1.5 10^3/uL (0.2-0.9) H 02/04/24 11:45 Eos # (Auto) 0.3 10^3/uL (0.0-0.8) 02/04/24 11:45 Baso # (Auto) 0.1 10^3/uL (0.0-0.1) 02/04/24 11:45 Nucleated RBC % (auto) 0 % 02/04/24 11:45 Nucleated RBCs # 0.0 /100WBC 02/04/24 11:45 Specimen Type Arterial 02/04/24 12:06 Sample Site Radial, right 02/04/24 12:06 ABG pH 7.44 (7.35-7.45) 02/04/24 12:06 ABG pCO2 33.4 mmHg (35-45) L 02/04/24 12:06 ABG pO2 58.5 mmHg (80.0-100.0) L 02/04/24 12:06 ABG HCO3 22.5 mmol/L (22-26) 02/04/24 12:06 ABG O2 Saturation 92.2 02/04/24 12:06 ABG Base Excess -1.2 mmol/L (-2.0-2.0) 02/04/24 12:06 Emigdio Test Pos 02/04/24 12:06 A-a O2 Gradient 6.3 mmHg (5-10) 02/04/24 12:06 Hematocrit 33.9 % (42-52) L 02/04/24 12:06 Hgb O2 Saturation 89.1 % (95-100) L 02/04/24 12:06 Carboxyhemoglobin 2.9 %THgb (0.4-20.1) 02/04/24 12:06 Methemoglobin 0.4 % (0.4-1.5) 02/04/24 12:06 Total Hemoglobin 11.1 g/dL (14-18) L 02/04/24 12:06 Sodium 141.0 mmol/L (131-143) 02/04/24 12:06 Potassium 3.4 mmol/L (3.5-5.0) L 02/04/24 12:06 Glucose 161.0 mg/dL (70-115) H 02/04/24 12:06 Ionized Calcium 1.2 mmol/L (1.1-1.4) 02/04/24 12:06 O2 Delivery Device Nc 02/04/24 12:06 O2 Liters/Min 2.0 % 02/04/24 12:06 Wheel Grinder ID Walci 02/04/24 12:06 Sodium 139 mmol/L (136-145) 02/04/24 12:14 Potassium 3.7 mmol/L (3.5-5.1) 02/04/24 12:14 Chloride 104 mmol/L (98-107) 02/04/24 12:14 Carbon Dioxide 24 mmol/L (22-29) 02/04/24 12:14 Anion Gap 14.7 (5-19) 02/04/24 12:14 BUN 24 mg/dL (8-23) H 02/04/24 12:14 Creatinine 1.4 mg/dL (0.7-1.2) H 02/04/24 12:14 GFR Calculation Not Reportable 02/04/24 12:14 Glucose 171 mg/dL (65-115) H 02/04/24 12:14 Calculated Osmolality 296 mOsm/kg (285-295) H 02/04/24 12:14 Lactic Acid 1.7 mmol/L (0.5-2.2) 02/04/24 11:45 Calcium 8.5 mg/dL (8.5-10.5) 02/04/24 12:14 Total Bilirubin 0.5 mg/dL (0.15-1.2) 02/04/24 12:14 AST 12 U/L (0-40) 02/04/24 12:14 ALT 9 U/L (0-41) 02/04/24 12:14 Alkaline Phosphatase 69 U/L (40-130) 02/04/24 12:14 Troponin T Baseline 74 ng/L (0-15) H 02/04/24 11:45 NT-Pro-B Natriuret Pep 8321 pg/mL (0-450) H 02/04/24 12:14 Total Protein 6.6 g/dL (6.6-8.7) 02/04/24 12:14 Albumin 3.0 g/dL (3.5-5.2) L 02/04/24 12:14 Globulin 3.6 g/dL (1.3-4.6) 02/04/24 12:14 Other data: ECHO 10/2023 CONCLUSIONS LV systolic function is normal with EF of 55 to 60%. Left atrial dilation. Trace mitral regurgitation. Mild tricuspid regurgitation. Compared to prior echocardiogram from 2020, no significant changes are seen CATH 10/2023 Conclusions 1. Significant, diffuse disease of the mid to distal small caliber left circumflex artery. We will manage it medically given size of the vessel. 2. Patent prior stents in RCA. A&P Assessment and plan (1) Acute on chronic heart failure with preserved ejection fraction: Primary diagnosis as evidenced by increasing lower extremity edema, increasing shortness of breath with nonproductive cough, posttussive emesis with white frothy fluid, pleural effusion on the right side, elevated BNP and hypoxemia with a slight bump in BUN and creatinine. He has a known history of CHF with preserved ejection fraction. Last echocardiogram in October of this year showed ejection fraction 55 to 60%. Recently had a fairly routine for him surgical procedure with cystoscopy and transurethral resection of a bladder tumor about 10 days ago. Since then he has had progressive decline. No report of pleuritic type chest pain or increasing chest pain but his activity level has decreased. His made him seek medical care yesterday at which time diuretic was increased. Today he was not any better prompting the visit to the emergency room under the guidance of his PCP. If it had been left to him he would not have presented to the hospital at this time because he does not like being here. He has had some low-grade fever the past couple of days which brings up the possibility of an infectious process contributing. He is a longtime smoker. Does not formally carry a diagnosis of COPD but COPD exacerbation could also be contributing as could have pulmonary infection. He is immunocompromised by chronic Enbrel and methotrexate therapy for his rheumatoid arthritis. Currently requiring oxygen therapy which he has never required before. Pleural effusion related to rheumatoid arthritis or a malignancy is also within the differential and should be considered if pleural effusion and overall symptoms do not improve with planned diuresis. Vascular etiology of presentation including acute cardiac ischemia/angina or thrombotic/embolic event also within differential but seem less likely based on presenting symptoms that are primarily respiratory in nature without other associated complaints. He is chronically on Xarelto. Had been held for his procedure but resumed thereafter. He did have a cardiac catheterization in September of this year that showed patent RCA stents with diffuse disease and a small caliber left circumflex for which medical management was recommended. (2) Accelerated hypertension: Significant hypertension currently which I suspect is multifactorial from volume overload/CHF along with him not being happy with needing to be hospitalized presently. He is chronically on Lasix, hydralazine, isosorbide, lisinopril, sotalol. He took all of his usual morning medications today and has additionally received an extra 80 mg of Lasix. The hypertension appears secondary rather than primary to me currently. (3) Low grade fever: Low-grade temperature, 100.5-100.9 in the days preceding admission. No clear acute infection but with immunocompromise brought about by Enbrel and methotrexate therapy chronically for his rheumatoid arthritis at high risk of developing significant infection. Possible sources of infection include a coinciding upper respiratory infection or bronchitis, urinary tract from recent procedure and even skin from new wound noted to right lower extremity. Has an associated increase in white blood count though that could be reactive from distress related to hypoxemia and such related to #1. Lactic acid is normal. Not meeting criteria for sepsis at this time but should be closely monitored given comorbid risks. (4) Rheumatoid arthritis: Chronically on Enbrel and methotrexate. Has been on steroids in the past. None recently. Also on chronic folate, iron and multivitamin. (5) Coronary artery disease: With history of previous right coronary artery stents. Most recent arteriogram in October of this year demonstrated patent stents. He had a narrow, small caliber left circumflex artery for medical management identified. Echocardiogram at that time showed no change compared to prior studies from 2020 with ejection fraction at 55 to 60%. He is chronically on diuretic therapy with potassium replacement, LISA inhibitor, scheduled and as needed nitrates, Plavix. Follows with Dr. Mays here. (6) Diabetes mellitus: Type II, insulin requiring, with diabetic peripheral neuropathy, peripheral arterial disease and likely chronic kidney disease stage II if not stage IIIa. Hemoglobin A1c is managed by primary care provider. In addition to insulin therapy, patient is on metformin and gabapentin. 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 Had femoropopliteal bypass right lower extremity in September of this year. Has a recently noted sore to the posterior right lower extremity near the Achilles tendon with some oozing of clear fluid and scab formation without any surrounding erythema at presentation. Has chronic stasis changes to the right lower extremity. (8) Hypertriglyceridemia: Chronically on pravastatin therapy. Lipid panel followed by primary care provider. (9) Anticoagulation adequate with anticoagulant therapy: Chronically on Xarelto due to history of atrial fibrillation along with known history of peripheral arterial disease. (10) Atrial fibrillation: History of atrial fibrillation in the past, chemical cardioversion with sotalol which she remains on. He is on anticoagulation. Also on chronic diltiazem. Current rhythm is sinus. (11) Bladder cancer: Low-grade papillary urothelial carcinoma. Had been followed by Dr. Corral until his fci. Currently following with Dr. Du Moreno at [facility] in [place]. Has regular evaluations and cystoscopies with transurethral resection of the bladder tumors. Most recent was January 27, 2024. Has had a normal recovery pattern from a bladder standpoint since that procedure without ongoing acute urinary symptoms described. Qualifiers: Bladder location: overlapping sites Qualified Code(s): C67.8 - Malignant neoplasm of overlapping sites of bladder (12) BPH loc w urin obs/LUTS: Chronically on Flomax (13) Depression: Chronically on duloxetine (14) Nicotine dependence, cigarettes, with other nicotine-induced disorders: Chronically smokes a pack a day. Plan Chronically on cetirizine for allergy symptoms Chronically on pantoprazole and as needed medications for constipation Inpatient admission Continue IV diuresis Strict I's and O's and daily weights with fluid restriction Monitor renal function closely, repeat labs ordered for in the morning Continue home nitrates (Imdur) with plan for increase in dose tomorrow from 30 to 60 daily Have ordered some additional hydralazine and topical nitroglycerin presently; if blood pressures do not improve will consider nitroglycerin drip Continuing home lisinopril, diltiazem, sotalol at usual doses for now Will recheck CXR after diuresis Check urinalysis Empiric doxycycline for coverage of possible pulmonary infection in this immunocompromised patient Breathing treatments as needed Received last dose of Enbrel on January 31 and took last dose of methotrexate on February 02 Continue as needed Tylenol Continue serial cardiac enzymes and EKGs monitoring for signs of ischemia Telemetry monitoring Currently holding home metformin, continuing long-acting insulin at a slightly decreased dose along with sliding scale insulin as needed Cardiac consistent carbohydrate diet Continue home Plavix along with statin therapy Continue home Xarelto Continue home Flomax Continue home citalopram Nicotine patch has been ordered Continue home pantoprazole Continue home as needed laxatives along with scheduled docusate VTE prophylaxis: Chronically on Xarelto which is being continued GI Prophylaxis: Chronically on PPI Antibiotics: Doxycycline started empirically secondary to immunocompromise and low-grade fevers along with increase in white count Pending studies: Urinalysis and serial cardiac enzyme, repeat CXR for morning, am labs for 02/04 Telemetry: Ordered secondary to presentation and known history of atrial fibrillation Meléndez: not currently indicated though monitoring urine output closely Line(s): peripheral IVs Disposition plan: Home with outpatient follow up anticipated at this time. Appointment scheduled at [facility] heart and lung clinic on February 18 at [address] Mast that can be used for hospital follow-up as well in addition to follow-up with PCP. He may require adjustment in usual home medication dosages such as for diuretics and nitrates along with outpatient labs for renal function monitoring post discharge. Recommend keeping a blood pressure log at home as well. Code Status: Full Code Supportive care otherwise Findings, concerns and plans were discussed with patient and his and they both were given an opportunity to ask questions Attestations 2 Medical Necessity Statement*: Anticipated stay greater than two midnights in this gentleman presenting with acute on chronic CHF associated with a moderate right-sided pleural effusion and new oxygen requirement along with accelerated hypertension. He is receiving IV diuresis currently after attempts to increase oral diuretics were not successful in the outpatient setting. He has multiple comorbid conditions as well- documented here. Additionally he has some elevation in white count and a report of a low-grade fever the last couple of days. He is immunocompromised from treatment for rheumatoid arthritis. He is being monitored closely for worsening cardiopulmonary symptoms in addition to possibility of infection. Diagnoses Acute on chronic heart failure with preserved ejection fraction I50.33 Accelerated hypertension I10 Low grade fever R50.9 Rheumatoid arthritis M06.9 Coronary artery disease I25.10 Type 2 diabetes mellitus with hyperglycemia, with long-term current use of insulin E11.65; Z79.4 Diabetes mellitus type: type 2 Diabetes mellitus terminal operations manager insulin use: with assisted use Diabetes mellitus complication status: with hyperglycemia Peripheral arterial disease I73.9 Hypertriglyceridemia E78.1 Anticoagulation adequate with anticoagulant therapy Z79.01 Atrial fibrillation I48.91 Malignant neoplasm of overlapping sites of bladder C67.8 Bladder location: overlapping sites BPH loc w urin obs/LUTS N40.1 Depression F32.A Nicotine dependence, cigarettes, with other nicotine-induced disorders F17.218
[2024-02-04 14:37] LABS: Troponin 5 2HR 66.38 ng/L (0-15)
[2024-02-04 14:42] LABS: Troponin 5 2HR Delta -7.62 ABS# (0-10)
[2024-02-04] MEDS: potassium chloride ER 10 mEq Tablet PO (15:00)
[2024-02-04] MEDS: nicotine 21 mg Patch 1 PATCH TRANSDERMA (15:02)
[2024-02-04] MEDS: nitroglycerin 1 gm/inch oint Pkt 1 INCH TOPICAL (15:02)
[2024-02-04] MEDS: hyDRALAzine 20 mg/mL INJ 1 mL 10 MG IVP (15:03)
[2024-02-04 16:34] LABS: Add Urine Microscopic? YES; Bilirubin Urine Neg (Negative); Blood Urine Neg (Negative); Glucose Urine UA Norm (Normal); Ketones Urine Negative (Negative); Leukocyte Esterase Urine Negative (Negative); Nitrate Urine Negative (Negative); Protein Urine 2+ (Negative); Urine Appearance Clear (CLEAR); Urine Color Yellow (Yellow); Urobilinogen Urine Norm (Negative); pH Urine 6 (5-7)
[2024-02-04 16:56] LABS: RBC Urine 0-4 /hpf (0-2)
[2024-02-04 16:57] LABS: Add Urine Culture? No; Oval Fat Bodies Urine 1+ /hpf; Squamous Epithelial Cell Urine 0-4 /hpf (0-5)
[2024-02-04] MEDS: acetaminophen 500 mg Tablet PO (17:18)
[2024-02-04] MEDS: hyDRALAzine 50 mg Tablet PO ×2 (17:18→22:28)
[2024-02-04] MEDS: docusate sodium 100 mg Capsule PO (17:18)
[2024-02-04] MEDS: doxycycline 100 mg Tablet PO (17:19)
[2024-02-04] MEDS: tamsulosin 0.4 mg Capsule 0.400000000000000022 MG PO (17:19)
[2024-02-04 17:34] LABS: Glucose Point of Care 148 mg/dL (70-110)
[2024-02-04] MEDS: insulin lispro 100 unit/1 mL SUBCUT ×2 (18:04→22:29)
[2024-02-04 18:33] LABS: Troponin 5 6HR 63.88 ng/L (0-15)
[2024-02-04 18:35] LABS: Troponin 5 6HR Delta -10.12 ng/L (0-12)
[2024-02-04 20:40] LABS: Glucose Point of Care 203 mg/dL (70-110)
[2024-02-04] MEDS: gabapentin 100 mg Capsule 200 MG PO (22:28)
[2024-02-04] MEDS: rivaroxaban 10 mg Tablet 20 MG PO (22:28)
[2024-02-04] MEDS: pantoprazole DR 40 mg Tablet PO (22:28)
[2024-02-04] MEDS: sotalol 80 mg Tablet 120 MG PO (22:29)
[2024-02-04] MEDS: cetirizine 10 mg Tablet PO (22:29)
[2024-02-04] MEDS: insulin glargine 100 units/1 mL 15 UNIT SUBCUT (22:30)
[2024-02-05] VITALS (9 sets, daily range): BP systolic 109–124; BP diastolic 49–74; PULSE 75–125; RESP 17–31; TEMP 36.6–37.1; O2SAT 93–99
[2024-02-05] MEDS: FUROsemide 10 mg/mL SDV 10mL 60 MG IVP ×2 (03:51→15:03)
[2024-02-05] MEDS: ferrous sulfate EC 325 mg Tablet PO (05:40)
[2024-02-05] MEDS: clopidogrel 75 mg Tablet PO (05:41)
[2024-02-05] MEDS: duloxetine 20 mg Capsule PO (05:41)
[2024-02-05] MEDS: folic acid 1 mg Tablet PO (05:41)
[2024-02-05 06:32] LABS: Glucose Point of Care 134 mg/dL (70-110)
[2024-02-05] MEDS: isosorbide mononitrate ER 60 mg Tablet PO (09:03)
[2024-02-05] MEDS: dilTIAZem ER (24HR) 180 mg Capsule PO (09:03)
[2024-02-05] MEDS: doxycycline 100 mg Tablet PO ×2 (09:03→18:29)
[2024-02-05] MEDS: potassium chloride ER 20 mEq Tablet PO (09:03)
[2024-02-05] MEDS: gabapentin 100 mg Capsule 200 MG PO ×3 (09:04→20:36)
[2024-02-05] MEDS: lisinopril 20 mg Tablet 40 MG PO (09:04)
[2024-02-05] MEDS: hyDRALAzine 50 mg Tablet PO ×3 (09:04→20:36)
[2024-02-05] MEDS: multivitamin therapeutic Tablet 1 TAB PO (09:04)
[2024-02-05] MEDS: docusate sodium 100 mg Capsule PO ×2 (09:04→18:29)
[2024-02-05] MEDS: insulin glargine 100 units/1 mL 15 UNIT SUBCUT ×2 (09:05→20:37)
[2024-02-05] MEDS: atorvastatin 40 mg Tablet 20 MG PO (09:05)
[2024-02-05] MEDS: nicotine 21 mg Patch 1 PATCH TRANSDERMA (09:09)
[2024-02-05] MEDS: sotalol 80 mg Tablet 120 MG PO ×2 (09:26→20:45)
--- NOTE | 2024-02-05 09:31 | PC.CHAP ---
Pastoral Care Encounter/Spiritual Assessment Type of Contact [] Declined trimming machine operator visit [] Patient/Family/Request visit [] Outpatient visit [] Follow-up visit [] Physician referral [] Code/Alert [] Routine visit [] Staff referral [] Actively dying [] Patient sleeping [] Family support [] [] Out of room [] Palliative care [] [] Receiving care in room [] Pre-surgical visit [] Trauma [] Long length of stay [] ICU visit [] Other: Relational/Emotional Strength [] Patient feels connected with others/family/visitors/staff [] Distress [] Loneliness/isolation [] Abandonment Spirituality of Patient [] Person of Jewell [] Attends Shinto of their Jewell [] Believes in Prayer [] Reads Bible or Yarsanism materials [] There are Spiritual issues to be addressed Basin Cleaner 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 [x] Prayer [] Active listening [] Non-anxious presence [] Spiritual/emotional support [] Crisis/trauma care [] Spiritual counseling [] Bereavement support [] Provided bereavement packet [] Provided Bible/devotional materials [] Provided toy/stuffed animal, coloring book to patient or family member [] Provided Communion [] Anointing/[place] [] Salvation [x] Completed spiritual assessment [] Other: Impact on Illness or Injury [] Angry [] Fearful [] Anxious [] Often cries [] Exhaustion [] Unable to work [] Unable to attend restorationism [] Unable to walk/stand [] Unable to read [] Unable to drive [] Unable to eat/drink [] Unable to sleep [] Unable to be with family [] Patient intubated [] Other: Summary Time spent with patient 3 min
[2024-02-05] MEDS: ipratropium-albuterol 3 mL Neb INHALATION (10:15)
[2024-02-05 12:10] LABS: Glucose Point of Care 259 mg/dL (70-110)
[2024-02-05] MEDS: cefTRIAXone 1,000 MG in sodium chloride 0.9% (plus) 50 ML 100 MG IV (12:48)
[2024-02-05] MEDS: insulin lispro 100 unit/1 mL SUBCUT ×3 (12:49→21:32)
--- NOTE | 2024-02-05 13:18 | P.PN_ITS ---
Subjective 2 Subjective: Febrile to Tmax 100.6 Fahrenheit last night. Blood cultures drawn today. Denies any new complaints. Has some cough, unable to expectorate significantly. Medications: Reviewed: Yes Vitals/I&O/Wt Last Vital Signs Temp 98.1 F 02/05/24 11:47 Pulse 85 02/05/24 11:47 Resp 24 H 02/05/24 11:47 BP 109/51 02/05/24 11:47 Pulse Ox 96 02/05/24 11:47 O2 Del Method Nasal Cannula 02/05/24 11:47 O2 Flow Rate 2.5 02/05/24 10:00 02/04/24 02/05/24 02/05/24 22:59 06:59 14:59 Intake Total 320 / 320 250 / 570 360 / 360 Output Total 100 / 100 300 / 400 260 / 260 Balance 220 / 220 -50 / 170 100 / 100 Weight last 48 hrs Weight 80.286 kg Weight 80.286 kg Weight 79.52 kg Weight 78.018 kg Physical Exam 2 Narrative: General: No acute distress, AO x3 HEENT: PERRLA, pupils bilaterally equal and reactive, pallors not present Chest: Normal vesicular breath sounds, no added sounds, equal good air entry bilaterally CVS: S1-S2 regular, no murmurs, no tachycardia, no gallops, no rubs Abdomen: Soft, nontender, no organomegaly, bowel sounds present Neuro: No focal deficits, no facial deformity, AO x3, power 5/5 in all limbs Extremities: Bilateral lower extremity pitting edema. Data 02/04/24 11:45 02/04/24 12:14 Micro: Microbiology 02/05/24 12:56 Blood Culture - Preliminary Blood SPECIMEN COLLECTED 02/05/24 13:01 Blood Culture - Preliminary Blood SPECIMEN COLLECTED A&P Assessment and plan (1) Acute on chronic heart failure with preserved ejection fraction: Primary diagnosis as evidenced by increasing lower extremity edema, increasing shortness of breath with nonproductive cough, posttussive emesis with white frothy fluid, pleural effusion on the right side, elevated BNP and hypoxemia with a slight bump in BUN and creatinine. He has a known history of CHF with preserved ejection fraction. Last echocardiogram in October of this year showed ejection fraction 55 to 60%. Recently had a fairly routine for him surgical procedure with cystoscopy and transurethral resection of a bladder tumor about 10 days ago. Since then he has had progressive decline. No report of pleuritic type chest pain or increasing chest pain but his activity level has decreased. His made him seek medical care yesterday at which time diuretic was increased. Today he was not any better prompting the visit to the emergency room under the guidance of his PCP. If it had been left to him he would not have presented to the hospital at this time because he does not like being here. He has had some low-grade fever the past couple of days which brings up the possibility of an infectious process contributing. He is a longtime smoker. Does not formally carry a diagnosis of COPD but COPD exacerbation could also be contributing as could have pulmonary infection. He is immunocompromised by chronic Enbrel and methotrexate therapy for his rheumatoid arthritis. Currently requiring oxygen therapy which he has never required before. Pleural effusion related to rheumatoid arthritis or a malignancy is also within the differential and should be considered if pleural effusion and overall symptoms do not improve with planned diuresis. Vascular etiology of presentation including acute cardiac ischemia/angina or thrombotic/embolic event also within differential but seem less likely based on presenting symptoms that are primarily respiratory in nature without other associated complaints. He is chronically on Xarelto. Had been held for his procedure but resumed thereafter. He did have a cardiac catheterization in September of this year that showed patent RCA stents with diffuse disease and a small caliber left circumflex for which medical management was recommended. (2) Accelerated hypertension: Significant hypertension currently which I suspect is multifactorial from volume overload/CHF along with him not being happy with needing to be hospitalized presently. He is chronically on Lasix, hydralazine, isosorbide, lisinopril, sotalol. He took all of his usual morning medications today and has additionally received an extra 80 mg of Lasix. The hypertension appears secondary rather than primary to me currently. (3) Low grade fever: Low-grade temperature, 100.5-100.9 in the days preceding admission. No clear acute infection but with immunocompromise brought about by Enbrel and methotrexate therapy chronically for his rheumatoid arthritis at high risk of developing significant infection. Possible sources of infection include a coinciding upper respiratory infection or bronchitis, urinary tract from recent procedure and even skin from new wound noted to right lower extremity. Has an associated increase in white blood count though that could be reactive from distress related to hypoxemia and such related to #1. Lactic acid is normal. Not meeting criteria for sepsis at this time but should be closely monitored given comorbid risks. (4) Rheumatoid arthritis: Chronically on Enbrel and methotrexate. Has been on steroids in the past. None recently. Also on chronic folate, iron and multivitamin. (5) Coronary artery disease: With history of previous right coronary artery stents. Most recent arteriogram in October of this year demonstrated patent stents. He had a narrow, small caliber left circumflex artery for medical management identified. Echocardiogram at that time showed no change compared to prior studies from 2020 with ejection fraction at 55 to 60%. He is chronically on diuretic therapy with potassium replacement, LISA inhibitor, scheduled and as needed nitrates, Plavix. Follows with Dr. Mays here. (6) Diabetes mellitus: Type II, insulin requiring, with diabetic peripheral neuropathy, peripheral arterial disease and likely chronic kidney disease stage II if not stage IIIa. Hemoglobin A1c is managed by primary care provider. In addition to insulin therapy, patient is on metformin and gabapentin. Qualifiers: Diabetes mellitus type: type 2 Diabetes mellitus salvage determiner insulin use: with salvage determiner use Diabetes mellitus complication status: with hyperglycemia Qualified Code(s): E11.65 - Type 2 diabetes mellitus with hyperglycemia; Z79.4 - ocean transportation intermediary (current) use of insulin (7) Peripheral arterial disease: Status post prior right AKA. Had femoropopliteal bypass right lower extremity in September of this year. Has a recently noted sore to the posterior right lower extremity near the Achilles tendon with some oozing of clear fluid and scab formation without any surrounding erythema at presentation. Has chronic stasis changes to the right lower extremity. (8) Hypertriglyceridemia: Chronically on pravastatin therapy. Lipid panel followed by primary care provider. (9) Anticoagulation adequate with anticoagulant therapy: Chronically on Xarelto due to history of atrial fibrillation along with known history of peripheral arterial disease. (10) Atrial fibrillation: History of atrial fibrillation in the past, chemical cardioversion with sotalol which she remains on. He is on anticoagulation. Also on chronic diltiazem. Current rhythm is sinus. (11) Bladder cancer: Low-grade papillary urothelial carcinoma. Had been followed by Dr. Corral until his group home. Currently following with Dr. Du Moreno at [facility] in [place]. Has regular evaluations and cystoscopies with transurethral resection of the bladder tumors. Most recent was January 27, 2024. Has had a normal recovery pattern from a bladder standpoint since that procedure without ongoing acute urinary symptoms described. Qualifiers: Bladder location: overlapping sites Qualified Code(s): C67.8 - Malignant neoplasm of overlapping sites of bladder (12) BPH loc w urin obs/LUTS: Chronically on Flomax (13) Depression: Chronically on duloxetine (14) Nicotine dependence, cigarettes, with other nicotine-induced disorders: Chronically smokes a pack a day. Plan Chronically on cetirizine for allergy symptoms Chronically on pantoprazole and as needed medications for constipation Inpatient admission Continue IV diuresis Strict I's and O's and daily weights with fluid restriction Monitor renal function closely, repeat labs ordered for in the morning Continue home nitrates (Imdur) with plan for increase in dose tomorrow from 30 to 60 daily Have ordered some additional hydralazine and topical nitroglycerin presently; if blood pressures do not improve will consider nitroglycerin drip Continuing home lisinopril, diltiazem, sotalol at usual doses for now Will recheck CXR after diuresis Check urinalysis Empiric doxycycline for coverage of possible pulmonary infection in this immunocompromised patient Breathing treatments as needed Received last dose of Enbrel on January 31 and took last dose of methotrexate on February 02 Continue as needed Tylenol Continue serial cardiac enzymes and EKGs monitoring for signs of ischemia Telemetry monitoring Currently holding home metformin, continuing long-acting insulin at a slightly decreased dose along with sliding scale insulin as needed Cardiac consistent carbohydrate diet Continue home Plavix along with statin therapy Continue home Xarelto Continue home Flomax Continue home citalopram Nicotine patch has been ordered Continue home pantoprazole Continue home as needed laxatives along with scheduled docusate VTE prophylaxis: Chronically on Xarelto which is being continued GI Prophylaxis: Chronically on PPI Antibiotics: Doxycycline started empirically secondary to immunocompromise and low-grade fevers along with increase in white count Pending studies: Urinalysis and serial cardiac enzyme, repeat CXR for morning, am labs for 02/04 Telemetry: Ordered secondary to presentation and known history of atrial fibrillation Meléndez: not currently indicated though monitoring urine output closely Line(s): peripheral IVs Disposition plan: Home with outpatient follow up anticipated at this time. Appointment scheduled at [facility] on February 18 at [address] Kezia that can be used for hospital follow-up as well in addition to follow-up with PCP. He may require adjustment in usual home medication dosages such as for diuretics and nitrates along with outpatient labs for renal function monitoring post discharge. Recommend keeping a blood pressure log at home as well. Code Status: Full Code Supportive care otherwise Findings, concerns and plans were discussed with patient and his and they both were given an opportunity to ask questions Plan for today February 05, 2024. Chart reviewed. Patient febrile overnight to 100.6 Fahrenheit. Potential source of infection may be right lower lobe consolidation with effusion. Possibly also may have UTI, however this appears to be less likely given negative leukocyte esterase, negative nitrate, 5-10 WBCs. Check blood culture. Check urine Legionella and bacterial antigens. Check tick panel. Broaden antibiotic coverage to include beta-lactam's. Started ceftriaxone 1 g IV every 24 hours. Continue atypical coverage with doxycycline 100 mg twice daily. Currently saturating 96% on room air. Plan to repeat chest x-ray in a.m. to assess any changes in the effusion with diuresis. Continue Lasix 60 mg IV every 12 hours with close monitoring of renal function and urine output. He is not yet net negative. Attestations 2 Medical Necessity Statement*: continued admission for IV diuresis, IV antibiotics, ongoing evaluation for fever, repeat chest x-ray with a.m. labs to assess for response to diuresis. Coding Level of Care Code Acute Code for Chg Fwd High MDM includes number and complexity of problems actively addressed during encounter, amount and/or complexity of data reviewed/ordered and described risk of complication, morbidity or mortality of management as documented Diagnoses Acute on chronic heart failure with preserved ejection fraction I50.33 Accelerated hypertension I10 Low grade fever R50.9 Rheumatoid arthritis M06.9 Coronary artery disease I25.10 Type 2 diabetes mellitus with hyperglycemia, with long-term current use of insulin E11.65; Z79.4 Diabetes mellitus type: type 2 Diabetes mellitus [facility] insulin use: with salvage determiner use Diabetes mellitus complication status: with hyperglycemia Peripheral arterial disease I73.9 Hypertriglyceridemia E78.1 Anticoagulation adequate with anticoagulant therapy Z79.01 Atrial fibrillation I48.91 Malignant neoplasm of overlapping sites of bladder C67.8 Bladder location: overlapping sites BPH loc w urin obs/LUTS N40.1 Depression F32.A Nicotine dependence, cigarettes, with other nicotine-induced disorders F17.218
[2024-02-05 17:08] LABS: Glucose Point of Care 228 mg/dL (70-110)
[2024-02-05] MEDS: tamsulosin 0.4 mg Capsule 0.400000000000000022 MG PO (18:30)
[2024-02-05] MEDS: cetirizine 10 mg Tablet PO (20:36)
[2024-02-05] MEDS: rivaroxaban 10 mg Tablet 20 MG PO (20:36)
[2024-02-05] MEDS: pantoprazole DR 40 mg Tablet PO (20:36)
[2024-02-05] MEDS: acetaminophen 500 mg Tablet PO (20:44)
[2024-02-05 21:24] LABS: Glucose Point of Care 234 mg/dL (70-110)
[2024-02-06 00:51] VITALS: BP 122/49; PULSE 75; O2SAT 98
[2024-02-06] MEDS: FUROsemide 10 mg/mL SDV 10mL 60 MG IVP (02:51)
[2024-02-06 04:18] VITALS: BP 143/56; PULSE 96; O2SAT 92
[2024-02-06 05:14] LABS: Basophils # 0.1 10^3/uL (0.0-0.1); Basophils % 0.7 %; Eosinophils # 0.6 10^3/uL (0.0-0.8); Lymphocytes # 1.5 10^3/uL (0.8-4.8); Lymphocytes % 15.9 %; Mean Corpuscular HGB Conc 32.3 g/dL (30-55); Mean Corpuscular Hemoglobin 32.4 pg (27-33); Mean Corpuscular Volume 100.3 fl (82-101); Mean Platelet Volume 9.7 fL (7.4-10.4); Monocytes # 0.3 10^3/uL (0.2-0.9); Neutrophils # 6.83 10^3/uL (1.8-7.7); Neutrophils % 74.1 %; Nucleated Red Blood Cells % 0 %; Platelet Count 376 10^3/cmm (157-399); Red Blood Count 3.09 10^6/uL (3.85-5.65); Red Cell Distribution Width 16.5 % (12.1-15.1); White Blood Count 9.21 10^3/uL (3.29-11.43)
[2024-02-06 05:17] VITALS: BMI 26.6
[2024-02-06] MEDS: clopidogrel 75 mg Tablet PO (05:39)
[2024-02-06] MEDS: folic acid 1 mg Tablet PO (05:39)
[2024-02-06] MEDS: duloxetine 20 mg Capsule PO (05:39)
[2024-02-06] MEDS: ferrous sulfate EC 325 mg Tablet PO (05:39)
[2024-02-06 05:41] LABS: Alanine Aminotransferase 10 U/L (0-41); Albumin Level 2.7 g/dL (3.5-5.2); Alkaline Phosphatase 77 U/L (40-130); Anion Gap 15.4 (5-19); Aspartate Amino Transferase 13 U/L (0-40); Blood Urea Nitrogen 34 mg/dL (8-23); Calcium 8.3 mg/dL (8.5-10.5); Carbon Dioxide 23 mmol/L (22-29); Chloride 109 mmol/L (98-107); Creatinine Clr Calc Pharmacy 45.5443; Globulin 3.6 g/dL (1.3-4.6); Glucose 110 mg/dL (65-115); Osmolality Calculated 306 mOsm/kg (285-295); Potassium 3.4 mmol/L (3.5-5.1); Sodium 144 mmol/L (136-145); Total Bilirubin 0.4 mg/dL (0.15-1.2); Total Protein 6.3 g/dL (6.6-8.7)
[2024-02-06 05:45] LABS: Slide Review Slide Review Perform
[2024-02-06 05:53] LABS: Glucose Point of Care 103 mg/dL (70-110)
[2024-02-06 05:55] VITALS: PULSE 98
--- NOTE | 2024-02-06 06:00 | XRR_ITS ---
PROCEDURE INFORMATION: Exam: XR Chest Exam date and time: 02/06/2024 4:57 AM Age: 78 years old Clinical indication: Other: Pleural effusion; Additional info: Follow up pleural effusion TECHNIQUE: Imaging protocol: Radiologic exam of the chest. Views: 1 view. COMPARISON: CT chest con [id number] 02/04/2024 1:09 PM FINDINGS: Lungs: Bibasilar infiltrates or atelectasis are stable. Pleural spaces: The right pleural effusion is not distinctly seen and has probably improved but may be layering posteriorly. Heart/Mediastinum: Unremarkable. No cardiomegaly. Bones/joints: Unremarkable. XR/XR chest 1V portable [id number] IMPRESSION: Mild bibasilar opacities.
[2024-02-06 07:41] VITALS: BP 135/59; PULSE 100; RESP 23; TEMP 36.5; O2SAT 97
[2024-02-06] MEDS: dilTIAZem ER (24HR) 180 mg Capsule PO (08:29)
[2024-02-06] MEDS: multivitamin therapeutic Tablet 1 TAB PO (08:30)
[2024-02-06] MEDS: gabapentin 100 mg Capsule 200 MG PO ×2 (08:30→16:17)
[2024-02-06] MEDS: isosorbide mononitrate ER 60 mg Tablet PO (08:30)
[2024-02-06] MEDS: docusate sodium 100 mg Capsule PO (08:30)
[2024-02-06] MEDS: doxycycline 100 mg Tablet PO (08:30)
[2024-02-06] MEDS: atorvastatin 40 mg Tablet 20 MG PO (08:30)
[2024-02-06] MEDS: potassium chloride ER 20 mEq Tablet PO (08:30)
[2024-02-06] MEDS: hyDRALAzine 50 mg Tablet PO ×2 (08:30→16:17)
[2024-02-06] MEDS: lisinopril 20 mg Tablet 40 MG PO (08:30)
[2024-02-06] MEDS: sotalol 80 mg Tablet 120 MG PO (08:31)
[2024-02-06] MEDS: nicotine 21 mg Patch 1 PATCH TRANSDERMA (08:31)
[2024-02-06] MEDS: insulin glargine 100 units/1 mL 15 UNIT SUBCUT (10:04)
[2024-02-06 11:40] VITALS: BP 118/53; PULSE 68; RESP 22; TEMP 36.6; O2SAT 95
[2024-02-06 11:54] LABS: Glucose Point of Care 229 mg/dL (70-110)
[2024-02-06] MEDS: cefTRIAXone 1,000 MG in sodium chloride 0.9% (plus) 50 ML 100 MG IV (12:10)
[2024-02-06] MEDS: insulin lispro 100 unit/1 mL SUBCUT (12:11)
[2024-02-06 12:44] LABS: Lyme AB Screen <0.90 index
--- NOTE | 2024-02-06 16:16 | PM.DCS ---
Discharge Providers Date of Admission: 02/04/24 16:40 Date of Discharge: February 06, 2024 Attending Provider at Admission: Maxine Donahue MD Attending Provider at Discharge: Danica Carson MD Primary Care Provider: Bree Perkins MD Diagnoses at Discharge Discharge Diagnosis (1) Acute on chronic heart failure with preserved ejection fraction: Status: Acute (2) Accelerated hypertension: Status: Acute (3) Low grade fever: Status: Acute (4) Rheumatoid arthritis: Status: Chronic (5) Coronary artery disease: Status: Chronic (6) Diabetes mellitus: Status: Chronic Qualifiers: Diabetes mellitus complication status: with hyperglycemia Diabetes mellitus senior care insulin use: with manager terminal use Diabetes mellitus type: type 2 Qualified Code(s): E11.65 - Type 2 diabetes mellitus with hyperglycemia; Z79.4 - senior living (current) use of insulin (7) Peripheral arterial disease: Status: Chronic (8) Hypertriglyceridemia: Status: Chronic (9) Anticoagulation adequate with anticoagulant therapy: Status: Chronic Permanent problem details: xarelto (10) Atrial fibrillation: Status: Chronic Permanent problem details: history of chemical cardioversion with sotalol (11) Bladder cancer: Status: Chronic Qualifiers: Bladder location: overlapping sites Qualified Code(s): C67.8 - Malignant neoplasm of overlapping sites of bladder Permanent problem details: Low-grade noninvasive papillary urothelial carcinoma cystoscopy done in December 2020, status post intravesical mitomycin after each cystoscopy and status post induction therapy with weekly BCG intravesically from August 18, 2021 through September 22, 2021 Follow-up cystoscopy done on January 16, 2022 showed persistent/recurrence low-grade urothelial carcinoma status post fulguration followed by postop intravesical mitomycin. (12) BPH loc w urin obs/LUTS: Status: Chronic Permanent problem details: Started on TAMSULOSIN March 2021 for chronic BPH symptoms (13) Depression: Status: Chronic (14) Nicotine dependence, cigarettes, with other nicotine-induced disorders: Status: Chronic Reason for Visit Reason for Visit: sob Discharge Data Studies Completed and Pending Completed Studies During Hospitalization Category Date Time Status CT chest wo con [id number] Stat Cat Scan 02/04/24 12:35 Completed CXRP [XR chest 1V portable [id number]] AM LABS Exams 02/06/24 06:00 Completed XR chest 1V portable [id number] Stat Exams 02/04/24 11:47 Completed Pending at discharge Category Date Time Status Blood Culture Stat Lab 02/05/24 12:56 Results Renal Function Panel AM LABS Lab 02/07/24 04:00 Ordered Sputum Culture and Gram Stain Routine Lab 02/05/24 13:53 Uncollected Tick Panel Routine Lab 02/05/24 12:56 Results Radiology Impressions Chest CT 02/04/24 12:35 IMPRESSION: 1. New small to moderate size layering RIGHT pleural effusion. Tiny LEFT pleural effusion. 2. Interstitial thickening. Probably related to pulmonary edema fluid overload, new since 05/08/2022. 3. Mildly enlarged and prominent lymph nodes. Probably reactive adenopathy. 4. Frothy secretions in the mid to distal esophagus. Concern for reflux disease. 5. Atherosclerosis aorta. 6. Cholelithiasis. 7. LEFT renal cysts. Chest X-Ray 02/06/24 06:00 IMPRESSION: Mild bibasilar opacities. Laboratory Results WBC 9.21 10^3/uL (3.29-11.43) 02/06/24 04:55 RBC 3.09 10^6/uL (3.85-5.65) L 02/06/24 04:55 Hgb 10.00 g/dL (11.27-16.99) L 02/06/24 04:55 Hct 31.0 % (37-53) L 02/06/24 04:55 MCV 100.3 fl (82-101) 02/06/24 04:55 MCH 32.4 pg (27-33) 02/06/24 04:55 MCHC 32.3 g/dL (30-55) 02/06/24 04:55 RDW 16.5 % (12.1-15.1) H 02/06/24 04:55 Plt Count 376 10^3/cmm (157-399) 02/06/24 04:55 MPV 9.7 fL (7.4-10.4) 02/06/24 04:55 Neut % (Auto) 74.1 % 02/06/24 04:55 Lymph % (Auto) 15.9 % 02/06/24 04:55 [place] % (Auto) 3.0 % 02/06/24 04:55 Eos % (Auto) 6.0 % 02/06/24 04:55 Baso % (Auto) 0.7 % 02/06/24 04:55 Neut # (Auto) 6.83 10^3/uL (1.8-7.7) 02/06/24 04:55 Lymph # (Auto) 1.5 10^3/uL (0.8-4.8) 02/06/24 04:55 [place] # (Auto) 0.3 10^3/uL (0.2-0.9) 02/06/24 04:55 Eos # (Auto) 0.6 10^3/uL (0.0-0.8) 02/06/24 04:55 Baso # (Auto) 0.1 10^3/uL (0.0-0.1) 02/06/24 04:55 Nucleated RBC % (auto) 0 % 02/06/24 04:55 Nucleated RBCs # 0.0 /100WBC 02/06/24 04:55 Specimen Type Arterial 02/04/24 12:06 Sample Site Radial, right 02/04/24 12:06 ABG pH 7.44 (7.35-7.45) 02/04/24 12:06 ABG pCO2 33.4 mmHg (35-45) L 02/04/24 12:06 ABG pO2 58.5 mmHg (80.0-100.0) L 02/04/24 12:06 ABG HCO3 22.5 mmol/L (22-26) 02/04/24 12:06 ABG O2 Saturation 92.2 02/04/24 12:06 ABG Base Excess -1.2 mmol/L (-2.0-2.0) 02/04/24 12:06 Emigdio Test Pos 02/04/24 12:06 A-a O2 Gradient 6.3 mmHg (5-10) 02/04/24 12:06 Hematocrit 33.9 % (42-52) L 02/04/24 12:06 Hgb O2 Saturation 89.1 % (95-100) L 02/04/24 12:06 Carboxyhemoglobin 2.9 %THgb (0.4-20.1) 02/04/24 12:06 Methemoglobin 0.4 % (0.4-1.5) 02/04/24 12:06 Total Hemoglobin 11.1 g/dL (14-18) L 02/04/24 12:06 Sodium 141.0 mmol/L (131-143) 02/04/24 12:06 Potassium 3.4 mmol/L (3.5-5.0) L 02/04/24 12:06 Glucose 161.0 mg/dL (70-115) H 02/04/24 12:06 Ionized Calcium 1.2 mmol/L (1.1-1.4) 02/04/24 12:06 O2 Delivery Device Nc 02/04/24 12:06 O2 Liters/Min 2.0 % 02/04/24 12:06 Premium Card Cancellation Clerk ID [place] 02/04/24 12:06 Sodium 144 mmol/L (136-145) 02/06/24 04:55 Potassium 3.4 mmol/L (3.5-5.1) L 02/06/24 04:55 Chloride 109 mmol/L (98-107) H 02/06/24 04:55 Carbon Dioxide 23 mmol/L (22-29) 02/06/24 04:55 Anion Gap 15.4 (5-19) 02/06/24 04:55 BUN 34 mg/dL (8-23) H 02/06/24 04:55 Creatinine 1.4 mg/dL (0.7-1.2) H 02/06/24 04:55 GFR Calculation Not Reportable 02/06/24 04:55 Glucose 110 mg/dL (65-115) 02/06/24 04:55 POC Glucose 229 mg/dL (70-110) H 02/06/24 11:37 Calculated Osmolality 306 mOsm/kg (285-295) H 02/06/24 04:55 Lactic Acid 1.7 mmol/L (0.5-2.2) 02/04/24 11:45 Calcium 8.3 mg/dL (8.5-10.5) L 02/06/24 04:55 Total Bilirubin 0.4 mg/dL (0.15-1.2) 02/06/24 04:55 AST 13 U/L (0-40) 02/06/24 04:55 ALT 10 U/L (0-41) 02/06/24 04:55 Alkaline Phosphatase 77 U/L (40-130) 02/06/24 04:55 Troponin T Baseline 74 ng/L (0-15) H 02/04/24 11:45 Troponin T 120 Minute 66.38 ng/L (0-15) H 02/04/24 14:06 Delta Troponin T -7.62 ABS# (0-10) L 02/04/24 14:06 Troponin T Hi Sens 6Hr 63.88 ng/L (0-15) H 02/04/24 18:05 Troponin T Hi Sens 6Hr Delta -10.12 ng/L (0-12) L 02/04/24 18:05 NT-Pro-B Natriuret Pep 8321 pg/mL (0-450) H 02/04/24 12:14 Total Protein 6.3 g/dL (6.6-8.7) L 02/06/24 04:55 Albumin 2.7 g/dL (3.5-5.2) L 02/06/24 04:55 Globulin 3.6 g/dL (1.3-4.6) 02/06/24 04:55 Urine Color Yellow (Yellow) 02/04/24 16:26 Urine Appearance Clear (CLEAR) 02/04/24 16:26 Urine pH 6 (5-7) 02/04/24 16:26 Ur Specific [place] 1.010 (1.005-1.030) 02/04/24 16:26 Urine Protein 2+ (Negative) H 02/04/24 16:26 Urine Glucose (UA) Norm (Normal) 02/04/24 16:26 Urine Ketones Negative (Negative) 02/04/24 16:26 Urine Blood Neg (Negative) 02/04/24 16:26 Urine Nitrate Negative (Negative) 02/04/24 16:26 Urine Bilirubin Neg (Negative) 02/04/24 16:26 Urine Urobilinogen Norm mg/dL (Negative) 02/04/24 16:26 Ur Leukocyte Esterase Negative (Negative) 02/04/24 16:26 Urine RBC 0-4 /hpf (0-2) H 02/04/24 16:26 Urine WBC 5-10 /hpf (0-5) H 02/04/24 16:26 Ur Squamous Epith Cells 0-4 /hpf (0-5) H 02/04/24 16:26 Amorphous Sediment Not Reportable 02/04/24 16:26 Urine Bacteria None /hpf (NONE) 02/04/24 16:26 Urine Mucus None /hpf 02/04/24 16:26 Ur Oval Fat Bodies 1+ /hpf 02/04/24 16:26 Lyme Ab (Western Blot) <0.90 index 02/05/24 12:56 Vitals Last Vital Signs Temp 97.9 F 02/06/24 11:40 Pulse 68 02/06/24 11:40 Resp 22 H 02/06/24 11:40 BP 118/53 02/06/24 11:40 Pulse Ox 95 02/06/24 11:40 O2 Del Method Room Air 02/06/24 11:40 O2 Flow Rate 2.5 02/05/24 10:00 Discharge Plan Discharge Patient Disposition: Home Condition: Stable Prescriptions: New doxycycline monohydrate 100 mg Tablet 100 mg PO BID 5 Days Qty: 10 0RF isosorbide mononitrate 60 mg Tablet Extended Release 24 Hr 60 mg PO DAILY Qty: 30 0RF cefdinir 300 mg capsule 300 mg PO BID 5 Days Qty: 10 0RF Continued duloxetine [Cymbalta] 20 mg capsule,delayed release(DR/EC) 20 mg PO QAM ferrous sulfate 325 mg (65 mg iron) tablet 325 mg PO QAM pantoprazole 40 mg tablet,delayed release (DR/EC) 40 mg PO BEDTIME tamsulosin 0.4 mg capsule 0.4 mg PO QPM Qty: 90 3RF folic acid 1 mg tablet 1 mg PO QAM methotrexate sodium 2.5 mg tablet 20 mg PO Q7D Rx Instructions: 8 TABS WEEKLY ON SATURDAY sucralfate 1 gram tablet 1 g PO QID PRN (Reason: UNKNOWN) gabapentin 100 mg capsule 200 mg PO TID Enbrel SureClick 50 mg/mL (1 mL) pen injector 50 mg SUBCUT Q7D Rx Instructions: ON SAT lisinopril 40 mg tablet 40 mg PO QAM Lantus Solostar U-100 Insulin 100 unit/mL (3 mL) insulin pen 20 unit SUBCUT BID Dose Instruction: inject 40 units SUBCUTANEOUSLY IN THE EVENING metformin 500 mg tablet 500 mg PO BID Hold Instructions: Resume on 10/24/23. Xarelto 20 mg tablet 20 mg PO BEDTIME Qty: 90 3RF Hold Instructions: Resume on 09/15/22. sotalol 80 mg tablet 120 mg PO BID Qty: 180 3RF pravastatin 40 mg tablet 40 mg PO DAILY Qty: 90 3RF hydralazine 50 mg tablet 50 mg PO BID Qty: 180 3RF clopidogrel [Plavix] 75 mg tablet 75 mg PO QAM Hold Instructions: Resume on 03/16/21. diltiazem HCl [Cartia XT] 180 mg capsule,extended release 24hr 180 mg PO DAILY Qty: 90 1RF acetaminophen 500 mg Tablet 500 mg PO Q6H PRN (Reason: Pain) nitroglycerin [Nitrostat] 0.4 mg Tablet, Sublingual 0.4 mg SUBLINGUAL Q5M PRN (Reason: Chest Pain) Rx Instructions: do not exceed 3 doses per episode potassium chloride 10 mEq capsule, extended release 20 meq PO QAM cetirizine 10 mg tablet 10 mg PO BEDTIME insulin aspart U-100 [Novolog FlexPen U-100 Insulin] 100 unit/mL (3 mL) insulin pen See Rx Instructions .ROUTE .COMPLEX Rx Instructions: sliding scale tid furosemide 40 mg tablet 40 mg PO BID Senokot 8.6 mg Tablet 17.2 mg PO BEDTIME PRN (Reason: Constipation) Centrum Men 8 mg iron- 200 mcg-600 mcg Tablet 1 tab PO QAM (DME) pen needle, diabetic 32 gauge x 5/32 needle See Rx Instructions .ROUTE Rx Instructions: test 4 times daily albuterol sulfate 90 mcg/actuation HFA aerosol inhaler 1 puff INHALATION Q4H PRN (Reason: Wheezing) Discontinued isosorbide mononitrate 60 mg tablet extended release 24 hr 30 mg PO DAILY Discharge Orders: Discharge Order (Routine); Ordered 02/06/24 Ordered By: Danica Carson Referrals: Bree Perkins MD [Primary Care Provider] - 1 week Ginna Barnes FNP [Nurse Practitioner] - 7-10 days Discharge Diet: Diabetic Discharge Activity: Resume usual activity Patient Instructions: Opioid Safety Discharge Attestations Time Spent in Discharge Care*: greater than 30 min Status at Discharge: Cognitive status at discharge: cognitively intact, Behavioral status at discharge: cooperative, Quality Metrics Clinical Quality Measures [ No reported AMI, CVA or VTE this stay] Coding Level of Care Code Acute Code for Chg Fwd Diagnoses Acute on chronic heart failure with preserved ejection fraction I50.33 Accelerated hypertension I10 Low grade fever R50.9 Rheumatoid arthritis M06.9 Coronary artery disease I25.10 Type 2 diabetes mellitus with hyperglycemia, with long-term current use of insulin E11.65; Z79.4 Diabetes mellitus complication status: with hyperglycemia Diabetes mellitus manager terminal insulin use: with manager terminal use Diabetes mellitus type: type 2 Peripheral arterial disease I73.9 Hypertriglyceridemia E78.1 Anticoagulation adequate with anticoagulant therapy Z79.01 Atrial fibrillation I48.91 Malignant neoplasm of overlapping sites of bladder C67.8 Bladder location: overlapping sites BPH loc w urin obs/LUTS N40.1 Depression F32.A Nicotine dependence, cigarettes, with other nicotine-induced disorders F17.218
--- NOTE | 2024-02-06 16:20 | PC.NURSE ---
Patient refused his lasix at this time due to being discharged. Patient stated, I will take it when I get home.
[2024-02-06 17:30] VITALS: BP 118/53; PULSE 68; RESP 22; TEMP 36.6; O2SAT 95
--- NOTE | 2024-02-06 18:37 | P.DS_ITS ---
Discharge Providers Date of Admission: 02/04/24 16:40 Date of Discharge: February 06, 2024 Attending Provider at Admission: Maxine Donahue MD Attending Provider at Discharge: Danica Carson MD Primary Care Provider: Bree Perkins MD Diagnoses at Discharge Discharge Diagnosis (1) Acute on chronic heart failure with preserved ejection fraction: Status: Acute (2) Accelerated hypertension: Status: Acute (3) Low grade fever: Status: Acute (4) Rheumatoid arthritis: Status: Chronic (5) Coronary artery disease: Status: Chronic (6) Diabetes mellitus: Status: Chronic Qualifiers: Diabetes mellitus complication status: with hyperglycemia Diabetes mellitus fpc insulin use: with watcher [employer] goods use Diabetes mellitus type: type 2 Qualified Code(s): E11.65 - Type 2 diabetes mellitus with hyperglycemia; Z79.4 - intermediate (current) use of insulin (7) Peripheral arterial disease: Status: Chronic (8) Hypertriglyceridemia: Status: Chronic (9) Anticoagulation adequate with anticoagulant therapy: Status: Chronic Permanent problem details: xarelto (10) Atrial fibrillation: Status: Chronic Permanent problem details: history of chemical cardioversion with sotalol (11) Bladder cancer: Status: Chronic Qualifiers: Bladder location: overlapping sites Qualified Code(s): C67.8 - Malignant neoplasm of overlapping sites of bladder Permanent problem details: Low-grade noninvasive papillary urothelial carcinoma cystoscopy done in December 2020, status post intravesical mitomycin after each cystoscopy and status post induction therapy with weekly BCG intravesically from August 18, 2021 through September 22, 2021 Follow-up cystoscopy done on January 16, 2022 showed persistent/recurrence low-grade urothelial carcinoma status post fulguration followed by postop intravesical mitomycin. (12) BPH loc w urin obs/LUTS: Status: Chronic Permanent problem details: Started on TAMSULOSIN March 2021 for chronic BPH symptoms (13) Depression: Status: Chronic (14) Nicotine dependence, cigarettes, with other nicotine-induced disorders: Status: Chronic Reason for Visit Reason for Visit: sob Hospital Course Hospital Course He was admitted for acute on chronic heart failure with preserved ejection fraction. He has responded well to IV diuresis and is saturating well on room air. He is currently net negative. He was not weighing himself daily at home. He was advised to do so. His peripheral edema has improved significantly. He had accelerated hypertension which was thought to be due to volume overload. His blood pressure is stable now. His Imdur was increased to 60 mg daily. He also had right lower lobe pneumonia. He is on immunosuppressants for his rheumatoid arthritis. He is currently afebrile, hemodynamically stable, saturating well on room air. He was discharged home on cefdinir and doxycycline for 5 more days. He has atrial fibrillation which is rate controlled and is on sotalol, diltiazem, and rivaroxaban. Hypertriglyceridemia. He is on pravastatin for this. Bladder cancer. He has low-grade papillary urothelial carcinoma. He follows up with Dr. Du Moreno at [facility]. He had TURBT 10 days ago. Discharge Data Studies Completed and Pending Completed Studies During Hospitalization Category Date Time Status CT chest wo con [id number] Stat Cat Scan 02/04/24 12:35 Completed CXRP [XR chest 1V portable [id number]] AM LABS Exams 02/06/24 06:00 Completed XR chest 1V portable [id number] Stat Exams 02/04/24 11:47 Completed Pending at discharge Category Date Time Status Blood Culture Stat Lab 02/05/24 12:56 Results Tick Panel Routine Lab 02/05/24 12:56 Results Radiology Impressions Chest CT 02/04/24 12:35 IMPRESSION: 1. New small to moderate size layering RIGHT pleural effusion. Tiny LEFT pleural effusion. 2. Interstitial thickening. Probably related to pulmonary edema fluid overload, new since 05/08/2022. 3. Mildly enlarged and prominent lymph nodes. Probably reactive adenopathy. 4. Frothy secretions in the mid to distal esophagus. Concern for reflux disease. 5. Atherosclerosis aorta. 6. Cholelithiasis. 7. LEFT renal cysts. Chest X-Ray 02/06/24 06:00 IMPRESSION: Mild bibasilar opacities. Laboratory Results WBC 9.21 10^3/uL (3.29-11.43) 02/06/24 04:55 RBC 3.09 10^6/uL (3.85-5.65) L 02/06/24 04:55 Hgb 10.00 g/dL (11.27-16.99) L 02/06/24 04:55 Hct 31.0 % (37-53) L 02/06/24 04:55 MCV 100.3 fl (82-101) 02/06/24 04:55 MCH 32.4 pg (27-33) 02/06/24 04:55 MCHC 32.3 g/dL (30-55) 02/06/24 04:55 RDW 16.5 % (12.1-15.1) H 02/06/24 04:55 Plt Count 376 10^3/cmm (157-399) 02/06/24 04:55 MPV 9.7 fL (7.4-10.4) 02/06/24 04:55 Neut % (Auto) 74.1 % 02/06/24 04:55 Lymph % (Auto) 15.9 % 02/06/24 04:55 [place] % (Auto) 3.0 % 02/06/24 04:55 Eos % (Auto) 6.0 % 02/06/24 04:55 Baso % (Auto) 0.7 % 02/06/24 04:55 Neut # (Auto) 6.83 10^3/uL (1.8-7.7) 02/06/24 04:55 Lymph # (Auto) 1.5 10^3/uL (0.8-4.8) 02/06/24 04:55 [place] # (Auto) 0.3 10^3/uL (0.2-0.9) 02/06/24 04:55 Eos # (Auto) 0.6 10^3/uL (0.0-0.8) 02/06/24 04:55 Baso # (Auto) 0.1 10^3/uL (0.0-0.1) 02/06/24 04:55 Nucleated RBC % (auto) 0 % 02/06/24 04:55 Nucleated RBCs # 0.0 /100WBC 02/06/24 04:55 Specimen Type Arterial 02/04/24 12:06 Sample Site Radial, right 02/04/24 12:06 ABG pH 7.44 (7.35-7.45) 02/04/24 12:06 ABG pCO2 33.4 mmHg (35-45) L 02/04/24 12:06 ABG pO2 58.5 mmHg (80.0-100.0) L 02/04/24 12:06 ABG HCO3 22.5 mmol/L (22-26) 02/04/24 12:06 ABG O2 Saturation 92.2 02/04/24 12:06 ABG Base Excess -1.2 mmol/L (-2.0-2.0) 02/04/24 12:06 Emigdio Test Pos 02/04/24 12:06 A-a O2 Gradient 6.3 mmHg (5-10) 02/04/24 12:06 Hematocrit 33.9 % (42-52) L 02/04/24 12:06 Hgb O2 Saturation 89.1 % (95-100) L 02/04/24 12:06 Carboxyhemoglobin 2.9 %THgb (0.4-20.1) 02/04/24 12:06 Methemoglobin 0.4 % (0.4-1.5) 02/04/24 12:06 Total Hemoglobin 11.1 g/dL (14-18) L 02/04/24 12:06 Sodium 141.0 mmol/L (131-143) 02/04/24 12:06 Potassium 3.4 mmol/L (3.5-5.0) L 02/04/24 12:06 Glucose 161.0 mg/dL (70-115) H 02/04/24 12:06 Ionized Calcium 1.2 mmol/L (1.1-1.4) 02/04/24 12:06 O2 Delivery Device Nc 02/04/24 12:06 O2 Liters/Min 2.0 % 02/04/24 12:06 Business Law Instructor ID [place] 02/04/24 12:06 Sodium 144 mmol/L (136-145) 02/06/24 04:55 Potassium 3.4 mmol/L (3.5-5.1) L 02/06/24 04:55 Chloride 109 mmol/L (98-107) H 02/06/24 04:55 Carbon Dioxide 23 mmol/L (22-29) 02/06/24 04:55 Anion Gap 15.4 (5-19) 02/06/24 04:55 BUN 34 mg/dL (8-23) H 02/06/24 04:55 Creatinine 1.4 mg/dL (0.7-1.2) H 02/06/24 04:55 GFR Calculation Not Reportable 02/06/24 04:55 Glucose 110 mg/dL (65-115) 02/06/24 04:55 POC Glucose 229 mg/dL (70-110) H 02/06/24 11:37 Calculated Osmolality 306 mOsm/kg (285-295) H 02/06/24 04:55 Lactic Acid 1.7 mmol/L (0.5-2.2) 02/04/24 11:45 Calcium 8.3 mg/dL (8.5-10.5) L 02/06/24 04:55 Total Bilirubin 0.4 mg/dL (0.15-1.2) 02/06/24 04:55 AST 13 U/L (0-40) 02/06/24 04:55 ALT 10 U/L (0-41) 02/06/24 04:55 Alkaline Phosphatase 77 U/L (40-130) 02/06/24 04:55 Troponin T Baseline 74 ng/L (0-15) H 02/04/24 11:45 Troponin T 120 Minute 66.38 ng/L (0-15) H 02/04/24 14:06 Delta Troponin T -7.62 ABS# (0-10) L 02/04/24 14:06 Troponin T Hi Sens 6Hr 63.88 ng/L (0-15) H 02/04/24 18:05 Troponin T Hi Sens 6Hr Delta -10.12 ng/L (0-12) L 02/04/24 18:05 NT-Pro-B Natriuret Pep 8321 pg/mL (0-450) H 02/04/24 12:14 Total Protein 6.3 g/dL (6.6-8.7) L 02/06/24 04:55 Albumin 2.7 g/dL (3.5-5.2) L 02/06/24 04:55 Globulin 3.6 g/dL (1.3-4.6) 02/06/24 04:55 Urine Color Yellow (Yellow) 02/04/24 16:26 Urine Appearance Clear (CLEAR) 02/04/24 16:26 Urine pH 6 (5-7) 02/04/24 16:26 Ur Specific [place] 1.010 (1.005-1.030) 02/04/24 16:26 Urine Protein 2+ (Negative) H 02/04/24 16:26 Urine Glucose (UA) Norm (Normal) 02/04/24 16:26 Urine Ketones Negative (Negative) 02/04/24 16:26 Urine Blood Neg (Negative) 02/04/24 16:26 Urine Nitrate Negative (Negative) 02/04/24 16:26 Urine Bilirubin Neg (Negative) 02/04/24 16:26 Urine Urobilinogen Norm mg/dL (Negative) 02/04/24 16:26 Ur Leukocyte Esterase Negative (Negative) 02/04/24 16:26 Urine RBC 0-4 /hpf (0-2) H 02/04/24 16:26 Urine WBC 5-10 /hpf (0-5) H 02/04/24 16:26 Ur Squamous Epith Cells 0-4 /hpf (0-5) H 02/04/24 16:26 Amorphous Sediment Not Reportable 02/04/24 16:26 Urine Bacteria None /hpf (NONE) 02/04/24 16:26 Urine Mucus None /hpf 02/04/24 16:26 Ur Oval Fat Bodies 1+ /hpf 02/04/24 16:26 Lyme Ab (Western Blot) <0.90 index 02/05/24 12:56 Vitals Last Vital Signs Temp 97.9 F 02/06/24 17:30 Pulse 68 02/06/24 17:30 Resp 22 H 02/06/24 17:30 BP 118/53 02/06/24 17:30 Pulse Ox 95 02/06/24 17:30 O2 Del Method Room Air 02/06/24 11:40 O2 Flow Rate 2.5 02/05/24 10:00 Discharge Plan Discharge Patient Disposition: Home Condition: Stable Prescriptions: New doxycycline monohydrate 100 mg Tablet 100 mg PO BID 5 Days Qty: 10 0RF isosorbide mononitrate 60 mg Tablet Extended Release 24 Hr 60 mg PO DAILY Qty: 30 0RF cefdinir 300 mg capsule 300 mg PO BID 5 Days Qty: 10 0RF Continued duloxetine [Cymbalta] 20 mg capsule,delayed release(DR/EC) 20 mg PO QAM ferrous sulfate 325 mg (65 mg iron) tablet 325 mg PO QAM pantoprazole 40 mg tablet,delayed release (DR/EC) 40 mg PO BEDTIME tamsulosin 0.4 mg capsule 0.4 mg PO QPM Qty: 90 3RF folic acid 1 mg tablet 1 mg PO QAM methotrexate sodium 2.5 mg tablet 20 mg PO Q7D Rx Instructions: 8 TABS WEEKLY ON SATURDAY sucralfate 1 gram tablet 1 g PO QID PRN (Reason: UNKNOWN) gabapentin 100 mg capsule 200 mg PO TID Enbrel SureClick 50 mg/mL (1 mL) pen injector 50 mg SUBCUT Q7D Rx Instructions: ON FRI lisinopril 40 mg tablet 40 mg PO QAM Lantus Solostar U-100 Insulin 100 unit/mL (3 mL) insulin pen 20 unit SUBCUT BID Dose Instruction: inject 40 units SUBCUTANEOUSLY IN THE EVENING metformin 500 mg tablet 500 mg PO BID Hold Instructions: Resume on 10/24/23. Xarelto 20 mg tablet 20 mg PO BEDTIME Qty: 90 3RF Hold Instructions: Resume on 09/15/22. sotalol 80 mg tablet 120 mg PO BID Qty: 180 3RF pravastatin 40 mg tablet 40 mg PO DAILY Qty: 90 3RF hydralazine 50 mg tablet 50 mg PO BID Qty: 180 3RF clopidogrel [Plavix] 75 mg tablet 75 mg PO QAM Hold Instructions: Resume on 03/16/21. diltiazem HCl [Cartia XT] 180 mg capsule,extended release 24hr 180 mg PO DAILY Qty: 90 1RF acetaminophen 500 mg Tablet 500 mg PO Q6H PRN (Reason: Pain) nitroglycerin [Nitrostat] 0.4 mg Tablet, Sublingual 0.4 mg SUBLINGUAL Q5M PRN (Reason: Chest Pain) Rx Instructions: do not exceed 3 doses per episode potassium chloride 10 mEq capsule, extended release 20 meq PO QAM cetirizine 10 mg tablet 10 mg PO BEDTIME insulin aspart U-100 [Novolog FlexPen U-100 Insulin] 100 unit/mL (3 mL) insulin pen See Rx Instructions .ROUTE .COMPLEX Rx Instructions: sliding scale tid furosemide 40 mg tablet 40 mg PO BID Senokot 8.6 mg Tablet 17.2 mg PO BEDTIME PRN (Reason: Constipation) Centrum Men 8 mg iron- 200 mcg-600 mcg Tablet 1 tab PO QAM (DME) pen needle, diabetic 32 gauge x 5/32 needle See Rx Instructions .ROUTE Rx Instructions: test 4 times daily albuterol sulfate 90 mcg/actuation HFA aerosol inhaler 1 puff INHALATION Q4H PRN (Reason: Wheezing) Discontinued isosorbide mononitrate 60 mg tablet extended release 24 hr 30 mg PO DAILY Discharge Orders: Discharge Order (Routine); Ordered 02/06/24 Ordered By: Danica Carson Referrals: Bree Perkins MD [Primary Care Provider] - 1 week Ginna Barnes FNP [Nurse Practitioner] - 7-10 days Discharge Diet: Diabetic Discharge Activity: Resume usual activity Patient Instructions: Opioid Safety Discharge Attestations Time Spent in Discharge Care*: greater than 30 min Status at Discharge: Cognitive status at discharge: cognitively intact , Behavioral status at discharge: cooperative , Quality Metrics Clinical Quality Measures [ No reported AMI, CVA or VTE this stay] Coding Level of Care Code Acute Code for Chg Fwd Diagnoses Acute on chronic heart failure with preserved ejection fraction I50.33 Accelerated hypertension I10 Low grade fever R50.9 Rheumatoid arthritis M06.9 Coronary artery disease I25.10 Type 2 diabetes mellitus with hyperglycemia, with long-term current use of insulin E11.65; Z79.4 Diabetes mellitus complication status: with hyperglycemia Diabetes mellitus watcher [employer] goods insulin use: with fpc use Diabetes mellitus type: type 2 Peripheral arterial disease I73.9 Hypertriglyceridemia E78.1 Anticoagulation adequate with anticoagulant therapy Z79.01 Atrial fibrillation I48.91 Malignant neoplasm of overlapping sites of bladder C67.8 Bladder location: overlapping sites BPH loc w urin obs/LUTS N40.1 Depression F32.A Nicotine dependence, cigarettes, with other nicotine-induced disorders F17.218
--- NOTE | 2024-02-06 18:39 | PM.DCS ---
Discharge Providers Date of Admission: 02/04/24 16:40 Date of Discharge: February 06, 2024 Attending Provider at Admission: Maxine Donahue MD Attending Provider at Discharge: Danica Carson MD Primary Care Provider: Bree Perkins MD Diagnoses at Discharge Discharge Diagnosis (1) Acute on chronic heart failure with preserved ejection fraction: Status: Acute (2) Accelerated hypertension: Status: Acute (3) Low grade fever: Status: Acute (4) Rheumatoid arthritis: Status: Chronic (5) Coronary artery disease: Status: Chronic (6) Diabetes mellitus: Status: Chronic Qualifiers: Diabetes mellitus type: type 2 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 mellitus 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 insulin use: with care home use Diabetes mellitus complication status: with hyperglycemia Qualified Code(s): E11.65 - Type 2 diabetes mellitus with hyperglycemia; Z79.4 - group home (current) use of insulin (7) Peripheral arterial disease: Status: Chronic (8) Hypertriglyceridemia: Status: Chronic (9) Anticoagulation adequate with anticoagulant therapy: Status: Chronic Permanent problem details: xarelto (10) Atrial fibrillation: Status: Chronic Permanent problem details: history of chemical cardioversion with sotalol (11) Bladder cancer: Status: Chronic Qualifiers: Bladder location: overlapping sites Qualified Code(s): C67.8 - Malignant neoplasm of overlapping sites of bladder Permanent problem details: Low-grade noninvasive papillary urothelial carcinoma cystoscopy done in December 2020, status post intravesical mitomycin after each cystoscopy and status post induction therapy with weekly BCG intravesically from August 18, 2021 through September 22, 2021 Follow-up cystoscopy done on January 16, 2022 showed persistent/recurrence low-grade urothelial carcinoma status post fulguration followed by postop intravesical mitomycin. (12) BPH loc w urin obs/LUTS: Status: Chronic Permanent problem details: Started on TAMSULOSIN March 2021 for chronic BPH symptoms (13) Depression: Status: Chronic (14) Nicotine dependence, cigarettes, with other nicotine-induced disorders: Status: Chronic Reason for Visit Reason for Visit: sob Brief History: Please see H&P for full details of history of presenting illness. Hospital Course Hospital Course He was admitted for acute on chronic heart failure with preserved ejection fraction. He has responded well to IV diuresis and is saturating well on room air. He is currently net negative. He was not weighing himself daily at home. He was advised to do so. His peripheral edema has improved significantly. He had accelerated hypertension which was thought to be due to volume overload. His blood pressure is stable now. His Imdur was increased to 60 mg daily. He also had right lower lobe pneumonia. He is on immunosuppressants for his rheumatoid arthritis. He is currently afebrile, hemodynamically stable, saturating well on room air. He was discharged home on cefdinir and doxycycline for 5 more days. He has atrial fibrillation which is rate controlled and is on sotalol, diltiazem, and rivaroxaban. Hypertriglyceridemia. He is on pravastatin for this. Bladder cancer. He has low-grade papillary urothelial carcinoma. He follows up with Dr. Du Moreno at [facility]. He had TURBT 10 days ago. Discharge Data Studies Completed and Pending Completed Studies During Hospitalization Category Date Time Status CT chest wo con [id number] Stat Cat Scan 02/04/24 12:35 Completed CXRP [XR chest 1V portable [id number]] AM LABS Exams 02/06/24 06:00 Completed XR chest 1V portable [id number] Stat Exams 02/04/24 11:47 Completed Pending at discharge Category Date Time Status Blood Culture Stat Lab 02/05/24 12:56 Results Tick Panel Routine Lab 02/05/24 12:56 Results Radiology Impressions Chest CT 02/04/24 12:35 IMPRESSION: 1. New small to moderate size layering RIGHT pleural effusion. Tiny LEFT pleural effusion. 2. Interstitial thickening. Probably related to pulmonary edema fluid overload, new since 05/08/2022. 3. Mildly enlarged and prominent lymph nodes. Probably reactive adenopathy. 4. Frothy secretions in the mid to distal esophagus. Concern for reflux disease. 5. Atherosclerosis aorta. 6. Cholelithiasis. 7. LEFT renal cysts. Chest X-Ray 02/06/24 06:00 IMPRESSION: Mild bibasilar opacities. Laboratory Results WBC 9.21 10^3/uL (3.29-11.43) 02/06/24 04:55 RBC 3.09 10^6/uL (3.85-5.65) L 02/06/24 04:55 Hgb 10.00 g/dL (11.27-16.99) L 02/06/24 04:55 Hct 31.0 % (37-53) L 02/06/24 04:55 MCV 100.3 fl (82-101) 02/06/24 04:55 MCH 32.4 pg (27-33) 02/06/24 04:55 MCHC 32.3 g/dL (30-55) 02/06/24 04:55 RDW 16.5 % (12.1-15.1) H 02/06/24 04:55 Plt Count 376 10^3/cmm (157-399) 02/06/24 04:55 MPV 9.7 fL (7.4-10.4) 02/06/24 04:55 Neut % (Auto) 74.1 % 02/06/24 04:55 Lymph % (Auto) 15.9 % 02/06/24 04:55 [place] % (Auto) 3.0 % 02/06/24 04:55 Eos % (Auto) 6.0 % 02/06/24 04:55 Baso % (Auto) 0.7 % 02/06/24 04:55 Neut # (Auto) 6.83 10^3/uL (1.8-7.7) 02/06/24 04:55 Lymph # (Auto) 1.5 10^3/uL (0.8-4.8) 02/06/24 04:55 [place] # (Auto) 0.3 10^3/uL (0.2-0.9) 02/06/24 04:55 Eos # (Auto) 0.6 10^3/uL (0.0-0.8) 02/06/24 04:55 Baso # (Auto) 0.1 10^3/uL (0.0-0.1) 02/06/24 04:55 Nucleated RBC % (auto) 0 % 02/06/24 04:55 Nucleated RBCs # 0.0 /100WBC 02/06/24 04:55 Specimen Type Arterial 02/04/24 12:06 Sample Site Radial, right 02/04/24 12:06 ABG pH 7.44 (7.35-7.45) 02/04/24 12:06 ABG pCO2 33.4 mmHg (35-45) L 02/04/24 12:06 ABG pO2 58.5 mmHg (80.0-100.0) L 02/04/24 12:06 ABG HCO3 22.5 mmol/L (22-26) 02/04/24 12:06 ABG O2 Saturation 92.2 02/04/24 12:06 ABG Base Excess -1.2 mmol/L (-2.0-2.0) 02/04/24 12:06 Emigdio Test Pos 02/04/24 12:06 A-a O2 Gradient 6.3 mmHg (5-10) 02/04/24 12:06 Hematocrit 33.9 % (42-52) L 02/04/24 12:06 Hgb O2 Saturation 89.1 % (95-100) L 02/04/24 12:06 Carboxyhemoglobin 2.9 %THgb (0.4-20.1) 02/04/24 12:06 Methemoglobin 0.4 % (0.4-1.5) 02/04/24 12:06 Total Hemoglobin 11.1 g/dL (14-18) L 02/04/24 12:06 Sodium 141.0 mmol/L (131-143) 02/04/24 12:06 Potassium 3.4 mmol/L (3.5-5.0) L 02/04/24 12:06 Glucose 161.0 mg/dL (70-115) H 02/04/24 12:06 Ionized Calcium 1.2 mmol/L (1.1-1.4) 02/04/24 12:06 O2 Delivery Device Nc 02/04/24 12:06 O2 Liters/Min 2.0 % 02/04/24 12:06 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 ID [place] 02/04/24 12:06 Sodium 144 mmol/L (136-145) 02/06/24 04:55 Potassium 3.4 mmol/L (3.5-5.1) L 02/06/24 04:55 Chloride 109 mmol/L (98-107) H 02/06/24 04:55 Carbon Dioxide 23 mmol/L (22-29) 02/06/24 04:55 Anion Gap 15.4 (5-19) 02/06/24 04:55 BUN 34 mg/dL (8-23) H 02/06/24 04:55 Creatinine 1.4 mg/dL (0.7-1.2) H 02/06/24 04:55 GFR Calculation Not Reportable 02/06/24 04:55 Glucose 110 mg/dL (65-115) 02/06/24 04:55 POC Glucose 229 mg/dL (70-110) H 02/06/24 11:37 Calculated Osmolality 306 mOsm/kg (285-295) H 02/06/24 04:55 Lactic Acid 1.7 mmol/L (0.5-2.2) 02/04/24 11:45 Calcium 8.3 mg/dL (8.5-10.5) L 02/06/24 04:55 Total Bilirubin 0.4 mg/dL (0.15-1.2) 02/06/24 04:55 AST 13 U/L (0-40) 02/06/24 04:55 ALT 10 U/L (0-41) 02/06/24 04:55 Alkaline Phosphatase 77 U/L (40-130) 02/06/24 04:55 Troponin T Baseline 74 ng/L (0-15) H 02/04/24 11:45 Troponin T 120 Minute 66.38 ng/L (0-15) H 02/04/24 14:06 Delta Troponin T -7.62 ABS# (0-10) L 02/04/24 14:06 Troponin T Hi Sens 6Hr 63.88 ng/L (0-15) H 02/04/24 18:05 Troponin T Hi Sens 6Hr Delta -10.12 ng/L (0-12) L 02/04/24 18:05 NT-Pro-B Natriuret Pep 8321 pg/mL (0-450) H 02/04/24 12:14 Total Protein 6.3 g/dL (6.6-8.7) L 02/06/24 04:55 Albumin 2.7 g/dL (3.5-5.2) L 02/06/24 04:55 Globulin 3.6 g/dL (1.3-4.6) 02/06/24 04:55 Urine Color Yellow (Yellow) 02/04/24 16:26 Urine Appearance Clear (CLEAR) 02/04/24 16:26 Urine pH 6 (5-7) 02/04/24 16:26 Ur Specific [place] 1.010 (1.005-1.030) 02/04/24 16:26 Urine Protein 2+ (Negative) H 02/04/24 16:26 Urine Glucose (UA) Norm (Normal) 02/04/24 16:26 Urine Ketones Negative (Negative) 02/04/24 16:26 Urine Blood Neg (Negative) 02/04/24 16:26 Urine Nitrate Negative (Negative) 02/04/24 16:26 Urine Bilirubin Neg (Negative) 02/04/24 16:26 Urine Urobilinogen Norm mg/dL (Negative) 02/04/24 16:26 Ur Leukocyte Esterase Negative (Negative) 02/04/24 16:26 Urine RBC 0-4 /hpf (0-2) H 02/04/24 16:26 Urine WBC 5-10 /hpf (0-5) H 02/04/24 16:26 Ur Squamous Epith Cells 0-4 /hpf (0-5) H 02/04/24 16:26 Amorphous Sediment Not Reportable 02/04/24 16:26 Urine Bacteria None /hpf (NONE) 02/04/24 16:26 Urine Mucus None /hpf 02/04/24 16:26 Ur Oval Fat Bodies 1+ /hpf 02/04/24 16:26 Lyme Ab (Western Blot) <0.90 index 02/05/24 12:56 Vitals Last Vital Signs Temp 97.9 F 02/06/24 17:30 Pulse 68 02/06/24 17:30 Resp 22 H 02/06/24 17:30 BP 118/53 02/06/24 17:30 Pulse Ox 95 02/06/24 17:30 O2 Del Method Room Air 02/06/24 11:40 O2 Flow Rate 2.5 02/05/24 10:00 Discharge Plan Discharge Patient Disposition: Home Condition: Stable Prescriptions: New doxycycline monohydrate 100 mg Tablet 100 mg PO BID 5 Days Qty: 10 0RF isosorbide mononitrate 60 mg Tablet Extended Release 24 Hr 60 mg PO DAILY Qty: 30 0RF cefdinir 300 mg capsule 300 mg PO BID 5 Days Qty: 10 0RF Continued duloxetine [Cymbalta] 20 mg capsule,delayed release(DR/EC) 20 mg PO QAM ferrous sulfate 325 mg (65 mg iron) tablet 325 mg PO QAM pantoprazole 40 mg tablet,delayed release (DR/EC) 40 mg PO BEDTIME tamsulosin 0.4 mg capsule 0.4 mg PO QPM Qty: 90 3RF folic acid 1 mg tablet 1 mg PO QAM methotrexate sodium 2.5 mg tablet 20 mg PO Q7D Rx Instructions: 8 TABS WEEKLY ON SATURDAY sucralfate 1 gram tablet 1 g PO QID PRN (Reason: UNKNOWN) gabapentin 100 mg capsule 200 mg PO TID Enbrel SureClick 50 mg/mL (1 mL) pen injector 50 mg SUBCUT Q7D Rx Instructions: ON SAT lisinopril 40 mg tablet 40 mg PO QAM Lantus Solostar U-100 Insulin 100 unit/mL (3 mL) insulin pen 20 unit SUBCUT BID Dose Instruction: inject 40 units SUBCUTANEOUSLY IN THE EVENING metformin 500 mg tablet 500 mg PO BID Hold Instructions: Resume on 10/24/23. Xarelto 20 mg tablet 20 mg PO BEDTIME Qty: 90 3RF Hold Instructions: Resume on 09/15/22. sotalol 80 mg tablet 120 mg PO BID Qty: 180 3RF pravastatin 40 mg tablet 40 mg PO DAILY Qty: 90 3RF hydralazine 50 mg tablet 50 mg PO BID Qty: 180 3RF clopidogrel [Plavix] 75 mg tablet 75 mg PO QAM Hold Instructions: Resume on 03/16/21. diltiazem HCl [Cartia XT] 180 mg capsule,extended release 24hr 180 mg PO DAILY Qty: 90 1RF acetaminophen 500 mg Tablet 500 mg PO Q6H PRN (Reason: Pain) nitroglycerin [Nitrostat] 0.4 mg Tablet, Sublingual 0.4 mg SUBLINGUAL Q5M PRN (Reason: Chest Pain) Rx Instructions: do not exceed 3 doses per episode potassium chloride 10 mEq capsule, extended release 20 meq PO QAM cetirizine 10 mg tablet 10 mg PO BEDTIME insulin aspart U-100 [Novolog FlexPen U-100 Insulin] 100 unit/mL (3 mL) insulin pen See Rx Instructions .ROUTE .COMPLEX Rx Instructions: sliding scale tid furosemide 40 mg tablet 40 mg PO BID Senokot 8.6 mg Tablet 17.2 mg PO BEDTIME PRN (Reason: Constipation) Centrum Men 8 mg iron- 200 mcg-600 mcg Tablet 1 tab PO QAM (DME) pen needle, diabetic 32 gauge x 5/32 needle See Rx Instructions .ROUTE Rx Instructions: test 4 times daily albuterol sulfate 90 mcg/actuation HFA aerosol inhaler 1 puff INHALATION Q4H PRN (Reason: Wheezing) Discontinued isosorbide mononitrate 60 mg tablet extended release 24 hr 30 mg PO DAILY Discharge Orders: Discharge Order (Routine); Ordered 02/06/24 Ordered By: Danica Carson Referrals: Bree Perkins MD [Primary Care Provider] - 1 week Ginna Barnes FNP [Nurse Practitioner] - 7-10 days Discharge Diet: Diabetic Discharge Activity: Resume usual activity Patient Instructions: Opioid Safety Discharge Attestations Time Spent in Discharge Care*: greater than 30 min Specific Discharge Activities: educating patient, documenting/other paperwork and evaluating patient/reviewing data Status at Discharge: Cognitive status at discharge: cognitively intact, Behavioral status at discharge: cooperative, Quality Metrics Clinical Quality Measures [ No reported AMI, CVA or VTE this stay] Coding Level of Care Code Acute Code for Chg Fwd Diagnoses Acute on chronic heart failure with preserved ejection fraction I50.33 Accelerated hypertension I10 Low grade fever R50.9 Rheumatoid arthritis M06.9 Coronary artery disease I25.10 Type 2 diabetes mellitus with hyperglycemia, with long-term current use of insulin E11.65; Z79.4 Diabetes mellitus type: type 2 Diabetes mellitus 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
[2024-02-12 20:25] LABS: RMSF IGG NOT DETECTED; RMSF IGM NOT DETECTED
[2024-02-12 21:25] LABS: E. Chaffeensis AB IGG <1:64; E. Chaffeensis AB IGM <1:20
== END 2024-02-06 18:04 | disposition home or self-care (01) | DRG 291 ==
LOC: ER 15:27 → CSU 18:44
PROVIDERS: Student in an Organized Health Care Education/Training Program; Admitting Provider Hospitalist; Emergency Provider Emergency Medicine; PCP Family Medicine; Visit Provider Student in an Organized Health Care Education/Training Program
DX: I11.0 Hypertensive heart disease with heart failure (principal); I50.33 Acute on chronic diastolic (congestive) heart failure; J18.9 Pneumonia, unspecified organism; D84.821 Immunodeficiency due to drugs; I48.20 Chronic atrial fibrillation, unspecified; M06.9 Rheumatoid arthritis, unspecified; Z79.631 Long term (current) use of antimetabolite agent; Z79.69 Long term (current) use of other immunomodulators and immunosuppressants; I25.10 Atherosclerotic heart disease of native coronary artery without angina pectoris; E11.40 Type 2 diabetes mellitus with diabetic neuropathy, unspecified; Z79.4 Long term (current) use of insulin; Z79.84 Long term (current) use of oral hypoglycemic drugs; Z79.01 Long term (current) use of anticoagulants; Z79.02 Long term (current) use of antithrombotics/antiplatelets; E78.1 Pure hyperglyceridemia; N40.1 Benign prostatic hyperplasia with lower urinary tract symptoms; Z85.51 Personal history of malignant neoplasm of bladder; I73.9 Peripheral vascular disease, unspecified; Z89.612 Acquired absence of left leg above knee; F17.210 Nicotine dependence, cigarettes, uncomplicated; F32.A Depression, unspecified
CPT/HCPCS: 36415; 36416; 36600; 71045; 71046; 71250; 80051; 80053; 81001; 82330; 82805; 82962; 83605; 83880; 84484; 85025; 86403; 86618; 86666; 86757; 87040; 87449; 93005; 94640; 96372; 96374; 96376; 99285; J0360; J0696; J1815; J1940

== ENCOUNTER → 2024-02-19 12:44 | Outpatient (BNVA) | payer MEDICARE, BC, SELFPAY | PROVIDERS: PCP Family Medicine; Visit Provider Internal Medicine Cardiovascular Disease | DX: I11.0 Hypertensive heart disease with heart failure (principal); I50.9 Heart failure, unspecified; Z95.5 Presence of coronary angioplasty implant and graft; E78.1 Pure hyperglyceridemia; Z95.828 Presence of other vascular implants and grafts; Z72.0 Tobacco use; Z79.01 Long term (current) use of anticoagulants; I25.10 Atherosclerotic heart disease of native coronary artery without angina pectoris; Z98.890 Other specified postprocedural states; I48.91 Unspecified atrial fibrillation; I65.23 Occlusion and stenosis of bilateral carotid arteries; E11.65 Type 2 diabetes mellitus with hyperglycemia; Z79.4 Long term (current) use of insulin; Z89.612 Acquired absence of left leg above knee; C67.8 Malignant neoplasm of overlapping sites of bladder; E11.40 Type 2 diabetes mellitus with diabetic neuropathy, unspecified; E11.51 Type 2 diabetes mellitus with diabetic peripheral angiopathy without gangrene; Z79.84 Long term (current) use of oral hypoglycemic drugs | CPT/HCPCS: 99214 ==

== ENCOUNTER 2024-03-04 15:52 | Outpatient (CLI) | payer MEDICARE, BC, SELFPAY ==
--- NOTE | 2024-03-04 16:12 | XRR_ITS ---
PROCEDURE INFORMATION: Exam: XR Chest Exam date and time: 03/04/2024 4:15 PM Age: 78 years old Clinical indication: Condition or disease; Lung condition and disease; Pneumonia TECHNIQUE: Imaging protocol: Radiologic exam of the chest. Views: 2 views. COMPARISON: CR (CHEST, ) 02/06/2024 4:57 AM FINDINGS: Lungs: Mild infiltrate or fibrosis in the right lower lobe, improved since the prior study. Slight interstitial prominence at the left lung base. Pleural spaces: Unremarkable. No pleural effusion. No pneumothorax. Heart/Mediastinum: The heart mediastinum are normal. Bones/joints: Unremarkable. XR/XR chest 2V* [id number] IMPRESSION: Improved pulmonary opacities.
== END 2024-03-04 15:53 | disposition home or self-care (01) ==
PROVIDERS: PCP Family Medicine; Visit Provider Family Medicine
DX: J18.9 Pneumonia, unspecified organism (principal); R91.8 Other nonspecific abnormal finding of lung field
CPT/HCPCS: 71046

== ENCOUNTER → 2024-03-27 10:30 | Outpatient (BNVA) | payer OTHER, SELFPAY | PROVIDERS: PCP Family Medicine; Visit Provider Nurse Practitioner Family | DX: D48.5 Neoplasm of uncertain behavior of skin (principal); L57.0 Actinic keratosis; L21.8 Other seborrheic dermatitis; L81.4 Other melanin hyperpigmentation; L82.1 Other seborrheic keratosis; D69.2 Other nonthrombocytopenic purpura; L98.8 Other specified disorders of the skin and subcutaneous tissue | CPT/HCPCS: 11102; 17000; 99204 ==

== ENCOUNTER → 2024-04-15 08:58 | Outpatient (BNVA) | payer MEDICARE, OTHER, SELFPAY | PROVIDERS: PCP Family Medicine; Visit Provider Thoracic Surgery (Cardiothoracic Vascular Surgery) | DX: E11.52 Type 2 diabetes mellitus with diabetic peripheral angiopathy with gangrene (principal); E11.622 Type 2 diabetes mellitus with other skin ulcer; L97.811 Non-pressure chronic ulcer of other part of right lower leg limited to breakdown of skin; L97.311 Non-pressure chronic ulcer of right ankle limited to breakdown of skin | CPT/HCPCS: 97597; 97598; 99213; A6021 ==

== ENCOUNTER → 2024-04-22 09:11 | Outpatient (BNVA) | payer MEDICARE, BC, SELFPAY | PROVIDERS: PCP Family Medicine; Visit Provider Thoracic Surgery (Cardiothoracic Vascular Surgery) | DX: E11.52 Type 2 diabetes mellitus with diabetic peripheral angiopathy with gangrene (principal); E11.622 Type 2 diabetes mellitus with other skin ulcer; L97.811 Non-pressure chronic ulcer of other part of right lower leg limited to breakdown of skin; L97.311 Non-pressure chronic ulcer of right ankle limited to breakdown of skin | CPT/HCPCS: 97597; 97598 ==

== ENCOUNTER → 2024-04-28 15:35 | Outpatient (BNVA) | payer MEDICARE, BC, SELFPAY | PROVIDERS: PCP Family Medicine; Visit Provider Thoracic Surgery (Cardiothoracic Vascular Surgery) | DX: E11.52 Type 2 diabetes mellitus with diabetic peripheral angiopathy with gangrene (principal); E11.622 Type 2 diabetes mellitus with other skin ulcer; L97.811 Non-pressure chronic ulcer of other part of right lower leg limited to breakdown of skin; L97.311 Non-pressure chronic ulcer of right ankle limited to breakdown of skin | CPT/HCPCS: 97597; A6021 ==

== ENCOUNTER → 2024-05-04 09:28 | Outpatient (BNVA) | payer MEDICARE, BC, SELFPAY | PROVIDERS: PCP Family Medicine; Visit Provider Dermatology | DX: C44.329 Squamous cell carcinoma of skin of other parts of face (principal); L57.0 Actinic keratosis | CPT/HCPCS: 14041; 17000; 17311 ==

== ENCOUNTER → 2024-05-05 14:57 | Outpatient (BNVA) | payer MEDICARE, BC, SELFPAY | PROVIDERS: PCP Family Medicine; Visit Provider Thoracic Surgery (Cardiothoracic Vascular Surgery) | DX: E11.52 Type 2 diabetes mellitus with diabetic peripheral angiopathy with gangrene (principal); E11.622 Type 2 diabetes mellitus with other skin ulcer; L97.811 Non-pressure chronic ulcer of other part of right lower leg limited to breakdown of skin; L97.311 Non-pressure chronic ulcer of right ankle limited to breakdown of skin | CPT/HCPCS: 97597; A6021 ==

== ENCOUNTER → 2024-05-11 15:18 | Outpatient (BNVA) | payer MEDICARE, BC, SELFPAY | PROVIDERS: PCP Family Medicine; Visit Provider Thoracic Surgery (Cardiothoracic Vascular Surgery) | DX: E11.52 Type 2 diabetes mellitus with diabetic peripheral angiopathy with gangrene (principal); E11.622 Type 2 diabetes mellitus with other skin ulcer; L97.811 Non-pressure chronic ulcer of other part of right lower leg limited to breakdown of skin | CPT/HCPCS: 97597; A6021; A6212 ×2 ==

== ENCOUNTER → 2024-05-25 15:00 | Outpatient (BNVA) | payer MEDICARE, BC, SELFPAY | PROVIDERS: PCP Family Medicine; Visit Provider Thoracic Surgery (Cardiothoracic Vascular Surgery) | DX: E11.52 Type 2 diabetes mellitus with diabetic peripheral angiopathy with gangrene (principal); E11.622 Type 2 diabetes mellitus with other skin ulcer; L97.811 Non-pressure chronic ulcer of other part of right lower leg limited to breakdown of skin | CPT/HCPCS: 97597 ==

== ENCOUNTER → 2024-06-02 15:02 | Outpatient (BNVA) | payer MEDICARE, BC, SELFPAY | PROVIDERS: PCP Family Medicine; Visit Provider Thoracic Surgery (Cardiothoracic Vascular Surgery) | DX: E11.52 Type 2 diabetes mellitus with diabetic peripheral angiopathy with gangrene (principal); E11.622 Type 2 diabetes mellitus with other skin ulcer; L97.811 Non-pressure chronic ulcer of other part of right lower leg limited to breakdown of skin; Z09 Encounter for follow-up examination after completed treatment for conditions other than malignant neoplasm | CPT/HCPCS: 97597 ==

== ENCOUNTER → 2024-06-09 15:18 | Outpatient (BNVA) | payer MEDICARE, BC, SELFPAY | PROVIDERS: PCP Family Medicine; Visit Provider Thoracic Surgery (Cardiothoracic Vascular Surgery) | DX: E11.52 Type 2 diabetes mellitus with diabetic peripheral angiopathy with gangrene (principal); E11.622 Type 2 diabetes mellitus with other skin ulcer; L97.811 Non-pressure chronic ulcer of other part of right lower leg limited to breakdown of skin | CPT/HCPCS: 97597 ==

== ENCOUNTER → 2024-06-16 14:01 | Outpatient (BNVA) | payer MEDICARE, BC, SELFPAY | PROVIDERS: PCP Family Medicine; Visit Provider Thoracic Surgery (Cardiothoracic Vascular Surgery) | DX: E11.52 Type 2 diabetes mellitus with diabetic peripheral angiopathy with gangrene (principal); E11.622 Type 2 diabetes mellitus with other skin ulcer; L97.811 Non-pressure chronic ulcer of other part of right lower leg limited to breakdown of skin | CPT/HCPCS: 97597 ==

== ENCOUNTER → 2024-06-24 11:10 | Outpatient (BNVA) | payer MEDICARE, BC, SELFPAY | PROVIDERS: PCP Family Medicine; Visit Provider Thoracic Surgery (Cardiothoracic Vascular Surgery) | DX: E11.52 Type 2 diabetes mellitus with diabetic peripheral angiopathy with gangrene (principal); E11.622 Type 2 diabetes mellitus with other skin ulcer; L97.811 Non-pressure chronic ulcer of other part of right lower leg limited to breakdown of skin; S91.011D Laceration without foreign body, right ankle, subsequent encounter; W22.8XXD Striking against or struck by other objects, subsequent encounter; Z09 Encounter for follow-up examination after completed treatment for conditions other than malignant neoplasm | CPT/HCPCS: 97597 ==

== ENCOUNTER → 2024-07-23 15:10 | Outpatient (BNVA) | payer MEDICARE, BC, SELFPAY | PROVIDERS: PCP Family Medicine; Visit Provider Thoracic Surgery (Cardiothoracic Vascular Surgery) | DX: E11.622 Type 2 diabetes mellitus with other skin ulcer (principal); L97.811 Non-pressure chronic ulcer of other part of right lower leg limited to breakdown of skin; L97.311 Non-pressure chronic ulcer of right ankle limited to breakdown of skin | CPT/HCPCS: 97597; A6212 ==

== ENCOUNTER → 2024-07-30 14:39 | Outpatient (BNVA) | payer MEDICARE, BC, SELFPAY | PROVIDERS: PCP Family Medicine; Visit Provider Thoracic Surgery (Cardiothoracic Vascular Surgery) | DX: I73.9 Peripheral vascular disease, unspecified (principal); L97.311 Non-pressure chronic ulcer of right ankle limited to breakdown of skin; E11.52 Type 2 diabetes mellitus with diabetic peripheral angiopathy with gangrene; E11.622 Type 2 diabetes mellitus with other skin ulcer; L97.811 Non-pressure chronic ulcer of other part of right lower leg limited to breakdown of skin | CPT/HCPCS: 97597 ==

== ENCOUNTER → 2024-08-05 14:20 | Outpatient (BNVA) | payer MEDICARE, BC, SELFPAY | PROVIDERS: PCP Family Medicine; Visit Provider Thoracic Surgery (Cardiothoracic Vascular Surgery) | DX: I73.9 Peripheral vascular disease, unspecified (principal); L97.311 Non-pressure chronic ulcer of right ankle limited to breakdown of skin; E11.52 Type 2 diabetes mellitus with diabetic peripheral angiopathy with gangrene; E11.622 Type 2 diabetes mellitus with other skin ulcer; L97.811 Non-pressure chronic ulcer of other part of right lower leg limited to breakdown of skin | CPT/HCPCS: 97597; A6210 ==

== ENCOUNTER → 2024-08-11 10:34 | Outpatient (BNVA) | payer MEDICARE, BC, SELFPAY | PROVIDERS: PCP Family Medicine; Visit Provider Thoracic Surgery (Cardiothoracic Vascular Surgery) | DX: I96 Gangrene, not elsewhere classified (principal); I87.2 Venous insufficiency (chronic) (peripheral); L97.321 Non-pressure chronic ulcer of left ankle limited to breakdown of skin; L97.811 Non-pressure chronic ulcer of other part of right lower leg limited to breakdown of skin | CPT/HCPCS: 97597; A6210; A6212 ==

== ENCOUNTER → 2024-08-20 10:30 | Outpatient (BNVA) | payer MEDICARE, SELFPAY | PROVIDERS: PCP Family Medicine; Visit Provider Thoracic Surgery (Cardiothoracic Vascular Surgery) | DX: I87.2 Venous insufficiency (chronic) (peripheral) (principal); I73.9 Peripheral vascular disease, unspecified; L97.311 Non-pressure chronic ulcer of right ankle limited to breakdown of skin; E11.52 Type 2 diabetes mellitus with diabetic peripheral angiopathy with gangrene; E11.622 Type 2 diabetes mellitus with other skin ulcer; L97.811 Non-pressure chronic ulcer of other part of right lower leg limited to breakdown of skin | CPT/HCPCS: 97597; A6210 ==

== ENCOUNTER → 2024-08-24 12:49 | Outpatient (BNVA) | payer MEDICARE, SELFPAY | PROVIDERS: PCP Family Medicine; Visit Provider Internal Medicine Cardiovascular Disease | DX: I11.0 Hypertensive heart disease with heart failure (principal); I50.9 Heart failure, unspecified; Z95.5 Presence of coronary angioplasty implant and graft; Z95.828 Presence of other vascular implants and grafts; I48.91 Unspecified atrial fibrillation; E78.5 Hyperlipidemia, unspecified; I73.9 Peripheral vascular disease, unspecified; I87.2 Venous insufficiency (chronic) (peripheral); I71.40 Abdominal aortic aneurysm, without rupture, unspecified; F17.210 Nicotine dependence, cigarettes, uncomplicated; Z79.01 Long term (current) use of anticoagulants | CPT/HCPCS: 99213 ==

== ENCOUNTER → 2024-08-28 09:30 | Outpatient (BNVA) | payer MEDICARE, SELFPAY | PROVIDERS: PCP Family Medicine; Visit Provider Thoracic Surgery (Cardiothoracic Vascular Surgery) | DX: I87.2 Venous insufficiency (chronic) (peripheral) (principal); L97.311 Non-pressure chronic ulcer of right ankle limited to breakdown of skin; E11.52 Type 2 diabetes mellitus with diabetic peripheral angiopathy with gangrene; E11.621 Type 2 diabetes mellitus with foot ulcer; L97.811 Non-pressure chronic ulcer of other part of right lower leg limited to breakdown of skin | CPT/HCPCS: 97597 ==

== ENCOUNTER → 2024-09-03 14:39 | Outpatient (BNVA) | payer MEDICARE, SELFPAY | PROVIDERS: PCP Family Medicine; Visit Provider Thoracic Surgery (Cardiothoracic Vascular Surgery) | DX: Z09 Encounter for follow-up examination after completed treatment for conditions other than malignant neoplasm (principal); Z87.2 Personal history of diseases of the skin and subcutaneous tissue | CPT/HCPCS: 99212 ==

== ENCOUNTER 2024-09-10 21:29 | Emergency (ER) | payer MEDICARE, SELFPAY ==
--- NOTE | 2024-09-10 21:36 | ECG_ITS ---
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 Measurements Intervals [place] Rate: 36 P: 0 NH: 0 QRS: -20 QRSD: 105 T: 121 QT: 532 QTc: 415 Interpretive Statements SINUS RHYTHM WITH HIGH GRADE AV BLOCK INFERIOR MYOCARDIAL INFARCTION , OF INDETERMINATE AGE [40+ ms Q WAVE AND/OR ST/T ABNORMALITY IN II/aVF] MODERATE T-WAVE ABNORMALITY, CONSIDER LATERAL ISCHEMIA [-0.1+ mV T-WAVE IN I/aVL/V5/V6] Compared to ECG 02/04/2024 13:50:48 Myocardial infarct finding now present T-wave abnormality still present Possible ischemia still present Electronically Signed On 09-11-2024 18:31:20 GRINDING ROOM SUPERVISOR by Art Mays M.D. [email or web address]
--- NOTE | 2024-09-10 21:36 | XRR_ITS ---
PROCEDURE INFORMATION: Exam: XR Chest Exam date and time: 09/10/2024 9:48 PM Age: 79 years old Clinical indication: Pain; Chest pressure; Prior surgery; Surgery date: 6+ months; Surgery type: Stents; Additional info: Bradycardia TECHNIQUE: Imaging protocol: Radiologic exam of the chest. Views: 1 view. COMPARISON: CR XR chest 2V* [id number] 03/04/2024 4:15 PM FINDINGS: Lungs: Right basilar opacities partially obscure the right hemidiaphragm. Pleural spaces: Small right pleural effusion. Heart/Mediastinum: Unremarkable. No cardiomegaly. Bones/joints: Unremarkable. Soft tissues: Transcutaneous pacing pads overlie the chest. XR/XR chest 1V portable [id number] IMPRESSION: Small right pleural effusion with adjacent relaxation atelectasis. Superimposed infection not excluded.
[2024-09-10 21:37] VITALS: PULSE 37; RESP 20; TEMP 36.4; O2SAT 93; BMI 24.3
[2024-09-10 21:42] VITALS: BP 157/47; PULSE 37; O2SAT 94
--- NOTE | 2024-09-10 21:45 | ED_ITS ---
HPI - Arrhythmia/Palpitations 2 General: Chief Complaint: Arrhythmia/Palpitations Stated Complaint: Weakness Time Seen by Provider: 09/10/24 21:30 History of Present Illness: EMS brought in patient with complaints of low heart rate, and generalized weakness. Patient's heart rate was in the 30s, EKG showed sinus rhythm with high-grade AV block. Patient denies any chest pain shortness of breath lightheaded dizziness says he feels bad all over. Started today. Patient is on rate controlling medicine with a history of A-fib with RVR and CHF. Related Data Home Medications Medication Instructions Recorded Confirmed ferrous sulfate 325 mg (65 mg 325 mg PO QAM 02/10/20 08/24/24 iron) tablet pantoprazole 40 mg tablet,delayed 40 mg PO BEDTIME 07/05/20 08/24/24 release duloxetine 20 mg capsule,delayed 20 mg PO QAM 11/29/20 08/24/24 release (Cymbalta) clopidogrel 75 mg tablet (Plavix) 75 mg PO QAM 03/09/21 08/24/24 folic acid 1 mg tablet 1 mg PO QAM 06/28/22 08/24/24 sucralfate 1 gram tablet 1 g PO QID PRN UNKNOWN 07/12/22 08/24/24 etanercept 50 mg/mL (1 mL) 50 mg SUBCUT Q7D 12/27/22 08/24/24 subcutaneous pen injector (Enbrel SureClick) lisinopril 40 mg tablet 40 mg PO QAM 02/20/23 08/24/24 gabapentin 100 mg capsule 200 mg PO TID 08/21/23 08/24/24 insulin glargine 100 unit/mL (3 20 unit SUBCUT BID 08/21/23 08/24/24 mL) subcutaneous pen (Lantus Solostar U-100 Insulin) metformin 500 mg tablet 500 mg PO BID 08/21/23 08/24/24 methotrexate sodium 2.5 mg tablet 20 mg PO Q7D 08/21/23 08/24/24 acetaminophen 500 mg tablet 500 mg PO Q6H PRN Pain 10/18/23 08/24/24 cetirizine 10 mg tablet 10 mg PO BEDTIME allergy symptoms 10/18/23 08/24/24 insulin aspart U-100 100 unit/mL See Rx Instructions .Route .COMPLEX 10/18/23 08/24/24 (3 mL) subcutaneous pen (Novolog FlexPen U-100 Insulin aspart) nitroglycerin 0.4 mg sublingual 0.4 mg sublingual Q5M PRN Chest 10/18/23 08/24/24 tablet (Nitrostat) Pain potassium chloride 10 mEq 20 meq PO QAM 10/18/23 08/24/24 capsule,extended release albuterol sulfate 90 mcg/actuation 1 puff inhalation Q4H PRN Wheezing 02/04/24 08/24/24 aerosol inhaler furosemide 40 mg tablet 40 mg PO BID 02/04/24 08/24/24 multivit,Ca,min-iron 8 mg-folic 1 tab PO QAM 02/04/24 08/24/24 acid 200 mcg-lycopene 600 mcg tablet (Centrum Men) pen needle, diabetic 32 gauge x 02/04/24 08/24/24 sennosides 8.6 mg tablet (Senokot) 17.2 mg PO BEDTIME PRN Constipation 02/04/24 08/24/24 Previous Rx's Medication Instructions Recorded tamsulosin 0.4 mg capsule 0.4 mg PO QPM #90 caps 12/15/21 sotalol 80 mg tablet 120 mg (1.5 x 80 mg) PO BID #180 06/27/23 tabs hydralazine 50 mg tablet 50 mg PO BID #180 tabs 12/17/23 isosorbide mononitrate 60 mg 60 mg PO DAILY #30 tabs 02/06/24 tablet,extended release 24 hr pentoxifylline 400 mg 400 mg PO TID #90 tabs 04/15/24 tablet,extended release hydrocodone 5 mg-acetaminophen 325 1 tab PO BID PRN pain 10 days #20 04/22/24 mg tablet tabs pravastatin 40 mg tablet See Rx Instructions .Route 08/17/24 .COMPLEX #90 tabs diltiazem HCl 120 mg 120 mg PO DAILY #90 caps 08/24/24 capsule,extended release 24 hr rivaroxaban 15 mg tablet 15 mg PO BEDTIME #90 tabs 08/24/24 Allergies Allergy/AdvReac Type Severity Reaction Status Date / Time No Known Allergies Allergy Verified 08/24/24 13:12 Review of Systems 2 General: Reports: 10 or more systems reviewed and unremarkable except in HPI and below PFSH ED 2 PFSH: Medical History Depression Postprocedural urethral stricture History of echocardiogram CHF (congestive heart failure) EF 55-60% 10/2023 Rheumatoid arthritis BPH loc w urin obs/LUTS Started on TAMSULOSIN March 2021 for chronic BPH symptoms Atrial fibrillation with RVR Patient converted to normal sinus rhythm with home dose of sotalol. Bladder cancer Low-grade noninvasive papillary urothelial carcinoma cystoscopy done in December 2020, status post intravesical mitomycin after each cystoscopy and status post induction therapy with weekly BCG intravesically from August 18, 2021 through September 22, 2021 Follow-up cystoscopy done on January 16, 2022 showed persistent/recurrence low- grade urothelial carcinoma status post fulguration followed by postop intravesical mitomycin. Proteinuria Coronary artery disease Anticoagulation adequate with anticoagulant therapy xarelto Carotid stenosis Abdominal aortic aneurysm (AAA) s/p repair COPD (chronic obstructive pulmonary disease) Tobacco abuse Peripheral arterial disease Erectile dysfunction Hypertriglyceridemia HTN (hypertension), benign Diabetic neuropathy Diabetes mellitus Surgical History History of colonoscopy History of cardiac catheterization History of left above knee amputation History of bladder surgery transurethral resection/fulguration of bladder tumor (01/04, 04/05, 08/06, 11/07, 02/06 Previous back surgery Hx of appendectomy History of carotid endarterectomy History of abdominal aortic aneurysm (AAA) repair S/P femoral-popliteal bypass surgery LLE x 2 preceding eventual AKA RLE 09/2023 S/P right coronary artery (RCA) stent placement hx of Distal RCA and Prox RCA Family History Father , in his 80's Stroke Mother , at age 83 Diabetes Social History Smoking and tobacco/nicotine status: current every day tobacco/nicotine user cigarettes Packs smoked per day: 1 Alcohol intake: never Substance/Drug Use: never Household members: spouse Marital status: service: Yes branch: [employer] Current occupational status: retired Physical Exam 2 Const: COMMON NORMALS: no acute distress, average body habitus, patient oriented x3, no limitations, healthy appearing, alert and well nourished HENMT: COMMON NORMALS: normocephalic, atraumatic, hearing grossly normal bilaterally, external ears normal, Normal external nose present and moist oral mucous membranes HEAD & SCALP: normocephalic and atraumatic NOSE: Normal external nose present EXTERNAL EAR: Yes external ears normal Neck/C-Spine: COMMON NORMALS: no JVD Chest: COMMONS NORMALS: normal inspection of the chest and normal palpation of entire chest wall Resp: COMMON NORMALS: normal respiratory effort, No retractions, No use of accessory muscles and clear to auscultation bilaterally AUSCULTATION: clear to auscultation bilaterally Cardio: COMMON NORMALS: no JVD, S1 normal heart sound present, S2 normal heart sound present, No gallops present (Cardio), No clicks present (Cardio), No murmurs present (Cardio) and No rub (Cardio); negative for regular rate (Sinus rhythm with high-grade AV block per EKG) and negative for regular rhythm RATE: abnormal rate (Sinus rhythm with high-grade AV block per EKG) RHYTHM: abnormal rhythm HEART SOUNDS: S1 normal heart sound present and S2 normal heart sound present GI: COMMON NORMALS: Normal to inspection, nondistended, normoactive bowel sounds present, Soft to palpation, non-tender, No hepatosplenomegaly present and no masses PALPATION: Yes Soft to palpation and Yes No hepatosplenomegaly present Neuro: COMMON NORMALS: patient oriented x3 SENSORIUM/ORIENTATION: Yes alert Course 2 Vital Signs: Vital signs: Vital Signs Temperature 97.5 F L 09/10/24 21:37 Pulse Rate 37 L 09/10/24 21:37 Respiratory Rate 20 H 09/10/24 21:37 Pulse Oximetry 93 09/10/24 21:37 MDM - Arrhythmia/Palpitations Medical Decision Making EKG showed sinus rhythm with high-grade AV block, it was texted to Dr. Rico, said the patient probably needs a pacemaker and we do not have the ability to perform 1 here so he suggested we transfer to a higher level care. Patient said he has been in [facility] before. We will try to transfer him to [facility]. Transfer line consulted but is through with Dr. Harshad Roach [facility] Dr. Good excepted patient in transfer. Medical Records I reviewed the patient's medical records. Lab Data I reviewed the patient's lab results. 12/26/24 21:47 09/10/24 21:47 Laboratory Results WBC 8.93 10^3/uL (3.29-11.43) 09/10/24 21:47 RBC 3.29 10^6/uL (3.85-5.65) L 09/10/24 21:47 Hgb 10.60 g/dL (11.27-16.99) L 09/10/24 21:47 Hct 32.8 % (37-53) L 09/10/24 21:47 MCV 99.7 fl (82-101) 09/10/24 21:47 MCH 32.2 pg (27-33) 09/10/24 21:47 MCHC 32.3 g/dL (30-55) 09/10/24 21:47 RDW 15.4 % (12.1-15.1) H 09/10/24 21:47 Plt Count 181 10^3/cmm (157-399) 09/10/24 21:47 MPV 10.2 fL (7.4-10.4) 09/10/24 21:47 Neut % (Auto) 64.9 % 09/10/24 21:47 Lymph % (Auto) 26.3 % 09/10/24 21:47 Sibley % (Auto) 2.4 % 09/10/24 21:47 Eos % (Auto) 5.7 % 09/10/24 21:47 Baso % (Auto) 0.4 % 09/10/24 21:47 Neut # (Auto) 5.79 10^3/uL (1.8-7.7) 09/10/24 21:47 Lymph # (Auto) 2.4 10^3/uL (0.8-4.8) 09/10/24 21:47 Sibley # (Auto) 0.2 10^3/uL (0.2-0.9) 09/10/24 21:47 Eos # (Auto) 0.5 10^3/uL (0.0-0.8) 09/10/24 21:47 Baso # (Auto) 0.0 10^3/uL (0.0-0.1) 09/10/24 21:47 Nucleated RBC % (auto) 0 % 12/26/24 21:47 Nucleated RBCs # 0.0 /100WBC 09/10/24 21:47 PT 31.00 SECONDS (12.1-14.9) H 09/10/24 21:47 INR 2.85 (0.8-1.2) H 09/10/24 21:47 All radiology interpretation(s) finalized by discharge Discharge Plan Discharge Patient Disposition: Xfer Short-Term Hosp Clinical Impression: Heart block, Symptomatic bradycardia Condition: Stable Prescriptions: No Action duloxetine [Cymbalta] 20 mg capsule,delayed release(DR/EC) 20 mg PO QAM ferrous sulfate 325 mg (65 mg iron) tablet 325 mg PO QAM pantoprazole 40 mg tablet,delayed release (DR/EC) 40 mg PO BEDTIME tamsulosin 0.4 mg capsule 0.4 mg PO QPM Qty: 90 3RF folic acid 1 mg tablet 1 mg PO QAM methotrexate sodium 2.5 mg tablet 20 mg PO Q7D Rx Instructions: 8 TABS WEEKLY ON SATURDAY sucralfate 1 gram tablet 1 g PO QID PRN (Reason: UNKNOWN) gabapentin 100 mg capsule 200 mg PO TID Enbrel SureClick 50 mg/mL (1 mL) pen injector 50 mg SUBCUT Q7D Rx Instructions: ON SAT lisinopril 40 mg tablet 40 mg PO QAM Lantus Solostar U-100 Insulin 100 unit/mL (3 mL) insulin pen 20 unit SUBCUT BID Dose Instruction: inject 40 units SUBCUTANEOUSLY IN THE EVENING pentoxifylline 400 mg tablet extended release 400 mg PO TID Qty: 90 4RF Rx Instructions: must administer with a meal/food metformin 500 mg tablet 500 mg PO BID Hold Instructions: Resume on 10/24/23. hydrocodone-acetaminophen 5-325 mg tablet 1 tab PO BID PRN (Reason: pain) 10 Days Qty: 20 0RF sotalol 80 mg tablet 120 mg PO BID Qty: 180 3RF hydralazine 50 mg tablet 50 mg PO BID Qty: 180 3RF pravastatin 40 mg tablet See Rx Instructions .ROUTE .COMPLEX Qty: 90 0RF Dose Instruction: Take 1 tablet by mouth once daily Rx Instructions: Take 1 tablet by mouth once daily rivaroxaban 15 mg tablet 15 mg PO BEDTIME Qty: 90 3RF Hold Instructions: Resume on 09/15/22. diltiazem HCl 120 mg capsule,extended release 24hr 120 mg PO DAILY Qty: 90 3RF clopidogrel [Plavix] 75 mg tablet 75 mg PO QAM Hold Instructions: Resume on 11/20/21. acetaminophen 500 mg Tablet 500 mg PO Q6H PRN (Reason: Pain) nitroglycerin [Nitrostat] 0.4 mg Tablet, Sublingual 0.4 mg SUBLINGUAL Q5M PRN (Reason: Chest Pain) Rx Instructions: do not exceed 3 doses per episode potassium chloride 10 mEq capsule, extended release 20 meq PO QAM cetirizine 10 mg tablet 10 mg PO BEDTIME insulin aspart U-100 [Novolog FlexPen U-100 Insulin] 100 unit/mL (3 mL) insulin pen See Rx Instructions .ROUTE .COMPLEX Rx Instructions: sliding scale tid furosemide 40 mg tablet 40 mg PO BID Senokot 8.6 mg Tablet 17.2 mg PO BEDTIME PRN (Reason: Constipation) Centrum Men 8 mg iron- 200 mcg-600 mcg Tablet 1 tab PO QAM (DME) pen needle, diabetic 32 gauge x 5/32 needle See Rx Instructions .Route Rx Instructions: test 4 times daily albuterol sulfate 90 mcg/actuation HFA aerosol inhaler 1 puff INHALATION Q4H PRN (Reason: Wheezing) isosorbide mononitrate 60 mg Tablet Extended Release 24 Hr 60 mg PO DAILY Qty: 30 0RF Referrals: Bree Perkins MD [Primary Care Provider] - Coding Level of Care Code ED Kiln Operator for Sarah Terrazas
[2024-09-10 21:55] LABS: Basophils % 0.4 %; Eosinophils # 0.5 10^3/uL (0.0-0.8); Eosinophils % 5.7 %; Hematocrit 32.8 % (37-53); Lymphocytes # 2.4 10^3/uL (0.8-4.8); Lymphocytes % 26.3 %; Mean Corpuscular HGB Conc 32.3 g/dL (30-55); Mean Corpuscular Hemoglobin 32.2 pg (27-33); Mean Corpuscular Volume 99.7 fl (82-101); Mean Platelet Volume 10.2 fL (7.4-10.4); Monocytes # 0.2 10^3/uL (0.2-0.9); Monocytes % 2.4 %; Neutrophils # 5.79 10^3/uL (1.8-7.7); Neutrophils % 64.9 %; Nucleated Red Blood Cells % 0 %; Platelet Count 181 10^3/cmm (157-399); Red Blood Count 3.29 10^6/uL (3.85-5.65); Red Cell Distribution Width 15.4 % (12.1-15.1); White Blood Count 8.93 10^3/uL (3.29-11.43)
[2024-09-10 22:00] VITALS: BP 133/45; PULSE 36; RESP 14; O2SAT 93
[2024-09-10 22:07] LABS: INR 2.85 (0.8-1.2)
[2024-09-10 22:12] VITALS: PULSE 35; RESP 19; O2SAT 96
[2024-09-10 22:12] LABS: Alanine Aminotransferase 20 U/L (0-41); Albumin Level 3.6 g/dL (3.5-5.2); Alkaline Phosphatase 73 U/L (40-130); Chloride 99 mmol/L (98-107); Potassium 4.7 mmol/L (3.5-5.1); Sodium 132 mmol/L (136-145)
[2024-09-10 22:15] LABS: Troponin(5th) Baseline 61 ng/L (0-15)
[2024-09-10 22:27] VITALS: BP 113/26; PULSE 35; RESP 12; O2SAT 97
[2024-09-10 22:41] LABS: Anion Gap 18.7 (5-19); Aspartate Amino Transferase 16 U/L (0-40); Blood Urea Nitrogen 50 mg/dL (8-23); Calcium 8.7 mg/dL (8.5-10.5); Carbon Dioxide 19 mmol/L (22-29); Creatinine Clr Calc Pharmacy 22.3474; Globulin 2.9 g/dL (1.3-4.6); Glucose 215 mg/dL (65-115); Magnesium 1.9 mg/dL (1.7-2.3); NT Pro B Type Natriuretic Pept 5857 pg/mL (0-450); Osmolality Calculated 294 mOsm/kg (285-295); Thyroid Stimulating Hormone 1.99 uIU/mL (0.27-4.20); Total Bilirubin 0.2 mg/dL (0.15-1.2); Total Protein 6.5 g/dL (6.6-8.7)
[2024-09-10 22:53] VITALS: BP 110/21; PULSE 35; O2SAT 92
== END 2024-09-10 22:43 | disposition short-term general hospital (02) ==
PROVIDERS: Emergency Provider Emergency Medicine; PCP Family Medicine
DX: I45.9 Conduction disorder, unspecified (principal); Z79.4 Long term (current) use of insulin; F17.210 Nicotine dependence, cigarettes, uncomplicated; Z95.5 Presence of coronary angioplasty implant and graft; E11.40 Type 2 diabetes mellitus with diabetic neuropathy, unspecified; I11.0 Hypertensive heart disease with heart failure; I50.9 Heart failure, unspecified; J44.9 Chronic obstructive pulmonary disease, unspecified; Z85.51 Personal history of malignant neoplasm of bladder
CPT/HCPCS: 36415; 71045; 80053; 83735; 83880; 84443; 84484; 85025; 85610; 93005; 99285

== ENCOUNTER → 2024-09-30 15:25 | Outpatient (BNVA) | payer MEDICARE, SELFPAY | PROVIDERS: PCP Family Medicine; Visit Provider Nurse Practitioner Family | DX: L72.0 Epidermal cyst (principal); L81.4 Other melanin hyperpigmentation; Z08 Encounter for follow-up examination after completed treatment for malignant neoplasm; Z85.828 Personal history of other malignant neoplasm of skin; L57.0 Actinic keratosis | CPT/HCPCS: 17000; 99213 ==

== ENCOUNTER → 2024-10-09 09:44 | Outpatient (BNVA) | payer BC, MEDICARE, SELFPAY | PROVIDERS: PCP Family Medicine; Visit Provider Internal Medicine | DX: I50.33 Acute on chronic diastolic (congestive) heart failure (principal); I73.9 Peripheral vascular disease, unspecified; E11.65 Type 2 diabetes mellitus with hyperglycemia; Z79.4 Long term (current) use of insulin; I10 Essential (primary) hypertension; I25.10 Atherosclerotic heart disease of native coronary artery without angina pectoris; I48.91 Unspecified atrial fibrillation; R00.2 Palpitations | CPT/HCPCS: 80048; 83880 ==

== ENCOUNTER 2024-12-17 07:58 | Outpatient (CLI) | payer MEDICARE, BC, SELFPAY ==
--- NOTE | 2024-12-17 08:03 | XR_ITS ---
WS: [id number] XR chest 2V* [id number] REASON FOR EXAM: EDEMA/SHORTNESS OF BREATH FINDINGS: Cardiomegaly with coronary artery stent Compared to the examination of 09/10/2024, there appears to be an increased amount of right pleural fluid. There continues to be interstitial reticular lung opacities and peribronchial cuffing in the lower lung cisneros predominating on the right. In part these are chronic changes (chronic subpleural interstitial changes demonstrated on CT of the chest 02/04/2024.) No other interval change or new finding. XR/XR chest 2V* [id number] IMPRESSION: Continued right pleural effusion with probable increase in volume compared to t he previous examination. Diffuse lung abnormality relatively stable, chronic in part.
== END 2024-12-17 07:59 | disposition home or self-care (01) ==
LOC: RAD 08:00
PROVIDERS: PCP Family Medicine; Visit Provider Nurse Practitioner Family
DX: R60.0 Localized edema (principal); R06.02 Shortness of breath; J90 Pleural effusion, not elsewhere classified; R91.8 Other nonspecific abnormal finding of lung field; I51.7 Cardiomegaly
CPT/HCPCS: 71046

== ENCOUNTER 2024-12-24 13:21 | Outpatient (CLI) | payer MEDICARE, BC, SELFPAY ==
--- NOTE | 2024-12-24 13:32 | XR_ITS ---
WS: [id number] Exam: XR chest 2V* [id number] Date/Time of Exam: 12/24/2024 1:37 PM Reason For Exam: LOCALIZED EDEMA/SHORTNESS OF BREATH Comparison 12/17/2024. Right-sided pleural effusion is unchanged. Mild cardiac enlargement. LEFT lung is clear. No pneumothorax. The mediastinum is normal in contour. Bony structures are intact. XR/XR chest 2V* [id number] IMPRESSION: 1. RIGHT pleural effusion unchanged. 2. Mild cardiac enlargement stable.
== END 2024-12-24 13:22 | disposition home or self-care (01) ==
PROVIDERS: PCP Family Medicine; Visit Provider Family Medicine
DX: J90 Pleural effusion, not elsewhere classified (principal); I51.7 Cardiomegaly
CPT/HCPCS: 71046

== ENCOUNTER → 2025-01-18 12:22 | Outpatient (BNVA) | payer MEDICARE, BC, SELFPAY | PROVIDERS: PCP Family Medicine; Visit Provider Internal Medicine | DX: I48.91 Unspecified atrial fibrillation (principal); Z79.01 Long term (current) use of anticoagulants; I11.0 Hypertensive heart disease with heart failure; I50.9 Heart failure, unspecified; I73.9 Peripheral vascular disease, unspecified; E11.65 Type 2 diabetes mellitus with hyperglycemia; Z79.4 Long term (current) use of insulin; Z79.84 Long term (current) use of oral hypoglycemic drugs; I25.10 Atherosclerotic heart disease of native coronary artery without angina pectoris; Z95.5 Presence of coronary angioplasty implant and graft; F17.210 Nicotine dependence, cigarettes, uncomplicated | CPT/HCPCS: 99214 ==

== ENCOUNTER 2025-02-17 16:49 | Outpatient (CLI) | payer MEDICARE, BC, SELFPAY ==
--- NOTE | 2025-02-17 16:59 | XRR_ITS ---
PROCEDURE INFORMATION: Exam: XR Chest Exam date and time: 02/17/2025 5:04 PM Age: 79 years old Clinical indication: Shortness of breath; Prior surgery; Surgery date: <1 month; Surgery type: Pacemaker, stents TECHNIQUE: Imaging protocol: Radiologic exam of the chest. Views: 2 views. COMPARISON: CR XR chest 2V* [id number] 12/24/2024 1:40 PM FINDINGS: Tubes, catheters and devices: Pacemaker overlying left chest wall obscuring underlying lung. Lungs: Right lung base atelectasis/infiltrate. Bilateral interstitial and patchy alveolar lung infiltrates. Pleural spaces: Moderate right pleural effusion. Heart/Mediastinum: Difficult to assess cardiac size due to silhouetting of the right heart border. Bones/joints: No acute bony abnormality. XR/XR chest 2V* [id number] IMPRESSION: Findings compatible with pulmonary vascular congestion. Right pleural effusion with adjacent atelectasis/infiltrate. Infection cannot be excluded. Recommend clinical correlation.
== END 2025-02-17 16:50 | disposition home or self-care (01) ==
PROVIDERS: PCP Family Medicine; Visit Provider Nurse Practitioner Family
DX: J90 Pleural effusion, not elsewhere classified (principal); R06.02 Shortness of breath; J44.1 Chronic obstructive pulmonary disease with (acute) exacerbation; R06.01 Orthopnea; R91.8 Other nonspecific abnormal finding of lung field; Z96.89 Presence of other specified functional implants
CPT/HCPCS: 71046

== ENCOUNTER 2025-02-25 23:41 | Inpatient (IN) | payer MEDICARE, BC, SELFPAY ==
--- NOTE | 2025-02-25 23:46 | ECG_ITS ---
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 Measurements Intervals [place] Rate: 92 P: 0 [place]: 0 QRS: -76 QRSD: 185 T: 106 QT: 420 QTc: 521 Interpretive Statements ELECTRONIC VENTRICULAR PACEMAKER Compared to ECG 09/10/2024 21:31:40 Sinus rhythm no longer present Myocardial infarct finding no longer present T-wave abnormality no longer present Possible ischemia no longer present Electronically Signed On 02-26-2025 14:50:22 CDT by Art Mays M.D. [email or web address]
[2025-02-25 23:47] VITALS: BP 152/57; PULSE 95; RESP 16; TEMP 37.6; O2SAT 84; BMI 22.8
[2025-02-26] VITALS (13 sets, daily range): BP systolic 116–150; BP diastolic 53–69; PULSE 91–102; RESP 16–20; TEMP 36.5–36.8; O2SAT 86–94; BMI 25.6
--- NOTE | 2025-02-26 00:31 | W.ED.SOB ---
HPI - SOB/Dyspnea General: Chief Complaint: Shortness of Breath/Dyspnea Stated Complaint: SOB Time Seen by Provider: 02/25/25 23:44 History of Present Illness: HPI Narrative: Patient is an elderly male presenting to the ED with complaint of worsening shortness of breath. He reports dyspnea has been present intermittently for approximately two months but has acutely worsened tonight. Patient states he is unable to lay flat and has been sleeping in a chair due to orthopnea. reports patient fell tonight while attempting to get from bed to chair to alleviate breathing difficulty. Patient has a scheduled procedure on Saturday (in 3 days) for thoracentesis to drain pleural effusion. Medical history is significant for heart failure on chronic Lasix therapy, diabetes mellitus, cardiac arrhythmia status post ablation (2 weeks ago) and pacemaker placement (January 26, 2025), and left above-knee amputation due to peripheral arterial disease. reports patient was recently treated for pneumonia by PCP with antibiotics and was prescribed CPAP, though neither intervention provided significant relief. Patient is currently on Plavix and Xarelto, which he was instructed to discontinue 5-7 days prior to his scheduled thoracentesis. also notes some recent weight gain and significant leg edema in the remaining leg. Related Data Home Medications ?Medication ?Instructions ?Recorded ?Confirmed ferrous sulfate 325 mg (65 mg 325 mg PO QAM 02/10/20 02/25/25 iron) tablet pantoprazole 40 mg tablet,delayed 40 mg PO BEDTIME 07/05/20 02/25/25 release duloxetine 20 mg capsule,delayed 20 mg PO QAM 11/29/20 02/25/25 release (Cymbalta) clopidogrel 75 mg tablet (Plavix) 75 mg PO QAM 03/09/21 02/25/25 folic acid 1 mg tablet 1 mg PO QAM 06/28/22 02/25/25 sucralfate 1 gram tablet 1 g PO QID PRN UNKNOWN 07/12/22 02/25/25 etanercept 50 mg/mL (1 mL) 50 mg SUBCUT Q7D 12/27/22 02/25/25 subcutaneous pen injector (Enbrel SureClick) lisinopril 40 mg tablet 40 mg PO QAM 02/20/23 02/25/25 gabapentin 100 mg capsule 200 mg PO TID 08/21/23 02/25/25 insulin glargine 100 unit/mL (3 20 unit SUBCUT BID 08/21/23 02/25/25 mL) subcutaneous pen (Lantus Solostar U-100 Insulin) metformin 500 mg tablet 500 mg PO BID 08/21/23 02/25/25 methotrexate sodium 2.5 mg tablet 10 mg PO Q7D 08/21/23 02/25/25 acetaminophen 500 mg tablet 500 mg PO Q6H PRN Pain 10/18/23 02/25/25 cetirizine 10 mg tablet 10 mg PO BEDTIME allergy symptoms 10/18/23 02/25/25 insulin aspart U-100 100 unit/mL See Rx Instructions .Route .COMPLEX 10/18/23 02/25/25 (3 mL) subcutaneous pen (Novolog FlexPen U-100 Insulin aspart) nitroglycerin 0.4 mg sublingual 0.4 mg sublingual Q5M PRN Chest 10/18/23 02/25/25 tablet (Nitrostat) Pain potassium chloride 10 mEq 20 meq PO QAM 10/18/23 02/25/25 capsule,extended release multivit,Ca,min-iron 8 mg-folic 1 tab PO QAM 02/04/24 02/25/25 acid 200 mcg-lycopene 600 mcg tablet (Centrum Men) pen needle, diabetic 32 gauge x 02/04/24 08/24/24 5/32 sennosides 8.6 mg tablet (Senokot) 17.2 mg PO BEDTIME PRN Constipation 02/04/24 02/25/25 rivaroxaban 20 mg tablet (Xarelto) 20 mg PO BEDTIME 12/23/24 02/25/25 metoprolol succinate 50 mg 50 mg PO DAILY 02/25/25 02/25/25 tablet,extended release 24 hr pravastatin 40 mg tablet 40 mg PO DAILY 02/25/25 02/25/25 Previous Rx's ?Medication ?Instructions ?Recorded tamsulosin 0.4 mg capsule 0.4 mg PO QPM #90 caps 12/15/21 isosorbide mononitrate 60 mg 60 mg PO DAILY #30 tabs 02/06/24 tablet,extended release 24 hr furosemide 40 mg tablet 40 mg PO BID #180 tabs 10/16/24 hydralazine 50 mg tablet 50 mg PO TID #270 tabs 01/18/25 Allergies Allergy/AdvReac Type Severity Reaction Status Date / Time No Known Allergies Allergy Verified 02/26/25 03:09 Review of Systems General: Reports: 10 or more systems reviewed and unremarkable except in HPI and below PFSH ED PFSH: Medical History Depression Postprocedural urethral stricture History of echocardiogram CHF (congestive heart failure) EF 55-60% 10/2023 Rheumatoid arthritis BPH loc w urin obs/LUTS Started on TAMSULOSIN March 2021 for chronic BPH symptoms Atrial fibrillation with RVR Patient converted to normal sinus rhythm with home dose of sotalol. Bladder cancer Low-grade noninvasive papillary urothelial carcinoma cystoscopy done in December 2020, status post intravesical mitomycin after each cystoscopy and status post induction therapy with weekly BCG intravesically from August 18, 2021 through September 22, 2021 Follow-up cystoscopy done on January 16, 2022 showed persistent/recurrence low-grade urothelial carcinoma status post fulguration followed by postop intravesical mitomycin. Proteinuria Coronary artery disease Anticoagulation adequate with anticoagulant therapy xarelto Carotid stenosis Abdominal aortic aneurysm (AAA) s/p repair COPD (chronic obstructive pulmonary disease) Tobacco abuse Peripheral arterial disease Erectile dysfunction Hypertriglyceridemia HTN (hypertension), benign Diabetic neuropathy Diabetes mellitus Surgical History History of colonoscopy History of cardiac catheterization History of left above knee amputation History of bladder surgery transurethral resection/fulguration of bladder tumor (01/04, 04/05, 08/06, 11/07, 02/06 Previous back surgery Hx of appendectomy History of carotid endarterectomy History of abdominal aortic aneurysm (AAA) repair S/P femoral-popliteal bypass surgery LLE x 2 preceding eventual AKA RLE 09/2023 S/P right coronary artery (RCA) stent placement hx of Distal RCA and Prox RCA Family History Father , in his 80's Stroke Mother , at age 83 Diabetes Social History Smoking and tobacco/nicotine status: current every day tobacco/nicotine user cigarettes Packs smoked per day: 1 Alcohol intake: never Substance/Drug Use: never Household members: spouse Marital status: service: Yes branch: [employer] Current occupational status: retired Physical Exam Const: COMMON NORMALS: no acute distress, patient oriented x3, alert and well nourished HENMT: COMMON NORMALS: normocephalic HEAD & SCALP: normocephalic Eye: COMMON NORMALS: Equal, round and reactive pupils present, EOMs intact bilaterally and conjunctivae normal CONJUNCTIVA: Yes conjunctivae normal PUPIL: Yes Equal, round and reactive pupils present Neck/C-Spine: COMMON NORMALS: no JVD Chest: COMMONS NORMALS: normal inspection of the chest and normal palpation of entire chest wall Resp: COMMON NORMALS: normal respiratory effort, No retractions, No use of accessory muscles, clear to auscultation bilaterally and percussion normal AUSCULTATION: clear to auscultation bilaterally PERCUSSION: percussion normal Cardio: COMMON NORMALS: no JVD GI: COMMON NORMALS: Normal to inspection, nondistended, normoactive bowel sounds present, Soft to palpation, non-tender, No hepatosplenomegaly present, no masses and no bruits PALPATION: Yes Soft to palpation and Yes No hepatosplenomegaly present Extremity: COMMON NORMALS: capillary refill normal, no clubbing, cyanosis or edema and no calf tenderness; negative for no pedal edema (Pedal edema present - left AKA present) Neuro: COMMON NORMALS: patient oriented x3 SENSORIUM/ORIENTATION: Yes alert Skin: COMMON NORMALS: no jaundice Course Vital Signs: Vital signs: Vital Signs Temperature 99.7 F H 02/25/25 23:47 Pulse Rate 101 H 02/26/25 03:02 Respiratory Rate 16 02/25/25 23:47 Blood Pressure 125/69 02/26/25 03:02 Pulse Oximetry 91 02/26/25 03:02 Oxygen Delivery Me thod Nasal Cannula 02/26/25 00:52 Oxygen Flow Rate 3 02/26/25 00:52 MDM - SOB/Dyspnea Medical Decision Making 1. Acute on chronic heart failure exacerbation with pleural effusion - Administer IV Lasix for diuresis - Obtain chest X-ray to assess pleural effusion and pulmonary edema - Check BNP levels - Monitor I/O carefully - Anticipate hospital admission for management 2. Recent fall - Assess for injuries - Implement fall precautions during hospitalization 3. Diabetes mellitus - Check blood glucose levels - Continue home medications with appropriate adjustments during diuresis 4. Status post pacemaker placement (January 26, 2025) and recent ablation - Review recent cardiac studies - Cardiology consultation recommended 5. Anticoagulation management (Plavix and Xarelto) - Note patient has discontinued for scheduled thoracentesis - Will need to coordinate with procedural team regarding timing of thoracentesis given current admission 6. Possible pneumonia - Review recent antibiotic therapy and response - Consider sputum culture if indicated by imaging Discussed plan with patient and . Patient will likely require hospital admission for management of heart failure exacerbation. Will coordinate with cardiology and pulmonology regarding management of pleural effusion and timing of thoracentesis. Lab Data 02/26/25 00:50 02/26/25 00:50 Labs/Radiology: Radiology Impressions Chest X-Ray 02/26/25 00:32 IMPRESSION: 1. Increased interstitial opacities in the bilateral lower lobes may represent interstitial edema. 2. Stable moderate right-sided pleural effusion. Laboratory Results WBC 4.83 10^3/uL (3.29-11.43) 02/26/25 00:50 RBC 2.39 10^6/uL (3.85-5.65) L 02/26/25 00:50 Hgb 8.00 g/dL (11.27-16.99) L 02/26/25 00:50 Hct 25.5 % (37-53) L 02/26/25 00:50 MCV 106.7 fl (82-101) H 02/26/25 00:50 MCH 33.5 pg (27-33) H 02/26/25 00:50 MCHC 31.4 g/dL (30-55) 02/26/25 00:50 RDW 20.7 % (12.1-15.1) H 02/26/25 00:50 Plt Count 273 10^3/cmm (157-399) 02/26/25 00:50 MPV 10.9 fL (7.4-10.4) H 02/26/25 00:50 Neut % (Auto) 73.4 % 02/26/25 00:50 Lymph % (Auto) 14.9 % 02/26/25 00:50 Guthrie % (Auto) 6.2 % 02/26/25 00:50 Eos % (Auto) 3.7 % 02/26/25 00:50 Baso % (Auto) 0.6 % 02/26/25 00:50 Neut # (Auto) 3.54 10^3/uL (1.8-7.7) 02/26/25 00:50 Lymph # (Auto) 0.7 10^3/uL (0.8-4.8) L 02/26/25 00:50 Guthrie # (Auto) 0.3 10^3/uL (0.2-0.9) 02/26/25 00:50 Eos # (Auto) 0.2 10^3/uL (0.0-0.8) 02/26/25 00:50 Baso # (Auto) 0.0 10^3/uL (0.0-0.1) 02/26/25 00:50 Nucleated RBC % (auto) 0 % 02/26/25 00:50 Nucleated RBCs # 0.0 /100WBC 02/26/25 00:50 Sodium 136 mmol/L (136-145) 02/26/25 00:50 Potassium 4.6 mmol/L (3.5-5.1) 02/26/25 00:50 Chloride 99 mmol/L (98-107) 02/26/25 00:50 Carbon Dioxide 21 mmol/L (22-29) L 02/26/25 00:50 Anion Gap 20.6 (5-19) H 02/26/25 00:50 BUN 30 mg/dL (8-23) H 02/26/25 00:50 Creatinine 1.5 mg/dL (0.7-1.2) H 02/26/25 00:50 GFR Calculation Not Reportable 02/26/25 00:50 Glucose 178 mg/dL (65-115) H 02/26/25 00:50 Calculated Osmolality 293 mOsm/kg (285-295) 02/26/25 00:50 Calcium 8.2 mg/dL (8.5-10.5) L 02/26/25 00:50 Troponin T Baseline 71 ng/L (0-15) H 02/26/25 00:50 NT-Pro-B Natriuret Pep 9737 pg/mL (0-450) H 02/26/25 00:50 XR interpretation done by ED provider, pending radiology final review ED provider radiology interpretation(s): Pleural effusion and concerns of heart failure EKG Data EKG 1: Pacemaker function: normal pacer function Discharge Plan Discharge Patient Disposition: Admitted As Inpatient Clinical Impression: CHF (congestive heart failure), Acute hypoxemic respiratory failure, Pleural effusion Condition: Stable Coding Level of Care Code ED Professor Of Psychology for Sarah Terrazas
--- NOTE | 2025-02-26 00:32 | XRR_ITS ---
PROCEDURE INFORMATION: Exam: XR Chest Exam date and time: 02/26/2025 12:34 AM Age: 79 years old Clinical indication: Dyspnea; Prior surgery; Surgery date: 1-6 months; Surgery type: Pacer 01/26; Additional info: SOB TECHNIQUE: Imaging protocol: Radiologic exam of the chest. Views: 1 view. COMPARISON: CR XR chest 2V* [id number] 02/17/2025 5:04 PM FINDINGS: Tubes, catheters and devices: Left chest wall pacemaker with the lead in the right ventricle. Lungs: Increased interstitial opacities in the bilateral lower lobes may represent interstitial edema. Pleural spaces: Stable moderate right-sided pleural effusion. No pneumothorax. Heart/Mediastinum: Unremarkable. No cardiomegaly. Vasculature: Aortic calcification. Bones/joints: Unremarkable. XR/XR chest 1V portable [id number] IMPRESSION: 1. Increased interstitial opacities in the bilateral lower lobes may represent interstitial edema. 2. Stable moderate right-sided pleural effusion.
[2025-02-26] MEDS: FUROsemide 10 mg/mL SDV 10mL 80 MG IVP (00:52)
[2025-02-26 00:57] LABS: Basophils % 0.6 %; Eosinophils # 0.2 10^3/uL (0.0-0.8); Eosinophils % 3.7 %; Hematocrit 25.5 % (37-53); Lymphocytes # 0.7 10^3/uL (0.8-4.8); Lymphocytes % 14.9 %; Mean Corpuscular HGB Conc 31.4 g/dL (30-55); Mean Corpuscular Hemoglobin 33.5 pg (27-33); Mean Corpuscular Volume 106.7 fl (82-101); Mean Platelet Volume 10.9 fL (7.4-10.4); Monocytes # 0.3 10^3/uL (0.2-0.9); Monocytes % 6.2 %; Neutrophils # 3.54 10^3/uL (1.8-7.7); Neutrophils % 73.4 %; Nucleated Red Blood Cells % 0 %; Platelet Count 273 10^3/cmm (157-399); Red Blood Count 2.39 10^6/uL (3.85-5.65); Red Cell Distribution Width 20.7 % (12.1-15.1); White Blood Count 4.83 10^3/uL (3.29-11.43)
[2025-02-26 01:24] LABS: Troponin(5th) Baseline 71 ng/L (0-15)
[2025-02-26 01:42] LABS: Anion Gap 20.6 (5-19); Blood Urea Nitrogen 30 mg/dL (8-23); Calcium 8.2 mg/dL (8.5-10.5); Carbon Dioxide 21 mmol/L (22-29); Chloride 99 mmol/L (98-107); Glucose 178 mg/dL (65-115); NT Pro B Type Natriuretic Pept 9737 pg/mL (0-450); Osmolality Calculated 293 mOsm/kg (285-295); Potassium 4.6 mmol/L (3.5-5.1); Sodium 136 mmol/L (136-145)
--- NOTE | 2025-02-26 03:27 | ECG_ITS ---
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 Measurements Intervals [place] Rate: 101 P: -82 AR: 183 QRS: -80 QRSD: 189 T: 103 QT: 433 QTc: 561 Interpretive Statements ELECTRONIC VENTRICULAR PACEMAKER Compared to ECG 02/25/2025 23:46:05 No significant changes Electronically Signed On 02-26-2025 15:02:50 CDT by Art Mays M.D. [email or web address]
[2025-02-26 03:28] LABS: Troponin 5 2HR 80.36 ng/L (0-15); Troponin 5 2HR Delta 9.36 ABS# (0-10)
--- NOTE | 2025-02-26 03:41 | PM.HP ---
Providers/Chief Complaint Admitting Physician: Ayan Covarrubias MD Primary Care Provider: Bree Perkins MD Chief Complaint: SOB History of Present Illness Ashvin Hickey is a 79 year old male with coronary artery disease, peripheral vascular disease, COPD, atrial fibrillation status post ablation 02/09/2025 and pacemaker 01/26/2025, diabetes, ongoing tobacco use comes in with acute CHF exacerbation. He has orthopnea, dyspnea on exertion right leg swelling and abdominal swelling. He was started on 80 mg IV furosemide and referred for admission by Dr. Gardner Patient states he cannot breathe when he lays flat at night for the last 2 months. He has had increasing weight gain as noted by his . They have increased his furosemide to 40 mg twice a day at home and though he pees more he has not had significant improvement in his breathing. Patient states he does not salt food at the table but it is salted when they cook. They have been holding his blood thinners for 5 days in preparation for Saturday ultrasound-guided thoracentesis. She reports iron deficiency anemia but last colonoscopy 5 years ago or so was negative. He has had bladder cancer treated with bladder scraping and TURBT but has not had ongoing hematuria. They have not noted bleeding from any other source. Review of Systems Narrative: General weight has been increased with water weight gain patient denies fevers chills night sweats but he does tend to be cold all the time and they attribute that to anemia. Cardiovascular no chest pain palpitations he does have leg edema in the right leg Respiratory positive for dyspnea on exertion orthopnea coughing wheezing GI no nausea vomiting diarrhea constipation positive for hesitancy and nocturia denies dysuria hematuria Neuro no seizure strokes Malignancy history positive for bladder tumor Hematologic positive for chronic anemia Medications/Allergies Home Medications ?Medication ?Instructions ?Recorded ?Confirmed ?Last Taken ?Type ferrous sulfate 325 mg (65 mg 325 mg PO QAM 02/10/20 02/25/25 02/25/25 History iron) tablet pantoprazole 40 mg tablet,delayed 40 mg PO BEDTIME 07/05/20 02/25/25 02/25/25 History release duloxetine 20 mg capsule,delayed 20 mg PO QAM 11/29/20 02/25/25 02/25/25 History release (Cymbalta) clopidogrel 75 mg tablet (Plavix) 75 mg PO QAM 03/09/21 02/25/25 02/22/25 History tamsulosin 0.4 mg capsule 0.4 mg PO QPM #90 caps 12/15/21 02/25/25 02/25/25 Rx folic acid 1 mg tablet 1 mg PO QAM 06/28/22 02/25/25 02/25/25 History sucralfate 1 gram tablet 1 g PO QID PRN UNKNOWN 07/12/22 02/25/25 09/12/22 20:00 History etanercept 50 mg/mL (1 mL) 50 mg SUBCUT Q7D 12/27/22 02/25/25 02/21/25 History subcutaneous pen injector (Enbrel SureClick) lisinopril 40 mg tablet 40 mg PO QAM 02/20/23 02/25/25 02/25/25 History gabapentin 100 mg capsule 200 mg PO TID 08/21/23 02/25/25 02/25/25 History insulin glargine 100 unit/mL (3 20 unit SUBCUT BID 08/21/23 02/25/25 02/25/25 History mL) subcutaneous pen (Lantus Solostar U-100 Insulin) metformin 500 mg tablet 500 mg PO BID 08/21/23 02/25/25 02/25/25 History methotrexate sodium 2.5 mg tablet 10 mg PO Q7D 08/21/23 02/25/25 02/25/25 History acetaminophen 500 mg tablet 500 mg PO Q6H PRN Pain 10/18/23 02/25/25 Unknown History cetirizine 10 mg tablet 10 mg PO BEDTIME allergy symptoms 10/18/23 02/25/25 02/25/25 History insulin aspart U-100 100 unit/mL See Rx Instructions .Route .COMPLEX 10/18/23 02/25/25 02/25/25 History (3 mL) subcutaneous pen (Novolog FlexPen U-100 Insulin aspart) nitroglycerin 0.4 mg sublingual 0.4 mg sublingual Q5M PRN Chest 10/18/23 02/25/25 Unknown History tablet (Nitrostat) Pain potassium chloride 10 mEq 20 meq PO QAM 10/18/23 02/25/25 02/25/25 History capsule,extended release multivit,Ca,min-iron 8 mg-folic 1 tab PO QAM 02/04/24 02/25/25 02/25/25 History acid 200 mcg-lycopene 600 mcg tablet (Centrum Men) pen needle, diabetic 32 gauge x 02/04/24 08/24/24 Unknown History sennosides 8.6 mg tablet (Senokot) 17.2 mg PO BEDTIME PRN Constipation 02/04/24 02/25/25 Unknown History isosorbide mononitrate 60 mg 60 mg PO DAILY #30 tabs 02/06/24 02/25/25 02/25/25 Rx tablet,extended release 24 hr furosemide 40 mg tablet 40 mg PO BID #180 tabs 10/16/24 02/25/25 02/25/25 Rx rivaroxaban 20 mg tablet (Xarelto) 20 mg PO BEDTIME 12/23/24 02/25/25 02/22/25 History hydralazine 50 mg tablet 50 mg PO TID #270 tabs 01/18/25 02/25/25 02/25/25 Rx metoprolol succinate 50 mg 50 mg PO DAILY 02/25/25 02/25/25 02/25/25 History tablet,extended release 24 hr pravastatin 40 mg tablet 40 mg PO DAILY 02/25/25 02/25/25 02/25/25 History Allergies Allergy/AdvReac Type Severity Reaction Status Date / Time No Known Allergies Allergy Verified 02/26/25 03:09 PFSH Acute PFSH: Medical History (Updated 02/26/25 @ 03:28 by Ayan Covarrubias MD) Iron deficiency anemia Depression Postprocedural urethral stricture History of echocardiogram CHF (congestive heart failure) EF 55-60% 10/2023 Rheumatoid arthritis BPH loc w urin obs/LUTS Started on TAMSULOSIN March 2021 for chronic BPH symptoms Atrial fibrillation with RVR Patient converted to normal sinus rhythm with home dose of sotalol. Bladder cancer Low-grade noninvasive papillary urothelial carcinoma cystoscopy done in December 2020, status post intravesical mitomycin after each cystoscopy and status post induction therapy with weekly BCG intravesically from August 18, 2021 through September 22, 2021 Follow-up cystoscopy done on January 16, 2022 showed persistent/recurrence low-grade urothelial carcinoma status post fulguration followed by postop intravesical mitomycin. Proteinuria Coronary artery disease Anticoagulation adequate with anticoagulant therapy xarelto Carotid stenosis Abdominal aortic aneurysm (AAA) s/p repair COPD (chronic obstructive pulmonary disease) Tobacco abuse Peripheral arterial disease Erectile dysfunction Hypertriglyceridemia HTN (hypertension), benign Diabetic neuropathy Diabetes mellitus Surgical History History of colonoscopy History of cardiac catheterization History of left above knee amputation History of bladder surgery transurethral resection/fulguration of bladder tumor (01/04, 04/05, 08/06, 11/07, 02/06 Previous back surgery Hx of appendectomy History of carotid endarterectomy History of abdominal aortic aneurysm (AAA) repair S/P femoral-popliteal bypass surgery LLE x 2 preceding eventual AKA RLE 09/2023 S/P right coronary artery (RCA) stent placement hx of Distal RCA and Prox RCA Family History Father , in his 80's Stroke Mother , at age 83 Diabetes Social History (Updated 02/26/25 @ 03:46 by Ayan Covarrubias MD) Smoking and tobacco/nicotine status: current every day tobacco/nicotine user cigarettes Packs smoked per day: 1 Alcohol intake: former Year of sobriety/quit date alcohol: 2019 Former alcohol use details: Quit 5 years ago Substance/Drug Use: never Additional social history: 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 He wants full code as discussed 02/26/2025 with Ayan Covarrubias MD and his Amanda Household members: spouse Marital status: service: Yes branch: [employer] Current occupational status: retired Previous occupational history: Retired 2004 from [employer] Vitals/I&O/Wt Last Vital Signs Temp 99.7 F H 02/25/25 23:47 Pulse 101 H 02/26/25 03:02 Resp 16 02/25/25 23:47 BP 125/69 02/26/25 03:02 Pulse Ox 91 02/26/25 03:02 O2 Del Method Nasal Cannula 02/26/25 00:52 O2 Flow Rate 3 02/26/25 00:52 02/25/25 02/25/25 02/26/25 14:59 22:59 06:59 Intake Total 0 / 0 Balance 0 / 0 Weight last 48 hrs Weight 68.039 kg Physical Exam Narrative: General well-developed chronically ill-appearing male in no acute cardiac distress but he is tachypneic mildly CV borderline tachycardic regular rhythm no loud murmur Lungs poor air movement with inspiratory and expiratory wheezes and a prolonged x-ray phase crackles heard in the left base and diminished breath sounds in the right base Abdomen positive bowel sounds soft nontender he has a diastases ventral hernia Right calf 2+ edema he has a left BKA no sore right foot with shoe removed no sores Oral Mallampati 3 Mentation alert and oriented x 3 pleasant Data 02/26/25 00:50 02/26/25 00:50 A&P Assessment and plan (1) Acute hypoxemic respiratory failure: Patient will be supported with oxygen for sats greater than 90%. Check venous blood gas in the morning consider BiPAP Patient will be diuresed with IV furosemide 40 mg twice a day Zaroxolyn 5 mg daily and spironolactone 25 mg twice a day. Monitor renal function (2) Acute on chronic heart failure with preserved ejection fraction: As above last EF 55 to 60% (3) Pleural effusion: Diurese as above. If need to proceed with thoracentesis will hold his rivaroxaban for 48 hours. Hold rivaroxaban for now and cover with subcu heparin (4) Nicotine dependence, cigarettes, with other nicotine-induced disorders: Start nicotine patch 21 mg daily. Patient was counseled regarding need for smoking cessation he has severe vascular disease. We also counseled that nicotine replacement still causes vascular disease so need to wean off the nicotine as well (5) Rheumatoid arthritis: Continue methotrexate and home Enbrel (6) High risk medication use: Rheumatoid arthritis medications noted (7) History of left above knee amputation: No stump ischemia found on exam (8) S/P right coronary artery (RCA) stent placement: Patient counseled regarding need for smoking cessation. Continue Plavix (9) Diabetes mellitus: Start sliding scale insulin and continue home Lantus 20 units twice a day. Start 1500-calorie ADA diet (10) Iron deficiency anemia: Patient reports iron deficiency. Will check iron studies (11) Bladder cancer: Will obtain urinalysis (12) Atrial fibrillation: Hold rivaroxaban for now (13) BPH loc w urin obs/LUTS: Continue tamsulosin (14) Carotid stenosis, bilateral: Patient counseled regarding smoking cessation PDMP PDMP Reviewed: Not Reviewed Attestations Medical Necessity Statement*: Patient readmitted the hospital with diuresis and possible thoracentesis and hospitalization expected to span greater than 2 midnights Coding Level of Care Code 56935 Diagnoses Acute hypoxemic respiratory failure J96.01 Acute on chronic heart failure with preserved ejection fraction I50.33 Pleural effusion J90 Nicotine dependence, cigarettes, with other nicotine-induced disorders F17.218 Rheumatoid arthritis M06.9 High risk medication use Z79.899 History of left above knee amputation Z89.612 S/P right coronary artery (RCA) stent placement Z95.5 Type 2 diabetes mellitus with hyperglycemia, with long-term current use of insulin E11.65; Z79.4 Diabetes mellitus type: type 2 Diabetes mellitus long winder tender insulin use: with detention use Diabetes mellitus complication status: with hyperglycemia Iron deficiency anemia D50.9 Malignant neoplasm of overlapping sites of bladder C67.8 Bladder location: overlapping sites Atrial fibrillation I48.91 BPH loc w urin obs/LUTS N40.1 Carotid stenosis, bilateral I65.23 Time Spent (min) 70
[2025-02-26] MEDS: heparin 5,000 unit/mL INJ 1 mL 5000 UNIT SUBCUT ×2 (04:53→16:27)
[2025-02-26] MEDS: FUROsemide 10 mg/mL SDV 4mL 40 MG IVP ×2 (04:53→16:26)
[2025-02-26] MEDS: acetaminophen 325 mg Tablet 650 MG PO (05:06)
[2025-02-26] MEDS: folic acid 1 mg Tablet PO (05:06)
[2025-02-26] MEDS: multivitamin therapeutic Tablet 1 TAB PO (05:06)
[2025-02-26] MEDS: ferrous sulfate EC 325 mg Tablet PO (05:06)
[2025-02-26] MEDS: duloxetine 20 mg Capsule PO (05:06)
[2025-02-26 05:18] LABS: Iron 34 ug/dL (59-158); Percent Saturation 15.4 % (20-50); Total Iron Binding Capacity 220 mcg/dl; Unsaturated Iron Binding 186 ug/dL (112-347)
--- NOTE | 2025-02-26 06:16 | ECG_ITS ---
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 Measurements Intervals [place] Rate: 95 P: 0 MA: 0 QRS: -76 QRSD: 193 T: 108 QT: 447 QTc: 563 Interpretive Statements ELECTRONIC VENTRICULAR PACEMAKER Compared to ECG 02/26/2025 03:27:36 No significant changes Electronically Signed On 02-26-2025 15:02:35 CDT by Art Mays M.D. [email or web address]
[2025-02-26 06:22] LABS: Base Excess VBG 3.1 mmol/L (-3.0-3.0); Blood Gas Sample Type Venous; HCO3 VBG 27.4 mmol/L (24-28); Oxygen Device NC; PCO2 VBG 39.6 mmHg (41-51); PO2 VBG 70.6 mmHg (25-40); Venous Blood Gas Hematocrit 24.4 % (42-52); pH VBG 7.45 (7.32-7.42)
[2025-02-26 06:41] LABS: Troponin 5 6HR 95.54 ng/L (0-15)
[2025-02-26 06:43] LABS: Troponin 5 6HR Delta 24.54 ng/L (0-12)
[2025-02-26 07:31] LABS: Bilirubin Urine Neg (Negative); Blood Urine Neg (Negative); Glucose Urine UA Norm (Normal); Ketones Urine Negative (Negative); Leukocyte Esterase Urine 1+ (Negative); Nitrate Urine Negative (Negative); Protein Urine 1+ (Negative); Specific Gravity, Urine 1.007 (1.005-1.030); Urine Appearance Clear (CLEAR); Urine Color Yellow (Yellow); Urobilinogen Urine 1 mg/dL (Negative); pH Urine 7 (5-7)
[2025-02-26 07:32] LABS: Fine Granular Casts Urine 2.46 /lpf; RBC Urine 0-4 /hpf (0-2); Squamous Epithelial Cell Urine 0-4 /hpf (0-5)
[2025-02-26 07:33] LABS: Add Urine Culture? Yes
[2025-02-26] MEDS: metOLazone 5 MG Tablet PO (08:19)
[2025-02-26] MEDS: isosorbide mononitrate ER 60 mg Tablet PO (08:19)
[2025-02-26] MEDS: nicotine 21 mg Patch 1 PATCH TRANSDERMA (08:19)
[2025-02-26] MEDS: spironolactone 25 mg Tablet PO ×2 (08:19→18:00)
[2025-02-26] MEDS: potassium chloride ER 20 mEq Tablet PO (08:19)
[2025-02-26] MEDS: gabapentin 100 mg Capsule 200 MG PO ×3 (08:19→21:23)
[2025-02-26] MEDS: hyDRALAzine 50 mg Tablet PO ×3 (08:19→21:25)
[2025-02-26] MEDS: metoprolol succinate ER (24 HR) 50 mg Tablet PO (08:19)
[2025-02-26] MEDS: ATORVASTATIN 10 MG TABLET 20 MG PO (08:19)
[2025-02-26 08:28] LABS: Glucose Point of Care 256 mg/dL (70-110)
--- NOTE | 2025-02-26 10:14 | US_ITS ---
WS: [id number] ULTRASOUND-GUIDED THORACENTESIS CLINICAL INFORMATION: pleural effusion PROCEDURE: Informed consent: The risks, benefits, and alternatives of the procedure were discussed with the patient. Verbal and written consent was obtained. Timeout: A timeout was performed to confirm the correct patient, procedure, and site. Site: RIGHT Preparation: A suitable skin site was identified. The patient was prepped and draped in usual sterile fashion. Lidocaine 1% was used for local anesthesia. Catheter: 4 [place] One-Step catheter. Fluid Volume: 1000 ml Color: Clear yellow Complications: None. / thoracentesis 93001 IMPRESSION: 1. Uncomplicated ultrasound-guided RIGHT thoracentesis. 2. 1000 cc clear yellow fluid removed 3. No pneumothorax post thoracentesis.
[2025-02-26] MEDS: insulin lispro 100 unit/1 mL SUBCUT ×3 (10:15→21:25)
[2025-02-26] MEDS: insulin glargine 100 units/1 mL 20 UNIT SUBCUT ×2 (10:16→18:00)
--- NOTE | 2025-02-26 10:23 | PC.SOCIAL ---
IMM Updated Updated pt on IMM. No questions voiced. Provided pt a copy. Initialed, dated, & timed a copy & placed in chart.
[2025-02-26 11:27] LABS: Glucose Point of Care 254 mg/dL (70-110)
--- NOTE | 2025-02-26 12:20 | PM.MISC ---
Miscellaneous Note Note: Seen this morning. Patient subjectively feels slightly better. Plan for thoracentesis today. I called radiology and asked if he could be added to the schedule. Patient has already held his Plavix and Xarelto for last 48 hours as per patient's sister and . I relayed this to radiology as well. Will check thoracentesis and fluid analysis. I agree with continuing Lasix 40 IV twice daily Since her troponin at 6 hours 24.54. BNP 9300. Will consult cardiology for NSTEMI.
[2025-02-26 12:30] LABS: INR 1.11 (0.8-1.2)
--- NOTE | 2025-02-26 13:10 | PM.CONSULT ---
Providers/Reason For Consult Consulting Physician/Specialty*: Sugey Lucas MD/cardiology Reason for Consult*: Patient with elevated troponin T, congestive heart failure and pleural effusion Requesting Physician: Dr. Greco Attending Physician: Greer Greco MD Primary Care Provider: Bree Perkins MD History of Present Illness History of Present Illness Ashvin Hickey is a 79 year old male with multiple medical problems, he is admitted to the hospital through the emergency room where he presented with complaints of progressive shortness of breath. Last night, he was finding it difficult to lie on his bed. He was trying to get into a recliner-but in the process, he fell. So his son who is a nurse advised him to be evaluated in the emergency room. In the emergency room, he was found to have significant orthopnea. He also was found to have an elevated troponin T. Cardiology consult is requested for further cardiac evaluation recommendations. Mr. 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 This patient has a history of congestive heart failure and was recently found to have right-sided pleural effusion. Apparently this patient was scheduled to have a thoracentesis as an outpatient next week. He has this pleural effusion for a while. He had a permanent pacer implantation and RF ablation at the [facility], a month ago. His pacemaker seems to be functioning okay. Patient has no chest pain. No significant palpitation, dizziness or any syncopal episodes. He has been compliant with medications. He has been noticing swelling of the right lower extremity for the last several weeks. Review of Systems Narrative: CONSTITUTIONAL: No fever or chills. EYES: No blurring of vision or other visual disturbances lately. ENT: No hoarseness of voice, auditory disturbances or sore throat. CARDIOVASCULAR: As mentioned above. RESPIRATORY: No significant cough. Shortness of breath and cough as mentioned above GASTROINTESTINAL: No hematemesis or melena. GENITOURINARY: History of chronic kidney disease, history of bladder cancer INTEGUMENTARY: No skin rashes or history of skin cancer. NEURO: No transient ischemic attacks or amaurosis. PSYCHIATRIC: No history of psychosis or major depression. HEMATOLOGIC: Chronic anemia ENDOCRINE: Type 2 diabetes MUSCULOSKELETAL: No recent joint pain or swelling. Status post above-knee amputation of the left ALLERGY/IMMUNOLOGY: As mentioned above. Medications/Allergies Home Medications ?Medication ?Instructions ?Recorded ?Confirmed ?Last Taken ?Type ferrous sulfate 325 mg (65 mg 325 mg PO QAM 02/10/20 02/26/25 02/25/25 History iron) tablet pantoprazole 40 mg tablet,delayed 40 mg PO BEDTIME 07/05/20 02/26/25 02/25/25 History release duloxetine 20 mg capsule,delayed 20 mg PO QAM 11/29/20 02/26/25 02/25/25 History release (Cymbalta) clopidogrel 75 mg tablet (Plavix) 75 mg PO QAM 03/09/21 02/26/25 02/22/25 History tamsulosin 0.4 mg capsule 0.4 mg PO QPM #90 caps 12/15/21 02/26/25 02/25/25 Rx folic acid 1 mg tablet 1 mg PO QAM 06/28/22 02/26/25 02/25/25 History sucralfate 1 gram tablet 1 g PO QID PRN UNKNOWN 07/12/22 02/26/25 09/12/22 20:00 History etanercept 50 mg/mL (1 mL) 50 mg SUBCUT Q7D 12/27/22 02/26/25 02/21/25 History subcutaneous pen injector (Enbrel SureClick) lisinopril 40 mg tablet 40 mg PO QAM 02/20/23 02/26/25 02/25/25 History gabapentin 100 mg capsule 200 mg PO TID 08/21/23 02/26/25 02/25/25 History insulin glargine 100 unit/mL (3 20 unit SUBCUT BID 08/21/23 02/26/25 02/25/25 History mL) subcutaneous pen (Lantus Solostar U-100 Insulin) metformin 500 mg tablet 500 mg PO BID 08/21/23 02/26/25 02/25/25 History methotrexate sodium 2.5 mg tablet 10 mg PO Q7D 08/21/23 02/26/25 02/25/25 History acetaminophen 500 mg tablet 500 mg PO Q6H PRN Pain 10/18/23 02/26/25 Unknown History cetirizine 10 mg tablet 10 mg PO BEDTIME allergy symptoms 10/18/23 02/26/25 02/25/25 History insulin aspart U-100 100 unit/mL See Rx Instructions .Route .COMPLEX 10/18/23 02/26/25 02/25/25 History (3 mL) subcutaneous pen (Novolog FlexPen U-100 Insulin aspart) nitroglycerin 0.4 mg sublingual 0.4 mg sublingual Q5M PRN Chest 10/18/23 02/26/25 Unknown History tablet (Nitrostat) Pain potassium chloride 10 mEq 20 meq PO QAM 10/18/23 02/26/25 02/25/25 History capsule,extended release multivit,Ca,min-iron 8 mg-folic 1 tab PO QAM 02/04/24 02/26/25 02/25/25 History acid 200 mcg-lycopene 600 mcg tablet (Centrum Men) pen needle, diabetic 32 gauge x 02/04/24 02/26/25 Unknown History sennosides 8.6 mg tablet (Senokot) 17.2 mg PO BEDTIME PRN Constipation 02/04/24 02/26/25 Unknown History isosorbide mononitrate 60 mg 60 mg PO DAILY #30 tabs 02/06/24 02/26/25 02/25/25 Rx tablet,extended release 24 hr furosemide 40 mg tablet 40 mg PO BID #180 tabs 10/16/24 02/26/25 02/25/25 Rx rivaroxaban 20 mg tablet (Xarelto) 20 mg PO QPM 12/23/24 02/26/25 02/22/25 History hydralazine 50 mg tablet 50 mg PO TID #270 tabs 01/18/25 02/26/25 02/25/25 Rx metoprolol succinate 50 mg 50 mg PO DAILY 02/25/25 02/26/25 02/25/25 History tablet,extended release 24 hr pravastatin 40 mg tablet 40 mg PO BEDTIME 02/25/25 02/26/25 02/25/25 History magnesium 250 mg tablet 250 mg PO DAILY 02/26/25 02/26/25 Unknown History Allergies Allergy/AdvReac Type Severity Reaction Status Date / Time No Known Allergies Allergy Verified 02/26/25 03:09 Current Medications Generic Name Dose Route Start Last Admin Trade Name Ioana PRN Reason Stop Dose Admin Acetaminophen 650 mg 02/26/25 04:07 02/26/25 05:06 Acetaminophen 325 Mg Tablet PO 650 mg Q6H PRN Administration Mild/Mod Pain Or Temp >/= 101 Atorvastatin Calcium 20 mg 02/26/25 09:00 02/26/25 08:19 Atorvastatin 10 Mg Tablet PO 20 mg DAILY LISSA Administration Clopidogrel Bisulfate 75 mg 02/26/25 06:00 02/26/25 11:17 Clopidogrel 75 Mg Tablet PO Not Given On Hold: 02/26/25 11:44 QAM LISSA Duloxetine HCl 20 mg 02/26/25 06:00 02/26/25 05:06 Duloxetine 20 Mg Capsule PO 20 mg QAM LISSA Administration Ferrous Sulfate 325 mg 02/26/25 06:00 02/26/25 05:06 Ferrous Sulfate Ec 325 Mg Tablet PO 325 mg QAM LISSA Administration Folic Acid 1 mg 02/26/25 06:00 02/26/25 05:06 Folic Acid 1 Mg Tablet PO 1 mg QAM LISSA Administration Furosemide 40 mg 02/26/25 03:45 02/26/25 04:53 Furosemide 10 Mg/Ml Sdv 4ml IVP 40 mg Q12H LISSA Administration Gabapentin 200 mg 02/26/25 09:00 02/26/25 08:19 Gabapentin 100 Mg Capsule PO 200 mg TID LISSA Administration Heparin Sodium (Porcine) 5,000 unit 02/26/25 04:07 02/26/25 04:53 Heparin 5,000 Unit/Ml Inj 1 Ml SUBCUT 5,000 unit Q12H LISSA Administration Hydralazine HCl 50 mg 02/26/25 09:00 02/26/25 08:19 Hydralazine 50 Mg Tablet PO 50 mg TID LISSA Administration Insulin Glargine 20 unit 02/26/25 09:00 02/26/25 10:16 Insulin Glargine 100 Units/1 Ml SUBCUT 20 unit BID LISSA Administration Insulin Human Lispro 0 unit 02/26/25 08:00 02/26/25 10:15 Insulin Lispro 100 Unit/1 Ml SUBCUT 6 unit WM&BEDTIME LISSA Administration Protocol Isosorbide Mononitrate 60 mg 02/26/25 09:00 02/26/25 08:19 Isosorbide Mononitrate Er 60 Mg Tablet PO 60 mg DAILY LISSA Administration Lisinopril 40 mg 02/26/25 06:00 02/26/25 11:17 Lisinopril 20 Mg Tablet PO Not Given QAM LISSA Metolazone 5 mg 02/26/25 09:00 02/26/25 08:19 Metolazone 5 Mg Tablet PO 5 mg DAILY LISSA Administration Metoprolol Succinate 50 mg 02/26/25 09:00 02/26/25 08:19 Metoprolol Succinate Er (24 Hr) 50 Mg Tablet PO 50 mg DAILY LISSA Administration Multivitamins Therapeutic 1 tab 02/26/25 06:00 02/26/25 05:06 Multivitamin Therapeutic Tablet PO 1 tab QAM LISSA Administration Nicotine 1 patch 02/26/25 09:00 02/26/25 08:19 Nicotine 21 Mg Patch TRANSDERMA 1 patch DAILY LISSA Administration Potassium Chloride 20 meq 02/26/25 09:00 02/26/25 08:19 Potassium Chloride Er 20 Meq Tablet PO 20 meq DAILY LISSA Administration Spironolactone 25 mg 02/26/25 09:00 02/26/25 08:19 Spironolactone 25 Mg Tablet PO 25 mg BID LISSA Administration PFSH Acute PFSH: Medical History Iron deficiency anemia Depression Postprocedural urethral stricture History of echocardiogram CHF (congestive heart failure) EF 55-60% 10/2023 Rheumatoid arthritis BPH loc w urin obs/LUTS Started on TAMSULOSIN March 2021 for chronic BPH symptoms Atrial fibrillation with RVR Patient converted to normal sinus rhythm with home dose of sotalol. Bladder cancer Low-grade noninvasive papillary urothelial carcinoma cystoscopy done in December 2020, status post intravesical mitomycin after each cystoscopy and status post induction therapy with weekly BCG intravesically from August 18, 2021 through September 22, 2021 Follow-up cystoscopy done on January 16, 2022 showed persistent/recurrence low-grade urothelial carcinoma status post fulguration followed by postop intravesical mitomycin. Proteinuria Coronary artery disease Anticoagulation adequate with anticoagulant therapy xarelto Carotid stenosis Abdominal aortic aneurysm (AAA) s/p repair COPD (chronic obstructive pulmonary disease) Tobacco abuse Peripheral arterial disease Erectile dysfunction Hypertriglyceridemia HTN (hypertension), benign Diabetic neuropathy Diabetes mellitus Surgical History History of colonoscopy History of cardiac catheterization History of left above knee amputation History of bladder surgery transurethral resection/fulguration of bladder tumor (01/04, 04/05, 08/06, 11/07, 02/06 Previous back surgery Hx of appendectomy History of carotid endarterectomy History of abdominal aortic aneurysm (AAA) repair S/P femoral-popliteal bypass surgery LLE x 2 preceding eventual AKA RLE 09/2023 S/P right coronary artery (RCA) stent placement hx of Distal RCA and Prox RCA Family History Father , in his 80's Stroke Mother , at age 83 Diabetes Social History Smoking and tobacco/nicotine status: current every day tobacco/nicotine user cigarettes Packs smoked per day: 1 Alcohol intake: former Year of sobriety/quit date alcohol: 2019 Former alcohol use details: Quit 5 years ago Substance/Drug Use: never Additional social history: 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 He wants full code as discussed 02/26/2025 with Ayan Covarrubias MD and his Amanda Household members: spouse Marital status: service: Yes branch: [employer] Current occupational status: retired Previous occupational history: Retired 2004 from [employer] Vitals/I&O/Wt Last Vital Signs Temp 97.7 F 02/26/25 11:59 Pulse 97 02/26/25 12:34 Resp 20 H 02/26/25 12:34 BP 140/65 02/26/25 11:59 Pulse Ox 92 02/26/25 12:36 O2 Del Method Nasal Cannula 02/26/25 12:36 O2 Flow Rate 4 02/26/25 12:36 02/25/25 02/26/25 02/26/25 22:59 06:59 14:59 Intake Total 0 / 0 120 / 120 Output Total 450 / 450 820 / 820 Balance -450 / -450 -700 / -700 Weight last 48 hrs Weight 166 lb Weight 168 lb 6.4 oz Weight 150 lb Physical Exam Narrative: GENERAL: The patient is alert and oriented times three. Not in any acute distress. HEENT: No significant pallor, icterus or lymphadenopathy.Oral cavity: There are no mucous membrane lesions. NECK: Trachea appears to be central. No masses noted. No JVD or thyromegaly appreciated. RESPIRATORY: Chest is symmetrical. No intercostals muscle retraction or any accessory muscle activation. There is no chest wall tenderness. Breath sounds are heard bilaterally. Breath sounds are diminished at the right base. BREASTS: Deferred. HEART: The heart sounds are normal. No S3 or S4. Short systolic murmur grade 3 or 6 in the left sternal border. No diastolic murmurs. No pericardial rub ABDOMEN: No vessel pulsations or distention. No tenderness. No organomegaly appreciated. Bowel sounds are normally heard. : Deferred. RECTAL: Deferred. LYMPHATIC: No lymphadenopathy noted in the neck. EXTREMITIES: 2+ edema of the right lower extremity. MUSCULOSKELETAL: Bony amputation of the left side. 2+ edema of the right lower extremity. Extremely weak dorsalis pedis and posterior tibial pulses. SKIN: There are no significant rashes or ecchymosis NEUROPSYCHIATRIC: The patient is alert and oriented x3. Appears to be in a good mood. No tremors or rigidity noted. Data 02/26/25 00:50 02/27/25 02:52 Other Labs: Laboratory Last Values WBC 4.83 10^3/uL (3.29-11.43) 02/26/25 00:50 RBC 2.39 10^6/uL (3.85-5.65) L 02/26/25 00:50 Hgb 8.00 g/dL (11.27-16.99) L 02/26/25 00:50 Hct 25.5 % (37-53) L 02/26/25 00:50 MCV 106.7 fl (82-101) H 02/26/25 00:50 MCH 33.5 pg (27-33) H 02/26/25 00:50 MCHC 31.4 g/dL (30-55) 02/26/25 00:50 RDW 20.7 % (12.1-15.1) H 02/26/25 00:50 Plt Count 273 10^3/cmm (157-399) 02/26/25 00:50 MPV 10.9 fL (7.4-10.4) H 02/26/25 00:50 Neut % (Auto) 73.4 % 02/26/25 00:50 Lymph % (Auto) 14.9 % 02/26/25 00:50 Coles % (Auto) 6.2 % 02/26/25 00:50 Eos % (Auto) 3.7 % 02/26/25 00:50 Baso % (Auto) 0.6 % 02/26/25 00:50 Neut # (Auto) 3.54 10^3/uL (1.8-7.7) 02/26/25 00:50 Lymph # (Auto) 0.7 10^3/uL (0.8-4.8) L 02/26/25 00:50 Coles # (Auto) 0.3 10^3/uL (0.2-0.9) 02/26/25 00:50 Eos # (Auto) 0.2 10^3/uL (0.0-0.8) 02/26/25 00:50 Baso # (Auto) 0.0 10^3/uL (0.0-0.1) 02/26/25 00:50 Nucleated RBC % (auto) 0 % 02/26/25 00:50 Nucleated RBCs # 0.0 /100WBC 02/26/25 00:50 PT 15.10 SECONDS (12.1-14.9) H 02/26/25 00:50 INR 1.11 (0.8-1.2) 02/26/25 00:50 Specimen Type Venous 02/26/25 06:08 Emigdio Test N/a 02/26/25 06:08 VBG pH 7.45 (7.32-7.42) H 02/26/25 06:08 VBG pCO2 39.6 mmHg (41-51) L 02/26/25 06:08 VBG pO2 70.6 mmHg (25-40) H 02/26/25 06:08 VBG HCO3 27.4 mmol/L (24-28) 02/26/25 06:08 VBG Base Excess 3.1 mmol/L (-3.0-3.0) H 02/26/25 06:08 VBG Hematocrit 24.4 % (42-52) L 02/26/25 06:08 O2 Delivery Device Nc 02/26/25 06:08 O2 Liters/Min 3.0 % 02/26/25 06:08 Busher Helper ID [email or web address] 02/26/25 06:08 Sodium 136 mmol/L (136-145) 02/26/25 00:50 Potassium 4.6 mmol/L (3.5-5.1) 02/26/25 00:50 Chloride 99 mmol/L (98-107) 02/26/25 00:50 Carbon Dioxide 21 mmol/L (22-29) L 02/26/25 00:50 Anion Gap 20.6 (5-19) H 02/26/25 00:50 BUN 30 mg/dL (8-23) H 02/26/25 00:50 Creatinine 1.5 mg/dL (0.7-1.2) H 02/26/25 00:50 GFR Calculation Not Reportable 02/26/25 00:50 Glucose 178 mg/dL (65-115) H 02/26/25 00:50 POC Glucose 254 mg/dL (70-110) H 02/26/25 10:47 Calculated Osmolality 293 mOsm/kg (285-295) 02/26/25 00:50 Calcium 8.2 mg/dL (8.5-10.5) L 02/26/25 00:50 Iron 34 ug/dL (59-158) L 02/26/25 03:00 TIBC 220 mcg/dl 02/26/25 03:00 % Saturation 15.4 % (20-50) L 02/26/25 03:00 Unsat Iron Binding 186 ug/dL (112-347) 02/26/25 03:00 Troponin T Baseline 71 ng/L (0-15) H 02/26/25 00:50 Troponin T 120 Minute 80.36 ng/L (0-15) H 02/26/25 03:00 Delta Troponin T 9.36 ABS# (0-10) 02/26/25 03:00 Troponin T Hi Sens 6Hr 95.54 ng/L (0-15) H 02/26/25 06:08 Troponin T Hi Sens 6Hr Delta 24.54 ng/L (0-12) H* 02/26/25 06:08 NT-Pro-B Natriuret Pep 9737 pg/mL (0-450) H 02/26/25 00:50 Urine Color Yellow (Yellow) 02/26/25 04:53 Urine Appearance Clear (CLEAR) 02/26/25 04:53 Urine pH 7 (5-7) 02/26/25 04:53 Ur Specific [place] 1.007 (1.005-1.030) 02/26/25 04:53 Urine Protein 1+ (Negative) H 02/26/25 04:53 Urine Glucose (UA) Norm (Normal) 02/26/25 04:53 Urine Ketones Negative (Negative) 02/26/25 04:53 Urine Blood Neg (Negative) 02/26/25 04:53 Urine Nitrate Negative (Negative) 02/26/25 04:53 Urine Bilirubin Neg (Negative) 02/26/25 04:53 Urine Urobilinogen 1 mg/dL (Negative) H 02/26/25 04:53 Ur Leukocyte Esterase 1+ (Negative) H 02/26/25 04:53 Urine RBC 0-4 /hpf (0-2) H 02/26/25 04:53 Urine WBC 11-20 /hpf (0-5) H 02/26/25 04:53 Ur Squamous Epith Cells 0-4 /hpf (0-5) H 02/26/25 04:53 Amorphous Sediment Not Reportable 02/26/25 04:53 Urine Bacteria None /hpf (NONE) 02/26/25 04:53 Fine Granular Casts 2.46 /lpf 02/26/25 04:53 Other data: EKG from today reveals 100% A sensed, V paced rhythm The chest x-ray showed Moderate, right-sided pleural effusion. Features of pulmonary edema The most recent cardiac catheterization from October 2023 * Left Main has no significant disease. * Left Anterior Descending has mild to moderate luminal irregularities. * Right Coronary Artery has patent prior stents. * Left circumflex artery is small caliber and diffusely diseased. * In mid to distal segment * and has * a significant 70 to 80% stenosis.. * Coronary angiography shows right dominance. Cardiac catheterization in 2020 * mid left circumflex artery has * 50-60% stenosis. * OM branch has diffuse severe disease.. * Left Main has minor luminal irregularities. * Left Anterior Descending has mild luminal irregularities. * Proximal to Mid Right Coronary Artery: critical 95% instent restenosis, LANCE: 3 flow. * Coronary angiography shows right dominance. A&P Assessment and plan (1) Acute on chronic heart failure with preserved ejection fraction: Possibly from the atrial fibrillation/diastolic dysfunction. May be treated with the diuretics carefully. (2) S/P femoral-popliteal bypass surgery: Currently asymptomatic. Status post [id number] amputation on the left side (3) Atrial fibrillation: Patient had the ablation at the [facility], last month. May continue on the oral anticoagulation for the time being (4) Carotid stenosis, bilateral: Currently asymptomatic. May continue on the current management. (5) HTN (hypertension), benign: Blood pressure is in the normal range. Will continue on the current medications. (6) Elevated troponin: Most likely it is a type II AL. Patient has no chest pain or any other specific cardiac symptoms. I may hold off for any further intervention at this point. May consider doing a Myocardial perfusion imaging as an outpatient (7) Pleural effusion: Most likely from the heart failure. Patient had 900 cc of beverly-colored fluid drained out today. May continue on the IV Lasix for the time being Plan Continue careful IV diuresis. Restart Xarelto Myocardial perfusion imaging as an outpatient. Based on the clinical progress, further recommendations will be made. Follow-up chest x-ray after thoracentesis Based on the clinical progress, further recommendations will be made PDMP PDMP Reviewed: Not Reviewed Consult Attestations Medical Necessity Statement: Patient requires continued hospital stay for close monitoring and further management Coding Level of Care Code 96573 Diagnoses Acute on chronic heart failure with preserved ejection fraction I50.33 S/P femoral-popliteal bypass surgery Z95.828 Persistent atrial fibrillation I48.19 Atrial fibrillation type: persistent (not longstanding) Carotid stenosis, bilateral I65.23 HTN (hypertension), benign I10 Elevated troponin R79.89 Pleural effusion J90
--- NOTE | 2025-02-26 14:59 | XR_ITS ---
WS: [id number] CHEST XRAY TECHNIQUE: Portable chest. CLINICAL INFORMATION: post para COMPARISON: 02/26/2025 at 12:34 a.m. FINDINGS: Heart: Cardiomegaly. Cardiac pacer. Aortic calcification. Lungs: Improved RIGHT pleural effusion postthoracentesis. Persistent RIGHT midlung and basilar compressive atelectasis. No pneumothorax. Persistent pulmonary vascular congestion. Tiny LEFT pleural effusion. Bones: Osteopenia. XR/XR chest 1V portable [id number] IMPRESSION: 1. Improved RIGHT pleural effusion postthoracentesis. No pneumothorax. 2. Persistent compressive atelectasis RIGHT midlung and RIGHT lower lobe. 3. Cardiomegaly.
--- NOTE | 2025-02-26 16:46 | PC.NURSE ---
pt has left lower leg amputated
[2025-02-26] MEDS: tamsulosin 0.4 mg Capsule PO (18:00)
[2025-02-26 18:15] LABS: Lactate Dehydrogenase 270 U/L (135-225); Total Protein 5.6 g/dL (6.6-8.7)
[2025-02-26 20:26] LABS: Glucose Point of Care 136 mg/dL (70-110)
[2025-02-26 20:26] LABS: Glucose Point of Care 354 mg/dL (70-110)
[2025-02-26] MEDS: cetirizine 10 mg Tablet PO (21:23)
[2025-02-26] MEDS: pantoprazole DR 40 mg Tablet PO (21:23)
[2025-02-27] VITALS (14 sets, daily range): BP systolic 84–116; BP diastolic 47–65; PULSE 89–95; RESP 16–20; TEMP 36.3–36.9; O2SAT 92–97
--- NOTE | 2025-02-27 03:52 | PC.NURSE ---
bp 90/50, lasix hold per Dr. Covarrubias
[2025-02-27 04:16] LABS: RBC, Body Fluid 0 10^3/uL
[2025-02-27 04:32] LABS: Body Fluid Polynuclear #Cells 0.008; Body Fluid WBC 317 /uL; Monocytes # Body Fluid 0.309
[2025-02-27 04:36] LABS: Apprearance, Body Fluid CLEAR; Color, Body Fluid YELLOW
[2025-02-27 04:43] LABS: Albumin Body Fluid 2.1 g/dL; Creatinine Body Fluid 1.66 (0.7-1.2); Total Protein Pleural Fluid 3.3 g/dL; Triglycerides, Pleural Fluid 18 mg/dL
[2025-02-27 04:44] LABS: LDH Pleural Fluid 125 U/L
[2025-02-27 04:46] LABS: Cyto Order Verification Order Verified
[2025-02-27 04:50] LABS: Anion Gap 15.8 (5-19); Blood Urea Nitrogen 36 mg/dL (8-23); Calcium 8.6 mg/dL (8.5-10.5); Carbon Dioxide 26 mmol/L (22-29); Chloride 99 mmol/L (98-107); Glucose 52 mg/dL (65-115); Osmolality Calculated 290 mOsm/kg (285-295); Phosphorus 4.9 mg/dL (2.5-4.5); Potassium 3.8 mmol/L (3.5-5.1); Sodium 137 mmol/L (136-145)
[2025-02-27] MEDS: multivitamin therapeutic Tablet 1 TAB PO (06:07)
[2025-02-27] MEDS: clopidogrel 75 mg Tablet PO (06:07)
[2025-02-27] MEDS: ferrous sulfate EC 325 mg Tablet PO (06:08)
[2025-02-27] MEDS: folic acid 1 mg Tablet PO (06:08)
[2025-02-27] MEDS: duloxetine 20 mg Capsule PO (06:08)
[2025-02-27] MEDS: ATORVASTATIN 10 MG TABLET 20 MG PO (08:34)
[2025-02-27] MEDS: gabapentin 100 mg Capsule 200 MG PO ×3 (08:34→20:55)
[2025-02-27] MEDS: potassium chloride ER 20 mEq Tablet PO ×3 (08:34→21:12)
[2025-02-27] MEDS: nicotine 21 mg Patch 1 PATCH TRANSDERMA (08:35)
[2025-02-27] MEDS: insulin lispro 100 unit/1 mL SUBCUT ×3 (08:35→20:55)
[2025-02-27] MEDS: insulin glargine 100 units/1 mL 20 UNIT SUBCUT ×2 (10:18→17:38)
--- NOTE | 2025-02-27 10:45 | PM.PN ---
Subjective Subjective: Patient says shortness of breath is better. But he is still feeling tired and weak. Mostly lying around. No chest pain. No fever or chills. The repeat chest x-ray after the thoracentesis, still showing small to moderate effusion on the right side. Persistent atelectatic changes in the lung. Medications: Medication Review Details: Current Medications Acetaminophen (Acetaminophen 325 Mg Tablet) 650 mg PO Q6H PRN PRN Reason: Mild/Mod Pain Or Temp >/= 101 Last Admin: 02/26/25 05:06 Dose: 650 mg Atorvastatin Calcium (Atorvastatin 10 Mg Tablet) 20 mg PO DAILY [facility] Last Admin: 02/27/25 08:34 Dose: 20 mg Cetirizine HCl (Cetirizine 10 Mg Tablet) 10 mg PO BEDTIME [facility] Last Admin: 02/26/25 21:23 Dose: 10 mg Clopidogrel Bisulfate (Cl[facility]ogrel 75 Mg Tablet) [facility] Admin: 02/27/25 06:07 Dose: 75 mg Duloxetine HCl (Duloxetine 20 Mg Capsule) 20 mg PO QAM [facility] Last Admin: 02/27/25 06:08 Dose: 20 mg Ferrous Sulfate (Ferrous Sulfate Ec 325 Mg Tablet) [facility] Last Admin: 02/27/25 06:08 Dose: 325 mg Folic Acid (Folic Acid 1 Mg Tablet) 1 mg PO QAM [facility] Last Admin: 02/27/25 06:08 Dose: 1 mg Furosemide (Furosemide 10 Mg/Ml Sdv 4ml) 40 mg IVP Q12H [facility] Last Admin: 02/27/25 04:02 Dose: Not Given Gabapentin (Gabapentin 100 Mg Capsule) 200 mg PO TID [facility] Last Admin: 02/27/25 08:34 Dose: 200 mg Glucagon (Glucagon 1 Mg/Ml Kit 1 Ml) 1 mg IM ONCE PRN; Protocol PRN Reason: Adult Acute Hypoglycemia Nursing Prot. Hydralazine HCl (Hydralazine 50 Mg Tablet) 50 mg PO TID [facility] On Hold: 02/27/25 07:13 Last Admin: 02/26/25 21:25 Dose: 50 mg Dextrose (D5w) 500 mls @ 0 mls/hr IV ONCE PRN; Protocol PRN Reason: Adult Acute Hypoglycemia Prot Dextrose (D10w) 125 mls @ 750 mls/hr IV PRN PRN; Protocol PRN Reason: Adult Acute Hypoglycemia Nursing Protocol Dextrose (D10w) 250 mls @ 1,000 mls/hr IV PRN PRN; Protocol PRN Reason: Adult Acute Hypoglycemia Nursing Protocol Insulin Glargine (Insulin Glargine 100 Units/1 Ml) 20 unit SUBCUT BID [facility] Last Admin: 02/27/25 10:18 Dose: 20 unit Insulin Human Lispro (Insulin Lispro 100 Unit/1 Ml) 0 unit SUBCUT WM&BEDTIME [facility]; Protocol Last Admin: 02/27/25 08:35 Dose: 12 unit Isosorbide Mononitrate (Isosorbide Mononitrate Er 60 Mg Tablet) 60 mg PO DAILY [facility] Last Admin: 02/27/25 08:15 Dose: Not Given Lisinopril (Lisinopril 20 Mg Tablet) 40 mg PO QAM [facility] On Hold: 02/27/25 07:14 Last Admin: 02/26/25 11:17 Dose: Not Given Metolazone (Metolazone 5 Mg Tablet) 5 mg PO DAILY [facility] Last Admin: 02/27/25 08:15 Dose: Not Given Metoprolol Succinate (Metoprolol Succinate Er (24 Hr) 50 Mg Tablet) 50 mg PO DAILY [facility] Last Admin: 02/27/25 08:15 Dose: Not Given Multivitamins Therapeutic (Multivitamin Therapeutic Tablet) 1 tab PO QAM [facility] Last Admin: 02/27/25 06:07 Dose: 1 tab Nicotine (Nicotine 21 Mg Patch) 1 patch TRANSDERMA DAILY [facility] Last Admin: 02/27/25 08:35 Dose: 1 patch Non-Formulary Medication (Methotrexate Sodium) 10 mg PO Q7D [facility] Ondansetron HCl (Ondansetron 2 Mg/Ml Sdv 2 Ml) 4 mg IVP Q8H PRN PRN Reason: vomiting, or N/V if npo Pantoprazole Sodium (Pantoprazole Dr 40 Mg Tablet) 40 mg PO BEDTIME [facility] Last Admin: 02/26/25 21:23 Dose: 40 mg Potassium Chloride (Potassium Chloride Er 20 Meq Tablet) 20 meq PO DAILY [facility] Last Admin: 02/27/25 08:34 Dose: 20 meq Rivaroxaban (Rivaroxaban 10 Mg Tablet) 20 mg PO QPM [facility] Last Admin: 02/26/25 18:00 Dose: Not Given Senna (Sennosides 8.6 Mg Tablet) 17.2 mg PO BEDTIME PRN PRN Reason: CONSTIPATION Spironolactone (Spironolactone 25 Mg Tablet) 25 mg PO BID [facility] Last Admin: 02/27/25 08:15 Dose: Not Given Sucralfate (Sucralfate 1 Gm Tablet) 1 gm PO QID PRN PRN Reason: UNKNOWN Tamsulosin HCl (Tamsulosin 0.4 Mg Capsule) 0.4 mg PO QPM [facility] Last Admin: 02/26/25 18:00 Dose: 0.4 mg Vitals/I&O/Wt Last Vital Signs Temp 97.6 F 02/27/25 07:46 Pulse 91 02/27/25 07:46 Resp 16 02/27/25 07:46 BP 100/60 02/27/25 07:46 Pulse Ox 95 02/27/25 07:46 O2 Del Method Nasal Cannula 02/27/25 07:46 O2 Flow Rate 4 02/27/25 08:28 02/26/25 02/27/25 02/27/25 22:59 06:59 14:59 Intake Total 480 / 720 400 / 1120 480 / 480 Output Total 600 / 1720 Balance 480 / -400 -200 / -600 480 / 480 Weight last 48 hrs Weight 166 lb Weight 166 lb Weight 168 lb 6.4 oz Weight 150 lb Physical Exam Narrative: GENERAL: The patient is alert and oriented times three. Not in any acute distress. HEENT: No significant pallor, icterus or lymphadenopathy.Oral cavity: There are no mucous membrane lesions. NECK: Trachea appears to be central. No masses noted. No JVD or thyromegaly appreciated. RESPIRATORY: Chest is symmetrical. No intercostals muscle retraction or any accessory muscle activation. There is no chest wall tenderness. Breath sounds are heard bilaterally. Breath sounds are diminished at the right base. Scattered expiratory wheeze BREASTS: Deferred. HEART: The heart sounds are normal. No S3 or S4. Short systolic murmur grade 3 or 6 in the left sternal border. No diastolic murmurs. No pericardial rub ABDOMEN: No vessel pulsations or distention. No tenderness. No organomegaly appreciated. Bowel sounds are normally heard. : Deferred. RECTAL: Deferred. LYMPHATIC: No lymphadenopathy noted in the neck. EXTREMITIES: 2+ edema of the right lower extremity. MUSCULOSKELETAL: Bony amputation of the left side. 2+ edema of the right lower extremity. Extremely weak dorsalis pedis and posterior tibial pulses. SKIN: There are no significant rashes or ecchymosis NEUROPSYCHIATRIC: The patient is alert and oriented x3. Appears to be in a good mood. No tremors or rigidity noted. Data 02/26/25 00:50 02/27/25 02:52 Other Labs: Laboratory Last Values WBC 4.83 10^3/uL (3.29-11.43) 02/26/25 00:50 RBC 2.39 10^6/uL (3.85-5.65) L 02/26/25 00:50 Hgb 8.00 g/dL (11.27-16.99) L 02/26/25 00:50 Hct 25.5 % (37-53) L 02/26/25 00:50 MCV 106.7 fl (82-101) H 02/26/25 00:50 MCH 33.5 pg (27-33) H 02/26/25 00:50 MCHC 31.4 g/dL (30-55) 02/26/25 00:50 RDW 20.7 % (12.1-15.1) H 02/26/25 00:50 Plt Count 273 10^3/cmm (157-399) 02/26/25 00:50 MPV 10.9 fL (7.4-10.4) H 02/26/25 00:50 Neut % (Auto) 73.4 % 02/26/25 00:50 Lymph % (Auto) 14.9 % 02/26/25 00:50 [place] % (Auto) 6.2 % 02/26/25 00:50 Eos % (Auto) 3.7 % 02/26/25 00:50 Baso % (Auto) 0.6 % 02/26/25 00:50 Neut # (Auto) 3.54 10^3/uL (1.8-7.7) 02/26/25 00:50 Lymph # (Auto) 0.7 10^3/uL (0.8-4.8) L 02/26/25 00:50 [place] # (Auto) 0.3 10^3/uL (0.2-0.9) 02/26/25 00:50 Eos # (Auto) 0.2 10^3/uL (0.0-0.8) 02/26/25 00:50 Baso # (Auto) 0.0 10^3/uL (0.0-0.1) 02/26/25 00:50 Nucleated RBC % (auto) 0 % 02/26/25 00:50 Nucleated RBCs # 0.0 /100WBC 02/26/25 00:50 PT 15.10 SECONDS (12.1-14.9) H 02/26/25 00:50 INR 1.11 (0.8-1.2) 02/26/25 00:50 Specimen Type Venous 02/26/25 06:08 Emigdio Test N/a 02/26/25 06:08 VBG pH 7.45 (7.32-7.42) H 02/26/25 06:08 VBG pCO2 39.6 mmHg (41-51) L 02/26/25 06:08 VBG pO2 70.6 mmHg (25-40) H 02/26/25 06:08 VBG HCO3 27.4 mmol/L (24-28) 02/26/25 06:08 VBG Base Excess 3.1 mmol/L (-3.0-3.0) H 02/26/25 06:08 VBG Hematocrit 24.4 % (42-52) L 02/26/25 06:08 O2 Delivery Device Nc 02/26/25 06:08 O2 Liters/Min 3.0 % 02/26/25 06:08 Aircraft Pneudraulics Repairer ID [email or web address] 02/26/25 06:08 Sodium 137 mmol/L (136-145) 02/27/25 02:52 Potassium 3.8 mmol/L (3.5-5.1) 02/27/25 02:52 Chloride 99 mmol/L (98-107) 02/27/25 02:52 Carbon Dioxide 26 mmol/L (22-29) 02/27/25 02:52 Anion Gap 15.8 (5-19) 02/27/25 02:52 BUN 36 mg/dL (8-23) H 02/27/25 02:52 Creatinine 1.8 mg/dL (0.7-1.2) H 02/27/25 02:52 GFR Calculation Not Reportable 02/27/25 02:52 Glucose 52 mg/dL (65-115) L 02/27/25 02:52 POC Glucose 354 mg/dL (70-110) H 02/26/25 20:11 Calculated Osmolality 290 mOsm/kg (285-295) 02/27/25 02:52 Calcium 8.6 mg/dL (8.5-10.5) 02/27/25 02:52 Phosphorus 4.9 mg/dL (2.5-4.5) H 02/27/25 02:52 Magnesium 2.0 mg/dL (1.7-2.3) 02/27/25 02:52 Iron 34 ug/dL (59-158) L 02/26/25 03:00 TIBC 220 mcg/dl 02/26/25 03:00 % Saturation 15.4 % (20-50) L 02/26/25 03:00 Unsat Iron Binding 186 ug/dL (112-347) 02/26/25 03:00 Lactate Dehydrogenase 270 U/L (135-225) H 02/26/25 06:08 Troponin T Baseline 71 ng/L (0-15) H 02/26/25 00:50 Troponin T 120 Minute 80.36 ng/L (0-15) H 02/26/25 03:00 Delta Troponin T 9.36 ABS# (0-10) 02/26/25 03:00 Troponin T Hi Sens 6Hr 95.54 ng/L (0-15) H 02/26/25 06:08 Troponin T Hi Sens 6Hr Delta 24.54 ng/L (0-12) H* 02/26/25 06:08 NT-Pro-B Natriuret Pep 9737 pg/mL (0-450) H 02/26/25 00:50 Total Protein 5.6 g/dL (6.6-8.7) L 02/26/25 06:08 Urine Color Yellow (Yellow) 02/26/25 04:53 Urine Appearance Clear (CLEAR) 02/26/25 04:53 Urine pH 7 (5-7) 02/26/25 04:53 Ur Specific [place] 1.007 (1.005-1.030) 02/26/25 04:53 Urine Protein 1+ (Negative) H 02/26/25 04:53 Urine Glucose (UA) Norm (Normal) 02/26/25 04:53 Urine Ketones Negative (Negative) 02/26/25 04:53 Urine Blood Neg (Negative) 02/26/25 04:53 Urine Nitrate Negative (Negative) 02/26/25 04:53 Urine Bilirubin Neg (Negative) 02/26/25 04:53 Urine Urobilinogen 1 mg/dL (Negative) H 02/26/25 04:53 Ur Leukocyte Esterase 1+ (Negative) H 02/26/25 04:53 Urine RBC 0-4 /hpf (0-2) H 02/26/25 04:53 Urine WBC 11-20 /hpf (0-5) H 02/26/25 04:53 Ur Squamous Epith Cells 0-4 /hpf (0-5) H 02/26/25 04:53 Amorphous Sediment Not Reportable 02/26/25 04:53 Urine Bacteria None /hpf (NONE) 02/26/25 04:53 Fine Granular Casts 2.46 /lpf 02/26/25 04:53 Fluid Color Yellow 02/26/25 13:30 Fluid Appearance Clear 02/26/25 13:30 Fluid WBC 317 /uL 02/26/25 13:30 Fluid RBC 0 10^3/uL 02/26/25 13:30 Fluid Hematocrit 0.0 % 02/26/25 13:30 Fld Polynuclear WBCs # 0.008 02/26/25 13:30 Fld Polynuclear WBCs % 2.500 % 02/26/25 13:30 Fl Mononucl WBCs #(Auto) 0.309 02/26/25 13:30 Fl Mononuclear % Auto 97.500 % 02/26/25 13:30 Fld Crystal Laterality Unk 02/26/25 13:30 Fluid Albumin 2.1 g/dL 02/26/25 13:30 Fluid Creatinine 1.66 (0.7-1.2) H 02/26/25 13:30 Pleural pH 7.50 (6.5-7.5) 02/26/25 13:30 Pleural Total Protein 3.3 g/dL 02/26/25 13:30 Pleural LDH 125 U/L 02/26/25 13:30 Pleural Glucose 204.0 mg/dL 02/26/25 13:30 Pleural Triglycerides 18 mg/dL 02/26/25 13:30 A&P Assessment and plan (1) Acute on chronic heart failure with preserved ejection fraction: Possibly from the atrial fibrillation/diastolic dysfunction. Continue the IV diuresis. I may go ahead and do a ahead and do a limited 2D echocardiogram to reevaluate the LV function and decide on further management. (2) S/P femoral-popliteal bypass surgery: Currently asymptomatic. Status post [id number] amputation on the left side. Continue on the current management (3) Atrial fibrillation: Patient had the ablation at the [facility], last month. May continue on the oral anticoagulation for the time being (4) Carotid stenosis, bilateral: Currently asymptomatic. May continue on the current management. (5) HTN (hypertension), benign: Blood pressure is in the normal range-low normal side. Will continue on the current medications. (6) Elevated troponin: Most likely it is a type II [place]. Patient has no chest pain or any other specific cardiac symptoms. I may hold off for any further intervention at this point. May consider doing a Myocardial perfusion imaging as an outpatient (7) Pleural effusion: Most likely from the heart failure. Status post thoracentesis. Possibility of pneumonia or lung lesions causing this cannot be excluded. Further workup as per the primary Plan I may increase the dose of the IV Lasix to 60 mg Q 8 hours x 3 with the potassium 20 mg p.o. every 8 hours x 3 Repeat BMP in the morning Close monitoring of the lisinopril at this time. Based on the clinical progress, further management decisions will be made. PDMP PDMP Reviewed: Not Reviewed Attestations Medical Necessity Statement*: Patient requires continued hospital stay for close monitoring and further management Coding Level of Care Code 41003 Diagnoses Acute on chronic heart failure with preserved ejection fraction I50.33 S/P femoral-popliteal bypass surgery Z95.828 Persistent atrial fibrillation I48.19 Atrial fibrillation type: persistent (not longstanding) Carotid stenosis, bilateral I65.23 HTN (hypertension), benign I10 Elevated troponin R79.89 Pleural effusion J90
[2025-02-27 11:13] LABS: Glucose Point of Care 142 mg/dL (70-110)
--- NOTE | 2025-02-27 11:31 | PC.CHAP ---
Pastoral Care Encounter/Spiritual Assessment Type of Contact [] Declined account technician visit [] Patient/Family/Request visit [] Outpatient visit [] Follow-up visit [] Physician referral [] Code/Alert [x] Routine visit [] Staff referral [] Actively dying [x] Patient sleeping [] Family support [] [] Out of room [] Palliative care [] [] Receiving care in room [] Pre-surgical visit [] Trauma [] Long length of stay [] ICU visit [] Other: Relational/Emotional Strength [] Patient feels connected with others/family/visitors/staff [] Distress [] Loneliness/isolation [] Abandonment Spirituality of Patient [] Person of Jewell [] Attends Moravian of their Jewell [] Believes in Prayer [] Reads Bible or Buddhism materials [] There are Spiritual issues to be addressed Motor 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 Driver 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 [] Prayer [] Active listening [] Non-anxious presence [] Spiritual/emotional support [] Crisis/trauma care [] Spiritual counseling [] Bereavement support [] Provided bereavement packet [] Provided Bible/devotional materials [] Provided toy/stuffed animal, coloring book to patient or family member [] Provided Communion [] Anointing/[place] [] Salvation [] Completed spiritual assessment [] Other: Impact on Illness or Injury [] Angry [] Fearful [] Anxious [] Often cries [] Exhaustion [] Unable to work [] Unable to attend rastafari [] Unable to walk/stand [] Unable to read [] Unable to drive [] Unable to eat/drink [] Unable to sleep [] Unable to be with family [] Patient intubated [] Other: Summary Time spent with patient
[2025-02-27] MEDS: FUROsemide 10 mg/mL SDV 10mL 60 MG IVP ×2 (15:03→23:21)
--- NOTE | 2025-02-27 15:46 | P.PN_ITS ---
Subjective 2 Subjective: Patient is status post thoracentesis with 1 L removed from right side. Right sided atelectasis present at base. Patient on 4 L nasal cannula at this time. Sleeping. States he can breathe a little better compared to before. Vitals/I&O/Wt Last Vital Signs Temp 97.7 F 02/27/25 15:35 Pulse 91 02/27/25 15:45 Resp 18 02/27/25 15:35 BP 84/51 02/27/25 15:35 Pulse Ox 94 02/27/25 15:35 O2 Del Method Nasal Cannula 02/27/25 15:35 O2 Flow Rate 4 02/27/25 13:53 02/27/25 02/27/25 02/27/25 06:59 14:59 22:59 Intake Total 400 / 1120 1120 / 1120 Output Total 600 / 1720 Balance -200 / -600 1120 / 1120 Weight last 48 hrs Weight 75.296 kg Weight 75.296 kg Weight 76.385 kg Weight 68.039 kg Physical Exam 2 Narrative: General well-developed chronically ill-appearing male CV: Regular regular rhythm no loud murmur Lungs: Decreased bilateral air entry with mild crackles bilaterally bases. On 4 L nasal cannula at this time. Abdomen positive bowel sounds soft nontender he has a diastases ventral hernia Right calf 2+ edema he has a left BKA no sore right foot with shoe removed no sores Mentation alert and oriented x 3 pleasant Data 02/26/25 00:50 02/27/25 02:52 Micro: Microbiology 02/26/25 04:53 Urine Culture - Preliminary Urine,Clean Catch Strep species, gamma-hemolytic A&P Assessment and plan (1) Acute hypoxemic respiratory failure: Patient will be supported with oxygen for sats greater than 90%. Check venous blood gas in the morning consider BiPAP Patient will be diuresed with IV furosemide 40 mg twice a day Zaroxolyn 5 mg daily and spironolactone 25 mg twice a day. Monitor renal function (2) Acute on chronic heart failure with preserved ejection fraction: As above last EF 55 to 60% (3) Pleural effusion: Diurese as above. If need to proceed with thoracentesis will hold his rivaroxaban for 48 hours. Hold rivaroxaban for now and cover with subcu heparin (4) Nicotine dependence, cigarettes, with other nicotine-induced disorders: Start nicotine patch 21 mg daily. Patient was counseled regarding need for smoking cessation he has severe vascular disease. We also counseled that nicotine replacement still causes vascular disease so need to wean off the nicotine as well (5) Rheumatoid arthritis: Continue methotrexate and home Enbrel (6) High risk medication use: Rheumatoid arthritis medications noted (7) History of left above knee amputation: No stump ischemia found on exam (8) S/P right coronary artery (RCA) stent placement: Patient counseled regarding need for smoking cessation. Continue Plavix (9) Diabetes mellitus: Start sliding scale insulin and continue home Lantus 20 units twice a day. Start 1500-calorie ADA diet (10) Iron deficiency anemia: Patient reports iron deficiency. Will check iron studies (11) Bladder cancer: Will obtain urinalysis (12) Atrial fibrillation: Hold rivaroxaban for now (13) BPH loc w urin obs/LUTS: Continue tamsulosin (14) Carotid stenosis, bilateral: Patient counseled regarding smoking cessation Plan 02/27/2025 Discussed with cardiology today. Patient is status post thoracentesis. Restarted rivaroxaban and Plavix. ? Lights criteria: Effusion met criteria for being an exudate. However patient has been on diuretics at home. Not empyema ? Continue sliding scale insulin at moderate dose intensity. Continue Lantus 20 twice a day Echocardiogram ordered. Results are pending. ? Patient did have an ablation done last month for atrial fibrillation at [facility]. Continue Xarelto. Elevated troponin most likely secondary to demand ischemia type II MT. Will consider stress testing as an outpatient. Continue Lasix 60 IV 3 times daily. Check BMP in AM. Creatinine 1.8. [facility] PDMP Reviewed: Not Reviewed Attestations 2 Medical Necessity Statement*: requires continued diuresis Diagnoses Acute hypoxemic respiratory failure J96.01 Acute on chronic heart failure with preserved ejection fraction I50.33 Pleural effusion J90 Nicotine dependence, cigarettes, with other nicotine-induced disorders F17.218 Rheumatoid arthritis M06.9 High risk medication use Z79.899 History of left above knee amputation Z89.612 S/P right coronary artery (RCA) stent placement Z95.5 Type 2 diabetes mellitus with hyperglycemia, with long-term current use of insulin E11.65; Z79.4 Diabetes mellitus type: type 2 Diabetes mellitus combatant swimmer insulin use: with combatant swimmer use Diabetes mellitus complication status: with hyperglycemia Iron deficiency anemia D50.9 Malignant neoplasm of overlapping sites of bladder C67.8 Bladder location: overlapping sites Persistent atrial fibrillation I48.19 Atrial fibrillation type: persistent (not longstanding) BPH loc w urin obs/LUTS N40.1 Carotid stenosis, bilateral I65.23
[2025-02-27 16:37] LABS: Glucose Point of Care 131 mg/dL (70-110)
[2025-02-27] MEDS: rivaroxaban 10 mg Tablet 20 MG PO (17:37)
[2025-02-27] MEDS: tamsulosin 0.4 mg Capsule PO (17:37)
[2025-02-27] MEDS: spironolactone 25 mg Tablet PO (17:37)
[2025-02-27 20:42] LABS: Glucose Point of Care 367 mg/dL (70-110)
[2025-02-27] MEDS: cetirizine 10 mg Tablet PO (20:55)
[2025-02-27] MEDS: pantoprazole DR 40 mg Tablet PO (20:55)
--- NOTE | 2025-02-27 23:20 | PC.NURSE ---
choco bp 99/58 instructed to give scheduled 60mg Lasix per Dr. Covarrubias
[2025-02-28] VITALS (11 sets, daily range): BP systolic 104–126; BP diastolic 53–70; PULSE 90–97; RESP 17–20; TEMP 36.7; O2SAT 90–99
[2025-02-28 04:03] LABS: Anion Gap 15.3 (5-19); Blood Urea Nitrogen 37 mg/dL (8-23); Calcium 8.9 mg/dL (8.5-10.5); Carbon Dioxide 26 mmol/L (22-29); Chloride 100 mmol/L (98-107); Glucose 117 mg/dL (65-115); Magnesium 2.1 mg/dL (1.7-2.3); Osmolality Calculated 294 mOsm/kg (285-295); Potassium 4.3 mmol/L (3.5-5.1); Sodium 137 mmol/L (136-145)
[2025-02-28] MEDS: folic acid 1 mg Tablet PO (05:32)
[2025-02-28] MEDS: multivitamin therapeutic Tablet 1 TAB PO (05:32)
[2025-02-28] MEDS: duloxetine 20 mg Capsule PO (05:32)
[2025-02-28] MEDS: ferrous sulfate EC 325 mg Tablet PO (05:32)
[2025-02-28] MEDS: potassium chloride ER 20 mEq Tablet PO ×3 (05:33→13:29)
[2025-02-28] MEDS: clopidogrel 75 mg Tablet PO (05:33)
[2025-02-28 06:33] LABS: Glucose Point of Care 151 mg/dL (70-110)
[2025-02-28] MEDS: insulin lispro 100 unit/1 mL SUBCUT ×4 (07:43→20:53)
[2025-02-28] MEDS: FUROsemide 10 mg/mL SDV 10mL 60 MG IVP (07:43)
--- NOTE | 2025-02-28 09:24 | P.PN_ITS ---
Subjective 2 Subjective: Patient has significant improvement of the shortness of breath. The oxygenation is back to the baseline. No fever, chills or cough. No other specific complaints. Medications: Medication Review Details: Current Medications Acetaminophen (Acetaminophen 325 Mg Tablet) 650 mg PO Q6H PRN PRN Reason: Mild/Mod Pain Or Temp >/= 101 Last Admin: 02/26/25 05:06 Dose: 650 mg Atorvastatin Calcium (Atorvastatin 10 Mg Tablet) 20 mg PO DAILY COUNT INCLUDES THE [facility] Last Admin: 02/27/25 08:34 Dose: 20 mg Cetirizine HCl (Cetirizine 10 Mg Tablet) 10 mg PO BEDTIME COUNT INCLUDES THE [facility] Last Admin: 02/27/25 20:55 Dose: 10 mg Clopidogrel Bisulfate (Clopidogrel 75 Mg Tablet) [facility] [place] Admin: 02/28/25 05:33 Dose: 75 mg Duloxetine HCl (Duloxetine 20 Mg Capsule) 20 mg PO QAM COUNT INCLUDES THE [facility] Last Admin: 02/28/25 05:32 Dose: 20 mg Ferrous Sulfate (Ferrous Sulfate Ec 325 Mg Tablet) [facility] [place] Last Admin: 02/28/25 05:32 Dose: 325 mg Folic Acid (Folic Acid 1 Mg Tablet) 1 mg PO QAM COUNT INCLUDES THE [facility] Last Admin: 02/28/25 05:32 Dose: 1 mg Furosemide (Furosemide 10 Mg/Ml Sdv 10ml) 60 mg IVP Q8H COUNT INCLUDES THE [facility] Stop: 02/28/25 13:30 Last Admin: 02/28/25 07:43 Dose: 60 mg Gabapentin (Gabapentin 100 Mg Capsule) 200 mg PO TID COUNT INCLUDES THE [facility] Last Admin: 02/27/25 20:55 Dose: 200 mg Glucagon (Glucagon 1 Mg/Ml Kit 1 Ml) 1 mg IM ONCE PRN; Protocol PRN Reason: Adult Acute Hypoglycemia Nursing Prot. Hydralazine HCl (Hydralazine 50 Mg Tablet) 50 mg PO TID COUNT INCLUDES THE [facility] On Hold: 02/27/25 07:13 Last Admin: 02/26/25 21:25 Dose: 50 mg Dextrose (D5w) 500 mls @ 0 mls/hr IV ONCE PRN; Protocol PRN Reason: Adult Acute Hypoglycemia Prot Dextrose (D10w) 125 mls @ 750 mls/hr IV PRN PRN; Protocol PRN Reason: Adult Acute Hypoglycemia Nursing Protocol Dextrose (D10w) 250 mls @ 1,000 mls/hr IV PRN PRN; Protocol PRN Reason: Adult Acute Hypoglycemia Nursing Protocol Insulin Glargine (Insulin Glargine 100 Units/1 Ml) 20 unit SUBCUT BID COUNT INCLUDES THE [facility] Last Admin: 02/27/25 17:38 Dose: 20 unit Insulin Human Lispro (Insulin Lispro 100 Unit/1 Ml) 0 unit SUBCUT WM&BEDTIME COUNT INCLUDES THE [facility]; Protocol Last Admin: 02/28/25 07:43 Dose: 2 unit Isosorbide Mononitrate (Isosorbide Mononitrate Er 60 Mg Tablet) 60 mg PO DAILY COUNT INCLUDES THE [facility] Last Admin: 02/27/25 08:15 Dose: Not Given Lisinopril (Lisinopril 20 Mg Tablet) 40 mg PO QAM COUNT INCLUDES THE [facility] On Hold: 02/27/25 07:14 Last Admin: 02/26/25 11:17 Dose: Not Given Metolazone (Metolazone 5 Mg Tablet) 5 mg PO DAILY COUNT INCLUDES THE [facility] Last Admin: 02/27/25 08:15 Dose: Not Given Metoprolol Succinate (Metoprolol Succinate Er (24 Hr) 50 Mg Tablet) 50 mg PO DAILY COUNT INCLUDES THE [facility] Last Admin: 02/27/25 08:15 Dose: Not Given Multivitamins Therapeutic (Multivitamin Therapeutic Tablet) 1 tab PO QAM COUNT INCLUDES THE [facility] Last Admin: 02/28/25 05:32 Dose: 1 tab Nicotine (Nicotine 21 Mg Patch) 1 patch TRANSDERMA DAILY COUNT INCLUDES THE [facility] Last Admin: 02/27/25 08:35 Dose: 1 patch Non-Formulary Medication (Methotrexate Sodium) 10 mg PO Q7D COUNT INCLUDES THE [facility] Ondansetron HCl (Ondansetron 2 Mg/Ml Sdv 2 Ml) 4 mg IVP Q8H PRN PRN Reason: vomiting, or N/V if npo Pantoprazole Sodium (Pantoprazole Dr 40 Mg Tablet) 40 mg PO BEDTIME COUNT INCLUDES THE [facility] Last Admin: 02/27/25 20:55 Dose: 40 mg Potassium Chloride (Potassium Chloride Er 20 Meq Tablet) 20 meq PO DAILY COUNT INCLUDES THE [facility] Last Admin: 02/27/25 08:34 Dose: 20 meq Potassium Chloride (Potassium Chloride Er 20 Meq Tablet) 20 meq PO Q8H LISSA Stop: 02/28/25 13:30 Last Admin: 02/28/25 05:33 Dose: 20 meq Rivaroxaban (Rivaroxaban 10 Mg Tablet) 20 mg PO QPM COUNT INCLUDES THE [facility] Last Admin: 02/27/25 17:37 Dose: 20 mg Senna (Sennosides 8.6 Mg Tablet) 17.2 mg PO BEDTIME PRN PRN Reason: CONSTIPATION Spironolactone (Spironolactone 25 Mg Tablet) 25 mg PO BID COUNT INCLUDES THE [facility] Last Admin: 02/27/25 17:37 Dose: 25 mg Sucralfate (Sucralfate 1 Gm Tablet) 1 gm PO QID PRN PRN Reason: UNKNOWN Tamsulosin HCl (Tamsulosin 0.4 Mg Capsule) 0.4 mg PO QPM COUNT INCLUDES THE [facility] Last Admin: 02/27/25 17:37 Dose: 0.4 mg Vitals/I&O/Wt Last Vital Signs Temp 98.1 F 02/28/25 07:43 Pulse 94 02/28/25 07:43 Resp 19 H 02/28/25 07:43 BP 111/59 02/28/25 07:43 Pulse Ox 98 02/28/25 07:43 O2 Del Method Nasal Cannula 02/28/25 07:43 O2 Flow Rate 3 02/28/25 07:54 02/27/25 02/28/25 02/28/25 22:59 06:59 14:59 Intake Total 680 / 1800 360 / 360 Output Total 1250 / 1250 1200 / 2450 Balance -570 / 550 -1200 / -650 360 / 360 Weight last 48 hrs Weight 162 lb 9.6 oz Weight 166 lb Physical Exam 2 Narrative: GENERAL: The patient is alert and oriented times three. Not in any acute distress. HEENT: No significant pallor, icterus or lymphadenopathy.Oral cavity: There are no mucous membrane lesions. NECK: Trachea appears to be central. No masses noted. No JVD or thyromegaly appreciated. RESPIRATORY: Chest is symmetrical. No intercostals muscle retraction or any accessory muscle activation. There is no chest wall tenderness. Breath sounds are heard bilaterally. Breath sounds are slightly diminished at the right base. BREASTS: Deferred. HEART: The heart sounds are normal. No S3 or S4. Short systolic murmur grade 3 or 6 in the left sternal border. No diastolic murmurs. No pericardial rub ABDOMEN: No vessel pulsations or distention. No tenderness. No organomegaly appreciated. Bowel sounds are normally heard. : Deferred. RECTAL: Deferred. LYMPHATIC: No lymphadenopathy noted in the neck. EXTREMITIES:1- 2+ edema of the right lower extremity. MUSCULOSKELETAL: Bony amputation of the left side. 2+ edema of the right lower extremity. Extremely weak dorsalis pedis and posterior tibial pulses. SKIN: There are no significant rashes or ecchymosis NEUROPSYCHIATRIC: The patient is alert and oriented x3. Appears to be in a good mood. No tremors or rigidity noted. Data 02/26/25 00:50 02/28/25 02:51 Other Labs: Laboratory Last Values WBC 4.83 10^3/uL (3.29-11.43) 02/26/25 00:50 RBC 2.39 10^6/uL (3.85-5.65) L 02/26/25 00:50 Hgb 8.00 g/dL (11.27-16.99) L 02/26/25 00:50 Hct 25.5 % (37-53) L 02/26/25 00:50 MCV 106.7 fl (82-101) H 02/26/25 00:50 MCH 33.5 pg (27-33) H 02/26/25 00:50 MCHC 31.4 g/dL (30-55) 02/26/25 00:50 RDW 20.7 % (12.1-15.1) H 02/26/25 00:50 Plt Count 273 10^3/cmm (157-399) 02/26/25 00:50 MPV 10.9 fL (7.4-10.4) H 02/26/25 00:50 Neut % (Auto) 73.4 % 02/26/25 00:50 Lymph % (Auto) 14.9 % 02/26/25 00:50 [place] % (Auto) 6.2 % 02/26/25 00:50 Eos % (Auto) 3.7 % 02/26/25 00:50 Baso % (Auto) 0.6 % 02/26/25 00:50 Neut # (Auto) 3.54 10^3/uL (1.8-7.7) 02/26/25 00:50 Lymph # (Auto) 0.7 10^3/uL (0.8-4.8) L 02/26/25 00:50 [place] # (Auto) 0.3 10^3/uL (0.2-0.9) 02/26/25 00:50 Eos # (Auto) 0.2 10^3/uL (0.0-0.8) 02/26/25 00:50 Baso # (Auto) 0.0 10^3/uL (0.0-0.1) 02/26/25 00:50 Nucleated RBC % (auto) 0 % 02/26/25 00:50 Nucleated RBCs # 0.0 /100WBC 02/26/25 00:50 PT 15.10 SECONDS (12.1-14.9) H 02/26/25 00:50 INR 1.11 (0.8-1.2) 02/26/25 00:50 Specimen Type Venous 02/26/25 06:08 Emigdio Test N/a 02/26/25 06:08 VBG pH 7.45 (7.32-7.42) H 02/26/25 06:08 VBG pCO2 39.6 mmHg (41-51) L 02/26/25 06:08 VBG pO2 70.6 mmHg (25-40) H 02/26/25 06:08 VBG HCO3 27.4 mmol/L (24-28) 02/26/25 06:08 VBG Base Excess 3.1 mmol/L (-3.0-3.0) H 02/26/25 06:08 VBG Hematocrit 24.4 % (42-52) L 02/26/25 06:08 O2 Delivery Device Nc 02/26/25 06:08 O2 Liters/Min 3.0 % 02/26/25 06:08 Stock Dealer ID [email or web address] 02/26/25 06:08 Sodium 137 mmol/L (136-145) 02/28/25 02:51 Potassium 4.3 mmol/L (3.5-5.1) 02/28/25 02:51 Chloride 100 mmol/L (98-107) 02/28/25 02:51 Carbon Dioxide 26 mmol/L (22-29) 02/28/25 02:51 Anion Gap 15.3 (5-19) 02/28/25 02:51 BUN 37 mg/dL (8-23) H 02/28/25 02:51 Creatinine 1.8 mg/dL (0.7-1.2) H 02/28/25 02:51 GFR Calculation Not Reportable 02/28/25 02:51 Glucose 117 mg/dL (65-115) H 02/28/25 02:51 POC Glucose 151 mg/dL (70-110) H 02/28/25 06:20 Calculated Osmolality 294 mOsm/kg (285-295) 02/28/25 02:51 Calcium 8.9 mg/dL (8.5-10.5) 02/28/25 02:51 Phosphorus 4.9 mg/dL (2.5-4.5) H 02/27/25 02:52 Magnesium 2.1 mg/dL (1.7-2.3) 02/28/25 02:51 Iron 34 ug/dL (59-158) L 02/26/25 03:00 TIBC 220 mcg/dl 02/26/25 03:00 % Saturation 15.4 % (20-50) L 02/26/25 03:00 Unsat Iron Binding 186 ug/dL (112-347) 02/26/25 03:00 Lactate Dehydrogenase 270 U/L (135-225) H 02/26/25 06:08 Troponin T Baseline 71 ng/L (0-15) H 02/26/25 00:50 Troponin T 120 Minute 80.36 ng/L (0-15) H 02/26/25 03:00 Delta Troponin T 9.36 ABS# (0-10) 02/26/25 03:00 Troponin T Hi Sens 6Hr 95.54 ng/L (0-15) H 02/26/25 06:08 Troponin T Hi Sens 6Hr Delta 24.54 ng/L (0-12) H* 02/26/25 06:08 NT-Pro-B Natriuret Pep 9737 pg/mL (0-450) H 02/26/25 00:50 Total Protein 5.6 g/dL (6.6-8.7) L 02/26/25 06:08 Urine Color Yellow (Yellow) 02/26/25 04:53 Urine Appearance Clear (CLEAR) 02/26/25 04:53 Urine pH 7 (5-7) 02/26/25 04:53 Ur Specific [place] 1.007 (1.005-1.030) 02/26/25 04:53 Urine Protein 1+ (Negative) H 02/26/25 04:53 Urine Glucose (UA) Norm (Normal) 02/26/25 04:53 Urine Ketones Negative (Negative) 02/26/25 04:53 Urine Blood Neg (Negative) 02/26/25 04:53 Urine Nitrate Negative (Negative) 02/26/25 04:53 Urine Bilirubin Neg (Negative) 02/26/25 04:53 Urine Urobilinogen 1 mg/dL (Negative) H 02/26/25 04:53 Ur Leukocyte Esterase 1+ (Negative) H 02/26/25 04:53 Urine RBC 0-4 /hpf (0-2) H 02/26/25 04:53 Urine WBC 11-20 /hpf (0-5) H 02/26/25 04:53 Ur Squamous Epith Cells 0-4 /hpf (0-5) H 02/26/25 04:53 Amorphous Sediment Not Reportable 02/26/25 04:53 Urine Bacteria None /hpf (NONE) 02/26/25 04:53 Fine Granular Casts 2.46 /lpf 02/26/25 04:53 Fluid Color Yellow 02/26/25 13:30 Fluid Appearance Clear 02/26/25 13:30 Fluid WBC 317 /uL 02/26/25 13:30 Fluid RBC 0 10^3/uL 02/26/25 13:30 Fluid Hematocrit 0.0 % 02/26/25 13:30 Fld Polynuclear WBCs # 0.008 02/26/25 13:30 Fld Polynuclear WBCs % 2.500 % 02/26/25 13:30 Fl Mononucl WBCs #(Auto) 0.309 02/26/25 13:30 Fl Mononuclear % Auto 97.500 % 02/26/25 13:30 Fld Crystal Laterality Unk 02/26/25 13:30 Fluid Albumin 2.1 g/dL 02/26/25 13:30 Fluid Creatinine 1.66 (0.7-1.2) H 02/26/25 13:30 Pleural pH 7.50 (6.5-7.5) 02/26/25 13:30 Pleural Total Protein 3.3 g/dL 02/26/25 13:30 Pleural LDH 125 U/L 02/26/25 13:30 Pleural Glucose 204.0 mg/dL 02/26/25 13:30 Pleural Triglycerides 18 mg/dL 02/26/25 13:30 Micro: Microbiology 02/26/25 13:30 Gram Stain - Final Pleural Fluid 02/26/25 04:53 Urine Culture - Preliminary Urine,Clean Catch Strep species, gamma-hemolytic A&P Assessment and plan (1) Acute on chronic heart failure with preserved ejection fraction: Possibly from the atrial fibrillation/diastolic dysfunction. Continue the IV diuresis. I may go ahead and do a ahead and do a limited 2D echocardiogram to reevaluate the LV function and decide on further management. The echocardiogram revealed hypokinetic apical septum with a dyskinetic apical inferior wall segment. These wall motion abnormalities appear to be new compared to EKG from last year. To further evaluate the coronary status, a Myocardial perfusion imaging would be appropriate. (2) S/P femoral-popliteal bypass surgery: Currently asymptomatic. Status post [id number] amputation on the left side. Continue on the current management (3) Atrial fibrillation: Patient had the ablation at the [facility], last month. May continue on the oral anticoagulation for the time being (4) Carotid stenosis, bilateral: Currently asymptomatic. May continue on the current management. (5) HTN (hypertension), benign: Blood pressure is in the normal range-low normal side. Will continue on the current medications. (6) Elevated troponin: Normal echocardiogram, possibility of underlying coronary ischemia causing this is a consideration. To further evaluate, a Myocardial perfusion imaging would be appropriate. (7) Pleural effusion: Most likely from the heart failure. Status post thoracentesis. Clinically it is improving. Patient is remaining afebrile. Plan May schedule the patient for a Myocardial perfusion imaging tomorrow. Based on the results, further recommendations will be made. May continue the current management for the time being. PDMP PDMP Reviewed: Not Reviewed Attestations 2 Medical Necessity Statement*: Patient requires continued hospital stay for close monitoring and further management Coding Level of Care Code 09476 Diagnoses Acute on chronic heart failure with preserved ejection fraction I50.33 S/P femoral-popliteal bypass surgery Z95.828 Persistent atrial fibrillation I48.19 Atrial fibrillation type: persistent (not longstanding) Carotid stenosis, bilateral I65.23 HTN (hypertension), benign I10 Elevated troponin R79.89 Pleural effusion J90
[2025-02-28] MEDS: ATORVASTATIN 10 MG TABLET 20 MG PO (09:47)
[2025-02-28] MEDS: insulin glargine 100 units/1 mL 20 UNIT SUBCUT ×2 (09:47→17:26)
[2025-02-28] MEDS: nicotine 21 mg Patch 1 PATCH TRANSDERMA (09:47)
[2025-02-28] MEDS: gabapentin 100 mg Capsule 200 MG PO ×3 (09:47→20:53)
[2025-02-28] MEDS: metoprolol succinate ER (24 HR) 50 mg Tablet PO (09:48)
[2025-02-28] MEDS: metOLazone 5 MG Tablet PO (10:14)
[2025-02-28 11:09] LABS: Glucose Point of Care 261 mg/dL (70-110)
--- NOTE | 2025-02-28 11:34 | USCV_ITS ---
Ashvin Hickey Age: 79 Gender: M : 1945 Exam Date: 02/28/2025 08:50 Ordering Phys: Gloria Lucas MD ([email or web address]) Technologist: Lamonte Guadarrama Exam Location: [facility] [place] Indication: chf exacerbation BP: 111 / 59 HR: Rhythm: Sinus Technical Quality: Adequate MEASUREMENTS (Male / Female) Normal Values 2D ECHO LV Diastolic Diameter PLAX 4.4 cm 4.2 - 5.9 / 3.9 - 5.3 cm IVS Diastolic Thickness 1.8 cm 0.6 - 1.0 / 0.6 - 0.9 cm IVS Systolic Thickness 1.7 cm LVPW Diastolic Thickness 1.7 cm 0.6 - 1.0 / 0.6 - 0.9 cm LVPW Systolic Thickness 2.8 cm LVOT Diameter 2.0 cm LV Ejection Fraction 2D Teich 57.7 % LV Ejection Fraction MOD 4C 57.6 % LV Ejection Fraction MOD 2C 55.2 % LV Ejection Fraction 2C AL 55.0 % LA Diameter 3.4 cm RA Systolic Volume 4C AL 53.9 ml RA Systolic Volume 4C MOD 54.0 ml LA Sys Volume AL 55.4 cm cubed LA Sys Volume Index AL 29.4 cm cubed/m squared Aorta at Sinotubular Diameter 2.4 cm IVC Diameter 1.6 cm M-MODE LA Ao Ratio MM 1.1 AV Cusp Separation MM 1.3 cm FINDINGS Left Ventricle Normal left ventricular size and systolic function, EF 57%. Mild left ventricular hypertrophy. No regional wall motion abnormalities. Hypokinetic apical septum and dyskinetic apical inferior wall segments. Right Ventricle Normal right ventricular size and systolic function. Right Atrium Normal right atrial size. Left Atrium Moderately increased left atrial size. Mitral Valve Mild mitral annular calcification. Aortic Valve Thickened aortic valve. Tricuspid Valve No gross abnormalities noted Pulmonic Valve Pulmonic valve not well visualized. Pericardium No pericardial effusion. Aorta Normal aortic annulus size. IVC Normal inferior vena cava. CONCLUSIONS Normal left ventricular size and systolic function, EF 57%. Mild left ventricular hypertrophy. No regional wall motion abnormalities. Hypokinetic apical septum and dyskinetic apical inferior wall segments. Moderately increased left atrial size. Mild mitral annular calcification. Thickened aortic valve. There is no pericardial effusion. There are no intracardiac masses. Compared to the study from 10/22/2023, wall motion abnormality appears to be new Dr Gloria Lucas MD FACC (Electronically Signed) Final Date: 28 February 2025 16:02 S
--- NOTE | 2025-02-28 13:23 | PM.PN ---
Subjective Subjective: seen this morning sitting up in recliner feeling better down to 2L nC Cr 1.8 today hb 8 today Vitals/I&O/Wt Last Vital Signs Temp 98.1 F 02/28/25 11:33 Pulse 97 02/28/25 11:33 Resp 18 02/28/25 11:33 BP 106/66 02/28/25 11:33 Pulse Ox 99 02/28/25 11:33 O2 Del Method Nasal Cannula 02/28/25 11:33 O2 Flow Rate 3 02/28/25 07:54 02/27/25 02/28/25 02/28/25 22:59 06:59 14:59 Intake Total 680 / 1800 840 / 840 Output Total 1250 / 1250 1200 / 2450 500 / 500 Balance -570 / 550 -1200 / -650 340 / 340 Weight last 48 hrs Weight 73.754 kg Weight 75.296 kg Physical Exam Narrative: General well-developed chronically ill-appearing male CV: Regular regular rhythm no loud murmur Lungs: Decreased bilateral air entry with mild crackles bilaterally bases. On 4 L nasal cannula at this time. Abdomen positive bowel sounds soft nontender he has a diastases ventral hernia Right calf trace to 1+ edema he has a left BKA no sore right foot with shoe removed no sores Mentation alert and oriented x 3 pleasant Data 02/26/25 00:50 02/28/25 02:51 Micro: Microbiology 02/26/25 13:30 Gram Stain - Final Pleural Fluid Body Fluid Culture - Preliminary 02/26/25 04:53 Urine Culture - Preliminary Urine,Clean Catch Strep species, gamma-hemolytic A&P Assessment and plan (1) Acute hypoxemic respiratory failure: Patient will be supported with oxygen for sats greater than 90%. Check venous blood gas in the morning consider BiPAP Patient will be diuresed with IV furosemide 40 mg twice a day Zaroxolyn 5 mg daily and spironolactone 25 mg twice a day. Monitor renal function (2) Acute on chronic heart failure with preserved ejection fraction: As above last EF 55 to 60% (3) Pleural effusion: Diurese as above. If need to proceed with thoracentesis will hold his rivaroxaban for 48 hours. Hold rivaroxaban for now and cover with subcu heparin (4) Nicotine dependence, cigarettes, with other nicotine-induced disorders: Start nicotine patch 21 mg daily. Patient was counseled regarding need for smoking cessation he has severe vascular disease. We also counseled that nicotine replacement still causes vascular disease so need to wean off the nicotine as well (5) Rheumatoid arthritis: Continue methotrexate and home Enbrel (6) High risk medication use: Rheumatoid arthritis medications noted (7) History of left above knee amputation: No stump ischemia found on exam (8) S/P right coronary artery (RCA) stent placement: Patient counseled regarding need for smoking cessation. Continue Plavix (9) Diabetes mellitus: Start sliding scale insulin and continue home Lantus 20 units twice a day. Start 1500-calorie ADA diet (10) Iron deficiency anemia: Patient reports iron deficiency. Will check iron studies (11) Bladder cancer: Will obtain urinalysis (12) Atrial fibrillation: Hold rivaroxaban for now (13) BPH loc w urin obs/LUTS: Continue tamsulosin (14) Carotid stenosis, bilateral: Patient counseled regarding smoking cessation Plan 02/27/2025 Discussed with cardiology today. Patient is status post thoracentesis. Restarted rivaroxaban and Plavix. ? Lights criteria: Effusion met criteria for being an exudate. However patient has been on diuretics at home. Not empyema ? Continue sliding scale insulin at moderate dose intensity. Continue Lantus 20 twice a day Echocardiogram ordered. Results are pending. ? Patient did have an ablation done last month for atrial fibrillation at [facility]. Continue Xarelto. Elevated troponin most likely secondary to demand ischemia type II MD. Will consider stress testing as an outpatient. Continue Lasix 60 IV 3 times daily. Check BMP in AM. Creatinine 1.8. will request records from EP at [facility] 02/28/2025 continue plavix and xarelto continue glucose control continue lasix per cardio recommendations cr 1.8 today does have atelectasis on right side, pt's states he has hx of collapsed lung from prior will need pulmonary referral at discharge hold lisinopril imdur 60, metoprolol succinate 50 daily continue metolazone PDMP PDMP Reviewed: Not Reviewed Attestations Medical Necessity Statement*: requires continued diuresis Diagnoses Acute hypoxemic respiratory failure J96.01 Acute on chronic heart failure with preserved ejection fraction I50.33 Pleural effusion J90 Nicotine dependence, cigarettes, with other nicotine-induced disorders F17.218 Rheumatoid arthritis M06.9 High risk medication use Z79.899 History of left above knee amputation Z89.612 S/P right coronary artery (RCA) stent placement Z95.5 Type 2 diabetes mellitus with hyperglycemia, with long-term current use of insulin E11.65; Z79.4 Diabetes mellitus type: type 2 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
[2025-02-28 13:50] LABS: Basophils % 0.8 %; Eosinophils # 0.3 10^3/uL (0.0-0.8); Eosinophils % 5.6 %; Lymphocytes # 1.5 10^3/uL (0.8-4.8); Lymphocytes % 29.9 %; Mean Corpuscular HGB Conc 30.4 g/dL (30-55); Mean Corpuscular Hemoglobin 33.6 pg (27-33); Mean Corpuscular Volume 110.7 fl (82-101); Mean Platelet Volume 10.7 fL (7.4-10.4); Monocytes # 1.2 10^3/uL (0.2-0.9); Monocytes % 24.8 %; Neutrophils % 37.9 %; Nucleated Red Blood Cells % 0 %; Platelet Count 257 10^3/cmm (157-399); Red Blood Count 2.44 10^6/uL (3.85-5.65); Red Cell Distribution Width 20.4 % (12.1-15.1); White Blood Count 5.01 10^3/uL (3.29-11.43)
[2025-02-28] MEDS: ETANERCEPT 50 MG 50 EACH SUBCUT (15:59)
--- NOTE | 2025-02-28 16:43 | ECG_ITS ---
Musations Test Date: 2025-03-01 Pat Name: Ashvin Hickey Department: Room: 259 Gender: Male [employer]person [employer]: : 1945 Requested By: Gloria Lucas Order Number: [id number] Arvind MD: Gloria Lucas M.D. Interpretive Statements Lung unchanged pre/post procedure Intraprocedure shortess of breath Symptoms resoled by discharge PROCEDURE: At the baseline, the EKG revealed 100% V paced rhythm the baseline heart was 90 bpm with a blood pressue of 138/83mm of Hg Lexiscan was infused over a period of 20 seconds. A total of 0.4 milligrams of Lexiscan was infused. The stress phase was continued for a total of 5 minutes. Heart rate at the end of the stress phase was 90 bpm with a blood pressure 111/68 mm of Hg. The EKG at the peak infusion revealed no significant changes. Sestamibi was injected 20 seconds after the Lexiscan infusion. Heart rate at the end of the recovery phase was 94 bpm with a blood pressure of 96/60 mm of Hg. CONCLUSION: 1. The EKG response to Lexiscan infusion is uninterpretable due to the baseline changes 2. No LexiScan induced chest pain or cardiac arrhythmia 3. Normal blood pressure and heart rate response 4. Sestamibi/sestamibi perfusion scan pending; see separate report. Electronically Signed On 03-08-2025 17:07:10 CDT by Gloria Lucas M.D. [email or web address]
[2025-02-28 16:55] LABS: Glucose Point of Care 329 mg/dL (70-110)
[2025-02-28] MEDS: rivaroxaban 10 mg Tablet 20 MG PO (17:26)
[2025-02-28] MEDS: tamsulosin 0.4 mg Capsule PO (17:26)
[2025-02-28] MEDS: spironolactone 25 mg Tablet PO (17:26)
[2025-02-28 20:34] LABS: Glucose Point of Care 327 mg/dL (70-110)
[2025-02-28] MEDS: pantoprazole DR 40 mg Tablet PO (20:53)
[2025-02-28] MEDS: cetirizine 10 mg Tablet PO (20:53)
[2025-03-01] VITALS (9 sets, daily range): BP systolic 107–137; BP diastolic 63–68; PULSE 90–98; RESP 16–18; TEMP 36.4–36.8; O2SAT 90–98
[2025-03-01 05:01] LABS: Basophils % 0.4 %; Eosinophils # 0.3 10^3/uL (0.0-0.8); Eosinophils % 4.8 %; Hematocrit 26.4 % (37-53); Lymphocytes # 1.7 10^3/uL (0.8-4.8); Lymphocytes % 24.1 %; Mean Corpuscular HGB Conc 30.7 g/dL (30-55); Mean Corpuscular Hemoglobin 33.2 pg (27-33); Mean Corpuscular Volume 108.2 fl (82-101); Mean Platelet Volume 10.4 fL (7.4-10.4); Monocytes # 1.7 10^3/uL (0.2-0.9); Monocytes % 24.2 %; Neutrophils # 3.23 10^3/uL (1.8-7.7); Neutrophils % 45.1 %; Nucleated Red Blood Cells % 0 %; Platelet Count 257 10^3/cmm (157-399); Red Blood Count 2.44 10^6/uL (3.85-5.65); Red Cell Distribution Width 19.9 % (12.1-15.1); White Blood Count 7.15 10^3/uL (3.29-11.43)
[2025-03-01] MEDS: multivitamin therapeutic Tablet 1 TAB PO (05:06)
[2025-03-01] MEDS: ferrous sulfate EC 325 mg Tablet PO (05:06)
[2025-03-01] MEDS: duloxetine 20 mg Capsule PO (05:06)
[2025-03-01] MEDS: folic acid 1 mg Tablet PO (05:06)
[2025-03-01] MEDS: clopidogrel 75 mg Tablet PO (05:06)
[2025-03-01 05:34] LABS: Anion Gap 15.7 (5-19); Blood Urea Nitrogen 40 mg/dL (8-23); Calcium 8.6 mg/dL (8.5-10.5); Carbon Dioxide 26 mmol/L (22-29); Chloride 102 mmol/L (98-107); Glucose 63 mg/dL (65-115); Osmolality Calculated 296 mOsm/kg (285-295); Potassium 4.7 mmol/L (3.5-5.1); Sodium 139 mmol/L (136-145)
[2025-03-01 06:51] LABS: Glucose Point of Care 99 mg/dL (70-110)
[2025-03-01] MEDS: regadenoson 0.4 Mg/5 ml Syringe IVP (07:15)
--- NOTE | 2025-03-01 07:17 | PM.PN ---
Subjective Subjective: Patient had a Myocardial perfusion imaging today. Was found to have moderate area of fixed defect with small areas of reversible defect suggesting myocardial scarring with possible ezra-infarction ischemia Patient has not had any chest pain since the hospital admission. He is still with feeling weak and have some dyspnea on exertion. The orthopnea significantly improved. Medications: Medication Review Details: Current Medications Acetaminophen (Acetaminophen 325 Mg Tablet) 650 mg PO Q6H PRN PRN Reason: Mild/Mod Pain Or Temp >/= 101 Last Admin: 02/26/25 05:06 Dose: 650 mg Aminophylline (Aminophylline 25 Mg/Ml Sdv 20 Ml) 25 mg IVP Q2M PRN PRN Reason: see dose instructions Stop: 03/02/25 06:44 Atorvastatin Calcium (Atorvastatin 10 Mg Tablet) 20 mg PO DAILY [facility] Last Admin: 02/28/25 09:47 Dose: 20 mg Cetirizine HCl (Cetirizine 10 Mg Tablet) 10 mg PO BEDTIME [facility] Last Admin: 02/28/25 20:53 Dose: 10 mg Clopidogrel Bisulfate (Clopidogrel 75 Mg Tablet) [facility] Last Admin: 03/01/25 05:06 Dose: 75 mg Duloxetine HCl (Duloxetine 20 Mg Capsule) 20 mg PO QAM [facility] Last Admin: 03/01/25 05:06 Dose: 20 mg Ferrous Sulfate (Ferrous Sulfate Ec 325 Mg Tablet) 325 mg PO QAM [facility] Last Admin: 03/01/25 05:06 Dose: 325 mg Folic Acid (Folic Acid 1 Mg Tablet) 1 mg PO QAM [facility] Last Admin: 03/01/25 05:06 Dose: 1 mg Gabapentin (Gabapentin 100 Mg Capsule) 200 mg PO TID [facility] Last Admin: 02/28/25 20:53 Dose: 200 mg Glucagon (Glucagon 1 Mg/Ml Kit 1 Ml) 1 mg IM ONCE PRN; Protocol PRN Reason: Adult Acute Hypoglycemia Nursing Prot. Hydralazine HCl (Hydralazine 50 Mg Tablet) 50 mg PO TID [facility] On Hold: 02/27/25 07:13 Last Admin: 02/26/25 21:25 Dose: 50 mg Dextrose (D5w) 500 mls @ 0 mls/hr IV ONCE PRN; Protocol PRN Reason: Adult Acute Hypoglycemia Prot Dextrose (D10w) 125 mls @ 750 mls/hr IV PRN PRN; Protocol PRN Reason: Adult Acute Hypoglycemia Nursing Protocol Dextrose (D10w) 250 mls @ 1,000 mls/hr IV PRN PRN; Protocol PRN Reason: Adult Acute Hypoglycemia Nursing Protocol Insulin Glargine (Insulin Glargine 100 Units/1 Ml) 20 unit SUBCUT BID [facility] Last Admin: 02/28/25 17:26 Dose: 20 unit Insulin Human Lispro (Insulin Lispro 100 Unit/1 Ml) 0 unit SUBCUT WM&BEDTIME [facility]; Protocol Last Admin: 02/28/25 20:53 Dose: 10 unit Isosorbide Mononitrate (Isosorbide Mononitrate Er 60 Mg Tablet) 60 mg PO DAILY [facility] Last Admin: 02/28/25 09:49 Dose: Not Given Lisinopril (Lisinopril 20 Mg Tablet) 40 mg PO QAM [facility] On Hold: 02/27/25 07:14 Last Admin: 02/26/25 11:17 Dose: Not Given Metolazone (Metolazone 5 Mg Tablet) 5 mg PO DAILY [facility] Last Admin: 02/28/25 10:14 Dose: 5 mg Metoprolol Succinate (Metoprolol Succinate Er (24 Hr) 50 Mg Tablet) 50 mg PO DAILY [facility] Last Admin: 02/28/25 09:48 Dose: 50 mg Multivitamins Therapeutic (Multivitamin Therapeutic Tablet) 1 tab PO QAM [facility] Last Admin: 03/01/25 05:06 Dose: 1 tab Nicotine (Nicotine 21 Mg Patch) 1 patch TRANSDERMA DAILY [facility] Last Admin: 02/28/25 09:47 Dose: 1 patch Nitroglycerin (Nitroglycerin 0.4 Mg Sublingual Tablet) 0.4 mg SUBLINGUAL Q5M PRN PRN Reason: CHEST PAIN Stop: 03/02/25 06:44 Non-Formulary Medication (Methotrexate Sodium) 10 mg PO Q7D [facility] Non-Formulary Medication (Etanercept) 50 mg SUBCUT WEEKLY [facility] Last Admin: 02/28/25 15:59 Dose: 50 mg Ondansetron HCl (Ondansetron 2 Mg/Ml Sdv 2 Ml) 4 mg IVP Q8H PRN PRN Reason: vomiting, or N/V if npo Pantoprazole Sodium (Pantoprazole Dr 40 Mg Tablet) 40 mg PO BEDTIME [facility] Last Admin: 02/28/25 20:53 Dose: 40 mg Potassium Chloride (Potassium Chloride Er 20 Meq Tablet) 20 meq PO DAILY [facility] Last Admin: 02/28/25 09:48 Dose: 20 meq Rivaroxaban (Rivaroxaban 10 Mg Tablet) 20 mg PO QPM [facility] Last Admin: 02/28/25 17:26 Dose: 20 mg Senna (Sennosides 8.6 Mg Tablet) 17.2 mg PO BEDTIME PRN PRN Reason: CONSTIPATION Spironolactone (Spironolactone 25 Mg Tablet) 25 mg PO BID [facility] Last Admin: 02/28/25 17:26 Dose: 25 mg Sucralfate (Sucralfate 1 Gm Tablet) 1 gm PO QID PRN PRN Reason: UNKNOWN Tamsulosin HCl (Tamsulosin 0.4 Mg Capsule) 0.4 mg PO QPM [facility] Last Admin: 02/28/25 17:26 Dose: 0.4 mg Vitals/I&O/Wt Last Vital Signs Temp 98.2 F 03/01/25 03:49 Pulse 94 03/01/25 04:31 Resp 16 03/01/25 03:49 BP 131/67 03/01/25 03:49 Pulse Ox 90 03/01/25 03:49 O2 Del Method Nasal Cannula 03/01/25 03:49 O2 Flow Rate 1 02/28/25 19:54 02/28/25 03/01/25 03/01/25 22:59 06:59 14:59 Intake Total 480 / 1320 480 / 1800 Output Total 200 / 1475 725 / 2200 Balance 280 / -155 -245 / -400 Weight last 48 hrs Weight 160 lb 14.4 oz Weight 162 lb 9.6 oz Physical Exam Narrative: GENERAL: The patient is alert and oriented times three. Not in any acute distress. HEENT: No significant pallor, icterus or lymphadenopathy.Oral cavity: There are no mucous membrane lesions. NECK: Trachea appears to be central. No masses noted. No JVD or thyromegaly appreciated. RESPIRATORY: Chest is symmetrical. No intercostals muscle retraction or any accessory muscle activation. There is no chest wall tenderness. Breath sounds are heard bilaterally. Breath sounds are slightly diminished at the right base. BREASTS: Deferred. HEART: The heart sounds are normal. No S3 or S4. Short systolic murmur grade 3 or 6 in the left sternal border. No diastolic murmurs. No pericardial rub ABDOMEN: No vessel pulsations or distention. No tenderness. No organomegaly appreciated. Bowel sounds are normally heard. : Deferred. RECTAL: Deferred. LYMPHATIC: No lymphadenopathy noted in the neck. EXTREMITIES:1- 2+ edema of the right lower extremity. MUSCULOSKELETAL: Bony amputation of the left side. 2+ edema of the right lower extremity. Extremely weak dorsalis pedis and posterior tibial pulses. SKIN: There are no significant rashes or ecchymosis NEUROPSYCHIATRIC: The patient is alert and oriented x3. Appears to be in a good mood. No tremors or rigidity noted. Data 03/01/25 09:08 03/01/25 04:40 Other Labs: Laboratory Last Values WBC 7.15 10^3/uL (3.29-11.43) 03/01/25 04:40 RBC 2.44 10^6/uL (3.85-5.65) L 03/01/25 04:40 Hgb 8.10 g/dL (11.27-16.99) L 03/01/25 04:40 Hct 26.4 % (37-53) L 03/01/25 04:40 MCV 108.2 fl (82-101) H 03/01/25 04:40 MCH 33.2 pg (27-33) H 03/01/25 04:40 MCHC 30.7 g/dL (30-55) 03/01/25 04:40 RDW 19.9 % (12.1-15.1) H 03/01/25 04:40 Plt Count 257 10^3/cmm (157-399) 03/01/25 04:40 MPV 10.4 fL (7.4-10.4) 03/01/25 04:40 Neut % (Auto) 45.1 % 03/01/25 04:40 Lymph % (Auto) 24.1 % 03/01/25 04:40 [place] % (Auto) 24.2 % 03/01/25 04:40 Eos % (Auto) 4.8 % 03/01/25 04:40 Baso % (Auto) 0.4 % 03/01/25 04:40 Neut # (Auto) 3.23 10^3/uL (1.8-7.7) 03/01/25 04:40 Lymph # (Auto) 1.7 10^3/uL (0.8-4.8) 03/01/25 04:40 [place] # (Auto) 1.7 10^3/uL (0.2-0.9) H 03/01/25 04:40 Eos # (Auto) 0.3 10^3/uL (0.0-0.8) 03/01/25 04:40 Baso # (Auto) 0.0 10^3/uL (0.0-0.1) 03/01/25 04:40 Nucleated RBC % (auto) 0 % 03/01/25 04:40 Nucleated RBCs # 0.0 /100WBC 03/01/25 04:40 PT 15.10 SECONDS (12.1-14.9) H 02/26/25 00:50 INR 1.11 (0.8-1.2) 02/26/25 00:50 Specimen Type Venous 02/26/25 06:08 Emigdio Test N/a 02/26/25 06:08 VBG pH 7.45 (7.32-7.42) H 02/26/25 06:08 VBG pCO2 39.6 mmHg (41-51) L 02/26/25 06:08 VBG pO2 70.6 mmHg (25-40) H 02/26/25 06:08 VBG HCO3 27.4 mmol/L (24-28) 02/26/25 06:08 VBG Base Excess 3.1 mmol/L (-3.0-3.0) H 02/26/25 06:08 VBG Hematocrit 24.4 % (42-52) L 02/26/25 06:08 O2 Delivery Device Nc 02/26/25 06:08 O2 Liters/Min 3.0 % 02/26/25 06:08 Wardrobe Supervisor ID [email or web address] 02/26/25 06:08 Sodium 139 mmol/L (136-145) 03/01/25 04:40 Potassium 4.7 mmol/L (3.5-5.1) 03/01/25 04:40 Chloride 102 mmol/L (98-107) 03/01/25 04:40 Carbon Dioxide 26 mmol/L (22-29) 03/01/25 04:40 Anion Gap 15.7 (5-19) 03/01/25 04:40 BUN 40 mg/dL (8-23) H 03/01/25 04:40 Creatinine 1.8 mg/dL (0.7-1.2) H 03/01/25 04:40 GFR Calculation Not Reportable 03/01/25 04:40 Glucose 63 mg/dL (65-115) L 03/01/25 04:40 POC Glucose 99 mg/dL (70-110) 03/01/25 06:13 Calculated Osmolality 296 mOsm/kg (285-295) H 03/01/25 04:40 Calcium 8.6 mg/dL (8.5-10.5) 03/01/25 04:40 Phosphorus 4.9 mg/dL (2.5-4.5) H 02/27/25 02:52 Magnesium 2.0 mg/dL (1.7-2.3) 03/01/25 04:40 Iron 34 ug/dL (59-158) L 02/26/25 03:00 TIBC 220 mcg/dl 02/26/25 03:00 % Saturation 15.4 % (20-50) L 02/26/25 03:00 Unsat Iron Binding 186 ug/dL (112-347) 02/26/25 03:00 Lactate Dehydrogenase 270 U/L (135-225) H 02/26/25 06:08 Troponin T Baseline 71 ng/L (0-15) H 02/26/25 00:50 Troponin T 120 Minute 80.36 ng/L (0-15) H 02/26/25 03:00 Delta Troponin T 9.36 ABS# (0-10) 02/26/25 03:00 Troponin T Hi Sens 6Hr 95.54 ng/L (0-15) H 02/26/25 06:08 Troponin T Hi Sens 6Hr Delta 24.54 ng/L (0-12) H* 02/26/25 06:08 NT-Pro-B Natriuret Pep 9737 pg/mL (0-450) H 02/26/25 00:50 Total Protein 5.6 g/dL (6.6-8.7) L 02/26/25 06:08 Urine Color Yellow (Yellow) 02/26/25 04:53 Urine Appearance Clear (CLEAR) 02/26/25 04:53 Urine pH 7 (5-7) 02/26/25 04:53 Ur Specific [place] 1.007 (1.005-1.030) 02/26/25 04:53 Urine Protein 1+ (Negative) H 02/26/25 04:53 Urine Glucose (UA) Norm (Normal) 02/26/25 04:53 Urine Ketones Negative (Negative) 02/26/25 04:53 Urine Blood Neg (Negative) 02/26/25 04:53 Urine Nitrate Negative (Negative) 02/26/25 04:53 Urine Bilirubin Neg (Negative) 02/26/25 04:53 Urine Urobilinogen 1 mg/dL (Negative) H 02/26/25 04:53 Ur Leukocyte Esterase 1+ (Negative) H 02/26/25 04:53 Urine RBC 0-4 /hpf (0-2) H 02/26/25 04:53 Urine WBC 11-20 /hpf (0-5) H 02/26/25 04:53 Ur Squamous Epith Cells 0-4 /hpf (0-5) H 02/26/25 04:53 Amorphous Sediment Not Reportable 02/26/25 04:53 Urine Bacteria None /hpf (NONE) 02/26/25 04:53 Fine Granular Casts 2.46 /lpf 02/26/25 04:53 Fluid Color Yellow 02/26/25 13:30 Fluid Appearance Clear 02/26/25 13:30 Fluid WBC 317 /uL 02/26/25 13:30 Fluid RBC 0 10^3/uL 02/26/25 13:30 Fluid Hematocrit 0.0 % 02/26/25 13:30 Fld Polynuclear WBCs # 0.008 02/26/25 13:30 Fld Polynuclear WBCs % 2.500 % 02/26/25 13:30 Fl Mononucl WBCs #(Auto) 0.309 02/26/25 13:30 Fl Mononuclear % Auto 97.500 % 02/26/25 13:30 Fld Crystal Laterality Unk 02/26/25 13:30 Fluid Albumin 2.1 g/dL 02/26/25 13:30 Fluid Creatinine 1.66 (0.7-1.2) H 02/26/25 13:30 Pleural pH 7.50 (6.5-7.5) 02/26/25 13:30 Pleural Total Protein 3.3 g/dL 02/26/25 13:30 Pleural LDH 125 U/L 02/26/25 13:30 Pleural Glucose 204.0 mg/dL 02/26/25 13:30 Pleural Triglycerides 18 mg/dL 02/26/25 13:30 Micro: Microbiology 02/26/25 04:53 Urine Culture - Final Urine,Clean Catch Enterococcus faecalis 02/26/25 13:30 Gram Stain - Final Pleural Fluid Body Fluid Culture - Preliminary A&P Assessment and plan (1) Elevated troponin: Doses of Myocardial perfusion imaging were discussed with the patient. For further evaluation of his coronary status, he requires a cardiac catheterization. however In view of his chronic kidney disease, he carries a higher risk for contrast-induced nephropathy. since the patient is remaining stable with no chest pain and also since the area of ischemia is small, and shared decision was made to hold off on any invasive procedures at this point. It was decided to optimize medical treatment (2) Acute on chronic heart failure with preserved ejection fraction: The heart failure is getting compensated. may continue with current management. (3) S/P femoral-popliteal bypass surgery: Currently asymptomatic. Status post [id number] amputation on the left side. Continue on the current management (4) Atrial fibrillation: Patient had the ablation at the [facility], last month. May continue on the oral anticoagulation for the time being (5) Carotid stenosis, bilateral: Currently asymptomatic. May continue on the current management. (6) HTN (hypertension), benign: Blood pressure is in the normal range-low normal side. Will continue on the current medications. (7) Pleural effusion: Most likely from the heart failure. Status post thoracentesis. Clinically it is improving. Patient is remaining afebrile. Plan if the patient continues to remain stable, he may be discharged home on the current medications. Disposition as per the primary. A repeat chest x-ray may be appropriate in the morning PDMP PDMP Reviewed: Not Reviewed Attestations Medical Necessity Statement*: deferred to the primary Coding Level of Care Code 27455 Diagnoses Elevated troponin R79.89 Acute on chronic heart failure with preserved ejection fraction I50.33 S/P femoral-popliteal bypass surgery Z95.828 Persistent atrial fibrillation I48.19 Atrial fibrillation type: persistent (not longstanding) Carotid stenosis, bilateral I65.23 HTN (hypertension), benign I10 Pleural effusion J90
[2025-03-01] MEDS: potassium chloride ER 20 mEq Tablet PO (08:54)
[2025-03-01] MEDS: gabapentin 100 mg Capsule 200 MG PO ×3 (08:54→20:06)
[2025-03-01] MEDS: ATORVASTATIN 10 MG TABLET 20 MG PO (08:55)
[2025-03-01] MEDS: levofloxacin-dextrose 5 % 500 MG/100 ML PREMIX 100 MG IV (08:55)
[2025-03-01] MEDS: metOLazone 5 MG Tablet PO (08:56)
[2025-03-01] MEDS: nicotine 21 mg Patch 1 PATCH TRANSDERMA (08:57)
[2025-03-01] MEDS: metoprolol succinate ER (24 HR) 50 mg Tablet PO (08:58)
[2025-03-01] MEDS: spironolactone 25 mg Tablet PO ×2 (08:58→18:32)
[2025-03-01] MEDS: isosorbide mononitrate ER 60 mg Tablet PO (08:58)
--- NOTE | 2025-03-01 10:18 | PC.SOCIAL ---
IMM Update pg 2 of IMM updated and reviewed w/ patient. Copy provided. Copy dated, initialed and placed in chart.
[2025-03-01 11:13] LABS: Glucose Point of Care 328 mg/dL (70-110)
[2025-03-01] MEDS: insulin lispro 100 unit/1 mL SUBCUT ×3 (11:53→20:56)
--- NOTE | 2025-03-01 11:54 | PM.PN ---
Subjective Subjective: seen this morning feels better on 2L nC returned from stress test Vitals/I&O/Wt Last Vital Signs Temp 97.5 F L 03/01/25 08:00 Pulse 92 03/01/25 08:00 Resp 18 03/01/25 08:00 BP 137/63 03/01/25 08:00 Pulse Ox 94 03/01/25 08:00 O2 Del Method Nasal Cannula 03/01/25 08:00 O2 Flow Rate 2 03/01/25 08:00 02/28/25 03/01/25 03/01/25 22:59 06:59 14:59 Intake Total 480 / 1320 480 / 1800 340 / 340 Output Total 200 / 1475 725 / 2200 Balance 280 / -155 -245 / -400 340 / 340 Weight last 48 hrs Weight 72.983 kg Weight 73.754 kg Physical Exam Narrative: General well-developed chronically ill-appearing male CV: Regular regular rhythm no loud murmur Lungs: Decreased bilateral air entry, clear to auscultation b/l, no wheezes no ronchi Abdomen positive bowel sounds soft nontender he has a diastases ventral hernia Right calf trace edema he has a left BKA no sore right foot with shoe removed no sores Mentation alert and oriented x 3 pleasant Data 03/01/25 09:08 03/01/25 04:40 Micro: Microbiology 02/26/25 13:30 Gram Stain - Final Pleural Fluid Body Fluid Culture - Preliminary 02/26/25 04:53 Urine Culture - Final Urine,Clean Catch Enterococcus faecalis A&P Assessment and plan (1) Acute hypoxemic respiratory failure: Patient will be supported with oxygen for sats greater than 90%. Check venous blood gas in the morning consider BiPAP Patient will be diuresed with IV furosemide 40 mg twice a day Zaroxolyn 5 mg daily and spironolactone 25 mg twice a day. Monitor renal function (2) Acute on chronic heart failure with preserved ejection fraction: As above last EF 55 to 60% (3) Pleural effusion: Diurese as above. If need to proceed with thoracentesis will hold his rivaroxaban for 48 hours. Hold rivaroxaban for now and cover with subcu heparin (4) Nicotine dependence, cigarettes, with other nicotine-induced disorders: Start nicotine patch 21 mg daily. Patient was counseled regarding need for smoking cessation he has severe vascular disease. We also counseled that nicotine replacement still causes vascular disease so need to wean off the nicotine as well (5) Rheumatoid arthritis: Continue methotrexate and home Enbrel (6) High risk medication use: Rheumatoid arthritis medications noted (7) History of left above knee amputation: No stump ischemia found on exam (8) S/P right coronary artery (RCA) stent placement: Patient counseled regarding need for smoking cessation. Continue Plavix (9) Diabetes mellitus: Start sliding scale insulin and continue home Lantus 20 units twice a day. Start 1500-calorie ADA diet (10) Iron deficiency anemia: Patient reports iron deficiency. Will check iron studies (11) Bladder cancer: Will obtain urinalysis (12) Atrial fibrillation: Hold rivaroxaban for now (13) BPH loc w urin obs/LUTS: Continue tamsulosin (14) Carotid stenosis, bilateral: Patient counseled regarding smoking cessation Plan 02/27/2025 Discussed with cardiology today. Patient is status post thoracentesis. Restarted rivaroxaban and Plavix. ? Lights criteria: Effusion met criteria for being an exudate. However patient has been on diuretics at home. Not empyema ? Continue sliding scale insulin at moderate dose intensity. Continue Lantus 20 twice a day Echocardiogram ordered. Results are pending. ? Patient did have an ablation done last month for atrial fibrillation at [facility]. Continue Xarelto. Elevated troponin most likely secondary to demand ischemia type II IA. Will consider stress testing as an outpatient. Continue Lasix 60 IV 3 times daily. Check BMP in AM. Creatinine 1.8. will request records from EP at [facility] 02/28/2025 continue plavix and xarelto continue glucose control continue lasix per cardio recommendations cr 1.8 today does have atelectasis on right side, pt's states he has hx of collapsed lung from prior will need pulmonary referral at discharge hold lisinopril imdur 60, metoprolol succinate 50 daily continue metolazone 03/01/2025 continue plavix and xarelto continue glucose control continue lasix per cardio recommendations cr 1.8 today pulmonary referral at discharge hypoglycemic this am check [id number] hold lantus going forward stress test today, await results PDMP PDMP Reviewed: Not Reviewed Attestations Medical Necessity Statement*: requires continued diuresis Coding Level of Care Code Acute Code for Chg Fwd Diagnoses Acute hypoxemic respiratory failure J96.01 Acute on chronic heart failure with preserved ejection fraction I50.33 Pleural effusion J90 Nicotine dependence, cigarettes, with other nicotine-induced disorders F17.218 Rheumatoid arthritis M06.9 High risk medication use Z79.899 History of left above knee amputation Z89.612 S/P right coronary artery (RCA) stent placement Z95.5 Type 2 diabetes mellitus with hyperglycemia, with long-term current use of insulin E11.65; Z79.4 Diabetes mellitus type: type 2 Diabetes mellitus ad terminal makeup operator insulin use: with alf use Diabetes mellitus complication status: with hyperglycemia Iron deficiency anemia D50.9 Malignant neoplasm of overlapping sites of bladder C67.8 Bladder location: overlapping sites Persistent atrial fibrillation I48.19 Atrial fibrillation type: persistent (not longstanding) BPH loc w urin obs/LUTS N40.1 Carotid stenosis, bilateral I65.23
[2025-03-01 12:24] LABS: Estmated Average Glucose 143; Hemoglobin A1C 6.6 % (4.0-6.0)
--- NOTE | 2025-03-01 16:43 | NMCV_ITS ---
NM cony perf SPECT r/s* [id number] Ashvin Hickey Age: 79 Gender: M : 1945 Exam Date: 03/01/2025 06:37 Ordering Phys: Gloria Lucas MD ([email or web address]) Technologist: LIZBETH Rodriguez Exam Location: [facility] Indications: cp STRESS TEST [facility] IMAGE PROTOCOL Rest/Stress 1 Lexiscan Day Radiopharmaceutical Dose (mCi) Administration Site Administered by Rest: Tc-99m 11 IV - left Sarina Price, FORESTRY PILOT Sestamibi antecubital Stress:Tc-99m 33 IV Sarina Meridagle, FORESTRY PILOT Sestamibi Rest: 01-Mar-2025 60 Discovery 630 Stress: 01-Mar-2025 30 Discovery 630 0.4mg Lexiscan. Supine position only as patient was unable to lay prone. The patient attempted to turn over in the prone postion but was unable to bring arms up onto the table to complete imaging. SPECT RESULTS Technical Quality: Good Raw Data Analysis: Normal Image Corrections: No attenuation or motion correction applied Summed Stress Score: 9 Summed Rest Score: 8 Summed Difference Score: 3 PERFUSION FINDINGS Moderate area of moderately decreased tracer uptake involving the basal and mid inferolateral, apical lateral, mid and apical inferior and LV apex. Some reversibility was noted at the apical lateral and mid inferolateral inferior region. FUNCTIONAL RESULTS (calculated via Gated SPECT) Stress Image LV EF (%): 41 Stress EDV (mL):150 TID: 1.02 Stress ESV (mL):88 FUNCTIONAL FINDINGS: Segmental wall motion analysis revealed somewhat dyskinetic LV apex. Ejection fraction 41% IMPRESSIONS 1. Myocardial perfusion imaging revealing moderate area of decreasedtracer uptake involving the inferolateral, inferior and apical regions with some reversibility suggesting myocardial scarring in distribution of the left circumflex artery/right coronary artery with small areas of ezra-infarction ischemia 2. Diminished LV ejection fraction 41%. 3. LV wall motion analysis revealing somewhat dyskinetic LV apex 4. Mildly dilated LV cavity Compared to the study from 09/18/2018, the ischemic burden is low (summed difference score of 3 versus 8) Dr Gloria Lucas MD [facility] (Electronically Signed) Final Date: 01 March 2025 12:43 S
[2025-03-01] MEDS: rivaroxaban 10 mg Tablet 20 MG PO (18:33)
[2025-03-01] MEDS: tamsulosin 0.4 mg Capsule PO (18:34)
[2025-03-01] MEDS: acetaminophen 325 mg Tablet 650 MG PO (20:05)
[2025-03-01] MEDS: pantoprazole DR 40 mg Tablet PO (20:06)
[2025-03-01] MEDS: cetirizine 10 mg Tablet PO (20:06)
[2025-03-01 20:32] LABS: Glucose Point of Care 334 mg/dL (70-110)
[2025-03-01 22:41] LABS: Glucose Point of Care 187 mg/dL (70-110)
[2025-03-02] VITALS (7 sets, daily range): BP systolic 121–160; BP diastolic 67–69; PULSE 91–99; RESP 16–18; TEMP 36.4–36.8; O2SAT 88–97
[2025-03-02] MEDS: folic acid 1 mg Tablet PO (05:11)
[2025-03-02] MEDS: duloxetine 20 mg Capsule PO (05:11)
[2025-03-02] MEDS: ferrous sulfate EC 325 mg Tablet PO (05:11)
[2025-03-02] MEDS: multivitamin therapeutic Tablet 1 TAB PO (05:11)
[2025-03-02] MEDS: clopidogrel 75 mg Tablet PO (05:11)
[2025-03-02 06:34] LABS: Glucose Point of Care 128 mg/dL (70-110)
[2025-03-02 06:49] LABS: Basophils # 0.1 10^3/uL (0.0-0.1); Basophils % 0.6 %; Eosinophils # 0.4 10^3/uL (0.0-0.8); Eosinophils % 4.3 %; Hematocrit 26.7 % (37-53); Lymphocytes # 2.2 10^3/uL (0.8-4.8); Lymphocytes % 21.8 %; Mean Corpuscular HGB Conc 30.3 g/dL (30-55); Mean Corpuscular Hemoglobin 32.7 pg (27-33); Mean Corpuscular Volume 107.7 fl (82-101); Mean Platelet Volume 10.2 fL (7.4-10.4); Monocytes # 2.1 10^3/uL (0.2-0.9); Neutrophils # 4.98 10^3/uL (1.8-7.7); Neutrophils % 50.1 %; Nucleated Red Blood Cells % 0 %; Platelet Count 269 10^3/cmm (157-399); Red Blood Count 2.48 10^6/uL (3.85-5.65); Red Cell Distribution Width 19.5 % (12.1-15.1); White Blood Count 9.95 10^3/uL (3.29-11.43)
[2025-03-02 07:13] LABS: Anion Gap 15.7 (5-19); Blood Urea Nitrogen 39 mg/dL (8-23); Calcium 8.8 mg/dL (8.5-10.5); Carbon Dioxide 24 mmol/L (22-29); Chloride 103 mmol/L (98-107); Glucose 104 mg/dL (65-115); Magnesium 2.2 mg/dL (1.7-2.3); Osmolality Calculated 296 mOsm/kg (285-295); Potassium 4.7 mmol/L (3.5-5.1); Sodium 138 mmol/L (136-145)
[2025-03-02] MEDS: ATORVASTATIN 10 MG TABLET 20 MG PO (08:17)
[2025-03-02] MEDS: nicotine 21 mg Patch 1 PATCH TRANSDERMA (08:17)
[2025-03-02] MEDS: isosorbide mononitrate ER 60 mg Tablet PO (08:17)
[2025-03-02] MEDS: spironolactone 25 mg Tablet PO (08:17)
[2025-03-02] MEDS: gabapentin 100 mg Capsule 200 MG PO (08:17)
[2025-03-02] MEDS: potassium chloride ER 20 mEq Tablet PO (08:17)
[2025-03-02] MEDS: metoprolol succinate ER (24 HR) 50 mg Tablet PO (08:18)
[2025-03-02] MEDS: metOLazone 5 MG Tablet PO (08:18)
[2025-03-02 11:03] LABS: Glucose Point of Care 249 mg/dL (70-110)
--- NOTE | 2025-03-02 11:31 | P.DS_ITS ---
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 Thoracentesis was performed. Empyema was ruled out. 1 L was removed. 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 He had initially for held his anticoagulation for thoracentesis. It was performed inpatient. He was originally scheduled for upcoming Saturday. Cardiology was consulted. Patient was diuresed. He had recently had ablation for atrial fibrillation at [facility]. Cardiology was consulted for elevated troponin which was thought to be secondary to demand ischemia type II PA. Outpatient stress test recommended. Patient to follow-up with cardiology outpatient to schedule stress test. Patient's hemoglobin A1c was rechecked and his Lantus was stopped. Home blood pressure medications were also optimized. Patient was given referral to pulmonology outpatient as well. Physical Exam Narrative: General well-developed chronically ill-appearing male CV: Regular regular rhythm no loud murmur Lungs: Decreased bilateral air entry, clear to auscultation b/l, no wheezes no ronchi Abdomen positive bowel sounds soft nontender Right calf trace edema he has a left BKA no sore right foot with shoe removed no sores Mentation alert and oriented x 3 pleasant Discharge Data Studies Completed and Pending Completed Studies During Hospitalization Category Date Time Status Cardiac Stress Test MIBI [Sestamibi Stress Test Request Exams 02/28/25 16:43 Draft ] Routine XR chest 1V portable [id number] Stat Exams 02/26/25 00:32 Completed XR chest 1V portable [id number] Stat Exams 02/26/25 14:59 Completed NM cony perf SPECT r/s* [id number] Routine Nuc Med 03/01/25 16:43 Completed CV. echo limited [id number] Routine Ultrasound 02/28/25 11:34 Completed US thoracentesis [id number] Urgent Ultrasound 02/26/25 10:14 Completed Pending at discharge Category Date Time Status Amylase, Pleural Fluid Routine Lab 02/26/25 13:30 Received Mycobacteria, Culture w/Fluor Routine Lab 02/26/25 13:30 Results VBG [Venous Blood Gas] Routine Lab 02/26/25 06:08 Results Cytology [PTH] Routine Pth 02/26/25 11:43 Received Radiology Impressions Thoracentesis Ultrasound 02/26/25 10:14 IMPRESSION: 1. Uncomplicated ultrasound-guided RIGHT thoracentesis. 2. 1000 cc clear yellow fluid removed 3. No pneumothorax post thoracentesis. Chest X-Ray 02/26/25 14:59 IMPRESSION: 1. Improved RIGHT pleural effusion postthoracentesis. No pneumothorax. 2. Persistent compressive atelectasis RIGHT midlung and RIGHT lower lobe. 3. Cardiomegaly. Laboratory Results WBC 9.95 10^3/uL (3.29-11.43) 03/02/25 05:58 RBC 2.48 10^6/uL (3.85-5.65) L 03/02/25 05:58 Hgb 8.10 g/dL (11.27-16.99) L 03/02/25 05:58 Hct 26.7 % (37-53) L 03/02/25 05:58 MCV 107.7 fl (82-101) H 03/02/25 05:58 MCH 32.7 pg (27-33) 03/02/25 05:58 MCHC 30.3 g/dL (30-55) 03/02/25 05:58 RDW 19.5 % (12.1-15.1) H 03/02/25 05:58 Plt Count 269 10^3/cmm (157-399) 03/02/25 05:58 MPV 10.2 fL (7.4-10.4) 03/02/25 05:58 Neut % (Auto) 50.1 % 03/02/25 05:58 Lymph % (Auto) 21.8 % 03/02/25 05:58 Centre % (Auto) 21.0 % 03/02/25 05:58 Eos % (Auto) 4.3 % 03/02/25 05:58 Baso % (Auto) 0.6 % 03/02/25 05:58 Neut # (Auto) 4.98 10^3/uL (1.8-7.7) 03/02/25 05:58 Lymph # (Auto) 2.2 10^3/uL (0.8-4.8) 03/02/25 05:58 Centre # (Auto) 2.1 10^3/uL (0.2-0.9) H 03/02/25 05:58 Eos # (Auto) 0.4 10^3/uL (0.0-0.8) 03/02/25 05:58 Baso # (Auto) 0.1 10^3/uL (0.0-0.1) 03/02/25 05:58 Nucleated RBC % (auto) 0 % 03/02/25 05:58 Nucleated RBCs # 0.0 /100WBC 03/02/25 05:58 PT 15.10 SECONDS (12.1-14.9) H 02/26/25 00:50 INR 1.11 (0.8-1.2) 02/26/25 00:50 Specimen Type Venous 02/26/25 06:08 Emigdio Test N/a 02/26/25 06:08 VBG pH 7.45 (7.32-7.42) H 02/26/25 06:08 VBG pCO2 39.6 mmHg (41-51) L 02/26/25 06:08 VBG pO2 70.6 mmHg (25-40) H 02/26/25 06:08 VBG HCO3 27.4 mmol/L (24-28) 02/26/25 06:08 VBG Base Excess 3.1 mmol/L (-3.0-3.0) H 02/26/25 06:08 VBG Hematocrit 24.4 % (42-52) L 02/26/25 06:08 O2 Delivery Device Nc 02/26/25 06:08 O2 Liters/Min 3.0 % 02/26/25 06:08 Apparatus Operator ID [email or web address] 02/26/25 06:08 Sodium 138 mmol/L (136-145) 03/02/25 05:58 Potassium 4.7 mmol/L (3.5-5.1) 03/02/25 05:58 Chloride 103 mmol/L (98-107) 03/02/25 05:58 Carbon Dioxide 24 mmol/L (22-29) 03/02/25 05:58 Anion Gap 15.7 (5-19) 03/02/25 05:58 BUN 39 mg/dL (8-23) H 03/02/25 05:58 Creatinine 1.5 mg/dL (0.7-1.2) H 03/02/25 05:58 GFR Calculation Not Reportable 03/02/25 05:58 Glucose 104 mg/dL (65-115) 03/02/25 05:58 POC Glucose 249 mg/dL (70-110) H 03/02/25 10:51 Estimat Average Glucose 143 03/01/25 04:40 Hemoglobin A1c 6.6 % (4.0-6.0) H 03/01/25 04:40 Calculated Osmolality 296 mOsm/kg (285-295) H 03/02/25 05:58 Calcium 8.8 mg/dL (8.5-10.5) 03/02/25 05:58 Phosphorus 4.9 mg/dL (2.5-4.5) H 02/27/25 02:52 Magnesium 2.2 mg/dL (1.7-2.3) 03/02/25 05:58 Iron 34 ug/dL (59-158) L 02/26/25 03:00 TIBC 220 mcg/dl 02/26/25 03:00 % Saturation 15.4 % (20-50) L 02/26/25 03:00 Unsat Iron Binding 186 ug/dL (112-347) 02/26/25 03:00 Lactate Dehydrogenase 270 U/L (135-225) H 02/26/25 06:08 Troponin T Baseline 71 ng/L (0-15) H 02/26/25 00:50 Troponin T 120 Minute 80.36 ng/L (0-15) H 02/26/25 03:00 Delta Troponin T 9.36 ABS# (0-10) 02/26/25 03:00 Troponin T Hi Sens 6Hr 95.54 ng/L (0-15) H 02/26/25 06:08 Troponin T Hi Sens 6Hr Delta 24.54 ng/L (0-12) H* 02/26/25 06:08 NT-Pro-B Natriuret Pep 9737 pg/mL (0-450) H 02/26/25 00:50 Total Protein 5.6 g/dL (6.6-8.7) L 02/26/25 06:08 Urine Color Yellow (Yellow) 02/26/25 04:53 Urine Appearance Clear (CLEAR) 02/26/25 04:53 Urine pH 7 (5-7) 02/26/25 04:53 Ur Specific [place] 1.007 (1.005-1.030) 02/26/25 04:53 Urine Protein 1+ (Negative) H 02/26/25 04:53 Urine Glucose (UA) Norm (Normal) 02/26/25 04:53 Urine Ketones Negative (Negative) 02/26/25 04:53 Urine Blood Neg (Negative) 02/26/25 04:53 Urine Nitrate Negative (Negative) 02/26/25 04:53 Urine Bilirubin Neg (Negative) 02/26/25 04:53 Urine Urobilinogen 1 mg/dL (Negative) H 02/26/25 04:53 Ur Leukocyte Esterase 1+ (Negative) H 02/26/25 04:53 Urine RBC 0-4 /hpf (0-2) H 02/26/25 04:53 Urine WBC 11-20 /hpf (0-5) H 02/26/25 04:53 Ur Squamous Epith Cells 0-4 /hpf (0-5) H 02/26/25 04:53 Amorphous Sediment Not Reportable 02/26/25 04:53 Urine Bacteria None /hpf (NONE) 02/26/25 04:53 Fine Granular Casts 2.46 /lpf 02/26/25 04:53 Fluid Color Yellow 02/26/25 13:30 Fluid Appearance Clear 02/26/25 13:30 Fluid WBC 317 /uL 02/26/25 13:30 Fluid RBC 0 10^3/uL 02/26/25 13:30 Fluid Hematocrit 0.0 % 02/26/25 13:30 Fld Polynuclear WBCs # 0.008 02/26/25 13:30 Fld Polynuclear WBCs % 2.500 % 02/26/25 13:30 Fl Mononucl WBCs #(Auto) 0.309 02/26/25 13:30 Fl Mononuclear % Auto 97.500 % 02/26/25 13:30 Fld Crystal Laterality Unk 02/26/25 13:30 Fluid Albumin 2.1 g/dL 02/26/25 13:30 Fluid Creatinine 1.66 (0.7-1.2) H 02/26/25 13:30 Pleural pH 7.50 (6.5-7.5) 02/26/25 13:30 Pleural Total Protein 3.3 g/dL 02/26/25 13:30 Pleural LDH 125 U/L 02/26/25 13:30 Pleural Glucose 204.0 mg/dL 02/26/25 13:30 Pleural Triglycerides 18 mg/dL 02/26/25 13:30 Vitals Last Vital Signs Temp 97.7 F 03/02/25 07:43 Pulse 91 03/02/25 07:43 Resp 18 03/02/25 07:43 BP 160/69 03/02/25 07:43 Pulse Ox 88 L 03/02/25 10:35 O2 Del Method Room Air 03/02/25 07:43 O2 Flow Rate 1 03/02/25 10:35 Discharge Plan Discharge Patient Disposition: Home Condition: Stable Prescriptions: New atorvastatin [Lipitor] 40 mg tablet 40 mg PO DAILY Qty: 30 0RF Jardiance 10 mg tablet 10 mg PO DAILY Qty: 30 0RF Continued duloxetine [Cymbalta] 20 mg capsule,delayed release(DR/EC) 20 mg PO QAM ferrous sulfate 325 mg (65 mg iron) tablet 325 mg PO QAM pantoprazole 40 mg tablet,delayed release (DR/EC) 40 mg PO BEDTIME tamsulosin 0.4 mg capsule 0.4 mg PO QPM Qty: 90 3RF folic acid 1 mg tablet 1 mg PO QAM methotrexate sodium 2.5 mg tablet 10 mg PO Q7D Rx Instructions: 4 TABS WEEKLY ON SATURDAY sucralfate 1 gram tablet 1 g PO QID PRN (Reason: UNKNOWN) gabapentin 100 mg capsule 200 mg PO TID Enbrel SureClick 50 mg/mL (1 mL) pen injector 50 mg SUBCUT Q7D Rx Instructions: ON sun furosemide 40 mg tablet 40 mg PO BID Qty: 180 3RF clopidogrel [Plavix] 75 mg tablet 75 mg PO QAM metoprolol succinate 50 mg Tablet Extended Release 24 Hr 50 mg PO DAILY magnesium 250 mg Tablet 250 mg PO DAILY acetaminophen 500 mg Tablet 500 mg PO Q6H PRN (Reason: Pain) nitroglycerin [Nitrostat] 0.4 mg Tablet, Sublingual 0.4 mg SUBLINGUAL Q5M PRN (Reason: Chest Pain) Rx Instructions: do not exceed 3 doses per episode potassium chloride 10 mEq capsule, extended release 20 meq PO QAM cetirizine 10 mg tablet 10 mg PO BEDTIME insulin aspart U-100 [Novolog FlexPen U-100 Insulin] 100 unit/mL (3 mL) insulin pen See Rx Instructions .ROUTE .COMPLEX Rx Instructions: sliding scale tid sennosides [Senokot] 8.6 mg Tablet 17.2 mg PO BEDTIME PRN (Reason: Constipation) Centrum Men 8 mg iron- 200 mcg-600 mcg Tablet 1 tab PO QAM (DME) pen needle, diabetic 32 gauge x 5/32 needle See Rx Instructions .Route Rx Instructions: test 4 times daily isosorbide mononitrate 60 mg Tablet Extended Release 24 Hr 60 mg PO DAILY Qty: 30 0RF Xarelto 20 mg Tablet 20 mg PO QPM Rx Instructions: must administer with evening meal Discontinued lisinopril 40 mg tablet 40 mg PO QAM Lantus Solostar U-100 Insulin 100 unit/mL (3 mL) insulin pen 20 unit SUBCUT BID Dose Instruction: inject 40 units SUBCUTANEOUSLY IN THE EVENING metformin 500 mg tablet 500 mg PO BID hydralazine 50 mg tablet 50 mg PO TID Qty: 270 3RF pravastatin 40 mg tablet 40 mg PO BEDTIME Rx Instructions: Take 1 tablet by mouth once daily Discharge Orders: Discharge Order (Routine); Ordered 03/02/25 Ordered By: Greer Greco Other Ambulatory Orders: DME: Oxygen (Order) Location: None Selected Ordered By: Greer Greco Basic Metabolic Panel (Routine) Timeframe: 3 Days Facility: [facility] - Location: Lab - Main Lab Ordered By: Greer Greco Referrals: Gabbie Fu NP [Nurse Practitioner, Cardiology] - 03/04/25 1:30 pm Sweta Watson NP [Referring, Unknown] - 03/09/25 9:30 am Referral Note: This is the soonest available appointment the clinic has but if they can get you in sooner they will give you a call Gloria Lucas MD [Physician, Cardiology] - 1 month Referral Note: This appointment will be scheduled after you see Gabbie Fu NP in the clinic. Mor Vega MD, MBBS, MPH [Referring, Pulmonology] - 1-3 days Referral Note: We have notified your physician's clinic of the need for a follow-up appointment to be scheduled. If you have not heard from them within the next 2 business days, please call them directly. Discharge Diet: Cardiac and Diabetic Discharge Activity: Resume usual activity and Oxygen as instructed Patient Instructions: Spironolactone (By mouth), Atorvastatin (By mouth), Levofloxacin (By mouth) (Levaquin, Levaquin Leva-yasmany), Empagliflozin (By mouth) (Jardiance), CHF Stoplight, Opioid Safety Activity Restrictions/Additional Instructions: Low dose intensity sliding scale Less than 70 Hold all insulin and initiate hypoglycemia protocol. 70-150 0 units 151-174 2 units 175-199 4 units 200-224 6 units 225-249 8 units 250-274 10 units 275-299 12 units Greater than 300 Administer 14 units and call the provider. Discharge Attestations Time Spent in Discharge Care*: less than 30 min Status at Discharge: Cognitive status at discharge: cognitively intact , Behavioral status at discharge: cooperative , Quality Metrics Clinical Quality Measures [ No reported AMI, CVA or VTE this stay] Coding Level of Care Code Acute Code for Chg Fwd Diagnoses Elevated troponin R79.89 Acute on chronic heart failure with preserved ejection fraction I50.33 S/P femoral-popliteal bypass surgery Z95.828 Persistent atrial fibrillation I48.19 Atrial fibrillation type: persistent (not longstanding) Carotid stenosis, bilateral I65.23 HTN (hypertension), benign I10 Pleural effusion J90
[2025-03-02] MEDS: insulin lispro 100 unit/1 mL SUBCUT (12:12)
--- NOTE | 2025-03-02 12:20 | P.PN_ITS ---
Subjective 2 Subjective: Patient is feeling much better. Overall cardiovascular status seems to be stable. No new symptoms Medications: Medication Review Details: Current Medications Acetaminophen (Acetaminophen 325 Mg Tablet) 650 mg PO Q6H PRN PRN Reason: Mild/Mod Pain Or Temp >/= 101 Last Admin: 03/01/25 20:05 Dose: 650 mg Atorvastatin Calcium (Atorvastatin 40 Mg Tablet) 40 mg PO DAILY [facility] Cetirizine HCl (Cetirizine 10 Mg Tablet) 10 mg PO BEDTIME [facility] Last Admin: 03/01/25 20:06 Dose: 10 mg Clopidogrel Bisulfate (Clopidogrel 75 Mg Tablet) 75 mg PO QAM [facility] Last Admin: 03/02/25 05:11 Dose: 75 mg Duloxetine HCl (Duloxetine 20 Mg Capsule) 20 mg PO QAM [facility] Last Admin: 03/02/25 05:11 Dose: 20 mg Ferrous Sulfate (Ferrous Sulfate Ec 325 Mg Tablet) 325 mg PO QAM [facility] Last Admin: 03/02/25 05:11 Dose: 325 mg Folic Acid (Folic Acid 1 Mg Tablet) [facility] [place] Admin: 03/02/25 05:11 Dose: 1 mg Furosemide (Furosemide 40 Mg Tablet) 40 mg PO BID@ [facility] Gabapentin (Gabapentin 100 Mg Capsule) 200 mg PO TID [facility] Last Admin: 03/02/25 08:17 Dose: 200 mg Glucagon (Glucagon 1 Mg/Ml Kit 1 Ml) 1 mg IM ONCE PRN; Protocol PRN Reason: Adult Acute Hypoglycemia Nursing Prot. Hydralazine HCl (Hydralazine 50 Mg Tablet) 25 mg PO TID [facility] Dextrose (D5w) 500 mls @ 0 mls/hr IV ONCE PRN; Protocol PRN Reason: Adult Acute Hypoglycemia Prot Dextrose (D10w) 125 mls @ 750 mls/hr IV PRN PRN; Protocol PRN Reason: Adult Acute Hypoglycemia Nursing Protocol Dextrose (D10w) 250 mls @ 1,000 mls/hr IV PRN PRN; Protocol PRN Reason: Adult Acute Hypoglycemia Nursing Protocol Insulin Glargine (Insulin Glargine 100 Units/1 Ml) 20 unit SUBCUT BID [facility] On Hold: 03/01/25 11:58 Last Admin: 03/01/25 11:45 Dose: Not Given Insulin Human Lispro (Insulin Lispro 100 Unit/1 Ml) 0 unit SUBCUT WM&BEDTIME [facility]; Protocol Last Admin: 03/02/25 12:12 Dose: 1 unit Isosorbide Mononitrate (Isosorbide Mononitrate Er 60 Mg Tablet) 60 mg PO DAILY [facility] Last Admin: 03/02/25 08:17 Dose: 60 mg Lisinopril (Lisinopril 20 Mg Tablet) 40 mg PO QAM [facility] On Hold: 02/27/25 07:14 Last Admin: 02/26/25 11:17 Dose: Not Given Metoprolol Succinate (Metoprolol Succinate Er (24 Hr) 50 Mg Tablet) 50 mg PO DAILY [facility] Last Admin: 03/02/25 08:18 Dose: 50 mg Multivitamins Therapeutic (Multivitamin Therapeutic Tablet) 1 tab PO QAM [facility] Last Admin: 03/02/25 05:11 Dose: 1 tab Nicotine (Nicotine 21 Mg Patch) 1 patch TRANSDERMA DAILY [facility] Last Admin: 03/02/25 08:17 Dose: 1 patch Non-Formulary Medication (Etanercept) 50 mg SUBCUT WEEKLY [facility] Last Admin: 02/28/25 15:59 Dose: 50 mg Ondansetron HCl (Ondansetron 2 Mg/Ml Sdv 2 Ml) 4 mg IVP Q8H PRN PRN Reason: vomiting, or N/V if npo Pantoprazole Sodium (Pantoprazole Dr 40 Mg Tablet) 40 mg PO BEDTIME [facility] Last Admin: 03/01/25 20:06 Dose: 40 mg Potassium Chloride (Potassium Chloride Er 20 Meq Tablet) 20 meq PO DAILY [facility] Last Admin: 03/02/25 08:17 Dose: 20 meq Rivaroxaban (Rivaroxaban 10 Mg Tablet) 20 mg PO QPM [facility] Last Admin: 03/01/25 18:33 Dose: 20 mg Senna (Sennosides 8.6 Mg Tablet) 17.2 mg PO BEDTIME PRN PRN Reason: CONSTIPATION Spironolactone (Spironolactone 25 Mg Tablet) 25 mg PO DAILY [facility] Sucralfate (Sucralfate 1 Gm Tablet) 1 gm PO QID PRN PRN Reason: UNKNOWN Tamsulosin HCl (Tamsulosin 0.4 Mg Capsule) 0.4 mg PO QPM [facility] Last Admin: 03/01/25 18:34 Dose: 0.4 mg Vitals/I&O/Wt Last Vital Signs Temp 97.5 F L 03/02/25 11:46 Pulse 93 03/02/25 11:46 Resp 16 03/02/25 11:46 BP 148/68 03/02/25 11:46 Pulse Ox 97 03/02/25 11:46 O2 Del Method Room Air 03/02/25 11:46 O2 Flow Rate 1 03/02/25 10:35 03/01/25 03/02/25 03/02/25 22:59 06:59 14:59 Intake Total 360 / 1180 360 / 360 Output Total 550 / 850 700 / 1550 770 / 770 Balance -190 / 330 -700 / -370 -410 / -410 Weight last 48 hrs Weight 161 lb Weight 160 lb 14.4 oz Physical Exam 2 Narrative: GENERAL: The patient is alert and oriented times three. Not in any acute distress. HEENT: No significant pallor, icterus or lymphadenopathy.Oral cavity: There are no mucous membrane lesions. NECK: Trachea appears to be central. No masses noted. No JVD or thyromegaly appreciated. RESPIRATORY: Chest is symmetrical. No intercostals muscle retraction or any accessory muscle activation. There is no chest wall tenderness. Breath sounds are heard bilaterally. Breath sounds are slightly diminished at the right base. BREASTS: Deferred. HEART: The heart sounds are normal. No S3 or S4. Short systolic murmur grade 3 or 6 in the left sternal border. No diastolic murmurs. No pericardial rub ABDOMEN: No vessel pulsations or distention. No tenderness. No organomegaly appreciated. Bowel sounds are normally heard. : Deferred. RECTAL: Deferred. LYMPHATIC: No lymphadenopathy noted in the neck. EXTREMITIES:1- 2+ edema of the right lower extremity. MUSCULOSKELETAL: Bony amputation of the left side. 2+ edema of the right lower extremity. Extremely weak dorsalis pedis and posterior tibial pulses. SKIN: There are no significant rashes or ecchymosis NEUROPSYCHIATRIC: The patient is alert and oriented x3. Appears to be in a good mood. No tremors or rigidity noted. Data 03/02/25 05:58 03/02/25 05:58 Other Labs: Laboratory Last Values WBC 9.95 10^3/uL (3.29-11.43) 03/02/25 05:58 RBC 2.48 10^6/uL (3.85-5.65) L 03/02/25 05:58 Hgb 8.10 g/dL (11.27-16.99) L 03/02/25 05:58 Hct 26.7 % (37-53) L 03/02/25 05:58 MCV 107.7 fl (82-101) H 03/02/25 05:58 MCH 32.7 pg (27-33) 03/02/25 05:58 MCHC 30.3 g/dL (30-55) 03/02/25 05:58 RDW 19.5 % (12.1-15.1) H 03/02/25 05:58 Plt Count 269 10^3/cmm (157-399) 03/02/25 05:58 MPV 10.2 fL (7.4-10.4) 03/02/25 05:58 Neut % (Auto) 50.1 % 03/02/25 05:58 Lymph % (Auto) 21.8 % 03/02/25 05:58 Hood % (Auto) 21.0 % 03/02/25 05:58 Eos % (Auto) 4.3 % 03/02/25 05:58 Baso % (Auto) 0.6 % 03/02/25 05:58 Neut # (Auto) 4.98 10^3/uL (1.8-7.7) 03/02/25 05:58 Lymph # (Auto) 2.2 10^3/uL (0.8-4.8) 03/02/25 05:58 Hood # (Auto) 2.1 10^3/uL (0.2-0.9) H 03/02/25 05:58 Eos # (Auto) 0.4 10^3/uL (0.0-0.8) 03/02/25 05:58 Baso # (Auto) 0.1 10^3/uL (0.0-0.1) 03/02/25 05:58 Nucleated RBC % (auto) 0 % 03/02/25 05:58 Nucleated RBCs # 0.0 /100WBC 03/02/25 05:58 PT 15.10 SECONDS (12.1-14.9) H 02/26/25 00:50 INR 1.11 (0.8-1.2) 02/26/25 00:50 Specimen Type Venous 02/26/25 06:08 Emigdio Test N/a 02/26/25 06:08 VBG pH 7.45 (7.32-7.42) H 02/26/25 06:08 VBG pCO2 39.6 mmHg (41-51) L 02/26/25 06:08 VBG pO2 70.6 mmHg (25-40) H 02/26/25 06:08 VBG HCO3 27.4 mmol/L (24-28) 02/26/25 06:08 VBG Base Excess 3.1 mmol/L (-3.0-3.0) H 02/26/25 06:08 VBG Hematocrit 24.4 % (42-52) L 02/26/25 06:08 O2 Delivery Device Nc 02/26/25 06:08 O2 Liters/Min 3.0 % 02/26/25 06:08 Certified Prosthetist/Orthotist ID [email or web address] 02/26/25 06:08 Sodium 138 mmol/L (136-145) 03/02/25 05:58 Potassium 4.7 mmol/L (3.5-5.1) 03/02/25 05:58 Chloride 103 mmol/L (98-107) 03/02/25 05:58 Carbon Dioxide 24 mmol/L (22-29) 03/02/25 05:58 Anion Gap 15.7 (5-19) 03/02/25 05:58 BUN 39 mg/dL (8-23) H 03/02/25 05:58 Creatinine 1.5 mg/dL (0.7-1.2) H 03/02/25 05:58 GFR Calculation Not Reportable 03/02/25 05:58 Glucose 104 mg/dL (65-115) 03/02/25 05:58 POC Glucose 249 mg/dL (70-110) H 03/02/25 10:51 Estimat Average Glucose 143 03/01/25 04:40 Hemoglobin A1c 6.6 % (4.0-6.0) H 03/01/25 04:40 Calculated Osmolality 296 mOsm/kg (285-295) H 03/02/25 05:58 Calcium 8.8 mg/dL (8.5-10.5) 03/02/25 05:58 Phosphorus 4.9 mg/dL (2.5-4.5) H 02/27/25 02:52 Magnesium 2.2 mg/dL (1.7-2.3) 03/02/25 05:58 Iron 34 ug/dL (59-158) L 02/26/25 03:00 TIBC 220 mcg/dl 02/26/25 03:00 % Saturation 15.4 % (20-50) L 02/26/25 03:00 Unsat Iron Binding 186 ug/dL (112-347) 02/26/25 03:00 Lactate Dehydrogenase 270 U/L (135-225) H 02/26/25 06:08 Troponin T Baseline 71 ng/L (0-15) H 02/26/25 00:50 Troponin T 120 Minute 80.36 ng/L (0-15) H 02/26/25 03:00 Delta Troponin T 9.36 ABS# (0-10) 02/26/25 03:00 Troponin T Hi Sens 6Hr 95.54 ng/L (0-15) H 02/26/25 06:08 Troponin T Hi Sens 6Hr Delta 24.54 ng/L (0-12) H* 02/26/25 06:08 NT-Pro-B Natriuret Pep 9737 pg/mL (0-450) H 02/26/25 00:50 Total Protein 5.6 g/dL (6.6-8.7) L 02/26/25 06:08 Urine Color Yellow (Yellow) 02/26/25 04:53 Urine Appearance Clear (CLEAR) 02/26/25 04:53 Urine pH 7 (5-7) 02/26/25 04:53 Ur Specific [place] 1.007 (1.005-1.030) 02/26/25 04:53 Urine Protein 1+ (Negative) H 02/26/25 04:53 Urine Glucose (UA) Norm (Normal) 02/26/25 04:53 Urine Ketones Negative (Negative) 02/26/25 04:53 Urine Blood Neg (Negative) 02/26/25 04:53 Urine Nitrate Negative (Negative) 02/26/25 04:53 Urine Bilirubin Neg (Negative) 02/26/25 04:53 Urine Urobilinogen 1 mg/dL (Negative) H 02/26/25 04:53 Ur Leukocyte Esterase 1+ (Negative) H 02/26/25 04:53 Urine RBC 0-4 /hpf (0-2) H 02/26/25 04:53 Urine WBC 11-20 /hpf (0-5) H 02/26/25 04:53 Ur Squamous Epith Cells 0-4 /hpf (0-5) H 02/26/25 04:53 Amorphous Sediment Not Reportable 02/26/25 04:53 Urine Bacteria None /hpf (NONE) 02/26/25 04:53 Fine Granular Casts 2.46 /lpf 02/26/25 04:53 Fluid Color Yellow 02/26/25 13:30 Fluid Appearance Clear 02/26/25 13:30 Fluid WBC 317 /uL 02/26/25 13:30 Fluid RBC 0 10^3/uL 02/26/25 13:30 Fluid Hematocrit 0.0 % 02/26/25 13:30 Fld Polynuclear WBCs # 0.008 02/26/25 13:30 Fld Polynuclear WBCs % 2.500 % 02/26/25 13:30 Fl Mononucl WBCs #(Auto) 0.309 02/26/25 13:30 Fl Mononuclear % Auto 97.500 % 02/26/25 13:30 Fld Crystal Laterality Unk 02/26/25 13:30 Fluid Albumin 2.1 g/dL 02/26/25 13:30 Fluid Creatinine 1.66 (0.7-1.2) H 02/26/25 13:30 Pleural pH 7.50 (6.5-7.5) 02/26/25 13:30 Pleural Total Protein 3.3 g/dL 02/26/25 13:30 Pleural LDH 125 U/L 02/26/25 13:30 Pleural Glucose 204.0 mg/dL 02/26/25 13:30 Pleural Triglycerides 18 mg/dL 02/26/25 13:30 Micro: Microbiology 02/26/25 13:30 Gram Stain - Final Pleural Fluid Body Fluid Culture - Final 02/26/25 13:30 Mycobacterial Smear - Preliminary Body Fluids - Pleura A&P Assessment and plan (1) Elevated troponin: Doses of Myocardial perfusion imaging were discussed with the patient. For further evaluation of his coronary status, he requires a cardiac catheterization. however In view of his chronic kidney disease, he carries a higher risk for contrast-induced nephropathy. since the patient is remaining stable with no chest pain and also since the area of ischemia is small, and shared decision was made to hold off on any invasive procedures at this point. It was decided to optimize medical treatment (2) Acute on chronic heart failure with preserved ejection fraction: The heart failure is getting compensated. may continue with current management. (3) S/P femoral-popliteal bypass surgery: Currently asymptomatic. 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 Continue on the current management (4) Atrial fibrillation: Patient had the ablation at the [facility], last month. May continue on the oral anticoagulation for the time being (5) Carotid stenosis, bilateral: Currently asymptomatic. May continue on the current management. (6) HTN (hypertension), benign: Blood pressure is in the normal range-low normal side. Will continue on the current medications. (7) Pleural effusion: Most likely from the heart failure. Status post thoracentesis. Clinically it is improving. Patient is remaining afebrile. Plan Discharge home today Appointment to be seen by the nurse practitioner at the [facility] in 1 week Appointment with the primary immigration specialist in 1 month PDMP PDMP Reviewed: Not Reviewed Attestations 2 Medical Necessity Statement*: Possible discharge home today Coding Level of Care Code 91204 Diagnoses Elevated troponin R79.89 Acute on chronic heart failure with preserved ejection fraction I50.33 S/P femoral-popliteal bypass surgery Z95.828 Persistent atrial fibrillation I48.19 Atrial fibrillation type: persistent (not longstanding) Carotid stenosis, bilateral I65.23 HTN (hypertension), benign I10 Pleural effusion J90
--- NOTE | 2025-03-02 12:27 | PC.NURSE ---
Dr. Lucas just saw at bedside and is OK with discharge
[2025-03-03 20:04] LABS: Amylase, Pleural Fluid 33 U/L
== END 2025-03-02 12:43 | disposition home or self-care (01) | DRG 280 ==
LOC: ER 02-26 03:15 → MEDSURG 02-26 03:27
PROVIDERS: Admitting Provider Internal Medicine; Emergency Provider Family Medicine; PCP Family Medicine; Visit Provider Internal Medicine
DX: I13.0 Hypertensive heart and chronic kidney disease with heart failure and stage 1 through stage 4 chronic kidney disease, or unspecified chronic kidney disease (principal); I50.33 Acute on chronic diastolic (congestive) heart failure; I21.A1 Myocardial infarction type 2; J96.01 Acute respiratory failure with hypoxia; I48.19 Other persistent atrial fibrillation; J98.11 Atelectasis; N18.9 Chronic kidney disease, unspecified; E11.22 Type 2 diabetes mellitus with diabetic chronic kidney disease; Z79.02 Long term (current) use of antithrombotics/antiplatelets; Z79.4 Long term (current) use of insulin; Z89.612 Acquired absence of left leg above knee; I65.23 Occlusion and stenosis of bilateral carotid arteries; W01.0XXA Fall on same level from slipping, tripping and stumbling without subsequent striking against object, initial encounter; E11.51 Type 2 diabetes mellitus with diabetic peripheral angiopathy without gangrene; E11.40 Type 2 diabetes mellitus with diabetic neuropathy, unspecified; F32.A Depression, unspecified; Z79.01 Long term (current) use of anticoagulants; Z79.84 Long term (current) use of oral hypoglycemic drugs; Z79.631 Long term (current) use of antimetabolite agent; Z87.01 Personal history of pneumonia (recurrent); Z85.51 Personal history of malignant neoplasm of bladder; Z95.0 Presence of cardiac pacemaker; Z95.5 Presence of coronary angioplasty implant and graft; Z98.890 Other specified postprocedural states; D50.9 Iron deficiency anemia, unspecified; F17.210 Nicotine dependence, cigarettes, uncomplicated; E78.1 Pure hyperglyceridemia; N52.9 Male erectile dysfunction, unspecified; J44.9 Chronic obstructive pulmonary disease, unspecified; I25.10 Atherosclerotic heart disease of native coronary artery without angina pectoris; M06.9 Rheumatoid arthritis, unspecified; N40.1 Benign prostatic hyperplasia with lower urinary tract symptoms
CPT/HCPCS: 32555; 36415; 36416; 71045; 78452; 80048; 80503; 81001; 82042; 82150; 82570; 82803; 82945; 82962; 83036; 83540; 83550; 83615; 83735; 83880; 83986; 84100; 84155; 84157; 84478; 84484; 85014; 85018; 85025; 85610; 87015; 87070; 87075; 87077; 87086; 87116; 87186; 87205; 87206; 87801; 88112; 88305; 89050; 93005; 93017; 93308; 94760; 96372; 96374; 96375; 97161; 97530; 99285; A9500; J1644; J1815; J1938; J1956; J2785; J9999

== ENCOUNTER 2025-03-11 14:47 | Outpatient (CLI) | payer MEDICARE, BC, SELFPAY ==
--- NOTE | 2025-03-11 14:51 | XR_ITS ---
WS: [id number] Exam: XR hip RT 2-3V wo/w pel* [id number] Date/Time of Exam: 03/11/2025 3:04 PM Reason For Exam: PAIN IN R HIP No fracture. The joint space is relatively well-maintained. Minimal degenerative changes of the acetabulum. Numerous surgical clips in the RIGHT inguinal region. The pelvis is intact. LEFT superficial femoral artery graft noted. Bifurcated graft partially visualized in the region of the lower abdominal aorta with RIGHT common iliac graft. XR/XR hip RT 2-3V wo/w pel* [id number] IMPRESSION: 1. Minimal degenerative change of the RIGHT hip but no fracture or other signif icant finding. Additional postoperative changes in the pelvis as discussed susan spence.
== END 2025-03-11 14:48 | disposition home or self-care (01) ==
LOC: RAD 14:50
PROVIDERS: PCP Nurse Practitioner Family; Visit Provider Nurse Practitioner Family
DX: I13.0 Hypertensive heart and chronic kidney disease with heart failure and stage 1 through stage 4 chronic kidney disease, or unspecified chronic kidney disease (principal); I50.43 Acute on chronic combined systolic (congestive) and diastolic (congestive) heart failure; N18.9 Chronic kidney disease, unspecified; Z95.5 Presence of coronary angioplasty implant and graft; Z79.01 Long term (current) use of anticoagulants; I73.9 Peripheral vascular disease, unspecified
CPT/HCPCS: 73502; 99214

== ENCOUNTER → 2025-03-30 14:49 | Outpatient (BNVA) | payer MEDICARE, BC, SELFPAY | PROVIDERS: PCP Nurse Practitioner Family; Visit Provider Nurse Practitioner Family | DX: I87.2 Venous insufficiency (chronic) (peripheral) (principal); L82.1 Other seborrheic keratosis; L98.8 Other specified disorders of the skin and subcutaneous tissue; L57.8 Other skin changes due to chronic exposure to nonionizing radiation; X32.XXXA Exposure to sunlight, initial encounter; D18.01 Hemangioma of skin and subcutaneous tissue; L81.4 Other melanin hyperpigmentation; L73.8 Other specified follicular disorders; Z08 Encounter for follow-up examination after completed treatment for malignant neoplasm; Z85.828 Personal history of other malignant neoplasm of skin; L82.0 Inflamed seborrheic keratosis; Z78.9 Other specified health status | CPT/HCPCS: 11102; 17000; 17110; 99214 ==

== ENCOUNTER → 2025-05-25 14:21 | Outpatient (BNVA) | payer MEDICARE, BC, SELFPAY | PROVIDERS: PCP Nurse Practitioner Family; Visit Provider Thoracic Surgery (Cardiothoracic Vascular Surgery) | DX: E11.52 Type 2 diabetes mellitus with diabetic peripheral angiopathy with gangrene (principal); E11.622 Type 2 diabetes mellitus with other skin ulcer; L97.821 Non-pressure chronic ulcer of other part of left lower leg limited to breakdown of skin | CPT/HCPCS: 97597; 99213; A6021; A6212 ==

== ENCOUNTER → 2025-06-01 13:51 | Outpatient (BNVA) | payer MEDICARE, BC, SELFPAY | PROVIDERS: PCP Nurse Practitioner Family; Visit Provider Thoracic Surgery (Cardiothoracic Vascular Surgery) | DX: E11.52 Type 2 diabetes mellitus with diabetic peripheral angiopathy with gangrene (principal); E11.622 Type 2 diabetes mellitus with other skin ulcer; L97.811 Non-pressure chronic ulcer of other part of right lower leg limited to breakdown of skin | CPT/HCPCS: 97597; A6021 ==

== ENCOUNTER → 2025-06-09 14:06 | Outpatient (BNVA) | payer MEDICARE, BC, SELFPAY | PROVIDERS: PCP Nurse Practitioner Family; Visit Provider Thoracic Surgery (Cardiothoracic Vascular Surgery) | DX: E11.52 Type 2 diabetes mellitus with diabetic peripheral angiopathy with gangrene (principal); E11.622 Type 2 diabetes mellitus with other skin ulcer; L97.811 Non-pressure chronic ulcer of other part of right lower leg limited to breakdown of skin | CPT/HCPCS: 97597 ==

== ENCOUNTER → 2025-06-16 14:15 | Outpatient (BNVA) | payer MEDICARE, BC, SELFPAY | PROVIDERS: PCP Nurse Practitioner Family; Visit Provider Thoracic Surgery (Cardiothoracic Vascular Surgery) | DX: E11.52 Type 2 diabetes mellitus with diabetic peripheral angiopathy with gangrene (principal); E11.622 Type 2 diabetes mellitus with other skin ulcer; L97.811 Non-pressure chronic ulcer of other part of right lower leg limited to breakdown of skin | CPT/HCPCS: 97597 ==

== ENCOUNTER → 2025-06-30 13:56 | Outpatient (BNVA) | payer MEDICARE, BC, SELFPAY | PROVIDERS: PCP Nurse Practitioner Family; Visit Provider Thoracic Surgery (Cardiothoracic Vascular Surgery) | DX: E11.52 Type 2 diabetes mellitus with diabetic peripheral angiopathy with gangrene (principal); E11.622 Type 2 diabetes mellitus with other skin ulcer; L97.811 Non-pressure chronic ulcer of other part of right lower leg limited to breakdown of skin | CPT/HCPCS: 97597 ==

== ENCOUNTER → 2025-07-14 13:50 | Outpatient (BNVA) | payer MEDICARE, BC, SELFPAY | PROVIDERS: PCP Nurse Practitioner Family; Visit Provider Thoracic Surgery (Cardiothoracic Vascular Surgery) | DX: E11.52 Type 2 diabetes mellitus with diabetic peripheral angiopathy with gangrene (principal); E11.622 Type 2 diabetes mellitus with other skin ulcer; L97.811 Non-pressure chronic ulcer of other part of right lower leg limited to breakdown of skin | CPT/HCPCS: 97597; A6212 ==

== ENCOUNTER → 2025-07-27 14:29 | Outpatient (BNVA) | payer MEDICARE, BC, SELFPAY | PROVIDERS: PCP Nurse Practitioner Family; Visit Provider Internal Medicine | DX: I25.10 Atherosclerotic heart disease of native coronary artery without angina pectoris (principal); Z95.0 Presence of cardiac pacemaker; I48.91 Unspecified atrial fibrillation; I11.0 Hypertensive heart disease with heart failure; I50.9 Heart failure, unspecified; Z79.01 Long term (current) use of anticoagulants | CPT/HCPCS: 99214 ==

== ENCOUNTER → 2025-07-28 13:04 | Outpatient (BNVA) | payer MEDICARE, BC, SELFPAY | PROVIDERS: PCP Nurse Practitioner Family; Visit Provider Thoracic Surgery (Cardiothoracic Vascular Surgery) | DX: Z09 Encounter for follow-up examination after completed treatment for conditions other than malignant neoplasm (principal); Z87.2 Personal history of diseases of the skin and subcutaneous tissue | CPT/HCPCS: 99212 ==